=== PATIENT | female | born 1935 | race Caucasian/White ===

== ENCOUNTER 2021-06-20 16:03 | Outpatient (CLI) | payer MEDICARE, OTHER, SELFPAY ==
--- NOTE | 2021-06-20 16:20 | MRI_ITS ---
We are attempting to reach an attending provider to discuss findings. An addendum with communication details will be sent when the communication is complete. EXAM: MR HEAD WITHOUT INTRAVENOUS CONTRAST CLINICAL INDICATION: TIA,BILAT CAROTID ARTERY STENOSIS TECHNIQUE: Multiplanar and multisequence MR images of the brain were obtained without intravenous contrast. This report was created using Trist report generation technology. COMPARISON: None. FINDINGS: BRAIN AND EXTRA-AXIAL SPACES: There is abnormal diffusion weighted signal in the Right thalamus. There is a correlation abnormal area of low ADC signal. This is consistent for an ischemic infarction. Chronic involutional changes of the brain. No intra- or extra-axial hemorrhage. No intracranial mass or mass effect. Posterior fossa structures are unremarkable. Ventricles are appropriate for age. No hydrocephalus. Basal cisterns are patent. SELLA: Unremarkable. Normal sella turcica, pituitary gland, infundibular stalk, optic chiasm and hypothalamus. AUDITORY SYSTEM: Unremarkable. The internal auditory canals are patent. BONES/JOINTS: Unremarkable. No discrete lytic or blastic abnormalities. SINUSES: Unremarkable as visualized. Clear. MASTOID AIR CELLS: Unremarkable as visualized. Clear. ORBITS: Unremarkable as visualized. Both globes, extraocular muscles, optic nerves and retrobulbar fat appear unremarkable. VASCULATURE: Unremarkable as visualized. Normal flow voids in the major intracranial circulation. 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 Electronically Signed: Tomas Chi MD at 18:05 EST Reading Location ID and State: [facility] / [place] , Service support ,
--- NOTE | 2021-06-20 16:20 | MRI_ITS ---
EXAM: MR ANGIOGRAPHY NECK WITHOUT INTRAVENOUS CONTRAST CLINICAL INDICATION: CAROTID ARTERY STENOSIS, BILAT, TIA TECHNIQUE: Routine carotid MR angiogram protocol was performed without intravenous contrast. 3D reconstructions were reviewed. Nascet criteria using the distal ICAs for comparison were used for evaluation of stenoses. This report was created using Bleachers report Query Hunter technology. COMPARISON: None. FINDINGS: RIGHT COMMON CAROTID ARTERY: Unremarkable. No occlusion or significant stenosis. No dissection. RIGHT INTERNAL CAROTID ARTERY: Unremarkable. Extracranial segment is patent with no occlusion or significant stenosis. No dissection. RIGHT EXTERNAL CAROTID ARTERY: Unremarkable. No occlusion. RIGHT VERTEBRAL ARTERY: Unremarkable. No occlusion or significant stenosis. No dissection. LEFT COMMON CAROTID ARTERY: Unremarkable. No occlusion or significant stenosis. No dissection. LEFT INTERNAL CAROTID ARTERY: There is mild atherosclerotic plaque formation of the origin of the right and left internal carotid artery with less than 50% cross sectional diameter stenosis. ALL ABOVE CRITERIA BY NASCET. No dissection. LEFT EXTERNAL CAROTID ARTERY: Unremarkable. No occlusion. LEFT VERTEBRAL ARTERY: Unremarkable. No occlusion or significant stenosis. No dissection. GREAT VESSELS OF AORTIC ARCH: Unremarkable. No significant stenosis. CAROTID STENOSIS REFERENCE USING NASCET CRITERIA: % ICA stenosis = (1 - narrowest ICA diameter/diameter of distal cervical ICA) x 100. Mild - <50% stenosis. Moderate - 50-69% stenosis. Severe - 70-94% stenosis. Near occlusion - 95-99% stenosis. Occluded - 100% stenosis. MRI/MRA Neck without Contrast IMPRESSION: There is mild atherosclerotic plaque formation of the origin of the right and left internal carotid artery with less than 50% cross sectional diameter stenosis. ALL ABOVE CRITERIA BY NASCET. Electronically Signed: Tomas Chi MD at 18:05 EST ,
== END 2021-06-20 23:59 | disposition home or self-care (01) ==
LOC: MRI 16:06
PROVIDERS: PCP Student in an Organized Health Care Education/Training Program; Visit Provider Surgery Vascular Surgery
DX: G45.9 Transient cerebral ischemic attack, unspecified (principal); E10.9 Type 1 diabetes mellitus without complications; I10 Essential (primary) hypertension
CPT/HCPCS: 70547; 70551

== ENCOUNTER 2021-09-27 10:07 | Emergency (ER) | payer MEDICARE, OTHER, SELFPAY ==
[2021-09-27 10:08] VITALS: BP 179/73; PULSE 62; RESP 18; TEMP 36.6; O2SAT 99; BMI 25.7
--- NOTE | 2021-09-27 10:36 | CT_ITS ---
STUDY: CT BRAIN WITHOUT CONTRAST REASON FOR EXAM: Female, 85 years old. History of fall. RADIATION DOSAGE (If Supplied By Facility): CTDIvol = ( 44.99 ) mGy, DLP = ( 796.11 ) mGycm TECHNIQUE: Transaxial CT imaging of the brain was performed without administration of intravenous contrast material. Individualized dose optimization techniques were used for this CT. COMPARISON: No relevant priors. FINDINGS: 1.4 cm x 3 cm left preorbital hematoma. Normal calvarium. There is mild cerebral atrophy with widening of the extra-axial spaces and ventricular dilatation. Normal white matter tracts of the cerebral hemispheres. Normal basal ganglia and thalami. Normal brainstem. Normal cerebellum. There is no intracranial hemorrhage. There are no findings of an acute ischemic infarction. Mucosal thickening of the maxillary sinuses bilaterally. CT/Brain/Head without Contrast IMPRESSION: Chronic involutional changes of the brain. Left preorbital hematoma. Electronically Signed: Husam Lynn MD at 11:19 EDT ,
--- NOTE | 2021-09-27 10:36 | CT_ITS ---
STUDY: CT CERVICAL SPINE WITHOUT CONTRAST REASON FOR EXAM: Female, 85 years old. Trauma RADIATION DOSAGE (If Supplied By Facility): CTDIvol = ( 15.71 ) mGy, DLP = ( 297.10 ) mGycm TECHNIQUE: High resolution transaxial imaging was performed without contrast material. Sagittal and coronal images were reconstructed. Individualized dose optimization techniques were used for this CT. COMPARISON: None FINDINGS: Normal craniovertebral junction. Normal anterior atlantoaxial articulation. Normal odontoid process. Normal cervical lordosis. Normal vertebral bodies and posterior osseous elements. C2-3: Mild degree of this space narrowing at the C2-C3 level with a mild central posterior spondylosis causing minimal deformity of the central canal. C3-4: Normal endplates. Normal disc height and morphology. Normal central canal and intervertebral neuroforamina. C4-5: Normal endplates. Normal disc height and morphology. Normal central canal and intervertebral neuroforamina. C5-6: Moderate degree of disc space narrowing. Spondylosis. Uncovertebral arthrosis. Moderate degree of right neural foraminal stenosis. C6-7: Marked degree of disc space narrowing and spondylosis. Left facet joint osteoarthritis and hypertrophy. No significant stenosis is seen. C7-T1: Normal endplates. Normal disc height and morphology. Normal central canal and intervertebral neuroforamina. Atherosclerotic plaque formation of the carotid bifurcation. CT/Spine Cervical without Contras IMPRESSION: Multilevel degenerative changes, as described above. Electronically Signed: Husam Lynn MD at 11:21 EDT ,
--- NOTE | 2021-09-27 10:36 | CT_ITS ---
STUDY: CT MAXILLOFACIAL SINUSES REASON FOR EXAM: Female, 85 years old. History of fall. Headaches weakness and bilateral black eyes. RADIATION DOSAGE (If Supplied By Facility): CTDIvol = ( 29.38 ) mGy, DLP = ( 562.15 ) mGycm TECHNIQUE: The patient was scanned in a multi detector CT scanner. High resolution axial imaging was performed without the administration of intravenous contrast material. Sagittal and coronal images were reconstructed. Individualized dose optimization techniques were used for this CT. COMPARISON: None. FINDINGS: FRONTAL SINUSES: Normal aeration, without mucosal inflammatory disease. ETHMOIDAL SINUSES: Normal aeration, without mucosal inflammatory disease. MAXILLARY SINUSES: Partial opacification of the maxillary sinuses bilaterally. SPHENOIDAL SINUSES: Normal aeration, without mucosal inflammatory disease. There is patency of the bilateral maxillary infundibuli with normal uncinate processes, ethmoid bullae, and hiatus semilunaris. Normal bilateral middle turbinates. Normal bilateral inferior turbinates. Normal midline nasal septum. There is patency of the bilateral nasal airways. There is evidence of a 1.8 cm x 3 cm left preorbital hematoma. Soft tissue swelling overlying the left maxillary region. The visualized bilateral orbital contents are normal. CT/Sinus/Facial Bone IMPRESSION: 1.8 cm x 3 cm left preorbital hematoma with soft tissue swelling overlying the left axillary region. Partial opacification of the maxillary sinuses bilaterally. Electronically Signed: Husam Lynn MD at 11:18 EDT ,
--- NOTE | 2021-09-27 12:55 | ED.VIS.FALL ---
HPI HPI - Fall History of Present Illness Chief Complaint: Fall Informant: patient and family Occured/Mechanism Occurred: Days Narrative Narrative: Patient presents after a fall 2 days ago. She states she was walking in the kitchen and suddenly fell. She did not lose consciousness. She is not sure why she fell. She presents with periorbital ecchymosis. She has a mild headache. She has had no nausea or vomiting. She denies vision change. She is not on an anticoagulant. [facility] Medical History (Updated 09/27/21 @ 16:[address] Mala Orozco MD) Diabetes Hyperlipidemia Hypertension Home Medications Ca carb-Ca gluc-Mg ox-Mg gluco 1 ea PO DAILY 03/19/17 [History Last Taken Unknown] aspirin 81 mg PO DAILY 03/19/17 [History Last Taken 03/20/17] bisoprolol-hydrochlorothiazide 1 tab PO DAILY 03/19/17 [History Last Taken 03/20/17] diphenhydramine HCl 50 mg PO QHS 03/19/17 [History Last Taken Unknown] furosemide 20 mg PO DAILY PRN 03/19/17 [History Last Taken Unknown] insulin glargine [Lantus] 14 unit SQ BID 03/19/17 [History Last Taken Unknown] lisinopril 40 mg PO DAILY 03/19/17 [History Last Taken 03/20/17] methocarbamol 500 mg PO Q6H PRN PRN 03/19/17 [History Last Taken Unknown] vitamin E 400 unit PO BID 03/19/17 [History Last Taken Unknown] Allergy/AdvReac Type Severity Reaction Status Date / Time bupivacaine Allergy Unknown Verified 09/27/21 10:10 [From Sensorcaine/Epinephrine] epinephrine Allergy Unknown Verified 09/27/21 10:10 [From Sensorcaine/Epinephrine] iodine Allergy Unknown Verified 09/27/21 10:10 meperidine [From Demerol] Allergy Unknown Verified 09/27/21 10:10 Social History Smoking Status: Never smoker ROS ROS ED Constitutional Constitutional ED: Denies chills or fever(s) Eyes Eyes: Reports other Details: Left eyelid swelling. ; Denies change in vision ENT ENT ED: Denies sore throat Cardiovascular Cardiovascular: Denies chest pain Respiratory/Chest Respiratory/Chest: Denies cough or dyspnea Gastrointestinal Gastrointestinal: Denies abdominal pain, nausea or vomiting Musculoskeletal Musculoskeletal: Reports neck pain; Denies back pain Integumentary Denies rash Neurologic Neurologic: Denies headache(s) or weakness Allergic/Immunologic Allergic/Immunologic ED: Denies urticaria EXAM Physical Exam Const Vital Signs: 09/27/21 10:08 09/27/21 13:03 Temperature 97.8 F Temperature Source Temporal Pulse Rate 62 72 Respiratory Rate 18 15 Blood Pressure 179/73 H 124/69 H Blood Pressure Mean 108 Pulse Ox 99 95 Oxygen Delivery Method Room Air Positive well nourished and well developed General Appearance ED: well developed HEENT Reports normocephalic HEENT Narrative: Patient does have a right periorbital ecchymosis. She has a hematoma noted to the left eyebrow and upper lid. When her left eye is opened the globe appears unaffected. Extraocular movements are fully intact. Eyes PERRL and EOMs intact bilaterally Chest Wall inspection of chest normal and palpation of chest normal Resp normal respiratory effort and clear to auscultation bilaterally Cardio regular rate and regular rhythm GI non-tender Palpation: soft Back/Spine no CVA tenderness Extremity normal to inspection and full ROM Neuro oriented x3 Neuro Narrative: No focal neurologic deficits Sensorium / Orientation: alert Psych mental status grossly normal MDM MDM MDM Narrative Medical decision making narrative: Patient sent for CT scans of the head, C-spine, facial bones. Radiography Diagnostic Testing: Clinical Impression(s) from Imaging Studies Brain CT 09/27/21 10:36 IMPRESSION: Chronic involutional changes of the brain. Left preorbital hematoma. Electronically Signed: Husam Lynn MD at 11:19 EDT , Cervical Spine CT 09/27/21 10:36 IMPRESSION: Multilevel degenerative changes, as described above. Electronically Signed: Husam Lynn MD at 11:21 EDT , Facial/Sinus 09/27/21 10:36 IMPRESSION: 1.8 cm x 3 cm left preorbital hematoma with soft tissue swelling overlying the left axillary region. Partial opacification of the maxillary sinuses bilaterally. Electronically Signed: Husam Lynn MD at 11:18 EDT , Treatment and Re-Evaluation Narrative: CT scan significant only for a preorbital hematoma over the left eye. No bony injury noted. Test results discussed with patient and family at bedside. She will continue ice packs to the area. Discharge Plan Triage Chief Complaint: Fall ED Provider: Mala Orozco Dx/Rx/DC Orders Clinical Impression: Fall, Closed head injury, Hematoma Instructions: ED Head Injury (Adult), ED Hematoma Prescriptions: No Action methocarbamol 500 MG tablet 500 mg PO Q6H PRN PRN (Reason: Muscle Spasm) RF: 0 insulin glargine [Lantus U-100 Insulin] 100 UNIT/ML solution 14 unit SQ BID RF: 0 bisoprolol-hydrochlorothiazide 1 TAB tablet 1 tab PO DAILY RF: 0 diphenhydramine HCl 25 MG capsule 50 mg PO QHS RF: 0 aspirin 81 MG tablet,chewable 81 mg PO DAILY RF: 0 furosemide 20 MG tablet 20 mg PO DAILY PRN (Reason: swelling) RF: 0 lisinopril 40 MG tablet 40 mg PO DAILY RF: 0 vitamin E 400 UNIT capsule 400 unit PO BID RF: 0 Ca carb-Ca gluc-Mg ox-Mg gluco 1 EACH tablet 1 ea PO DAILY RF: 0 Primary Care Provider: Isacc Saravia Referrals: Isacc Saravia DO [Primary Care Provider] - 5-7 Days Disposition Disposition: Home, Self Care Discharge Date/Time: 09/27/21 13:03
[2021-09-27 13:03] VITALS: BP 124/69; PULSE 72; RESP 15; O2SAT 95
== END 2021-09-27 13:03 | disposition home or self-care (01) ==
PROVIDERS: Emergency Provider Emergency Medicine; PCP Student in an Organized Health Care Education/Training Program; Visit Provider Emergency Medicine
DX: S00.12XA Contusion of left eyelid and periocular area, initial encounter (principal); E11.9 Type 2 diabetes mellitus without complications; Z79.4 Long term (current) use of insulin; W18.30XA Fall on same level, unspecified, initial encounter; Y93.01 Activity, walking, marching and hiking; Y99.8 Other external cause status; Y92.000 Kitchen of unspecified non-institutional (private) residence as the place of occurrence of the external cause; I10 Essential (primary) hypertension; Z79.82 Long term (current) use of aspirin; Z79.899 Other long term (current) drug therapy
CPT/HCPCS: 70450; 70486; 72125; 99282

== ENCOUNTER → 2022-10-27 | Outpatient (CLI) | payer MEDICARE, OTHER, SELFPAY ==
--- NOTE | 2022-10-27 08:48 | EKG12_ITS ---
Test Reason : PREOP Blood Pressure : / mmHG Vent. Rate : 066 BPM Atrial Rate : 066 BPM P-R Int : 184 ms QRS Dur : 098 ms QT Int : 402 ms P-R-T Axes : 023 -44 058 degrees QTc Int : 421 ms Normal sinus rhythm Left axis deviation Abnormal ECG Confirmed by JIMMIE HYDE, FRANCINE ([id number]), editor news JUJU MOSLEY ([id number]) on 10/27/2022 12:54:36 PM Referred By: Edis Martinez Confirmed By:FRANCINE SAMUEL MD
[2022-10-27 10:15] LABS: Hematocrit 40.4 % (37-47); Hemoglobin 12.9 g/dL (12.0-15.0); Mean Corp Hgb Conc 31.9 g/dL (32-36); Mean Corpuscular Hgb 30.1 pg (27.0-32.0); Mean Corpuscular Volume 94.2 fL (81-99); Mean Platelet Vol. 10.6 fl (6.2-12.0); Platelet Count 288 K/mm3 (150-450); RBC Distribution Width CV 13.1 % (11.6-14.6); RBC Distribution Width SD 45.2 fl (35.1-43.9); Red Blood Count 4.29 M/mm3 (4.2-5.4); White Blood Count 7.5 K/mm3 (4.4-11.0)
[2022-10-27 10:42] LABS: Anion Gap 5 (5-15); BUN 21 mg/dL (7-18); BUN/Creat Ratio 25.5 RATIO (10-20); Calcium,Total 9.2 mg/dL (8.5-10.1); Chloride 106 mmol/L (98-107); Creatinine, Serum 0.82 mg/dL (0.55-1.02); EST Glomerular Filtration Rate 70 mL/min (>60); Est Glom Filt Rate - Afr Amer 84 mL/min (>60); Glucose 245 mg/dL (74-106); Sodium Level 138 mmol/L (136-145)
== END | disposition home or self-care (01) ==
PROVIDERS: PCP Student in an Organized Health Care Education/Training Program; Referring Provider Otolaryngology; Visit Provider Otolaryngology
DX: Z01.818 Encounter for other preprocedural examination (principal)
CPT/HCPCS: 36415; 80048; 85027; 93005

== ENCOUNTER → 2024-05-26 | Outpatient (CLI) | payer MEDICARE, OTHER, SELFPAY ==
--- NOTE | 2024-05-26 09:19 | CDU_ITS ---
Reason For Study Reason For Study: Retinal Ischemia Rt. Velocities/BP Lt. Velocities/BP Prox CCA 85/10 cm/sec. Prox CCA 68/11 cm/sec. Mid CCA 91/15 cm/sec. Mid CCA 73/12 cm/sec. Dist CCA 69/11 cm/sec. Dist CCA 73/14 cm/sec. Prox ICA 70/16 cm/sec. Prox ICA 150/32 cm/sec. Mid ICA 96/24 cm/sec. Mid ICA 100/25 cm/sec. Dist ICA 93/20 cm/sec. Dist ICA 108/26 cm/sec. Rt. ICA/CCA = 1.1. Lt. ICA/CCA = 2.1. Prox ECA 83/0 cm/sec. Prox ECA 118/0 cm/sec. Rt. Vert. 0 cm/sec. Lt. Vert. 68/13 cm/sec. Right Extracranial There is heterogeneous, irregular atherosclerotic plaque noted in the right common carotid artery. There is heterogeneous, irregular atherosclerotic plaque noted in the right internal carotid artery. The atherosclerotic plaque causes acoustic shadowing. There is heterogeneous, irregular atherosclerotic plaque noted in the right external carotid artery. Flow could not be demonstrated in the right vertebral artery. Left Extracranial There is heterogeneous, irregular atherosclerotic plaque noted in the left common carotid artery. There is heterogeneous, irregular atherosclerotic plaque noted in the left internal carotid artery. The atherosclerotic plaque causes acoustic shadowing. There is heterogeneous, irregular atherosclerotic plaque noted in the left external carotid artery. Antegrade flow is noted in the left vertebral artery. Procedure Carotid Duplex 18232. This is a Carotid Duplex examination using B-mode, color flow and specral Doppler. Exam performed in department. VL/Carotid Duplex Ultrasound Interpretation Summary Mild (<50%) stenosis right extracranial internal carotid. Moderate (50-69%) stenosis left extracranial internal carotid. The right vertebral artery has no flow visualized. The Left vertebral is patent and antegrade. Limited due to calcific shadowing, alternative imaging may be beneficial. Ordering Physician: Perico Bell Referring Physician: Isacc Saravia Performed By: Altagracia Lancaster RDCS, RVT
[2024-05-26 10:56] LABS: CRP < 2.90 mg/L (0.0-3.0)
[2024-05-26 10:59] LABS: Erythrocyte Sedimentation Rate 9 mm/hr (0-30)
[2024-05-26 11:01] LABS: Absolute Lymphocyte Count 1.37 X10^3/uL (0.83-4.51); Absolute Neutrophil Count 6.4 X10^3/uL (2.0-7.7); Basophil# 0.06 X10^3/uL; Basophil% 0.7 % (0-1); Eosinophil# 0.11 X10^3/uL; Eosinophils% 1.3 % (0-5); Hematocrit 40.5 % (37-47); Hemoglobin 13.5 g/dL (12.0-15.0); Lymphocyte # 1.37 X10^3/ul (0.83-4.51); Lymphocyte % 16.1 % (19-41); Mean Corp Hgb Conc 33.3 g/dL (32-36); Mean Corpuscular Hgb 30.5 pg (27.0-32.0); Mean Corpuscular Volume 91.4 fL (81-99); Mean Platelet Vol. 11.3 fl (6.2-12.0); Monocyte# 0.54 X10^3/uL; Monocyte% 6.3 % (0-10); NRBC Flagged by Analyzer 0 % (0-5); Neutrophil # 6.41 X10^3/uL (2.7-7.7); Neutrophil % 75.1 % (47-70); Platelet Count 266 K/mm3 (150-450); RBC Distribution Width CV 13.2 % (11.6-14.6); Red Blood Count 4.43 M/mm3 (4.2-5.4); White Blood Count 8.5 K/mm3 (4.4-11.0)
== END | disposition home or self-care (01) ==
LOC: CVS 09:13
PROVIDERS: PCP Student in an Organized Health Care Education/Training Program; Referring Provider Ophthalmology; Visit Provider Ophthalmology
DX: H35.82 Retinal ischemia (principal)
CPT/HCPCS: 36415; 85025; 85652; 86140; 93880

== ENCOUNTER 2025-03-20 19:59 | Observation (INO) | payer MEDICARE, OTHER, SELFPAY ==
--- OUTSIDE RECORDS SUMMARY | 2025-03-20 19:40 | XMS RPT_ITS | CCD ---
Author Organization [facility] Care Team Providers Care Establishment Guide Name Role Phone MEDARDO GARCIA DO Primary Care Physician [phone] Jose WELLS MD, Medardo Primary Care Provider [phone] VARSHA JOB SERVICE CONSULTANT-CALL OUT CLERK, MEY A Primary Care Physi grey Ben Rounding Nurse, Jermain Unavailable Radha King RN, Marilou Osuna Unavailable Unavailable DEDETTLE DOROEL Attending Unavailable VARSHA JOB SERVICE CONSULTANT-CALL OUT CLERK, MEY A Primary Care Un available VARSHA JOB SERVICE CONSULTANT-CALL OUT CLERK, MEY A Attending Un available VARSHA JOB SERVICE CONSULTANT-CALL OUT CLERK, MEY A Primary Care Un available VENKAT LASSITER MD Consulting Unavailable VARSHA JOB SERVICE CONSULTANT-CALL OUT CLERK, MEY A Primary Care Un available TAMIKA GRACE MD Admitting Unavailable KOMAL ESTRADA MD Attending Unavailable VARSHA JOB SERVICE CONSULTANT-CALL OUT CLERK, MEY A Consulting Un available COSME WATSON MD Consulting Unavaila ble VARSHA JOB SERVICE CONSULTANT-CALL OUT CLERK, MEY A Attending Un available VARSHA JOB SERVICE CONSULTANT-CALL OUT CLERK, MEY A Primary Care Un available VARSHA JOB SERVICE CONSULTANT-CALL OUT CLERK, MEY A Primary Care Un available VARSHA JOB SERVICE CONSULTANT-CALL OUT CLERK, MEY A Attending Un available VARSHA JOB SERVICE CONSULTANT-CALL OUT CLERK, MEY A Primary Care Un available VARSHA JOB SERVICE CONSULTANT-CALL OUT CLERK, MEY A Attending Un available JONO VALLES MD Consulting Unavailable VARSHA JOB SERVICE CONSULTANT-CALL OUT CLERK, MEY A Primary Care Un available SALLY MARQUEZ MD Attending Unavailable TERI HYDE FACP, DESMOND Chambers Admitting Unavail able VARSHA JOB SERVICE CONSULTANT-CALL OUT CLERK, MEY A Primary Care Un available FARHEEN JOB SERVICE CONSULTANT-CALL OUT CLERKRAQUEL Admitting Unavail able O'CLARKE MD, SALLY Attending Unavailable JIMMY HYDE, SALLY Referring Unavailable BRAULIO HYDE, ABHIJEET Bridges Attending Unavail able HALKO DO, MEDARDO Primary Care Unavailable COSME HAGEN DO Attending Unavailable VARSHA JOB SERVICE CONSULTANT-CALL OUT CLERK, MEY A Primary Care Un available VARSHA JOB SERVICE CONSULTANT-CALL OUT CLERK, MEY A Primary Care Un available BRAULIO HYDE, ABHIJEET Bridges Attending Unavail able VARSHA JOB SERVICE CONSULTANT-CALL OUT CLERK, MEY A Primary Care Un available STAN HYDE, NEHAL Cuello Attending Unavailable VARSHA JOB SERVICE CONSULTANT-CALL OUT CLERK, MEY A Primary Care Un available BRAULIO HYDE, ABHIJEET Bridges Attending Unavail able VARSHA JOB SERVICE CONSULTANT-CALL OUT CLERK, MEY A Primary Care Un available REGINALD MCCALLUM MD Attending Unavailable ROBERTO HYDE, TAMIKA Consulting Unavailable VARSHA JOB SERVICE CONSULTANT-CALL OUT CLERK, MEY A Attending Un available VARSHA JOB SERVICE CONSULTANT-CALL OUT CLERK, MEY A Primary Care Un available Perico Maddox Referring Unavailable Perico Maddox Attending Unavailable Halko, Medardo Primary Care Unavailable Venkat Montano Attending Unavailable Perico Maddox Referring Unavailable Halko, Medardo Primary Care Unavailable BALTES JOB SERVICE CONSULTANT-CALL OUT CLERK, MARCO Primary Care Physician [phone] BALTES JOB SERVICE CONSULTANT-CALL OUT CLERK, MARCO Primary Care Unavailsantiago VARGAS MD, DAVION Osuna Attending Unavailable BALTES JOB SERVICE CONSULTANT-CALL OUT CLERK, MARCO Attending Unavailsantiago e BALTES JOB SERVICE CONSULTANT-CALL OUT CLERK, MARCO Primary Care Unavailsantiago MADDOX MD, PERICO Will Attending Unavailable VARSHA JOB SERVICE CONSULTANT-CALL OUT CLERK, MEY A Primary Care Un available Allergies Allergy Classification Reported Allergen(s) Allergy Type Date of Onset Reaction(s) Facility (20 sources) EPINEPHrine; Translations: [Epinephrine preparation (product)] Drug Allergy 2 SEVERE SHAKING, Unknown [facility] (20 sources) Iodine; Translations: [Iodine (substance)] Drug Allergy 2 HIVES, [facility] (19 sources) Meperidine; Translations: [meperidine] Drug Allergy 2 SEVERE N/V, [facility] (17 sources) rosuvastatin; Translations: [rosuvastatin] Drug Allergy Muscle pain (finding) [facility] (2 sources) Bupivacaine Drug Allergy 2 Unknown [facility] (1 source) Bupivacaine Drug Allergy 2 [facility] (1 source) Meperidine Drug Allergy 2 [facility] Medications Current Medications Medication Drug Class(es) Dates Sig (Normalized) Sig (Original) acetaminophen 500 mg oral tablet (7 sources) Start: 11-15-2023 End: 01-12-2024 Tylenol Extra Strength 500 mg oral tablet Dose : 1,000 mg = 2 tab(s), Oral, BID, X 30 day(s), # 120 tab(s), 0 Refill(s), 01/12/24 11:41:00 AM EDT, Pharmacy: [place] [facility] [id number], Left shoulder pain, 162.6, cm, 12/12/23 23:59:00 EDT, Height, kg, 12/12/23 23:59:00 EDT, Dosing Weight Start Date: 12/13/23 Stop Date: 01/12/24 Status: Ordered Start: 03-13-2023 acetaminophen Dose : 650 mg = 2 tab(s), Oral, q6hr, PRN Pain, scale 1-10, 0 Refill(s) Start Date: 03/13/23 Status: Ordered Start: 03-13-2023 take 1 capsule by [facility] every four hours as needed Tylenol 325 mg oral capsule Dose : 650 mg =, Oral, q4h, PRN Temperature greater than 38.5 degrees C, 0 Refill(s) Start Date: 03/13/23 Status: Ordered Start: 03-13-2023 Tylenol Dose : 650 mg = 1 supp, Rectal, q4h, PRN Temperature greater than 38.5 degrees C, 0 Refill(s) Start Date: 03/13/23 Status: Ordered Alcohol Swabs (8 sources) Start: 07-29-2024 Alcohol Swabs See Instructions, dx E11.65, Z74.9 test blood sugars 4 times daily (before meals and bedtime) , 300 Each EtOH swabs, 90 day supply, 3 refills, # 300 EA, 3 Refill(s), Pharmacy: [facility], Diabetes mellitus with microalbuminuria Diabetic peripheral vascular disease, 157.8, cm, 07/29/24 8:38:00 EDT, Height, 66.2, kg, 07/29/24 8:38:00 EDT, Dosing Weight Start Date: 07/29/24 Status: Ordered Medication Dispense Status: Completed Quantity: 300.0 Unit: EA Total Allowed Fills: 4 Fills Dispensed: 0 Indications: Type 2 diabetes mellitus with diabetic peripheral angiopathy without gangrene; Type 2 diabetes mellitus with other diabetic kidney complication; Start: 06-08-2023 Alcohol Swabs See Instructions, Supply 1 box, 90 day supply, test blood sugars once daily, # 1 EA, 3 Refill(s), Pharmacy: [facility], Diabetes mellitus with microalbuminuria Diabetic peripheral vascular disease, 158.5, cm, 05/28/23 13:41:00 EST, Height, 64.5, kg, 05/28/23 13:41:00 EST, Dosing Weight Start Date: 06/08/23 Status: Ordered amoxicillin 500 mg oral capsule (1 source) Penicillin-class Antibacterial Start: 08-18-2022 End: 08-28-2022 amoxicillin 500 mg oral capsule Dose : 500 mg = 1 cap(s), Oral, BID, X 10 day(s), # 20 cap(s), 0 Refill(s), 08/28/22 13:27:00 EDT, Hyperglycemia Start Date: 08/18/22 Stop Date: 08/28/22 Status: Ordered atorvastatin 10 mg oral tablet (10 sources) HMG-CoA Reductase Inhibitor Start: 12-12-2024 End: 06-30-2025 atorvastatin 10 mg oral tablet Dose : 10 mg = 1 tab(s), Oral, Daily, # 100 tab(s), 1 Refill(s), Pharmacy: [facility], History of CVA (cerebrovascular accident) Type 2 diabetes mellitus, 159, cm, 12/12/24 11:05:00 EDT, Height, kg, 12/12/24 11:05:00 EDT, Dosing Weight Start Date: 12/12/24 Stop Date: 06/30/25 Status: Ordered Medication Dispense Status: Completed Quantity: 100.0 Unit: tab(s) Total Allowed Fills: 2 Fills Dispensed: 0 Indications: Type 2 diabetes mellitus without complications; Personal history of transient ischemic attack (TIA), and cerebral infarction without residual deficits; Start: 02-21-2023 End: 08-20-2023 atorvastatin 80 mg oral tabl et Dose : 80 mg = 1 tab(s), Oral, qDay, # 90 tab(s), 1 Refill(s), Pharmacy: [facility] #[id number], 160, cm, 02/21/23 13:38:00 EST, Height, kg, 02/21/23 13:38:00 EST, Dosing Weight Start Date: 02/21/23 Stop Date: 08/20/23 Status: Ordered Start: 04-04-2022 End: 10-01-2022 atorvastatin 80 mg oral tabl et Dose : 80 mg = 1 tab(s), Oral, qDay, # 90 tab(s), 1 Refill(s), Pharmacy: [facility] #[id number], 159, cm, 04/04/22 10:05:00 EST, Height, kg, 04/04/22 10:05:00 EST, Dosing Weight Start Date: 04/04/22 Stop Date: 10/01/22 Status: Ordered Start: 06-21-2021 End: 12-18-2021 atorvastatin 80 mg oral tabl et Dose : 80 mg = 1 tab(s), Oral, qDay, # 90 tab(s), 1 Refill(s), Pharmacy: [id number] 159, cm, 06/21/21 14:11:00 EST, Height, kg, 06/21/21 14:11:00 EST, Dosing Weight Start Date: 06/21/21 Stop Date: 12/18/21 Status: Ordered Start: 05-10-2021 End: 11-06-2021 atorvastatin 40 mg oral tabl et Dose : 40 mg = 1 tab(s), Oral, qDay, # 90 tab(s), 1 Refill(s), Pharmacy: [facility] 159, cm, 05/10/21 8:01:00 EST, Height, kg, 05/10/21 8:01:00 EST, Dosing Weight Start Date: 05/10/21 Stop Date: 11/06/21 Status: Ordered bisoprolol fumarate 5 mg oral tablet (16 sources) beta-Adrenergic Tabby Start: 07-29-2024 bisopr olol 5 mg oral tablet Dose : 5 mg = 1 tab(s), Oral, qDay, # 90 tab(s), 1 Refill(s), Pharmacy: [facility], 157.8, cm, 07/29/24 8:38:00 EDT, Height, kg, 07/29/24 8:38:00 EDT, Dosing Weight Start Date: 07/29/24 Status: Ordered Medication Dispense Status: Completed Quantity: 90.0 Unit: tab(s) Total Allowed Fills: 2 Fills Dispensed: 0 Start: 06-01-2023 bisoprolol 5 m g oral tablet Dose : 5 mg = 1 tab(s), Oral, qDay, # 90 tab(s), 1 Refill(s), Pharmacy: [place] [id number], 162.6, cm, 12/12/23 23:59:00 EDT, Height, kg, 12/12/23 23:59:00 EDT, Dosing Weight Start Date: 12/13/23 Status: Ordered Start: 03-12-2023 End: 03-12-2023 bisoprolol Start: 03/12/23 9 :00:00 AM EST, Dose = 5 mg, = 1 tab(s), Oral, 03/10/23 18:19:00 EST Start Date: 03/12/23 Stop Date: 03/12/23 Status: Completed Start: 02-21-2023 bisoprolol 5 m g oral tablet Dose : 5 mg = 1 tab(s), Oral, qDay, # 90 tab(s), 1 Refill(s), [id number], 160, cm, 02/21/23 13:38:00 EST, Height, kg, 02/21/23 13:38:00 EST, Dosing Weight Start Date: 02/21/23 Status: Ordered Start: 04-04-2022 bisoprolol 5 m g oral tablet Dose : 5 mg = 1 tab(s), Oral, qDay, # 90 tab(s), 1 Refill(s), Pharmacy: [facility] #[id number], 159, cm, 04/04/22 10:05:00 EST, Height, kg, 04/04/22 10:05:00 EST, Dosing Weight Start Date: 04/04/22 Status: Ordered Start: 06-09-2021 bisoprolol 5 m g oral tablet Dose : 5 mg = 1 tab(s), Oral, qDay, stop HCTZ, # 90 tab(s), 0 Refill(s), [facility], 159, cm, 05/10/21 8:01:00 EST, Height, kg, 05/10/21 8:01:00 EST, Dosing Weight Start Date: 06/09/21 Status: Ordered bisoprolol fumarate 5 mg / hydroCHLOROthiazide 6.25 mg oral tablet (2 sources) Thiazide Diuretic, beta-Adrenergic Tabby Start: 03-19-2017 take 1 tablet by mouth once daily Bisoprolol-Hydrochlorothiazide Active 1 TABLET PO DAILY March 19, 2017 3:21pm Blood Glucose Test Machine (8 sources) Start: 07-29-2024 Blood Glucose Test Machine S ee Instructions, Use as directed Brand type per insurance or patient preference dx E11.65, Z74.9 test blood sugars 4 times daily (before meals and bedtime); 1 glucometer, # 1 EA, 0 Refill(s), Pharmacy: [facility], Diabetes mellitus with microalbuminuria Diabetic peripheral vascular disease, 157.8, cm, 07/29/24 8:38:00 EDT, Height, 66.2, kg, 07/29/24 8:38:00 EDT, Dosing Weight Start Date: 07/29/24 Status: Ordered Medication Dispense Status: Completed Quantity: 1.0 Unit: EA Total Allowed Fills: 1 Fills Dispensed: 0 Indications: Type 2 diabetes mellitus with diabetic peripheral angiopathy without gangrene; Type 2 diabetes mellitus with other diabetic kidney complication; Start: 06-08-2023 Blood Glucose Test Machine See Instructions, Use as directed Brand type per insurance or patient preference, # 1 EA, 0 Refill(s), Pharmacy: [facility], Diabetes mellitus with microalbuminuria Diabetic peripheral vascular disease, 158.5, cm, 05/28/23 13:41:00 EST, Height, 64.5, kg, 05/28/23 13:41:00 EST, Dosing Weight Start Date: 06/08/23 Status: Ordered Blood Pressure Cuff (8 sources) Start: 04-02-2023 Blood Pressure Cuff See Instructions, Check and Log Blood Pressure Daily, # 1 EA, 0 Refill(s), Pharmacy: [id number], HTN (hypertension) Type II diabetes mellitus, 162.6, cm, 03/14/23 18:13:00 EST, Height, 65.8, kg, 04/02/23 12:36:00 EST, Dosing Weight Start Date: 04/02/23 Status: Ordered Medication Dispense Status: Completed Quantity: 1.0 Unit: EA Total Allowed Fills: 1 Fills Dispensed: 0 Indications: Type 2 diabetes mellitus without complications; Essential (primary) hypertension; Start: 04-02-2023 Blood Pressure Cuff See Instructions, Check and Log Blood Pressure Daily, # 1 EA, 0 Refill(s), Pharmacy: [id number], HTN (hypertension) Type II diabetes mellitus, 162.6, cm, 03/14/23 18:13:00 EST, Height, 65.8, kg, 04/02/23 12:36:00 EST, Dosing Weight Start Date: 04/02/23 Status: Ordered Ca Carb-Ca Gluc-Mg Ox-Mg Gluco (2 sources) Start: 03-19-2017 take 1 mg by mouth once daily Ca Carb-Ca Gluc-Mg Ox-Mg Gluco Active 1 EACH PO DAILY March 19, 2017 3:21pm Start: 03-19-2017 take 1 mg by mouth once daily Ca Carb-Ca Gluc-Mg Ox-Mg Gluco Active 1 EACH PO DAILY March 19, 2017 1:00am cefdinir 300 mg oral capsule (1 source) Cephalosporin Antibacterial Start: 03-14-2023 End: 03-15-2023 cefdinir 300 mg oral capsule Dose : 300 mg = 1 cap(s), Oral, q12h, X 1 day(s), # 2 cap(s), 0 Refill(s), 03/15/23 2:55:00 PM EST, Pharmacy: [facility] #[id number], 162.6, cm, 03/10/23 17:55:00 EST, Height, 66.8, kg, 03/10/23 17:55:00 EST, Dosing Weight Start Date: 03/14/23 Stop Date: 03/15/23 Status: Ordered cefuroxime 500 mg oral tablet (1 source) Cephalosporin Antibacterial Start: 12-13-2023 End: 12-16-2023 cefuroxime 500 mg oral tablet Dose : 500 mg = 1 tab(s), Oral, BID, X 3 day(s), # 6 tab(s), 0 Refill(s), 12/16/23 5:00:00 PM EDT, Pharmacy: [facility]/pharmacy #[id number], 162.6, cm, 12/12/23 23:59:00 EDT, Height, 66.7, kg, 12/12/23 23:59:00 EDT, Dosing Weight Start Date: 12/13/23 Stop Date: 12/16/23 Status: Ordered citalopram 20 mg oral tablet (3 sources) Serotonin Reuptake Inhibitor Start: 06-27-2021 citalopram 20 mg oral tablet Dose : 20 mg = 1 tab(s), Oral, qDay, # 90 tab(s), 0 Refill(s), [facility]: [facility] 159, cm, 06/21/21 14:11:00 EST, Height, kg, 06/21/21 14:11:00 EST, Dosing Weight Start Date: 06/27/21 Status: Ordered Start: 05-10-2021 citalopram 20 mg oral tablet Dose : 20 mg = 1 tab(s), Oral, qDay, # 90 tab(s), 0 Refill(s), Pharmacy: [facility] 159, cm, 05/10/21 8:01:00 EST, Height, kg, 05/10/21 8:01:00 EST, Dosing Weight Start Date: 05/10/21 Status: Ordered clopidogrel 75 mg oral tablet (2 sources) [id number] Platelet Inhibitor Start: 03-13-2023 End: 05-12-2023 Plavix 75 mg oral tablet Dose : 75 mg = 1 tab(s), Oral, qDay, # 30 tab(s), 1 Refill(s), Pharmacy: [facility] #[id number], 162.6, cm, 03/10/23 17:55:00 EST, Height, kg, 03/10/23 17:55:00 EST, Dosing Weight Start Date: 03/13/23 Stop Date: 05/12/23 Status: Ordered Continuous Glucose Monitoring System (2 sources) Start: 02-21-2023 Continuous Glu cose Monitoring System See Instructions, Dexcom G7 gas inspector, 1 EA, no refills., # 1 EA, 0 Refill(s), Pharmacy: [facility] #[id number], Type 2 diabetes mellitus, with long-term current use of insulin Uncontrolled diabetes mellitus with hyperglycemia, 160, cm, 02/21/23 13:38:00 EST, Height, 64.3, kg, 02/21/23 13:38:00 EST, Dosing Weight Start Date: 02/21/23 Status: Ordered Start: 02-21-2023 Continuous Glu cose Monitoring System See Instructions, Dexcom G7 sensors, quantity 9, 90 day supply, 3 refills use as directed apply 1 sensor every 10 days, # 9 EA, 3 Refill(s), Pharmacy: [facility] #[id number], Type 2 diabetes mellitus, with long-term current use of insulin Uncontrolled diabetes mellitus with hyperglycemia, 160, cm, 02/21/23 13:38:00 EST, Height, 64.3, kg, 02/21/23 13:38:00 EST, Dosing Weight Start Date: 02/21/23 Status: Ordered diclofenac sodium 0.01 mg/mg topical gel (1 source) Nonsteroidal Anti-inflammatory Drug Start: 11-15-2023 End: 12-15-2023 Voltaren 1% topical gel 2 = gram(s), Topical, QID, # 100 gram(s), 0 Refill(s), Pharmacy: [facility] #[id number], Gel, 155, cm, 11/15/23 11:07:00 EDT, Height, 66.1, kg, 11/15/23 11:02:00 EDT, Dosing Weight Start Date: 11/15/23 Stop Date: 12/15/23 Status: Ordered diphenhydrAMINE hydrochloride 25 mg oral capsule (2 sources) Histamine-1 Receptor Antagonist Start: 03-19-2017 take 50 mg by mouth at bedtime Diphenhydramine Hcl Active 50 MG PO AT BEDTIME March 19, 2017 3:21pm DME MISCellaneous (12 sources) Start: 03-14-2023 DME MISCellaneous See Instructions, Pen needles, enough for 4 injections daily x 30 days. Any 4/ 5 mm pen needle in stock and covered by insurance is appropriate, # 1 EA, 0 Refill(s), Pharmacy: [facility] #[id number], Diabetes, 162.6, cm, 03/10/23 17:55:00 EST, Height, 66.8, kg, 03/10/23 17:55:00 EST, Dosing Weight Start Date: 03/14/23 Status: Ordered Medication Dispense Status: Completed Quantity: 1.0 Unit: EA Total Allowed Fills: 1 Fills Dispensed: 0 Indications: Type 2 diabetes mellitus without complications; Start: 03-14-2023 DME MISCellane ous See Instructions, Pen needles, enough for 4 injections daily x 30 days. Any 4/ 5 mm pen needle in stock and covered by insurance is appropriate, # 1 EA, 0 Refill(s), Pharmacy: [facility] #[id number], Diabetes, 162.6, cm, 03/10/23 17:55:00 EST, Height, 66.8, kg, 03/10/23 17:55:00 EST, Dosing Weight Start Date: 03/14/23 Status: Ordered Start: 05-10-2021 DME MISCellane ous See Instructions, dx E11.65, Z79.4; check BGT 4 times per day, injects insulin 4x per day; dispense 150 test strips, 11 refills, # 150 EA, 11 Refill(s), Pharmacy: [facility] 159, cm, 05/10/21 8:01:00 EST, Height, 70.5, kg, 05/10/21 8:01:... Start Date: 05/10/21 Status: Ordered escitalopram 10 mg oral tablet (1 source) Serotonin Reuptake Inhibitor Start: 01-17-2023 End: 01-12-2024 Lexapro 10 mg oral tablet Dose : 10 mg = 1 tab(s), Oral, qDay, # 30 tab(s), 11 Refill(s), Pharmacy: [facility] #[id number], Major depression, recurrent, 158, cm, 01/17/23 13:24:00 EDT, Height, kg, 01/17/23 13:24:00 EDT, Dosing Weight Start Date: 01/17/23 Stop Date: 01/12/24 Status: Ordered ezetimibe 10 mg oral tablet (2 sources) Dietary Cholesterol Absorption Inhibitor Start: 03-14-2023 ezetimibe 10 mg oral tablet Dose : 10 mg = 1 tab(s), Oral, qDay, # 30 tab(s), 0 Refill(s), [facility]: [id number], 162.6, cm, 03/10/23 17:55:00 EST, Height, kg, 03/10/23 17:55:00 EST, Dosing Weight Start Date: 03/14/23 Status: Ordered FreeStyle Shoshana 3 [place] (1 source) Start: 09-12-2024 FreeStyle Shoshana 3 [place] See Instructions, Use reader to scan sensor once with every new sensor. Keep reader within 33 feet of the sensor and transmitter for daily blood sugar checks, # 1 EA, 0 Refill(s), Pharmacy: [facility], 157.8, cm, 07/29/24 8:38:00 EDT, Height, 64.8, kg, 08/29/24 15:07:00 EDT, Dosing Weight Start Date: 09/12/24 Status: Ordered Medication Dispense Status: Completed Quantity: 1.0 Unit: EA Total Allowed Fills: 1 Fills Dispensed: 0 FreeStyle Shoshana 3+ Sensors (1 source) Start: 09-02-2024 FreeStyle Shoshana 3+ Sensors See Instructions, Place once sensor to the back of the upper arm every 15 days. Use reader or phone ricco for daily blood sugar checks. 1 month supply, # 2 EA, 6 Refill(s), Pharmacy: [facility], 157.8, cm, 07/29/24 8:38:00 EDT, Height, 64.8, kg, 08/29/24 15:07:00 EDT, Dosing Weight Start Date: 09/02/24 Status: Ordered Medication Dispense Status: Completed Quantity: 2.0 Unit: EA Total Allowed Fills: 7 Fills Dispensed: 0 furosemide 20 mg oral tablet (2 sources) Loop Diuretic Start: 03-19-2017 take 20 mg by mouth once daily Furosemide Active 20 MG PO DAILY March 19, 2017 3:21pm gabapentin 100 mg oral capsule (1 source) Anti-epileptic Agent Start: 03-27-2023 End: 04-26-2023 gabapentin 100 mg oral capsule Dose : 100 mg = 1 cap(s), Oral, TID, # 90 cap(s), 0 Refill(s), [facility]: [id number], Brachial neuritis, 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, cm, 03/14/23 18:13:00 EST, Height, 63.1, kg, 03/14/23 18:13:00 EST, Dosing Weight Start Date: 03/27/23 Stop Date: 04/26/23 Status: Ordered glipiZIDE er 5 mg 24 hr extended release oral tablet (1 source) Sulfonylurea Start: 09-19-2024 glipiZIDE 5 mg oral tablet, extended release Dose : 5 mg = 1 tab(s), Oral, qDay, Take with food, # 90 tab(s), 1 Refill(s), Pharmacy: [facility], 157.8, cm, 07/29/24 8:38:00 EDT, Height, kg, 08/29/24 15:07:00 EDT, Dosing Weight Start Date: 09/19/24 Status: Ordered Medication Dispense Status: Completed Quantity: 90.0 Unit: tab(s) Total Allowed Fills: 2 Fills Dispensed: 0 Glucose (1 source) Start: 03-13-2023 glucose 50% intravenous solution Dose : 12.5 gram(s) = 25 mL, IV Push, AsDirected, PRN Hypoglycemia, 0 Refill(s) Start Date: 03/13/23 Status: Ordered ibuprofen 200 mg oral tablet (4 sources) Nonsteroidal Anti-inflammatory Drug Start: 11-15-2023 ibuprofen 200 mg oral tablet Dose : 400 mg = 2 tab(s), Oral, q6hr, PRN pain or fever, 0 Refill(s) Start Date: 11/15/23 Status: Ordered 3 ml insulin aspart protamine, human 70 unt/ml / insulin aspart, human 30 unt/ml pen injector (4 sources) Insulin Analog Start: 02-21-2023 inject 1 dose by subcutaneous injection twice daily NovoLOG Mix 70/30 FlexPen 3 mL Pen Dose : 14 unit(s) =, Subcutaneous, BID, sliding scale up to 14 units BID IF BGT Start Date: 02/21/23 Status: Ordered Start: 04-04-2022 inject 1 dose by sub cutaneous injection twice daily NovoLOG Mix 70/30 FlexPen 3 mL Pen Dose : 14 unit(s) =, Subcutaneous, BID, sliding scale up to 14 units BID IF BGT Start Date: 04/04/22 Status: Ordered 3 ml insulin aspart, human 100 unt/ml pen injector (1 source) Insulin Analog Start: 05-16-2021 End: 11-12-2021 NovoLOG FlexPen 100 units/mL injectable solution Dose : 13 unit(s) =, Subcutaneous, TIDAC, For blood sugar 150-200 take 4 units For blood sugar 201-250 take 6 units For blood sugar 251-300 take 7 units For blood sugar 301-350 take 9 units For blood sugar 351-400 take 11 units For blood sugars 4... Start Date: 05/16/21 Stop Date: 11/12/21 Status: Ordered 3 ml insulin detemir 100 unt/ml pen injector (3 sources) Insulin Analog Start: 05-18-2021 End: 11-14-2021 inject 1 dose by subcutaneous injection once daily at bedtime Levemir FlexTouch 100 units/mL 3 mL Pen Dose : 14 unit(s) =, Subcutaneous, qHS, # 10 mL, 1 Refill(s), Pharmacy: [id number] 159, cm, 05/10/21 8:01:00 EST, Height, kg, 05/10/21 8:01:00 EST, Dosing Weight Start Date: 05/18/21 Stop Date: 11/14/21 Status: Ordered Start: 11-02-2020 End: 05-01-2021 inject 1 dose by subcutaneous injection once daily at bedtime Levemir FlexTouch 100 units/mL 3 mL Pen Dose : 14 unit(s) =, Subcutaneous, qHS, # 10 mL, 1 Refill(s), Pharmacy: [facility] [address] 160, cm, 07/23/20 14:26:00 EDT, Height, kg, 07/23/20 14:26:00 EDT, Dosing Weight Start Date: 11/02/20 Stop Date: 05/01/21 Status: Ordered Insulin Glargine (Lantus) 100 UNIT/ML solution (2 sources) Start: 03-19-2017 inject 14 [IU] by subcutaneous injection twice daily Insulin Glargine (Lantus) 100 UNIT/ML solution Active 14 UNIT SQ TWICE A DAY March 19, 2017 3:21pm Start: 03-19-2017 inject 14 [IU] by jackson bcutaneous injection twice daily Insulin Glargine (Lantus) 100 UNIT/ML solution Active 14 UNIT SQ TWICE A DAY March 19, 2017 1:00am 3 ml insulin lispro 100 unt/ml pen injector (2 sources) Insulin Analog Start: 03-14-2023 End: 04-13-2023 inject 1 dose by subcutaneous injection at mealtime HumaLOG KwikPen 100 units/mL injectable PEN Dose : 5 unit(s) =, Subcutaneous, TIDM, Hold if you eat less than 50% of your meal, # 15 mL, 0 Refill(s), [facility]: [id number], Diabetes, 162.6, cm, 03/10/23 17:55:00 EST, Height, kg, 03/10/23 17:55:00 EST, Dosing Weight Start Date: 03/14/23 Stop Date: 04/13/23 Status: Ordered melatonin 3 mg oral tablet (1 source) Start: 03-13-2023 melatonin 3 mg oral tablet Dose : 3 mg = 1 tab(s), Oral, qHS, PRN Sleep, 0 Refill(s) Start Date: 03/13/23 Status: Ordered meloxicam 7.5 mg oral tablet (1 source) Nonsteroidal Anti-inflammatory Drug Start: 01-09-2024 End: 04-08-2024 meloxicam 7.5 mg oral tablet Dose : 7.5 mg = 1 tab(s), Oral, qDay, Take with food/milk, # 90 tab(s), 0 Refill(s), Pharmacy: [facility], 158.3, cm, 01/09/24 10:04:00 EDT, Height, kg, 01/09/24 10:04:00 EDT, Dosing Weight Start Date: 01/09/24 Stop Date: 04/08/24 Status: Ordered methocarbamol 500 mg oral tablet (2 sources) Muscle Relaxant Start: 03-19-2017 take 500 mg by mouth every six hours as needed Methocarbamol Active 500 MG PO EVERY 6 HOURS NEEDED March 19, 2017 3:21pm pantoprazole 40 mg delayed release oral tablet (2 sources) Proton Pump Inhibitor Start: 03-13-2023 End: 04-12-2023 Protonix 40 mg oral enteric coated tablet Dose : 40 mg = 1 tab(s), Oral, qDayAC, # 30 tab(s), 0 Refill(s), Pharmacy: [facility] #[id number], 162.6, cm, 03/10/23 17:55:00 EST, Height, kg, 03/10/23 17:55:00 EST, Dosing Weight Start Date: 03/13/23 Stop Date: 04/12/23 Status: Ordered Pen needles 4 mm (8 sources) Start: 07-29-2024 Pen needles 4 mm See Instructions, qs for 1 month supply, # 1 EA, 11 Refill(s), Pharmacy: [facility], 157.8, cm, 07/29/24 8:38:00 EDT, Height, 66.2, kg, 07/29/24 8:38:00 EDT, Dosing Weight Start Date: 07/29/24 Status: Ordered Medication Dispense Status: Completed Quantity: 1.0 Unit: EA Total Allowed Fills: 12 Fills Dispensed: 0 Start: 04-02-2023 Pen needles 4 mm See Instructions, qs for 1 month supply, # 1 EA, 11 Refill(s), [facility]: [facility][id number], 162.6, cm, 03/14/23 18:13:00 EST, Height, 65.8, kg, 04/02/23 12:36:00 EST, Dosing Weight Start Date: 04/02/23 Status: Ordered polyethylene glycol 3350 14078 mg powder for oral solution (2 sources) Osmotic Laxative Start: 12-26-2023 End: 02-24-2024 take 17 doses by mouth once daily MiraLax oral powder for reconstitution Dose : 17 gram(s) =, Oral, qDay, X 30 day(s), # 510 gram(s), 1 Refill(s), 02/24/24 6:00:00 PM EST, Pharmacy: [facility], Constipation, 162.6, cm, 12/19/23 13:51:00 EDT, Height, kg, 12/19/23 13:51:00 EDT, Dosing Weight Start Date: 12/26/23 Stop Date: 02/24/24 Status: Ordered Start: 04-04-2022 End: 10-01-2022 take 17 doses by mouth twice daily as needed for constipation MiraLax oral powder for reconstitution Dose : 17 gram(s) =, Oral, BID, PRN Constipation, X 30 day(s), # 1,000 gram(s), 5 Refill(s), 10/01/22 10:52:00 EDT, Pharmacy: [facility] #[id number], 159, cm, 04/04/22 10:05:00 EST, Height Start Date: 04/04/22 Stop Date: 10/01/22 Status: Ordered Splint, wrist (1 source) Start: 01-09-2024 Splint, wrist See Instructions, Right, size M, # 1 EA, 0 Refill(s), Right wrist pain, 64.8 Start Date: 01/09/24 Status: Ordered Vitamin C 500 mg oral tablet (1 source) Start: 02-21-2023 Vitamin C 500 mg oral tablet Dose : 500 mg = 1 tab(s), Oral, qDay, # 30 tab(s), 0 Refill(s) Start Date: 02/21/23 Status: Ordered Vitamin D3 125 mcg (5000 intl units) oral capsule (1 source) Start: 02-21-2023 Vitamin D3 125 mcg (5000 intl units) oral capsule Dose : 125 mcg = 1 cap(s), Oral, qDay, # 100 cap(s), 0 Refill(s) Start Date: 02/21/23 Status: Ordered vitamin e 180 mg oral capsule (2 sources) Start: 03-19-2017 take 400 [IU] by mouth twice daily Vitamin E Active 400 UNIT PO TWICE A DAY March 19, 2017 3:21pm vitamin E 400 intl units oral capsule (1 source) Start: 02-21-2023 vitamin E 400 intl units oral capsule Dose : 400 International_Unit = 1 cap(s), Oral, Daily, 0 Refill(s) Start Date: 02/21/23 Status: Ordered Wheel Chair (7 sources) Start: 08-20-2023 Wheel Chair Se e Instructions, Please provide 1 wheel chair, with foot rests and leg rests., # 1 EA, 0 Refill(s), DDD (degenerative disc disease), lumbar CVA (cerebrovascular accident), 64.5 Start Date: 08/20/23 Status: Ordered Medication Dispense Status: Completed Quantity: 1.0 Unit: EA Total Allowed Fills: 1 Fills Dispensed: 0 Indications: Cerebral infarction, unspecified; Other intervertebral disc degeneration, lumbar region; Start: 08-20-2023 Wheel Chair Se e Instructions, Please provide 1 wheel chair, with foot rests and leg rests., # 1 EA, 0 Refill(s), DDD (degenerative disc disease), lumbar CVA (cerebrovascular accident), 64.5 Start Date: 08/20/23 Status: Ordered zinc citrate 50 mg oral capsule (1 source) Start: 02-21-2023 zinc citrate 5 0 mg oral capsule 0 Refill(s) Start Date: 02/21/23 Status: Ordered {20 (nirmatrelvir 150 MG Ora l Tablet) / 10 (ritonavir 100 MG Oral Tablet) } Pack [Paxlovid 5-Day] (1 source) Start: 08-19-2022 End: 08-24-2022 Paxlovid 300 mg-100 mg Dose Pack oral tablet Dose = 1 packet(s), Oral, BID, DO NOT TAKE Atorvastatin while on this medication, restart it 48 hours after finishing this medication; Take 1 Packet = two 150mg nirmatrelvir tabs and one 100mg ritonavir tab. 3 tablets to be taken together by mouth twi... Start Date: 08/19/22 Stop Date: 08/24/22 Status: Ordered Completed/Discontinued Medications Medication Drug Class(es) Dates Sig (Normalized) Sig (Original) aspirin 81 mg chewable tablet (19 sources) Platelet Aggregation Inhibitor, Nonsteroidal Anti-inflammatory Drug Start: 07-29-2024 End: 01-25-2025 aspirin 81 mg oral tablet, chewable Dose : 81 mg = 1 tab(s), Oral, Daily, # 90 tab(s), 1 Refill(s), Pharmacy: [facility], 157.8, cm, 07/29/24 8:38:00 EDT, Height, kg, 07/29/24 8:38:00 EDT, Dosing Weight Start Date: 07/29/24 Stop Date: 01/25/25 Status: Ordered Medication Dispense Status: Completed Quantity: 90.0 Unit: tab(s) Total Allowed Fills: 2 Fills Dispensed: 0 Start: 12-13-2023 End: 06-10-2024 aspirin 81 mg oral tablet, c hewable Dose : 81 mg = 1 tab(s), Oral, Daily, # 90 tab(s), 1 Refill(s), Pharmacy: [facility] [id number], 162.6, cm, 12/12/23 23:59:00 EDT, Height, kg, 12/12/23 23:59:00 EDT, Dosing Weight Start Date: 12/13/23 Stop Date: 06/10/24 Status: Ordered Start: 02-21-2023 End: 11-28-2023 aspirin 81 mg oral tablet, c hewable Dose : 81 mg = 1 tab(s), Oral, Daily, # 90 tab(s), 1 Refill(s), Pharmacy: [facility], 158.5, cm, 05/28/23 13:41:00 EST, Height, kg, 05/28/23 13:41:00 EST, Dosing Weight Start Date: 06/01/23 Stop Date: 11/28/23 Status: Ordered Start: 04-04-2022 End: 10-01-2022 aspirin 81 mg oral tablet, c hewable Dose : 81 mg = 1 tab(s), Oral, Daily, # 90 tab(s), 1 Refill(s), [facility]: [facility] #[id number], 159, cm, 04/04/22 10:05:00 EST, Height, kg, 04/04/22 10:05:00 EST, Dosing Weight Start Date: 04/04/22 Stop Date: 10/01/22 Status: Ordered Start: 05-10-2021 End: 11-06-2021 aspirin 81 mg oral tablet, c hewable Dose : 81 mg = 1 tab(s), Oral, Daily, # 90 tab(s), 1 Refill(s), [facility]: [facility] 159, cm, 05/10/21 8:01:00 EST, Height, kg, 05/10/21 8:01:00 EST, Dosing Weight Start Date: 05/10/21 Stop Date: 11/06/21 Status: Ordered Start: 03-19-2017 End: 11-06-2021 aspirin 81 mg oral tablet, c hewable Dose : 81 mg = 1 tab(s), Oral, Daily, # 90 tab(s), 1 Refill(s), [facility]: [facility] 159, cm, 05/10/21 8:01:00 EST, Height, kg, 05/10/21 8:01:00 EST, Dosing Weight Start Date: 05/10/21 Stop Date: 11/06/21 Status: Ordered 0.1 ml glucagon 5 mg/ml auto-injector (4 sources) Antihypoglycemic Agent Start: 04-04-2022 Gvoke HypoPen One Pack 0.5 mg/0.1 mL subcutaneous solution Dose : 0.5 mg = 0.1 mL, Subcutaneous, AsDirected, PRN for low blood sugar, # 2 EA, 1 Refill(s), [facility]: [facility] #[id number], 159, cm, 04/04/22 10:05:00 EST, Height, kg, 04/04/22 10:05:00 EST, Dosing Weight Start Date: 04/04/22 Status: Ordered 1 ml hydrALAZINE hydrochloride 20 mg/ml injection (1 source) Arteriolar Vasodilator Start: 03-13-2023 inject 0.5 mL intravenously every four hours as needed hydrALAZINE 20 mg/mL injectable solution Dose : 10 mg = 0.5 mL, IV Push, q4h, PRN Blood pressure control, 0 Refill(s) Start Date: 03/13/23 Status: Ordered 3 ml insulin glargine 100 unt/ml pen injector (10 sources) Insulin Analog Start: 07-29-2024 End: 10-27-2024 inject 1 dose by subcutaneous injection twice daily Basaglar KwikPen 100 units/mL subcutaneous solution Dose : 14 unit(s) =, Subcutaneous, BID, morning and night, # 9 mL, 2 Refill(s), [facility], 157.8, cm, 07/29/24 8:38:00 EDT, Height, kg, 07/29/24 8:38:00 EDT, Dosing Weight Start Date: 07/29/24 Stop Date: 10/27/24 Status: Ordered Medication Dispense Status: Completed Quantity: 9.0 Unit: mL Total Allowed Fills: 3 Fills Dispensed: 0 Start: 12-13-2023 End: 01-12-2024 inject 1 dose by subcutaneous injection once daily Basaglar KwikPen 100 units/mL subcutaneous solution Dose : 24 unit(s) =, Subcutaneous, qDay, # 15 mL, 0 Refill(s), [id number], 162.6, cm, 12/12/23 23:59:00 EDT, Height, kg, 12/12/23 23:59:00 EDT, Dosing Weight Start Date: 12/13/23 Stop Date: 01/12/24 Status: Ordered Start: 11-15-2023 Basaglar KwikP en 100 units/mL subcutaneous solution Dose : 24 unit(s) =, 0 Refill(s) Start Date: 11/15/23 Status: Ordered Start: 09-05-2023 End: 03-03-2024 inject 1 dose by subcutaneous injection once daily Basaglar 100 unit(s)/mL 3 mL KwikPen Dose : 25 unit(s) =, Subcutaneous, qDay, discontinue lantus, Basaglar is insurance preferred., # 15 mL, 1 Refill(s), other reason (Rx), Diabetes mellitus with microalbuminuria Diabetic peripheral vascular disease Start Date: 09/05/23 Stop Date: 03/03/24 Status: Ordered Start: 06-01-2023 End: 11-28-2023 inject 1 dose by subcutaneous injection once daily Basaglar 100 unit(s)/mL 3 mL KwikPen Dose : 20 unit(s) =, Subcutaneous, qDay, discontinue lantus, Basaglar is insurance preferred., # 45 mL, 1 Refill(s), Pharmacy: [facility], Diabetes mellitus with microalbuminuria Diabetic peripheral vascular disease, 158.5, cm, 05/28/23 13:41:00 EST, Height, kg, 05/28/23 13:41:00 EST, Dosing Weight Start Date: 06/01/23 Stop Date: 11/28/23 Status: Ordered Start: 03-14-2023 inject 1 dose by sub cutaneous injection once daily at bedtime Lantus Solostar Pen 100 units/mL 3 mL Pen Dose : 15 unit(s) =, Subcutaneous, qHS, # 3 mL, 0 Refill(s), Pharmacy: [facility] #[id number], Diabetes, 162.6, cm, 03/10/23 17:55:00 EST, Height, kg, 03/10/23 17:55:00 EST, Dosing Weight Start Date: 03/14/23 Status: Ordered lisinopril 40 mg oral tablet (18 sources) Angiotensin Converting Enzyme Inhibitor Start: 07-29-2024 End: 01-25-2025 lisinopril 40 mg oral tablet Dose : 40 mg = 1 tab(s), Oral, qDay, take 1 tablet by mouth once daily, # 90 tab(s), 1 Refill(s), Pharmacy: [facility], 157.8, cm, 07/29/24 8:38:00 EDT, Height, kg, 07/29/24 8:38:00 EDT, Dosing Weight Start Date: 07/29/24 Stop Date: 01/25/25 Status: Ordered Medication Dispense Status: Completed Quantity: 90.0 Unit: tab(s) Total Allowed Fills: 2 Fills Dispensed: 0 Start: 12-13-2023 End: 06-10-2024 lisinopril 40 mg oral tablet Dose : 40 mg = 1 tab(s), Oral, qDay, take 1 tablet by mouth once daily, # 90 tab(s), 1 Refill(s), Pharmacy: [facility] [id number], 162.6, cm, 12/12/23 23:59:00 EDT, Height, kg, 12/12/23 23:59:00 EDT, Dosing Weight Start Date: 12/13/23 Stop Date: 06/10/24 Status: Ordered Start: 06-01-2023 End: 11-28-2023 lisinopril 40 mg oral tablet Dose : 40 mg = 1 tab(s), Oral, qDay, take 1 tablet by mouth once daily, # 90 tab(s), 1 Refill(s), Pharmacy: [facility], 158.5, cm, 05/28/23 13:41:00 EST, Height, kg, 05/28/23 13:41:00 EST, Dosing Weight Start Date: 06/01/23 Stop Date: 11/28/23 Status: Ordered Start: 03-14-2023 End: 04-13-2023 lisinopril 5 mg oral tablet Dose : 5 mg = 1 tab(s), Oral, qDay, # 30 tab(s), 0 Refill(s), [facility]: [facility] #[id number], 162.6, cm, 03/10/23 17:55:00 EST, Height, kg, 03/10/23 17:55:00 EST, Dosing Weight Start Date: 03/14/23 Stop Date: 04/13/23 Status: Ordered Start: 04-04-2022 End: 10-01-2022 lisinopril 40 mg oral tablet Dose : 40 mg = 1 tab(s), Oral, qDay, # 90 tab(s), 1 Refill(s), [facility]: [facility] #[id number], 159, cm, 04/04/22 10:05:00 EST, Height, kg, 04/04/22 10:05:00 EST, Dosing Weight Start Date: 04/04/22 Stop Date: 10/01/22 Status: Ordered Start: 03-19-2017 End: 11-06-2021 lisinopril 40 mg oral tablet Dose : 40 mg = 1 tab(s), Oral, qDay, # 90 tab(s), 1 Refill(s), [facility]: [facility] 159, cm, 05/10/21 8:01:00 EST, Height, kg, 05/10/21 8:01:00 EST, Dosing Weight Start Date: 05/10/21 Stop Date: 11/06/21 Status: Ordered NIFEdipine (4 sources) Dihydropyridine Calcium Channel Tbaby Start: 03-29-2023 End: 03-29-2023 NIFEdipine Start: 03/29/23 9:00:00 AM EST, Dose = 30 mg, = 1 tab(s), Oral, 0, 03/14/23 19:57:00 EST Start Date: 03/29/23 Stop Date: 03/29/23 Status: Completed Start: 03-14-2023 End: 04-13-2023 NIFEdipine 30 mg oral tablet , extended release Dose : 30 mg = 1 tab(s), Oral, qDay, please discontinue prescription for nifedipine 60. Decreased to 30 to allow for CANDI in addition given diabetes, # 30 tab(s), 0 Refill(s), [facility]: [facility] #[id number], 162.6, cm, 03/10/23 17:55:00 EST, Height, kg, 03/10/23 17:55:00 EST, Dosing Weight Start Date: 03/14/23 Stop Date: 04/13/23 Status: Ordered Start: 03-14-2023 End: 03-14-2023 NIFEdipine Start: 03/14/23 9 :00:00 AM EST, Dose = 60 mg, = 2 tab(s), Oral, 0, 03/12/23 7:16:00 EST Start Date: 03/14/23 Stop Date: 03/14/23 Status: Completed NovoLOG FlexPen 100 units/mL injectable solution (2 sources) Start: 10-05-2020 End: 04-03-2021 NovoLOG FlexPen 100 units/mL injectable solution Dose : 13 unit(s) =, Subcutaneous, TIDAC, For blood sugar 150-200 take 4 units For blood sugar 201-250 take 6 units For blood sugar 251-300 take 7 units For blood sugar 301-350 take 9 units For blood sugar 351-400 take 11 units For blood sugars 4... Start Date: 10/05/20 Stop Date: 04/03/21 Status: Ordered Problems Problem Classification Problem Date Documented Da te Episodic/Chronic Acquired foot deformities (17 sources) Foot-drop 05-13-2019 Episodic Acute cerebrovascular disease (15 sources) Cerebrovascular accident; Translations: [Ischemic stroke] Onset: 3 05-10-2021 Chronic Chronic kidney disease (20 sources) Chronic kidney disease stage 3; Translations: [Chronic kidney disease stage 3A ] 08-19-2022 Chronic Congestive heart failure; nonhypertensive (1 source) Chronic diastolic heart failure 07-29-2024 Chronic Coronary atherosclerosis and other heart disease (17 sources) Coronary atherosclerosis 12-10-2018 Chronic Diabetes mellitus with complications (20 sources) Neuropathy due to diabetes mellitus; Translations: [Type II diabetes mellitus uncontrolled] Onset: 3 12-10-2018 Chronic Diabetes mellitus without complication (20 sources) Diabetes mellitus; Translations: [Type 2 diabetes mellitus] 08-19-2022 Chronic Diabetes mellitus without complication (1 source) Hyperglycemia; Translations: [Hyperglycemia, unspecified] Onset: 3 Episodic Disorders of lipid metabolism (19 sources) Hypercholesterolemia; Translations: [Hyperlipidemia] 12-10-2018 Chronic Diverticulosis and diverticulitis (17 sources) Diverticula of intestine; Translations: [Diverticular disease] 12-10-2018 Chronic E Codes: Fall (3 sources) Fall; Translations: [Unspecified fall, initial encounter] 10-05-2021 Episodic E Codes: Fall (7 sources) Fall 09-05-2023 Esophageal disorders (17 sources) Gastroesophageal reflux disease 12-10-2018 Chronic Essential hypertension (20 sources) Benign essential hypertension; Translations: [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 disorder] Onset: 4 04-15-2019 Chronic Fluid and electrolyte disorders (1 source) Dehydration; Translations: [Dehydration] Onset: 3 Episodic Fracture of lower limb (5 sources) Fracture of foot ; Translations: [Closed fracture of lower leg] Onset: 4 12-31-2019 Episodic Genitourinary symptoms and ill-defined conditions (18 sources) Microalbuminuria; Translations: [Genitourinary tract problem] Onset: 4 12-31-2019 Episodic Headache; including migraine (3 sources) Headache; Translations: [Headache, unspecified] Onset: 4 Episodic Heart valve disorders (2 sources) Aortic valve stenosis; Translations: [Mitral valve regurgitation] 07-29-2024 Chronic Hypertension with complications and secondary hypertension (20 sources) 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 heart disease without congestive heart failure; Translations: [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 renal disease] 08-19-2022 Chronic Lymphadenitis (17 sources) Cervical lymphadenopathy 04-15-2019 Episodic Malaise and fatigue (20 sources) Asthenia; Translations: [Weakness] Onset: 3 03-15-2023 Episodic Mood disorders (15 sources) Depressive disorder; 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] 12-10-2018 Chronic Occlusion or stenosis of precerebral arteries (17 sources) Carotid artery stenosis 05-10-2021 Chronic Open wounds of head; neck; and trunk (1 source) Laceration of head; Translations: [Laceration without foreign body of unspecified part of head, initial encounter] Onset: 3 Episodic Osteoarthritis (17 sources) Osteoarthritis 07-01-2019 Chronic Other aftercare (3 sources) Post-discharge follow-up 05-10-2021 Episodic Other aftercare (12 sources) Surgical follow-up 01-01-2023 Episodic Other aftercare (1 source) Other care home (current) drug therapy; Translations: [Other care home (current) drug therapy] Onset: 5 Episodic Other aftercare (1 source) Encounter for therapeutic drug level monitoring; Translations: [Encounter for therapeutic drug level monitoring] Onset: 5 Episodic Other and ill-defined heart disease (14 sources) Left ventricular hypertrophy 08-19-2022 Chronic Other bone disease and musculoskeletal deformities (17 sources) Cervical somatic dysfunction 07-01-2019 Episodic Other bone disease and musculoskeletal deformities (17 sources) Somatic dysfunction of lumbar region 07-01-2019 Episodic Other bone disease and musculoskeletal deformities (17 sources) Somatic dysfunction of pelvic region 12-10-2018 Episodic Other bone disease and musculoskeletal deformities (17 sources) Somatic dysfunction of rib 07-01-2019 Episodic Other bone disease and musculoskeletal deformities (17 sources) Somatic dysfunction of sacral region 07-01-2019 Episodic Other bone disease and musculoskeletal deformities (17 sources) Somatic dysfunction of thoracic region 07-01-2019 Episodic Other circulatory disease (17 sources) Feeling of lump in throat 04-15-2019 Episodic Other circulatory disease (14 sources) History of cerebrovascular accident 04-04-2022 Episodic Other circulatory disease (1 source) History of cerebrovascular accident without residual deficits 07-29-2024 Episodic Other connective tissue disease (17 sources) Cramp in lower leg 12-10-2018 Episodic Other connective tissue disease (17 sources) Weakness of face muscles 05-10-2021 Episodic Other connective tissue disease (12 sources) Recurrent falls 01-17-2023 Episodic Other fractures (15 sources) Fracture of sacrum 06-21-2021 Episodic Other gastrointestinal disorders (3 sources) History of diverticulitis 12-10-2018 Episodic Other gastrointestinal disorders (14 sources) Constipation 04-04-2022 Episodic Other inflammatory condition of skin (17 sources) Rosacea 12-24-2018 Chronic Other injuries and conditions due to external causes (1 source) Concussion injury of body structure 06-21-2021 Episodic Other injuries and conditions due to external causes (2 sources) Hematoma; Translations: [Other injury of unspecified body region, initial encounter] 10-05-2021 Episodic Other injuries and conditions due to external causes (2 sources) Closed injury of head; Translations: [Unspecified injury of head, initial encounter] 10-05-2021 Episodic Other injuries and conditions due to external causes (1 source) Injury of head; Translations: [Unspecified injury of head, initial encounter] Episodic Other injuries and conditions due to external causes (14 sources) At risk for falls 07-19-2021 Episodic Other nervous system disorders (17 sources) Peripheral nerve disease 07-01-2019 Chronic Other nervous system disorders (17 sources) Dysarthria 05-10-2021 Episodic Other nervous system disorders (1 source) Ataxia; Translations: [Ataxia, unspecified] Episodic Other nervous system disorders (1 source) Incoordination; Translations: [Other lack of coordination] Episodic Other nervous system disorders (1 source) Impaired cognition; Translations: [Other symptoms and signs involving cognitive functions and awareness] Onset: Episodic Other non-traumatic joint disorders (12 sources) Knee pain 01-01-2023 Episodic Other non-traumatic joint disorders (1 source) Pain of left shoulder joint; Translations: [Pain in left shoulder] Onset: 4 Episodic Other nutritional; endocrine; and metabolic disorders (17 sources) Overweight 12-10-2018 Episodic Other nutritional; endocrine; and metabolic disorders (14 sources) Overweight in adulthood with body mass index of 25 or more but less than 30 08-19-2022 Episodic Other screening for suspected conditions (not mental disorders or infectious disease) (17 sources) Raised TSH level; Translations: [Viral screening status] 04-15-2019 Episodic Other skin disorders (17 sources) Vitiligo 12-10-2018 Episodic Other upper respiratory disease (17 sources) Change in voice 04-15-2019 Episodic Otitis media and related conditions (13 sources) Dysfunction of eustachian tube 09-01-2022 Episodic Paralysis (12 sources) 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 Peripheral and visceral atherosclerosis (20 sources) Atherosclerosis of aorta; Translations: [Peripheral vascular disease] 08-19-2022 Chronic Residual codes; unclassified (17 sources) Swelling - edema - symptom 12-10-2018 Episodic Retinal detachments; defects; vascular occlusion; and retinopathy (1 source) Retinal ischemia; 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] Onset: Chronic Screening and history of mental health and substance abuse codes (14 sources) Tobacco use and exposure - finding 08-19-2022 Chronic Spondylosis; intervertebral disc disorders; other back problems (14 sources) Degeneration of lumbar intervertebral disc 07-19-2021 Chronic Spondylosis; intervertebral disc disorders; other back problems (20 sources) Brachial neuritis; Translations: [Low back pain] Onset: 3 12-10-2018 Episodic Syncope (18 sources) Syncope; Translations: [Syncope and collapse] Onset: 4 05-10-2021 Episodic Thyroid disorders (17 sources) Thyroid nodule 04-25-2019 Chronic Unclassified (17 sources) Long-term current use of insulin 12-31-2019 Unclassified (20 sources) Patient encounter status 04-04-2022 Unclassified (13 sources) Otalgia of right ear 09-01-2022 Urinary tract infections (1 source) Urinary tract infectious disease; Translations: [Urinary tract infection, site not specified] Episodic Viral infection (14 sources) Disease caused by 2019-nCoV 08-19-2022 Results Test Name Value Interpretation Reference Range Facility MRI SPINE CERVICAL W/O CONTR [place] 02-12-2025 MRI SPINE CERVICAL W/O CONTRAST ORIGINAL EXAMINATION: MRI OF THE CERVICAL SPINE WITHOUT [id number]/29/2025 TECHNIQUE: Sagittal T1, T2, STIR, axial T2-weighted images of the cervical spine were obtained without contrast. COMPARISON: CT 12/27/2022 HISTORY: ORDERING SYSTEM PROVIDED HISTORY: Reason for Exam: Cervical radiculopathy, chronic FINDINGS: Vertebral body heights are maintained. Vertebral marrow signal is within normal limits there is grade 1 anterolisthesis of C7 on T1. The visualized portions of the spinal cord demonstrate normal signal intensity. Visualized inferior brain and paraspinal soft tissues are within normal limits for technique. C2-C3: Moderate spondylosis with mild ligamentum flavum and uncovertebral hypertrophy leading to mild canal stenosis. The neural foramina appear grossly patent C3-C4: Moderate spondylosis, with possible central and rightward disc herniation, with ligamentum flavum and uncovertebral hypertrophy leading to mild canal stenosis. The neural foramina are grossly patent. C4-C5: Mild intervertebral disc space height loss and mild facet hypertrophy. No significant canal or neural foraminal stenosis. C5-C6: Mild spondylosis with superimposed mild central extrusion and moderate right and mild left uncovertebral hypertrophy leading to mild canal stenosis and left neural foraminal narrowing. C6-C7: Mild spondylosis with mild uncovertebral hypertrophy. There is mild stenosis. C7-T1: There is a mild posterior disc bulge. IMPRESSION: Multilevel degenerative changes, with mild stenosis at multiple levels. There is various neural foraminal narrowing. I have personally reviewed the images of this examination and agree with the resident's findings and interpretation. Interpreted by: Adeline Arnold MD Preliminary Report By: Nikole Richardson Electronically signed By Adeline Arnold MD Dictated Date: 02/11/2025 3:24:22 PM Prelim Date: 02/12/2025 8:08:26 AM Sign Date: 02/12/2025 8:08:26 AM Ordering Provider: DAVION VARGAS RP Normal [facility] CBC W/Diff, Automatedon --2024 Absolute Lymph 1.37 X10 3/uL Normal 0.83-4.51 [facility] Comment on above: Performed By: #### L 100.0100, L101.9900, L501.6710 #### [facility] [address] [place], [address] Absolute Neut 6.4 X10 3/uL Normal 2.0-7.7 [facility] Comment on above: Performed By: #### L 100.0100, L101.9900, L501.6710 #### [facility] [address] [place], [address] Basophils/100 WBC (Bld) 0.7 % Normal 0-1 [facility] Comment on above: Performed By: #### L 100.0100, L101.9900, L501.6710 #### [facility] [address] [place], [address] Eosinophils/100 WBC (Bld) 1.3 % Normal 0-5 [facility] Comment on above: Performed By: #### L 100.0100, L101.9900, L501.6710 #### [facility] [address] [place], [address] Erythrocyte distribution width (RBC) [Ratio] 13.2 % Normal 11.6-14.6 [facility] Comment on above: Performed By: #### L 100.0100, L101.9900, L501.6710 #### [facility] [address] [place], [address] Hematocrit (Bld) [Volume fraction] 40.5 % Normal 37-47 [facility] Comment on above: Performed By: #### L 100.0100, L101.9900, L501.6710 #### [facility] [address] [place], [address] Hemoglobin (Bld) [Mass/Vol] 13.5 g/dL Normal 12.0-15.0 [facility] Comment on above: Performed By: #### L 100.0100, L101.9900, L501.6710 #### [facility] [address] [place] [place], [address] IG% 0.500 Normal 0.0-0.9 [facility] Comment on above: Result Comment: IG% - Immature Granulocytes (promyelocytes, myelocytes and metamyelocytes) > 1% indicates that a LEFT SHIFT is Present. Performed By: #### L 100.0100, L101.9900, L501.6710 #### [facility] [address] [place], [address] Lymphocytes/100 WBC (Bld) 16.1 % Low 19-41 [facility] Comment on above: Performed By: #### L 100.0100, L101.9900, L501.6710 #### [facility] [address] [place], [address] MCH (RBC) [Entitic mass] 30.5 pg Normal 27.0-32.0 [facility] Comment on above: Performed By: #### L 100.0100, L101.9900, L501.6710 #### [facility] [address] [place], [address] MCHC (RBC) [Mass/Vol] 33.3 g/dL Normal 32-36 [facility] Comment on above: Performed By: #### L 100.0100, L101.9900, L501.6710 #### [facility] [address] [place], [address] MCV (RBC) [Entitic vol] 91.4 fL Normal 81-99 [facility] Comment on above: Performed By: #### L 100.0100, L101.9900, L501.6710 #### [facility] [address] [place], [address] Monocytes/100 WBC (Bld) 6.3 % Normal 0-10 [facility] Comment on above: Performed By: #### L 100.0100, L101.9900, L501.6710 #### [facility] [address] [place], [address] Neutrophils/100 WBC (Bld) 75.1 % High 47-70 [facility] Comment on above: Performed By: #### L 100.0100, L101.9900, L501.6710 #### [facility] [address] [place], [address] Nucleated RBC (Bld) [#/Vol] 0 10*3/uL Normal 0-5 [facility] Comment on above: Performed By: #### L 100.0100, L101.9900, L501.6710 #### [facility] [address] [place], [address] Platelet mean volume (Bld) [Entitic vol] 11.3 fL Normal 6.2-12.0 [facility] Comment on above: Performed By: #### L 100.0100, L101.9900, L501.6710 #### [facility] [address] [place], [address] Platelets (Bld) [#/Vol] 266 10*3/uL Normal 150-450 [facility] Comment on above: Performed By: #### L 100.0100, L101.9900, L501.6710 #### [facility] [address] [place], [address] RBC (Bld) [#/Vol] 4.43 10*6/uL Normal 4.2-5.4 [facility] Comment on above: Performed By: #### L 100.0100, L101.9900, L501.6710 #### [facility] [address] [place], [address] RDW SD 44.0 fl High 35.1-43.9 [facility] Comment on above: Performed By: #### L 100.0100, L101.9900, L501.6710 #### [facility] [address] [place], [address] WBC (Bld) [#/Vol] 8.5 10*3/uL Normal 4.4-11.0 [facility] Comment on above: Performed By: #### L 100.0100, L101.9900, L501.6710 #### [facility] [address] [place], [address] CRPon 05-26-2024 C-REACTIVE PROT < 2.90 Normal 0.0-3.0 [facility] Comment on above: Result Comment: C-Re active Protein (CRP) provides useful information for the diagnosis, therapy and monitoring of inflammatory processes and associated diseases. For the evaluation of Relative Risk for Cardiovascular Disease, a High Sensitivity CRP (HSCRP) should be ordered. Performed By: #### L 100.0100, L101.9900, L501.6710 #### [facility] [address] [place], [address] Carotid Duplex Ultrasoundon 05-26-2024 Carotid Duplex Ultrasound [facility] [address] [place] [address] Carotid Duplex Ultrasound 05/26/24919 MR#: [id number] Acct: [id number] Name: ALEXUS MOYER Rep #: [id number] : 1935 88 From: Venkat Montano MD Attending Dr: Dr. Perico Maddox MD Status: REG CLI Ordering Dr: Perico Maddox MD Date: 05/26/24 Location: CVS Sex: F C Admitted: Reason For Study Reason For Study: Retinal Ischemia Rt. Velocities/BP Lt. Velocities/BP Prox CCA 85/10 cm/sec. Prox CCA 68/11 cm/sec. Mid CCA 91/15 cm/sec. Mid CCA 73/12 cm/sec. Dist CCA 69/11 cm/sec. Dist CCA 73/14 cm/sec. Prox ICA 70/16 cm/sec. Prox ICA 150/32 cm/sec. Mid ICA 96/24 cm/sec. Mid ICA 100/25 cm/sec. Dist ICA 93/20 cm/sec. Dist ICA 108/26 cm/sec. Rt. ICA/CCA = 1.1. Lt. ICA/CCA = 2.1. Prox ECA 83/0 cm/sec. Prox ECA 118/0 cm/sec. Rt. Vert. 0 cm/sec. Lt. Vert. 68/13 cm/sec. Right Extracranial There is heterogeneous, irregular atherosclerotic plaque noted in the right common carotid artery. There is heterogeneous, irregular atherosclerotic plaque noted in the right internal carotid artery. The atherosclerotic plaque causes acoustic shadowing. There is heterogeneous, irregular atherosclerotic plaque noted in the right external carotid artery. Flow could not be demonstrated in the right vertebral artery. Left Extracranial There is heterogeneous, irregular atherosclerotic plaque noted in the left common carotid artery. There is heterogeneous, irregular atherosclerotic plaque noted in the left internal carotid artery. The atherosclerotic plaque causes acoustic shadowing. There is heterogeneous, irregular atherosclerotic plaque noted in the left external carotid artery. Antegrade flow is noted in the left vertebral artery. Procedure Carotid Duplex 24710. This is a Carotid Duplex examination using B-mode, color flow and specral Doppler. Exam performed in department. VL/Carotid Duplex Ultrasound Interpretation Summary Mild (<50%) stenosis right extracranial internal carotid. Moderate (50-69%) stenosis left extracranial internal carotid. The right vertebral artery has no flow visualized. The Left vertebral is patent and antegrade. Limited due to calcific shadowing, alternative imaging may be beneficial. Ordering Physician: Perico Maddox Referring Physician: Medardo Garcia Performed By: Mohit Lancaster, KRISH, RVT 05/27/24 155 Date Venkat Montano MD CC: Dr. Medardo Garcia, DO; Dr. Perico Maddox MD Date Dictated: 05/26/24919 Date Transcribed: 05/27/241551 Manager Games: Signed Normal [facility] Erythrocyte Sed Rateon 05-26 SED RATE 9 mm/hr Normal 0-30 [facility] Comment on above: Performed By: #### L 100.0100, L101.9900, L501.6710 #### [facility] [address] [place], [place], [id number] .Auto Diffon 12-13-2023 Basophil, Absolute 0.0 10 3/mcL Normal 0.0-0.2 [facility] ([place]) Comment on above: Performed By: #### M DW, TROPHS, ANEU, GFR, CBC, ADIFF, BMP #### [address] [address] Basophils/100 WBC (Bld) 0.4 % Normal 0.0-2.5 [facility] ([place]) Comment on above: Performed By: #### M DW, TROPHS, ANEU, GFR, CBC, ADIFF, BMP #### [address] [address] Eosinophil, Absolute 0.0 10 3/mcL Normal 0.0-0.4 [facility] ([place]) Comment on above: Performed By: #### M DW, TROPHS, ANEU, GFR, CBC, ADIFF, BMP #### [address] [address] Eosinophils/100 WBC (Bld) 0.4 % Normal 0.0-7.0 [facility] ([place]) Comment on above: Performed By: #### M DW, TROPHS, ANEU, GFR, CBC, ADIFF, BMP #### [address] [address] Lymphocyte, Absolute 1.7 10 3/mcL Normal 0.8-3.9 [facility] ([place]) Comment on above: Performed By: #### M DW, TROPHS, ANEU, GFR, CBC, ADIFF, BMP #### [address] [address] Lymphocytes/100 WBC (Bld) 18.9 % Normal 10.0-50.0 [facility] ([place]) Comment on above: Performed By: #### M DW, TROPHS, ANEU, GFR, CBC, ADIFF, BMP #### [address] [address] Monocyte, Absolute 0.7 10 3/mcL Normal 0.2-1.0 [facility] ([place]) Comment on above: Performed By: #### M DW, TROPHS, ANEU, GFR, CBC, ADIFF, BMP #### [address] [address] Monocytes/100 WBC (Bld) 7.8 % Normal 1.7-13.0 [facility] ([place]) Comment on above: Performed By: #### M DW, TROPHS, ANEU, GFR, CBC, ADIFF, BMP #### [address] [address] Neutrophils/100 WBC (Bld) 72.5 % Normal 37.0-80.0 [facility] ([place]) Comment on above: Performed By: #### M DW, TROPHS, ANEU, GFR, CBC, ADIFF, BMP #### [address] [address] .GFRon 12-13-2023 GFR 87 ml/min/1.73sqm Normal [facility] ([place]) Comment on above: Result Comment: GFR Population mean for , Non- Americans Ages 20-29 = 116 mL/min/1.73 sq.m. Ages 30-39 = 107 mL/min/1.73 sq.m. Ages 40-49 = 99 mL/min/1.73 sq.m. Ages 50-59 = 93 mL/min/1.73 sq.m. Ages 60-69 = 85 mL/min/1.73 sq.m. Ages 70+ = 75 mL/min/1.73 sq.m. Chronic Kidney Disease: Less than 60 mL/min/1.73 square meters End Stage Renal Disease: Less than 15 mL/min/1.73 square meters Performed By: #### M DW, TROPHS, ANEU, GFR, CBC, ADIFF, BMP #### [address] [address] GFR Non- 72 ml/min/1.73sqm Normal [facility] ([place]) Comment on above: Result Comment: GFR Population mean for , Non- Americans Ages 20-29 = 116 mL/min/1.73 sq.m. Ages 30-39 = 107 mL/min/1.73 sq.m. Ages 40-49 = 99 mL/min/1.73 sq.m. Ages 50-59 = 93 mL/min/1.73 sq.m. Ages 60-69 = 85 mL/min/1.73 sq.m. Ages 70+ = 75 mL/min/1.73 sq.m. Chronic Kidney Disease: Less than 60 mL/min/1.73 square meters End Stage Renal Disease: Less than 15 mL/min/1.73 square meters Performed By: #### M DW, TROPHS, ANEU, GFR, CBC, ADIFF, BMP #### [address] [address] .NEUABSon 12-13-2023 Neutrophil, Absolute 6.6 10 3/mcL High 2.9-6.2 [facility] ([place]) Comment on above: Performed By: #### M DW, TROPHS, ANEU, GFR, CBC, ADIFF, BMP #### [address] [address] BMPon 12-13-2023 BUN/Creatinine Ratio 17 ratio Normal 7-27 [facility] ([place]) Comment on above: Performed By: #### M DW, TROPHS, ANEU, GFR, CBC, ADIFF, BMP #### [address] [address] Calcium [Mass/Vol] 8.4 mg/dL Normal 8.4-10.2 [facility] ([place]) Comment on above: Performed By: #### M DW, TROPHS, ANEU, GFR, CBC, ADIFF, BMP #### [address] [address] Chloride [Moles/Vol] 104 mmol/L Normal 98-107 [facility] ([place]) Comment on above: Performed By: #### M DW, TROPHS, ANEU, GFR, CBC, ADIFF, BMP #### [address] [address] CO2 [Moles/Vol] 26 mmol/L Normal 23-31 [facility] ([place]) Comment on above: Performed By: #### M DW, TROPHS, ANEU, GFR, CBC, ADIFF, BMP #### [address] [address] Creatinine [Mass/Vol] 0.76 mg/dL Normal 0.55-1.02 [facility] ([place]) Comment on above: Performed By: #### M DW, TROPHS, ANEU, GFR, CBC, ADIFF, BMP #### [address] [address] Electrolyte Balance 5.0 mEq/L Normal 4.0-15.0 [facility] ([place]) Comment on above: Performed By: #### M DW, TROPHS, ANEU, GFR, CBC, ADIFF, BMP #### [address] [address] Glucose [Mass/Vol] 142 mg/dL High 83-110 [facility] ([place]) Comment on above: Performed By: #### M DW, TROPHS, ANEU, GFR, CBC, ADIFF, BMP #### [address] [address] Potassium [Moles/Vol] 3.6 mmol/L Normal 3.5-5.1 [facility] ([place]) Comment on above: Performed By: #### M DW, TROPHS, ANEU, GFR, CBC, ADIFF, BMP #### [address] [address] Sodium [Moles/Vol] 135 mmol/L Low 136-145 [facility] ([place]) Comment on above: Performed By: #### M DW, TROPHS, ANEU, GFR, CBC, ADIFF, BMP #### [address] [address] Urea nitrogen [Mass/Vol] 13 mg/dL Normal 7-18 [facility] ([place]) Comment on above: Performed By: #### M DW, TROPHS, ANEU, GFR, CBC, ADIFF, BMP #### [address] [address] CBCon 12-13-2023 Erythrocyte distribution width (RBC) [Ratio] 14.1 % Normal 11.5-14.5 [facility] ([place]) Comment on above: Performed By: #### M DW, TROPHS, ANEU, GFR, CBC, ADIFF, BMP #### [address] [address] Hematocrit (Bld) [Volume fraction] 32.3 % Low 37.0-47.0 [facility] ([place]) Comment on above: Performed By: #### M DW, TROPHS, ANEU, GFR, CBC, ADIFF, BMP #### [address] [address] Hgb 11.0 G/dL Low 12.0-16.0 [facility] ([place]) Comment on above: Performed By: #### M DW, TROPHS, ANEU, GFR, CBC, ADIFF, BMP #### [address] [address] MCH (RBC) [Entitic mass] 31.3 pg High 27.0-31.2 [facility] ([place]) Comment on above: Performed By: #### M DW, TROPHS, ANEU, GFR, CBC, ADIFF, BMP #### [address] [address] MCHC 34.1 G/dL Normal 33.0-37.0 [facility] ([place]) Comment on above: Performed By: #### M DW, TROPHS, ANEU, GFR, CBC, ADIFF, BMP #### [address] [address] MCV (RBC) [Entitic vol] 91.6 fL Normal 80.0-94.0 [facility] ([place]) Comment on above: Performed By: #### M DW, TROPHS, ANEU, GFR, CBC, ADIFF, BMP #### [address] [address] Platelet 255 10 3/mcL Normal 130-400 [facility] ([place]) Comment on above: Performed By: #### M DW, TROPHS, ANEU, GFR, CBC, ADIFF, BMP #### [address] [address] Platelet mean volume (Bld) [Entitic vol] 8.9 fL Normal 7.4-10.4 [facility] ([place]) Comment on above: Performed By: #### M DW, TROPHS, ANEU, GFR, CBC, ADIFF, BMP #### [address] [address] RBC 3.53 10 6/mcL Low 4.20-5.40 [facility] ([place]) Comment on above: Performed By: #### M DW, TROPHS, ANEU, GFR, CBC, ADIFF, BMP #### [address] [address] WBC 9.1 10 3/mcL Normal 4.6-10.8 [facility] ([place]) Comment on above: Performed By: #### M DW, TROPHS, ANEU, GFR, CBC, ADIFF, BMP #### [facility] [address] [place], [place] [address] LABORATORYOrdered By: Gerardo Garcia on 12-13-2023 Blood Glucose Testing Reason Routine (12/13/23 11:48 AM) [facility] Glucose [Mass/Vol] 197 mg/dL High 82 - 115 mg/dL [facility] Blood Glucose Testing Reason Routine (12/13/23 7:55 AM) [facility] Glucose [Mass/Vol] 120 mg/dL High 82 - 115 mg/dL [facility] LABORATORYOrdered By: SYSTEM SYSTEM on 12-13-2023 Basophil, Absolute 0.0 103/mcL Normal 0.0 - 0.2 10^3/mcL AO Workflow SS Basophils/100 WBC (Bld) 0.4 % Normal 0.0 - 2.5 % AO Workflow SS Calcium [Mass/Vol] 8.4 mg/dL Normal 8.4 - 10. 2 mg/dL AO ADM SS Chloride [Moles/Vol] 104 mmol/L Normal 98 - 10 7 mmol/L AO ADM SS CO2 [Moles/Vol] 26 mmol/L Normal 23 - 31 mmol/L AO ADM SS Creatinine [Mass/Vol] 0.76 mg/dL Normal 0.55 - 1.02 mg/dL AO ADM SS Electrolyte Balance 5.0 mEq/L Normal 4.0 - 15 .0 mEq/L AO ADM SS Eosinophil, Absolute 0.0 103/mcL Normal 0.0 - 0 .4 10^3/mcL AO Workflow SS Eosinophils/100 WBC (Bld) 0.4 % Normal 0.0 - 7.0 % AO Workflow SS Erythrocyte distribution width (RBC) [Ratio] 14.1 % Normal 11.5 - 14.5 % AO Workflow SS GFR/1.73 sq M.predicted among blacks MDRD (S/P/Bld) [Vol rate/Area] 87 ml/min/1.73sqm Invalid Interpretation Code AO Chemistry S Comment on above: Interpretive Data: GFR Population mean for , Non- Americans Ages 20-29 = 116 mL/min/1.73 sq.m. Ages 30-39 = 107 mL/min/1.73 sq.m. Ages 40-49 = 99 mL/min/1.73 sq.m. Ages 50-59 = 93 mL/min/1.73 sq.m. Ages 60-69 = 85 mL/min/1.73 sq.m. Ages 70+ = 75 mL/min/1.73 sq.m. Chronic Kidney Disease: Less than 60 mL/min/1.73 square meters End Stage Renal Disease: Less than 15 mL/min/1.73 square meters GFR/1.73 sq M.predicted among non-blacks MDRD (S/P/Bld) [Vol rate/Area] 72 ml/min/1.73sqm Invalid Interpretation Code AO Chemistry S Comment on above: Interpretive Data: GFR Population mean for , Non- Americans Ages 20-29 = 116 mL/min/1.73 sq.m. Ages 30-39 = 107 mL/min/1.73 sq.m. Ages 40-49 = 99 mL/min/1.73 sq.m. Ages 50-59 = 93 mL/min/1.73 sq.m. Ages 60-69 = 85 mL/min/1.73 sq.m. Ages 70+ = 75 mL/min/1.73 sq.m. Chronic Kidney Disease: Less than 60 mL/min/1.73 square meters End Stage Renal Disease: Less than 15 mL/min/1.73 square meters Glucose [Mass/Vol] 142 mg/dL High 83 - 110 mg/dL AO ADM SS Hematocrit (Bld) [Volume fraction] 32.3 % Low 37.0 - 47.0 % AO Workflow SS Hemoglobin (Bld) [Mass/Vol] 11.0 G/dL Low 12.0 - 16.0 G/dL AO Workflow SS Lymphocyte, Absolute 1.7 103/mcL Normal 0.8 - 3 .9 10^3/mcL AO Workflow SS Lymphocytes/100 WBC (Bld) 18.9 % Normal 10.0 - 50.0 % AO Workflow SS Magnesium [Mass/Vol] 1.8 mg/dL Normal 1.8 - 2 .4 mg/dL AO ADM SS MCH (RBC) [Entitic mass] 31.3 pg High 27.0 - 31.2 pg AO Workflow SS MCHC 34.1 G/dL Normal 33.0 - 37.0 G/dL AO Workflow SS MCV (RBC) [Entitic vol] 91.6 fL Normal 80.0 - 94.0 fL AO Workflow SS Monocyte, Absolute 0.7 103/mcL Normal 0.2 - 1.0 10^3/mcL AO Workflow SS Monocytes/100 WBC (Bld) 7.8 % Normal 1.7 - 13.0 % AO Workflow SS Neutrophil, Absolute 6.6 103/mcL High 2.9 - 6 .2 10^3/mcL AO Workflow SS Neutrophils/100 WBC (Bld) 72.5 % Normal 37.0 - 80.0 % AO Workflow SS Platelet mean volume (Bld) [Entitic vol] 8.9 fL Normal 7.4 - 10.4 fL AO Workflow SS Platelets (Bld) [#/Vol] 255 103/mcL Normal 130 - 400 10^3/mcL AO Workflow SS Potassium [Moles/Vol] 3.6 mmol/L Normal 3.5 - 5.1 mmol/L AO ADM SS RBC (Bld) [#/Vol] 3.53 106/mcL Low 4.20 - 5.4 0 10^6/mcL AO Workflow SS Sodium [Moles/Vol] 135 mmol/L Low 136 - 145 mmol/L AO ADM SS Urea nitrogen [Mass/Vol] 13 mg/dL Normal 7 - 18 mg/dL AO ADM SS Urea nitrogen/Creatinine [Mass ratio] 17 ratio Normal 7 - 27 ratio AO ADM SS WBC (Bld) [#/Vol] 9.1 103/mcL Normal 4.6 - 10.8 10^3/mcL AO Workflow SS MGon 12-13-2023 Magnesium [Mass/Vol] 1.8 mg/dL Normal 1.8-2.4 [facility] ([place]) Comment on above: Performed By: #### M DW, TROPHS, ANEU, GFR, CBC, ADIFF, BMP #### Talisha [place] [id number] .Auto Diffon 12-12-2023 Basophil, Absolute 0.0 10 3/mcL Normal 0.0-0.2 [facility] ([place]) Comment on above: Performed By: #### M DW, TROPHS, ANEU, GFR, CBC, ADIFF, BMP #### [address] [address] Basophils/100 WBC (Bld) 0.2 % Normal 0.0-2.5 [facility] ([place]) Comment on above: Performed By: #### M DW, TROPHS, ANEU, GFR, CBC, ADIFF, BMP #### [address] [address] Eosinophil, Absolute 0.0 10 3/mcL Normal 0.0-0.4 [facility] ([place]) Comment on above: Performed By: #### M DW, TROPHS, ANEU, GFR, CBC, ADIFF, BMP #### [address] [address] Eosinophils/100 WBC (Bld) 0.1 % Normal 0.0-7.0 [facility] ([place]) Comment on above: Performed By: #### M DW, TROPHS, ANEU, GFR, CBC, ADIFF, BMP #### [address] [address] Lymphocyte, Absolute 1.0 10 3/mcL Normal 0.8-3.9 [facility] ([place]) Comment on above: Performed By: #### M DW, TROPHS, ANEU, GFR, CBC, ADIFF, BMP #### [address] [address] Lymphocytes/100 WBC (Bld) 6.2 % Low 10.0-50.0 [facility] ([place]) Comment on above: Performed By: #### M DW, TROPHS, ANEU, GFR, CBC, ADIFF, BMP #### [address] [address] Monocyte, Absolute 0.6 10 3/mcL Normal 0.2-1.0 [facility] ([place]) Comment on above: Performed By: #### M DW, TROPHS, ANEU, GFR, CBC, ADIFF, BMP #### [address] [address] Monocytes/100 WBC (Bld) 3.6 % Normal 1.7-13.0 [facility] ([place]) Comment on above: Performed By: #### M DW, TROPHS, ANEU, GFR, CBC, ADIFF, BMP #### [address] [address] Neutrophils/100 WBC (Bld) 89.9 % High 37.0-80.0 [facility] ([place]) Comment on above: Performed By: #### M DW, TROPHS, ANEU, GFR, CBC, ADIFF, BMP #### [address] [address] .GFRon 12-12-2023 GFR 86 ml/min/1.73sqm Normal [facility] ([place]) Comment on above: Result Comment: GFR Population mean for , Non- Americans Ages 20-29 = 116 mL/min/1.73 sq.m. Ages 30-39 = 107 mL/min/1.73 sq.m. Ages 40-49 = 99 mL/min/1.73 sq.m. Ages 50-59 = 93 mL/min/1.73 sq.m. Ages 60-69 = 85 mL/min/1.73 sq.m. Ages 70+ = 75 mL/min/1.73 sq.m. Chronic Kidney Disease: Less than 60 mL/min/1.73 square meters End Stage Renal Disease: Less than 15 mL/min/1.73 square meters Performed By: #### M DW, TROPHS, ANEU, GFR, CBC, ADIFF, BMP #### [address] [address] GFR Non- 71 ml/min/1.73sqm Normal [facility] ([place]) Comment on above: Result Comment: GFR Population mean for , Non- Americans Ages 20-29 = 116 mL/min/1.73 sq.m. Ages 30-39 = 107 mL/min/1.73 sq.m. Ages 40-49 = 99 mL/min/1.73 sq.m. Ages 50-59 = 93 mL/min/1.73 sq.m. Ages 60-69 = 85 mL/min/1.73 sq.m. Ages 70+ = 75 mL/min/1.73 sq.m. Chronic Kidney Disease: Less than 60 mL/min/1.73 square meters End Stage Renal Disease: Less than 15 mL/min/1.73 square meters Performed By: #### M DW, TROPHS, ANEU, GFR, CBC, ADIFF, BMP #### [place] [id number] .MDWon 12-12-2023 Monocyte Distribution Width 20.78 High 0.00-20.00 [facility] ([place]) Comment on above: Result Comment: For adults in ED, MDW>20.0 may be associated with a higher risk of sepsis during the first 12hrs of hospital admission Performed By: #### M DW, TROPHS, ANEU, GFR, CBC, ADIFF, BMP #### [place] [address] .NEUABSon 12-12-2023 Neutrophil, Absolute 13.8 10 3/mcL High 2.9-6.2 A [facility] ([place]) Comment on above: Performed By: #### M DW, TROPHS, ANEU, GFR, CBC, ADIFF, BMP #### [place] [address] .Urinalysis Microscopic (AO) on 12-12-2023 UA RBC None Seen Normal None Seen [facility] ([place]) Comment on above: Performed By: #### U A, UAMICAO #### [place] [address] UA Squam Epithelial 0-5 Abnormal None Seen [facility] ([place]) Comment on above: Performed By: #### U A, UAMICAO #### [place] [id number] UA WBC 0-5 Abnormal None Seen [facility] ([place]) Comment on above: Performed By: #### U A, UAMICAO #### [place] [address] CBCon 08-28-2024 Erythrocyte distribution width (RBC) [Ratio] 14.2 % Normal 11.5-14.5 [facility] ([place]) Comment on above: Performed By: #### M DW, TROPHS, ANEU, GFR, CBC, ADIFF, BMP #### [address] [address] Hematocrit (Bld) [Volume fraction] 36.9 % Low 37.0-47.0 [facility] ([place]) Comment on above: Performed By: #### M DW, TROPHS, ANEU, GFR, CBC, ADIFF, BMP #### [address] [address] Hgb 12.3 G/dL Normal 12.0-16.0 [facility] ([place]) Comment on above: Performed By: #### M DW, TROPHS, ANEU, GFR, CBC, ADIFF, BMP #### [address] [address] MCH (RBC) [Entitic mass] 30.6 pg Normal 27.0-31.2 [facility] ([place]) Comment on above: Performed By: #### M DW, TROPHS, ANEU, GFR, CBC, ADIFF, BMP #### [place] [address] MCHC 33.4 G/dL Normal 33.0-37.0 [facility] ([place]) Comment on above: Performed By: #### M DW, TROPHS, ANEU, GFR, CBC, ADIFF, BMP #### [place] [address] MCV (RBC) [Entitic vol] 91.7 fL Normal 80.0-94.0 [facility] ([place]) Comment on above: Performed By: #### M DW, TROPHS, ANEU, GFR, CBC, ADIFF, BMP #### [place] [id number] Platelet 260 10 3/mcL Normal 130-400 [facility] ([place]) Comment on above: Performed By: #### M DW, TROPHS, ANEU, GFR, CBC, ADIFF, BMP #### [address] [address] Platelet mean volume (Bld) [Entitic vol] 8.5 fL Normal 7.4-10.4 [facility] ([place]) Comment on above: Performed By: #### M DW, TROPHS, ANEU, GFR, CBC, ADIFF, BMP #### [address] [address] RBC 4.02 10 6/mcL Low 4.20-5.40 [facility] ([place]) Comment on above: Performed By: #### M DW, TROPHS, ANEU, GFR, CBC, ADIFF, BMP #### [address] [address] WBC 15.4 10 3/mcL High 4.6-10.8 [facility] ([place]) Comment on above: Performed By: #### M DW, TROPHS, ANEU, GFR, CBC, ADIFF, BMP #### [address] [address] CMPon 12-12-2023 Albumin Level 3.4 G/dL Normal 3.4-4.8 [facility] ([place]) Comment on above: Performed By: #### M DW, TROPHS, ANEU, GFR, CBC, ADIFF, BMP #### [address] [address] Albumin/Globulin [Mass ratio] 1.2 {ratio} Normal 1.1-2.5 [facility] ([place]) Comment on above: Performed By: #### M DW, TROPHS, ANEU, GFR, CBC, ADIFF, BMP #### [address] [address] ALP [Catalytic activity/Vol] 81 U/L Normal 40-135 [facility] ([place]) Comment on above: Performed By: #### M DW, TROPHS, ANEU, GFR, CBC, ADIFF, BMP #### [address] [address] ALT [Catalytic activity/Vol] 18 U/L Normal 14-59 [facility] ([place]) Comment on above: Performed By: #### M DW, TROPHS, ANEU, GFR, CBC, ADIFF, BMP #### [address] [address] AST [Catalytic activity/Vol] 18 U/L Normal 10-40 [facility] ([place]) Comment on above: Performed By: #### M DW, TROPHS, ANEU, GFR, CBC, ADIFF, BMP #### [address] [address] Bili Total 0.4 mg/dL Normal 0.2-1.0 [facility] ([place]) Comment on above: Result Comment: Use of this assay is not recommended for patients undergoing treatment with eltrombopag due to the potential for falsely elevated results. Performed By: #### M DW, TROPHS, ANEU, GFR, CBC, ADIFF, BMP #### [address] [address] BUN/Creatinine Ratio 18 ratio Normal 7-27 [facility] ([place]) Comment on above: Performed By: #### M DW, TROPHS, ANEU, GFR, CBC, ADIFF, BMP #### [address] [address] Calcium [Mass/Vol] 8.8 mg/dL Normal 8.4-10.2 [facility] ([place]) Comment on above: Performed By: #### M DW, TROPHS, ANEU, GFR, CBC, ADIFF, BMP #### [address] [address] Chloride [Moles/Vol] 102 mmol/L Normal 98-107 [facility] ([place]) Comment on above: Performed By: #### M DW, TROPHS, ANEU, GFR, CBC, ADIFF, BMP #### [address] [address] CO2 [Moles/Vol] 24 mmol/L Normal 23-31 [facility] ([place]) Comment on above: Performed By: #### M DW, TROPHS, ANEU, GFR, CBC, ADIFF, BMP #### [address] [address] Creatinine [Mass/Vol] 0.77 mg/dL Normal 0.55-1.02 [facility] ([place]) Comment on above: Performed By: #### M DW, TROPHS, ANEU, GFR, CBC, ADIFF, BMP #### [address] [address] Electrolyte Balance 9.0 mEq/L Normal 4.0-15.0 [facility] ([place]) Comment on above: Performed By: #### M DW, TROPHS, ANEU, GFR, CBC, ADIFF, BMP #### [address] [address] Globulin 2.8 G/dL Normal [facility] ([place]) Comment on above: Performed By: #### M DW, TROPHS, ANEU, GFR, CBC, ADIFF, BMP #### [address] [address] Glucose [Mass/Vol] 179 mg/dL High 83-110 [facility] ([place]) Comment on above: Performed By: #### M DW, TROPHS, ANEU, GFR, CBC, ADIFF, BMP #### [address] [address] Potassium [Moles/Vol] 3.9 mmol/L Normal 3.5-5.1 [facility] ([place]) Comment on above: Performed By: #### M DW, TROPHS, ANEU, GFR, CBC, ADIFF, BMP #### [address] [address] Sodium [Moles/Vol] 135 mmol/L Low 136-145 [facility] ([place]) Comment on above: Performed By: #### M DW, TROPHS, ANEU, GFR, CBC, ADIFF, BMP #### [address] [address] Total Protein 6.2 G/dL Low 6.4-8.2 [facility] ([place]) Comment on above: Performed By: #### M DW, TROPHS, ANEU, GFR, CBC, ADIFF, BMP #### [address] [address] Urea nitrogen [Mass/Vol] 14 mg/dL Normal 7-18 [facility] ([place]) Comment on above: Performed By: #### M DW, TROPHS, ANEU, GFR, CBC, ADIFF, BMP #### Talisha [place] [address] [place], [place] [address] CT HEAD OR BRAIN W/O CONTRAS Ton 12-12-2023 CT HEAD OR BRAIN W/O CONTRAST ORIGINAL EXAMINATION: CT OF THE HEAD WITHOUT CONTRAST 12/12/2023 9:06 pm TECHNIQUE: CT of the head was performed without the administration of intravenous contrast. Automated exposure control, iterative reconstruction, and/or weight based adjustment of the mA/kV was utilized to reduce the radiation dose to as low as reasonably achievable. COMPARISON: 12/03/2023 HISTORY: ORDERING SYSTEM PROVIDED HISTORY: Reason for Exam: syncopal episode FINDINGS: BRAIN/VENTRICLES: There is no acute intracranial hemorrhage, mass effect or midline shift. No abnormal extra-axial fluid collection. The dasilva-white differentiation is maintained without evidence of an acute infarct. There is no evidence of hydrocephalus. ORBITS: The visualized portion of the orbits demonstrate no acute abnormality. SINUSES: The visualized paranasal sinuses and mastoid air cells demonstrate no acute abnormality. SOFT TISSUES/SKULL: No acute abnormality of the visualized skull or soft tissues. IMPRESSION: No acute intracranial abnormality. Interpreted by: Joshua Concepcion Preliminary Report By: Joshua Concepcion Electronically signed By Joshua Concepcion Dictated Date: 12/12/2023 9:32:04 PM Prelim Date: 12/12/2023 9:32:34 PM Sign Date: 12/12/2023 9:32:34 PM Ordering Provider: ALVAREZ Duong [facility] ([place]) LABORATORYOrdered By: SYSTEM SYSTEM on 12-12-2023 Albumin BCP dye [Mass/Vol] 3.4 G/dL Normal 3.4 - 4.8 G/dL AO ADM SS Albumin/Globulin [Mass ratio] 1.2 {ratio} Normal 1.1 - 2.5 ratio AO ADM SS ALP [Catalytic activity/Vol] 81 U/L Normal 40 - 135 U/L AO ADM SS ALT With P-5'-P [Catalytic activity/Vol] 18 U/L Normal 14 - 59 U/L AO ADM SS AST With P-5'-P [Catalytic activity/Vol] 18 U/L Normal 10 - 40 U/L AO ADM SS Basophil, Absolute 0.0 103/mcL Normal 0.0 - 0.2 10^3/mcL AO Workflow SS Basophils/100 WBC (Bld) 0.2 % Normal 0.0 - 2.5 % AO Workflow SS Bilirubin [Mass/Vol] 0.4 mg/dL Normal 0.2 - 1 .0 mg/dL AO ADM SS Comment on above: Interpretive Data: U se of this assay is not recommended for patients undergoing treatment with eltrombopag due to the potential for falsely elevated results. Calcium [Mass/Vol] 8.8 mg/dL Normal 8.4 - 10. 2 mg/dL AO ADM SS Chloride [Moles/Vol] 102 mmol/L Normal 98 - 10 7 mmol/L AO ADM SS CO2 [Moles/Vol] 24 mmol/L Normal 23 - 31 mmol/L AO ADM SS Creatinine [Mass/Vol] 0.77 mg/dL Normal 0.55 - 1.02 mg/dL AO ADM SS Electrolyte Balance 9.0 mEq/L Normal 4.0 - 15 .0 mEq/L AO ADM SS Eosinophil, Absolute 0.0 103/mcL Normal 0.0 - 0 .4 10^3/mcL AO Workflow SS Eosinophils/100 WBC (Bld) 0.1 % Normal 0.0 - 7.0 % AO Workflow SS Erythrocyte distribution width (RBC) [Ratio] 14.2 % Normal 11.5 - 14.5 % AO Workflow SS GFR/1.73 sq M.predicted among blacks MDRD (S/P/Bld) [Vol rate/Area] 86 ml/min/1.73sqm Invalid Interpretation Code AO Chemistry S Comment on above: Interpretive Data: GFR Population mean for , Non- Americans Ages 20-29 = 116 mL/min/1.73 sq.m. Ages 30-39 = 107 mL/min/1.73 sq.m. Ages 40-49 = 99 mL/min/1.73 sq.m. Ages 50-59 = 93 mL/min/1.73 sq.m. Ages 60-69 = 85 mL/min/1.73 sq.m. Ages 70+ = 75 mL/min/1.73 sq.m. Chronic Kidney Disease: Less than 60 mL/min/1.73 square meters End Stage Renal Disease: Less than 15 mL/min/1.73 square meters GFR/1.73 sq M.predicted among non-blacks MDRD (S/P/Bld) [Vol rate/Area] 71 ml/min/1.73sqm Invalid Interpretation Code AO Chemistry S Comment on above: Interpretive Data: GFR Population mean for , Non- Americans Ages 20-29 = 116 mL/min/1.73 sq.m. Ages 30-39 = 107 mL/min/1.73 sq.m. Ages 40-49 = 99 mL/min/1.73 sq.m. Ages 50-59 = 93 mL/min/1.73 sq.m. Ages 60-69 = 85 mL/min/1.73 sq.m. Ages 70+ = 75 mL/min/1.73 sq.m. Chronic Kidney Disease: Less than 60 mL/min/1.73 square meters End Stage Renal Disease: Less than 15 mL/min/1.73 square meters Globulin 2.8 G/dL Invalid Interpretation Code AO ADM SS Glucose [Mass/Vol] 179 mg/dL High 83 - 110 mg/dL AO ADM SS Hematocrit (Bld) [Volume fraction] 36.9 % Low 37.0 - 47.0 % AO Workflow SS Hemoglobin (Bld) [Mass/Vol] 12.3 G/dL Normal 12.0 - 16.0 G/dL AO Workflow SS Lymphocyte, Absolute 1.0 103/mcL Normal 0.8 - 3 .9 10^3/mcL AO Workflow SS Lymphocytes/100 WBC (Bld) 6.2 % Low 10.0 - 50.0 % AO Workflow SS MCH (RBC) [Entitic mass] 30.6 pg Normal 27.0 - 31.2 pg AO Workflow SS MCHC 33.4 G/dL Normal 33.0 - 37.0 G/dL AO Workflow SS MCV (RBC) [Entitic vol] 91.7 fL Normal 80.0 - 94.0 fL AO Workflow SS Monocyte distribution width Auto (Bld) [Entitic vol] 20.78 1 High 0.00 - 20.00 AO Workflow SS Comment on above: Result Comment: For adults in ED, MDW>20.0 may be associated with a higher risk of sepsis during the first 12hrs of hospital admission Monocyte, Absolute 0.6 103/mcL Normal 0.2 - 1.0 10^3/mcL AO Workflow SS Monocytes/100 WBC (Bld) 3.6 % Normal 1.7 - 13.0 % AO Workflow SS Neutrophil, Absolute 13.8 103/mcL High 2.9 - 6 .2 10^3/mcL AO Workflow SS Neutrophils/100 WBC (Bld) 89.9 % High 37.0 - 80.0 % AO Workflow SS Platelet mean volume (Bld) [Entitic vol] 8.5 fL Normal 7.4 - 10.4 fL AO Workflow SS Platelets (Bld) [#/Vol] 260 103/mcL Normal 130 - 400 10^3/mcL AO Workflow SS Potassium [Moles/Vol] 3.9 mmol/L Normal 3.5 - 5.1 mmol/L AO ADM SS Protein [Mass/Vol] 6.2 G/dL Low 6.4 - 8.2 G/dL AO ADM SS RBC (Bld) [#/Vol] 4.02 106/mcL Low 4.20 - 5.4 0 10^6/mcL AO Workflow SS Sodium [Moles/Vol] 135 mmol/L Low 136 - 145 mmol/L AO ADM SS Troponin I.cardiac DL <= 0.01 ng/mL [Mass/Vol] 9 ng/L Normal 0 - 51 ng/L AO ADM SS Comment on above: Interpretive Data: H igh Sensitive Troponin I Reference Ranges: Female: 0-51 ng/L Male: 0-76 ng/L Testing performed on [employer] using a homogeneous sandwich chemiluminescent immunoassay based on [employer] technology. Urea nitrogen [Mass/Vol] 14 mg/dL Normal 7 - 18 mg/dL AO ADM SS Urea nitrogen/Creatinine [Mass ratio] 18 ratio Normal 7 - 27 ratio AO ADM SS WBC (Bld) [#/Vol] 15.4 103/mcL High 4.6 - 10.8 10^3/mcL AO Workflow SS LABORATORYOrdered By: Callie Kwon on 12-12-2023 Appearance (U) Clear (12/12/23 8:29 PM) Normal Clear AO Auto Urine SS Bilirubin Ql (U) Negative (12/12/23 8:29 PM) Normal Negative AO Auto Urine SS Color (U) Yellow (12/12/23 8:29 PM) Normal AO Auto Urine SS Glucose Test strip (U) [Mass/Vol] 100 mg/dL Invalid Interpretation Code Negative AO Auto Urine SS Hemoglobin Auto test strip (U) [Mass/Vol] Negative (12/12/23 8:29 PM) Normal Negative AO Auto Urine SS Ketones Ql (U) 40 mg/dL Invalid Interpretation Code Negative AO Auto Urine SS UA Leuk Est Small *ABN* (12/12/23 8:29 PM) Invalid Interpretation Code Negative AO Auto Urine SS UA Nitrite Negative (12/12/23 8:29 PM) Normal Negative AO Auto Urine SS UA pH 7.0 (12/12/23 8:29 PM) Normal 5.0 - 8.0 AO Auto Urine SS UA Protein Negative Normal Negative AO Auto Urine SS UA RBC None Seen /HPF Normal None Seen AO Auto Ur ine SS UA Spec Grav 1.025 (12/12/23 8:29 PM) Normal 1.015-1.025 AO Auto Urine SS UA Specimen Type Void (12/12/23 8:29 PM) Normal AO Auto Urine SS UA Squam Epithelial 0-5 /HPF Invalid Interpretation Code None Seen AO Auto Urine SS UA Urobilinogen 0.2 E.U./dL Normal 0.2-1.0 AO Auto Urine SS WBC LM.HPF (Urine sed) [#/Area] 0-5 /HPF Invalid Interpretation Code None Seen AO Auto Urine SS TROPHSon 12-12-2023 High Sensitivity Troponin I 9 ng/L Normal 0-51 [facility] ([place]) Comment on above: Result Comment: High Sensitive Troponin I Reference Ranges: Female: 0-51 ng/L Male: 0-76 ng/L Testing performed on [employer] using a homogeneous sandwich chemiluminescent immunoassay based on [employer] technology. Performed By: #### M DW, TROPHS, ANEU, GFR, CBC, ADIFF, BMP #### Talisha [address] [address] UAon 12-12-2023 Color (U) Yellow Normal [facility] ([place]) Comment on above: Performed By: #### U A UAMICAO #### [address] [address] Glucose (U) [Mass/Vol] 100 mg/dL Abnormal Negative [facility] ([place]) Comment on above: Performed By: #### U A UAMICAO #### Talisha [place] [address] Ketones Ql (U) 40 mg/dL Abnormal Negative [facility] ([place]) Comment on above: Performed By: #### U A, UAMICAO #### [place] [address] UA Appear Clear Normal Clear [facility] ([place]) Comment on above: Performed By: #### U A, UAMICAO #### [place] [address] UA Blood Negative Normal Negative [facility] ([place]) Comment on above: Performed By: #### U A, UAMICAO #### [place] [address] UA Leuk Est Small Abnormal Negative [facility] ([place]) Comment on above: Performed By: #### U A, UAMICAO #### [place] [address] UA Nitrite Negative Normal Negative [facility] ([place]) Comment on above: Performed By: #### U A, UAMICAO #### [place] [address] UA pH 7.0 Normal 5.0 - 8.0 [facility] ([place]) Comment on above: Performed By: #### U A, UAMICAO #### [place] [address] UA Protein Negative Normal Negative [facility] ([place]) Comment on above: Performed By: #### U A, UAMICAO #### [place] [address] UA Spec Grav 1.025 Normal 1.015-1.025 [facility] ([place]) Comment on above: Performed By: #### U A, UAMICAO #### [place] [address] UA Specimen Type Void Normal [facility] ([place]) Comment on above: Performed By: #### U A, UAMICAO #### [place] [address] UA Urobilinogen 0.2 E.U./dL Normal 0.2-1.0 [facility] ([place]) Comment on above: Performed By: #### U ROYAL Felix #### [address] [address] Urobilinogen (U) [Mass/Vol] Negative Normal Negative [facility] ([place]) Comment on above: Performed By: #### ROYAL Pozo #### [address] [address] XR CHEST 1 VIEWon 12-12-2023 XR CHEST 1 VIEW ORIGINAL EXAMINATION: ONE XRAY VIEW OF THE CHEST 12/12/2023 9:06 pm COMPARISON: 03/10/2023 HISTORY: ORDERING SYSTEM PROVIDED HISTORY: Reason for Exam: syncopal episode FINDINGS: The cardiomediastinal silhouette appears normal in size with aortic calcifications.. There is no focal consolidation. There is no pulmonary edema. There is no evidence of pleural effusion. There is no evidence of pneumothorax. No fracture is identified. IMPRESSION: No acute abnormality is identified. Interpreted by: Joshua Concepcion Preliminary Report By: Joshua Concepcion Electronically signed By Joshua Concepcion Dictated Date: 12/12/2023 9:31:40 PM Prelim Date: 12/12/2023 9:31:56 PM Sign Date: 12/12/2023 9:31:56 PM Ordering Provider: ALVAREZ Duong [facility] ([place]) .Auto Diffon 12-03-2023 Basophil, Absolute 0.1 10 3/mcL Normal 0.0-0.2 [facility] ([place]) Comment on above: Performed By: #### M DW, TROPHS, ANEU, GFR, CBC, ADIFF, BMP #### [place] [address] [place], [place] [address] Basophils/100 WBC (Bld) 0.8 % Normal 0.0-2.5 [facility] ([place]) Comment on above: Performed By: #### M DW, TROPHS, ANEU, GFR, CBC, ADIFF, BMP #### [place] [address] [place], [place] [address] Eosinophil, Absolute 0.1 10 3/mcL Normal 0.0-0.4 [facility] ([place]) Comment on above: Performed By: #### M DW, TROPHS, ANEU, GFR, CBC, ADIFF, BMP #### [address] [address] Eosinophils/100 WBC (Bld) 1.6 % Normal 0.0-7.0 [facility] ([place]) Comment on above: Performed By: #### M DW, TROPHS, ANEU, GFR, CBC, ADIFF, BMP #### [address] [address] Lymphocyte, Absolute 1.6 10 3/mcL Normal 0.8-3.9 [facility] ([place]) Comment on above: Performed By: #### M DW, TROPHS, ANEU, GFR, CBC, ADIFF, BMP #### [address] [address] Lymphocytes/100 WBC (Bld) 21.5 % Normal 10.0-50.0 [facility] ([place]) Comment on above: Performed By: #### M DW, TROPHS, ANEU, GFR, CBC, ADIFF, BMP #### [address] [address] Monocyte, Absolute 0.6 10 3/mcL Normal 0.2-1.0 [facility] ([place]) Comment on above: Performed By: #### M DW, TROPHS, ANEU, GFR, CBC, ADIFF, BMP #### [address] [address] Monocytes/100 WBC (Bld) 7.6 % Normal 1.7-13.0 [facility] ([place]) Comment on above: Performed By: #### M DW, TROPHS, ANEU, GFR, CBC, ADIFF, BMP #### [address] [address] Neutrophils/100 WBC (Bld) 68.5 % Normal 37.0-80.0 [facility] ([place]) Comment on above: Performed By: #### M DW, TROPHS, ANEU, GFR, CBC, ADIFF, BMP #### [address] [address] .GFRon 12-03-2023 GFR 60 ml/min/1.73sqm Normal [facility] ([place]) Comment on above: Result Comment: GFR Population mean for , Non- Americans Ages 20-29 = 116 mL/min/1.73 sq.m. Ages 30-39 = 107 mL/min/1.73 sq.m. Ages 40-49 = 99 mL/min/1.73 sq.m. Ages 50-59 = 93 mL/min/1.73 sq.m. Ages 60-69 = 85 mL/min/1.73 sq.m. Ages 70+ = 75 mL/min/1.73 sq.m. Chronic Kidney Disease: Less than 60 mL/min/1.73 square meters End Stage Renal Disease: Less than 15 mL/min/1.73 square meters Performed By: #### M DW, TROPHS, ANEU, GFR, CBC, ADIFF, BMP #### [address] [address] GFR Non- 49 ml/min/1.73sqm Normal [facility] ([place]) Comment on above: Result Comment: GFR Population mean for , Non- Americans Ages 20-29 = 116 mL/min/1.73 sq.m. Ages 30-39 = 107 mL/min/1.73 sq.m. Ages 40-49 = 99 mL/min/1.73 sq.m. Ages 50-59 = 93 mL/min/1.73 sq.m. Ages 60-69 = 85 mL/min/1.73 sq.m. Ages 70+ = 75 mL/min/1.73 sq.m. Chronic Kidney Disease: Less than 60 mL/min/1.73 square meters End Stage Renal Disease: Less than 15 mL/min/1.73 square meters Performed By: #### M DW, TROPHS, ANEU, GFR, CBC, ADIFF, BMP #### [address] [address] .MDWon 12-03-2023 Monocyte Distribution Width 22.00 High 0.00-20.00 [facility] ([place]) Comment on above: Result Comment: For adults in ED, MDW>20.0 may be associated with a higher risk of sepsis during the first 12hrs of hospital admission Performed By: #### M DW, TROPHS, ANEU, GFR, CBC, ADIFF, BMP #### [address] [address] .NEUABSon 12-03-2023 Neutrophil, Absolute 5.1 10 3/mcL Normal 2.9-6.2 [facility] ([place]) Comment on above: Performed By: #### M DW, TROPHS, ANEU, GFR, CBC, ADIFF, BMP #### [address] [address] BMPon 12-03-2023 BUN/Creatinine Ratio 14 ratio Normal 7-27 [facility]) Comment on above: Order Comment: 2023 21:34:54 EDT hemolyzed. EH Performed By: #### M DW, TROPHS, ANEU, GFR, CBC, ADIFF, BMP #### [address] [address] Calcium [Mass/Vol] 9.2 mg/dL Normal 8.4-10.2 [facility]) Comment on above: Order Comment: 2023 21:34:54 EDT hemolyzed. EH Performed By: #### M DW, TROPHS, ANEU, GFR, CBC, ADIFF, BMP #### [address] [address] Chloride [Moles/Vol] 103 mmol/L Normal 98-107 [facility]) Comment on above: Order Comment: 2023 21:34:54 EDT hemolyzed. EH Performed By: #### M DW, TROPHS, ANEU, GFR, CBC, ADIFF, BMP #### [address] [address] CO2 [Moles/Vol] 30 mmol/L Normal 23-31 [facility] ([place]) Comment on above: Order Comment: 2023 21:34:54 EDT hemolyzed. EH Performed By: #### M DW, TROPHS, ANEU, GFR, CBC, ADIFF, BMP #### [address] [address] Creatinine [Mass/Vol] 1.05 mg/dL High 0.55-1.02 [facility] ([place]) Comment on above: Order Comment: 2023 21:34:54 EDT hemolyzed. EH Performed By: #### M DW, TROPHS, ANEU, GFR, CBC, ADIFF, BMP #### [address] [address] Electrolyte Balance 5.0 mEq/L Normal 4.0-15.0 [facility] ([place]) Comment on above: Order Comment: 2023 21:34:54 EDT hemolyzed. EH Performed By: #### M DW, TROPHS, ANEU, GFR, CBC, ADIFF, BMP #### [place] [id number] Glucose [Mass/Vol] 290 mg/dL High 83-110 [facility] ([place]) Comment on above: Order Comment: 2023 21:34:54 EDT hemolyzed. EH Performed By: #### M DW, TROPHS, ANEU, GFR, CBC, ADIFF, BMP #### [address] [address] Potassium [Moles/Vol] 4.2 mmol/L Normal 3.5-5.1 [facility] ([place]) Comment on above: Order Comment: 2023 21:34:54 EDT hemolyzed. EH Performed By: #### M DW, TROPHS, ANEU, GFR, CBC, ADIFF, BMP #### [address] [address] Sodium [Moles/Vol] 138 mmol/L Normal 136-145 [facility] ([place]) Comment on above: Order Comment: 2023 21:34:54 EDT hemolyzed. EH Performed By: #### M DW, TROPHS, ANEU, GFR, CBC, ADIFF, BMP #### [address] [address] Urea nitrogen [Mass/Vol] 15 mg/dL Normal 7-18 [facility] ([place]) Comment on above: Order Comment: 2023 21:34:54 EDT hemolyzed. EH Performed By: #### M DW, TROPHS, ANEU, GFR, CBC, ADIFF, BMP #### [address] [address] CBCon 12-03-2023 Erythrocyte distribution width (RBC) [Ratio] 14.2 % Normal 11.5-14.5 [facility] ([place]) Comment on above: Performed By: #### M DW, TROPHS, ANEU, GFR, CBC, ADIFF, BMP #### [place] [address] Hematocrit (Bld) [Volume fraction] 38.2 % Normal 37.0-47.0 [facility] ([place]) Comment on above: Performed By: #### M DW, TROPHS, ANEU, GFR, CBC, ADIFF, BMP #### [place] [address] Hgb 13.0 G/dL Normal 12.0-16.0 [facility] ([place]) Comment on above: Performed By: #### M DW, TROPHS, ANEU, GFR, CBC, ADIFF, BMP #### [address] [address] MCH (RBC) [Entitic mass] 31.2 pg Normal 27.0-31.2 [facility] ([place]) Comment on above: Performed By: #### M DW, TROPHS, ANEU, GFR, CBC, ADIFF, BMP #### [address] [address] MCHC 34.1 G/dL Normal 33.0-37.0 [facility] ([place]) Comment on above: Performed By: #### M DW, TROPHS, ANEU, GFR, CBC, ADIFF, BMP #### [address] [address] MCV (RBC) [Entitic vol] 91.3 fL Normal 80.0-94.0 [facility] ([place]) Comment on above: Performed By: #### M DW, TROPHS, ANEU, GFR, CBC, ADIFF, BMP #### [address] [address] Platelet 277 10 3/mcL Normal 130-400 [facility] ([place]) Comment on above: Performed By: #### M DW, TROPHS, ANEU, GFR, CBC, ADIFF, BMP #### [address] [address] Platelet mean volume (Bld) [Entitic vol] 8.7 fL Normal 7.4-10.4 [facility] ([place]) Comment on above: Performed By: #### M DW, TROPHS, ANEU, GFR, CBC, ADIFF, BMP #### [address] [address] RBC 4.18 10 6/mcL Low 4.20-5.40 [facility] ([place]) Comment on above: Performed By: #### M DW, TROPHS, ANEU, GFR, CBC, ADIFF, BMP #### [address] [address] WBC 7.4 10 3/mcL Normal 4.6-10.8 [facility] ([place]) Comment on above: Performed By: #### M DW, TROPHS, ANEU, GFR, CBC, ADIFF, BMP #### [address] [address] [address] HEAD OR BRAIN W/O CONTRAS Ton 12-03-2023 CT HEAD OR BRAIN W/O CONTRAST ORIGINAL EXAMINATION: CT OF THE HEAD WITHOUT CONTRAST12/03/2023 10:[address] HEAD/BRAIN WITHOUT CONTRAST EXAM DESCRIPTION: TECHNIQUE: CT of the head was performed without the administration of intravenous contrast. Automated exposure control, iterative reconstruction, and/or weight based adjustment of the mA/kV was utilized to reduce the radiation dose to as low as reasonably achievable. COMPARISON: . MR brain, March 12, 2023 HISTORY: ORDERING SYSTEM PROVIDED HISTORY: Reason for Exam: baum FINDINGS: There is no evidence of mass, midline shift, hemorrhage, or infarct. Although the brain morphology appears normal, the ventricles, cortical sulci, and subarachnoid cisterns appear prominent. There are no extra-axial fluid collections. No regions of pathologic attenuation are evident. Decreased density periventricular white matter. Regions of the orbits and paranasal sinuses included within the field of view are unremarkable. There is no displaced fracture or osseous neoplasm. The extracalvarial soft tissues appear unremarkable. IMPRESSION: 1. No acute intracranial pathology. 2. Prominent CSF spaces usually indicate volume loss/atrophy as a manifestation of mild chronic white matter ischemia. COMMENT: Changes resultant from ischemia (even significant ischemia) may often be inapparent on CT exam, particularly if imaged early. Additionally, early changes due to neoplastic or inflammatory processes can be subtle to the extent that they are not prospectively noted. Therefore, if symptoms persist, or clinical suspicion for pathology remains, further evaluation may be obtained with MRI. Interpreted by: Blaze Whitaker MD Preliminary Report By: Blaze Whitaker MD Electronically signed By Blaze Whitaker MD Dictated Date: 12/03/2023 10:06:13 PM Prelim Date: 12/03/2023 10:07:19 PM Sign Date: 12/03/2023 10:07:19 PM Ordering Provider: NEHAL PIERCE [facility] ([place]) LABORATORYOrdered By: SYSTEM SYSTEM on 12-03-2023 Calcium [Mass/Vol] 9.2 mg/dL Normal 8.4 - 10. 2 mg/dL AO ADM SS Chloride [Moles/Vol] 103 mmol/L Normal 98 - 10 7 mmol/L AO ADM SS CO2 [Moles/Vol] 30 mmol/L Normal 23 - 31 mmol/L AO ADM SS Creatinine [Mass/Vol] 1.05 mg/dL High 0.55 - 1.02 mg/dL AO ADM SS Electrolyte Balance 5.0 mEq/L Normal 4.0 - 15 .0 mEq/L AO ADM SS GFR/1.73 sq M.predicted among blacks MDRD (S/P/Bld) [Vol rate/Area] 60 ml/min/1.73sqm Invalid Interpretation Code AO Chemistry S Comment on above: Interpretive Data: GFR Population mean for , Non- Americans Ages 20-29 = 116 mL/min/1.73 sq.m. Ages 30-39 = 107 mL/min/1.73 sq.m. Ages 40-49 = 99 mL/min/1.73 sq.m. Ages 50-59 = 93 mL/min/1.73 sq.m. Ages 60-69 = 85 mL/min/1.73 sq.m. Ages 70+ = 75 mL/min/1.73 sq.m. Chronic Kidney Disease: Less than 60 mL/min/1.73 square meters End Stage Renal Disease: Less than 15 mL/min/1.73 square meters GFR/1.73 sq M.predicted among non-blacks MDRD (S/P/Bld) [Vol rate/Area] 49 ml/min/1.73sqm Invalid Interpretation Code AO Chemistry S Comment on above: Interpretive Data: GFR Population mean for , Non- Americans Ages 20-29 = 116 mL/min/1.73 sq.m. Ages 30-39 = 107 mL/min/1.73 sq.m. Ages 40-49 = 99 mL/min/1.73 sq.m. Ages 50-59 = 93 mL/min/1.73 sq.m. Ages 60-69 = 85 mL/min/1.73 sq.m. Ages 70+ = 75 mL/min/1.73 sq.m. Chronic Kidney Disease: Less than 60 mL/min/1.73 square meters End Stage Renal Disease: Less than 15 mL/min/1.73 square meters Glucose [Mass/Vol] 290 mg/dL High 83 - 110 mg/dL AO ADM SS Potassium [Moles/Vol] 4.2 mmol/L Normal 3.5 - 5.1 mmol/L AO ADM SS Sodium [Moles/Vol] 138 mmol/L Normal 136 - 145 mmol/L AO ADM SS Urea nitrogen [Mass/Vol] 15 mg/dL Normal 7 - 18 mg/dL AO ADM SS Urea nitrogen/Creatinine [Mass ratio] 14 ratio Normal 7 - 27 ratio AO ADM SS Basophil, Absolute 0.1 103/mcL Normal 0.0 - 0.2 10^3/mcL AO Workflow SS Basophils/100 WBC (Bld) 0.8 % Normal 0.0 - 2.5 % AO Workflow SS Eosinophil, Absolute 0.1 103/mcL Normal 0.0 - 0 .4 10^3/mcL AO Workflow SS Eosinophils/100 WBC (Bld) 1.6 % Normal 0.0 - 7.0 % AO Workflow SS Erythrocyte distribution width (RBC) [Ratio] 14.2 % Normal 11.5 - 14.5 % AO Workflow SS Hematocrit (Bld) [Volume fraction] 38.2 % Normal 37.0 - 47.0 % AO Workflow SS Hemoglobin (Bld) [Mass/Vol] 13.0 G/dL Normal 12.0 - 16.0 G/dL AO Workflow SS Lymphocyte, Absolute 1.6 103/mcL Normal 0.8 - 3 .9 10^3/mcL AO Workflow SS Lymphocytes/100 WBC (Bld) 21.5 % Normal 10.0 - 50.0 % AO Workflow SS MCH (RBC) [Entitic mass] 31.2 pg Normal 27.0 - 31.2 pg AO Workflow SS MCHC 34.1 G/dL Normal 33.0 - 37.0 G/dL AO Workflow SS MCV (RBC) [Entitic vol] 91.3 fL Normal 80.0 - 94.0 fL AO Workflow SS Monocyte distribution width Auto (Bld) [Entitic vol] 22.00 1 High 0.00 - 20.00 AO Workflow SS Comment on above: Result Comment: For adults in ED, MDW>20.0 may be associated with a higher risk of sepsis during the first 12hrs of hospital admission Monocyte, Absolute 0.6 103/mcL Normal 0.2 - 1.0 10^3/mcL AO Workflow SS Monocytes/100 WBC (Bld) 7.6 % Normal 1.7 - 13.0 % AO Workflow SS Neutrophil, Absolute 5.1 103/mcL Normal 2.9 - 6 .2 10^3/mcL AO Workflow SS Neutrophils/100 WBC (Bld) 68.5 % Normal 37.0 - 80.0 % AO Workflow SS Platelet mean volume (Bld) [Entitic vol] 8.7 fL Normal 7.4 - 10.4 fL AO Workflow SS Platelets (Bld) [#/Vol] 277 103/mcL Normal 130 - 400 10^3/mcL AO Workflow SS RBC (Bld) [#/Vol] 4.18 106/mcL Low 4.20 - 5.4 0 10^6/mcL AO Workflow SS Troponin I.cardiac DL <= 0.01 ng/mL [Mass/Vol] 5 ng/L Normal 0 - 51 ng/L AO ADM SS Comment on above: Interpretive Data: H igh Sensitive Troponin I Reference Ranges: Female: 0-51 ng/L Male: 0-76 ng/L Testing performed on Dimension EXL using a homogeneous sandwich chemiluminescent immunoassay based on [employer] technology. WBC (Bld) [#/Vol] 7.4 103/mcL Normal 4.6 - 10.8 10^3/mcL AO Workflow SS [facility] 12-03-2023 High Sensitivity Troponin I 5 ng/L Normal 0-51 [facility] ([place]) Comment on above: Result Comment: High Sensitive Troponin I Reference Ranges: Female: 0-51 ng/L Male: 0-76 ng/L Testing performed on Dimension EXL using a homogeneous sandwich chemiluminescent immunoassay based on [employer] technology. Performed By: #### M DW, TROPHS, ANEU, GFR, CBC, ADIFF, BMP #### [facility] [address] [place], [place] [address] XR HIP 3-4 VIEWS BILATERALon 09-07-2023 XR HIP 3-4 VIEWS BILATERAL ORIGINAL EXAMINATION: 2 XRAY VIEWS OF THE BILATERAL HIPS 09/05/2023 12:56 pm COMPARISON: None. HISTORY: ORDERING SYSTEM PROVIDED HISTORY: Reason for Exam: bilateral hip pain, worse on the right side, s/p fall FINDINGS: Moderate joint space narrowing and osteophyte formation affect the right hip. Mild joint space narrowing affects the left hip. There is no acute fracture involving either hip or the bony pelvic ring. Sacroiliac joints are preserved. There is advanced peripheral arterial calcification in both lower extremities. IMPRESSION: 1. Moderate osteoarthritis right hip. 2. Mild osteoarthritis left hip. 3. No acute fracture. Interpreted by: Fan Keller DO Preliminary Report By: Fan Keller DO Electronically signed By Fan Keller DO Dictated Date: 09/07/2023 4:19:49 PM Prelim Date: 09/07/2023 4:20:49 PM Sign Date: 09/07/2023 4:20:49 PM Ordering Provider: MEY Duong [facility] ([place]) XR SPINE LUMBAR AP/LATon XR SPINE LUMBAR AP/LAT ORIGINAL EXAMINATION: 3 XRAY VIEWS OF THE LUMBAR SPINE 09/05/2023 12:56 pm COMPARISON: 02/21/2023 HISTORY: ORDERING SYSTEM PROVIDED HISTORY: Reason for Exam: lower back pain s/p fall FINDINGS: Intact site of prior posterior fusion involving L3 through L5 noted. 5 lumbar segments present in appropriate apposition and alignment. There is no acute bony abnormality, or subluxation. The sacroiliac joints are preserved. Serpiginous calcification of the splenic artery is noted, unchanged. IMPRESSION: 1. Prior posterior fusion of L3 through L5. 2. No acute bony abnormality. Interpreted by: aFn Keller DO Preliminary Report By: Fan Keller DO Electronically signed By Fan Keller DO Dictated Date: 09/07/2023 3:55:09 PM Prelim Date: 09/07/2023 3:56:25 PM Sign Date: 09/07/2023 3:56:25 PM Ordering Provider: MEY MADDOX [facility] ([place]) XR ANKLE MINIMUM 3 VIEWS RIG on 06-19-2023 XR ANKLE MINIMUM 3 VIEWS RIGHT ORIGINAL EXAMINATION: THREE XRAY VIEWS OF THE RIGHT ANKLE 06/19/2023 10:56 am COMPARISON: None. HISTORY: ORDERING SYSTEM PROVIDED HISTORY: Reason for Exam: fall FINDINGS: Comminuted minimally displaced fracture involves the distal right fibula with attendant soft tissue swelling. The medial and posterior malleoli remain intact. There is some posterior subluxation of the distal tibia on the talus. Subtalar joint is smoothly marginated. IMPRESSION: Comminuted minimally displaced fracture distal right fibula with posterior subluxation of the distal tibia on the talus. Interpreted by: Fan Keller DO Preliminary Report By: Fna Keller DO Electronically signed By Fan Keller DO Dictated Date: 06/19/2023 11:15:12 AM Prelim Date: 06/19/2023 11:16:31 AM Sign Date: 06/19/2023 11:16:31 AM Ordering Provider: ABHIJEET RAMSEY [facility]) LABORATORYOrdered By: Gerardo Garcia on 03-29-2023 Blood Glucose Testing Reason Routine (03/29/23 11:51 AM) [facility] Glucose [Mass/Vol] 151 mg/dL High 82 - 115 mg/dL [facility] Blood Glucose Testing Reason Routine (03/29/23 7:44 AM) [facility] Glucose [Mass/Vol] 127 mg/dL High 82 - 115 mg/dL [facility] LABORATORYOrdered By: Cristal Flanagan on 03-29-2023 Blood Glucose Testing Reason Routine (03/29/23 9:00 AM) [facility] Glucose [Mass/Vol] 136 mg/dL High 82 - 115 mg/dL [facility] LABORATORYOrdered By: Marialuisa Rainey on 03-25-2023 Blood Glucose Interventions Administered agent to decrease blood sugar (03/25/23 12:26 PM) [facility] LABORATORYOrdered By: Jackson Renee on 03-24-2023 Blood Glucose Interventions Administered agent to decrease blood sugar (03/24/23 4:18 PM) [facility] LABORATORYOrdered By: Marialuisa Rainey on 03-24-2023 Blood Glucose Interventions Administered agent to increase blood sugar (03/24/23 8:53 AM) [facility] LABORATORYOrdered By: Darnell Clarke on 03-18-2023 Blood Glucose, Capillary Out of Range Critical High (03/18/23 12:59 PM) [facility] LABORATORYOrdered By: Raquel Valentino on 03-14-2023 Blood Glucose Testing Reason Routine (03/14/23 4:08 PM) [facility] Glucose [Mass/Vol] 181 mg/dL High 82 - 115 mg/dL [facility] LABORATORYOrdered By: Rg Louise on 03-14-2023 Blood Glucose Testing Reason Routine (03/14/23 11:05 AM) [facility] Glucose [Mass/Vol] 228 mg/dL High 82 - 115 mg/dL [facility] Blood Glucose Testing Reason Routine (03/14/23 7:52 AM) [facility] Glucose [Mass/Vol] 130 mg/dL High 82 - 115 mg/dL [facility] .Auto Diffon 03-13-2023 Basophil, Absolute 0.0 10 3/mcL Normal 0.0-0.3 [facility] ([place]) Comment on above: Performed By: #### M DW, TROPHS, ANEU, GFR, CBC, ADIFF, BMP #### [address] [address] Basophils/100 WBC (Bld) 0.6 % Normal 0.0-2.5 [facility] ([place]) Comment on above: Performed By: #### M DW, TROPHS, ANEU, GFR, CBC, ADIFF, BMP #### [address] [address] Eosinophil, Absolute 0.2 10 3/mcL Normal 0.0-0.7 [facility] ([place]) Comment on above: Performed By: #### M DW, TROPHS, ANEU, GFR, CBC, ADIFF, BMP #### [address] [address] Eosinophils/100 WBC (Bld) 2.8 % Normal 0.0-6.0 [facility] ([place]) Comment on above: Performed By: #### M DW, TROPHS, ANEU, GFR, CBC, ADIFF, BMP #### [address] [address] Lymphocyte, Absolute 1.6 10 3/mcL Normal 0.9-4.3 [facility] ([place]) Comment on above: Performed By: #### M DW, TROPHS, ANEU, GFR, CBC, ADIFF, BMP #### [address] [address] Lymphocytes/100 WBC (Bld) 23.1 % Normal 20.0-40.0 [facility] ([place]) Comment on above: Performed By: #### M DW, TROPHS, ANEU, GFR, CBC, ADIFF, BMP #### [address] [address] Monocyte, Absolute 0.6 10 3/mcL Normal 0.1-1.4 [facility] ([place]) Comment on above: Performed By: #### M DW, TROPHS, ANEU, GFR, CBC, ADIFF, BMP #### [address] [address] Monocytes/100 WBC (Bld) 9.0 % Normal 2.0-13.0 [facility] ([place]) Comment on above: Performed By: #### M DW, TROPHS, ANEU, GFR, CBC, ADIFF, BMP #### [address] [address] Neutrophils/100 WBC (Bld) 64.5 % Normal 50.0-75.0 [facility] ([place]) Comment on above: Performed By: #### M DW, TROPHS, ANEU, GFR, CBC, ADIFF, BMP #### [address] [address] .GFRon 03-13-2023 GFR Non- >60 Normal [facility] ([place]) Comment on above: Result Comment: GFR Population mean for , Non- Americans Ages 20-29 = 116 mL/min/1.73 sq.m. Ages 30-39 = 107 mL/min/1.73 sq.m. Ages 40-49 = 99 mL/min/1.73 sq.m. Ages 50-59 = 93 mL/min/1.73 sq.m. Ages 60-69 = 85 mL/min/1.73 sq.m. Ages 70+ = 75 mL/min/1.73 sq.m. Chronic Kidney Disease: Less than 60 mL/min/1.73 square meters End Stage Renal Disease: Less than 15 mL/min/1.73 square meters Performed By: #### M DW, TROPHS, ANEU, GFR, CBC, ADIFF, BMP #### [address] [address] GFR >60 Normal [facility] ([place]) Comment on above: Result Comment: GFR Population mean for , Non- Americans Ages 20-29 = 116 mL/min/1.73 sq.m. Ages 30-39 = 107 mL/min/1.73 sq.m. Ages 40-49 = 99 mL/min/1.73 sq.m. Ages 50-59 = 93 mL/min/1.73 sq.m. Ages 60-69 = 85 mL/min/1.73 sq.m. Ages 70+ = 75 mL/min/1.73 sq.m. Chronic Kidney Disease: Less than 60 mL/min/1.73 square meters End Stage Renal Disease: Less than 15 mL/min/1.73 square meters Performed By: #### M DW, TROPHS, ANEU, GFR, CBC, ADIFF, BMP #### [address] [address] .NEUABSon 03-13-2023 Neutrophil, Absolute 4.6 10 3/mcL Normal 2.3-8.1 [facility] ([place]) Comment on above: Performed By: #### M DW, TROPHS, ANEU, GFR, CBC, ADIFF, BMP #### [address] [address] BMPon 03-13-2023 BUN/Creatinine Ratio 28.8 ratio High 10.0-22.0 [facility] ([place]) Comment on above: Performed By: #### M DW, TROPHS, ANEU, GFR, CBC, ADIFF, BMP #### [address] [address] Calcium [Mass/Vol] 9.2 mg/dL Normal 8.7-10.4 [facility] ([place]) Comment on above: Performed By: #### M DW, TROPHS, ANEU, GFR, CBC, ADIFF, BMP #### [address] [address] Chloride [Moles/Vol] 109 mmol/L Normal 98-110 [facility] ([place]) Comment on above: Performed By: #### M DW, TROPHS, ANEU, GFR, CBC, ADIFF, BMP #### [address] [address] CO2 [Moles/Vol] 27 mmol/L Normal 22-32 [facility] ([place]) Comment on above: Performed By: #### M DW, TROPHS, ANEU, GFR, CBC, ADIFF, BMP #### [address] [address] Creatinine [Mass/Vol] 0.66 mg/dL Normal 0.50-1.20 [facility] ([place]) Comment on above: Performed By: #### M DW, TROPHS, ANEU, GFR, CBC, ADIFF, BMP #### [address] [address] Electrolyte Balance 5.0 mEq/L Normal 4.0-15.0 [facility] ([place]) Comment on above: Performed By: #### M DW, TROPHS, ANEU, GFR, CBC, ADIFF, BMP #### [address] [address] Glucose [Mass/Vol] 136 mg/dL High 82-115 [facility] ([place]) Comment on above: Performed By: #### M DW, TROPHS, ANEU, GFR, CBC, ADIFF, BMP #### [address] [address] Potassium [Moles/Vol] 4.0 mmol/L Normal 3.5-5.0 [facility] ([place]) Comment on above: Performed By: #### M DW, TROPHS, ANEU, GFR, CBC, ADIFF, BMP #### [address] [address] Sodium [Moles/Vol] 141 mmol/L Normal 136-145 [facility] ([place]) Comment on above: Performed By: #### M DW, TROPHS, ANEU, GFR, CBC, ADIFF, BMP #### [address] [address] Urea nitrogen [Mass/Vol] 19.0 mg/dL Normal 8.0-22.0 [facility] ([place]) Comment on above: Performed By: #### M DW, TROPHS, ANEU, GFR, CBC, ADIFF, BMP #### [address] [address] CBCon 03-13-2023 Erythrocyte distribution width (RBC) [Ratio] 14.3 % Normal 11.5-15.5 [facility] ([place]) Comment on above: Performed By: #### M DW, TROPHS, ANEU, GFR, CBC, ADIFF, BMP #### [address] [address] Hematocrit (Bld) [Volume fraction] 38.2 % Normal 34.0-46.0 [facility] ([place]) Comment on above: Performed By: #### M DW, TROPHS, ANEU, GFR, CBC, ADIFF, BMP #### [address] [address] Hgb 12.6 G/dL Normal 12.0-16.0 [facility] ([place]) Comment on above: Performed By: #### M DW, TROPHS, ANEU, GFR, CBC, ADIFF, BMP #### [address] [address] MCH (RBC) [Entitic mass] 30.4 pg Normal 27.0-33.0 [facility] ([place]) Comment on above: Performed By: #### M DW, TROPHS, ANEU, GFR, CBC, ADIFF, BMP #### [address] [address] MCHC 33.0 G/dL Normal 32.0-36.0 [facility] ([place]) Comment on above: Performed By: #### M DW, TROPHS, ANEU, GFR, CBC, ADIFF, BMP #### [address] [address] MCV (RBC) [Entitic vol] 92.0 fL Normal 80.0-99.0 [facility] ([place]) Comment on above: Performed By: #### M DW, TROPHS, ANEU, GFR, CBC, ADIFF, BMP #### [address] [address] Platelet 264 10 3/mcL Normal 150-450 [facility] ([place]) Comment on above: Performed By: #### M DW, TROPHS, ANEU, GFR, CBC, ADIFF, BMP #### [address] [address] Platelet mean volume (Bld) [Entitic vol] 8.8 fL Normal 6.6-10.5 [facility] ([place]) Comment on above: Performed By: #### M DW, TROPHS, ANEU, GFR, CBC, ADIFF, BMP #### [id number] [place], [place] [address] RBC 4.15 10 6/mcL Normal 4.10-5.30 [facility] ([place]) Comment on above: Performed By: #### M DW, TROPHS, ANEU, GFR, CBC, ADIFF, BMP #### [id number] [place], [place] [address] WBC 7.1 10 3/mcL Normal 4.5-10.8 [facility] ([place]) Comment on above: Performed By: #### M DW, TROPHS, ANEU, GFR, CBC, ADIFF, BMP #### [address] [address] LABORATORYOrdered By: SYSTEM SYSTEM on 03-13-2023 Basophils (Bld) [#/Vol] 0.0 103/mcL Normal 0.0 - 0.3 10^3/mcL Workflow SS Basophils/100 WBC (Bld) 0.6 % Normal 0.0 - 2.5 % Workflow SS Calcium [Mass/Vol] 9.2 mg/dL Normal 8.7 - 10. 4 mg/dL ADM SS Chloride [Moles/Vol] 109 mmol/L Normal 98 - 11 0 mEq/L AH ADM SS CO2 [Moles/Vol] 27 mmol/L Normal 22 - 32 mEq/L ADM SS Creatinine [Mass/Vol] 0.66 mg/dL Normal 0.50 - 1.20 mg/dL ADM SS Electrolyte Balance 5.0 mEq/L Normal 4.0 - 15 .0 mEq/L ADM SS Eosinophils (Bld) [#/Vol] 0.2 103/mcL Normal 0.0 - 0.7 10^3/mcL AH Workflow SS Eosinophils/100 WBC (Bld) 2.8 % Normal 0.0 - 6.0 % Workflow SS Erythrocyte distribution width (RBC) [Ratio] 14.3 % Normal 11.5 - 15.5 % Workflow SS GFR/1.73 sq M.predicted among blacks MDRD (S/P/Bld) [Vol rate/Area] ml/min/1.73sqm Invalid Interpretation Code Chemistry S Comment on above: Interpretive Data: GFR Population mean for , Non- Americans Ages 20-29 = 116 mL/min/1.73 sq.m. Ages 30-39 = 107 mL/min/1.73 sq.m. Ages 40-49 = 99 mL/min/1.73 sq.m. Ages 50-59 = 93 mL/min/1.73 sq.m. Ages 60-69 = 85 mL/min/1.73 sq.m. Ages 70+ = 75 mL/min/1.73 sq.m. Chronic Kidney Disease: Less than 60 mL/min/1.73 square meters End Stage Renal Disease: Less than 15 mL/min/1.73 square meters GFR/1.73 sq M.predicted among non-blacks MDRD (S/P/Bld) [Vol rate/Area] ml/min/1.73sqm Invalid Interpretation Code [employer] Chemistry S Comment on above: Interpretive Data: GFR Population mean for , Non- Americans Ages 20-29 = 116 mL/min/1.73 sq.m. Ages 30-39 = 107 mL/min/1.73 sq.m. Ages 40-49 = 99 mL/min/1.73 sq.m. Ages 50-59 = 93 mL/min/1.73 sq.m. Ages 60-69 = 85 mL/min/1.73 sq.m. Ages 70+ = 75 mL/min/1.73 sq.m. Chronic Kidney Disease: Less than 60 mL/min/1.73 square meters End Stage Renal Disease: Less than 15 mL/min/1.73 square meters Glucose [Mass/Vol] 136 mg/dL High 82 - 115 mg/dL ADM SS Hematocrit (Bld) [Volume fraction] 38.2 % Normal 34.0 - 46.0 % Workflow SS Hemoglobin (Bld) [Mass/Vol] 12.6 G/dL Normal 12.0 - 16.0 G/dL AH Workflow SS Lymphocytes (Bld) [#/Vol] 1.6 103/mcL Normal 0.9 - 4.3 10^3/mcL AH Workflow SS Lymphocytes/100 WBC (Bld) 23.1 % Normal 20.0 - 40.0 % AH Workflow SS MCH (RBC) [Entitic mass] 30.4 pg Normal 27.0 - 33.0 pg AH Workflow SS MCHC 33.0 G/dL Normal 32.0 - 36.0 G/dL AH Workflow SS MCV (RBC) [Entitic vol] 92.0 fL Normal 80.0 - 99.0 fL Workflow SS Monocytes (Bld) [#/Vol] 0.6 103/mcL Normal 0.1 - 1.4 10^3/mcL AH Workflow SS Monocytes/100 WBC (Bld) 9.0 % Normal 2.0 - 13.0 % AH Workflow SS Neutrophils (Bld) [#/Vol] 4.6 103/mcL Normal 2.3 - 8.1 10^3/mcL AH Workflow SS Neutrophils/100 WBC (Bld) 64.5 % Normal 50.0 - 75.0 % AH Workflow SS Platelet mean volume (Bld) [Entitic vol] 8.8 fL Normal 6.6 - 10.5 fL AH Workflow SS Platelets (Bld) [#/Vol] 264 103/mcL Normal 150 - 450 10^3/mcL AH Workflow SS Potassium [Moles/Vol] 4.0 mmol/L Normal 3.5 - 5.0 mEq/L ADM SS RBC (Bld) [#/Vol] 4.15 106/mcL Normal 4.10 - 5.3 0 10^6/mcL AH Workflow SS Sodium [Moles/Vol] 141 mmol/L Normal 136 - 145 mEq/L ADM SS Urea nitrogen [Mass/Vol] 19.0 mg/dL Normal 8.0 - 22.0 mg/dL ADM SS Urea nitrogen/Creatinine [Mass ratio] 28.8 ratio High 10.0 - 22.0 ratio ADM SS WBC (Bld) [#/Vol] 7.1 103/mcL Normal 4.5 - 10.8 10^3/mcL AH Workflow SS MRA HEAD W/O CONTRASTon 11-2 MRA HEAD W/O CONTRAST ORIGINAL HISTORY: Stroke COMPARISON: No TECHNIQUE: 3D [id number] angiography of the head with 3D post acquisition processing and with results displayed in source and volume rendered images. FINDINGS: The study is degraded by motion. Within the limits of the examination no large vessel occlusion is identified. The right vertebral artery is small and incompletely visualized. IMPRESSION: Limited examination. No definite large vessel occlusion Interpreted by: Adeline Arnold MD Preliminary Report By: Adeline Arnold MD Electronically signed By Adeline Arnold MD Dictated Date: 03/12/2023 2:44:26 PM Prelim Date: 03/12/2023 2:49:02 PM Sign Date: 03/12/2023 2:49:02 PM Ordering Provider: [facility]) MRA NECK W/O CONTRASTon 02-15 MRA NECK W/O CONTRAST ORIGINAL HISTORY: Stroke COMPARISON: No TECHNIQUE: 2-D [id number] magnetic resonance angiography of the vessels of the neck, with 3-D post acquisition processing and with results displayed in source images and volume rendered images. Stenosis is calculated using NASCET criteria. FINDINGS: Study is limited by motion. There is questionable mild stenosis at the proximal left internal carotid artery, although this may be due in part to artifact. The left vertebral artery is dominant. Both vertebral artery are patent with antegrade flow. IMPRESSION: Limited examination. Questionable mild stenosis of the proximal left internal carotid artery. Interpreted by: Adeline Arnold MD Preliminary Report By: Adeline Arnold MD Electronically signed By Adeline Arnold MD Dictated Date: 03/12/2023 2:49:13 PM Prelim Date: 03/12/2023 2:50:48 PM Sign Date: 03/12/2023 2:50:48 PM Ordering Provider: [facility]) MRI BRAIN W/O CONTRASTon MRI BRAIN W/O CONTRAST ORIGINAL HISTORY: Stroke, left facial droop, aphasia COMPARISON: 03 May 2021 TECHNIQUE: 1. Sagittal T1-weighted images. 2. Axial T2-weighted and T2*-weighted images. 3. Axial FLAIR images. 4. Axial diffusion-weighted images with ADC map. FINDINGS: The study is limited by motion and positioning. There is a 1 cm focus of restricted diffusion in the lateral left thalamus. There is mild associated T2 hyperintensity. The ventricles and sulci are mildly enlarged. There are no abnormal intra or extra-axial fluid collections. There [id number] punctate and nodular T2 hyperintensities in the cerebral white matter. Dasilva IMPRESSION: Limited examination. 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 Interpreted by: Adeline Arnold MD Preliminary Report By: Adeline Arnold MD Electronically signed By Adeline Arnold MD Dictated Date: 03/12/2023 2:40:59 PM Prelim Date: 03/12/2023 2:42:45 PM Sign Date: 03/12/2023 2:42:45 PM Ordering Provider: TAMIKA Duong [facility] ([place]) .Auto Diffon 03-11-2023 Basophil, Absolute 0.0 10 3/mcL Normal 0.0-0.3 [facility] ([place]) Comment on above: Performed By: #### M DW, TROPHS, ANEU, GFR, CBC, ADIFF, BMP #### [address] [address] Basophils/100 WBC (Bld) 0.7 % Normal 0.0-2.5 [facility] ([place]) Comment on above: Performed By: #### M DW, TROPHS, ANEU, GFR, CBC, ADIFF, BMP #### [address] [address] Eosinophil, Absolute 0.2 10 3/mcL Normal 0.0-0.7 [facility] ([place]) Comment on above: Performed By: #### M DW, TROPHS, ANEU, GFR, CBC, ADIFF, BMP #### [address] [address] Eosinophils/100 WBC (Bld) 2.4 % Normal 0.0-6.0 [facility] ([place]) Comment on above: Performed By: #### M DW, TROPHS, ANEU, GFR, CBC, ADIFF, BMP #### [address] [address] Lymphocyte, Absolute 1.8 10 3/mcL Normal 0.9-4.3 [facility] ([place]) Comment on above: Performed By: #### M DW, TROPHS, ANEU, GFR, CBC, ADIFF, BMP #### [address] [address] Lymphocytes/100 WBC (Bld) 26.2 % Normal 20.0-40.0 [facility] ([place]) Comment on above: Performed By: #### M DW, TROPHS, ANEU, GFR, CBC, ADIFF, BMP #### [address] [address] Monocyte, Absolute 0.7 10 3/mcL Normal 0.1-1.4 [facility] ([place]) Comment on above: Performed By: #### M DW, TROPHS, ANEU, GFR, CBC, ADIFF, BMP #### [address] [address] Monocytes/100 WBC (Bld) 9.8 % Normal 2.0-13.0 [facility] ([place]) Comment on above: Performed By: #### M DW, TROPHS, ANEU, GFR, CBC, ADIFF, BMP #### [address] [address] Neutrophils/100 WBC (Bld) 60.9 % Normal 50.0-75.0 [facility] ([place]) Comment on above: Performed By: #### M DW, TROPHS, ANEU, GFR, CBC, ADIFF, BMP #### [address] [address] .GFRon 03-11-2023 GFR >60 Normal [facility] ([place]) Comment on above: Result Comment: GFR Population mean for , Non- Americans Ages 20-29 = 116 mL/min/1.73 sq.m. Ages 30-39 = 107 mL/min/1.73 sq.m. Ages 40-49 = 99 mL/min/1.73 sq.m. Ages 50-59 = 93 mL/min/1.73 sq.m. Ages 60-69 = 85 mL/min/1.73 sq.m. Ages 70+ = 75 mL/min/1.73 sq.m. Chronic Kidney Disease: Less than 60 mL/min/1.73 square meters End Stage Renal Disease: Less than 15 mL/min/1.73 square meters Performed By: #### M DW, TROPHS, ANEU, GFR, CBC, ADIFF, BMP #### [address] [address] GFR Non- >60 Normal [facility] ([place]) Comment on above: Result Comment: GFR Population mean for , Non- Americans Ages 20-29 = 116 mL/min/1.73 sq.m. Ages 30-39 = 107 mL/min/1.73 sq.m. Ages 40-49 = 99 mL/min/1.73 sq.m. Ages 50-59 = 93 mL/min/1.73 sq.m. Ages 60-69 = 85 mL/min/1.73 sq.m. Ages 70+ = 75 mL/min/1.73 sq.m. Chronic Kidney Disease: Less than 60 mL/min/1.73 square meters End Stage Renal Disease: Less than 15 mL/min/1.73 square meters Performed By: #### M DW, TROPHS, ANEU, GFR, CBC, ADIFF, BMP #### [address] [address] .NEUABSon 03-11-2023 Neutrophil, Absolute 4.2 10 3/mcL Normal 2.3-8.1 [facility] ([place]) Comment on above: Performed By: #### M DW, TROPHS, ANEU, GFR, CBC, ADIFF, BMP #### [address] [address] CBCon 03-11-2023 Erythrocyte distribution width (RBC) [Ratio] 13.9 % Normal 11.5-15.5 [facility] ([place]) Comment on above: Performed By: #### M DW, TROPHS, ANEU, GFR, CBC, ADIFF, BMP #### [address] [address] Hematocrit (Bld) [Volume fraction] 36.6 % Normal 34.0-46.0 [facility] ([place]) Comment on above: Performed By: #### M DW, TROPHS, ANEU, GFR, CBC, ADIFF, BMP #### [place] [id number] Hgb 12.5 G/dL Normal 12.0-16.0 [facility] ([place]) Comment on above: Performed By: #### M DW, TROPHS, ANEU, GFR, CBC, ADIFF, BMP #### [address] [address] MCH (RBC) [Entitic mass] 31.0 pg Normal 27.0-33.0 [facility] ([place]) Comment on above: Performed By: #### M DW, TROPHS, ANEU, GFR, CBC, ADIFF, BMP #### [address] [address] MCHC 34.0 G/dL Normal 32.0-36.0 [facility] ([place]) Comment on above: Performed By: #### M DW, TROPHS, ANEU, GFR, CBC, ADIFF, BMP #### [address] [address] MCV (RBC) [Entitic vol] 91.1 fL Normal 80.0-99.0 [facility] ([place]) Comment on above: Performed By: #### M DW, TROPHS, ANEU, GFR, CBC, ADIFF, BMP #### [address] [address] Platelet 261 10 3/mcL Normal 150-450 [facility] ([place]) Comment on above: Performed By: #### M DW, TROPHS, ANEU, GFR, CBC, ADIFF, BMP #### [address] [address] Platelet mean volume (Bld) [Entitic vol] 8.8 fL Normal 6.6-10.5 [facility] ([place]) Comment on above: Performed By: #### M DW, TROPHS, ANEU, GFR, CBC, ADIFF, BMP #### [address] [address] RBC 4.02 10 6/mcL Low 4.10-5.30 [facility] ([place]) Comment on above: Performed By: #### M DW, TROPHS, ANEU, GFR, CBC, ADIFF, BMP #### [address] [address] WBC 6.9 10 3/mcL Normal 4.5-10.8 [facility] ([place]) Comment on above: Performed By: #### M DW, TROPHS, ANEU, GFR, CBC, ADIFF, BMP #### [address] [address] CMPon 03-11-2023 Albumin Level 3.0 G/dL Low 3.2-4.8 [facility] ([place]) Comment on above: Performed By: #### M DW, TROPHS, ANEU, GFR, CBC, ADIFF, BMP #### [address] [address] Albumin/Globulin [Mass ratio] 1.1 {ratio} Normal 0.9-1.6 [facility] ([place]) Comment on above: Performed By: #### M DW, TROPHS, ANEU, GFR, CBC, ADIFF, BMP #### [address] [address] ALP [Catalytic activity/Vol] 73 U/L Normal 38-126 [facility] ([place]) Comment on above: Performed By: #### M DW, TROPHS, ANEU, GFR, CBC, ADIFF, BMP #### [address] [address] ALT [Catalytic activity/Vol] 12 U/L Normal 10-49 [facility] ([place]) Comment on above: Performed By: #### M DW, TROPHS, ANEU, GFR, CBC, ADIFF, BMP #### [address] [address] AST [Catalytic activity/Vol] 17 U/L Normal 8-34 [facility] ([place]) Comment on above: Performed By: #### M DW, TROPHS, ANEU, GFR, CBC, ADIFF, BMP #### [address] [address] Bili Total 0.40 mg/dL Normal 0.20-1.20 [facility] ([place]) Comment on above: Result Comment: Use of this assay is not recommended for patients undergoing treatment with eltrombopag due to the potential for falsely elevated results. Performed By: #### M DW, TROPHS, ANEU, GFR, CBC, ADIFF, BMP #### [address] [address] BUN/Creatinine Ratio 30.4 ratio High 10.0-22.0 [facility] ([place]) Comment on above: Performed By: #### M DW, TROPHS, ANEU, GFR, CBC, ADIFF, BMP #### [address] [address] Calcium [Mass/Vol] 9.1 mg/dL Normal 8.7-10.4 [facility] ([place]) Comment on above: Performed By: #### M DW, TROPHS, ANEU, GFR, CBC, ADIFF, BMP #### [address] [address] Chloride [Moles/Vol] 110 mmol/L Normal 98-110 [facility] ([place]) Comment on above: Performed By: #### M DW, TROPHS, ANEU, GFR, CBC, ADIFF, BMP #### [address] [address] CO2 [Moles/Vol] 26 mmol/L Normal 22-32 [facility] ([place]) Comment on above: Performed By: #### M DW, TROPHS, ANEU, GFR, CBC, ADIFF, BMP #### [address] [address] Creatinine [Mass/Vol] 0.69 mg/dL Normal 0.50-1.20 [facility] ([place]) Comment on above: Performed By: #### M DW, TROPHS, ANEU, GFR, CBC, ADIFF, BMP #### [address] [address] Electrolyte Balance 5.0 mEq/L Normal 4.0-15.0 [facility] ([place]) Comment on above: Performed By: #### M DW, TROPHS, ANEU, GFR, CBC, ADIFF, BMP #### [address] [address] Globulin 2.7 G/dL Normal 1.5-3.8 [facility] ([place]) Comment on above: Performed By: #### M DW, TROPHS, ANEU, GFR, CBC, ADIFF, BMP #### [address] [address] Glucose [Mass/Vol] 82 mg/dL Normal 82-115 [facility] ([place]) Comment on above: Performed By: #### M DW, TROPHS, ANEU, GFR, CBC, ADIFF, BMP #### [address] [address] Potassium [Moles/Vol] 4.0 mmol/L Normal 3.5-5.0 [facility] ([place]) Comment on above: Performed By: #### M DW, TROPHS, ANEU, GFR, CBC, ADIFF, BMP #### [address] [address] Sodium [Moles/Vol] 141 mmol/L Normal 136-145 [facility] ([place]) Comment on above: Performed By: #### M DW, TROPHS, ANEU, GFR, CBC, ADIFF, BMP #### [address] [address] Total Protein 5.7 G/dL Normal 5.7-8.2 [facility] ([place]) Comment on above: Result Comment: No te - New Reference Range in effect 19 Performed By: #### M DW, TROPHS, ANEU, GFR, CBC, ADIFF, BMP #### [address] [address] Urea nitrogen [Mass/Vol] 21.0 mg/dL Normal 8.0-22.0 [facility] ([place]) Comment on above: Performed By: #### M DW, TROPHS, ANEU, GFR, CBC, ADIFF, BMP #### [address] [address] LABORATORYOrdered By: SYSTEM SYSTEM on 03-11-2023 Albumin BCP dye [Mass/Vol] 3.0 G/dL Low 3.2 - 4.8 G/dL ADM SS Albumin/Globulin [Mass ratio] 1.1 {ratio} Normal 0.9 - 1.6 ratio ADM SS ALP [Catalytic activity/Vol] 73 U/L Normal 38 - 126 U/L ADM SS ALT No additional P-5'-P [Catalytic activity/Vol] 12 U/L Normal 10 - 49 U/L ADM SS AST [Catalytic activity/Vol] 17 U/L Normal 8 - 34 U/L ADM SS Basophils (Bld) [#/Vol] 0.0 103/mcL Normal 0.0 - 0.3 10^3/mcL Workflow SS Basophils/100 WBC (Bld) 0.7 % Normal 0.0 - 2.5 % Workflow SS Bilirubin [Mass/Vol] 0.40 mg/dL Normal 0.20 - 1.20 mg/dL ADM SS Comment on above: Interpretive Data: U se of this assay is not recommended for patients undergoing treatment with eltrombopag due to the potential for falsely elevated results. Calcium [Mass/Vol] 9.1 mg/dL Normal 8.7 - 10. 4 mg/dL ADM SS Chloride [Moles/Vol] 110 mmol/L Normal 98 - 11 0 mEq/L ADM SS CO2 [Moles/Vol] 26 mmol/L Normal 22 - 32 mEq/L ADM SS Creatinine [Mass/Vol] 0.69 mg/dL Normal 0.50 - 1.20 mg/dL ADM SS Electrolyte Balance 5.0 mEq/L Normal 4.0 - 15 .0 mEq/L ADM SS Eosinophils (Bld) [#/Vol] 0.2 103/mcL Normal 0.0 - 0.7 10^3/mcL Workflow SS Eosinophils/100 WBC (Bld) 2.4 % Normal 0.0 - 6.0 % Workflow SS Erythrocyte distribution width (RBC) [Ratio] 13.9 % Normal 11.5 - 15.5 % Workflow SS GFR/1.73 sq M.predicted among blacks MDRD (S/P/Bld) [Vol rate/Area] ml/min/1.73sqm Invalid Interpretation Code Chemistry S Comment on above: Interpretive Data: GFR Population mean for , Non- Americans Ages 20-29 = 116 mL/min/1.73 sq.m. Ages 30-39 = 107 mL/min/1.73 sq.m. Ages 40-49 = 99 mL/min/1.73 sq.m. Ages 50-59 = 93 mL/min/1.73 sq.m. Ages 60-69 = 85 mL/min/1.73 sq.m. Ages 70+ = 75 mL/min/1.73 sq.m. Chronic Kidney Disease: Less than 60 mL/min/1.73 square meters End Stage Renal Disease: Less than 15 mL/min/1.73 square meters GFR/1.73 sq M.predicted among non-blacks MDRD (S/P/Bld) [Vol rate/Area] ml/min/1.73sqm Invalid Interpretation Code Chemistry S Comment on above: Interpretive Data: GFR Population mean for , Non- Americans Ages 20-29 = 116 mL/min/1.73 sq.m. Ages 30-39 = 107 mL/min/1.73 sq.m. Ages 40-49 = 99 mL/min/1.73 sq.m. Ages 50-59 = 93 mL/min/1.73 sq.m. Ages 60-69 = 85 mL/min/1.73 sq.m. Ages 70+ = 75 mL/min/1.73 sq.m. Chronic Kidney Disease: Less than 60 mL/min/1.73 square meters End Stage Renal Disease: Less than 15 mL/min/1.73 square meters Globulin 2.7 G/dL Normal 1.5 - 3.8 G/dL ADM SS Glucose [Mass/Vol] 82 mg/dL Normal 82 - 115 mg/dL ADM SS Hematocrit (Bld) [Volume fraction] 36.6 % Normal 34.0 - 46.0 % AH Workflow SS Hemoglobin (Bld) [Mass/Vol] 12.5 G/dL Normal 12.0 - 16.0 G/dL AH Workflow SS Lymphocytes (Bld) [#/Vol] 1.8 103/mcL Normal 0.9 - 4.3 10^3/mcL AH Workflow SS Lymphocytes/100 WBC (Bld) 26.2 % Normal 20.0 - 40.0 % AH Workflow SS MCH (RBC) [Entitic mass] 31.0 pg Normal 27.0 - 33.0 pg AH Workflow SS MCHC 34.0 G/dL Normal 32.0 - 36.0 G/dL AH Workflow SS MCV (RBC) [Entitic vol] 91.1 fL Normal 80.0 - 99.0 fL AH Workflow SS Monocytes (Bld) [#/Vol] 0.7 103/mcL Normal 0.1 - 1.4 10^3/mcL AH Workflow SS Monocytes/100 WBC (Bld) 9.8 % Normal 2.0 - 13.0 % AH Workflow SS Neutrophils (Bld) [#/Vol] 4.2 103/mcL Normal 2.3 - 8.1 10^3/mcL AH Workflow SS Neutrophils/100 WBC (Bld) 60.9 % Normal 50.0 - 75.0 % AH Workflow SS Platelet mean volume (Bld) [Entitic vol] 8.8 fL Normal 6.6 - 10.5 fL AH Workflow SS Platelets (Bld) [#/Vol] 261 103/mcL Normal 150 - 450 10^3/mcL AH Workflow SS Potassium [Moles/Vol] 4.0 mmol/L Normal 3.5 - 5.0 mEq/L ADM SS Protein [Mass/Vol] 5.7 G/dL Normal 5.7 - 8.2 G/dL ADM SS Comment on above: Interpretive Data: * *Note - New Reference Range in effect 19 RBC (Bld) [#/Vol] 4.02 106/mcL Low 4.10 - 5.3 0 10^6/mcL AH Workflow SS Sodium [Moles/Vol] 141 mmol/L Normal 136 - 145 mEq/L ADM SS Urea nitrogen [Mass/Vol] 21.0 mg/dL Normal 8.0 - 22.0 mg/dL ADM SS Urea nitrogen/Creatinine [Mass ratio] 30.4 ratio High 10.0 - 22.0 ratio AH ADM SS WBC (Bld) [#/Vol] 6.9 103/mcL Normal 4.5 - 10.8 10^3/mcL AH Workflow SS Troponin I.cardiac DL <= 0.01 ng/mL [Mass/Vol] 3.09 ng/L Normal 0.00 - 34.00 ng/L ADM SS LABORATORYOrdered By: Jesusita Zambrano on 03-11-2023 Cholesterol [Mass/Vol] 208 mg/dL High 50 - 199 mg/dL ADM SS Comment on above: Interpretive Data: C holesterol Reference Interval: Less than 200 Desirable 200-239 Borderline high risk 240 and above High risk Cholesterol in HDL [Mass/Vol] 48 mg/dL Normal 40 - 59 mg/dL ADM SS Cholesterol in LDL [Mass/Vol] 146 mg/dL High 0 - 129 mg/dL ADM SS Triglyceride [Mass/Vol] 68 mg/dL Normal 3 - 149 mg/dL ADM SS LIPIDon 03-11-2023 Cholesterol [Mass/Vol] 208 mg/dL High 50-199 [facility] ([place]) Comment on above: Result Comment: Chol esterol Reference Interval: Less than 200 Desirable 200-239 Borderline high risk 240 and above High risk Performed By: #### M DW, TROPHS, ANEU, GFR, CBC, ADIFF, BMP #### [address] [address] Cholesterol in HDL [Mass/Vol] 48 mg/dL Normal 40-59 [facility] ([place]) Comment on above: Performed By: #### M DW, TROPHS, ANEU, GFR, CBC, ADIFF, BMP #### [address] [address] Cholesterol in LDL [Mass/Vol] 146 mg/dL High 0-129 [facility] ([place]) Comment on above: Performed By: #### M DW, TROPHS, ANEU, GFR, CBC, ADIFF, BMP #### [address] [address] Triglyceride [Mass/Vol] 68 mg/dL Normal 3-149 [facility] ([place]) Comment on above: Performed By: #### M DW, TROPHS, ANEU, GFR, CBC, ADIFF, BMP #### [address] [address] TROPHSon 03-11-2023 Troponin I High Sensitivity 3.09 ng/L Normal 0.00-34.00 [facility] ([place]) Comment on above: Performed By: #### M DW, TROPHS, ANEU, GFR, CBC, ADIFF, BMP #### [address] [address] .Auto Diffon 03-10-2023 Basophil, Absolute 0.0 10 3/mcL Normal 0.0-0.2 [facility] ([place]) Comment on above: Performed By: #### M DW, TROPHS, ANEU, GFR, CBC, ADIFF, BMP #### [address] [address] Basophils/100 WBC (Bld) 0.6 % Normal 0.0-2.5 [facility] ([place]) Comment on above: Performed By: #### M DW, TROPHS, ANEU, GFR, CBC, ADIFF, BMP #### [address] [address] Eosinophil, Absolute 0.1 10 3/mcL Normal 0.0-0.4 [facility] ([place]) Comment on above: Performed By: #### M DW, TROPHS, ANEU, GFR, CBC, ADIFF, BMP #### [address] [address] Eosinophils/100 WBC (Bld) 1.7 % Normal 0.0-7.0 [facility] ([place]) Comment on above: Performed By: #### M DW, TROPHS, ANEU, GFR, CBC, ADIFF, BMP #### [address] [address] Lymphocyte, Absolute 1.1 10 3/mcL Normal 0.8-3.9 [facility] ([place]) Comment on above: Performed By: #### M DW, TROPHS, ANEU, GFR, CBC, ADIFF, BMP #### [address] [address] Lymphocytes/100 WBC (Bld) 18.0 % Normal 10.0-50.0 [facility] ([place]) Comment on above: Performed By: #### M DW, TROPHS, ANEU, GFR, CBC, ADIFF, BMP #### [address] [address] Monocyte, Absolute 0.4 10 3/mcL Normal 0.2-1.0 [facility] ([place]) Comment on above: Performed By: #### M DW, TROPHS, ANEU, GFR, CBC, ADIFF, BMP #### [address] [address] Monocytes/100 WBC (Bld) 7.1 % Normal 1.7-13.0 [facility] ([place]) Comment on above: Performed By: #### M DW, TROPHS, ANEU, GFR, CBC, ADIFF, BMP #### [address] [address] Neutrophils/100 WBC (Bld) 72.6 % Normal 37.0-80.0 [facility] ([place]) Comment on above: Performed By: #### M DW, TROPHS, ANEU, GFR, CBC, ADIFF, BMP #### [address] [address] .GFRon 03-10-2023 GFR Non- 64 ml/min/1.73sqm Normal [facility] ([place]) Comment on above: Result Comment: GFR Population mean for , Non- Americans Ages 20-29 = 116 mL/min/1.73 sq.m. Ages 30-39 = 107 mL/min/1.73 sq.m. Ages 40-49 = 99 mL/min/1.73 sq.m. Ages 50-59 = 93 mL/min/1.73 sq.m. Ages 60-69 = 85 mL/min/1.73 sq.m. Ages 70+ = 75 mL/min/1.73 sq.m. Chronic Kidney Disease: Less than 60 mL/min/1.73 square meters End Stage Renal Disease: Less than 15 mL/min/1.73 square meters Performed By: #### M DW, TROPHS, ANEU, GFR, CBC, ADIFF, BMP #### [address] [address] GFR 78 ml/min/1.73sqm Normal [facility] ([place]) Comment on above: Result Comment: GFR Population mean for , Non- Americans Ages 20-29 = 116 mL/min/1.73 sq.m. Ages 30-39 = 107 mL/min/1.73 sq.m. Ages 40-49 = 99 mL/min/1.73 sq.m. Ages 50-59 = 93 mL/min/1.73 sq.m. Ages 60-69 = 85 mL/min/1.73 sq.m. Ages 70+ = 75 mL/min/1.73 sq.m. Chronic Kidney Disease: Less than 60 mL/min/1.73 square meters End Stage Renal Disease: Less than 15 mL/min/1.73 square meters Performed By: #### M DW, TROPHS, ANEU, GFR, CBC, ADIFF, BMP #### [place] [id number] .MDWon 03-10-2023 Monocyte Distribution Width 19.87 Normal 0.00-20.00 [facility] ([place]) Comment on above: Result Comment: For ED adult patients suspected of sepsis, MDW<=20.0 does not rule out sepsis or risk of sepsis Performed By: #### M DW, TROPHS, ANEU, GFR, CBC, ADIFF, BMP #### [place] [address] .NEUABSon 03-10-2023 Neutrophil, Absolute 4.4 10 3/mcL Normal 2.9-6.2 [facility] ([place]) Comment on above: Performed By: #### M DW, TROPHS, ANEU, GFR, CBC, ADIFF, BMP #### [place] [address] .Urinalysis Microscopic (AO) on 03-10-2023 UA Bacteria Trace Abnormal [facility] ([place]) Comment on above: Performed By: #### U A, UAMICAO #### [place] [address] UA RBC None Seen Normal None Seen [facility] ([place]) Comment on above: Performed By: #### U A, UAMICAO #### [place] [phone] UA Squam Epithelial 0-5 Abnormal None Seen [facility] ([place]) Comment on above: Performed By: #### U A, UAMICAO #### [place] [phone] UA WBC LOADED Abnormal None Seen [facility] ([place]) Comment on above: Performed By: #### U A, UAMICAO #### [place] [id number] A1Con 03-10-2023 HbA1c (Bld) [Mass fraction] 9.6 % High 4.0-6.0 [facility] ([place]) Comment on above: Performed By: #### M DW, TROPHS, ANEU, GFR, CBC, ADIFF, BMP #### [place] [address] CBCon 03-10-2023 Erythrocyte distribution width (RBC) [Ratio] 13.8 % Normal 11.5-14.5 [facility] ([place]) Comment on above: Performed By: #### M DW, TROPHS, ANEU, GFR, CBC, ADIFF, BMP #### [place] [address] Hematocrit (Bld) [Volume fraction] 40.8 % Normal 37.0-47.0 [facility] ([place]) Comment on above: Performed By: #### M DW, TROPHS, ANEU, GFR, CBC, ADIFF, BMP #### [place] [address] Hgb 13.6 G/dL Normal 12.0-16.0 [facility] ([place]) Comment on above: Performed By: #### M DW, TROPHS, ANEU, GFR, CBC, ADIFF, BMP #### [place] [address] MCH (RBC) [Entitic mass] 30.2 pg Normal 27.0-31.2 [facility] ([place]) Comment on above: Performed By: #### M DW, TROPHS, ANEU, GFR, CBC, ADIFF, BMP #### [place] [address] MCHC 33.3 G/dL Normal 33.0-37.0 [facility] ([place] Comment on above: Performed By: #### M DW, TROPHS, ANEU, GFR, CBC, ADIFF, BMP #### [address] [place] [address] MCV (RBC) [Entitic vol] 90.6 fL Normal 80.0-94.0 [facility] ([place]) Comment on above: Performed By: #### M DW, TROPHS, ANEU, GFR, CBC, ADIFF, BMP #### [address] [address] Platelet 267 10 3/mcL Normal 130-400 [facility] ([place] Comment on above: Performed By: #### M DW, TROPHS, ANEU, GFR, CBC, ADIFF, BMP #### [address] [address] Platelet mean volume (Bld) [Entitic vol] 8.5 fL Normal 7.4-10.4 [facility] ([place] Comment on above: Performed By: #### M DW, TROPHS, ANEU, GFR, CBC, ADIFF, BMP #### [place] [phone] RBC 4.51 10 6/mcL Normal 4.20-5.40 [facility] ([place] Comment on above: Performed By: #### M DW, TROPHS, ANEU, GFR, CBC, ADIFF, BMP #### [address] [address] WBC 6.0 10 3/mcL Normal 4.6-10.8 [facility] ([place] Comment on above: Performed By: #### M DW, TROPHS, ANEU, GFR, CBC, ADIFF, BMP #### [address] [address] CK-Jackie 03-10-2023 Relative Index Not Valid Normal 0.0-4.5 [facility] ([place]) Comment on above: Result Comment: CPK <185 invalidates relative index Performed By: #### ROYAL Pozo #### [address] [address] CK [Catalytic activity/Vol] 54 U/L Normal 7-185 [facility] ([place]) Comment on above: Performed By: #### ROYAL Pozo #### [address] [address] CKMBMon 03-10-2023 CK.MB [Mass/Vol] Not performed Normal 0.00-5.00 [facility] ([place]) Comment on above: Result Comment: CKMB result not performed when CPK < 75 Note - New Reference Range in effect 19 Performed By: #### U A UAMICAO #### [address] [address] CMPon 03-10-2023 Albumin Level 3.7 G/dL Normal 3.4-4.8 [facility] ([place]) Comment on above: Performed By: #### M DW, TROPHS, ANEU, GFR, CBC, ADIFF, BMP #### [address] [address] Albumin/Globulin [Mass ratio] 1.1 {ratio} Normal 1.1-2.5 [facility] ([place]) Comment on above: Performed By: #### M DW, TROPHS, ANEU, GFR, CBC, ADIFF, BMP #### [address] [address] ALP [Catalytic activity/Vol] 100 U/L Normal 40-135 [facility] ([place]) Comment on above: Performed By: #### M DW, TROPHS, ANEU, GFR, CBC, ADIFF, BMP #### [address] [address] ALT [Catalytic activity/Vol] 21 U/L Normal 14-59 [facility] ([place] Comment on above: Performed By: #### M DW, TROPHS, ANEU, GFR, CBC, ADIFF, BMP #### [address] [address] AST [Catalytic activity/Vol] 18 U/L Normal 10-40 [facility] ([place] Comment on above: Performed By: #### M DW, TROPHS, ANEU, GFR, CBC, ADIFF, BMP #### [address] [address] Bili Total 0.8 mg/dL Normal 0.2-1.0 [facility] ([place]) Comment on above: Result Comment: Use of this assay is not recommended for patients undergoing treatment with eltrombopag due to the potential for falsely elevated results. Performed By: #### M DW, TROPHS, ANEU, GFR, CBC, ADIFF, BMP #### [address] [address] BUN/Creatinine Ratio 20 ratio Normal 7-27 [facility] ([place] Comment on above: Performed By: #### M DW, TROPHS, ANEU, GFR, CBC, ADIFF, BMP #### [address] [address] Calcium [Mass/Vol] 9.1 mg/dL Normal 8.4-10.2 [facility] ([place]) Comment on above: Performed By: #### M DW, TROPHS, ANEU, GFR, CBC, ADIFF, BMP #### [place] [phone] Chloride [Moles/Vol] 102 mmol/L Normal 98-107 [facility] ([place] Comment on above: Performed By: #### M DW, TROPHS, ANEU, GFR, CBC, ADIFF, BMP #### [address] [address] CO2 [Moles/Vol] 26 mmol/L Normal 23-31 [facility] ([place] Comment on above: Performed By: #### M DW, TROPHS, ANEU, GFR, CBC, ADIFF, BMP #### [address] [address] Creatinine [Mass/Vol] 0.84 mg/dL Normal 0.55-1.02 [facility] ([place] Comment on above: Performed By: #### M DW, TROPHS, ANEU, GFR, CBC, ADIFF, BMP #### [address] [address] Electrolyte Balance 10.0 mEq/L Normal 4.0-15.0 [facility] ([place]) Comment on above: Performed By: #### M DW, TROPHS, ANEU, GFR, CBC, ADIFF, BMP #### [address] [address] Globulin 3.5 G/dL Normal [facility] ([place]) Comment on above: Performed By: #### M DW, TROPHS, ANEU, GFR, CBC, ADIFF, BMP #### [address] [address] Glucose [Mass/Vol] 238 mg/dL High 83-110 [facility] ([place] Comment on above: Performed By: #### M DW, TROPHS, ANEU, GFR, CBC, ADIFF, BMP #### [address] [address] Potassium [Moles/Vol] 4.1 mmol/L Normal 3.5-5.1 [facility] ([place] Comment on above: Performed By: #### M DW, TROPHS, ANEU, GFR, CBC, ADIFF, BMP #### [address] [address] Sodium [Moles/Vol] 138 mmol/L Normal 136-145 [facility] ([place] Comment on above: Performed By: #### M DW, TROPHS, ANEU, GFR, CBC, ADIFF, BMP #### [address] [address] Total Protein 7.2 G/dL Normal 6.4-8.2 [facility] ([place] Comment on above: Performed By: #### M DW, TROPHS, ANEU, GFR, CBC, ADIFF, BMP #### [address] [address] Urea nitrogen [Mass/Vol] 17 mg/dL Normal 7-18 [facility] ([place]) Comment on above: Performed By: #### M DW, TROPHS, ANEU, GFR, CBC, ADIFF, BMP #### [address] [id number] CRPon 03-10-2023 C-Reactive Protein 0.1 mg/dL Normal 0.0-0.3 [facility] ([place]) Comment on above: Performed By: #### M DW, TROPHS, ANEU, GFR, CBC, ADIFF, BMP #### [id number] [place], [place] [address] CT HEAD OR BRAIN W/O CONTRAS Ton 03-10-2023 CT HEAD OR BRAIN W/O CONTRAST ORIGINAL EXAMINATION: CT HEAD TECHNIQUE: Axial CT images from skull base to vertex without IV contrast. This exam was performed according to our departmental dose optimization program, and includes the following measures where applicable: automated exposure control, adjustment of the mAs and/or kVp according to patient size and/or exam, and an iterative reconstruction algorithm. COMPARISON: CT head 01/26/2023 HISTORY: ORDERING SYSTEM PROVIDED HISTORY: Reason for Exam: dizziness FINDINGS: Parenchyma: No acute intracranial hemorrhage, midline shift, mass effect or acute ischemic infarct is demonstrated. The dasilva-white matter junctions are preserved. No space occupying intra-axial masses or extra-axial fluid collections are seen. Mild parenchymal volume loss most pronounced in the bilateral parietal lobes is noted. Scattered areas of decreased attenuation are identified in the subcortical, periventricular, and deep white matter likely reflecting mild chronic microvascular white matter ischemic disease. 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 Ventricles: No evidence of hydrocephalus or ventricular effacement. The ventricles and sulci are proportionate. Vessels: Atherosclerotic calcifications of the distal left vertebral and bilateral internal carotid arteries. Orbits: Unremarkable. Post bilateral lens implant surgery Calvarium: Unremarkable. Paranasal sinuses: Mild mucosal thickening of the right maxillary sinus. Mastoid sinuses: Clear. IMPRESSION: No acute intracranial pathology. Interpreted by: Oskar Miguel MD Preliminary Report By: Oskar Miguel MD Electronically signed By Oskar Miguel MD Dictated Date: 03/10/2023 10:58:01 AM Prelim Date: 03/10/2023 11:00:16 AM Sign Date: 03/10/2023 11:00:16 AM Ordering Provider: REGINALD MCCALLUM [facility] ([place]) LABORATORYOrdered By: SYSTEM SYSTEM on 03-10-2023 CK [Catalytic activity/Vol] 54 U/L Normal 7 - 185 U/L AH ADM SS HbA1c (Bld) [Mass fraction] 9.6 % High 4.0 - 6.0 % AH Auto Chem SS Magnesium [Mass/Vol] 1.7 mg/dL Normal 1.6 - 2 .4 mg/dL AH ADM SS Phosphate [Mass/Vol] 3.5 mg/dL Normal 2.4 - 5 .1 mg/dL AH ADM SS Comment on above: Interpretive Data: * *Note - New Reference Range in effect 19 Troponin I.cardiac DL <= 0.01 ng/mL [Mass/Vol] 4.93 ng/L Normal 0.00 - 34.00 ng/L AH ADM SS Albumin BCP dye [Mass/Vol] 3.7 G/dL Normal 3.4 - 4.8 G/dL AO ADM SS Albumin/Globulin [Mass ratio] 1.1 {ratio} Normal 1.1 - 2.5 ratio AO ADM SS ALP [Catalytic activity/Vol] 100 U/L Normal 40 - 135 U/L AO ADM SS ALT With P-5'-P [Catalytic activity/Vol] 21 U/L Normal 14 - 59 U/L AO ADM SS AST With P-5'-P [Catalytic activity/Vol] 18 U/L Normal 10 - 40 U/L AO ADM SS Basophil, Absolute 0.0 103/mcL Normal 0.0 - 0.2 10^3/mcL AO Workflow SS Basophils/100 WBC (Bld) 0.6 % Normal 0.0 - 2.5 % AO Workflow SS Bilirubin [Mass/Vol] 0.8 mg/dL Normal 0.2 - 1 .0 mg/dL AO ADM SS Comment on above: Interpretive Data: U se of this assay is not recommended for patients undergoing treatment with eltrombopag due to the potential for falsely elevated results. Calcium [Mass/Vol] 9.1 mg/dL Normal 8.4 - 10. 2 mg/dL AO ADM SS Chloride [Moles/Vol] 102 mmol/L Normal 98 - 10 7 mmol/L AO ADM SS CO2 [Moles/Vol] 26 mmol/L Normal 23 - 31 mmol/L AO ADM SS Creatinine [Mass/Vol] 0.84 mg/dL Normal 0.55 - 1.02 mg/dL AO ADM SS CRP [Mass/Vol] 0.1 mg/dL Normal 0.0 - 0.3 mg/dL AO ADM SS Electrolyte Balance 10.0 mEq/L Normal 4.0 - 15 .0 mEq/L AO ADM SS Eosinophil, Absolute 0.1 103/mcL Normal 0.0 - 0 .4 10^3/mcL AO Workflow SS Eosinophils/100 WBC (Bld) 1.7 % Normal 0.0 - 7.0 % AO Workflow SS Erythrocyte distribution width (RBC) [Ratio] 13.8 % Normal 11.5 - 14.5 % AO Workflow SS GFR/1.73 sq M.predicted among blacks MDRD (S/P/Bld) [Vol rate/Area] 78 ml/min/1.73sqm Invalid Interpretation Code AO Chemistry S Comment on above: Interpretive Data: GFR Population mean for , Non- Americans Ages 20-29 = 116 mL/min/1.73 sq.m. Ages 30-39 = 107 mL/min/1.73 sq.m. Ages 40-49 = 99 mL/min/1.73 sq.m. Ages 50-59 = 93 mL/min/1.73 sq.m. Ages 60-69 = 85 mL/min/1.73 sq.m. Ages 70+ = 75 mL/min/1.73 sq.m. Chronic Kidney Disease: Less than 60 mL/min/1.73 square meters End Stage Renal Disease: Less than 15 mL/min/1.73 square meters GFR/1.73 sq M.predicted among non-blacks MDRD (S/P/Bld) [Vol rate/Area] 64 ml/min/1.73sqm Invalid Interpretation Code AO Chemistry S Comment on above: Interpretive Data: GFR Population mean for , Non- Americans Ages 20-29 = 116 mL/min/1.73 sq.m. Ages 30-39 = 107 mL/min/1.73 sq.m. Ages 40-49 = 99 mL/min/1.73 sq.m. Ages 50-59 = 93 mL/min/1.73 sq.m. Ages 60-69 = 85 mL/min/1.73 sq.m. Ages 70+ = 75 mL/min/1.73 sq.m. Chronic Kidney Disease: Less than 60 mL/min/1.73 square meters End Stage Renal Disease: Less than 15 mL/min/1.73 square meters Globulin 3.5 G/dL Invalid Interpretation Code AO ADM SS Glucose [Mass/Vol] 238 mg/dL High 83 - 110 mg/dL AO ADM SS Hematocrit (Bld) [Volume fraction] 40.8 % Normal 37.0 - 47.0 % AO Workflow SS Hemoglobin (Bld) [Mass/Vol] 13.6 G/dL Normal 12.0 - 16.0 G/dL AO Workflow SS Lymphocyte, Absolute 1.1 103/mcL Normal 0.8 - 3 .9 10^3/mcL AO Workflow SS Lymphocytes/100 WBC (Bld) 18.0 % Normal 10.0 - 50.0 % AO Workflow SS Magnesium [Mass/Vol] 1.8 mg/dL Normal 1.8 - 2 .4 mg/dL AO ADM SS MCH (RBC) [Entitic mass] 30.2 pg Normal 27.0 - 31.2 pg AO Workflow SS MCHC 33.3 G/dL Normal 33.0 - 37.0 G/dL AO Workflow SS MCV (RBC) [Entitic vol] 90.6 fL Normal 80.0 - 94.0 fL AO Workflow SS Monocyte distribution width Auto (Bld) [Entitic vol] 19.87 1 Normal 0.00 - 20.00 AO Workflow SS Comment on above: Result Comment: For ED adult patients suspected of sepsis, MDW<=20.0 does not rule out sepsis or risk of sepsis Monocyte, Absolute 0.4 103/mcL Normal 0.2 - 1.0 10^3/mcL AO Workflow SS Monocytes/100 WBC (Bld) 7.1 % Normal 1.7 - 13.0 % AO Workflow SS Neutrophil, Absolute 4.4 103/mcL Normal 2.9 - 6 .2 10^3/mcL AO Workflow SS Neutrophils/100 WBC (Bld) 72.6 % Normal 37.0 - 80.0 % AO Workflow SS Platelet mean volume (Bld) [Entitic vol] 8.5 fL Normal 7.4 - 10.4 fL AO Workflow SS Platelets (Bld) [#/Vol] 267 103/mcL Normal 130 - 400 10^3/mcL AO Workflow SS Potassium [Moles/Vol] 4.1 mmol/L Normal 3.5 - 5.1 mmol/L AO ADM SS Protein [Mass/Vol] 7.2 G/dL Normal 6.4 - 8.2 G/dL AO ADM SS RBC (Bld) [#/Vol] 4.51 106/mcL Normal 4.20 - 5.4 0 10^6/mcL AO Workflow SS Sodium [Moles/Vol] 138 mmol/L Normal 136 - 145 mmol/L AO ADM SS Troponin I.cardiac DL <= 0.01 ng/mL [Mass/Vol] 8.6 ng/L Normal 0.0 - 51.4 ng/L AO ADM SS Urea nitrogen [Mass/Vol] 17 mg/dL Normal 7 - 18 mg/dL AO ADM SS Urea nitrogen/Creatinine [Mass ratio] 20 ratio Normal 7 - 27 ratio AO ADM SS WBC (Bld) [#/Vol] 6.0 103/mcL Normal 4.6 - 10.8 10^3/mcL AO Workflow SS LABORATORYOrdered By: Skylar Sawant on 03-10-2023 CK.MB [Mass/Vol] Not performed Invalid Interpretation Code 0.00 - 5.00 Chemistry S Comment on above: Result Comment: CKMB result not performed when CPK < 75 Interpretive Data: * *Note - New Reference Range in effect 19 Free T4 index Calc [Mass/Vol] Not Valid Invalid Interpretation Code 0.0 - 4.5 Chemistry S Comment on above: Result Comment: CPK <185 invalidates relative index LABORATORYOrdered By: Carmencita Guerrero on 03-10-2023 Appearance (U) Slightly Cloudy *ABN* (03/10/23 11:39 AM) Invalid Interpretation Code Clear AO Auto Urine SS Bacteria LM.HPF (Urine sed) [#/Area] Trace /HPF Invalid Interpretation Code AO Auto Urine SS Bilirubin Ql (U) Negative (03/10/23 11:39 AM) Normal Negative AO Auto Urine SS Color (U) Yellow (03/10/23 11:39 AM) Normal AO Auto Urine SS Glucose Test strip (U) [Mass/Vol] 250 mg/dL Invalid Interpretation Code Negative AO Auto Urine SS Hemoglobin Auto test strip (U) [Mass/Vol] Negative (03/10/23 11:39 AM) Normal Negative AO Auto Urine SS Ketones Ql (U) 15 mg/dL Invalid Interpretation Code Negative AO Auto Urine SS UA Leuk Est Moderate *ABN* (03/10/23 11:39 AM) Invalid Interpretation Code Negative AO Auto Urine SS UA Nitrite Negative (03/10/23 11:39 AM) Normal Negative AO Auto Urine SS UA pH 5.5 (03/10/23 11:39 AM) Normal 5.0 - 8.0 AO Auto Urine SS UA Protein Negative Normal Negative AO Auto Urine SS UA RBC None Seen /HPF Normal None Seen AO Auto Ur ine SS UA Spec Grav 1.015 (03/10/23 11:39 AM) Normal 1.015-1.025 AO Auto Urine SS UA Specimen Type Clean Catch (03/10/23 11:39 AM) Normal AO Auto Urine SS UA Squam Epithelial 0-5 /HPF Invalid Interpretation Code None Seen AO Auto Urine SS UA Urobilinogen 0.2 E.U./dL Normal 0.2-1.0 AO Auto Urine SS WBC LM.HPF (Urine sed) [#/Area] LOADED /HPF Invalid Interpretation Code None Seen AO Auto Urine SS LABORATORYOrdered By: Ermelinda Chi on 03-10-2023 Blood Glucose Testing Reason Routine (03/10/23 9:49 AM) [facility] Glucose [Mass/Vol] 204 mg/dL High 82 - 115 mg/dL [facility] MGon 03-10-2023 Magnesium [Mass/Vol] 1.7 mg/dL Normal 1.6-2.4 [facility] ([place]) Comment on above: Performed By: #### U A UAMICAO #### [address] [address] Magnesium [Mass/Vol] 1.8 mg/dL Normal 1.8-2.4 [facility] ([place]) Comment on above: Performed By: #### M DW, TROPHS, ANEU, GFR, CBC, ADIFF, BMP #### [address] [address] No Panel Informationon 03-10 Microscopic examination of blood, culture Culture has been received in lab and is no growth to date. Routine cultures are held for 5 days. [facility] PHOSon 03-10-2023 Phosphate [Mass/Vol] 3.5 mg/dL Normal 2.4-5.1 [facility] ([place]) Comment on above: Result Comment: No te - New Reference Range in effect 19 Performed By: #### U A, UAMICAO #### [address] [address] [facility] Troponin I High Sensitivity 4.93 ng/L Normal 0.00-34.00 [facility] ([place]) Comment on above: Performed By: #### C KMBM, CKMB, TROPHS, PHOS, MG #### [address] [address] Troponin I High Sensitivity 8.6 ng/L Normal 0.0-51.4 [facility] ([place]) Comment on above: Performed By: #### M DW, TROPHS, ANEU, GFR, CBC, ADIFF, BMP #### [address] [address] UAon 03-10-2023 Color (U) Yellow Normal [facility] ([place]) Comment on above: Performed By: #### U A, UAMICAO #### [address] [address] Glucose (U) [Mass/Vol] 250 mg/dL Abnormal Negative [facility] ([place]) Comment on above: Performed By: #### U A, UAMICAO #### [address] [address] Ketones Ql (U) 15 mg/dL Abnormal Negative [facility] ([place]) Comment on above: Performed By: #### U A, UAMICAO #### [address] [address] UA Appear Slightly Cloudy Abnormal Clear [facility] ([place]) Comment on above: Performed By: #### U A, UAMICAO #### [address] [address] UA Blood Negative Normal Negative [facility] ([place]) Comment on above: Performed By: #### U A, UAMICAO #### [address] [address] UA Leuk Est Moderate Abnormal Negative [facility] ([place]) Comment on above: Performed By: #### U A, UAMICAO #### [address] [address] UA Nitrite Negative Normal Negative [facility] ([place]) Comment on above: Performed By: #### U A, UAMICAO #### [address] [address] UA pH 5.5 Normal 5.0 - 8.0 [facility] ([place]) Comment on above: Performed By: #### U A, UAMICAO #### [address] [address] UA Protein Negative Normal Negative [facility] ([place]) Comment on above: Performed By: #### U A, UAMICAO #### [place] [address] UA Spec Grav 1.015 Normal 1.015-1.025 [facility] ([place]) Comment on above: Performed By: #### U A, UAMICAO #### [place] [address] UA Specimen Type Clean Catch Normal [facility] ([place]) Comment on above: Performed By: #### U A, UAMICAO #### [place] [address] UA Urobilinogen 0.2 E.U./dL Normal 0.2-1.0 [facility] ([place]) Comment on above: Performed By: #### U A, UAMICAO #### [place] [address] Urobilinogen (U) [Mass/Vol] Negative Normal Negative [facility] ([place]) Comment on above: Performed By: #### U A, UAMICAO #### [place] [id number] XR CHEST 1 VIEWon 03-10-2023 XR CHEST 1 VIEW ORIGINAL EXAMINATION: ONE XRAY VIEW OF THE CHEST TECHNIQUE: AP upright COMPARISON: Chest 12/27/2022 HISTORY: ORDERING SYSTEM PROVIDED HISTORY: Reason for Exam: chest pain FINDINGS: Support devices: None Cardiomediastinal: The heart is stable in size. Lungs: Chronic reticular interstitial markings within the bilateral lower lobes. No consolidation, pulmonary edema or a large pleural effusion. Pneumothorax: None Osseous: No acute osseous pathology. Widespread demineralization. Bilateral shoulder arthrosis. Degenerative tearing of the distal right clavicle. IMPRESSION: Stable chest examination. Interpreted by: Oskar Miguel MD Preliminary Report By: Oskar Miguel MD Electronically signed By Oskar Miguel MD Dictated Date: 03/10/2023 10:56:46 AM Prelim Date: 03/10/2023 10:57:58 AM Sign Date: 03/10/2023 10:57:58 AM Ordering Provider: REGINALD MCCALLUM [facility] ([place]) XR SPINE LUMBAR AP/LATon XR SPINE LUMBAR AP/LAT ORIGINAL EXAMINATION: 3 XRAY VIEWS OF THE LUMBAR SPINE02/21/2023 3:18 pm LUMBAR SPINE 2 or 3 VIEWS COMPARISON: 06/10/2021 HISTORY: ORDERING SYSTEM PROVIDED HISTORY: Reason for Exam: lower back pain FINDINGS: Posterior fusion noted from L3 through L5 with associated laminectomy defects. Straightening of the lordotic curvature seen. Marginal disc osteophytes are most prevalent at L2-3. Multilevel facet arthropathy visualized. IMPRESSION: Surgical and degenerative changes are similar to the prior exam. No compression deformities Interpreted by: Fan Santana MD Preliminary Report By: Fan Santana MD Electronically signed By Fan Santana MD Dictated Date: 02/24/2023 10:36:18 AM Prelim Date: 02/24/2023 10:37:20 AM Sign Date: 02/24/2023 10:37:20 AM Ordering Provider: MEY MADDOX [facility] ([place]) XR KNEE THREE VIEWS LEFTon 1 04-25-2022 XR KNEE THREE VIEWS LEFT ORIGINAL EXAMINATION: THREE XRAY VIEWS OF THE LEFT KNEE; THREE XRAY VIEWS OF THE RIGHT KNEE02/21/2023 3:21 pm; 02/21/2023 3:19 pm KNEE 3 VIEWS LEFT; KNEE 3 VIEWS RIGHT XR COMPARISON: None HISTORY: ORDERING SYSTEM PROVIDED HISTORY: Reason for Exam: knee pain, frequent falls, previous injury; ORDERING SYSTEM PROVIDED HISTORY: Reason for Exam: knee pain, frequent falls., FINDINGS: No acute fracture, dislocation, lytic process or periosteal reaction is seen in the visualized bones and joints. No erosive type of arthritis. There are bilateral vascular calcifications around the knee. There may be attic was veins in the anterior suprapatellar soft tissues. No significant joint effusion on either side. Bilateral early osteoarthritis without joint space narrowing. IMPRESSION: No acute skeletal abnormality is seen. . Minimal bilateral osteoarthritis. Interpreted by: Kemar Lang MD Preliminary Report By: Kemar Lang MD Electronically signed By Kemar Lang MD Dictated Date: 02/23/2023 11:25:25 PM Prelim Date: 02/23/2023 11:26:45 PM Sign Date: 02/23/2023 11:26:45 PM Ordering Provider: MEY MADDOX [facility] ([place]) XR KNEE THREE VIEWS RIGHTon 02-23-2023 XR KNEE THREE VIEWS RIGHT ORIGINAL EXAMINATION: THREE XRAY VIEWS OF THE LEFT KNEE; THREE XRAY VIEWS OF THE RIGHT KNEE02/21/2023 3:21 pm; 02/21/2023 3:19 pm KNEE 3 VIEWS LEFT; KNEE 3 VIEWS RIGHT XR COMPARISON: None HISTORY: ORDERING SYSTEM PROVIDED HISTORY: Reason for Exam: knee pain, frequent falls, previous injury; ORDERING SYSTEM PROVIDED HISTORY: Reason for Exam: knee pain, frequent falls., FINDINGS: No acute fracture, dislocation, lytic process or periosteal reaction is seen in the visualized bones and joints. No erosive type of arthritis. There are bilateral vascular calcifications around the knee. There may be attic was veins in the anterior suprapatellar soft tissues. No significant joint effusion on either side. Bilateral early osteoarthritis without joint space narrowing. IMPRESSION: No acute skeletal abnormality is seen. . Minimal bilateral osteoarthritis. Interpreted by: Kemar Lang MD Preliminary Report By: Kemar Lang MD Electronically signed By Kemar Lang MD Dictated Date: 02/23/2023 11:25:25 PM Prelim Date: 02/23/2023 11:26:45 PM Sign Date: 02/23/2023 11:26:45 PM Ordering Provider: MEY MADDOX [facility] ([place]) .Auto Diffon 01-26-2023 Basophil, Absolute 0.1 10 3/mcL Normal 0.0-0.2 [facility]) Comment on above: Performed By: #### M DW, TROPHS, ANEU, GFR, CBC, ADIFF, BMP #### [place] [address] [place], [place] [address] Basophils/100 WBC (Bld) 1.0 % Normal 0.0-2.5 [facility] ([place]) Comment on above: Performed By: #### M DW, TROPHS, ANEU, GFR, CBC, ADIFF, BMP #### [address] [address] Eosinophil, Absolute 0.2 10 3/mcL Normal 0.0-0.4 [facility] ([place]) Comment on above: Performed By: #### M DW, TROPHS, ANEU, GFR, CBC, ADIFF, BMP #### [address] [address] Eosinophils/100 WBC (Bld) 2.3 % Normal 0.0-7.0 [facility] ([place]) Comment on above: Performed By: #### M DW, TROPHS, ANEU, GFR, CBC, ADIFF, BMP #### [address] [address] Lymphocyte, Absolute 1.8 10 3/mcL Normal 0.8-3.9 [facility] ([place]) Comment on above: Performed By: #### M DW, TROPHS, ANEU, GFR, CBC, ADIFF, BMP #### [address] [address] Lymphocytes/100 WBC (Bld) 19.2 % Normal 10.0-50.0 [facility] ([place]) Comment on above: Performed By: #### M DW, TROPHS, ANEU, GFR, CBC, ADIFF, BMP #### [address] [address] Monocyte, Absolute 0.7 10 3/mcL Normal 0.2-1.0 [facility] ([place]) Comment on above: Performed By: #### M DW, TROPHS, ANEU, GFR, CBC, ADIFF, BMP #### [address] [address] Monocytes/100 WBC (Bld) 7.2 % Normal 1.7-13.0 [facility] ([place]) Comment on above: Performed By: #### M DW, TROPHS, ANEU, GFR, CBC, ADIFF, BMP #### [address] [address] Neutrophils/100 WBC (Bld) 70.3 % Normal 37.0-80.0 [facility] ([place]) Comment on above: Performed By: #### M DW, TROPHS, ANEU, GFR, CBC, ADIFF, BMP #### [address] [address] .GFRon 01-26-2023 GFR 82 ml/min/1.73sqm Normal [facility] ([place]) Comment on above: Result Comment: GFR Population mean for , Non- Americans Ages 20-29 = 116 mL/min/1.73 sq.m. Ages 30-39 = 107 mL/min/1.73 sq.m. Ages 40-49 = 99 mL/min/1.73 sq.m. Ages 50-59 = 93 mL/min/1.73 sq.m. Ages 60-69 = 85 mL/min/1.73 sq.m. Ages 70+ = 75 mL/min/1.73 sq.m. Chronic Kidney Disease: Less than 60 mL/min/1.73 square meters End Stage Renal Disease: Less than 15 mL/min/1.73 square meters Performed By: #### M DW, TROPHS, ANEU, GFR, CBC, ADIFF, BMP #### [address] [address] GFR Non- 68 ml/min/1.73sqm Normal [facility] ([place]) Comment on above: Result Comment: GFR Population mean for , Non- Americans Ages 20-29 = 116 mL/min/1.73 sq.m. Ages 30-39 = 107 mL/min/1.73 sq.m. Ages 40-49 = 99 mL/min/1.73 sq.m. Ages 50-59 = 93 mL/min/1.73 sq.m. Ages 60-69 = 85 mL/min/1.73 sq.m. Ages 70+ = 75 mL/min/1.73 sq.m. Chronic Kidney Disease: Less than 60 mL/min/1.73 square meters End Stage Renal Disease: Less than 15 mL/min/1.73 square meters Performed By: #### M DW, TROPHS, ANEU, GFR, CBC, ADIFF, BMP #### [address] [address] .MDWon 01-26-2023 Monocyte Distribution Width 18.98 Normal 0.00-20.00 [facility] ([place]) Comment on above: Result Comment: For ED adult patients suspected of sepsis, MDW<=20.0 does not rule out sepsis or risk of sepsis Performed By: #### M DW, TROPHS, ANEU, GFR, CBC, ADIFF, BMP #### [address] [address] .NEUABSon 01-26-2023 Neutrophil, Absolute 6.8 10 3/mcL High 2.9-6.2 [facility] ([place]) Comment on above: Performed By: #### M DW, TROPHS, ANEU, GFR, CBC, ADIFF, BMP #### [address] [address] BMPon 01-26-2023 BUN/Creatinine Ratio 25 ratio Normal 7-27 [facility] ([place]) Comment on above: Performed By: #### M DW, TROPHS, ANEU, GFR, CBC, ADIFF, BMP #### [address] [address] Calcium [Mass/Vol] 9.1 mg/dL Normal 8.4-10.2 [facility] ([place]) Comment on above: Performed By: #### M DW, TROPHS, ANEU, GFR, CBC, ADIFF, BMP #### [address] [address] Chloride [Moles/Vol] 102 mmol/L Normal 98-107 [facility] ([place]) Comment on above: Performed By: #### M DW, TROPHS, ANEU, GFR, CBC, ADIFF, BMP #### [address] [address] CO2 [Moles/Vol] 27 mmol/L Normal 23-31 [facility] ([place]) Comment on above: Performed By: #### M DW, TROPHS, ANEU, GFR, CBC, ADIFF, BMP #### [address] [address] Creatinine [Mass/Vol] 0.80 mg/dL Normal 0.55-1.02 [facility] ([place]) Comment on above: Performed By: #### M DW, TROPHS, ANEU, GFR, CBC, ADIFF, BMP #### [address] [address] Electrolyte Balance 10.0 mEq/L Normal 4.0-15.0 [facility] ([place]) Comment on above: Performed By: #### M DW, TROPHS, ANEU, GFR, CBC, ADIFF, BMP #### [place] [id number] Glucose [Mass/Vol] 113 mg/dL High 83-110 [facility] ([place]) Comment on above: Performed By: #### M DW, TROPHS, ANEU, GFR, CBC, ADIFF, BMP #### [address] [address] Potassium [Moles/Vol] 3.6 mmol/L Normal 3.5-5.1 [facility] ([place]) Comment on above: Performed By: #### M DW, TROPHS, ANEU, GFR, CBC, ADIFF, BMP #### [address] [address] Sodium [Moles/Vol] 139 mmol/L Normal 136-145 [facility] ([place]) Comment on above: Performed By: #### M DW, TROPHS, ANEU, GFR, CBC, ADIFF, BMP #### [address] [address] Urea nitrogen [Mass/Vol] 20 mg/dL High 7-18 [facility] ([place]) Comment on above: Performed By: #### M DW, TROPHS, ANEU, GFR, CBC, ADIFF, BMP #### [address] [address] CBCon 01-26-2023 Erythrocyte distribution width (RBC) [Ratio] 14.0 % Normal 11.5-14.5 [facility] ([place]) Comment on above: Performed By: #### M DW, TROPHS, ANEU, GFR, CBC, ADIFF, BMP #### [place] [address] Hematocrit (Bld) [Volume fraction] 38.4 % Normal 37.0-47.0 [facility] ([place]) Comment on above: Performed By: #### M DW, TROPHS, ANEU, GFR, CBC, ADIFF, BMP #### [place] [address] Hgb 13.0 G/dL Normal 12.0-16.0 [facility] ([place]) Comment on above: Performed By: #### M DW, TROPHS, ANEU, GFR, CBC, ADIFF, BMP #### [place] [address] MCH (RBC) [Entitic mass] 30.2 pg Normal 27.0-31.2 [facility] ([place]) Comment on above: Performed By: #### M DW, TROPHS, ANEU, GFR, CBC, ADIFF, BMP #### [place] [address] MCHC 33.8 G/dL Normal 33.0-37.0 [facility] ([place]) Comment on above: Performed By: #### M DW, TROPHS, ANEU, GFR, CBC, ADIFF, BMP #### [place] [id number] MCV (RBC) [Entitic vol] 89.4 fL Normal 80.0-94.0 [facility] ([place]) Comment on above: Performed By: #### M DW, TROPHS, ANEU, GFR, CBC, ADIFF, BMP #### [place] [id number] Platelet 297 10 3/mcL Normal 130-400 [facility] ([place]) Comment on above: Performed By: #### M DW, TROPHS, ANEU, GFR, CBC, ADIFF, BMP #### [place] [address] [place], [place] [address] Platelet mean volume (Bld) [Entitic vol] 8.5 fL Normal 7.4-10.4 [facility] ([place]) Comment on above: Performed By: #### M DW, TROPHS, ANEU, GFR, CBC, ADIFF, BMP #### [place] [id number] [place], [place] [address] RBC 4.30 10 6/mcL Normal 4.20-5.40 [facility] ([place]) Comment on above: Performed By: #### M DW, TROPHS, ANEU, GFR, CBC, ADIFF, BMP #### [place] [address] [place], [place] [address] WBC 9.6 10 3/mcL Normal 4.6-10.8 [facility] ([place]) Comment on above: Performed By: #### M DW, TROPHS, ANEU, GFR, CBC, ADIFF, BMP #### [place] [address] [place], [place] [address] CT HEAD OR BRAIN W/O CONTRAS Ton 01-26-2023 CT HEAD OR BRAIN W/O CONTRAST ORIGINAL EXAMINATION: CT OF THE HEAD WITHOUT CONTRAST 01/26/2023 5:56 am TECHNIQUE: CT of the head was performed without the administration of intravenous contrast. Automated exposure control, iterative reconstruction, and/or weight based adjustment of the mA/kV was utilized to reduce the radiation dose to as low as reasonably achievable. COMPARISON: None. HISTORY: ORDERING SYSTEM PROVIDED HISTORY: Reason for Exam: C/o left sided BAUM for 2 days. Reports hx of migraines. Denies vision changes. Hx of stroke last year. Hx of breast CA. pain FINDINGS: BRAIN/VENTRICLES: There is no acute intracranial hemorrhage, mass effect or midline shift. No abnormal extra-axial fluid collection. The dasilva-white differentiation is maintained without evidence of an acute infarct. There is no evidence of hydrocephalus. ORBITS: The visualized portion of the orbits demonstrate no acute abnormality. SINUSES: The visualized paranasal sinuses and mastoid air cells demonstrate no acute abnormality. SOFT TISSUES/SKULL: No acute abnormality of the visualized skull or soft tissues. IMPRESSION: No acute intracranial abnormality. Interpreted by: Caleb Youngblood MD Preliminary Report By: Caleb Youngblood MD Electronically signed By Caleb Youngblood MD Dictated Date: 01/26/2023 5:59:54 AM Prelim Date: 01/26/2023 6:03:14 AM Sign Date: 01/26/2023 6:03:14 AM Ordering Provider: COSME HAGEN [facility] ([place]) LABORATORYOrdered By: SYSTEM SYSTEM on 01-26-2023 Basophil, Absolute 0.1 103/mcL Invalid Interpretation Code 0.0 - 0.2 10^3/mcL AO Workflow SS Basophils/100 WBC (Bld) 1.0 % Invalid Interpretation Code 0.0 - 2.5 % AO Workflow SS Calcium [Mass/Vol] 9.1 mg/dL Invalid Interpretation Code 8.4 - 10.2 mg/dL AO ADM SS Chloride [Moles/Vol] 102 mmol/L Invalid Interpretation Code 98 - 107 mmol/L AO ADM SS CO2 [Moles/Vol] 27 mmol/L Invalid Interpretation Code 23 - 31 mmol/L AO ADM SS Creatinine [Mass/Vol] 0.80 mg/dL Invalid Interpretation Code 0.55 - 1.02 mg/dL AO ADM SS Electrolyte Balance 10.0 mEq/L Invalid Interpretation Code 4.0 - 15.0 mEq/L AO ADM SS Eosinophil, Absolute 0.2 103/mcL Invalid Interpretation Code 0.0 - 0.4 10^3/mcL AO Workflow SS Eosinophils/100 WBC (Bld) 2.3 % Invalid Interpretation Code 0.0 - 7.0 % AO Workflow SS Erythrocyte distribution width (RBC) [Ratio] 14.0 % Invalid Interpretation Code 11.5 - 14.5 % AO Workflow SS GFR/1.73 sq M.predicted among blacks MDRD (S/P/Bld) [Vol rate/Area] 82 ml/min/1.73sqm Invalid Interpretation Code AO Chemistry S Comment on above: Interpretive Data: GFR Population mean for , Non- Americans Ages 20-29 = 116 mL/min/1.73 sq.m. Ages 30-39 = 107 mL/min/1.73 sq.m. Ages 40-49 = 99 mL/min/1.73 sq.m. Ages 50-59 = 93 mL/min/1.73 sq.m. Ages 60-69 = 85 mL/min/1.73 sq.m. Ages 70+ = 75 mL/min/1.73 sq.m. Chronic Kidney Disease: Less than 60 mL/min/1.73 square meters End Stage Renal Disease: Less than 15 mL/min/1.73 square meters GFR/1.73 sq M.predicted among non-blacks MDRD (S/P/Bld) [Vol rate/Area] 68 ml/min/1.73sqm Invalid Interpretation Code AO Chemistry S Comment on above: Interpretive Data: GFR Population mean for , Non- Americans Ages 20-29 = 116 mL/min/1.73 sq.m. Ages 30-39 = 107 mL/min/1.73 sq.m. Ages 40-49 = 99 mL/min/1.73 sq.m. Ages 50-59 = 93 mL/min/1.73 sq.m. Ages 60-69 = 85 mL/min/1.73 sq.m. Ages 70+ = 75 mL/min/1.73 sq.m. Chronic Kidney Disease: Less than 60 mL/min/1.73 square meters End Stage Renal Disease: Less than 15 mL/min/1.73 square meters Glucose [Mass/Vol] 113 mg/dL Invalid Interpretation Code 83 - 110 mg/dL AO ADM SS Hematocrit (Bld) [Volume fraction] 38.4 % Invalid Interpretation Code 37.0 - 47.0 % AO Workflow SS Hemoglobin (Bld) [Mass/Vol] 13.0 G/dL Invalid Interpretation Code 12.0 - 16.0 G/dL AO Workflow SS Lymphocyte, Absolute 1.8 103/mcL Invalid Interpretation Code 0.8 - 3.9 10^3/mcL AO Workflow SS Lymphocytes/100 WBC (Bld) 19.2 % Invalid Interpretation Code 10.0 - 50.0 % AO Workflow SS MCH (RBC) [Entitic mass] 30.2 pg Invalid Interpretation Code 27.0 - 31.2 pg AO Workflow SS MCHC 33.8 G/dL Invalid Interpretation Code 33.0 - 37.0 G/dL AO Workflow SS MCV (RBC) [Entitic vol] 89.4 fL Invalid Interpretation Code 80.0 - 94.0 fL AO Workflow SS Monocyte distribution width Auto (Bld) [Entitic vol] 18.98 1 Invalid Interpretation Code 0.00 - 20.00 AO Workflow SS Comment on above: Result Comment: For ED adult patients suspected of sepsis, MDW<=20.0 does not rule out sepsis or risk of sepsis Monocyte, Absolute 0.7 103/mcL Invalid Interpretation Code 0.2 - 1.0 10^3/mcL AO Workflow SS Monocytes/100 WBC (Bld) 7.2 % Invalid Interpretation Code 1.7 - 13.0 % AO Workflow SS Neutrophil, Absolute 6.8 103/mcL Invalid Interpretation Code 2.9 - 6.2 10^3/mcL AO Workflow SS Neutrophils/100 WBC (Bld) 70.3 % Invalid Interpretation Code 37.0 - 80.0 % AO Workflow SS Platelet mean volume (Bld) [Entitic vol] 8.5 fL Invalid Interpretation Code 7.4 - 10.4 fL AO Workflow SS Platelets (Bld) [#/Vol] 297 103/mcL Invalid Interpretation Code 130 - 400 10^3/mcL AO Workflow SS Potassium [Moles/Vol] 3.6 mmol/L Invalid Interpretation Code 3.5 - 5.1 mmol/L AO ADM SS RBC (Bld) [#/Vol] 4.30 106/mcL Invalid Interpretation Code 4.20 - 5.40 10^6/mcL AO Workflow SS Sodium [Moles/Vol] 139 mmol/L Invalid Interpretation Code 136 - 145 mmol/L AO ADM SS Urea nitrogen [Mass/Vol] 20 mg/dL Invalid Interpretation Code 7 - 18 mg/dL AO ADM SS Urea nitrogen/Creatinine [Mass ratio] 25 ratio Invalid Interpretation Code 7 - 27 ratio AO ADM SS WBC (Bld) [#/Vol] 9.6 103/mcL Invalid Interpretation Code 4.6 - 10.8 10^3/mcL AO Workflow SS LABORATORYOrdered By: Bhumika Winchester on 01-26-2023 Glucose [Mass/Vol] 99 mg/dL Invalid Interpretation Code 82 - 115 mg/dL [facility] 12-28-2022 B-Hydroxybutyrate 1.24 mg/dL Normal 0.20-2.81 [facility] ([place]) Comment on above: Performed By: #### M DW, TROPHS, ANEU, GFR, CBC, ADIFF, BMP #### [address] [place], [place] [address] .Auto Diffon 12-27-2022 Basophil, Absolute 0.1 10 3/mcL Normal 0.0-0.2 [facility] ([place]) Comment on above: Performed By: #### M DW, TROPHS, ANEU, GFR, CBC, ADIFF, BMP #### [address] [address] Basophils/100 WBC (Bld) 0.8 % Normal 0.0-2.5 [facility] ([place]) Comment on above: Performed By: #### M DW, TROPHS, ANEU, GFR, CBC, ADIFF, BMP #### [address] [address] Eosinophil, Absolute 0.2 10 3/mcL Normal 0.0-0.4 [facility] ([place]) Comment on above: Performed By: #### M DW, TROPHS, ANEU, GFR, CBC, ADIFF, BMP #### [address] [address] Eosinophils/100 WBC (Bld) 2.5 % Normal 0.0-7.0 [facility] ([place]) Comment on above: Performed By: #### M DW, TROPHS, ANEU, GFR, CBC, ADIFF, BMP #### [address] [address] Lymphocyte, Absolute 1.5 10 3/mcL Normal 0.8-3.9 [facility] ([place]) Comment on above: Performed By: #### M DW, TROPHS, ANEU, GFR, CBC, ADIFF, BMP #### [address] [address] Lymphocytes/100 WBC (Bld) 18.7 % Normal 10.0-50.0 [facility] ([place]) Comment on above: Performed By: #### M DW, TROPHS, ANEU, GFR, CBC, ADIFF, BMP #### [address] [address] Monocyte, Absolute 0.6 10 3/mcL Normal 0.2-1.0 [facility] ([place]) Comment on above: Performed By: #### M DW, TROPHS, ANEU, GFR, CBC, ADIFF, BMP #### [address] [address] Monocytes/100 WBC (Bld) 7.8 % Normal 1.7-13.0 [facility] ([place]) Comment on above: Performed By: #### M DW, TROPHS, ANEU, GFR, CBC, ADIFF, BMP #### [address] [address] Neutrophils/100 WBC (Bld) 70.2 % Normal 37.0-80.0 [facility] ([place]) Comment on above: Performed By: #### M DW, TROPHS, ANEU, GFR, CBC, ADIFF, BMP #### [address] [address] .GFRon 12-27-2022 GFR 64 ml/min/1.73sqm Normal [facility] ([place]) Comment on above: Result Comment: GFR Population mean for , Non- Americans Ages 20-29 = 116 mL/min/1.73 sq.m. Ages 30-39 = 107 mL/min/1.73 sq.m. Ages 40-49 = 99 mL/min/1.73 sq.m. Ages 50-59 = 93 mL/min/1.73 sq.m. Ages 60-69 = 85 mL/min/1.73 sq.m. Ages 70+ = 75 mL/min/1.73 sq.m. Chronic Kidney Disease: Less than 60 mL/min/1.73 square meters End Stage Renal Disease: Less than 15 mL/min/1.73 square meters Performed By: #### M DW, TROPHS, ANEU, GFR, CBC, ADIFF, BMP #### [address] [address] GFR Non- 52 ml/min/1.73sqm Normal [facility] ([place]) Comment on above: Result Comment: GFR Population mean for , Non- Americans Ages 20-29 = 116 mL/min/1.73 sq.m. Ages 30-39 = 107 mL/min/1.73 sq.m. Ages 40-49 = 99 mL/min/1.73 sq.m. Ages 50-59 = 93 mL/min/1.73 sq.m. Ages 60-69 = 85 mL/min/1.73 sq.m. Ages 70+ = 75 mL/min/1.73 sq.m. Chronic Kidney Disease: Less than 60 mL/min/1.73 square meters End Stage Renal Disease: Less than 15 mL/min/1.73 square meters Performed By: #### M DW, TROPHS, ANEU, GFR, CBC, ADIFF, BMP #### [address] [address] .MDWon 12-27-2022 Monocyte Distribution Width 20.29 High 0.00-20.00 [facility] ([place]) Comment on above: Result Comment: For adults in ED, MDW>20.0 may be associated with a higher risk of sepsis during the first 12hrs of hospital admission Performed By: #### M DW, TROPHS, ANEU, GFR, CBC, ADIFF, BMP #### [place] [address] .NEUABSon 12-27-2022 Neutrophil, Absolute 5.5 10 3/mcL Normal 2.9-6.2 [facility] ([place]) Comment on above: Performed By: #### M DW, TROPHS, ANEU, GFR, CBC, ADIFF, BMP #### [address] [address] CBCon 12-27-2022 Erythrocyte distribution width (RBC) [Ratio] 13.8 % Normal 11.5-14.5 [facility] ([place]) Comment on above: Performed By: #### M DW, TROPHS, ANEU, GFR, CBC, ADIFF, BMP #### [address] [address] Hematocrit (Bld) [Volume fraction] 39.4 % Normal 37.0-47.0 [facility] ([place]) Comment on above: Performed By: #### M DW, TROPHS, ANEU, GFR, CBC, ADIFF, BMP #### [address] [place] [address] Hgb 13.2 G/dL Normal 12.0-16.0 [facility] ([place]) Comment on above: Performed By: #### M DW, TROPHS, ANEU, GFR, CBC, ADIFF, BMP #### [address] [address] MCH (RBC) [Entitic mass] 30.2 pg Normal 27.0-31.2 [facility] ([place]) Comment on above: Performed By: #### M DW, TROPHS, ANEU, GFR, CBC, ADIFF, BMP #### [address] [address] MCHC 33.6 G/dL Normal 33.0-37.0 [facility] ([place]) Comment on above: Performed By: #### M DW, TROPHS, ANEU, GFR, CBC, ADIFF, BMP #### [address] [address] MCV (RBC) [Entitic vol] 89.9 fL Normal 80.0-94.0 [facility] ([place]) Comment on above: Performed By: #### M DW, TROPHS, ANEU, GFR, CBC, ADIFF, BMP #### [address] [address] Platelet 271 10 3/mcL Normal 130-400 [facility] ([place]) Comment on above: Performed By: #### M DW, TROPHS, ANEU, GFR, CBC, ADIFF, BMP #### [address] [address] Platelet mean volume (Bld) [Entitic vol] 9.1 fL Normal 7.4-10.4 [facility] ([place]) Comment on above: Performed By: #### M DW, TROPHS, ANEU, GFR, CBC, ADIFF, BMP #### [address] [address] RBC 4.38 10 6/mcL Normal 4.20-5.40 [facility] ([place]) Comment on above: Performed By: #### M DW, TROPHS, ANEU, GFR, CBC, ADIFF, BMP #### [address] [address] WBC 7.8 10 3/mcL Normal 4.6-10.8 [facility] ([place]) Comment on above: Performed By: #### M DW, TROPHS, ANEU, GFR, CBC, ADIFF, BMP #### [address] [address] CMPon 12-27-2022 Albumin Level 3.7 G/dL Normal 3.4-4.8 [facility] ([place]) Comment on above: Performed By: #### M DW, TROPHS, ANEU, GFR, CBC, ADIFF, BMP #### [address] [address] Albumin/Globulin [Mass ratio] 1.1 {ratio} Normal 1.1-2.5 [facility] ([place]) Comment on above: Performed By: #### M DW, TROPHS, ANEU, GFR, CBC, ADIFF, BMP #### [address] [address] ALP [Catalytic activity/Vol] 103 U/L Normal 40-135 [facility] ([place]) Comment on above: Performed By: #### M DW, TROPHS, ANEU, GFR, CBC, ADIFF, BMP #### [address] [address] ALT [Catalytic activity/Vol] 20 U/L Normal 14-59 [facility] ([place]) Comment on above: Performed By: #### M DW, TROPHS, ANEU, GFR, CBC, ADIFF, BMP #### [address] [address] AST [Catalytic activity/Vol] 13 U/L Normal 10-40 [facility] ([place]) Comment on above: Performed By: #### M DW, TROPHS, ANEU, GFR, CBC, ADIFF, BMP #### [address] [address] Bili Total 0.4 mg/dL Normal 0.2-1.0 [facility] ([place]) Comment on above: Result Comment: Use of this assay is not recommended for patients undergoing treatment with eltrombopag due to the potential for falsely elevated results. Performed By: #### M DW, TROPHS, ANEU, GFR, CBC, ADIFF, BMP #### [address] [address] BUN/Creatinine Ratio 20 ratio Normal 7-27 [facility] ([place]) Comment on above: Performed By: #### M DW, TROPHS, ANEU, GFR, CBC, ADIFF, BMP #### [address] [address] Calcium [Mass/Vol] 9.1 mg/dL Normal 8.4-10.2 [facility] ([place]) Comment on above: Performed By: #### M DW, TROPHS, ANEU, GFR, CBC, ADIFF, BMP #### [address] [address] Chloride [Moles/Vol] 99 mmol/L Normal 98-107 [facility] ([place]) Comment on above: Performed By: #### M DW, TROPHS, ANEU, GFR, CBC, ADIFF, BMP #### [address] [address] CO2 [Moles/Vol] 24 mmol/L Normal 23-31 [facility] ([place]) Comment on above: Performed By: #### M DW, TROPHS, ANEU, GFR, CBC, ADIFF, BMP #### [address] [address] Creatinine [Mass/Vol] 1.00 mg/dL Normal 0.55-1.02 [facility] ([place]) Comment on above: Performed By: #### M DW, TROPHS, ANEU, GFR, CBC, ADIFF, BMP #### [address] [address] Electrolyte Balance 11.0 mEq/L Normal 4.0-15.0 [facility] ([place]) Comment on above: Performed By: #### M DW, TROPHS, ANEU, GFR, CBC, ADIFF, BMP #### [address] [address] Globulin 3.4 G/dL Normal [facility] ([place]) Comment on above: Performed By: #### M DW, TROPHS, ANEU, GFR, CBC, ADIFF, BMP #### [address] [address] Glucose [Mass/Vol] 425 mg/dL Critically abnormal 83-110 [facility] ([place]) Comment on above: Performed By: #### M DW, TROPHS, ANEU, GFR, CBC, ADIFF, BMP #### [address] [address] Potassium [Moles/Vol] 4.5 mmol/L Normal 3.5-5.1 [facility] ([place]) Comment on above: Performed By: #### M DW, TROPHS, ANEU, GFR, CBC, ADIFF, BMP #### [address] [address] Sodium [Moles/Vol] 134 mmol/L Low 136-145 [facility] ([place]) Comment on above: Performed By: #### M DW, TROPHS, ANEU, GFR, CBC, ADIFF, BMP #### [address] [address] Total Protein 7.1 G/dL Normal 6.4-8.2 [facility] ([place]) Comment on above: Performed By: #### M DW, TROPHS, ANEU, GFR, CBC, ADIFF, BMP #### [address] [address] Urea nitrogen [Mass/Vol] 20 mg/dL High 7-18 [facility] ([place]) Comment on above: Performed By: #### M DW, TROPHS, ANEU, GFR, CBC, ADIFF, BMP #### [address] [address] [address] HEAD OR BRAIN W/O CONTRAS Ton 12-27-2022 CT HEAD OR BRAIN W/O CONTRAST ORIGINAL EXAMINATION: CT OF THE HEAD WITHOUT CONTRAST 12/27/2022 6:13 pm TECHNIQUE: CT of the head was performed without the administration of intravenous contrast. Automated exposure control, iterative reconstruction, and/or weight based adjustment of the mA/kV was utilized to reduce the radiation dose to as low as reasonably achievable. COMPARISON: 05/02/2021 HISTORY: ORDERING SYSTEM PROVIDED HISTORY: Reason for Exam: Pt got dizzy falling out of her car and fell and hit the back of her head on the cement. On thinners. No LOC. Current HTN Altered mental status FINDINGS: BRAIN/VENTRICLES: There is no acute intracranial hemorrhage, mass effect or midline shift. No abnormal extra-axial fluid collection. The dasilva-white differentiation is maintained without evidence of a large vessel territorial acute infarct. There is no evidence of hydrocephalus. 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 The ventricles are mildly enlarged with commensurate enlargement of the sulci most consistent with global parenchymal volume loss. Carotid siphon and left vertebral artery calcifications are present. Scattered small old bilateral basal ganglia hypodensities. ORBITS: The visualized portion of the orbits demonstrate no acute abnormality. Bilateral orbital lens implants. SINUSES: The visualized paranasal sinuses and mastoid air cells demonstrate no acute abnormality. SOFT TISSUES/SKULL: Left parietal scalp soft tissue contusion/laceration. No underlying calvarial fracture. IMPRESSION: No acute intracranial hemorrhage. I have personally reviewed the images of this examination and agree with the resident's findings and interpretation. Interpreted by: Burt Phan Preliminary Report By: Gael Moreno Electronically signed By Burt Phan Dictated Date: 12/27/2022 6:15:45 PM Prelim Date: 12/27/2022 6:22:31 PM Sign Date: 12/27/2022 6:25:47 PM Ordering Provider: RO MILES [facility] ([place]) CT SPINE CERVICAL W/O CASEY Mike 12-27-2022 CT SPINE CERVICAL W/O CONTRAST ORIGINAL EXAMINATION: CT OF THE CERVICAL SPINE WITHOUT CONTRAST 12/27/2022 6:18 pm TECHNIQUE: CT of the cervical spine was performed without the administration of intravenous contrast. Multiplanar reformatted images are provided for review. Automated exposure control, iterative reconstruction, and/or weight based adjustment of the mA/kV was utilized to reduce the radiation dose to as low as reasonably achievable. COMPARISON: None. HISTORY: ORDERING SYSTEM PROVIDED HISTORY: Reason for Exam: Pt got dizzy falling out of her car and fell and hit the back of her head on the cement. On thinners. No LOC. Current HTN Altered mental status FINDINGS: BONES/ALIGNMENT: There is no acute fracture or traumatic malalignment. DEGENERATIVE CHANGES: Multilevel degenerative changes of the spine. No high-grade spinal canal stenosis. SOFT TISSUES: There is no prevertebral soft tissue swelling. IMPRESSION: No acute fracture of the cervical spine. Interpreted by: Burt Phan Preliminary Report By: Burt Phan Electronically signed By Burt Phan Dictated Date: 12/27/2022 6:19:41 PM Prelim Date: 12/27/2022 6:23:50 PM Sign Date: 12/27/2022 6:23:50 PM Ordering Provider: RO MILES [facility] ([place]) LABORATORYOrdered By: Gris Flanagan on 12-27-2022 Glucose [Mass/Vol] 200 mg/dL Invalid Interpretation Code 82 - 115 mg/dL [facility] LABORATORYOrdered By: Rommel Lao on 12-27-2022 Blood Glucose Interventions Notify physician (12/27/22 7:02 PM) [facility] Glucose [Mass/Vol] 303 mg/dL Invalid Interpretation Code 82 - 115 mg/dL [facility] LABORATORYOrdered By: SYSTEM SYSTEM on 12-27-2022 Albumin BCP dye [Mass/Vol] 3.7 G/dL Invalid Interpretation Code 3.4 - 4.8 G/dL AO ADM SS Albumin/Globulin [Mass ratio] 1.1 {ratio} Invalid Interpretation Code 1.1 - 2.5 ratio AO ADM SS ALP [Catalytic activity/Vol] 103 U/L Invalid Interpretation Code 40 - 135 U/L AO ADM SS ALT With P-5'-P [Catalytic activity/Vol] 20 U/L Invalid Interpretation Code 14 - 59 U/L AO ADM SS AST With P-5'-P [Catalytic activity/Vol] 13 U/L Invalid Interpretation Code 10 - 40 U/L AO ADM SS Basophil, Absolute 0.1 103/mcL Invalid Interpretation Code 0.0 - 0.2 10^3/mcL AO Workflow SS Basophils/100 WBC (Bld) 0.8 % Invalid Interpretation Code 0.0 - 2.5 % AO Workflow SS Bilirubin [Mass/Vol] 0.4 mg/dL Invalid Interpretation Code 0.2 - 1.0 mg/dL AO ADM SS Comment on above: Interpretive Data: U se of this assay is not recommended for patients undergoing treatment with eltrombopag due to the potential for falsely elevated results. Calcium [Mass/Vol] 9.1 mg/dL Invalid Interpretation Code 8.4 - 10.2 mg/dL AO ADM SS Chloride [Moles/Vol] 99 mmol/L Invalid Interpretation Code 98 - 107 mmol/L AO ADM SS CO2 [Moles/Vol] 24 mmol/L Invalid Interpretation Code 23 - 31 mmol/L AO ADM SS Creatinine [Mass/Vol] 1.00 mg/dL Invalid Interpretation Code 0.55 - 1.02 mg/dL AO ADM SS Electrolyte Balance 11.0 mEq/L Invalid Interpretation Code 4.0 - 15.0 mEq/L AO ADM SS Eosinophil, Absolute 0.2 103/mcL Invalid Interpretation Code 0.0 - 0.4 10^3/mcL AO Workflow SS Eosinophils/100 WBC (Bld) 2.5 % Invalid Interpretation Code 0.0 - 7.0 % AO Workflow SS Erythrocyte distribution width (RBC) [Ratio] 13.8 % Invalid Interpretation Code 11.5 - 14.5 % AO Workflow SS GFR/1.73 sq M.predicted among blacks MDRD (S/P/Bld) [Vol rate/Area] 64 ml/min/1.73sqm Invalid Interpretation Code AO Chemistry S Comment on above: Interpretive Data: GFR Population mean for , Non- Americans Ages 20-29 = 116 mL/min/1.73 sq.m. Ages 30-39 = 107 mL/min/1.73 sq.m. Ages 40-49 = 99 mL/min/1.73 sq.m. Ages 50-59 = 93 mL/min/1.73 sq.m. Ages 60-69 = 85 mL/min/1.73 sq.m. Ages 70+ = 75 mL/min/1.73 sq.m. Chronic Kidney Disease: Less than 60 mL/min/1.73 square meters End Stage Renal Disease: Less than 15 mL/min/1.73 square meters GFR/1.73 sq M.predicted among non-blacks MDRD (S/P/Bld) [Vol rate/Area] 52 ml/min/1.73sqm Invalid Interpretation Code AO Chemistry S Comment on above: Interpretive Data: GFR Population mean for , Non- Americans Ages 20-29 = 116 mL/min/1.73 sq.m. Ages 30-39 = 107 mL/min/1.73 sq.m. Ages 40-49 = 99 mL/min/1.73 sq.m. Ages 50-59 = 93 mL/min/1.73 sq.m. Ages 60-69 = 85 mL/min/1.73 sq.m. Ages 70+ = 75 mL/min/1.73 sq.m. Chronic Kidney Disease: Less than 60 mL/min/1.73 square meters End Stage Renal Disease: Less than 15 mL/min/1.73 square meters Globulin 3.4 G/dL Invalid Interpretation Code AO ADM SS Glucose [Mass/Vol] 425 mg/dL Invalid Interpretation Code 83 - 110 mg/dL AO ADM SS Hematocrit (Bld) [Volume fraction] 39.4 % Invalid Interpretation Code 37.0 - 47.0 % AO Workflow SS Hemoglobin (Bld) [Mass/Vol] 13.2 G/dL Invalid Interpretation Code 12.0 - 16.0 G/dL AO Workflow SS Lymphocyte, Absolute 1.5 103/mcL Invalid Interpretation Code 0.8 - 3.9 10^3/mcL AO Workflow SS Lymphocytes/100 WBC (Bld) 18.7 % Invalid Interpretation Code 10.0 - 50.0 % AO Workflow SS MCH (RBC) [Entitic mass] 30.2 pg Invalid Interpretation Code 27.0 - 31.2 pg AO Workflow SS MCHC 33.6 G/dL Invalid Interpretation Code 33.0 - 37.0 G/dL AO Workflow SS MCV (RBC) [Entitic vol] 89.9 fL Invalid Interpretation Code 80.0 - 94.0 fL AO Workflow SS Monocyte distribution width Auto (Bld) [Entitic vol] 20.29 1 Invalid Interpretation Code 0.00 - 20.00 AO Workflow SS Comment on above: Result Comment: For adults in ED, MDW>20.0 may be associated with a higher risk of sepsis during the first 12hrs of hospital admission Monocyte, Absolute 0.6 103/mcL Invalid Interpretation Code 0.2 - 1.0 10^3/mcL AO Workflow SS Monocytes/100 WBC (Bld) 7.8 % Invalid Interpretation Code 1.7 - 13.0 % AO Workflow SS Neutrophil, Absolute 5.5 103/mcL Invalid Interpretation Code 2.9 - 6.2 10^3/mcL AO Workflow SS Neutrophils/100 WBC (Bld) 70.2 % Invalid Interpretation Code 37.0 - 80.0 % AO Workflow SS Platelet mean volume (Bld) [Entitic vol] 9.1 fL Invalid Interpretation Code 7.4 - 10.4 fL AO Workflow SS Platelets (Bld) [#/Vol] 271 103/mcL Invalid Interpretation Code 130 - 400 10^3/mcL AO Workflow SS Potassium [Moles/Vol] 4.5 mmol/L Invalid Interpretation Code 3.5 - 5.1 mmol/L AO ADM SS Protein [Mass/Vol] 7.1 G/dL Invalid Interpretation Code 6.4 - 8.2 G/dL AO ADM SS RBC (Bld) [#/Vol] 4.38 106/mcL Invalid Interpretation Code 4.20 - 5.40 10^6/mcL AO Workflow SS Sodium [Moles/Vol] 134 mmol/L Invalid Interpretation Code 136 - 145 mmol/L AO ADM SS Troponin I.cardiac DL <= 0.01 ng/mL [Mass/Vol] 5.1 ng/L Invalid Interpretation Code 0.0 - 51.4 ng/L AO ADM SS Urea nitrogen [Mass/Vol] 20 mg/dL Invalid Interpretation Code 7 - 18 mg/dL AO ADM SS Urea nitrogen/Creatinine [Mass ratio] 20 ratio Invalid Interpretation Code 7 - 27 ratio AO ADM SS WBC (Bld) [#/Vol] 7.8 103/mcL Invalid Interpretation Code 4.6 - 10.8 10^3/mcL AO Workflow SS LABORATORYOrdered By: Callie Kwon on 12-27-2022 pH (BldV) 7.38 [pH] Invalid Interpretation Code 7.31 - 7.41 AO Blood Gas SS PHVon 12-27-2022 pH Venous 7.38 Normal 7.31-7.41 [facility] ([place]) Comment on above: Performed By: #### M CHIRAG, SAMIRS, ANEU, GFR, CBC, ADIFF, BMP #### Talisha [address] [address] TROPHSon 12-27-2022 Troponin I High Sensitivity 5.1 ng/L Normal 0.0-51.4 [facility] ([place]) Comment on above: Performed By: #### M CHIRAG, TROPHS, ANEU, GFR, CBC, ADIFF, BMP #### [address] [place], [place] [address] XR CHEST 1 VIEWon 12-27-2022 XR CHEST 1 VIEW ORIGINAL EXAMINATION: ONE XRAY VIEW OF THE CHEST 12/27/2022 6:13 pm COMPARISON: Radiograph of the chest August 18, 2022 HISTORY: ORDERING SYSTEM PROVIDED HISTORY: Reason for Exam: Pt got dizzy falling out of her car and fell and hit the back of her head on the cement. On thinners. No LOC. Current HTN Altered mental status FINDINGS: Cardiomediastinal silhouette is unchanged in size. Costophrenic angles are sharp. No radiographic pneumothorax. No focal consolidation. Similar appearing reticular interstitial markings. Osseous structures are grossly unchanged. IMPRESSION: No focal consolidation. Interpreted by: Burt Phan Preliminary Report By: Burt Phan Electronically signed By Burt Phan Dictated Date: 12/27/2022 6:15:15 PM Prelim Date: 12/27/2022 6:17:13 PM Sign Date: 12/27/2022 6:17:13 PM Ordering Provider: RO MILES [facility] ([place]) Basophil percentageOrdered B y: Edis Martinez on 10-27-2022 Chloride [Moles/Vol] 106 mmol/L 98-107 [facility] Glucose [Mass/Vol] 245 mg/dL 74-106 [facility] Comment on above: Glucose result great er than or equal to 200 mg/dLsuggests DIABETES MELLITUS per A.D.A. criteria. Potassium [Moles/Vol] 4.0 mmol/L 3.5-5.1 [facility] Sodium [Moles/Vol] 138 mmol/L 136-145 [facility] WBC (Bld) [#/Vol] 7.5 10*3/uL 4.4-11.0 [facility] Blood erythrocytes count (nu mber/volume)Ordered By: Edis Martinez on 10-27-2022 RBC (Bld) [#/Vol] 4.29 10*6/uL 4.2-5.4 [facility] Blood hemoglobin measurement (mass/volume)Ordered By: Edis Martinez on 10-27-2022 Hemoglobin (Bld) [Mass/Vol] 12.9 g/dL 12.0-15.0 [facility] Blood platelet mean volumeOr dered By: Edis Martinez on 10-27-2022 Platelet mean volume (Bld) [Entitic vol] 10.6 fL 6.2-12.0 [facility] Determination of erythrocyte mean corpuscular volume (MCV)Ordered By: Edis Martinez on 10-27-2022 MCV (RBC) [Entitic vol] 94.2 fL 81-99 [facility] Hematocrit Auto (Bld) [Volum e fraction]Ordered By: Edis Martinez on 10-27-2022 Hematocrit (Bld) [Volume fraction] 40.4 % 37-47 [facility] Laboratory - Chemistry and C hemistry - challengeOrdered By: Edis Martinez on 10-27-2022 CO2 [Moles/Vol] 27.0 mmol/L 21.0-32.0 [facility] Urea nitrogen/Creatinine [Mass ratio] 25.5 mg/mg 10-20 [facility] Laboratory - Hematology and Cell countsOrdered By: Edis Martinez on 10-27-2022 Erythrocyte distribution width (RBC) [Entitic vol] 45.2 fL 35.1-43.9 [facility] Erythrocyte distribution width (RBC) [Ratio] 13.1 % 11.6-14.6 [facility] MCH (RBC) [Entitic mass] 30.1 pg 27.0-32.0 [facility] MCHC Auto (RBC) [Mass/Vol]Or dered By: Edis Martinez on 10-27-2022 MCHC (RBC) [Mass/Vol] 31.9 g/dL 32-36 [facility] No Panel InformationOrdered By: Edis Martinez on 10-27-2022 Estimated GFR (MDRD) Amer 84 mL/min >60 [facility] Comment on above: GFR Calc Estimated GFR (MDRD) Non-Af Amer 70 mL/min >60 [facility] Comment on above: Non- GFR Calc Platelets bldOrdered By: Gurinder Martinez on 10-27-2022 Platelets (Bld) [#/Vol] 288 10*3/uL 150-450 [facility] Serum or plasma calcium roger urement (mass/volume)Ordered By: Edis Martinez on 10-27-2022 Calcium [Mass/Vol] 9.2 mg/dL 8.5-10.1 [facility] Serum or plasma creatinine m easurement (mass/volume)Ordered By: Edis Martinez on 10-27-2022 Creatinine [Mass/Vol] 0.82 mg/dL 0.55-1.02 [facility] Comment on above: The validity of the calculated GFR & GFRAA in patients over 70 years has not been determined. Clinical correlation is essential. Serum or plasma urea nitroge n measurement (mass/volume)Ordered By: Edis Martinez on 10-27-2022 Urea nitrogen [Mass/Vol] 21 mg/dL 7-18 [facility] Thin prep Papanicolaou smear with manual screeningOrdered By: Edis Martinez on 10-27-2022 Thin prep Papanicolaou smear with manual screening 5 5-15 [facility] LABORATORYOrdered By: Deandra Wood on 08-18-2022 SARS-CoV-2 (COVID-19) RNA ANTHONY+probe Ql (Resp) Negative results do not preclude SARS-CoV-2 infection and should not be used as the sole basis for patient management decisions. Negative results must be combined with clinical observations, patient history, and epidemiological information.There is a risk of false negative values resulting from improperly collected, transported, or handled specimens.There is a risk of false negative values due to the presence of sequence variants in the pathogen targets of the assay, procedural errors, amplification inhibitors in specimens, or inadequate numbers of organisms for amplification.TOMAS SARS-CoV-2 Assay is a Real-Time reverse-transcriptase polymerase chain reaction (RT-PCR) based qualitative in vitro diagnostic test intended for the qualitative detection of nucleic acid from the SARS-CoV-2 in nasopharyngeal swab specimens collected from individuals suspected of COVID-19 by their healthcare provider. Testing is limited to laboratories certified under the Clinical Laboratory Improvement Amendments of 1988 (CLIA), 42 U.S.C. 263a, to perform moderate and high complexity tests. Invalid Interpretation Code AO Auto Urine SS CNOVon 09-27-2021 CNOV Office Visit ([facility] ) PATRICK MOYER ([id number]) 1935 F Date Time Provider Department 09/27/21 10:00 AM ANNETTE LR [facility] During your visit today, we recorded the following information about you: Annette Lr APRN.[facility] 09/27/2021 10:02 AM Signed Patient came in with caregiver. Fell and hit her head. Is on a blood thinner and has severe bruising and swelling around eye accompanied by a severe headache. Patient caregiver is going to take her to the ER. Referring Provider: SELF [[id number]] Allergies As of Date: 09/27/2021 (Not on File) Date Reviewed: Never Reviewed Primary Visit Diagnosis:Injury of head, initial encounter [S09.90XA] Problem List As Of Date: 09/27/2021 (None) Encounter Status:Closed by ANNETTE LR on 09/27/21 Normal [facility] LABORATORYOrdered By: Lupillo Curtis on 07-15-2021 Albumin BCP dye [Mass/Vol] 3.4 G/dL Invalid Interpretation Code 3.4 - 4.8 G/dL AO ADM SS Albumin/Globulin [Mass ratio] 1.1 {ratio} Invalid Interpretation Code 1.1 - 2.5 ratio AO ADM SS ALP [Catalytic activity/Vol] 102 U/L Invalid Interpretation Code 40 - 135 U/L AO ADM SS ALT With P-5'-P [Catalytic activity/Vol] 25 U/L Invalid Interpretation Code 14 - 59 U/L AO ADM SS AST With P-5'-P [Catalytic activity/Vol] 15 U/L Invalid Interpretation Code 10 - 40 U/L AO ADM SS Bilirubin [Mass/Vol] 0.6 mg/dL Invalid Interpretation Code 0.2 - 1.0 mg/dL AO ADM SS Calcium [Mass/Vol] 9.1 mg/dL Invalid Interpretation Code 8.4 - 10.2 mg/dL AO ADM SS Chloride [Moles/Vol] 105 mmol/L Invalid Interpretation Code 98 - 107 mmol/L AO ADM SS Cholesterol [Mass/Vol] 156 mg/dL Invalid Interpretation Code 0 - 200 mg/dL AO ADM SS Cholesterol in HDL [Mass/Vol] 51 mg/dL Invalid Interpretation Code 40 - 60 mg/dL AO ADM SS Cholesterol in LDL [Mass/Vol] 92 mg/dL Invalid Interpretation Code 0 - 130 mg/dL AO ADM SS CO2 [Moles/Vol] 28 mmol/L Invalid Interpretation Code 23 - 31 mmol/L AO ADM SS Creatinine [Mass/Vol] 0.82 mg/dL Invalid Interpretation Code 0.55 - 1.02 mg/dL AO ADM SS Electrolyte Balance 9.0 mEq/L Invalid Interpretation Code 4.0 - 15.0 mEq/L AO ADM SS Globulin 3.2 G/dL Invalid Interpretation Code AO ADM SS Glucose [Mass/Vol] 98 mg/dL Invalid Interpretation Code 83 - 110 mg/dL AO ADM SS Potassium [Moles/Vol] 3.7 mmol/L Invalid Interpretation Code 3.5 - 5.1 mmol/L AO ADM SS Protein [Mass/Vol] 6.6 G/dL Invalid Interpretation Code 6.4 - 8.2 G/dL AO ADM SS Sodium [Moles/Vol] 142 mmol/L Invalid Interpretation Code 136 - 145 mmol/L AO ADM SS Triglyceride [Mass/Vol] 64 mg/dL Invalid Interpretation Code 0 - 150 mg/dL AO ADM SS TSH Qn 2.26 m[IU]/L Invalid Interpretation Code 0.36 - 3.74 mcIU/mL AO ADM SS Urea nitrogen [Mass/Vol] 16 mg/dL Invalid Interpretation Code 7 - 18 mg/dL AO ADM SS Urea nitrogen/Creatinine [Mass ratio] 20 ratio Invalid Interpretation Code 7 - 27 ratio AO ADM SS Vit. D 25-Hydroxy 30.3 ng/mL Invalid Interpretation Code AO ADM SS LABORATORYOrdered By: SYSTEM SYSTEM on 07-15-2021 C peptide [Mass/Vol] 0.42 ng/mL Invalid Interpretation Code 0.81 - 3.85 ng/mL AH ADM SS GFR 80 ml/min/1.73sqm Invalid Interpretation Code AO Chemistry S GFR Non- 66 ml/min/1.73sqm Invalid Interpretation Code AO Chemistry S Vital Signs Date Time Vital Sign Value Performing Clinician Facility 12-13-2023 14:38-0400 Body temperature 97.88 [degF] RAQUEL ZHONG JOB SERVICE CONSULTANT-CALL OUT CLERK [facility] 12-13-2023 14:38-0400 Diastolic Blood Pressure Non-Invasive 59 mm[Hg] RAQUEL ZHONG JOB SERVICE CONSULTANT-CALL OUT CLERK [facility] 12-13-2023 14:38-0400 Heart rate 53 /min RAQUEL ZHONG JOB SERVICE CONSULTANT-CALL OUT CLERK [facility] 12-13-2023 14:38-0400 Reason For Taking VItal Signs RAQUEL ZHONG JOB SERVICE CONSULTANT-CALL OUT CLERK [facility] 12-13-2023 14:38-0400 Respiratory rate 16 /min RAQUEL ZHONG JOB SERVICE CONSULTANT-CALL OUT CLERK [facility] 12-13-2023 14:38-0400 Systolic Blood Pressure Non-Invasive 152 mm[Hg] RAQUEL ZHONG JOB SERVICE CONSULTANT-CALL OUT CLERK [facility] 12-13-2023 11:00-0400 Body temperature 98.06 [degF] RAQUEL ZHONG JOB SERVICE CONSULTANT-CALL OUT CLERK [facility] 12-13-2023 11:00-0400 Diastolic Blood Pressure Non-Invasive 56 mm[Hg] RAQUEL ZHONG JOB SERVICE CONSULTANT-CALL OUT CLERK [facility] 12-13-2023 11:00-0400 Heart rate 59 /min RAQUEL ZHONG JOB SERVICE CONSULTANT-CALL OUT CLERK [facility] 12-13-2023 11:00-0400 Systolic Blood Pressure Non-Invasive 145 mm[Hg] RAQUEL ZHONG JOB SERVICE CONSULTANT-CALL OUT CLERK [facility] 12-13-2023 07:22-0400 Body temperature 98.24 [degF] RAQUEL ZHONG JOB SERVICE CONSULTANT-CALL OUT CLERK [facility] 12-13-2023 07:22-0400 Diastolic Blood Pressure Non-Invasive 53 mm[Hg] RAQUEL ZHONG JOB SERVICE CONSULTANT-CALL OUT CLERK [facility] 12-13-2023 07:22-0400 Heart rate 63 /min RAQUEL ZHONG JOB SERVICE CONSULTANT-CALL OUT CLERK [facility] 12-13-2023 07:22-0400 Reason For Taking VItal Signs RAQUEL ZHONG JOB SERVICE CONSULTANT-CALL OUT CLERK [facility] 12-13-2023 07:22-0400 Respiratory rate 16 /min RAQUEL ZHONG JOB SERVICE CONSULTANT-CALL OUT CLERK [facility] 12-13-2023 07:22-0400 Systolic Blood Pressure Non-Invasive 131 mm[Hg] RAQUEL ZHONG JOB SERVICE CONSULTANT-CALL OUT CLERK [facility] 12-12-2023 23:59-0400 Body height 162.6 cm RAQUEL ZHONG JOB SERVICE CONSULTANT-CALL OUT CLERK [facility] 12-12-2023 23:59-0400 Body weight 66.7 kg RAQUEL ZHONG JOB SERVICE CONSULTANT-CALL OUT CLERK [facility] 12-12-2023 23:59-0400 Body weight 25.23 kg/m2 RAQUEL ZHONG JOB SERVICE CONSULTANT-CALL OUT CLERK [facility] 12-12-2023 23:58-0400 Body weight 66.7 kg RAQUEL ZHONG JOB SERVICE CONSULTANT-CALL OUT CLERK [facility] 12-12-2023 20:20-0400 Blood Pressure Cuff Size RAQUEL ZHONG JOB SERVICE CONSULTANT-CALL OUT CLERK [facility] 12-12-2023 20:20-0400 Blood Pressure Location RAQUEL ZHONG JOB SERVICE CONSULTANT-CALL OUT CLERK [facility] 12-12-2023 20:20-0400 Blood Pressure Method RAQUEL ZHONG JOB SERVICE CONSULTANT-CALL OUT CLERK [facility] 12-12-2023 20:20-0400 Body height 162.6 cm RAQUEL ZHONG JOB SERVICE CONSULTANT-CALL OUT CLERK [facility] 12-12-2023 20:20-0400 Body weight 63.6 kg RAQUEL ZHONG JOB SERVICE CONSULTANT-CALL OUT CLERK [facility] 12-12-2023 20:20-0400 Heart rate 70 /min RAQUEL FARHEEN JOB SERVICE CONSULTANT-CALL OUT CLERK [facility] 12-12-2023 19:14-0400 Diastolic Blood Pressure Non-Invasive 55 mm[Hg] ABHIJEET RAMSEY MD [facility] 12-12-2023 19:14-0400 Heart rate 74 /min ABHIJEET RAMSEY MD [facility] 12-12-2023 19:14-0400 Respiratory rate 18 /min ABHIJEET RAMSEY MD [facility] 12-12-2023 19:14-0400 Systolic Blood Pressure Non-Invasive 155 mm[Hg] ABHIJEET RAMSEY MD [facility] 12-12-2023 18:45-0400 Body temperature 100.4 [degF] ABHIJEET RAMSEY MD [facility] 12-12-2023 18:44-0400 Body temperature 99.68 [degF] ABHIJEET RAMSEY MD [facility] 12-12-2023 18:44-0400 Diastolic Blood Pressure Non-Invasive 70 mm[Hg] ABHIJEET RAMSEY MD [facility] 12-12-2023 18:44-0400 Heart rate 119 /min ABHIJEET RAMSEY MD [facility] 12-12-2023 18:44-0400 Respiratory rate 18 /min ABHIJEET RAMSEY MD [facility] 12-12-2023 18:44-0400 Systolic Blood Pressure Non-Invasive 127 mm[Hg] ABHIJEET RAMSEY MD [facility] 12-12-2023 18:40-0400 Diastolic Blood Pressure Non-Invasive 76 mm[Hg] ABHIJEET RAMSEY MD [facility] 12-12-2023 18:40-0400 Heart rate 80 /min ABHIJEET RAMSEY MD [facility] 12-12-2023 18:40-0400 Respiratory rate 16 /min ABHIJEET RAMSEY MD [facility] 12-12-2023 18:40-0400 Systolic Blood Pressure Non-Invasive 130 mm[Hg] ABHIJEET RAMSEY MD [facility] 12-12-2023 16:29-0400 Body height 162.6 cm ABHIJEET RAMSEY MD [facility] 12-12-2023 16:29-0400 Body temperature 97.88 [degF] ABHIJEET RAMSEY MD [facility] 12-12-2023 16:29-0400 Body weight 66.4 kg ABHIJEET RAMSEY MD [facility] 12-03-2023 23:34-0400 Diastolic Blood Pressure Non-Invasive 51 mm[Hg] NEHAL PIERCE MD [facility] 12-03-2023 23:34-0400 Heart rate 66 /min NEHAL PIERCE MD [facility] 12-03-2023 23:34-0400 Respiratory rate 16 /min NEHAL PIERCE MD [facility] 12-03-2023 23:34-0400 Systolic Blood Pressure Non-Invasive 134 mm[Hg] NEHAL PIERCE MD [facility] 12-03-2023 22:52-0400 Diastolic Blood Pressure Non-Invasive 89 mm[Hg] NEHAL PIERCE MD [facility] 12-03-2023 22:52-0400 Systolic Blood Pressure Non-Invasive 136 mm[Hg] NEHAL PIERCE MD [facility] 12-03-2023 22:46-0400 Diastolic Blood Pressure Non-Invasive 68 mm[Hg] NEHAL PIERCE MD [facility] 12-03-2023 22:46-0400 Heart rate 68 /min NEHAL PIERCE MD [facility] 12-03-2023 22:46-0400 Systolic Blood Pressure Non-Invasive 163 mm[Hg] NEHAL PIERCE MD [facility] 12-03-2023 22:04-0400 Heart rate 75 /min NEHAL PIERCE MD [facility] 12-03-2023 22:04-0400 Respiratory rate 18 /min NEHAL PIERCE MD [facility] 12-03-2023 21:06-0400 Body temperature 98.42 [degF] NEHAL PIERCE MD [facility] 12-03-2023 21:06-0400 Respiratory rate 18 /min NEHAL PIERCE MD [facility] 06-19-2023 10:49-0500 Body temperature 98.42 [degF] ABHIJEET RAMSEY MD [facility] 06-19-2023 10:49-0500 Diastolic Blood Pressure Non-Invasive 70 mm[Hg] ABHIJEET RAMSEY MD [facility] 06-19-2023 10:49-0500 Heart rate 84 /min ABHIJEET RAMSEY MD [facility] 06-19-2023 10:49-0500 Respiratory rate 18 /min ABHIJEET RAMSEY MD [facility] 06-19-2023 10:49-0500 Systolic Blood Pressure Non-Invasive 176 mm[Hg] ABHIJEET RAMSEY MD [facility] 03-29-2023 10:05-0500 Diastolic Blood Pressure Non-Invasive 70 mm[Hg] DESMOND WILLIAMSON MD FACP [facility] 03-29-2023 10:05-0500 Systolic Blood Pressure Non-Invasive 149 mm[Hg] DESMOND WILLIAMSON MD FACP [facility] 03-29-2023 06:43-0500 Body temperature 97.7 [degF] DESMOND WILLIAMSON MD FACP [facility] 03-29-2023 06:43-0500 Diastolic Blood Pressure Non-Invasive 50 mm[Hg] DESMOND WILLIAMSON MD FACP [facility] 03-29-2023 06:43-0500 Heart rate 48 /min DESMOND WILLIAMSON MD FACP [facility] 03-29-2023 06:43-0500 Reason For Taking VItal Signs DESMOND WILLIAMSON MD FACP [facility] 03-29-2023 06:43-0500 Respiratory rate 18 /min DESMOND WILLIAMSON MD FACP [facility] 03-29-2023 06:43-0500 Systolic Blood Pressure Non-Invasive 144 mm[Hg] DESMOND WILLIAMSON MD FACP [facility] 03-28-2023 20:05-0500 Body temperature 97.7 [degF] DESMOND WILLIAMSON MD FACP [facility] 03-28-2023 20:05-0500 Diastolic Blood Pressure Non-Invasive 48 mm[Hg] DESMOND WILLIAMSON MD FACP [facility] 03-28-2023 20:05-0500 Heart rate 52 /min DESMOND WILLIAMSON MD FACP [facility] 03-28-2023 20:05-0500 Reason For Taking VItal Signs DESMOND WILLIAMSON MD FACP [facility] 03-28-2023 20:05-0500 Respiratory rate 18 /min DESMOND WILLIAMSON MD FACP [facility] 03-28-2023 20:05-0500 Systolic Blood Pressure Non-Invasive 138 mm[Hg] DESMOND WILLIAMSON MD FACP [facility] 03-28-2023 09:39-0500 Body temperature 98.06 [degF] DESMOND WILLIAMSON MD FACP [facility] 03-28-2023 09:39-0500 Heart rate 72 /min DESMOND WILLIAMSON MD FACP [facility] 03-28-2023 09:39-0500 Reason For Taking VItal Signs DESMNOD WILLIAMSON MD FACP [facility] 03-28-2023 09:39-0500 Respiratory rate 18 /min DESMOND WILLIAMSON MD FACP [facility] 03-27-2023 20:11-0500 Heart rate 63 /min DESMOND WILLIAMSON MD FACP [facility] 03-27-2023 07:19-0500 Heart rate 52 /min DESMOND WILLIAMSON MD FACP [facility] 03-26-2023 06:45-0500 Heart rate 52 /min DESMOND WILLIAMSON MD FACP [facility] 03-25-2023 20:47-0500 Heart rate 55 /min DESMOND WILLIAMSON MD FACP [facility] 03-25-2023 09:40-0500 Heart rate 60 /min DESMOND WILLIAMSON MD FACP [facility] 03-24-2023 08:36-0500 Heart rate 58 /min DESMOND WILLIAMSON MD FACP [facility] 03-14-2023 19:57-0500 Mean blood pressure 87 mm[Hg] DESMOND WILLIAMSON MD FACP [facility] 03-14-2023 18:13-0500 Body height 162.6 cm DESMOND WILLIAMSON MD FACP [facility] 03-14-2023 18:13-0500 Body weight 63.1 kg DESMOND WILLIAMSON MD FACP [facility] 03-14-2023 18:13-0500 Body weight 23.87 kg/m2 DESMOND WILLIAMSON MD FACP [facility] 03-14-2023 14:34-0500 Blood Pressure Cuff Size TAMIKA GRACE MD [address] [place] [address] 03-14-2023 14:34-0500 Blood Pressure Location TAMIKA GRACE MD [address] [place] [address] 03-14-2023 14:34-0500 Blood Pressure Method TAMIKA GRACE MD [address] [place] [address] 03-14-2023 14:34-0500 Body temperature 97.34 [degF] TAMIKA GRACE MD [address] [place] [address] 03-14-2023 14:34-0500 Diastolic Blood Pressure Non-Invasive 51 mm[Hg] TAMIKA GRACE MD [address] [place] [address] 03-14-2023 14:34-0500 Heart rate 68 /min TAMIKA GRACE MD [address] [place] [address] 03-14-2023 14:34-0500 Reason For Taking VItal Signs TAMIKA GRACE MD [address] [place] [address] 03-14-2023 14:34-0500 Respiratory rate 18 /min TAMIKA GRACE MD [facility] 03-14-2023 14:34-0500 Systolic Blood Pressure Non-Invasive 116 mm[Hg] TAMIKA GRACE MD [address] [place] [address] 03-14-2023 13:21-0500 Heart rate 60 /min TAMIKA GRACE MD [address] [place] [address] 03-14-2023 10:05-0500 Blood Pressure Cuff Size TAMIKA GRACE MD [address] [place] [address]-29-2023 10:05-0500 Blood Pressure Location TAMIKA GRACE MD [facility] 03-14-2023 10:05-0500 Blood Pressure Method TAMIKA GRACE MD [address] [place] [address] 03-14-2023 10:05-0500 Body temperature 97.7 [degF] TAMIKA GRACE MD [address] [place] [address] 03-14-2023 10:05-0500 Diastolic Blood Pressure Non-Invasive 78 mm[Hg] TAMIKA GRACE MD [address] [place] [address] 03-14-2023 10:05-0500 Heart rate 69 /min TAMIKA GRACE MD [address] [place] [address] 03-14-2023 10:05-0500 Reason For Taking VItal Signs TAMIKA GRACE MD [address] [place] [address] 03-14-2023 10:05-0500 Respiratory rate 18 /min TAMIKA GRACE MD [address] [place] [address] 03-14-2023 10:05-0500 Systolic Blood Pressure Non-Invasive 125 mm[Hg] TAMIKA GRACE MD [address] [place] [address] 03-14-2023 09:23-0500 Diastolic Blood Pressure Non-Invasive 62 mm[Hg] TAMIKA GRACE MD [address] [place] [address] 03-14-2023 09:23-0500 Systolic Blood Pressure Non-Invasive 135 mm[Hg] TAMIKA GRACE MD [address] [place] [address] 03-14-2023 08:00-0500 Heart rate 64 /min TAMIKA GRACE MD [facility] 03-12-2023 23:05-0500 Heart rate 71 /min TAMIKA GRACE MD [facility] 03-12-2023 19:57-0500 Heart rate 64 /min TAMIKA GRACE MD [facility] 03-12-2023 10:06-0500 Heart rate 67 /min TAMIKA GRACE MD [facility] 03-10-2023 17:55-0500 Body height 162.6 cm TAMIKA GRACE MD [facility] 03-10-2023 17:55-0500 Body weight 66.8 kg TAMIKA GRACE MD [facility] 03-10-2023 17:55-0500 Body weight 25.27 kg/m2 TAMIKA GRACE MD [facility] 03-10-2023 16:27-0500 Diastolic Blood Pressure Non-Invasive 77 mm[Hg] REGINALD MCCALLUM MD [facility] 03-10-2023 16:27-0500 Respiratory rate 16 /min REGINALD MCCALLUM MD [facility] 03-10-2023 16:27-0500 Systolic Blood Pressure Non-Invasive 174 mm[Hg] REGINALD MCCALLUM MD [facility] 03-10-2023 14:37-0500 Diastolic Blood Pressure Non-Invasive 70 mm[Hg] REGINALD MCCALLUM MD [facility] 03-10-2023 14:37-0500 Heart rate 90 /min REGINALD MCCALLUM MD [facility] 03-10-2023 14:37-0500 Mean blood pressure 88 mm[Hg] REGINALD MCCALLUM MD [facility] 03-10-2023 14:37-0500 Reason For Taking VItal Signs REGINALD MCCALLUM MD [facility] 03-10-2023 14:37-0500 Respiratory rate 16 /min REGINALD MCCALLUM MD [facility] 03-10-2023 14:37-0500 Systolic Blood Pressure Non-Invasive 142 mm[Hg] REGINALD MCCALLUM MD [facility] 03-10-2023 13:47-0500 Diastolic Blood Pressure Non-Invasive 76 mm[Hg] REGINALD MCCALLUM MD [facility] 03-10-2023 13:47-0500 Heart rate 71 /min REGINALD MCCALLUM MD [facility] 03-10-2023 13:47-0500 Systolic Blood Pressure Non-Invasive 167 mm[Hg] REGINALD MCCALLUM MD [facility] 03-10-2023 12:34-0500 Mean blood pressure 76 mm[Hg] REGINALD MCCALLUM MD [facility] 03-10-2023 12:34-0500 Reason For Taking VItal Signs REGINALD MCCALLUM MD [facility] 03-10-2023 12:02-0500 Mean blood pressure 94 mm[Hg] REGINALD MCCALLUM MD [facility] 03-10-2023 10:58-0500 Heart rate 75 /min REGINALD MCCALLUM MD [facility] 03-10-2023 10:58-0500 Reason For Taking VItal Signs REGINALD MCCALLUM MD [facility] 03-10-2023 10:58-0500 Respiratory rate 16 /min REGINALD MCCALLUM MD [facility] 03-10-2023 09:49-0500 Blood Pressure Location REGINALD MCCALLUM MD [facility] 03-10-2023 09:49-0500 Body temperature 97.52 [degF] REGINALD MCCALLUM MD [facility] 01-26-2023 06:30-0400 Blood Pressure Cuff Size COSME FROMMELT DO [facility] 01-26-2023 06:30-0400 Blood Pressure Location COSME FROMMELT DO [facility] 01-26-2023 06:30-0400 Blood Pressure Method COSME FROMMELT D O [facility] 01-26-2023 06:30-0400 Diastolic Blood Pressure Non-Invasive 73 1 COSME FROMMELT DO [facility] 01-26-2023 06:30-0400 Heart rate 80 /min COSME FROMMELT DO [facility] 01-26-2023 06:30-0400 Respiratory rate 18 /min COSME FROMMELT DO [facility] 01-26-2023 06:30-0400 Systolic Blood Pressure Non-Invasive 170 1 COSME FROMMELT DO [facility] 01-26-2023 05:04-0400 Blood Pressure Cuff Size COSME FROMMELT DO [facility] 01-26-2023 05:04-0400 Blood Pressure Location COSME FROMMELT DO [facility] 01-26-2023 05:04-0400 Blood Pressure Method COSME FROMMELT D O [facility] 01-26-2023 05:04-0400 Body height 160 cm COSME FROMMELT DO [facility] 01-26-2023 05:04-0400 Body temperature 96.98 [degF] [employer] [facility] 01-26-2023 05:04-0400 Body weight 61.4 kg [employer] [facility] 01-26-2023 05:04-0400 Diastolic Blood Pressure Non-Invasive 80 1 [employer] [facility] 01-26-2023 05:04-0400 Heart rate 81 /min [employer] [facility] 01-26-2023 05:04-0400 Reason For Taking VItal Signs [employer] [facility] 01-26-2023 05:04-0400 Respiratory rate 18 /min [employer] [facility] 01-26-2023 05:04-0400 Systolic Blood Pressure Non-Invasive 163 1 [employer] [facility] 12-27-2022 20:06-0400 Diastolic Blood Pressure Non-Invasive 57 1 RO MILES DO [facility] 12-27-2022 20:06-0400 Heart rate 62 /min RO MILES DO [facility] 12-27-2022 20:06-0400 Respiratory rate 15 /min RO MILES DO [facility] 12-27-2022 20:06-0400 Systolic Blood Pressure Non-Invasive 143 1 RO MILES DO [facility] 12-27-2022 19:24-0400 Diastolic Blood Pressure Non-Invasive 61 1 RO MILES DO [facility] 12-27-2022 19:24-0400 Heart rate 67 /min RO MILES DO [facility] 12-27-2022 19:24-0400 Respiratory rate 16 /min RO MILES DO [facility] 12-27-2022 19:24-0400 Systolic Blood Pressure Non-Invasive 133 1 RO MILES DO [facility] 12-27-2022 18:49-0400 Diastolic Blood Pressure Non-Invasive 54 1 RO MILES DO [facility] 12-27-2022 18:49-0400 Heart rate 78 /min RO MILES DO [facility] 12-27-2022 18:49-0400 Respiratory rate 14 /min RO MILES DO [facility] 12-27-2022 18:49-0400 Systolic Blood Pressure Non-Invasive 141 1 RO MILES DO [facility] 12-27-2022 18:21-0400 Reason For Taking VItal Signs RO MILES DO [facility] 12-27-2022 17:32-0400 Body temperature 97.16 [degF] RO MILES DO [facility] 12-27-2022 17:32-0400 Heart rate 72 /min RO MILES DO [facility] 09-27-2021 13:03-0400 Diastolic blood pressure 69 mm[Hg] [facility] Work Phone: 09-27-2021 13:03-0400 Heart rate 72 /min [facility] Work Phone: 09-27-2021 13:03-0400 Respiratory rate 15 /min [facility] Work Phone: 09-27-2021 13:03-0400 SaO2% (BldA) [Mass fraction] 95 % [facility] Work Phone: 09-27-2021 13:03-0400 Systolic blood pressure 124 mm[Hg] [facility] Work Phone: 09-27-2021 10:08-0400 Body height 162.56 cm [facility] Work Phone: 09-27-2021 10:08-0400 Body mass index (BMI) [Ratio] 25.7 kg/m2 [facility] Work Phone: 09-27-2021 10:08-0400 Body temperature 97.8 [degF] [facility] Work Phone: 09-27-2021 10:08-0400 Body weight 68.03 kg [facility] Work Phone: Encounters Encounter Date Encounter Type Care Provider Facility Start: 02-12-2025 ambulatory MARCO PENNY JOB SERVICE CONSULTANT-CALL OUT CLERK Fa cility:[facility] Start: 02-11-2025 End: 02-11-2025 ambulatory MARCO PENNY JOB SERVICE CONSULTANT-CALL OUT CLERK Facility:[facility] Start: 02-11-2025 End: 02-11-2025 Patient encounter procedure DAVION VARGAS MD [facility] Start: 05-26-2024 ambulatory Venkat Montano Facility:[facility] Start: 05-26-2024 End: 05-26-2024 ambulatory Perico Maddox Facility:[facility] Start: 05-22-2024 ambulatory PERICO MADDOX MD Faci lity:[facility] Start: 01-09-2024 End: 01-09-2024 Patient encounter procedure JOLANTA DCBLAISE JOB SERVICE CONSULTANT-CALL OUT CLERK [facility] Start: 12-12-2023 End: 12-13-2023 Emergency department patient visit MEY Isidro VARSHA JOB SERVICE CONSULTANT-CALL OUT CLERK Facility:[facility] Start: 12-12-2023 End: 12-13-2023 Observation RAQUEL RIVERARUFF JOB SERVICE CONSULTANT-CALL OUT CLERK [facility] Start: 12-12-2023 End: 12-12-2023 Emergency department patient visit ABHIJEET RAMSEY MD [facility] Start: 12-03-2023 End: 12-03-2023 Emergency department patient visit NEHAL PIERCE MD [facility] Start: 09-05-2023 End: 09-05-2023 ambulatory MEY MADDOX JOB SERVICE CONSULTANT-CALL OUT CLERK Facility:[facility] Start: 09-05-2023 End: 09-05-2023 Patient encounter procedure MEY MADDOX JOB SERVICE CONSULTANT-CALL OUT CLERK [facility] Start: 08-07-2023 End: 10-19-2023 ambulatory ROEL VASQUEZ DO Facility:[facility] Start: 08-07-2023 End: 10-19-2023 Coordination of care plan ROEL VASQUEZ DO [facility] Start: 06-22-2023 End: 08-06-2023 ambulatory MEY MADDOX JOB SERVICE CONSULTANT-CALL OUT CLERK Facility:[facility] Start: 06-19-2023 End: 06-19-2023 Emergency department patient visit ABHIJEET RAMSEY MD [facility] Start: 06-08-2023 End: 06-08-2023 ambulatory MEY MADDOX JOB SERVICE CONSULTANT-CALL OUT CLERK Facility:[facility] Start: 03-14-2023 End: 03-29-2023 Evaluation and management of inpatient JONO VALLES MD Facility:[facility] Start: 03-10-2023 End: 03-14-2023 Evaluation and management of inpatient TAMIKA GRACE MD [facility] Start: 03-10-2023 End: 03-10-2023 Emergency department patient visit REGINALD MCCALLUM MD [facility] Start: 02-27-2023 End: 02-27-2023 ambulatory MEY MADDOX JOB SERVICE CONSULTANT-CALL OUT CLERK Facility:[facility] Start: 02-21-2023 End: 02-21-2023 ambulatory MEY MADDOX JOB SERVICE CONSULTANT-CALL OUT CLERK Facility:[facility] Start: 01-26-2023 End: 01-26-2023 Emergency department patient visit COSME MDADOXBelinda DO [facility] Start: 12-27-2022 End: 12-27-2022 Emergency department patient visit RO MILES DO [facility] Start: 10-27-2022 End: 10-27-2022 ambulatory [facility] Work Phone: Start: 10-27-2022 End: 10-27-2022 Patient encounter procedure [facility]-Pulmonary Services/Neurology Work Phone: Start: 08-18-2022 End: 08-22-2022 Outreach Lab MEDARDO GARCIA DO [facility] Start: 09-27-2021 End: 09-27-2021 Emergency department patient visit [facility]-Emergency Department Start: 09-27-2021 End: 09-27-2021 Patient encounter procedure Annette Lr APRN.CALL OUT CLERK Work Phone: [facility] Care Comment on above: Injury of head, init ial encounter (Primary Dx) Start: 07-15-2021 End: 07-15-2021 Patient encounter procedure JENI HARRINGTON MD [facility] Start: 06-20-2021 End: 06-20-2021 Patient encounter procedure [facility] Start: 05-13-2021 End: 05-13-2021 Patient encounter procedure MEDARDO GARCIA DO [facility] Procedures Date Procedure Procedure Detail Performing Clinician Start: 09-27-2021 CT cervical spine wi thout contrast Start: 09-27-2021 CT of face Start: 09-27-2021 CT of head without contrast Start: 06-20-2021 Magnetic resonance angiography of neck without contrast Start: 06-20-2021 MRI of brain without contrast Start: 11-22-2012 Laminectomy and discectomy MEDARDO GARCIA DO Start: 11-23-2003 Cholecystectomy MEDARDO GARCIA DO Start: 07-21-1973 Appendectomy MEDARDO MALDONADO DO Start: 07-21-1973 Laparotomy MEDARDO MALDONADO DO Hysterectomy MEDARDO GARCIA D O Mastectomy of left breast IA CLYDE JOSE DO Plan of Treatment Date Care Activity Detail Author Start: 12-15-2021 Influenza vaccination INFLUENZ A (Season Ended) [facility] Start: 08-04-2021 COVID-19 VACCINE (3 - Booster for Joanne series) COVID-19 VACCINE (3 - Booster for Joanne series) [facility] Start: 04-16-2021 ADVANCE DIRECTIVE DISCUSSION ADVANCE DIRECTIVE DISCUSSION [facility] Start: 11-28-2000 BONE DENSITY BONE DENSITY [facility] Start: 11-28-2000 PNEUMOCOCCAL: 65+ (1 - PCV) PNEUMOCOCCAL: 65+ (1 - PCV) [facility] Start: 11-28-1985 SHINGRIX VACCINE (1 of 2) DAI GRIX VACCINE (1 of 2) [facility] Start: 11-28-1980 DIABETES SCREEN DIABETES SCREEN [facility] Start: 11-28-1954 Urine microalbumin profile DTAP,TDAP,TD (1 - Tdap) [facility] Patient Education ED Head Injury (Adult) ED Hematoma [facility] Work Phone: Patient referral [facility] Work Phone: Immunizations Immunization Date Immunization Notes Care Provider Aretha pawannitesh 12-27-2022 tetanus toxoid, redu stephanie diphtheria toxoid, and acellular pertussis vaccine, adsorbed RO MILES DO [facility] 04-05-2021 SARS-CoV-2 (COVID-19 ) Ad26 vaccine, recombinant MEDARDO GARCIA DO [facility] 10-07-2020 SARS-CoV-2 (COVID-19 ) Ad26 vaccine, recombinant MEDARDO GARCIA DO [facility] Comment on above: Result Comment: 2021: [id number] Payers Date Payer Category Payer Private Health Insurance 278 [id number] 2024 Self-pay [id number] 2023 Unknown [id number] 2023 Medicare [id number] 2000 Medicare [id number] 2000 Medicare MEDICARE MEDICAR E B [id number] 2000-[place] [address] Medicare [id number] 2000 Unknown [id number] 1935 Unknown [id number] [id number] .627 1935 Unknown [id number] 2.16.840.1.562392.3.579.2 .1935 Unknown [id number] 2.16.840.1.329050.3.579.2 .1935 Unknown [id number] 2.16.840.1.740264.3.579.2 .1935 Unknown [id number] 2.16.840.1.806046.3.579.2 .1935 Unknown [id number] 2..840.1.210443.3.579.2 1935 Unknown [id number] 2..840.1.634176.3.579.2 1935 Unknown [id number] 2.840.1.167444.3.579.2 .1935 Unknown [id number] 2.840.1.206316.3.579.2 .1935 Unknown [id number] 2.840.1.769267.3.579.2 1935 Unknown [id number] 2.16.840.1.427774.3.579.2 .1935 Unknown [id number] 2.840.1.252665.3.579.2 .1935 Unknown [id number] 2.16.840.1.585529.3.579.2 .1935 Unknown [id number] 2.16.840.1.073054.3.579.2 .1935 Unknown [id number] 2.16.840.1.660978.3.579.2 .1935 Unknown [id number] 2.16840.1.281129.3.579.2 .627 1935 Unknown [id number] 2.16.840.1.832198.3.579.2 .627 Unknown [id number] 2.16.840.1.469584.3.579.2 .462 Unknown [id number] 2.16.840.1.493895.3.579.2 .462 Social History Date Type Detail Facility Start: 12-10-2018 End: 12-12-2024 Never smoked tobacco (finding) [facility] Start: 1935 Sex Assigned At Female A [facility] Start: 09-27-2021 Tobacco smoking stat [facility] Unknown if ever smoked [facility] Start: 1935 Sex Assigned At Not on file [facility] Start: 09-17-2021 End: 09-27-2021 Exposure to SARS-CoV-2 (event) Not sure [facility] Work Phone: Sexual Orientation [facility] Start: 10-09-2018 Sex Female (finding) [facility] Medical Equipment Procedure Code Equipment Code Equipment Original Text Equipment Identifier Dates See Instructions , dx E11.65, Z79.4; check BGT 4 times per day, injects insulin 4x per day; dispense 150 test strips, 11 refills, # 150 EA, 11 Refill(s), Pharmacy: [address], 159, cm, 05/10/21 8:01:00 EST, Height, 70.5, kg, 05/10/21 8:01:... Start: 05-18-2021 See Instructions , dx E11.65; doses inslulin 4x/day, dispense 150 pen needles (5mm 31 G) with 11 refills., # 150 EA, 11 Refill(s), Pharmacy: [address], Diabetes mellitus out of control, 159, cm, 05/10/21 8:01:00 EST, Height, 70.5, kg, ... Start: 05-18-2021 See Instructions , dx E11.65; doses inslulin 4x/day, dispense 150 pen needles (5mm 31 G) with 11 refills., # 150 EA, 11 Refill(s), Pharmacy: [address], Diabetes mellitus out of control, 159, cm, 05/10/21 8:01:00 EST, Height, 70.5, kg, ... Start: 05-18-2021 See Instructions , dx E11.65, Z79.4; check BGT 4 times per day, injects insulin 4x per day; dispense 150 test strips, 11 refills, # 150 EA, 11 Refill(s), Pharmacy: [facility] #[id number], 159, cm, 04/04/22 10:05:00 EST, Height, 66.8, kg, 04/04/22 10:05:00 EST... Start: 08-02-2022 See Instructions , dx E11.65; doses inslulin 4x/day, dispense 150 pen needles (5mm 31 G) with 11 refills., # 150 EA, 11 Refill(s), Pharmacy: [address], Diabetes mellitus out of control, 159, cm, 05/10/21 8:01:00 EST, Height, 70.5, kg, 05/10/21 8:01:00 EST, Dosing Weight Start: 05-18-2021 See Instructions , dx E11.65, Z79.4; check BGT 4 times per day, injects insulin 4x per day; dispense 150 test strips, 11 refills, # 150 EA, 11 Refill(s), Pharmacy: [facility] #[id number], 159, cm, 04/04/22 10:05:00 EST, Height, 66.8, kg, 04/04/22 10:05:00 EST, Dosing Weight Start: 08-02-2022 See Instructions , dx E11.65; doses inslulin 4x/day, dispense 150 pen needles (5mm 31 G) with 11 refills., # 150 EA, 11 Refill(s), Pharmacy: [address], Diabetes mellitus out of control, 159, cm, 05/10/21 8:01:00 EST, Height, 70.5, kg, 05/10/21 8:01:00 EST, Dosing Weight Start: 05-18-2021 See Instructions , dx E11.65, Z79.4; check BGT 4 times per day, injects insulin 4x per day; dispense 150 test strips, 11 refills, # 150 EA, 11 Refill(s), Pharmacy: [facility] #[id number], 159, cm, 04/04/22 10:05:00 EST, Height, 66.8, kg, 04/04/22 10:05:00 EST, Dosing Weight Start: 08-02-2022 See Instructions , dx E11.65, Z79.4; check BGT 4 times per day, injects insulin 4x per day; dispense 150 test strips, 11 refills, # 150 EA, 11 Refill(s), Pharmacy: [facility] #[id number], 160, cm, 02/21/23 13:38:00 EST, Height, 64.3, kg, 02/21/23 13:38:00 EST, Dosing Weight Start: 02-21-2023 See Instructions , dx E11.65; doses inslulin 4x/day, dispense 150 pen needles (5mm 31 G) with 11 refills., # 150 EA, 11 Refill(s), Pharmacy: [facility] #[id number], Diabetes mellitus out of control, 160, cm, 02/21/23 13:38:00 EST, Height, 64.3, kg, 02/21/23 13:38:00 EST, Dosing Weight Start: 02-21-2023 See Instructions , 1 bottle of 100, 90 day supply to test blood sugars once daily. Inulix Freestyle test strips., # 100 EA, 3 Refill(s), Pharmacy: [facility]/pharmacy #[id number], Type II diabetes mellitus, 162.6, cm, 03/14/23 18:13:00 EST, Height, 65.8, kg, 04/02/23 12:36:00 EST, Dosing Weight Start: 05-07-2023 See Instructions , Please provide insurance preferred test strips to match glucose monitor. Test blood sugars once daily., # 100 EA, 3 Refill(s), Pharmacy: [facility], Diabetes mellitus with microalbuminuria Diabetic peripheral vascular disease, 158.5, cm, 05/28/23 13:41:00 EST, Height, 64.5, kg, 05/28/23 13:41:00 EST, Dosing Weight Start: 06-08-2023 DROPLET NDL 31GX 5MM PEN, 0 Refill(s), 63.1 Start: 04-02-2023 See Instructions , test blood sugars once daily, 100 Each, 90 day supply, # 100 EA, 3 Refill(s), Pharmacy: [facility], Diabetes mellitus with microalbuminuria Diabetic peripheral vascular disease, 158.5, cm, 05/28/23 13:41:00 EST, Height, 64.5, kg, 05/28/23 13:41:00 EST, Dosing Weight Start: 06-08-2023 See Instructions , 1 bottle of 100, 90 day supply to test blood sugars once daily. Inulix Freestyle test strips., # 100 EA, 3 Refill(s), Pharmacy: [facility]/pharmacy #[id number], Type II diabetes mellitus, 162.6, cm, 03/14/23 18:13:00 EST, Height, 65.8, kg, 04/02/23 12:36:00 EST, Dosing Weight Start: 05-07-2023 See Instructions , Please provide insurance preferred test strips to match glucose monitor. Test blood sugars once daily., # 100 EA, 3 Refill(s), Pharmacy: [facility], Diabetes mellitus with microalbuminuria Diabetic peripheral vascular disease, 158.5, cm, 05/28/23 13:41:00 EST, Height, 64.5, kg, 05/28/23 13:41:00 EST, Dosing Weight Start: 06-08-2023 DROPLET NDL 31GX 5MM PEN, 0 Refill(s), 63.1 Start: 04-02-2023 See Instructions , test blood sugars once daily, 100 Each, 90 day supply, # 100 EA, 3 Refill(s), Pharmacy: [facility], Diabetes mellitus with microalbuminuria Diabetic peripheral vascular disease, 158.5, cm, 05/28/23 13:41:00 EST, Height, 64.5, kg, 05/28/23 13:41:00 EST, Dosing Weight Start: 06-08-2023 See Instructions , 1 bottle of 100, 90 day supply to test blood sugars once daily. Inulix Freestyle test strips., # 100 EA, 3 Refill(s), Pharmacy: [facility]/pharmacy #[id number], Type II diabetes mellitus, 162.6, cm, 03/14/23 18:13:00 EST, Height, 65.8, kg, 04/02/23 12:36:00 EST, Dosing Weight Start: 05-07-2023 See Instructions , Please provide insurance preferred test strips to match glucose monitor. Test blood sugars once daily., # 100 EA, 3 Refill(s), Pharmacy: [facility], Diabetes mellitus with microalbuminuria Diabetic peripheral vascular disease, 158.5, cm, 05/28/23 13:41:00 EST, Height, 64.5, kg, 05/28/23 13:41:00 EST, Dosing Weight Start: 06-08-2023 DROPLET NDL 31GX 5MM PEN, 0 Refill(s), 63.1 Start: 04-02-2023 See Instructions , test blood sugars once daily, 100 Each, 90 day supply, # 100 EA, 3 Refill(s), Pharmacy: [facility], Diabetes mellitus with microalbuminuria Diabetic peripheral vascular disease, 158.5, cm, 05/28/23 13:41:00 EST, Height, 64.5, kg, 05/28/23 13:41:00 EST, Dosing Weight Start: 06-08-2023 See Instructions , 1 bottle of 100, 90 day supply to test blood sugars once daily. Inulix Freestyle test strips., # 100 EA, 3 Refill(s), Pharmacy: [facility]/pharmacy #[id number], Type II diabetes mellitus, 162.6, cm, 03/14/23 18:13:00 EST, Height, 65.8, kg, 04/02/23 12:36:00 EST, Dosing Weight Start: 05-07-2023 See Instructions , Please provide insurance preferred test strips to match glucose monitor. Test blood sugars once daily., # 100 EA, 3 Refill(s), Pharmacy: [facility], Diabetes mellitus with microalbuminuria Diabetic peripheral vascular disease, 158.5, cm, 05/28/23 13:41:00 EST, Height, 64.5, kg, 05/28/23 13:41:00 EST, Dosing Weight Start: 06-08-2023 DROPLET NDL 31GX 5MM PEN, 0 Refill(s), 63.1 Start: 04-02-2023 See Instructions , test blood sugars once daily, 100 Each, 90 day supply, # 100 EA, 3 Refill(s), Pharmacy: [facility], Diabetes mellitus with microalbuminuria Diabetic peripheral vascular disease, 158.5, cm, 05/28/23 13:41:00 EST, Height, 64.5, kg, 05/28/23 13:41:00 EST, Dosing Weight Start: 06-08-2023 See Instructions , 1 bottle of 100, 90 day supply to test blood sugars once daily. Inulix Freestyle test strips., # 100 EA, 3 Refill(s), Pharmacy: [facility]/pharmacy #[id number], Type II diabetes mellitus, 162.6, cm, 03/14/23 18:13:00 EST, Height, 65.8, kg, 04/02/23 12:36:00 EST, Dosing Weight Start: 05-07-2023 See Instructions , Please provide insurance preferred test strips to match glucose monitor. Test blood sugars once daily., # 100 EA, 3 Refill(s), Pharmacy: [facility], Diabetes mellitus with microalbuminuria Diabetic peripheral vascular disease, 158.5, cm, 05/28/23 13:41:00 EST, Height, 64.5, kg, 05/28/23 13:41:00 EST, Dosing Weight Start: 06-08-2023 DROPLET NDL 31GX 5MM PEN, 0 Refill(s), 63.1 Start: 04-02-2023 See Instructions , test blood sugars once daily, 100 Each, 90 day supply, # 100 EA, 3 Refill(s), Pharmacy: [facility], Diabetes mellitus with microalbuminuria Diabetic peripheral vascular disease, 158.5, cm, 05/28/23 13:41:00 EST, Height, 64.5, kg, 05/28/23 13:41:00 EST, Dosing Weight Start: 06-08-2023 See Instructions , 1 bottle of 100, 90 day supply to test blood sugars once daily. Inulix Freestyle test strips., # 100 EA, 3 Refill(s), Pharmacy: [facility]/pharmacy #[id number], Type II diabetes mellitus, 162.6, cm, 03/14/23 18:13:00 EST, Height, 65.8, kg, 04/02/23 12:36:00 EST, Dosing Weight Start: 05-07-2023 See Instructions , Please provide insurance preferred test strips to match glucose monitor. Test blood sugars once daily., # 100 EA, 3 Refill(s), Pharmacy: [facility], Diabetes mellitus with microalbuminuria Diabetic peripheral vascular disease, 158.5, cm, 05/28/23 13:41:00 EST, Height, 64.5, kg, 05/28/23 13:41:00 EST, Dosing Weight Start: 06-08-2023 DROPLET NDL 31GX 5MM PEN, 0 Refill(s), 63.1 Start: 04-02-2023 See Instructions , test blood sugars once daily, 100 Each, 90 day supply, # 100 EA, 3 Refill(s), Pharmacy: [facility], Diabetes mellitus with microalbuminuria Diabetic peripheral vascular disease, 158.5, cm, 05/28/23 13:41:00 EST, Height, 64.5, kg, 05/28/23 13:41:00 EST, Dosing Weight Start: 06-08-2023 See Instructions , 1 bottle of 100, 90 day supply to test blood sugars once daily. Inulix Freestyle test strips., # 100 EA, 3 Refill(s), Pharmacy: [facility]/pharmacy #[id number], Type II diabetes mellitus, 162.6, cm, 03/14/23 18:13:00 EST, Height, 65.8, kg, 04/02/23 12:36:00 EST, Dosing Weight Start: 05-07-2023 See Instructions , Please provide insurance preferred test strips to match glucose monitor. Test blood sugars once daily., # 100 EA, 3 Refill(s), Pharmacy: [facility], Diabetes mellitus with microalbuminuria Diabetic peripheral vascular disease, 158.5, cm, 05/28/23 13:41:00 EST, Height, 64.5, kg, 05/28/23 13:41:00 EST, Dosing Weight Start: 06-08-2023 DROPLET NDL 31GX 5MM PEN, 0 Refill(s), 63.1 Start: 04-02-2023 See Instructions , test blood sugars once daily, 100 Each, 90 day supply, # 100 EA, 3 Refill(s), Pharmacy: [facility], Diabetes mellitus with microalbuminuria Diabetic peripheral vascular disease, 158.5, cm, 05/28/23 13:41:00 EST, Height, 64.5, kg, 05/28/23 13:41:00 EST, Dosing Weight Start: 06-08-2023 See Instructions , Freestyle Optium Shoshana test strips. Use to check blood sugar once daily. 1 bottle of 100. Dx E11.51, # 1 EA, 11 Refill(s), Pharmacy: [facility], 157.8, cm, 07/29/24 8:38:00 EDT, Height, 64.8, kg, 08/29/24 15:07:00 EDT, Dosing Weight Start: 09-19-2024 See Instructions , dx E11.65, Z74.9 test blood sugars 4 times daily (before meals and bedtime) , 300 Each blood glucose test strips, 90 day supply, 3 refills match to glucometer, # 300 EA, 3 Refill(s), Pharmacy: [facility], Type II diabetes mellitus, 157.8, cm, 07/29/24 8:38:00 EDT, Height, 66.2, kg, 07/29/24 8:38:00 EDT, Dosing Weight Start: 07-29-2024 DROPLET NDL 31GX 5MM PEN, 0 Refill(s), 63.1 Start: 04-02-2023 See Instructions , dx E11.65, Z74.9 test blood sugars 4 times daily (before meals and bedtime) , 300 Each lancets, 90 day supply, 3 refills match to glucometer, # 300 EA, 3 Refill(s), Pharmacy: [facility], Diabetes mellitus with microalbuminuria Diabetic peripheral vascular disease, 157.8, cm, 07/29/24 8:38:00 EDT, Height, 66.2, kg, 07/29/24 8:38:00 EDT, Dosing Weight Start: 07-29-2024 Functional Status Date Assessment Result Facility 12-13-2023 Functional Status 1st floor bedr oom, 1st floor bathroom, 1st floor [facility]3] 12-13-2023 Functional Status Identified as high risk, Fall ID band on, Bed alert on, Door open, Room check performed [facility] 12-12-2023 Functional Status Sensory Deficits None A [facility] 12-12-2023 Functional Status Up ad maria guadalupe Talisha Camacho [facility] 12-12-2023 Functional Status Identified as high risk, Fall ID band on [facility] 12-03-2023 Functional Status Assistive Device None A [facility] 12-03-2023 Functional Status ID band on, Call device within reach, Bed in low position [facility] 06-19-2023 Functional Status Standard Safet y ID band on, Allergy Band on, Call device within reach, Bed in low position, Wheels locked, Upper/Half-Length side-rails up, Bedside Cart Locked, Safety level maintained [facility] 03-29-2023 Functional Status Other: 7AM-1PM [facility] 03-29-2023 Functional Status Sequential Com pression Device bilateral knee high applied/on [facility] 03-29-2023 Functional Status Identified as high risk, Fall ID band on, Door open, Non-Slip footwear, supervised while toileting, Room check performed [facility] 03-29-2023 Functional Status Talisha Camacho [facility] 03-29-2023 Functional Status Talisha [facility] 03-28-2023 Functional Status Talisha [facility] 03-28-2023 Functional Status Dinner Percent 100 [facility] 03-28-2023 Functional Status Mod I Talisha [facility] 03-28-2023 Functional Status Talisha [facility] 03-28-2023 Functional Status Talisha Camacho [facility] 03-28-2023 Functional Status Talisha [facility] 03-27-2023 Functional Status Positioning Repositions self [facility] 03-27-2023 Functional Status Remains up in [facility] 03-27-2023 Functional Status [facility] 03-27-2023 Functional Status [facility]o [facility] 03-27-2023 Functional Status 10 Talisha [facility] 03-27-2023 Functional Status Talisha [facility] 03-27-2023 Functional Status [facility]isha[facility]usto [facility] 03-26-2023 Functional Status [facility]isha[facility]usto [facility] 03-26-2023 Functional Status Talishaaugusto [facility] 03-26-2023 Functional Status [facility]ishaaugusto [facility] 03-26-2023 Functional Status [facility]ishaaugusto [facility] 03-26-2023 Functional Status Talisha [facility] 03-26-2023 [facility] Status Supervision [facility] Status Done [facility] Functional Status Evening Snack Percent 9 5 [facility] 03-24-2023 Functional Status Talisha [facility] Functional Status [facility] 03-24-2023 Functional Status Ambulation Patient Effo rt [facility] 03-24-2023 Functional Status [facility]ishaaugusto [facility] 03-23-2023 Functional Status [facility] Functional Status [facility]augusto [facility] 03-23-2023 Functional Status Mod I [facility] Functional Status Mod I [facility]-22-[facility] Status [facility] 03-21-2023 Functional Status Talisha traore [facility] 03-20-2023 Functional Status Talisha traore [facility] 03-20-2023 Functional Status Talisha traore [facility] 03-20-2023 Functional Status Talisha traore [facility] 03-17-2023 Functional Status [facility] 03-17-2023 Functional Status Talisha [facility] 03-16-2023 Functional Status Talisha [facility] 03-15-2023 Functional Status [facility] 03-15-2023 Functional Status Talisha Camacho [facility] 03-15-2023 Functional Status Multilevel ivone e, 1st floor bedroom, 2nd floor bedroom, 1st floor bathroom, 2nd floor bathroom, 1st floor laundry [facility] 03-14-2023 Functional Status Sensory Deficits None A [facility] 03-14-2023 Functional Status Room check performed [facility] 03-14-2023 Functional Status Talisha [facility] 03-14-2023 Functional Status Done [facility] 03-14-2023 Functional Status Breakfast Percent 85 [facility] 03-14-2023 Functional Status Supervised 1 Talisha [facility] 03-14-2023 Functional Status Talisha [facility] 03-14-2023 Functional Status Talisha Cam[facility] 03-13-2023 Functional Status Min A Talisha Ho [facility] 03-13-2023 Functional Status Talisha Cam[facility] 03-13-2023 Functional Status Talisha Camacho [facility] 03-13-2023 Functional Status Talisha Camacho [facility] 03-12-2023 Functional Status Assistive Device Walker [facility] 03-12-2023 Functional Status 100 Talisha Camacho [facility] 03-12-2023 Functional Status Talisha Camacho [facility] 03-12-2023 Functional Status Talisha Camacho [facility] 03-12-2023 Functional Status Talisha Camacho [facility] 03-12-2023 Functional Status Multilevel home [facility] 03-12-2023 [facility] Functional Status Ambulation Up with assi stance [facility] 03-11-2023 Functional Status [facility] 03-11-2023 Functional Status [facility] 03-10-2023 Functional Status Sensory Deficits None A [facility] 03-10-2023 Functional Status Assistive Device None A [facility] 03-10-2023 Functional Status Two assist [facility] 03-10-2023 Functional Status Standard Safety ID band on [facility] 01-26-2023 Functional Status Minimum assistance [facility] 01-26-2023 Functional Status Minimum assistance [facility] 12-27-2022 Functional Status Activity Sparkle tance Independent [facility] 12-27-2022 Functional Status Standard Safet y ID band on, Allergy Band on, Call device within reach, Bed in low position, Wheels locked, Upper/Half-Length side-rails up, Phone within reach, personal items within reach, Bedside Cart Locked [facility] Mental Status Date Assessment Result Facility 12-13-2023 Mental Status Oriented x 4 [facility] 12-12-2023 Mental Status [facility] 12-12-2023 Mental Status [facility] 12-12-2023 Mental Status Orientation Oriented x 4 [facility] 12-03-2023 Mental Status Orientation Oriented x 4 [facility] 12-03-2023 Mental Status [facility] 06-19-2023 Mental Status Orientation Oriented x 4 [facility] 03-29-2023 Mental Status Oriented x 4 [facility] 03-28-2023 Mental Status [facility] 03-28-2023 Mental Status [facility] 03-28-2023 Mental Status [facility] 03-14-2023 Mental Status Oriented x 4 [facility] 03-14-2023 Mental Status [facility] 03-10-2023 Mental Status Orientation Oriented x 4 [facility] 03-10-2023 Mental Status [facility] 01-26-2023 Mental Status Orientation Oriented x 4 [facility] 01-26-2023 Mental Status [facility] 12-27-2022 Mental Status Orientation Oriented x 4 [facility] 12-27-2022 Mental Status [facility] Clinical Notes 09-27-2021 to 12-13-2023 Note Date & Type Note Facility 12-13-2023 Hospital Discharg e instructions Patient Education 12/13/2023 14:08:37 Near-Syncope, [id number] Near-Syncope Near-syncope is when you suddenly get weak or dizzy, or you feel like you might pass out (faint). This may also be called presyncope. This is due to a lack of blood flow to the brain. During an episode of near-syncope, you may: Feel dizzy, weak, or light-headed. Feel sick to your stomach (nauseous). See all white or all black. See spots. Have cold, clammy skin. This condition is caused by a sudden decrease in blood flow to the brain. This decrease can result from various causes, but most of those causes are not dangerous. However, near-syncope may be a sign of a serious medical problem, so it is important to seek medical care. Follow these instructions at home: Medicines Take byvs-agj-ghdzvmn and prescription medicines only as told by your doctor. If you are taking blood pressure or heart medicine, get up slowly and spend many minutes getting ready to sit and then stand. This can help with dizziness. General instructions Be aware of any changes in your symptoms. Talk with your doctor about your symptoms. You may need to have testing to find the cause of your near-syncope. If you start to feel like you might pass out, lie down right away. Raise (elevate) your feet above the level of your heart. Breathe deeply and steadily. Wait until all of the symptoms are gone. Have someone stay with you until you feel stable. Do not drive, use machinery, or play sports until your doctor says it is okay. Drink enough fluid to keep your pee (urine) pale yellow. Keep all follow-up visits as told by your doctor. This is important. Get help right away if you: Have a seizure. Have pain in your: ?Chest. ?Belly (abdomen). ?Back. Faint once or more than once. Have a very bad headache. Are bleeding from your mouth or butt. Have black or tarry poop (stool). Have a very fast or uneven heartbeat (palpitations). Are mixed up (confused). Have trouble walking. Are very weak. Have trouble seeing. These symptoms may be an emergency. Do not wait to see if the symptoms will go away. Get medical help right away. Call your local emergency services (911 in the [place] Do not drive yourself to the hospital. Summary Near-syncope is when you suddenly get weak or dizzy, or you feel like you might pass out (faint). This condition is caused by a lack of blood flow to the brain. Near-syncope may be a sign of a serious medical problem, so it is important to seek medical care. This information is not intended to replace advice given to you by your health care provider. Make sure you discuss any questions you have with your health care provider. Document Released: 09/18/2008 Document Revised: 07/25/2019 Document Reviewed: 02/19/2019 [email or web address] Patient Education 2020 [employer]. Follow Up Care 12/12/2023 20:12:24 With:MEY MADDOX APRN-CALL OUT CLERK Address: [address] [place] [address] [place] [address] [phone] When:3-5 days Comments:Please call to schedule your post-hospital follow-up appointment. [facility] 12-13-2023 Note Discharge Instructions Thank you for allowing [facility] to assist you with your healthcare needs. The following is important discharge information regarding your hospital visit. Your Care Team [facility] Your Diagnosis Cognitive impairment Headache Left shoulder pain Near syncope Symptoms of urinary tract infection What to do next Instructions From Your Doctor All of your regular medications were sent to [facility] pharmacy in [place]. An antibiotic was sent to [facility] for treatment of possible UTI. It is important that you take your medications as prescribed. Not controlling your blood pressure does put you at risk for stroke. Follow Up Appointments Follow Up with MEY MADDOX When:Within 3-5 days Where:[address] [place] [address] [phone] Additional Information: Please call to schedule your post-hospital follow-up appointment. The Following Activity and Diet Have Been Ordered for You Discharge Activity - Ordered -- Resume your pre-hospitalization activity, 12/13/23 13:33:00 EDT Discharge Diet - Ordered -- No changes were made to your diet during your hospital stay. Please resume your pre hospitalization diet on discharge., 12/13/23 13:33:00 EDT Allergies Crestor (Moderate) Myalgia Demerol HCl SEVERE N/V Epinephrine SEVERE SHAKING Iodine HIVES Medications Please ask your primary doctor or pharmacist before taking any other medication not listed, including over the counter drugs, herbal medications, vitamins and or supplements as they may interact with your home medications. What How Much When Why Instructions Last Dose New cefuroxime (cefuroxime 500 mg oral tablet) 1 tab(s) by mouth Two (2) times a day Duration: 3 Days Pickup at [facility]/pharmacy #[id number] Changed insulin glargine (Basaglar KwikPen 100 units/ mL subcutaneous solution) 24 unit(s) Subcutaneous Once a day Duration: 30 Days Pickup at [place] [address] Unchanged acetaminophen (Tylenol Extra Strength 500 mg oral tablet) 2 tab(s) by mouth Two (2) times a day Left shoulder pain Duration: 30 Days Pickup at [place] [address] Unchanged aspirin (aspirin 81 mg oral tablet, chewable) 1 tab(s) by mouth Every day Duration: 90 Days Pickup at [place] [address] Unchanged bisoprolol (bisoprolol 5 mg oral tablet) 1 tab(s) by mouth Once a day Pickup at [place] [address] Unchanged DME (Alcohol Swabs) See instructions Diabetes mellitus with microalbuminuria Diabetic peripheral vascular disease Supply 1 box, 90 day supply, test blood sugars once daily Unchanged DME (Blood Glucose Test Machine) See instructions Diabetes mellitus with microalbuminuria Diabetic peripheral vascular disease Use as directed Brand type per insurance or patient preference Unchanged DME (Blood Glucose Test Strips) See instructions Type II diabetes mellitus 1 bottle of 100, 90 day supply to test blood sugars once daily. Inulix Freestyle test strips. Unchanged DME (Blood Glucose Test Strips) See instructions Diabetes mellitus with microalbuminuria Diabetic peripheral vascular disease Please provide insurance preferred test strips to match glucose monitor. Test blood sugars once daily. Unchanged DME (Blood Pressure Cuff) See instructions HTN (hypertension) Type II diabetes mellitus Check and Log Blood Pressure Daily Unchanged DME (DME MISCellaneous) See instructions Diabetes Pen needles, enough for 4 injections daily x 30 days. Any 4/ 5 mm pen needle in stock and covered by insurance is appropriate Unchanged DME (Lancets) See instructions Diabetes mellitus with microalbuminuria Diabetic peripheral vascular disease test blood sugars once daily, 100 Each, 90 day supply Unchanged DME (Pen needles 4 mm) See instructions qs for 1 month supply Unchanged DME (Wheel Chair) See instructions DDD (degenerative disc disease), lumbar CVA (cerebrovascular accident) Please provide 1 wheel chair, with foot rests and leg rests. Unchanged ibuprofen (ibuprofen 200 mg oral tablet) 2 tab(s) by mouth Every 6 hours as needed for pain or fever Unchanged lisinopril (lisinopril 40 mg oral tablet) 1 tab(s) by mouth Once a day Duration: 90 Days take 1 tablet by mouth once daily Pickup at [facility] [address] Unchanged [facility] Medication (DROPLET NDL [id number] PEN) Pharmacy Information [facility] [address]: [address] [place], [place] [id number] [phone] [facility]/pharmacy #[id number]: [address], [place] [phone] Please take this list to your next doctor s visit. Bring all medications you take, including over the counter medications, herbals and other supplements with you to your doctor s visit. Patients and families are reminded to discard old lists and to update any records with all medication providers or retail pharmacies. Education Materials Near-Syncope Near-syncope is when you suddenly get weak or dizzy, or you feel like you might pass out (faint). This may also be called presyncope. This is due to a lack of blood flow to the brain. During an episode of near-syncope, you may: Feel dizzy, weak, or light-headed. Feel sick to your stomach (nauseous). See all white or all black. See spots. Have cold, clammy skin. This condition is caused by a sudden decrease in blood flow to the brain. This decrease can result from various causes, but most of those causes are not dangerous. However, near-syncope may be a sign of a serious medical problem, so it is important to seek medical care. Follow these instructions at home: Medicines Take cicd-hph-ropdkil and prescription medicines only as told by your doctor. If you are taking blood pressure or heart medicine, get up slowly and spend many minutes getting ready to sit and then stand. This can help with dizziness. General instructions Be aware of any changes in your symptoms. Talk with your doctor about your symptoms. You may need to have testing to find the cause of your near-syncope. If you start to feel like you might pass out, lie down right away. Raise (elevate) your feet above the level of your heart. Breathe deeply and steadily. Wait until all of the symptoms are gone. Have someone stay with you until you feel stable. Do not drive, use machinery, or play sports until your doctor says it is okay. Drink enough fluid to keep your pee (urine) pale yellow. Keep all follow-up visits as told by your doctor. This is important. Get help right away if you: Have a seizure. Have pain in your: ? Chest. ? Belly (abdomen). ? Back. Faint once or more than once. Have a very bad headache. Are bleeding from your mouth or butt. Have black or tarry poop (stool). Have a very fast or uneven heartbeat (palpitations). Are mixed up (confused). Have trouble walking. Are very weak. Have trouble seeing. These symptoms may be an emergency. Do not wait to see if the symptoms will go away. Get medical help right away. Call your local emergency services (911 in the [place] Do not drive yourself to the hospital. Summary Near-syncope is when you suddenly get weak or dizzy, or you feel like you might pass out (faint). This condition is caused by a lack of blood flow to the brain. Near-syncope may be a sign of a serious medical problem, so it is important to seek medical care. This information is not intended to replace advice given to you by your health care provider. Make sure you discuss any questions you have with your health care provider. Document Released: 09/18/2008 Document Revised: 07/25/2019 Document Reviewed: 02/19/2019 Elsevier Patient Education 2020 [employer]. Additional Information VACCINATE! IT SAVES LIVES! Members of the community who have not yet received the COVID-19 vaccine and would like to receive it can visit one of [facility] vaccine clinics. There are many vaccine clinic locations within the [facility]. For locations and available times, please visit https://gettheshot.coronavirus.o hio.gov/. It is important to note that some COVID mobile vaccine clinics are held outdoors and may be canceled in rainy or stormy conditions. To learn more about pediatric vaccinations (ages 5-11), we invite you to visit the [employer] webpage. https://www.[employer].org/p ages/9185-Bpnab-Bjudcbgozgb-Freq aoqfmn-Lvtsh-Khphyintb.html To learn more about the COVID-19 vaccine, we invite you to visit the CDC website for a list of frequently asked questions.https://www.cdc.gov/co ronavirus/2019-ncov/vaccines/faq .html [employer] Patient Portal Access Instructions: Stay connected with your healthcare team and access your personal medical information anytime with the [employer] Patient Portal. Please follow the directions below to create your [employer] account: 1.Access the email account you provided upon registration to the hospital/physician office.2.Look for an invitation email from [facility].3.Open the email and access the invitation link: Accept Invitation to [facility].4.Fill in the required christian to create your account. To access your account, visit [employer]. Click the blue button labeled Access Patient Portal and then log in with the username and password that you created in the steps above. You will be able to view your test results, lab results, a summary of your visits, upcoming appointments and more. There is also a convenient messaging option where you can send secure messages to your provider. In addition, you will have the ability to download any documents or summaries to your computer and/or send the information securely to a physician. Remember that your healthcare information is confidential, so carefully consider who you will allow to register on the [facility] for access to your information. You can also access the [facility] on the [facility] ricco. Simply click on Patient Portal and then log into your account. If you would like to receive a full copy of your medical records, please contact the [facility] Medical Records Department by calling [phone], Sunday through Sunday between 8 a.m. and 4:30 p.m. HOW TO SAFELY DISPOSE OF PRESCRIPTION MEDICATIONS Please use one of the following methods to safely dispose of your unused medications. 1.Use a drug disposal kit: the drug disposal pouch allows you to safely discard your old and unused drugs. Ask your nurse to give you one when you are discharged.2.Visit a local take-back location: Many local pharmacies and police departments have programs that collect old and unwanted prescription drugs. Call your local pharmacy or go to http://[employer] [place]/9I9Yq5e to find one close to you.3.Make use of household items: Use cat litter or old coffee grounds to dispose medications if other options are not available. Mix your drugs with these household products, seal them in an airtight container and throw it into the garbage. Call [facility]: [phone] to be sure your drugs can be disposed of in this way. Some medicines may require a different approach.4.Never flush your medications down the toilet. IF YOU HAVE BEEN PRESCRIBED AN OPIOID FOR PAIN If you have been prescribed an opioid (such as hydrocodone, oxycodone or morphine), it is critical to understand the possible side effects and risks of opioid pain medications. Even when taken as directed, opioids can have several side effects including: Tolerance, meaning you might need to take more of a medication for the same pain relief. Nausea, vomiting and/or constipation. Sleepiness, dizziness, dry mouth, confusion, depression or itching. Physical dependence, meaning you have withdrawal symptoms when a medication is stopped, can develop within a few days. KNOW YOUR RESPONSIBILITIES It is important to know exactly how much and how often to take the opioid pain medications you are prescribed. Never take opioids in higher amounts or more often than prescribed. Do not combine opioids with alcohol or other drugs that cause drowsiness, such as benzodiazepines, also known as benzos, including diazepam and alprazolam, muscle relaxants or sleep aids. Never sell or share prescription opioids. This is illegal. Store opioids in a secure place and out of reach of others (including children, family, friends and visitors). The last page of this document has been signed and retained as a CHART COPY. Signatures Patient Education Materials Near-Syncope, Ulzq-ef-Mdbb Medication Leaflets My discharge plan and instructions have been reviewed and explained to me and I,ALEXUS MOYER understand my current condition and have read and understand these discharge instructions. I have received a written copy of the plan/instructions. If I have questions, I am aware that I should contact my doctor. 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 Headache 2. Cognitive impairment 3. Near syncope 4. Symptoms of urinary tract infection Headache patient's has not been taking her antihypertensives appropriately. Her medications are delivered to her however they are not packaged individually per day. She recognizes that she does often forget her medications. She is agreeable to using a pharmacy delivery service. Cognitive impairment Patient's last MoCA score was 21 out of 30. This was discussed with she and her daughter in law to be mindful that she may need more assistance at home. Patient admits that she is very stubborn and set in her ways. Near syncope this happened after getting out of the car after discharge from her initial emergency department visit. Potentially related to Ativan. EKG showed normal sinus rhythm. CT head was negative. No further episodes since being readmitted. Urinary symptoms patient reports dysuria. She had leukocytosis upon arrival. This has resolved this morning. She received a dose of ceftriaxone. Will continue this. DVT prophylaxis: Heparin Code Status: DNR CCA/DNI Plan of care discussed with patient. All questions answered. Patient verbalizes understanding is agreeable to plan of care. This dictation was performed using voice recognition software and may include grammatical and/or spelling errors. Future Appointments Appointment Date:12/14/2023 04:30:00 PM Scheduled Provider:EDDIE ESCOBEDO PA-C Location:[facility] Appointment Type:PC OV ED Follow Up [facility] 08-29-2024 Note Date of Service 12/12/2023 Chief Complaint syncope History of Present Illness 88-year-old female with past medical history significant for type 2 diabetes mellitus on insulin athome, peripheral vascular disease, CKD stage 3B, brachial neuritis hypertension, CVA. Patient presented to [facility] emergency department on 12/11 reports of headache. There is concern that this is related to her not taking her antihypertensives. She has had 3 significant familydeaths with her passing a little over 1 year ago, her sister and her son just this month. She was treated for hypertension and subsequently discharged home. She returned to the emergency department with syncopal episode. She had a low- grade temperature and mild leukocytosis. Urinalysis positive for nitrates. CT of the head was unremarkable. She was given a On exam today, pt denies any fever or chills. No dizziness. Occasional headache/neck ache. Denies chest pain, palpitations. No cough, dyspnea, sputum production. Denies N/V/D/C. No melena/hematochezia. Admits dysuria. No new paresthesias. Review of Systems See HPI for specific ROS. All other systems reviewed and negative. Physical Exam Vitals and Measurements T: 36.7 C (Oral) TMIN: 36.7 C (Oral) TMAX: 36.8 C (Oral) HR: 59 (Monitored) RR: 16 BP: 145/56 SpO2:97% HT: 162.6 cm WT: 66.7 kg BMI: 25.23 Weight Dosing Weight: 66.7 kg (12/12/23) Dosing Weight: 66.7 kg (12/12/23) GEN: Appears chronically ill EYES: No conjunctival erythema, drainage. EOMI EARS: Hearing grossly intact. NOSE: No nasal discharge. THROAT: Oral cavity and pharynx pink and moist. CHEST: Normal S1 and S2. Rhythm is regular. Clear to auscultation, without rales, rhonchi, wheezing. ABD: Positive bowel sounds x 4 quads. Soft, nondistended, nontender. EXT: No significant deformity or joint abnormality. No edema. Peripheral pulses intact. NEURO: Sensation grossly intact SKIN: Skin color normal PSYCH: The mental examination revealed the patient was alert and oriented x 4, forgetful Lab Results 12/12 05:43 WBC: 9.1 Hgb: 11.0 L Hct: 32.3 L Platelet: 255 Neutrophil %: 72.5 Glucose Level: 142 H Sodium Level: 135 L Potassium Level: 3.6 BUN: 13 Creatinine Lvl (s): 0.76 12/11 20:29 WBC: 15.4 H Hgb: 12.3 Hct: 36.9 L Platelet: 260 Neutrophil %: 89.9 H Glucose Level: 179 H Sodium Level: 135 L Potassium Level: 3.9 BUN: 14 Creatinine Lvl (s): 0.77 Imaging Results and Diagnostics CT Head or Brain w/o Contrast Result Date: December 12, 2023 Verified By: JOSHUA CONCEPCION MD CLINICAL STATEMENT: IMPRESSION: No acute intracranial abnormality. XR Chest 1 View Result Date: December 12, 2023 Verified By: JOSHUA CONCEPCION MD CLINICAL STATEMENT: IMPRESSION: No acute abnormality is identified. Assessment/Plan 1. Headache 2. Cognitive impairment 3. Near syncope 4. Symptoms of urinary tract infection Headache patient's has not been taking her antihypertensives appropriately. Her medications are delivered to her however they are not packaged individually per day. She recognizes that she does oftenforget her medications. She is agreeable to using a pharmacy delivery service. Cognitive impairment Patient's last MoCA score was 21 out of 30. This was discussed with she and her daughter in law to be mindful that she may need more assistance at home. Patient admits that she is very stubborn and set in her ways. Near syncope this happened after getting out of the car after discharge from her initial emergency department visit. Potentially related to Ativan. EKG showed normal sinus rhythm. CT head was negative. No further episodes since being readmitted. Urinary symptoms patient reports dysuria. She had leukocytosis upon arrival. This has resolved thismorning. She received a dose of ceftriaxone. Will continue this. DVT prophylaxis: Heparin Code Status: DNR CCA/DNI Plan of care discussed with patient. All questions answered. Patient verbalizes understanding is agreeable to plan of care. This dictation was performed using voice recognition software and may include grammatical and/or spelling errors. Problem List/Past Medical History Ongoing Aortic atherosclerosis Asthenia Atherosclerosis of coronary artery without angina pectoris BMI 26.0-26.9,adult Brachial neuritis Carotid stenosis Cervical lymphadenopathy Change in voice CKD stage 3 secondary to diabetes Constipation COVID-19 CVA (cerebrovascular accident) DDD (degenerative disc disease), lumbar Depression, major, in remission Diabetes mellitus with microalbuminuria Diabetic nephropathy Diabetic peripheral vascular disease Diverticulosis Dysarthria Edema Encounter for examination following treatment at hospital Encounter for removal of sutures Eustachian tube dysfunction Facial droop Fall Foot drop, right Frequent falls GERD (gastroesophageal reflux disease) Globus sensation Hx of completed stroke Hypercholesterolemia Hypertension associated with type 2 diabetes mellitus 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 heart disease without CHF 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 nephropathy Left knee pain FCI current use of insulin Low back pain Lumbar spinal stenosis LVH (left ventricular hypertrophy) Microalbuminuria Need for hepatitis C screening test Neuropathy, diabetic Nocturnal leg cramps Non-tobacco user Osteoarthritis Overweight Peripheral neuropathy Peripheral vascular disease Right ear pain Right leg weakness Risk for falls Rosacea Sacral fracture Screening for osteoporosis Somatic dysfunction of cervical region Somatic dysfunction of lumbar region Somatic dysfunction of pelvic region Somatic dysfunction of rib region Somatic dysfunction of sacral region Somatic dysfunction of thoracic region Stage 3a chronic kidney disease (CKD) Syncope Thyroid nodule Type 2 diabetes mellitus with hyperlipidemia Uncontrolled type 2 diabetes mellitus with hyperglycemia, with long-term current use of insulin Vitiligo Weakness Procedure/Surgical History Laminectomy and discectomy: 11/22/12 Cholecystectomy: 11/23/03 Appendectomy: 07/21/73 Laparotomy: 07/21/73 Hysterectomy Mastectomy of left breast Medications Home Medications (17) Active Alcohol Swabs See Instructions aspirin 81 mg oral tablet, chewable 81 mg = 1 tab(s), Oral, Daily Basaglar KwikPen 100 units/mL subcutaneous solution 24 unit(s), Subcutaneous, qDay bisoprolol 5 mg oral tablet 5 mg = 1 tab(s), Oral, qDay Blood Glucose Test Machine See Instructions Blood Glucose Test Strips See Instructions Blood Glucose Test Strips See Instructions Blood Pressure Cuff See Instructions cefuroxime 500 mg oral tablet 500 mg = 1 tab(s), Oral, BID DME MISCellaneous See Instructions DROPLET NDL [id number] PEN ibuprofen 200 mg oral tablet 400 mg = 2 tab(s), PRN, Oral, q6hr Lancets See Instructions lisinopril 40 mg oral tablet 40 mg = 1 tab(s), Oral, qDay Pen needles 4 mm See Instructions Tylenol Extra Strength 500 mg oral tablet 1,000 mg = 2 tab(s), Oral, BID Wheel Chair See Instructions Allergies Crestor (Moderate) Myalgia Demerol HCl SEVERE N/V Epinephrine SEVERE SHAKING Iodine HIVES Social History Smoking Status - 03/20/2017 Never smoker Alcohol - Denies Alcohol Use, 03/20/2017 Use: Never., 12/10/2018 Home/Environment Living situation: Home/Independent. Primary [employer] Feeder: self, 2 sons are in the area and check on them. 2 daughters are out of state. Lives In: Multilevel home, 1st floor bedroom, 2nd floor bedroom. Current Home Treatments Blood Glucose monitoring. Spouse Name: 2022., 12/12/2023 OTher risks in environment: no current smoke exposure., 12/10/2018 Nutrition/Health Type of diet: Regular. Caffeine intake amount: 3 coffee daily. Appetite Fair. Eating Difficulties None., 11/15/2023 Substance Abuse - Denies Substance Abuse, 03/20/2017 Use: Never., 12/10/2018 Tobacco Tobacco Use: Never (less than 100 in lifetime)., 12/10/2018 Family History Cancer: Mother and Father. Diabetes mellitus: Mother and Sister. Heart disease: Mother and Father. Health Status Family Member(s) Immunizations SARS-CoV-2 (COVID-19) Ad26 vaccine: 0.5 unknown unit (04/05/21) SARS-CoV-2 (COVID-19) Ad26 vaccine: 0.5 unknown unit (10/07/20) tetanus/diphth/pertuss (Tdap) adult/adol: 0.5 mL (12/27/22) Code Status Code Status - Ordered -- 12/13/23 10:10:00 EDT, DNRCC-Arrest Do Not Intubate, Constant Order Digitally Signed by MOHIT JOHNS on 12/13/2023 11:57 AM [facility]08-29-2024 Pastoral care Progress note Pastoral Care Note Entered On: 12/13/2023 9:32 EDT Performed On: 12/13/2023 9:27 EDT by Doc Ash Pastoral Care Type of Pastoral Visit : Initial visit Spiritual Care Visit Initiated by : Syruper Spiritual Care Reason for Visit : General Spiritual Assessment : Positive Image of God Spiritual Care Emotional Assessment : Sad, Pessimistic, Apathetic, Tearful Spiritual Care Intervention : Active listening, Compassion/Empathy, Supportive presence, Explore Emotional Needs, Prayer with Patient/Family, Grief Work Spiritual Outcomes : Expresses Gratitude, Embraces Present Moment Spiritual Plan of Care : Visit as Requested Pastoral Care Comments : patient gives update since her last admission; pt reveals that her son this month after illness and a MVA; pt refers to being very old now; pt states that she doesn't really want to be in the hospital but admits ongoing headaches; pt does have a grandmas group thatgives her social outlet but has limited activities; pt does have a few family members in the area but they work and I don't want to bother them with me; pt is encouraged to get the help that she needs and to allow herself grief processing and family assistance; pt does welcome a prayer; otherwisedenies further needs Pastoral Care Visit Length : 20 minute(s) Doc Ash - 12/13/2023 9:27 EDT Digitally Signed by Doc Ash on 12/13/2023 09:27 AM [facility]08-28-2024 Note ORIGINAL EXAMINATION: ONE XRAY VIEW OF THE CHEST 12/12/2023 9:06 pm COMPARISON: 03/10/2023 HISTORY: ORDERING SYSTEM PROVIDED HISTORY: Reason for Exam: syncopal episode FINDINGS: The cardiomediastinal silhouette appears normal in size with aortic calcifications.. There is no focal consolidation. There is no pulmonary edema. There is no evidence of pleural effusion. There is no evidence of pneumothorax. No fracture is identified. IMPRESSION: No acute abnormality is identified. Interpreted by: Joshua Concepcion Preliminary Report By: Joshua Concepcion Electronically signed By Joshua Concepcion Dictated Date: 12/12/2023 9:31:40 PM Prelim Date: 12/12/2023 9:31:56 PM Sign Date: 12/12/2023 9:31:56 PM Ordering Provider: ALVAREZ [facility]08-28-2024 Note ORIGINAL EXAMINATION: CT OF THE HEAD WITHOUT CONTRAST 12/12/2023 9:06 pm TECHNIQUE: CT of the head was performed without the administration of intravenous contrast. Automated exposure control, iterative reconstruction, and/or weight based adjustment of the mA/kV was utilized to reduce the radiation dose to as low as reasonably achievable. COMPARISON: 12/03/2023 HISTORY: ORDERING SYSTEM PROVIDED HISTORY: Reason for Exam: syncopal episode FINDINGS: BRAIN/VENTRICLES: There is no acute intracranial hemorrhage, mass effect or midline shift. No abnormal extra-axial fluid collection. The dasilva-white differentiation is maintained without evidence of an acute infarct. There is no evidence of hydrocephalus. ORBITS: The visualized portion of the orbits demonstrate no acute abnormality. SINUSES: The visualized paranasal sinuses and mastoid air cells demonstrate no acute abnormality. SOFT TISSUES/SKULL: No acute abnormality of the visualized skull or soft tissues. IMPRESSION: No acute intracranial abnormality. Interpreted by: Joshua Concepcion Preliminary Report By: Joshua Concepcion Electronically signed By Joshua Concepcion Dictated Date: 12/12/2023 9:32:04 PM Prelim Date: 12/12/2023 9:32:34 PM Sign Date: 12/12/2023 9:32:34 PM Ordering Provider: ALVAREZ [facility]08-28-2024 Note Sinus rhythm Left axis deviation Electronic Signature: ALVAREZ WONG MD 12/12/2023 20:52:[address] [place] [address] 08-28-2024 Hospital Discharge instructions Patient Education 12/12/2023 18:17:59 Controlling High Blood Pressure Controlling High Blood Pressure High blood pressure (hypertension) is often called the silent killer. This is because many people who have it, don t know it. High blood pressure can raise your risk of heart attack, stroke, heart disease, and heart failure. Controlling your blood pressure can decrease your risk of these problems. Know your blood pressure and remember to check it regularly. Doing so can save your life. Blood pressure measurements are given as 2 numbers. Systolic blood pressure is the upper number. This is the pressure when the heart contracts. Diastolic blood pressure is the lower number. This is the pressure when the heart relaxes between beats. Blood pressure is categorized as normal, elevated, or stage 1 or stage 2 high blood pressure: Normal blood pressure is systolic of less than 120 and diastolic of less than 80 (120/80) Elevated blood pressure is systolic of 120 to 129 and diastolic less than 80 Stage 1 high blood pressure is systolic is 130 to 139 or diastolic between 80 to 89 Stage 2 high blood pressure is when systolic is 140 or higher or the diastolic is 90 or higher Here are some things you can do to help control your blood pressure. Choose heart-healthy foods Select low-salt, low-fat foods. Limit sodium intake to 2,400 mg per day or the amount suggested by your healthcare provider. Limit canned, dried, cured, packaged, and fast foods. These can contain a lot of salt. Eat 8 to 10 servings of fruits and vegetables every day. Choose lean meats, fish, or chicken. Eat whole-grain pasta, brown rice, and beans. Eat 2 to 3 servings of low-fat or fat-free dairy products. Ask your doctor about the DASH eating plan. This plan helps reduce blood pressure. When you go to a restaurant, ask that your meal be prepared with no added salt. Maintain a healthy weight Ask your healthcare provider how many calories to eat a day. Then stick to that number. Ask your healthcare provider what weight range is healthiest for you. If you are overweight, a weight loss of only 3% to 5% of your body weight can help lower blood pressure. Generally, a good weightloss goal is to lose 10% of your body weight in a year. Limit snacks and sweets. Get regular exercise. Get up and get active Choose activities you enjoy. Find ones you can do with friends or family. This includes bicycling, dancing, walking, and jogging. Park farther away from building entrances. Use stairs instead of the elevator. When you can, walk or bike instead of driving. [place]rich leaves, garden, or do household repairs. Be active at a moderate to vigorous level of physical activity for at least 40 minutes for a minimum of 3 to 4 days a week. Manage stress Make time to relax and enjoy life. Find time to laugh. Communicate your concerns with your loved ones and your healthcare provider. Visit with family and friends, and keep up with hobbies. Limit alcohol and quit smoking Men should have no more than 2 drinks per day. Women should have no more than 1 drink per day. Talk with your healthcare provider about quitting smoking. Smoking significantly increases your risk for heart disease and stroke. Ask your healthcare provider about community smoking cessation programs and other options. Medicines If lifestyle changes aren t enough, your healthcare provider may prescribe high blood pressure medicine. Take all medicines as prescribed. If you have any questions about your medicines, ask your healthcare provider before stopping or changing them. [id number] [employer]. [address] [place] [address]. All rights reserved. This information is not intended as a substitute for professional medical care. Always follow yourhealthcare professional's instructions. Follow Up Care 12/12/2023 16:17:34 With:MEY MADDOX Address: [address] [place] [phone] When:2-4 days [facility] 08-28-2024 Note Discharge Instructions Thank you for allowing [facility] to assist you with your healthcare needs. The following is importantdischarge information regarding your hospital visit. Diagnosis from Today's Visit Headache Hypertension What to Do Next Instructions from Your Care Team Please follow-up with your PCP regarding your visit today. No qualifying data available. Post Acute Orders No qualifying data available. You Need to Schedule the Following Appointments Follow Up with MEY MADDOX When:Within 2-4 days Where:[address] [place] [phone] Allergies Crestor (Moderate) Myalgia Demerol HCl SEVERE N/V Epinephrine SEVERE SHAKING Iodine HIVES Medications Please ask your primary doctor or pharmacist before taking any other medication not listed, including over the counter drugs, herbal medications, vitamins and or supplements as they may interact withyour home medications. What How Much When Why Instructions Last Dose Unchanged acetaminophen (Tylenol Extra Strength 500 mg oral tablet) 2 tab(s) by mouth Two (2) times a day Left shoulder pain Duration: 30 Days Unchanged aspirin (aspirin 81 mg oral tablet, chewable) 1 tab(s) by mouth Every day Duration: 90 Days Unchanged bisoprolol (bisoprolol 5 mg oral tablet) 1 tab(s) by mouth Once a day Unchanged DME (Alcohol Swabs) See instructions Diabetes mellitus with microalbuminuria Diabetic peripheral vascular disease Supply 1 box, 90 day supply, test blood sugars once daily Unchanged DME (Blood Glucose Test Machine) See instructions Diabetes mellitus with microalbuminuria Diabetic peripheral vascular disease Use as directed Brand type per insurance or patient preference Unchanged DME (Blood Glucose Test Strips) See instructions Type II diabetes mellitus 1 bottle of 100, 90 day supply to test blood sugars once daily. [employer] Fre[employer] test strips. Unchanged DME (Blood Glucose Test Strips) See instructions Diabetes mellitus with microalbuminuria Diabetic peripheral vascular disease Please provide insurance preferred test strips to match glucose monitor. Test blood sugars once daily. Unchanged DME (Blood Pressure Cuff) See instructions HTN (hypertension) Type II diabetes mellitus Check and Log Blood Pressure Daily Unchanged DME (DME MISCellaneous) See instructions Diabetes Pen needles, enough for 4 injections daily x 30 days. Any 4/ 5 mm pen needle in stock and covered by insurance is appropriate Unchanged DME (Lancets) See instructions Diabetes mellitus with microalbuminuria Diabetic peripheral vascular disease test blood sugars once daily, 100 Each, 90 day supply Unchanged DME (Pen needles 4 mm) See instructions qs for 1 month supply Unchanged DME (Wheel Chair) See instructions DDD (degenerative disc disease), lumbar CVA (cerebrovascular accident) Please provide 1 wheel chair, with foot rests and leg rests. Unchanged ibuprofen (ibuprofen 200 mg oral tablet) 2 tab(s) by mouth Every 6 hours as needed for pain or fever Unchanged insulin glargine (Basaglar KwikPen 100 units/ mL subcutaneous solution) 24 unit(s) Unchanged lisinopril (lisinopril 40 mg oral tablet) 1 tab(s) by mouth Once a day Duration: 90 Days take 1 tablet by mouth once daily Unchanged Misc Medication (DROPLET NDL [id number] PEN) Please take this list to your next doctor s visit. Bring all medications you take, including over the counter medications, herbals and other supplements with you to your doctor s visit. Patients and families are reminded to discard old lists and to update any records with all medication providers or retail pharmacies. Education Materials Controlling High Blood Pressure High blood pressure (hypertension) is often called the silent killer. This is because many people who have it, don t know it. High blood pressure can raise your risk of heart attack, stroke, heart disease, and heart failure. Controlling your blood pressure can decrease your risk of these problems. Know your blood pressure and remember to check it regularly. Doing so can save your life. Blood pressure measurements are given as 2 numbers. Systolic blood pressure is the upper number. This is the pressure when the heart contracts. Diastolic blood pressure is the lower number. This is the pressure when the heart relaxes between beats. Blood pressure is categorized as normal, elevated, or stage 1 or stage 2 high blood pressure: Normal blood pressure is systolic of less than 120 and diastolic of less than 80 (120/80) Elevated blood pressure is systolic of 120 to 129 and diastolic less than 80 Stage 1 high blood pressure is systolic is 130 to 139 or diastolic between 80 to 89 Stage 2 high blood pressure is when systolic is 140 or higher or the diastolic is 90 or higher Here are some things you can do to help control your blood pressure. Choose heart-healthy foods Select low-salt, low-fat foods. Limit sodium intake to 2,400 mg per day or the amount suggested by your healthcare provider. Limit canned, dried, cured, packaged, and fast foods. These can contain a lot of salt. Eat 8 to 10 servings of fruits and vegetables every day. Choose lean meats, fish, or chicken. Eat whole-grain pasta, brown rice, and beans. Eat 2 to 3 servings of low-fat or fat-free dairy products. Ask your doctor about the DASH eating plan. This plan helps reduce blood pressure. When you go to a restaurant, ask that your meal be prepared with no added salt. Maintain a healthy weight Ask your healthcare provider how many calories to eat a day. Then stick to that number. Ask your healthcare provider what weight range is healthiest for you. If you are overweight, a weight loss of only 3% to 5% of your body weight can help lower blood pressure. Generally, a good weightloss goal is to lose 10% of your body weight in a year. Limit snacks and sweets. Get regular exercise. Get up and get active Choose activities you enjoy. Find ones you can do with friends or family. This includes bicycling, dancing, walking, and jogging. Park farther away from building entrances. Use stairs instead of the elevator. When you can, walk or bike instead of driving. [employer] leaves, garden, or do household repairs. Be active at a moderate to vigorous level of physical activity for at least 40 minutes for a minimum of 3 to 4 days a week. Manage stress Make time to relax and enjoy life. Find time to laugh. Communicate your concerns with your loved ones and your healthcare provider. Visit with family and friends, and keep up with hobbies. Limit alcohol and quit smoking Men should have no more than 2 drinks per day. Women should have no more than 1 drink per day. Talk with your healthcare provider about quitting smoking. Smoking significantly increases your risk for heart disease and stroke. Ask your healthcare provider about community smoking cessation programs and other options. Medicines If lifestyle changes aren t enough, your healthcare provider may prescribe high blood pressure medicine. Take all medicines as prescribed. If you have any questions about your medicines, ask your healthcare provider before stopping or changing them. [id number] [employer]. [address] [place] [address]. All rights reserved. This information is not intended as a substitute for professional medical care. Always follow yourhealthcare professional's instructions. Additional Information VACCINATE! IT SAVES LIVES! Members of the community who have not yet received the COVID-19 vaccine and would like to receive it can visit one of [facility] vaccine clinics. There are many vaccine clinic locations within the [facility] System. For locations and available times, please visit www.[email or web address].[place].gov/. It is important to note that some COVID mobile vaccine clinics are held outdoors and may be canceled in rainy or stormy conditions. To learn more about pediatric vaccinations (ages 5-11), we invite you to visit the [facility] webpage. [email or web address] learn more about the COVID-19 vaccine, we invite you to visit the CDC website for a list of frequently asked questions. https://www.cdc.gov/coronavirus/2019-ncov/vaccines/faq.html [facility] Patient Portal Access Instructions: Stay connected with your healthcare team and access your personal medical information anytime with the [facility] Patient Portal. If you would like a full copy of your medical records please contact the [facility] Medical Records Department Sunday through Sunday between 8a.m. and 4:30p.m. Please follow the directions below to access the portal: 1.Access the email account you provided upon registration to the [facility].2.Look for an invitation email from [facility].3.Open the email and access the invitation link: Accept Invitation to [facility]4.Fill in the required christian to create your account. Sign into [email or web address] with your username and password that you created in the above steps to stay up to date. You can then view a summary of results, a summary of your visits, and the ability to download your summaries to your computer or send the information securely to a physician. Remember that your healthcare information is confidential, so carefully consider who you will allow to register on the [facility] Patient Portal for access to your information. You can also access the [facility] Patient Portal on the [employer] ricco. Simply click on Health Records under [employer] and then click on the [employer]isha logo. HOW TO SAFELY DISPOSE OF PRESCRIPTION MEDICATIONS Please use one of the following methods to safely dispose of your unused medications. 1.Use a drug disposal kit: the drug disposal pouch allows you to safely discard your old and unuseddrugs. Ask your nurse to give you one when you are discharged.2.Visit a local take-back location: Many local pharmacies and police departments have programs that collect old and unwanted prescriptiondrugs. Call your local pharmacy or go to http://Crocs.[employer]-Pharma/8F4Pv9d to find one close to you.3.Make use of household items: Use cat litter or old coffee grounds to dispose medications if other options arenot available. Mix your drugs with these household products, seal them in an airtight container andthrow it into the garbage. Call [facility]: [phone] to be sure your drugs can be disposed of in this way. Some medicines may require a different approach.4.Never flush your medications down the toilet. IF YOU HAVE BEEN PRESCRIBED AN OPIOIDS FOR PAIN If you have been prescribed an opioid (such as hydrocodone, oxycodone or morphine), it is critical to understand the possible side effects and risks of opioid pain medications. Even when taken as directed, opioids can have several side effects including: Tolerance, meaning you might need to take more of a medication for the same pain relief. Nausea, vomiting and/or constipation. Sleepiness, dizziness, dry mouth, confusion, depression or itching. Physical dependence, meaning you have withdrawal symptoms when a medication is stopped ? this can develop within a few days. KNOW YOUR RESPONSIBILITIES It is important to know exactly how much and how often to take the opioid pain medications you are prescribed. Never take opioids in higher amounts or more often than prescribed. Do not combine opioids with alcohol or other drugs that cause drowsiness, such as benzodiazepines, also known as benzos,including diazepam and alprazolam, muscle relaxants or sleep aids. Never sell or share prescriptionopioids. This is illegal. Store opioids in a secure place and out of reach of others (including children, family, friends and visitors). The last page(s) of this document has been signed and retained as a CHART COPY Signatures Patient Education Materials Controlling High Blood Pressure Medication Leaflets My discharge plan and instructions have been reviewed and explained to me and IJOÃO BRIGITTE D understand my current condition and have read and understand these discharge instructions. I have received a written copy of the plan/instructions. If I have questions, I am aware that I should contact my doctor. 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 The cause of your headache isn t clear. But it doesn t seemto be a sign of any serious illness. Headache affects almost everyone at some time. It is the most common reason people miss days from work or school. You could have a tension headache or a migraine headache. Stress can cause a tension headache. This can happen if you tense the muscles of your shoulders, neck, and scalp without knowing it. If this stress lasts long enough, you may develop a tension headache. It is not clear why migraines occur, but certain things called triggers can raise the risk of having a migraine attack. Migraine triggers may include emotional stress or depression, or by hormone changes during the menstrual cycle. Other triggers include control pills and other medicines, alcohol or caffeine, foods with tyramine (such as aged cheese, wine), eyestrain, weather changes, missed meals, and lack of sleep or oversleeping. Other causes of headache include: Viral illness with high fever Head injury with concussion Sinus, ear, or throat infection Dental pain and jaw joint (TMJ) pain More serious but less common causes of headache include stroke, brain hemorrhage, brain tumor, meningitis, and encephalitis. Home care Follow these tips when taking care of yourself at home: Don t drive yourself home if you were given pain medicine for your headache. Instead, have someone else drive you home. Try to sleep when you get home. You should feel much better when you wake up. Apply heat to the back of your neck to ease a neck muscle spasm. Take care of a migraine headache by putting an ice pack on your forehead or at the base of your skull. If you have nausea or vomiting, eat a light diet until your headache eases. If you have a migraine headache, use sunglasses when in the daylight or around bright indoor lighting until your symptoms get better. Bright glaring light can make this type of headache worse. Follow-up care Follow up with your healthcare provider, or as advised. Talk with your provider if you have frequent headaches. He or she can help figure out a treatment plan. By knowing the earliest signs of headache, and starting treatment right away, you may be able to stop the pain yourself. When to seek medical advice Call your healthcare provider right away if any of these occur: Your head pain suddenly gets worse after sexual intercourse or strenuous activity Your head pain doesn t get better within 24 hours You aren t able to keep liquids down (repeated vomiting) Fever of 100.4 F (38 C) or higher, or as directed by your healthcare provider Stiff neck Extreme drowsiness, confusion, or fainting Dizziness or dizziness with spinning sensation (vertigo) Weakness in an arm or leg or one side of your face You have trouble talking or seeing [id number] [employer]. [address] [place] [address], [place] [address]. All rights reserved. This information is not intended as a substitute for professional medical care. Always follow yourhealthcare professional's instructions. 12/03/2023 23:16:55 High Blood Pressure, Established, Out of Control Uncontrolled High Blood Pressure (Established) Your blood pressure was unusually high today. This can occur if you ve missed doses of your blood pressure medicine. Or it can happen if you are taking other medicines. These include some asthma inhalers, decongestants, diet pills, and street drugs like cocaine and amphetamine. Other causes include: Weight gain More salt in your diet Smoking Caffeine Your blood pressure can also rise if you are emotionally upset or in intense pain. It may go back to normal after a period of rest. Blood pressure measurements are given as 2 numbers. Systolic blood pressure is the upper number. This is the pressure when the heart contracts. Diastolic blood pressure is the lower number. This is the pressure when the heart relaxes between beats. You will see your blood pressure readings written together. For example, a person with a systolic pressure of 118 and a diastolic pressure of 78 will have 118/78 written in the medical record. To be high blood pressure, the numbers must be higher when tested over a period of time. Blood pressure is categorized as normal, elevated, or stage 1 or stage 2 high blood pressure: Normal blood pressure is systolic of less than 120 and diastolic of less than 80 (120/80) Elevated blood pressure is systolic of 120 to 129 and diastolic less than 80 Stage 1 high blood pressure is systolic is 130 to 139 or diastolic between 80 to 89 Stage 2 high blood pressure is when systolic is 140 or higher or the diastolic is 90 or higher Uncontrolled high blood pressure can cause serious health problems. It raises your risk for heart attack, stroke, and heart failure. In general, if you have high blood pressure, keeping your blood pressure below 130/80 mmHg may help prevent these problems. Your healthcare provider may prescribe medicine to help control blood pressure if lifestyle changes are not enough. Home care It s important to take steps to lower your blood pressure. If you are taking blood pressure medicine, the guidelines below may help you need less or no medicines in the future. Start a weight-loss program if you are overweight. Cut back on the amount of salt in your diet: oAvoid high-salt foods like olives, pickles, smoked meats, and salted potato chips. oDon t add salt to your food at the table. oUse only small amounts of salt when cooking. Start an exercise program. Talk with your healthcare provider about what exercise program is best for you. It doesn t have to be difficult. Even brisk walking for 20 minutes 3 times a week is a good form of exercise. Avoid medicines that stimulates the heart. This includes many hdxl-rph-cpgdfvx cold and sinus decongestant pills and sprays, as well as diet pills. Check the warnings about high blood pressure on thelabel. Before purchasing any qkzg-odt-vngkptv medicines or supplements, always ask the pharmacist about the product's potential interaction with your high blood pressure and your medicines. Stimulants such as amphetamine or cocaine could be lethal for someone with high blood pressure. Never take these. Limit how much caffeine you drink. Or switch to noncaffeinated beverages. Stop smoking. If you are a long-time smoker, this can be hard. Enroll in a stop- smoking program to make it more likely that you will succeed. Talk with your provider about ways to quit. Learn how to handle stress better. This is an important part of any program to lower blood pressure. Learn ways to relax. These include meditation, yoga, and biofeedback. If medicines were prescribed, take them exactly as directed. Missing doses may cause your blood pressure to get out of control. If you miss a dose or doses of your medicines, check with your healthcare provider or pharmacist about what to do. Consider buying an automatic blood pressure machine. Your provider may recommend a certain type. You can get one of these at most pharmacies. Measure your blood pressure twice a day, in the morning, and in the late afternoon. Keep a written record of your home blood pressure readings and take the record to your medical appointments. Here are some additional guidelines on home blood pressure monitoring from the [place] [employer]. Don't smoke or drink coffee for 30 minutes Go to the bathroom before the test. Relax for 5 minutes before taking the measurement. Sit correctly. Be sure your back is supported. Don't sit on a couch or soft chair. Uncross your feet and place them flat on the floor. Place your arm on a solid, flat surface like a table with the upper arm at heart level. Make certain the middle of the cuff is directly above the bend of the elbow.Check the monitor's instruction manual for an illustration. Take multiple readings. When you measure, take 2 or 3 readings one minute apart and record all of the results. Take your blood pressure at the same time every day, or as your healthcare provider recommends. Record the date, time, and blood pressure reading. Take the record with you to your next appointment. If your blood pressure monitor has a built-in memory, simply take the monitor with you to your next appointment. Call your provider if you have several high readings. Don't be frightened by a single high reading,but if you get several high readings, check in with your healthcare provider. Note: When blood pressure reaches a systolic (top number) of 180 or higher or a diastolic (bottom number) of 110 or higher, emergency medical treatment is required. Call your healthcare provider immediately. Follow-up care Regular visits to your own healthcare provider for blood pressure and medicine checks are an important part of your care. Make a follow-up appointment as directed. Bring the record of your home bloodpressure readings to the appointment. When to seek medical advice Call your healthcare provider right away if any of these occur: Blood pressure reaches a systolic (top number) of 180 or higher or diastolic (bottom number) of 110or higher, emergency medical treatment is required. Chest, arm, shoulder, neck, or upper back pain Shortness of breath Severe headache Throbbing or rushing sound in the ears Nosebleed Extreme drowsiness, confusion, or fainting Dizziness or dizziness with spinning sensation (vertigo) Weakness in an arm or leg or on one side of the face Trouble speaking or seeing [id number] [employer]. [address] [place] [address]. All rights reserved. This information is not intended as a substitute for professional medical care. Always follow yourhealthcare professional's instructions. Follow Up Care 12/03/2023 21:03:02 With:MEY MADDOX Address: [address] [place] [address] [phone] When:2-4 days [facility] 08-19-2024 Note Discharge Instructions Thank you for allowing [facility] to assist you with your healthcare needs. The following is importantdischarge information regarding your hospital visit. Diagnosis from Today's Visit Headache Hypertension What to Do Next Instructions from Your Care Team No qualifying data available. Post Acute Orders No qualifying data available. You Need to Schedule the Following Appointments Follow Up with MEY MADDOX When:Within 2-4 days Where:[address] [place] [phone] Allergies Crestor (Moderate) Myalgia Demerol HCl SEVERE N/V Epinephrine SEVERE SHAKING Iodine HIVES Medications Please ask your primary doctor or pharmacist before taking any other medication not listed, including over the counter drugs, herbal medications, vitamins and or supplements as they may interact withur home medications. What How Much When Why Instructions Last Dose Unchanged acetaminophen (Tylenol Extra Strength 500 mg oral tablet) 2 tab(s) by mouth Two (2) times a day Left shoulder pain Duration: 30 Days Unchanged aspirin (aspirin 81 mg oral tablet, chewable) 1 tab(s) by mouth Every day Duration: 90 Days Unchanged bisoprolol (bisoprolol 5 mg oral tablet) 1 tab(s) by mouth Once a day Unchanged diclofenac topical (Voltaren 1% topical gel) 2 gram(s) Topical Four (4) times a day Left shoulder pain Duration: 30 Days Unchanged DME (Alcohol Swabs) See instructions Diabetes mellitus with microalbuminuria Diabetic peripheral vascular disease Supply 1 box, 90 day supply, test blood sugars once daily Unchanged DME (Blood Glucose Test Machine) See instructions Diabetes mellitus with microalbuminuria Diabetic peripheral vascular disease Use as directed Brand type per insurance or patient preference Unchanged DME (Blood Glucose Test Strips) See instructions Type II diabetes mellitus 1 bottle of 100, 90 day supply to test blood sugars once daily. Inulix Freestyle test strips. Unchanged DME (Blood Glucose Test Strips) See instructions Diabetes mellitus with microalbuminuria Diabetic peripheral vascular disease Please provide insurance preferred test strips to match glucose monitor. Test blood sugars once daily. Unchanged DME (Blood Pressure Cuff) See instructions HTN (hypertension) Type II diabetes mellitus Check and Log Blood Pressure Daily Unchanged DME (DME MISCellaneous) See instructions Diabetes Pen needles, enough for 4 injections daily x 30 days. Any 4/ 5 mm pen needle in stock and covered by insurance is appropriate Unchanged DME (Lancets) See instructions Diabetes mellitus with microalbuminuria Diabetic peripheral vascular disease test blood sugars once daily, 100 Each, 90 day supply Unchanged DME (Pen needles 4 mm) See instructions qs for 1 month supply Unchanged DME (Wheel Chair) See instructions DDD (degenerative disc disease), lumbar CVA (cerebrovascular accident) Please provide 1 wheel chair, with foot rests and leg rests. Unchanged ibuprofen (ibuprofen 200 mg oral tablet) 2 tab(s) by mouth Every 6 hours as needed for pain or fever Unchanged insulin glargine (Basaglar KwikPen 100 units/ mL subcutaneous solution) 24 unit(s) Unchanged lisinopril (lisinopril 40 mg oral tablet) 1 tab(s) by mouth Once a day Duration: 90 Days take 1 tablet by mouth once daily Unchanged Misc Medication (DROPLET NDL [id number] PEN) Please take this list to your next doctor s visit. Bring all medications you take, including over the counter medications, herbals and other supplements with you to your doctor s visit. Patients and families are reminded to discard old lists and to update any records with all medication providers or retail pharmacies. Education Materials Headache, Unspecified A number of things can cause headaches. The cause of your headache isn t clear. But it doesn t seemto be a sign of any serious illness. Headache affects almost everyone at some time. It is the most common reason people miss days from work or school. You could have a tension headache or a migraine headache. Stress can cause a tension headache. This can happen if you tense the muscles of your shoulders, neck, and scalp without knowing it. If this stress lasts long enough, you may develop a tension headache. It is not clear why migraines occur, but certain things called triggers can raise the risk of having a migraine attack. Migraine triggers may include emotional stress or depression, or by hormone changes during the menstrual cycle. Other triggers include control pills and other medicines, alcohol or caffeine, foods with tyramine (such as aged cheese, wine), eyestrain, weather changes, missed meals, and lack of sleep or oversleeping. Other causes of headache include: Viral illness with high fever Head injury with concussion Sinus, ear, or throat infection Dental pain and jaw joint (TMJ) pain More serious but less common causes of headache include stroke, brain hemorrhage, brain tumor, meningitis, and encephalitis. Home care Follow these tips when taking care of yourself at home: Don t drive yourself home if you were given pain medicine for your headache. Instead, have someone else drive you home. Try to sleep when you get home. You should feel much better when you wake up. Apply heat to the back of your neck to ease a neck muscle spasm. Take care of a migraine headache by putting an ice pack on your forehead or at the base of your skull. If you have nausea or vomiting, eat a light diet until your headache eases. If you have a migraine headache, use sunglasses when in the daylight or around bright indoor lighting until your symptoms get better. Bright glaring light can make this type of headache worse. Follow-up care Follow up with your healthcare provider, or as advised. Talk with your provider if you have frequent headaches. He or she can help figure out a treatment plan. By knowing the earliest signs of headache, and starting treatment right away, you may be able to stop the pain yourself. When to seek medical advice Call your healthcare provider right away if any of these occur: Your head pain suddenly gets worse after sexual intercourse or strenuous activity Your head pain doesn t get better within 24 hours You aren t able to keep liquids down (repeated vomiting) Fever of 100.4 F (38 C) or higher, or as directed by your healthcare provider Stiff neck Extreme drowsiness, confusion, or fainting Dizziness or dizziness with spinning sensation (vertigo) Weakness in an arm or leg or one side of your face You have trouble talking or seeing [id number] [employer]. [address] [facility], [place] [address]. All rights reserved. This information is not intended as a substitute for professional medical care. Always follow yourhealthcare professional's instructions. Uncontrolled High Blood Pressure (Established) Your blood pressure was unusually high today. This can occur if you ve missed doses of your blood pressure medicine. Or it can happen if you are taking other medicines. These include some asthma inhalers, decongestants, diet pills, and street drugs like cocaine and amphetamine. Other causes include: Weight gain More salt in your diet Smoking Caffeine Your blood pressure can also rise if you are emotionally upset or in intense pain. It may go back to normal after a period of rest. Blood pressure measurements are given as 2 numbers. Systolic blood pressure is the upper number. This is the pressure when the heart contracts. Diastolic blood pressure is the lower number. This is the pressure when the heart relaxes between beats. You will see your blood pressure readings written together. For example, a person with a systolic pressure of 118 and a diastolic pressure of 78 will have 118/78 written in the medical record. To be high blood pressure, the numbers must be higher when tested over a period of time. Blood pressure is categorized as normal, elevated, or stage 1 or stage 2 high blood pressure: Normal blood pressure is systolic of less than 120 and diastolic of less than 80 (120/80) Elevated blood pressure is systolic of 120 to 129 and diastolic less than 80 Stage 1 high blood pressure is systolic is 130 to 139 or diastolic between 80 to 89 Stage 2 high blood pressure is when systolic is 140 or higher or the diastolic is 90 or higher Uncontrolled high blood pressure can cause serious health problems. It raises your risk for heart attack, stroke, and heart failure. In general, if you have high blood pressure, keeping your blood pressure below 130/80 mmHg may help prevent these problems. Your healthcare provider may prescribe medicine to help control blood pressure if lifestyle changes are not enough. Home care It s important to take steps to lower your blood pressure. If you are taking blood pressure medicine, the guidelines below may help you need less or no medicines in the future. Start a weight-loss program if you are overweight. Cut back on the amount of salt in your diet: oAvoid high-salt foods like olives, pickles, smoked meats, and salted potato chips. oDon t add salt to your food at the table. oUse only small amounts of salt when cooking. Start an exercise program. Talk with your healthcare provider about what exercise program is best for you. It doesn t have to be difficult. Even brisk walking for 20 minutes 3 times a week is a good form of exercise. Avoid medicines that stimulates the heart. This includes many mxpq-alb-ulfdzyc cold and sinus decongestant pills and sprays, as well as diet pills. Check the warnings about high blood pressure on thelabel. Before purchasing any fxev-fxk-gzhjxgy medicines or supplements, always ask the pharmacist about the product's potential interaction with your high blood pressure and your medicines. Stimulants such as amphetamine or cocaine could be lethal for someone with high blood pressure. Never take these. Limit how much caffeine you drink. Or switch to noncaffeinated beverages. Stop smoking. If you are a long-time smoker, this can be hard. Enroll in a stop- smoking program to make it more likely that you will succeed. Talk with your provider about ways to quit. Learn how to handle stress better. This is an important part of any program to lower blood pressure. Learn ways to relax. These include meditation, yoga, and biofeedback. If medicines were prescribed, take them exactly as directed. Missing doses may cause your blood pressure to get out of control. If you miss a dose or doses of your medicines, check with your healthcare provider or pharmacist about what to do. Consider buying an automatic blood pressure machine. Your provider may recommend a certain type. You can get one of these at most pharmacies. Measure your blood pressure twice a day, in the morning, and in the late afternoon. Keep a written record of your home blood pressure readings and take the record to your medical appointments. Here are some additional guidelines on home blood pressure monitoring from the [place] [employer]. Don't smoke or drink coffee for 30 minutes Go to the bathroom before the test. Relax for 5 minutes before taking the measurement. Sit correctly. Be sure your back is supported. Don't sit on a couch or soft chair. Uncross your feet and place them flat on the floor. Place your arm on a solid, flat surface like a table with the upper arm at heart level. Make certain the middle of the cuff is directly above the bend of the elbow.Check the monitor's instruction manual for an illustration. Take multiple readings. When you measure, take 2 or 3 readings one minute apart and record all of the results. Take your blood pressure at the same time every day, or as your healthcare provider recommends. Record the date, time, and blood pressure reading. Take the record with you to your next appointment. If your blood pressure monitor has a built-in memory, simply take the monitor with you to your next appointment. Call your provider if you have several high readings. Don't be frightened by a single high reading,but if you get several high readings, check in with your healthcare provider. Note: When blood pressure reaches a systolic (top number) of 180 or higher or a diastolic (bottom number) of 110 or higher, emergency medical treatment is required. Call your healthcare provider immediately. Follow-up care Regular visits to your own healthcare provider for blood pressure and medicine checks are an important part of your care. Make a follow-up appointment as directed. Bring the record of your home bloodpressure readings to the appointment. When to seek medical advice Call your healthcare provider right away if any of these occur: Blood pressure reaches a systolic (top number) of 180 or higher or diastolic (bottom number) of 110or higher, emergency medical treatment is required. Chest, arm, shoulder, neck, or upper back pain Shortness of breath Severe headache Throbbing or rushing sound in the ears Nosebleed Extreme drowsiness, confusion, or fainting Dizziness or dizziness with spinning sensation (vertigo) Weakness in an arm or leg or on one side of the face Trouble speaking or seeing 2632-1543 [employer]. [address] [place] [address]. All rights reserved. This information is not intended as a substitute for professional medical care. Always follow yourhealthcare professional's instructions. Additional Information VACCINATE! IT SAVES LIVES! Members of the community who have not yet received the COVID-19 vaccine and would like to receive it can visit one of [facility] vaccine clinics. There are many vaccine clinic locations within the [facility]. For locations and available times, please visit www.[email or web address]/. It is important to note that some COVID mobile vaccine clinics are held outdoors and may be canceled in rainy or stormy conditions. To learn more about pediatric vaccinations (ages 5-11), we invite you to visit the [facility] webpage. https://www.[email or web address].org/pages/[email or web address]-Ajjxu-Dkpusrngigk-Zgwxeunhyi-Radko-Nqb stions.htmlTo learn more about the COVID-19 vaccine, we invite you to visit the CDC website for a list of frequently asked questions. https://www.cdc.gov/coronavirus/2019-ncov/vaccines/faq.html [facility] Patient Portal Access Instructions: Stay connected with your healthcare team and access your personal medical information anytime with the [facility] Patient Portal. If you would like a full copy of your medical records please contact the [facility] Medical Records Department Sunday through Sunday between 8a.m. and 4:30p.m. Please follow the directions below to access the portal: 1.Access the email account you provided upon registration to the [facility].2.Look for an invitation email from [facility].3.Open the email and access the invitation link: Accept Invitation to [facility]4.Fill in the required christian to create your account. Sign into [email or web address] with your username and password that you created in the above steps to stay up to date. You can then view a summary of results, a summary of your visits, and the ability to download your summaries to your computer or send the information securely to a physician. Remember that your healthcare information is confidential, so carefully consider who you will allow to register on the [facility] Patient Portal for access to your information. You can also access the [facility] Patient Portal on the [employer]. Simply click on Health Records under [employer] and then click on the [employer] logo. HOW TO SAFELY DISPOSE OF PRESCRIPTION MEDICATIONS Please use one of the following methods to safely dispose of your unused medications. 1.Use a drug disposal kit: the drug disposal pouch allows you to safely discard your old and unuseddrugs. Ask your nurse to give you one when you are discharged.2.Visit a local take-back location: Many local pharmacies and police departments have programs that collect old and unwanted prescriptiondrugs. Call your local pharmacy or go to http://Crocs[employer]/[email or web address] to find one close to you.3.Make use of household items: Use cat litter or old coffee grounds to dispose medications if other options arenot available. Mix your drugs with these household products, seal them in an airtight container andthrow it into the garbage. Call [facility]: [phone] to be sure your drugs can be disposed of in this way. Some medicines may require a different approach.4.Never flush your medications down the toilet. IF YOU HAVE BEEN PRESCRIBED AN OPIOIDS FOR PAIN If you have been prescribed an opioid (such as hydrocodone, oxycodone or morphine), it is critical to understand the possible side effects and risks of opioid pain medications. Even when taken as directed, opioids can have several side effects including: Tolerance, meaning you might need to take more of a medication for the same pain relief. Nausea, vomiting and/or constipation. Sleepiness, dizziness, dry mouth, confusion, depression or itching. Physical dependence, meaning you have withdrawal symptoms when a medication is stopped ? this can develop within a few days. KNOW YOUR RESPONSIBILITIES It is important to know exactly how much and how often to take the opioid pain medications you are prescribed. Never take opioids in higher amounts or more often than prescribed. Do not combine opioids with alcohol or other drugs that cause drowsiness, such as benzodiazepines, also known as benzos,including diazepam and alprazolam, muscle relaxants or sleep aids. Never sell or share prescriptionopioids. This is illegal. Store opioids in a secure place and out of reach of others (including children, family, friends and visitors). The last page(s) of this document has been signed and retained as a CHART COPY Signatures Patient Education Materials Headache, Unspecified High Blood Pressure, Established, Out of Control Medication Leaflets My discharge plan and instructions have been reviewed and explained to me and IJOÃO BRIGITTE D understand my current condition and have read and understand these discharge instructions. I have received a written copy of the plan/instructions. If I have questions, I am aware that I should contact my doctor. 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 Automated exposure control, iterative reconstruction, and/or weight based adjustment of the mA/kV was utilized to reduce the radiation dose to as low as reasonably achievable. COMPARISON: . MR brain, March 12, 2023 HISTORY: ORDERING SYSTEM PROVIDED HISTORY: Reason for Exam: baum FINDINGS: There is no evidence of mass, midline shift, hemorrhage, or infarct. Although the brain morphology appears normal, the ventricles, cortical sulci, and subarachnoid cisterns appear prominent. There are no extra-axial fluid collections. No regions of pathologic attenuation are evident. Decreased density periventricular white matter. Regions of the orbits and paranasal sinuses included within the field of view are unremarkable. There is no displaced fracture or osseous neoplasm. The extracalvarial soft tissues appear unremarkable. IMPRESSION: 1. No acute intracranial pathology. 2. Prominent CSF spaces usually indicate volume loss/atrophy as a manifestation of mild chronic white matter ischemia. COMMENT: Changes resultant from ischemia (even significant ischemia) may often be inapparent on CT exam, particularly if imaged early. Additionally, early changes due to neoplastic or inflammatory processes can be subtle to the extent that they are not prospectively noted. Therefore, if symptoms persist, or clinical suspicion for pathology remains, further evaluation may be obtained with MRI. Interpreted by: Blaze Whitaker MD Preliminary Report By: Blaze Whitaker MD Electronically signed By Blaze Whitaker MD Dictated Date: 12/03/2023 10:06:13 PM Prelim Date: 12/03/2023 10:07:19 PM Sign Date: 12/03/2023 10:07:19 PM [facility]ing [facility] Note Sinus rhythm Left anterior fascicular block Abnormal R-wave progression, late transition Left ventricular hypertrophy Electronic Signature: NEHAL PIERCE MD 12/03/2023 21:34:31[facility] 03-05-2024 Hospital Discharge instructions Patient Education 06/19/2023 11:30:50 Ankle Fracture Ankle Fracture You have an ankle fracture. This means that one or more of the bones that make up the ankle joint are broken. This often causes pain, swelling, and bruising. A fracture is treated with a splint, cast, or special boot. It will take about 4 to 6 weeks for thefracture to heal. Surgery may be needed to fix severe injuries. Home care You will be given a splint, cast, or boot to prevent movement at the ankle joint. Unless you were told otherwise, use crutches or a walker. Don t put weight on the injured leg until cleared by your healthcare provider to do so. Crutches and walkers can be rented at many pharmacies and surgical or orthopedic supply stores. Don t put weight on a splint. It will break. Keep your leg raised to reduce pain and swelling. When sleeping, place a pillow under the injured leg. When sitting, support the injured leg so it is often. This is very important during the first 48hours. Apply an ice pack over the injured area for no more than 15 to 20 minutes. Do this every 3 to 6 hours for the first 24 to 48 hours. Keep using ice packs 3 to 4 times a day for the next 2 to 3 days, then as needed to ease pain and swelling. To make an ice pack, put ice cubes in a plastic bag that seals at the top. Wrap the bag in a clean, thin towel or cloth. Never put ice or an ice pack directly on the skin. You can place the ice pack directly over the cast or splint. As the ice melts, be careful that the cast or splint doesn t get wet. Keep the cast, splint, or boot completely dry at all times. Bathe with your cast, splint, or boot out of the water, protected with [address] 1 bag outside of the other. Tape each bag with duct tape at the top end or use rubber bands. Water can still leak in. So it's best to keep the cast, splint, or boot away from water. If a boot or fiberglass cast or splint gets wet, dry it with a co founder and chairman on a cool setting. You may use rltj-fnj-lcsrzkv pain medicine to control pain, unless another pain medicine was prescribed. Talk with your provider before using these medicines if you have chronic liver or kidney disease or ever had a stomach ulcer or GI (gastrointestinal) bleeding. Follow-up care Follow up with your healthcare provider in 1 week, or as advised. This is to be sure the bone is healing correctly. If you were given a splint, it may be changed to a cast or boot at your follow-up visit. If X-rays were taken, you will be told of any new findings that may affect your care. When to seek medical advice Call your healthcare provider right away if any of these occur: The plaster cast or splint becomes wet or soft The fiberglass cast or splint stays wet for more than 24 hours There is increased tightness, sore areas, or pain under the cast or splint Your toes become swollen, cold, blue, numb, or tingly The cast or splint becomes loose The cast or splint has a bad smell The cast or splint develops cracks or breaks [id number] [employer]. [address] [place] [address]. All rights reserved. This information is not intended as a substitute for professional medical care. Always follow yourhealthcare professional's instructions. Follow Up Care 06/19/2023 10:41:55 With:ROEL VASQUEZ DO, Orthopedic Address: [address] [place] [phone] When:2-4 days Comments:call today to arrange an appointment [facility] 03-05-2024 Emergency department Discharge summary Discharge Instructions Thank you for allowing [facility] to assist you with your healthcare needs. The following is importantdischarge information regarding your hospital visit. Diagnosis from Today's Visit Ankle fracture Ankle pain-swelling What to Do Next Instructions from Your Care Team Call the orthopedist today to arrange a followup appointment No qualifying data available. Post Acute Orders No qualifying data available. You Need to Schedule the Following Appointments Follow Up with ROEL VASQUEZ DO Orthopedic When Within 2-4 days Why: call today to arrange an appointment Where: [address] [place] [phone] Allergies Crestor (Myalgia) Demerol HCl (SEVERE N/V) Epinephrine (SEVERE SHAKING) Iodine (HIVES) Medications Please ask your primary doctor or pharmacist before taking any other medication not listed, including over the counter drugs, herbal medications, vitamins and or supplements as they may interact withyour home medications. What How Much When Why Instructions Last Dose Unchanged aspirin (aspirin 81 mg oral tablet, chewable) 1 tab(s) by mouth Every day Duration: 90 Days Unchanged bisoprolol (bisoprolol 5 mg oral tablet) 1 tab(s) by mouth Once a day Unchanged DME (Alcohol Swabs) See instructions Diabetes mellitus with microalbuminuria Diabetic peripheral vascular disease Supply 1 box, 90 day supply, test blood sugars once daily Unchanged DME (Blood Glucose Test Machine) See instructions Diabetes mellitus with microalbuminuria Diabetic peripheral vascular disease Use as directed Brand type per insurance or patient preference Unchanged DME (Blood Glucose Test Strips) See instructions Type II diabetes mellitus 1 bottle of 100, 90 day supply to test blood sugars once daily. Inulix Freestyle test strips. Unchanged DME (Blood Glucose Test Strips) See instructions Diabetes mellitus with microalbuminuria Diabetic peripheral vascular disease Please provide insurance preferred test strips to match glucose monitor. Test blood sugars once daily. Unchanged DME (Blood Pressure Cuff) See instructions HTN (hypertension) Type II diabetes mellitus Check and Log Blood Pressure Daily Unchanged DME (DME MISCellaneous) See instructions Diabetes Pen needles, enough for 4 injections daily x 30 days. Any 4/ 5 mm pen needle in stock and covered by insurance is appropriate Unchanged DME (Lancets) See instructions Diabetes mellitus with microalbuminuria Diabetic peripheral vascular disease test blood sugars once daily, 100 Each, 90 day supply Unchanged DME (Pen needles 4 mm) See instructions qs for 1 month supply Unchanged insulin glargine (Basaglar 100 unit(s)/ mL 3 mL KwikPen) 20 unit(s) Subcutaneous Once a day Diabetes mellitus with microalbuminuria Diabetic peripheral vascular disease Duration: 90 Days discontinue lantus, Basaglar is insurance preferred. Unchanged lisinopril (lisinopril 40 mg oral tablet) 1 tab(s) by mouth Once a day Duration: 90 Days take 1 tablet by mouth once daily Unchanged Misc Medication (DROPLET NDL [id number] PEN) Please take this list to your next doctor s visit. Bring all medications you take, including over the counter medications, herbals and other supplements with you to your doctor s visit. Patients and families are reminded to discard old lists and to update any records with all medication providers or retail pharmacies. Education Materials Ankle Fracture You have an ankle fracture. This means that one or more of the bones that make up the ankle joint are broken. This often causes pain, swelling, and bruising. A fracture is treated with a splint, cast, or special boot. It will take about 4 to 6 weeks for thefracture to heal. Surgery may be needed to fix severe injuries. Home care You will be given a splint, cast, or boot to prevent movement at the ankle joint. Unless you were told otherwise, use crutches or a walker. Don t put weight on the injured leg until cleared by your healthcare provider to do so. Crutches and walkers can be rented at many pharmacies and surgical or orthopedic supply stores. Don t put weight on a splint. It will break. Keep your leg raised to reduce pain and swelling. When sleeping, place a pillow under the injured leg. When sitting, support the injured leg so it is often. This is very important during the first 48hours. Apply an ice pack over the injured area for no more than 15 to 20 minutes. Do this every 3 to 6 hours for the first 24 to 48 hours. Keep using ice packs 3 to 4 times a day for the next 2 to 3 days, then as needed to ease pain and swelling. To make an ice pack, put ice cubes in a plastic bag that seals at the top. Wrap the bag in a clean, thin towel or cloth. Never put ice or an ice pack directly on the skin. You can place the ice pack directly over the cast or splint. As the ice melts, be careful that the cast or splint doesn t get wet. Keep the cast, splint, or boot completely dry at all times. Bathe with your cast, splint, or boot out of the water, protected with [address] 1 bag outside of the other. Tape each bag with duct tape at the top end or use rubber bands. Water can still leak in. So it's best to keep the cast, splint, or boot away from water. If a boot or fiberglass cast or splint gets wet, dry it with a co founder and chairman on a cool setting. You may use updj-pzd-ilazlog pain medicine to control pain, unless another pain medicine was prescribed. Talk with your provider before using these medicines if you have chronic liver or kidney disease or ever had a stomach ulcer or GI (gastrointestinal) bleeding. Follow-up care Follow up with your healthcare provider in 1 week, or as advised. This is to be sure the bone is healing correctly. If you were given a splint, it may be changed to a cast or boot at your follow-up visit. If X-rays were taken, you will be told of any new findings that may affect your care. When to seek medical advice Call your healthcare provider right away if any of these occur: The plaster cast or splint becomes wet or soft The fiberglass cast or splint stays wet for more than 24 hours There is increased tightness, sore areas, or pain under the cast or splint Your toes become swollen, cold, blue, numb, or tingly The cast or splint becomes loose The cast or splint has a bad smell The cast or splint develops cracks or breaks 6283-6334 [employer]. [address] [place] [address]. All rights reserved. This information is not intended as a substitute for professional medical care. Always follow yourhealthcare professional's instructions. Additional Information VACCINATE! IT SAVES LIVES! Members of the community who have not yet received the COVID-19 vaccine and would like to receive it can visit one of [facility] vaccine clinics. There are many vaccine clinic locations within the [facility]. For locations and available times, please visit www.[email or web address].[email or web address]/. It is important to note that some COVID mobile vaccine clinics are held outdoors and may be canceled in rainy or stormy conditions. To learn more about pediatric vaccinations (ages 5-11), we invite you to visit the [facility] webpage. https://www.[email or web address].org/pages/[email or web address]-Twxus-Bjczbzwukaf-Wohpilxirl-[email or web address] stions.htmlTo learn more about the COVID-19 vaccine, we invite you to visit the CDC website for a list of frequently asked questions. https://www.cdc.gov/coronavirus/2019-ncov/vaccines/faq.html [facility] Patient Portal Access Instructions: Stay connected with your healthcare team and access your personal medical information anytime with the [facility] Patient Portal. If you would like a full copy of your medical records please contact the [facility] Medical Records Department Sunday through Sunday between 8a.m. and 4:30p.m. Please follow the directions below to access the portal: 1.Access the email account you provided upon registration to the hospital.2.Look for an invitation email from [facility].3.Open the email and access the invitation link: Accept Invitation to [facility].Fill in the required christian to create your account. Sign into [email or web address] with your username and password that you created in the above steps to stay up to date. You can then view a summary of results, a summary of your visits, and the ability to download your summaries to your computer or send the information securely to a physician. Remember that your healthcare information is confidential, so carefully consider who you will allow to register on the [facility] Patient Portal for access to your information. You can also access the [facility] Patient Portal on the [employer]. Simply click on Health Records under [employer] and then click on the [facility] logo. HOW TO SAFELY DISPOSE OF PRESCRIPTION MEDICATIONS Please use one of the following methods to safely dispose of your unused medications. 1.Use a drug disposal kit: the drug disposal pouch allows you to safely discard your old and unuseddrugs. Ask your nurse to give you one when you are discharged.2.Visit a local take-back location: Many local pharmacies and police departments have programs that collect old and unwanted prescriptiondrugs. Call your local pharmacy or go to http://[employer]/[email or web address] to find one close to you.3.Make use of household items: Use cat litter or old coffee grounds to dispose medications if other options arenot available. Mix your drugs with these household products, seal them in an airtight container andthrow it into the garbage. Call [facility]: [phone] to be sure your drugs can be disposed of in this way. Some medicines may require a different approach.4.Never flush your medications down the toilet. IF YOU HAVE BEEN PRESCRIBED AN OPIOIDS FOR PAIN If you have been prescribed an opioid (such as hydrocodone, oxycodone or morphine), it is critical to understand the possible side effects and risks of opioid pain medications. Even when taken as directed, opioids can have several side effects including: Tolerance, meaning you might need to take more of a medication for the same pain relief. Nausea, vomiting and/or constipation. Sleepiness, dizziness, dry mouth, confusion, depression or itching. Physical dependence, meaning you have withdrawal symptoms when a medication is stopped ? this can develop within a few days. KNOW YOUR RESPONSIBILITIES It is important to know exactly how much and how often to take the opioid pain medications you are prescribed. Never take opioids in higher amounts or more often than prescribed. Do not combine opioids with alcohol or other drugs that cause drowsiness, such as benzodiazepines, also known as benzos,including diazepam and alprazolam, muscle relaxants or sleep aids. Never sell or share prescriptionopioids. This is illegal. Store opioids in a secure place and out of reach of others (including children, family, friends and visitors). The last page(s) of this document has been signed and retained as a CHART COPY Signatures Patient Education Materials Ankle Fracture Medication Leaflets My discharge plan and instructions have been reviewed and explained to me and I,ALEXUS MOYER understand my current condition and have read and understand these discharge instructions. I have received a written copy of the plan/instructions. If I have questions, I am aware that I should contact my doctor. 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 HISTORY: ORDERING SYSTEM PROVIDED HISTORY: Reason for Exam: fall FINDINGS: Comminuted minimally displaced fracture involves the distal right fibula with attendant soft tissue swelling. The medial and posterior malleoli remain intact. There is some posterior subluxation of the distal tibia on the talus. Subtalar joint is smoothly marginated. IMPRESSION: Comminuted minimally displaced fracture distal right fibula with posterior subluxation of the distal tibia on the talus. Interpreted by: Fan Keller DO Preliminary Report By: Fan Keller DO Electronically signed By Fan Keller DO Dictated Date: 06/19/2023 11:15:12 AM Prelim Date: 06/19/2023 11:16:31 AM Sign Date: 06/19/2023 11:16:31 AM Ordering Provider: [facility]12-14-2023 Hospital Discharge instructions Patient Education 03/29/2023 12:49:01 Weakness, Ywoq-nw-Nqgt Weakness Weakness is a lack of strength. You may feel weak all over your body (generalized), or you may feelweak in one part of your body (focal). There are many potential causes of weakness. Sometimes, the cause of your weakness may not be known. Some causes of weakness can be serious, so it is important to see your doctor. Follow these instructions at home: Activity Rest as needed. Try to get enough sleep. Most adults need 7 8 hours of sleep each night. Talk to your doctor about how much sleep you need each night. Do exercises, such as arm curls and leg raises, for 30 minutes at least 2 days a week or as told byyour doctor. Think about working with a physical therapist or security trainer to help you get stronger. General instructions Take tkdu-xly-ogslvxf and prescription medicines only as told by your doctor. Eat a healthy, well-balanced diet. This includes: ?Proteins to build muscles, such as lean meats and fish. ?Fresh fruits and vegetables. ?Carbohydrates to boost energy, such as whole grains. Drink enough fluid to keep your pee (urine) pale yellow. Keep all follow-up visits as told by your doctor. This is important. Contact a doctor if: Your weakness does not get better or it gets worse. Your weakness affects your ability to: ?Think clearly. ?Do your normal daily activities. Get help right away if you: Have sudden weakness on one side of your face or body. Have chest pain. Have trouble breathing or shortness of breath. Have problems with your vision. Have trouble talking or swallowing. Have trouble standing or walking. Are light-headed. Pass out (lose consciousness). Summary Weakness is a lack of strength. You may feel weak all over your body or just in one part of your body. There are many potential causes of weakness. Sometimes, the cause of your weakness may not be known. Rest as needed, and try to get enough sleep. Most adults need 7 8 hours of sleep each night. Eat a healthy, well-balanced diet. This information is not intended to replace advice given to you by your health care provider. Make sure you discuss any questions you have with your health care provider. Document Released: 03/15/2009 Document Revised: 11/06/2018 Document Reviewed: 11/06/2018 [email or web address] Patient Education 2020 [employer]. Follow Up Care 03/14/2023 15:44:42 With:MEY MADDOX Address: [address] [place] [address] [phone] When:04/02/2023 12:30:00 Comments:This is your post-hospital follow-up appointment. [facility] 12-14-2023 Note Discharge Instructions Thank you for allowing [facility] to assist you with your healthcare needs. The following is importantdischarge information regarding your hospital visit. Your Care Team MEY MADDOX LISA APRN Your Diagnosis Asthenia, Weakness Brachial neuritis CVA (cerebrovascular accident) Type 2 diabetes mellitus with hyperlipidemia What to do next Instructions From Your Doctor NO DRIVING UNTIL A DRIVING EVAL HAS BEEN DONE. Schedule this appointment with your PCP. Scheduled Follow-Up Appointments Appointment Type When With Where [facility] 04/02/2023 12:30 PM EST MEY MADDOX [address] [phone] Follow Up Appointments Follow Up with MEY MADDOX When 04/02/2023 12:30 PM EST Why: This is your post-hospital follow-up appointment. Where: [address] [place] [phone] The Following Activity and Diet Have Been Ordered for You Discharge Activity - Ordered -- Resume your pre-hospitalization activity, 03/28/23 10:28:00 EST Discharge Driving Restrictions - Ordered -- * Other, specify in special instructions, NO DRIVING UNTIL A DRIVING EVAL HAS BEEN DONE, 03/28/23 11:04:00 EST Discharge Diet - Ordered -- No changes were made to your diet during your hospital stay. Please resume your pre hospitalization diet on discharge., 03/28/23 10:28:00 EST Allergies Crestor (Myalgia) Demerol HCl (SEVERE N/V) Epinephrine (SEVERE SHAKING) Iodine (HIVES) Immunizations This Visit Not Given Vaccine Commentsinfluenza virus vaccine, inactivated Patient Refuses Medications Please ask your primary doctor or pharmacist before taking any other medication not listed, including over the counter drugs, herbal medications, vitamins and or supplements as they may interact withyour home medications. What How Much When Why Instructions Last Dose New gabapentin (gabapentin 100 mg oral capsule) 1 cap by mouth Three (3) times a day Brachial neuritis Duration: 30 Days Pickup at [facility][id number] Changed acetaminophen 650 Milligram by mouth Every 6 hours as needed for Pain, scale 1-10 Unchanged aspirin (aspirin 81 mg oral tablet, chewable) 1 tab(s) by mouth Every day Duration: 90 Days Unchanged atorvastatin (atorvastatin 80 mg oral tablet) 1 tab(s) by mouth Once a day Duration: 90 Days Unchanged bisoprolol (bisoprolol 5 mg oral tablet) 1 tab(s) by mouth Once a day Unchanged clopidogrel (Plavix 75 mg oral tablet) 1 tab(s) by mouth Once a day Duration: 30 Days Unchanged DME (DME MISCellaneous) See instructions Diabetes Pen needles, enough for 4 injections daily x 30 days. Any 4/ 5 mm pen needle in stock and covered by insurance is appropriate Unchanged ezetimibe (ezetimibe 10 mg oral tablet) 1 tab(s) by mouth Once a day Unchanged insulin glargine (Lantus Solostar Pen 100 units/ mL 3 mL Pen) 15 unit(s) Subcutaneous Daily at bedtime Diabetes Unchanged insulin lispro (HumaLOG) (HumaLOG KwikPen 100 units/ mL injectable PEN) 5 unit(s) Subcutaneous Three (3) times a day with meals Diabetes Duration: 30 Days Hold if you eat less than 50% of your meal Unchanged NIFEdipine (NIFEdipine 30 mg oral tablet, extended release) 1 tab(s) by mouth Once a day Duration: 30 Days please discontinue prescription for nifedipine 60. Decreased to 30 to allow for CANDI in addition given diabetes Unchanged pantoprazole (Protonix 40 mg oral enteric coated tablet) 1 tab(s) by mouth Once a day before a meal Duration: 30 Days Pharmacy Information [facility] #[id number]: [address], [place] [phone] What How Much When Comments Stop Taking glucose (glucose 50% intravenous solution) 25 Milliliter IV Push As Directed as needed for Hypoglycemia Stop Taking hydrALAZINE (hydrALAZINE 20 mg/ mL injectable solution) 0.5 Milliliter IV Push Every 4 hours as needed for Blood pressure control Stop Taking lisinopril (lisinopril 5 mg oral tablet) 1 tab(s) by mouth Once a day Duration: 30 Days Stop Taking melatonin (melatonin 3 mg oral tablet) 1 tab(s) by mouth Daily at bedtime as needed for Sleep Please take this list to your next doctor s visit. Bring all medications you take, including over the counter medications, herbals and other supplements with you to your doctor s visit. Patients and families are reminded to discard old lists and to update any records with all medication providers or retail pharmacies. Medication Leaflets insulin glargine (IN jackson carmine GLASuman hunt) Basaglar KwikPen, Basaglar Tempo Pen, Insulin Glargine Prefilled Pen, Insulin Glargine Solostar Pen, Lantus, Lantus Solostar Pen, Semglee (Prefilled Pen), Semglee (Vial), Toujeo Max SoloStraymundo, Toujeo SoloStraymundo What is the most important information I should know about insulin glargine? Never share an injection pen, even if you changed the needle. What is insulin glargine? Insulin glargine is a long-acting insulin that starts to work several hours after injection and keeps working evenly for 24 hours. Insulin glargine is used to improve blood sugar control in people with diabetes mellitus. Toujeo is for use in adults with type 1 or type 2 diabetes. Basaglar, Lantus, and Semglee are for use in adults with type 1 or 2 diabetes and in children at least 6 years old with type 1 diabetes (not type 2). For type 1 diabetes, insulin glargine is used together with a short-acting insulin given before meals. Insulin glargine may also be used for purposes not listed in this medication guide. What should I discuss with my healthcare provider before using insulin glargine? You should not use this medicine if you are allergic to insulin, or if you are having an episode ofhypoglycemia (low blood sugar) or diabetic ketoacidosis (call your doctor for treatment). Insulin glargine is not approved for use by anyone younger than 6 years old, and some brands are for use only in adults. Do not use this medicine to treat type 2 diabetes in a child of any age. Tell your doctor if you have ever had: liver or kidney disease; or heart failure or other heart problems. Tell your doctor if you also take pioglitazone or rosiglitazone (sometimes contained in combinations with glimepiride or metformin). Taking certain oral diabetes medicines while you are using insulinmay increase your risk of serious heart problems. Tell your doctor if you are or . Follow your doctor's instructions about using this medicine if you are or you become . Controlling diabetes is very important during . How should I use insulin glargine? Follow all directions on your prescription label and read all medication guides or instruction sheets. Use the medicine exactly as directed. Insulin glargine is injected under the skin, usually once per day at the same time of day. When treating type 1 diabetes, use your short-acting insulin before meals as directed by your doctor. Insulin glargine must not be given with an insulin pump, or mixed with other insulins. Do not inject insulin glargine into a vein or a muscle. Ask your doctor or pharmacist if you don't understand how to use an injection. Prepare an injection only when you are ready to give it. Call your pharmacist if the medicine lookscloudy, has changed colors, or has particles in it. Your healthcare provider will show you where to inject insulin glargine. Do not inject into the same place two times in a row. Avoid injecting into skin that is damaged, tender, bruised, pitted, thickened, scaly, or has a scaror hard lump. Toujeo contains 300 units of insulin glargine per milliliter (mL), which is 3 times stronger than brands that contain 100 units per mL. Your dose needs may change if you switch to a different brand, strength, or form of this medicine. Avoid medication errors by using only the medicine your doctor prescribes. If you use an injection pen, use only the injection pen that comes with insulin glargine. Attach a new needle before each use. Do not transfer the insulin from the pen into a syringe. Never share an injection pen, even if you changed the needle. Sharing these devices can pass infections from person to person. Blood sugar can be affected by stress, illness, surgery, exercise, alcohol use, or skipping meals. Low blood sugar (hypoglycemia) can make you feel very hungry, dizzy, irritable, or shaky. To quickly treat hypoglycemia, eat or drink hard candy, crackers, raisins, fruit juice, or non-diet soda. Your doctor may prescribe glucagon injection in case of severe hypoglycemia. Tell your doctor if you have frequent symptoms of high blood sugar (hyperglycemia) such as increased thirst or urination. Ask your doctor before changing your medication dosage. Keep this medicine in its original container protected from heat and light. Do not freeze insulin or store it near the cooling element in a refrigerator. Throw away any insulin that has been frozen. Storing unopened (not in use) insulin glargine: Refrigerate and use until expiration date; or (Basaglar, Lantus, or Semglee) Store at room temperature (below 86 degrees Fahrenheit) and use within 28 days. Storing opened (in use) insulin glargine: Store the vial in a refrigerator or at room temperature and use within 28 days. Store the injection pen at room temperature (do not refrigerate) and use within 28 days. Store Toujeo at room temperature below 86 F (do not refrigerate) and use within 56 days. Do not store an injection pen with the needle attached. Do not reuse a needle or syringe. Place them in a puncture-proof 'sharps' container and dispose of it following state or local laws. Keep out of the reach of children and pets. Wear a medical alert tag or carry an ID card to let others know you have diabetes. What happens if I miss a dose? Call your doctor for instructions if you miss a dose. Do not use more than one dose in a 24-hour period unless your doctor tells you to. Get your prescription refilled before you run out of medicine completely. What happens if I overdose? Seek emergency medical attention or call the Poison Help line at . Insulin overdose can cause severe hypoglycemia. Symptoms include drowsiness, confusion, blurred vision, numbness or tingling in your mouth, trouble speaking, muscle weakness, clumsy or jerky movements, seizure (convulsions), or loss of consciousness. What should I avoid while using insulin glargine? Avoid driving or hazardous activity until you know how this medicine will affect you. Your reactions could be impaired. Avoid medication errors by always checking the medicine label before injecting your insulin. Avoid drinking alcohol or using medicines that contain alcohol. It may interfere with your diabetestreatment. What are the possible side effects of insulin glargine? Get emergency medical help if you have signs of insulin allergy: redness or swelling where an injection was given, itchy skin rash over the entire body, trouble breathing, fast heartbeats, feeling like you might pass out, or swelling in your tongue or throat. Call your doctor at once if you have: rapid weight gain, swelling in your feet or ankles; shortness of breath; or low blood potassium--leg cramps, constipation, irregular heartbeats, fluttering in your chest, increased thirst or urination, numbness or tingling, muscle weakness or limp feeling. Common side effects may include: low blood sugar; swelling, weight gain; allergic reaction, itching, rash; or thickening or hollowing of the skin where you injected the medicine. This is not a complete list of side effects and others may occur. Call your doctor for medical advice about side effects. You may report side effects to FDA at 6-272-EPK-7266. What other drugs will affect insulin glargine? Many drugs can affect your blood sugar and may also affect insulin glargine. This includes prescription and amni-wqy-lkaqwjg medicines, vitamins, and herbal products. Tell your doctor about all othermedicines you use. Not all possible interactions are listed here. Where can I get more information? Your pharmacist can provide more information about insulin glargine. Remember, keep this and all other medicines out of the reach of children, never share your medicines with others, and use this medication only for the indication prescribed. Every effort has been made to ensure that the information provided by [employer]. ('[employer]') is accurate, up-to-date, and complete, but no guarantee is made to that effect. Drug information contained herein may be time sensitive. [employer] information has been compiled for use by healthcare practitioners and consumers in the [place] and therefore [employer] does not warrant that uses outside of the [place] are appropriate, unless specifically indicated otherwise. [employer] drug information does not endorse drugs, diagnose patients or recommend therapy. Intern drug information isan informational resource designed to assist licensed healthcare practitioners in caring for their p atients and/or to serve consumers viewing this service as a supplement to, and not a substitute for, the expertise, skill, knowledge and judgment of healthcare practitioners. The absence of a warningfor a given drug or drug combination in no way should be construed to indicate that the drug or drug combination is safe, effective or appropriate for any given patient. [employer] does not assume any responsibility for any aspect of healthcare administered with the aid of information [employer] provides. The information contained herein is not intended to cover all possible uses, directions, precautions, warnings, drug interactions, allergic reactions, or adverse effects. If you have questions about the drugs you are taking, check with your doctor, nurse or pharmacist. Copyright 8854-3903 [employer]. Version: 17.. Revision Date: 11/24/2022. nifedipine (rodger FED i peen) NIFEdipine (Eqv-Adalat CC), NIFEdipine (Eqv-Procardia XL), Procardia XL What is the most important information I should know about nifedipine? You may not be able to use this medicine if your heart cannot pump blood properly, or if you also take rifampin. Tell your doctor about all your current medicines and any you start or stop using. Many drugs can interact, and some drugs should not be used together. What is nifedipine? Nifedipine is a calcium channel tabby that is used to treat hypertension (high blood pressure) orangina (chest pain). Nifedipine may also be used for purposes not listed in this medication guide. What should I discuss with my healthcare provider before taking nifedipine? You should not use nifedipine if you are allergic to it. You may not be able to use nifedipine if your heart cannot pump blood properly. Some medicines can cause unwanted or dangerous effects when used with nifedipine. Your doctor may change your treatment plan if you also use: Mary's wort; an antibiotic--rifabutin, rifampin; or seizure medicine--carbamazepine, oxcarbazepine, phenobarbital, phenytoin. Tell your doctor if you have ever had: a heart attack; very low blood pressure; severe narrowing of the aortic valve in your heart (aortic stenosis); congestive heart failure; cirrhosis or other liver disease; kidney disease; or diabetes. Older adults may be more sensitive to the effects of this medicine. It is not known whether this medicine will harm an unborn baby. Tell your doctor if you are or plan to become . You should not breastfeed while using nifedipine. Nifedipine capsules or tablets may contain lactose. Tell your doctor if you have galactose intolerance, or severe problems with lactose (milk sugar). Nifedipine is not approved for use by anyone younger than 18 years old. How should I take nifedipine? Follow all directions on your prescription label and read all medication guides or instruction sheets. Your doctor may occasionally change your dose. Use the medicine exactly as directed. Swallow the tablet or capsule whole and do not crush, chew, or break it. Take the extended-release tablet on an empty stomach. Your dose needs may change if you switch to a different brand, strength, or form of this medicine. Avoid medication errors by using only the form and strength your doctor prescribes. Your blood pressure will need to be checked often and you may need other medical tests. Keep using this medicine even if you feel well. Use all your heart or blood pressure medications asdirected and read all medication guides you receive. Do not change your dose or stop taking your medicine without your doctor's advice. You may have very low blood pressure while taking this medication. Call your doctor if you are sickwith vomiting or diarrhea, or if you are sweating more than usual. If you need surgery, tell the surgeon ahead of time that you are using nifedipine. You may need to stop using the medicine at least 36 hours before surgery. Some tablets are made with a shell that is not absorbed or melted in the body. Part of this shell may appear in your stool. This is normal and will not make the medicine less effective. Store in the original container at room temperature, away from moisture, heat, and light. What happens if I miss a dose? Take the medicine as soon as you can, but skip the missed dose if it is almost time for your next dose. Do not take two doses at one time. Take the extended-release tablet without food. What happens if I overdose? Seek emergency medical attention or call the Poison Help line at . Overdose symptoms may include irregular heartbeats, severe dizziness, or fainting. What should I avoid while taking nifedipine? Grapefruit may interact with nifedipine and lead to unwanted side effects. Avoid the use of grapefruit products. Avoid taking an herbal supplement containing [place]'s wort. Avoid getting up too fast from a sitting or lying position, or you may feel dizzy. Get up slowly and steady yourself to prevent a fall. What are the possible side effects of nifedipine? Get emergency medical help if you have signs of an allergic reaction (hives, difficult breathing, swelling in your face or throat) or a severe skin reaction (fever, sore throat, burning eyes, skin pain, red or purple skin rash with blistering and peeling). Call your doctor at once if you have: worsening chest pain; pounding heartbeats or fluttering in your chest; a light-headed feeling, like you might pass out; swelling in your hands or lower legs; or upper stomach pain, jaundice (yellowing of the skin or eyes). You may have more severe or more frequent episodes of angina when you first start taking nifedipineor whenever your dose is changed. Common side effects may include: swelling; flushing (warmth, redness, or tingly feeling); headache, dizziness; nausea, heartburn; or feeling weak or tired. This is not a complete list of side effects and others may occur. Call your doctor for medical advice about side effects. You may report side effects to FDA at 2-876-MFG-7955. What other drugs will affect nifedipine? If you have been using a beta-tabby medication (such as atenolol, carvedilol, metoprolol, propranolol, sotalol, and others), you should not stop using it suddenly. Follow your doctor's instructionsabout tapering your dose. Stopping a beta-tabby too quickly can cause serious heart problems thatwill not be prevented by nifedipine. Tell your doctor about all your other medicines, especially other heart or blood pressure medications. When you start or stop taking other medications, your doctor may need to adjust your nifedipine dose. Some drugs can affect your blood levels of other drugs you take, which may increase side effects or make the medications less effective. Many drugs can affect nifedipine, and some drugs should not be used at the same time. Tell your doctor about all your current medicines and any medicine you start or stop using. This includes prescription and emnl-vqm-rujwdka medicines, vitamins, and herbal products. Not all possible interactions are listed here. Where can I get more information? Your pharmacist can provide more information about nifedipine. Remember, keep this and all other medicines out of the reach of children, never share your medicines with others, and use this medication only for the indication prescribed. Every effort has been made to ensure that the information provided by [employer] is accurate, up-to-date, and complete, but no guarantee is made to that effect. Drug information contained herein may be time sensitive. [employer] information has been compiled for use by healthcare practitioners and consumers in the [place] and therefore [employer] does not warrant that uses outside of the [place] are appropriate, unless specifically indicated otherwise. [facility] [employer] drug information does not endorse drugs, diagnose patients or recommend therapy. [facility] [employer] drug information isan informational resource designed to assist licensed healthcare practitioners in caring for their p atients and/or to serve consumers viewing this service as a supplement to, and not a substitute for, the expertise, skill, knowledge and judgment of healthcare practitioners. The absence of a warningfor a given drug or drug combination in no way should be construed to indicate that the drug or drug combination is safe, effective or appropriate for any given patient. [employer] does not assume any responsibility for any aspect of healthcare administered with the aid of information [employer] provides. The information contained herein is not intended to cover all possible uses, directions, precautions, warnings, drug interactions, allergic reactions, or adverse effects. If you have questions about the drugs you are taking, check with your doctor, nurse or pharmacist. Copyright 6665-5986 [employer]. Version: 15.. Revision Date: 11/17/2022. aspirin (oral) ( pir in) Aspi-Cor, Jamey Plus, Durlaza, Ecotrin, Miniprin, Vazalore What is the most important information I should know about aspirin? Aspirin can cause Wiley's syndrome, a serious and sometimes fatal condition in children. What is aspirin? Aspirin is a salicylate (tr-RQW-ab-ate) that is used to treat pain, and reduce fever or inflammation. Aspirin is sometimes used to treat or prevent heart attacks, strokes, and chest pain (angina). Aspirin should be used for these conditions only under the supervision of a doctor. Aspirin may also be used for purposes not listed in this medication guide. What should I discuss with my healthcare provider before taking aspirin? Using aspirin in a child or teenager with flu symptoms or chickenpox can cause a serious or fatal condition called Wiley's syndrome. You should not use aspirin if you are allergic to it, or if you have: a recent history of stomach or intestinal bleeding; a bleeding disorder such as hemophilia; or if you have ever had an asthma attack or severe allergic reaction after taking aspirin or an NSAID (non-steroidal anti-inflammatory drug). Tell your doctor if you have ever had: asthma or seasonal allergies; stomach ulcers; liver disease; kidney disease; a bleeding or blood clotting disorder; gout; or heart disease, high blood pressure, or congestive heart failure. Taking aspirin during late may cause bleeding in the mother or the baby during delivery. Tell your doctor if you are or plan to become . You should not breastfeed while using this medicine. How should I take aspirin? Use exactly as directed on the label, or as prescribed by your doctor. Always follow directions on the medicine label about giving aspirin to a child. Take with food if aspirin upsets your stomach. You must chew the chewable tablet before you swallow it. Do not crush, chew, break, or open an enteric-coated or delayed/extended-release pill. Swallow it whole. Tell your doctor if you have a planned surgery. Store at room temperature away from moisture and heat. Do not use aspirin if you smell a strong vinegar odor in the aspirin bottle. The medicine may no longer be effective. What happens if I miss a dose? Aspirin is used when needed. If you are on a dosing schedule, skip any missed dose. Do not use two doses at one time. What happens if I overdose? Seek emergency medical attention or call the Poison Help line at . Overdose may cause stomach pain, vomiting, diarrhea, vision or hearing problems, fast or slow breathing, or confusion. What should I avoid while taking aspirin? Avoid alcohol. Heavy drinking can increase your risk of stomach bleeding. Avoid taking ibuprofen if you take aspirin to prevent stroke or heart attack. Ibuprofen can make aspirin less effective in protecting your heart and blood vessels. Ask your doctor how far apart your doses should be. Ask a doctor or pharmacist before using other medicines for pain, fever, swelling, or cold/flu symptoms. They may contain ingredients similar to aspirin (such as magnesium salicylate, ibuprofen, ketoprofen, or naproxen). What are the possible side effects of aspirin? Get emergency medical help if you have signs of an allergic reaction: hives; difficult breathing; swelling of your face, lips, tongue, or throat. Stop using aspirin and call your doctor at once if you have: ringing in your ears, confusion, hallucinations, rapid breathing, seizure (convulsions); severe nausea, vomiting, or stomach pain; bloody or tarry stools, coughing up blood or vomit that looks like coffee grounds; fever lasting longer than 3 days; or swelling, or pain lasting longer than 10 days. Common side effects may include: upset stomach, heartburn; drowsiness; or mild headache. This is not a complete list of side effects and others may occur. Call your doctor for medical advice about side effects. You may report side effects to FDA at 1-892-KSZ-9478. What other drugs will affect aspirin? Ask your doctor before using aspirin if you take an antidepressant. Taking certain antidepressants with aspirin may cause you to bruise or bleed easily. Ask a doctor or pharmacist before using aspirin with any other medications, especially: a blood thinner (warfarin, Coumadin, Jantoven), or other medication used to prevent blood clots; or other salicylates such as Nuprin Backache Caplet, Kaopectate, KneeRelief, Pamprin Cramp Formula, Pepto-Bismol, Tricosal, Trilisate, and others. This list is not complete. Other drugs may affect aspirin, including prescription and fhsz-yxu-scwejhx medicines, vitamins, and herbal products. Not all possible drug interactions are listed here. Where can I get more information? Your pharmacist can provide more information about aspirin. Remember, keep this and all other medicines out of the reach of children, never share your medicines with others, and use this medication only for the indication prescribed. Every effort has been made to ensure that the information provided by [employer] is accurate, up-to-date, and complete, but no guarantee is made to that effect. Drug information contained herein may be time sensitive. [employer] information has been compiled for use by healthcare practitioners and consumers in the [place] and therefore [employer] does not warrant that uses outside of the [place] are appropriate, unless specifically indicated otherwise. [facility] drug information does not endorse drugs, diagnose patients or recommend therapy. [facility] drug information isan informational resource designed to assist licensed healthcare practitioners in caring for their p atients and/or to serve consumers viewing this service as a supplement to, and not a substitute for, the expertise, skill, knowledge and judgment of healthcare practitioners. The absence of a warningfor a given drug or drug combination in no way should be construed to indicate that the drug or drug combination is safe, effective or appropriate for any given patient. [employer] does not assume any responsibility for any aspect of healthcare administered with the aid of information [employer] provides. The information contained herein is not intended to cover all possible uses, directions, precautions, warnings, drug interactions, allergic reactions, or adverse effects. If you have questions about the drugs you are taking, check with your doctor, nurse or pharmacist. Copyright 5009-9412 [employer]. Version: 18.01. Revision Date: 11/06/2022. pantoprazole (oral/injection) (serrano TOE pra zole) First-Pantoprazole, Protonix, Protonix IV What is the most important information I should know about pantoprazole? Pantoprazole can cause kidney problems or new or worsening symptoms of lupus. Tell your doctor if you have: pain in your side or lower back, painful urination, blood or pus in your urine, joint pain or a skin rash on your cheeks or arms that worsens in sunlight. This medicines can cause diarrhea. Tell your doctor if you have diarrhea that is watery or bloody. You may be more likely to have a broken bone while using pantoprazole. Talk with your doctor about ways to keep your bones healthy. What is pantoprazole? Pantoprazole is used to promote healing of erosive esophagitis (damage to your esophagus caused by stomach acid) in adults and children who are at least 5 years old. Pantoprazole is also used in adults to treat the symptoms of gastroesophageal reflux disease (GERD)and other conditions involving excessive stomach acid such as Stiven-Morris syndrome. Pantoprazole may also be used for purposes not listed in this medication guide. What should I discuss with my healthcare provider before using pantoprazole? You should not use pantoprazole if you are allergic to it, or if you have: breathing problems; or you are allergic to any other stomach acid medicine such as lansoprazole, rabeprazole, esomeprazole, omeprazole, and others. Some drugs should not be used with pantoprazole. Your treatment plan may change if you also use anymedication that contains rilpivirine. Tell your doctor if you have or have ever had: a zinc deficiency; an electrolyte imbalance (such as low blood levels of potassium, calcium or magnesium); lupus; or liver or kidney disease. You may be more likely to have a broken bone while using pantoprazole. Talk with your doctor about ways to keep your bones healthy. Pantoprazole may harm an unborn baby. Tell your doctor if you are or plan to become . Ask a doctor if it is safe to breastfeed while using this medicine. How should I use pantoprazole? Follow all directions on your prescription label and read all medication guides or instruction sheets. Never use pantoprazole in larger amounts, or for longer than prescribed. Do not change your dose or stop using this medication without your doctor's advice. Avoid medication errors by using exactly as directed on the label, or as prescribed by your doctor. Pantoprazole is taken by mouth or given as an infusion into a vein. Pantoprazole tablets are taken by mouth, with or without food. Pantoprazole oral granules should betaken 30 minutes before a meal. Swallow the tablet whole and do not crush, chew, or break it. Read and carefully follow instructions for mixing and taking the oral granules. The oral granules can also be given through a nasogastric tube. Ask your doctor or pharmacist if you do not understand these instructions. Shake the oral suspension (liquid). Measure a dose with the supplied measuring device (not a kitchen spoon). Use this medicine for the full prescribed length of time, even if your symptoms quickly improve. You may use antacids if needed while you are taking pantoprazole tablets. Call your doctor if your symptoms do not improve, or if they get worse after using the medicine forthe number of days prescribed. You may need medical tests. This medicine can affect the results of certain medical tests. Tell any doctor or laboratory staff that you are using pantoprazole. This medicine can cause diarrhea. Tell your doctor if you have diarrhea that is watery or bloody. Store pantoprazole tablet and oral granules at room temperature away from moisture and heat. Store the oral suspension tightly closed in a refrigerator. Do not freeze and protect from light. Throw the medicine away after 30 days, even if there is still medicine left inside. What happens if I miss a dose? Use the medicine as soon as you can, but skip the missed dose if it is almost time for your next dose. Do not use two doses at one time. What happens if I overdose? Seek emergency medical attention or call the Poison Help line at . What should I avoid while using pantoprazole? Follow your doctor's instructions about any restrictions on food, beverages, or activity. Avoid getting pantoprazole oral suspension in your eyes. If contact does occur, rinse with water. What are the possible side effects of pantoprazole? Get emergency medical help if you have signs of an allergic reaction (hives, difficult breathing, swelling in your face or throat) or a severe skin reaction (fever, sore throat, burning eyes, skin pain, red or purple skin rash with blistering and peeling). Seek medical treatment if you have a serious drug reaction that can affect many parts of your body.Symptoms may include skin rash, fever, swollen glands, muscle aches, severe weakness, unusual bruising, or yellowing of your skin or eyes. Call your doctor at once if you have: severe stomach pain, diarrhea that is watery or bloody; nausea, vomiting, weight loss; sudden pain or trouble moving your hip, wrist, or back; pain, swelling, burning, or irritation around the IV needle; pain in your side or lower back, painful urination, blood or pus in your urine; signs of an electrolyte imbalance--increased thirst or urination, constipation, muscle weakness, leg cramps, numbness or tingling, feeling jittery, fluttering in your chest; new or worsening symptoms of lupus--joint pain, and a skin rash on your cheeks or arms that worsensin sunlight; or vitamin B12 deficiency--shortness of breath, feeling lightheaded, irregular heartbeats, muscle weakness, pale skin, tiredness, mood changes, numbness or tingling in your legs or arms. Long-term use of pantoprazole may increase your risk of serious side effects including stomach polyps. Talk with your doctor about these risks. Common side effects may include: headache, dizziness; stomach pain, gas, nausea, vomiting, diarrhea; joint pain; or fever, rash, or cold symptoms such as stuffy nose, sneezing, sore throat. This is not a complete list of side effects and others may occur. Call your doctor for medical advice about side effects. You may report side effects to FDA at 8-725-OWO-2379. What other drugs will affect pantoprazole? Tell your doctor about all your other medicines, especially: digoxin; methotrexate; or a diuretic or 'water pill'. This list is not complete. Other drugs may affect pantoprazole, including prescription and czpj-swp-whidwoi medicines, vitamins, and herbal products. Not all possible drug interactions are listed here. Where can I get more information? Your doctor or pharmacist can provide more information about pantoprazole. Remember, keep this and all other medicines out of the reach of children, never share your medicines with others, and use this medication only for the indication prescribed. Every effort has been made to ensure that the information provided by [employer] is accurate, up-to-date, and complete, but no guarantee is made to that effect. Drug information contained herein may be time sensitive. [employer] information has been compiled for use by healthcare practitioners and consumers in the [place] and therefore [employer] does not warrant that uses outside of the [place] are appropriate, unless specifically indicated otherwise. [facility] [employer] drug information does not endorse drugs, diagnose patients or recommend therapy. [facility] [employer] drug information isan informational resource designed to assist licensed healthcare practitioners in caring for their p atients and/or to serve consumers viewing this service as a supplement to, and not a substitute for, the expertise, skill, knowledge and judgment of healthcare practitioners. The absence of a warningfor a given drug or drug combination in no way should be construed to indicate that the drug or drug combination is safe, effective or appropriate for any given patient. [employer] does not assume any responsibility for any aspect of healthcare administered with the aid of information [facility] provides. The information contained herein is not intended to cover all possible uses, directions, precautions, warnings, drug interactions, allergic reactions, or adverse effects. If you have questions about the drugs you are taking, check with your doctor, nurse or pharmacist. Copyright 3410-5346 [employer]. Version: 22.01. Revision Date: 03/28/2023. clopidogrel (kloe PID oh grel) Plavix What is the most important information I should know about clopidogrel? You should not use this medicine if you have any active bleeding such as a stomach ulcer or bleeding in the brain. Clopidogrel increases your risk of bleeding, which can be severe or life- threatening. Call your doctor or seek emergency medical attention if you have bleeding that will not stop, if you have blood in your urine, black or bloody stools, or if you cough up blood or vomit that looks like coffee grounds. Do not stop taking clopidogrel without first talking to your doctor, even if you have signs of bleeding. Stopping clopidogrel may increase your risk of a heart attack or stroke. What is clopidogrel? Clopidogrel is used to lower your risk of having a stroke, blood clot, or serious heart problem after you've had a heart attack, severe chest pain (angina), or circulation problems. Clopidogrel may also be used for purposes not listed in this medication guide. What should I discuss with my healthcare provider before taking clopidogrel? You should not use clopidogrel if you are allergic to it, or if you have: any active bleeding; or a stomach ulcer or bleeding in the brain (such as from a head injury). Tell your doctor if you have ever had: an ulcer in your stomach or intestines; or a bleeding disorder or blood clotting disorder. Clopidogrel may not work as well if you have certain genetic factors that affect the breakdown of this medicine in your body. Your doctor may perform a blood test to make sure clopidogrel is right for you. This medicine is not expected to harm an unborn baby. However, taking clopidogrel within 1 week before childbirth can cause bleeding in the mother. Tell your doctor if you are or plan to become . You should not breastfeed while using this medicine. How should I take clopidogrel? Follow all directions on your prescription label and read all medication guides or instruction sheets. Use these medicines exactly as directed. Clopidogrel can be taken with or without food. Clopidogrel is sometimes taken together with aspirin. Take aspirin only if your doctor tells you to. Clopidogrel keeps your blood from coagulating (clotting) and can make it easier for you to bleed, even from a minor injury. Contact your doctor or seek emergency medical attention if you have any bleeding that will not stop. (more content not included)... [facility] Talisha [id number] Note Date of Service 03/25/23 Subjective Pt has had some improvement in pain to lower extremities. Pt has no complaints today. Objective Vitals and Measurements T: 36.7 C (Oral) HR: 52 RR: 18 BP: 151/56 SpO2: 98% Intake and Output 7AM Yesterday to 7AM Today Intake and Output (Last 24 hours) Intake Oral Intake 220.00 Output Urine Count 3.00 Total Summary Total Intake 220.00 Total Output 0.00 Fluid Balance 220.00 Physical Exam GEN: Appears chronically ill CHEST: Normal S1 and S2. Rhythm is regular. Clear to auscultation, without rales, rhonchi, wheezing. ABD: Positive bowel sounds x 4 quads. Soft, nondistended, nontender. EXT: No significant deformity or joint abnormality. No edema. Peripheral pulses intact. NEURO: Sensation grossly intact SKIN: Skin color normal PSYCH: The mental examination revealed the patient was alert and oriented x 4 Weight Current Weight Dosing Weight: 63.1 kg (03/14/23) Current Weight: 65.1 kg (03/23/23) Current Weight: 63.7 kg (03/16/23) Medications Medications (21) Active Scheduled: (13) acetaminophen 500 mg Tablet 1,000 mg 2 tab(s), Oral, TID aspirin 81 mg Chewable 81 mg 1 tab(s), Oral, Daily atorvastatin 40 mg tablet 80 mg 2 tab(s), Oral, qDay bisoprolol 5 mg tablet 5 mg 1 tab(s), Oral, qDay clopidogrel 75 mg Tablet 75 mg 1 tab(s), Oral, qDay ezetimibe 10 mg tablet 10 mg 1 tab(s), Oral, qDay gabapentin 100 mg Capsule 100 mg 1 cap(s), Oral, TID insulin glargine 100 units/ml solution 15 unit(s) 0.15 mL, Subcutaneous, qHS insulin lispro 100 units/mL Soln (3 mL) 5 unit(s) 0.05 mL, Subcutaneous, TIDM insulin lispro 100 units/mL Soln (3 mL) Give 0-5 units/dose, Subcutaneous, achs lisinopril 5 mg tablet 5 mg 1 tab(s), Oral, qDay nifedipine 30 mg ER (Adalat) tablet 30 mg 1 tab(s), Oral, qDay pantoprazole 20 mg EC tablet 40 mg 2 tab(s), Oral, qDayAC Continuous: (0) PRN: (8) acetaminophen 325 mg Tablet 650 mg 2 tab(s), Oral, q4h acetaminophen 325 mg Tablet 650 mg 2 tab(s), Oral, q4h Al hydrox/Mg hydrox/simethicone 200-200-20 mg/5 mL Susp UD 15 mL, Oral, q4h docusate sodium 100 mg Capsule 100 mg 1 cap(s), Oral, BID guaifenesin 100 mg/5 mL Liquid SUGAR-FREE 120 mL 200 mg 10 mL, Oral, q4h melatonin 3 mg tablet 6 mg 2 tab(s), Oral, qHS menthol (Biofreeze) gel packet 1 ricco, Topical, TID polyethylene glycol 3350 - UD packet 17 gram(s) 15 mL, Oral, BID Assessment/Plan 1. Asthenia 2. CVA (cerebrovascular accident) 3. Type 2 diabetes mellitus with hyperlipidemia Asthenia continue PT and OT. Patient is progressing. Some improvement in pain with tylenol. CVA Continue DAPT for 21 days and then stop aspirin after 12/16 dose. Continue high intensity statin daily. Patient to follow[facility]up with [facility] 4[facility]6 weeks. Cardionet monitor ordered for 30 days. 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 Continue gabapentin 100 mg PO TID. Continue OT. Type 2 diabetes mellitus- Glucose goal 180 or less and avoid hypoglycemia. corrective sliding scaleinsulin. ADA diet. Code Status: DNR CCA/DNI Plan of care discussed with patient. All questions answered. Patient verbalizes understanding is agreeable to plan of care. This dictation was performed using voice recognition software and may include grammatical and/or spelling errors. CPT: 95383 Time Spent 20 minutes Digitally Signed by MOHIT JOHNS on 03/25/2023 01:54 PM [facility]12-10-2023 Note Date of Service 03/15/2023 Chief Complaint weakness History of Present Illness Patient is an 87-year-old female, who follows with Mey Maddox CNP with a past medical history significant for type 2 diabetes, hypertension, stage 3a chronic kidney disease, CVA, and brachial neuritis, presented initially to [facility] emergency department on 03/10/2023 with complaint of worsening right upper extremity numbness and tingling, ataxia and dizziness. Because patient presented on the weekend and MRI was not available, patient was transferred to [facility] for neurology consultation and MRI of the brain. She reportedly had a stroke in April of 2021 (punctate left basal ganglia stroke) and had some residual left-sided facial droop and expressive aphasia. She was last known well on 03/09 at around 9 pm. When she woke the morning of 03/10, she immediately fell to the floor and was brought to the ED via EMS. A CT of the head without contrast was done in the [facility] ED and showed no acute pathology. Patient has a severe allergy to IV contrast and was, therefore, no sent for CTA of the head and neck. She was transferred that [facility] to [facility] and seen by neurology. MRA of the brain showed no large vessel occlusion. MRI of the neck demonstrated left vertebral artery dominance but both vertebral arteries patent. Questionable mild stenosis ofthe proximal left ICA (already known). MRI of the brain demonstrated an acute left thalamic lacunarinfarct. Echo demonstrates EF 60-65% with normal wall motion, mild AV stenosis. HgbA1c 9.6. Patientfollowed by neurology who recommended DAPT for 21 days and then continue Plavix 75 mg PO daily. Continue atorvastatin 80 mg PO daily. Order also placed for Cardionet monitor for 30 days after discharge. Patient also diagnosed and treated for a UTI with Ceftriaxone IV as an inpatient. Patient was also seen by PT and OT who recommended skilled stay. Patient was transferred to [facility]. Introduced self and role of hospitalist NETWORK ADMIN in her swing program stay. Patient denies any fever, chills, cough, shortness of breath, chest pain, abdominal pain, nausea or dysuria. All questions answered. Review of Systems Review of Systems: Reviewed in detail, including general health, HEENT, cardiovascular, respiratory, gastrointestinal, genitourinary, endocrine, musculoskeletal, neurologic, vascular, skin, and psychiatric. All are negative except for those listed in the History of Present Illness. Physical Exam Vitals and Measurements T: 36.7 C (Oral) TMIN: 36.5 C (Oral) TMAX: 36.7 C (Oral) HR: 74(Apical) RR: 18 BP: 118/48 SpO2: 99%HT: 162.6 cm WT: 63.1 kg BMI: 23.87 Weight Dosing Weight: 63.1 kg (03/14/23) General: No acute distress. Patient is alert and appropriate. Skin: No rash. Skin is warm, dry and intact. HEENT: Head is normocephalic, atraumatic. Pupils are equal, round and reactive. Neck: Supple. No lymphadenopathy, thyromegaly. Lungs: Bilaterally clear but diminished without crepitation or wheeze. Unlabored. Heart: Heart is regular rhythm, S1, S2. No murmurs, gallops or rubs. Abdomen: Abdomen is soft, nontender. Bowels sounds present in all quadrants. Extremities: No clubbing, cyanosis, or edema. Peripheral pulses palpable. No calf tenderness. Neurological: Patient is awake and alert to person, place and time. Aphasia noted. Following simplecommands, moving all extremities. Lab Results No 36 Hour Lab Data Assessment/Plan 1. Weakness Acute, secondary to recent left lacunar infarct. Consult placed to PT and OT to evaluate and treat.rehab services aide following for discharge planning. 2. Type 2 diabetes mellitus with hyperlipidemia Chronic, uncontrolled. HgbA1c 9.6% on 03/10. Continue blood sugar checks before meals and at bedtime. Continue Novolog 5 units sc with meals. Continue Lantus 15 units sc qhs. Blood sugar goal of 180 or less and avoid hypoglycemia. Continue atorvastatin 80 mg PO qhs. 3. CVA (cerebrovascular accident) Acute, new onset. Continue DAPT for 21 days and then stop aspirin after 03/31 dose. Continue high intensity statin daily. [facility]. Cardionet monitor ordered for 30 days. 4. 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 Patient not currently on medication for this. Continue OT for strengthening of right arm. DVT prophylaxis with SCDs. Code status: Full Code. Labs, diagnostic test and progress notes reviewed as noted in HPI. Plan of care discussed with patient. All questions answered. Patient verbalizes understanding and is agreeable with plan of care. This case was discussed with collaborating physician, Dr. Jono Valles. 45 minutes spent reviewing past diagnostic tests, reviewing lab results, vital sign trends, medicalhistory, reviewing medications and ordering home medications, examining patient, collaborating withphysician, discussed plan of care with nursing, sr. social media & mobile manager and therapy, care conference with pa mendez/family, and documenting in chart. CPT#13544 Problem List/Past Medical History Ongoing Aortic atherosclerosis Atherosclerosis of coronary artery without angina pectoris BMI 26.0-26.9,adult Brachial neuritis Carotid stenosis Cervical lymphadenopathy Change in voice CKD stage 3 secondary to diabetes Constipation COVID-19 DDD (degenerative disc disease), lumbar Depression, major, in remission Diabetes mellitus with microalbuminuria Diabetic nephropathy Diabetic peripheral vascular disease Diverticulosis Dysarthria Edema Encounter for examination following treatment at hospital Encounter for removal of sutures Eustachian tube dysfunction Facial droop Foot drop, right Frequent falls GERD (gastroesophageal reflux disease) Globus sensation Hx of completed stroke Hypercholesterolemia Hypertension associated with type 2 diabetes mellitus 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 heart disease without CHF 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 nephropathy 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 Low back pain Lumbar spinal stenosis LVH (left ventricular hypertrophy) Microalbuminuria Need for hepatitis C screening test Neuropathy, diabetic Nocturnal leg cramps Non-tobacco user Osteoarthritis Overweight Peripheral neuropathy Peripheral vascular disease Right ear pain Right leg weakness Risk for falls Rosacea Sacral fracture Screening for osteoporosis Somatic dysfunction of cervical region Somatic dysfunction of lumbar region Somatic dysfunction of pelvic region Somatic dysfunction of rib region Somatic dysfunction of sacral region Somatic dysfunction of thoracic region Stage 3a chronic kidney disease (CKD) Syncope Thyroid nodule Type 2 diabetes mellitus with hyperlipidemia Uncontrolled type 2 diabetes mellitus with hyperglycemia, with long-term current use of insulin Vitiligo Historical No qualifying data Procedure/Surgical History Laminectomy and discectomy: 11/22/12 Cholecystectomy: 11/23/03 Appendectomy: 07/21/73 Laparotomy: 07/21/73 Hysterectomy Mastectomy of left breast Medications Home Medications (18) Active acetaminophen 650 mg = 2 tab(s), PRN, Oral, q6hr aspirin 81 mg oral tablet, chewable 81 mg = 1 tab(s), Oral, Daily atorvastatin 80 mg oral tablet 80 mg = 1 tab(s), Oral, qDay bisoprolol 5 mg oral tablet 5 mg = 1 tab(s), Oral, qDay cefdinir 300 mg oral capsule 300 mg = 1 cap(s), Oral, q12h DME MISCellaneous See Instructions ezetimibe 10 mg oral tablet 10 mg = 1 tab(s), Oral, qDay glucose 50% intravenous solution 12.5 gram(s) = 25 mL, PRN, IV Push, AsDirected HumaLOG KwikPen 100 units/mL injectable PEN 5 unit(s), Subcutaneous, TIDM hydrALAZINE 20 mg/mL injectable solution 10 mg = 0.5 mL, PRN, IV Push, q4h Lantus Solostar Pen 100 units/mL 3 mL Pen 15 unit(s), Subcutaneous, qHS lisinopril 5 mg oral tablet 5 mg = 1 tab(s), Oral, qDay melatonin 3 mg oral tablet 3 mg = 1 tab(s), PRN, Oral, qHS NIFEdipine 30 mg oral tablet, extended release 30 mg = 1 tab(s), Oral, qDay Plavix 75 mg oral tablet 75 mg = 1 tab(s), Oral, qDay Protonix 40 mg oral enteric coated tablet 40 mg = 1 tab(s), Oral, qDayAC Tylenol 650 mg = 1 supp, PRN, Rectal, q4h Tylenol 325 mg oral capsule 650 mg, PRN, Oral, q4h Allergies Crestor (Myalgia) Demerol HCl (SEVERE N/V) Epinephrine (SEVERE SHAKING) Iodine (HIVES) Social History Smoking Status - 03/20/2017 Never smoker Alcohol - Denies Alcohol Use, 03/20/2017 Use: Never., 12/10/2018 Home/Environment Living situation: Home/Independent. Primary Web Offset Press Feeder: self, 2 sons are in the area and check on them. 2 daughters are out of state. Lives In: Multilevel home, 1st floor bedroom, 2nd floor bedroom. Current Home Treatments Blood Glucose monitoring. Spouse Name: Rush., 03/14/2023 OTher risks in environment: no current smoke exposure., 12/10/2018 Nutrition/Health Caffeine intake amount: 3 servings daily., 06/21/2021 Substance Abuse - Denies Substance Abuse, 03/20/2017 Use: Never., 12/10/2018 Tobacco Tobacco Use: Never (less than 100 in lifetime)., 12/10/2018 Family History Cancer: Mother and Father. Diabetes mellitus: Mother and Sister. Heart disease: Mother and Father. Immunizations SARS-CoV-2 (COVID-19) Ad26 vaccine: 0.5 unknown unit (04/05/21) SARS-CoV-2 (COVID-19) Ad26 vaccine: 0.5 unknown unit (10/07/20) tetanus/diphth/pertuss (Tdap) adult/adol: 0.5 mL (12/27/22) Code Status Code Status - Ordered -- 03/14/23 18:21:00 EST, Full Code, Constant Order Digitally Signed by ARYA FERNANDEZ on 03/15/2023 02:12 PM [facility]12-07-2023 Note Date of Service 03/22/2023 Subjective Has been complaining of bilateral lower extremity pain. She has been refusing any interventions. Therapy reports that this is limiting her progress and did encourage her to take Tylenol today prior to therapy. Otherwise she has no complaints. Objective Vitals and Measurements T: 36.8 C (Oral) TMIN: 36.5 C (Oral) TMAX: 36.8 C (Oral) HR: 50(Apical) RR: 16 BP: 140/66 SpO2: 99% Intake and Output 7AM Yesterday to 7AM Today Intake and Output (Last 24 hours) Intake Oral Intake 400.00 Output Stool Count 1.00 Urine Count 1.00 Total Summary Total Intake 400.00 Total Output 0.00 Fluid Balance 400.00 Physical Exam GEN: Appears chronically ill CHEST: Normal S1 and S2. Rhythm is regular. Clear to auscultation, without rales, rhonchi, wheezing. ABD: Positive bowel sounds x 4 quads. Soft, nondistended, nontender. EXT: No significant deformity or joint abnormality. No edema. Peripheral pulses intact. NEURO: Sensation grossly intact SKIN: Skin color normal PSYCH: The mental examination revealed the patient was alert and oriented x 4 Weight Current Weight Dosing Weight: 63.1 kg (03/14/23) Current Weight: 63.7 kg (03/16/23) Medications Medications (21) Active Scheduled: (13) acetaminophen 500 mg Tablet 1,000 mg 2 tab(s), Oral, TID aspirin 81 mg Chewable 81 mg 1 tab(s), Oral, Daily atorvastatin 40 mg tablet 80 mg 2 tab(s), Oral, qDay bisoprolol 5 mg tablet 5 mg 1 tab(s), Oral, qDay clopidogrel 75 mg Tablet 75 mg 1 tab(s), Oral, qDay ezetimibe 10 mg tablet 10 mg 1 tab(s), Oral, qDay gabapentin 100 mg Capsule 100 mg 1 cap(s), Oral, TID insulin glargine 100 units/ml solution 15 unit(s) 0.15 mL, Subcutaneous, qHS insulin lispro 100 units/mL Soln (3 mL) 5 unit(s) 0.05 mL, Subcutaneous, TIDM insulin lispro 100 units/mL Soln (3 mL) Give 0-5 units/dose, Subcutaneous, achs lisinopril 5 mg tablet 5 mg 1 tab(s), Oral, qDay nifedipine 30 mg ER (Adalat) tablet 30 mg 1 tab(s), Oral, qDay pantoprazole 20 mg EC tablet 40 mg 2 tab(s), Oral, qDayAC Continuous: (0) PRN: (8) acetaminophen 325 mg Tablet 650 mg 2 tab(s), Oral, q4h acetaminophen 325 mg Tablet 650 mg 2 tab(s), Oral, q4h Al hydrox/Mg hydrox/simethicone 200-200-20 mg/5 mL Susp UD 15 mL, Oral, q4h docusate sodium 100 mg Capsule 100 mg 1 cap(s), Oral, BID guaifenesin 100 mg/5 mL Liquid SUGAR-FREE 120 mL 200 mg 10 mL, Oral, q4h melatonin 3 mg tablet 6 mg 2 tab(s), Oral, qHS menthol (Biofreeze) gel packet 1 ricco, Topical, TID polyethylene glycol 3350 - UD packet 17 gram(s) 15 mL, Oral, BID Assessment/Plan 1. Asthenia 2. CVA (cerebrovascular accident) 3. Type 2 diabetes mellitus with hyperlipidemia Asthenia continue PT and OT. Patient is progressing. She does have bilateral lower extremity pain and does not like to take medications. During care conference we discussed how this is potentially limiting her progress in therapy. Patient was then agreeable to take scheduled Tylenol short-term. Start Tylenol 1000 mg 3 times daily. CVA Continue DAPT for 21 days and then stop aspirin after 12/16 dose. Continue high intensity statin daily. [facility]. Cardionet monitor ordered for 30 days. 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 Continue gabapentin 100 mg PO TID. Will follow-up to see if improvement with this. Continue OT for strengthening of right arm Type 2 diabetes mellitus- Glucose goal 180 or less and avoid hypoglycemia. corrective sliding scaleinsulin. ADA diet. Code Status: DNR CCA/DNI Plan of care discussed with patient. All questions answered. Patient verbalizes understanding is agreeable to plan of care. This dictation was performed using voice recognition software and may include grammatical and/or spelling errors. CPT: 10965 Digitally Signed by MOHIT JOHNS on 03/22/2023 05:06 PM [facility]12-04-2023 Note Date of Service 03/19/2023 Chief Complaint right arm numbness Subjective Patient seen and evaluated this morning while resting in bed. She states that she has no pain currently in her right arm but it does continue to be numb. She tried holding a dish with it over the weekend and ended up dropping the dish on the floor. Patient advised that that is exactly why she is here - for us to strengthen her. Nursing concerned over the weekend that patient is depressed and wondered if patient should be started on medication for this. Discussed this with the patient. She states she started crying for no reason yesterday but she does not feel that she is depressed. She was advised that it does take 3-4 weeks to feel any effect from an antidepressant so there would be no immediate change if we started something. She also most likely has situational depression because she is here and trying to get back home to her previous level of function. Patient states she does not want to start medication right now for depression. Reassurance given that patient is making progress. She denies any fever, chills, cough, shortness of breath, chest pain, abdominal pain, nausea, constipation or dysuria. All questions. Objective Vitals and Measurements T: 36.7 C (Oral) TMIN: 36.7 C (Oral) TMAX: 36.9 C (Oral) HR: 62(Apical) RR: 16 BP: 159/61 SpO2: 98% Intake and Output 7AM Yesterday to 7AM Today Intake and Output (Last 24 hours) Intake Oral Intake 620.00 Output Urine Count 9.00 Total Summary Total Intake 620.00 Total Output 0.00 Fluid Balance 620.00 Physical Exam General: No acute distress. Patient is alert, chronically ill-appearing. Skin: No rash. Skin is warm, dry and intact. HEENT: Head is normocephalic, atraumatic. Pupils are equal, round and reactive. Neck: Supple. No lymphadenopathy, thyromegaly. Lungs: Bilaterally clear but diminished without crepitation or wheeze. Unlabored. Heart: Heart is regular rhythm, S1, S2. No murmurs, gallops or rubs. Abdomen: Abdomen is soft, nontender. Bowels sounds present in all quadrants. Extremities: No clubbing, cyanosis, or edema. Peripheral pulses palpable. No calf tenderness. Neurological: Patient is awake and alert to person, place and time. Following simple commands, moving all extremities. Weight Current Weight Dosing Weight: 63.1 kg (03/14/23) Current Weight: 63.7 kg (03/16/23) Medications Medications (20) Active Scheduled: (12) aspirin 81 mg Chewable 81 mg 1 tab(s), Oral, Daily atorvastatin 40 mg tablet 80 mg 2 tab(s), Oral, qDay bisoprolol 5 mg tablet 5 mg 1 tab(s), Oral, qDay clopidogrel 75 mg Tablet 75 mg 1 tab(s), Oral, qDay ezetimibe 10 mg tablet 10 mg 1 tab(s), Oral, qDay gabapentin 100 mg Capsule 100 mg 1 cap(s), Oral, TID insulin glargine 100 units/ml solution 15 unit(s) 0.15 mL, Subcutaneous, qHS insulin lispro 100 units/mL Soln (3 mL) 5 unit(s) 0.05 mL, Subcutaneous, TIDM insulin lispro 100 units/mL Soln (3 mL) Give 0-5 units/dose, Subcutaneous, achs lisinopril 5 mg tablet 5 mg 1 tab(s), Oral, qDay nifedipine 30 mg ER (Adalat) tablet 30 mg 1 tab(s), Oral, qDay pantoprazole 20 mg EC tablet 40 mg 2 tab(s), Oral, qDayAC Continuous: (0) PRN: (8) acetaminophen 325 mg Tablet 650 mg 2 tab(s), Oral, q4h acetaminophen 325 mg Tablet 650 mg 2 tab(s), Oral, q4h Al hydrox/Mg hydrox/simethicone 200-200-20 mg/5 mL Susp UD 15 mL, Oral, q4h docusate sodium 100 mg Capsule 100 mg 1 cap(s), Oral, BID guaifenesin 100 mg/5 mL Liquid SUGAR-FREE 120 mL 200 mg 10 mL, Oral, q4h melatonin 3 mg tablet 6 mg 2 tab(s), Oral, qHS menthol (Biofreeze) gel packet 1 ricco, Topical, TID polyethylene glycol 3350 - UD packet 17 gram(s) 15 mL, Oral, BID Lab Results No 36 Hour Lab Data Assessment/Plan 1. Weakness Acute, secondary to recent left lacunar infarct. Consult placed to PT and OT to evaluate and treat.rehab services aide following for discharge planning. 2. Type 2 diabetes mellitus with hyperlipidemia Chronic, uncontrolled. HgbA1c 9.6% on 03/10. Continue blood sugar checks before meals and at bedtime. Continue Novolog 5 units sc with meals. Continue corrective sliding scale insulin. Continue Lantus 15 units sc qhs. Blood sugar goal of 180 or less and avoid hypoglycemia. Continue atorvastatin 80 mg PO qhs. 3. CVA (cerebrovascular accident) Continue DAPT for 21 days and then stop aspirin after 12 dose. Continue high intensity statin daily. [facility]. Cardionet monitor ordered for 30 days. 4. 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 Continue gabapentin 100 mg PO TID. Will follow-up to see if improvement with this. Continue OT for strengthening of right arm. Patient states that she has no pain in her right arm but continues to complain of numbness and being unable to grasp objects for long. Continue OT. depression - likely situational and/or seasonal. Patient does not want to start an antidepressant at this time. Patient advised to let this provider know if she changes her mind. DVT prophylaxis with SCDs, ambulation. Code status: DNRCCA - do not intubate. Labs, diagnostic test and progress notes reviewed as noted in HPI. Plan of care discussed with patient. All questions answered. Patient verbalizes understanding and is agreeable with plan of care. This case was discussed with collaborating physician, Dr. Jono Valles. Time Spent 35 minutes spent reviewing past diagnostic tests, reviewing lab results, vital sign trends, medicalhistory, reviewing medications and ordering home medications, examining patient, collaborating withphysician, and documenting in chart. CPT#12696 Digitally Signed by ARYA FERNANDEZ on 03/19/2023 11:55 AM [facility]11-30-2023 Note. MICRO - Microbiology PROCEDURE: Blood Culture (bacterial) [*1] SOURCE: Blood BODY SITE: COLLECTED DATE/TIME: 03/10/2023 20:10 EST RECEIVED DATE/TIME: 03/10/2023 20:38 EST START DATE/TIME: 03/10/2023 20:38 EST FREE TEXT SOURCE: FINAL REPORTS Final Report [] Verified Date/Time/Personnel: 03/15/2023 20:59 EST Blood Culture: No Growth at 5 days. PRELIMINARY REPORTS Preliminary Report [] Verified Date/Time/Personnel: 03/10/2023 21:59 EST Culture has been received in lab and is no growth to date. Routine cultures are held for 5 days. Performing Locations *1: This test was performed at: [address]03-15-2023 Note. MICRO - Microbiology PROCEDURE: Blood Culture (bacterial) [*1] SOURCE: Blood BODY SITE: COLLECTED DATE/TIME: 03/10/2023 20:10 EST RECEIVED DATE/TIME: 03/10/2023 20:38 EST START DATE/TIME: 03/10/2023 20:38 EST FREE TEXT SOURCE: FINAL REPORTS Final Report [] Verified Date/Time/Personnel: 03/15/2023 20:59 EST Blood Culture: No Growth at 5 days. PRELIMINARY REPORTS Preliminary Report [] Verified Date/Time/Personnel: 03/10/2023 21:59 EST Culture has been received in lab and is no growth to date. Routine cultures are held for 5 days. Performing Locations *1: This test was performed at: [address], [address] [place], [place] [address]-15-2023 Evaluation + Plan noteExtracted from: Title:History and Physical Author:REBECCA ARYAIsidro Osuna APRN-CALL OUT CLERK Date:03/15/23 1. Weakness Acute, secondary to recent left lacunar infarct. Consult placed to PT and OT to evaluate and treat. rehab services aide following for discharge planning. 2. Type 2 diabetes mellitus with hyperlipidemia Chronic, uncontrolled. HgbA1c 9.6% on 03/10. Continue blood sugar checks before meals and at bedtime. Continue Novolog 5 units sc with meals. Continue Lantus 15 units sc qhs. Blood sugar goal of 180 or less and avoid hypoglycemia. Continue atorvastatin 80 mg PO qhs. 3. CVA (cerebrovascular accident) Acute, new onset. Continue DAPT for 21 days and then stop aspirin after 12 dose. Continue high intensity statin daily. [facility]. Cardionet monitor ordered for 30 days. 4. 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 Patient not currently on medication for this. Continue OT for strengthening of right arm. DVT prophylaxis with SCDs. Code status: Full Code. Labs, diagnostic test and progress notes reviewed as noted in HPI. Plan of care discussed with patient. All questions answered. Patient verbalizes understanding and is agreeable with plan of care. This case was discussed with collaborating physician, Dr. Jono Valles. 45 minutes spent reviewing past diagnostic tests, reviewing lab results, vital sign trends, medical history, reviewing medications and ordering home medications, examining patient, collaborating with physician, discussed plan of care with nursing, sr. social media & mobile manager and therapy, care conference with patient/family, and documenting in chart. CPT#76043 Addendum by JONO VALLES MD on March 25, 2023 09:12:23 EST Encounter was completed as a tele-consult over the phone. Care was discussed with collaborating JOB SERVICE CONSULTANT Future Appointments Appointment Date:04/02/2023 12:30:00 PM Scheduled Provider:MEY MADDOX APRN-CALL OUT CLERK Location:[facility] Appointment Type:[facility] Hospital Follow-Up Future Scheduled Tests Laboratory* Thyroid Stimulating Hormone 04/04/22 * A1C Hemoglobin 04/04/22 * Complete Blood Count 04/04/22 * Lipid Profile 04/04/22 * Hepatitis C Antibody IgG 04/04/22 * Microalbumin Level Urine 04/04/22 * Complete Metabolic Panel 04/04/22 Radiology* BD Bone Density DEXA Axial Skeleton 04/04/22 [facility] 11-30-2023 Note Date of Service 03/15/2023 Chief Complaint weakness History of Present Illness Patient is an 87-year-old female, who follows with Mey Maddox CNP with a past medical history significant for type 2 diabetes, hypertension, stage 3a chronic kidney disease, CVA, and brachial neuritis, presented initially to [facility] emergency department on 03/10/2023 with complaint of worsening right upper extremity numbness and tingling, ataxia and dizziness. Because patient presented on the weekend and MRI was not available, patient was transferred to [facility] for neurology consultation and MRI of the brain. She reportedly had a stroke in April of 2021 (punctate left basal ganglia stroke) and had some residual left-sided facial droop and expressive aphasia. She was last known well on 03/09 at around 9 pm. When she woke the morning of 03/10, she immediately fell to the floor and was brought to the ED via EMS. A CT of the head without contrast was done in the [facility] ED and showed no acute pathology. Patient has a severe allergy to IV contrast and was, therefore, no sent for CTA of the head and neck. She was transferred that [facility] and seen by neurology. MRA of the brain showed no large vessel occlusion. MRI of the neck demonstrated left vertebral artery dominance but both vertebral arteries patent. Questionable mild stenosis ofthe proximal left ICA (already known). MRI of the brain demonstrated an acute left thalamic lacunarinfarct. Echo demonstrates EF 60-65% with normal wall motion, mild AV stenosis. HgbA1c 9.6. Patientfollowed by neurology who recommended DAPT for 21 days and then continue Plavix 75 mg PO daily. Continue atorvastatin 80 mg PO daily. Order also placed for Cardionet monitor for 30 days after discharge. Patient also diagnosed and treated for a UTI with Ceftriaxone IV as an inpatient. Patient was also seen by PT and OT who recommended skilled stay. Patient was transferred to [facility]. Introduced self and role of hospitalist NETWORK ADMIN in her swing program stay. Patient denies any fever, chills, cough, shortness of breath, chest pain, abdominal pain, nausea or dysuria. All questions answered. Review of Systems Review of Systems: Reviewed in detail, including general health, HEENT, cardiovascular, respiratory, gastrointestinal, genitourinary, endocrine, musculoskeletal, neurologic, vascular, skin, and psychiatric. All are negative except for those listed in the History of Present Illness. Physical Exam Vitals and Measurements T: 36.7 C (Oral) TMIN: 36.5 C (Oral) TMAX: 36.7 C (Oral) HR: 74(Apical) RR: 18 BP: 118/48 SpO2: 99%HT: 162.6 cm WT: 63.1 kg BMI: 23.87 Weight Dosing Weight: 63.1 kg (03/14/23) General: No acute distress. Patient is alert and appropriate. Skin: No rash. Skin is warm, dry and intact. HEENT: Head is normocephalic, atraumatic. Pupils are equal, round and reactive. Neck: Supple. No lymphadenopathy, thyromegaly. Lungs: Bilaterally clear but diminished without crepitation or wheeze. Unlabored. Heart: Heart is regular rhythm, S1, S2. No murmurs, gallops or rubs. Abdomen: Abdomen is soft, nontender. Bowels sounds present in all quadrants. Extremities: No clubbing, cyanosis, or edema. Peripheral pulses palpable. No calf tenderness. Neurological: Patient is awake and alert to person, place and time. Aphasia noted. Following simple commands, moving all extremities. Lab Results No 36 Hour Lab Data Assessment/Plan 1. Weakness Acute, secondary to recent left lacunar infarct. Consult placed to PT and OT to evaluate and treat.rehab services aide following for discharge planning. 2. Type 2 diabetes mellitus with hyperlipidemia Chronic, uncontrolled. HgbA1c 9.6% on 03/10. Continue blood sugar checks before meals and at bedtime. Continue Novolog 5 units sc with meals. Continue Lantus 15 units sc qhs. Blood sugar goal of 180 or less and avoid hypoglycemia. Continue atorvastatin 80 mg PO qhs. 3. CVA (cerebrovascular accident) Acute, new onset. Continue DAPT for 21 days and then stop aspirin after 12/16 dose. Continue high intensity statin daily. [facility]. Cardionet monitor ordered for 30 days. 4. 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 Patient not currently on medication for this. Continue OT for strengthening of right arm. DVT prophylaxis with SCDs. Code status: Full Code. Labs, diagnostic test and progress notes reviewed as noted in HPI. Plan of care discussed with patient. All questions answered. Patient verbalizes understanding and is agreeable with plan of care. This case was discussed with collaborating physician, Dr. Jono Valles. 45 minutes spent reviewing past diagnostic tests, reviewing lab results, vital sign trends, medicalhistory, reviewing medications and ordering home medications, examining patient, collaborating withphysician, discussed plan of care with nursing, sr. social media & mobile manager and therapy, care conference with pa mendez/family, and documenting in chart. CPT#86461 Problem List/Past Medical History Ongoing Aortic atherosclerosis Atherosclerosis of coronary artery without angina pectoris BMI 26.0-26.9,adult Brachial neuritis Carotid stenosis Cervical lymphadenopathy Change in voice CKD stage 3 secondary to diabetes Constipation COVID-19 DDD (degenerative disc disease), lumbar Depression, major, in remission Diabetes mellitus with microalbuminuria Diabetic nephropathy Diabetic peripheral vascular disease Diverticulosis Dysarthria Edema Encounter for examination following treatment at hospital Encounter for removal of sutures Eustachian tube dysfunction Facial droop Foot drop, right Frequent falls GERD (gastroesophageal reflux disease) Globus sensation Hx of completed stroke Hypercholesterolemia Hypertension associated with type 2 diabetes mellitus 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 heart disease without CHF 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 nephropathy 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 Low back pain Lumbar spinal stenosis LVH (left ventricular hypertrophy) Microalbuminuria Need for hepatitis C screening test Neuropathy, diabetic Nocturnal leg cramps Non-tobacco user Osteoarthritis Overweight Peripheral neuropathy Peripheral vascular disease Right ear pain Right leg weakness Risk for falls Rosacea Sacral fracture Screening for osteoporosis Somatic dysfunction of cervical region Somatic dysfunction of lumbar region Somatic dysfunction of pelvic region Somatic dysfunction of rib region Somatic dysfunction of sacral region Somatic dysfunction of thoracic region Stage 3a chronic kidney disease (CKD) Syncope Thyroid nodule Type 2 diabetes mellitus with hyperlipidemia Uncontrolled type 2 diabetes mellitus with hyperglycemia, with long-term current use of insulin Vitiligo Historical No qualifying data Procedure/Surgical History Laminectomy and discectomy: 11/22/12 Cholecystectomy: 11/23/03 Appendectomy: 07/21/73 Laparotomy: 07/21/73 Hysterectomy Mastectomy of left breast Medications Home Medications (18) Active acetaminophen 650 mg = 2 tab(s), PRN, Oral, q6hr aspirin 81 mg oral tablet, chewable 81 mg = 1 tab(s), Oral, Daily atorvastatin 80 mg oral tablet 80 mg = 1 tab(s), Oral, qDay bisoprolol 5 mg oral tablet 5 mg = 1 tab(s), Oral, qDay cefdinir 300 mg oral capsule 300 mg = 1 cap(s), Oral, q12h DME MISCellaneous See Instructions ezetimibe 10 mg oral tablet 10 mg = 1 tab(s), Oral, qDay glucose 50% intravenous solution 12.5 gram(s) = 25 mL, PRN, IV Push, AsDirected HumaLOG KwikPen 100 units/mL injectable PEN 5 unit(s), Subcutaneous, TIDM hydrALAZINE 20 mg/mL injectable solution 10 mg = 0.5 mL, PRN, IV Push, q4h Lantus Solostar Pen 100 units/mL 3 mL Pen 15 unit(s), Subcutaneous, qHS lisinopril 5 mg oral tablet 5 mg = 1 tab(s), Oral, qDay melatonin 3 mg oral tablet 3 mg = 1 tab(s), PRN, Oral, qHS NIFEdipine 30 mg oral tablet, extended release 30 mg = 1 tab(s), Oral, qDay Plavix 75 mg oral tablet 75 mg = 1 tab(s), Oral, qDay Protonix 40 mg oral enteric coated tablet 40 mg = 1 tab(s), Oral, qDayAC Tylenol 650 mg = 1 supp, PRN, Rectal, q4h Tylenol 325 mg oral capsule 650 mg, PRN, Oral, q4h Allergies Crestor (Myalgia) Demerol HCl (SEVERE N/V) Epinephrine (SEVERE SHAKING) Iodine (HIVES) Social History Smoking Status - 03/20/2017 Never smoker Alcohol - Denies Alcohol Use, 03/20/2017 Use: Never., 12/10/2018 Home/Environment Living situation: Home/Independent. Primary Web Offset Press Feeder: self, 2 sons are in the area and check on them. 2 daughters are out of state. Lives In: Multilevel home, 1st floor bedroom, 2nd floor bedroom. Current Home Treatments Blood Glucose monitoring. Spouse Name: Rush., 03/14/2023 OTher risks in environment: no current smoke exposure., 12/10/2018 Nutrition/Health Caffeine intake amount: 3 servings daily., 06/21/2021 Substance Abuse - Denies Substance Abuse, 03/20/2017 Use: Never., 12/10/2018 Tobacco Tobacco Use: Never (less than 100 in lifetime)., 12/10/2018 Family History Cancer: Mother and Father. Diabetes mellitus: Mother and Sister. Heart disease: Mother and Father. Immunizations SARS-CoV-2 (COVID-19) Ad26 vaccine: 0.5 unknown unit (04/05/21) SARS-CoV-2 (COVID-19) Ad26 vaccine: 0.5 unknown unit (10/07/20) tetanus/diphth/pertuss (Tdap) adult/adol: 0.5 mL (12/27/22) Code Status Code Status - Ordered -- 03/14/23 18:21:00 EST, Full Code, Constant Order Digitally Signed by ARYA FERNANDEZ on 03/15/2023 02:12 PM [facility]2023 Hospital Discharge instructions Patient Education 03/14/2023 15:43:37 Diabetes Basics Diabetes Basics Diabetes (diabetes mellitus) is a long-term (chronic) disease. It occurs when the body does not properly use sugar (glucose) that is released from food after you eat. Diabetes may be caused by one or both of these problems: Your pancreas does not make enough of a hormone called insulin. Your body does not react in a normal way to insulin that it makes. Insulin lets sugars (glucose) go into cells in your body. This gives you energy. If you have diabetes, sugars cannot get into cells. This causes high blood sugar (hyperglycemia). Follow these instructions at home: How is diabetes treated? You may need to take insulin or other diabetes medicines daily to keep your blood sugar in balance.Take your diabetes medicines every day as told by your doctor. List your diabetes medicines here: Diabetes medicines Name of medicine: ?Amount (dose): Time (a.m./p.m.): Notes: Name of medicine: ?Amount (dose): Time (a.m./p.m.): Notes: Name of medicine: ?Amount (dose): Time (a.m./p.m.): Notes: If you use insulin, you will learn how to give yourself insulin by injection. You may need to adjust the amount based on the food that you eat. List the types of insulin you use here: Insulin Insulin type: ?Amount (dose): Time (a.m./p.m.): Notes: Insulin type: ?Amount (dose): Time (a.m./p.m.): Notes: Insulin type: ?Amount (dose): Time (a.m./p.m.): Notes: Insulin type: ?Amount (dose): Time (a.m./p.m.): Notes: Insulin type: ?Amount (dose): Time (a.m./p.m.): Notes: How do I manage my blood sugar? Check your blood sugar levels using a blood glucose monitor as directed by your doctor. Your doctor will set treatment goals for you. Generally, you should have these blood sugar levels: Before meals (preprandial): 80 130 mg/dL (4.4 7.2 mmol/L). After meals (postprandial): below 180 mg/dL (10 mmol/L). A1c level: less than 7%. Write down the times that you will check your blood sugar levels: Blood sugar checks Time: Notes: Time: Notes: Time: Notes: Time: Notes: Time: Notes: Time: Notes: What do I need to know about low blood sugar? Low blood sugar is called hypoglycemia. This is when blood sugar is at or below 70 mg/dL (3.9 mmol/L). Symptoms may include: Feeling: ?Hungry. ?Worried or nervous (anxious). ?Sweaty and clammy. ?Confused. ?Dizzy. ?Sleepy. ?Sick to your stomach (nauseous). Having: ?A fast heartbeat. ?A headache. ?A change in your vision. ?Tingling or no feeling (numbness) around the mouth, lips, or tongue. ?Jerky movements that you cannot control (seizure). Having trouble with: ?Moving (coordination). ?Sleeping. ?Passing out (fainting). ?Getting upset easily (irritability). Treating low blood sugar To treat low blood sugar, eat or drink something sugary right away. If you can think clearly and swallow safely, follow the 15:15 rule: Take 15 grams of a fast-acting carb (carbohydrate). Talk with your doctor about how much you shouldtake. Some fast-acting carbs are: ?Sugar tablets (glucose pills). Take 3 4 glucose pills. ?6 8 pieces of hard candy. ?4 6 oz (120 150 mL) of fruit juice. ?4 6 oz (120 150 mL) of regular (not diet) soda. ?1 Tbsp (15 mL) honey or sugar. Check your blood sugar 15 minutes after you take the carb. If your blood sugar is still at or below 70 mg/dL (3.9 mmol/L), take 15 grams of a carb again. If your blood sugar does not go above 70 mg/dL (3.9 mmol/L) after 3 tries, get help right away. After your blood sugar goes back to normal, eat a meal or a snack within 1 hour. Treating very low blood sugar If your blood sugar is at or below 54 mg/dL (3 mmol/L), you have very low blood sugar (severe hypoglycemia). This is an emergency. Do not wait to see if the symptoms will go away. Get medical help right away. Call your local emergency services (911 in the [place] Do not drive yourself to the hospital. Questions to ask your health care provider Do I need to meet with a wellness educator? What equipment will I need to care for myself at home? What diabetes medicines do I need? When should I take them? How often do I need to check my blood sugar? What number can I call if I have questions? When is my next doctor's visit? Where can I find a support group for people with diabetes? Where to find more information [place] [employer]: www.diabetes.org [place] [employer] Educators: www.diabeteseducator.org/patient-resources Contact a doctor if: Your blood sugar is at or above 240 mg/dL (13.3 mmol/L) for 2 days in a row. You have been sick or have had a fever for 2 days or more, and you are not getting better. You have any of these problems for more than 6 hours: ?You cannot eat or drink. ?You feel sick to your stomach (nauseous). ?You throw up (vomit). ?You have watery poop (diarrhea). Get help right away if: Your blood sugar is lower than 54 mg/dL (3 mmol/L). You get confused. You have trouble: ?Thinking clearly. ?Breathing. Summary Diabetes (diabetes mellitus) is a long-term (chronic) disease. It occurs when the body does not properly use sugar (glucose) that is released from food after digestion. Take insulin and diabetes medicines as told. Check your blood sugar every day, as often as told. Keep all follow-up visits as told by your doctor. This is important. This information is not intended to replace advice given to you by your health care provider. Make sure you discuss any questions you have with your health care provider. Document Released: 07/05/2018 Document Revised: 05/23/2019 Document Reviewed: 07/05/2018 [email or web address] Patient Education 2020 [employer]. Follow Up Care 03/10/2023 14:02:02 With:[facility], Address:Unknown When:1-2 days Comments:Room 239 [facility] Address: When:Within 3 Week(s) Comments:[facility] [address] [place] [address] or main With:MEY MADDOX Address: [address] [place] [address] [place] [address]- When:3-7 days Comments:Please call the office within 2 days to schedule a follow-up appointment. [facility] 2023 Note Discharge Instructions Thank you for allowing [facility] to assist you with your healthcare needs. The following is importantdischarge information regarding your hospital visit. Your Care Team MEY MADDOX Your Diagnosis Diabetes Stroke What to do next Instructions From Your Doctor You had a stroke. Start taking plavix 75 daily and aspirin 81 daily. After 21 days take only plavix. We have given you a heart monitor to wear for 30 days. Please follow[facility] with [facility] I was unable to find records of your insulin. Therefore I prescribed insulin for you. If you have insulin at home, feel free to resume your original regimen. We have added ezetimibe for your cholesterol. Continue to follow with your primary care provider. Follow Up Appointments Follow Up with [facility] Bed, When Within 1-2 days Why: Room 239 [facility] When In 3 weeks Why: [facility] [address] [place] [address] or Main Where: Follow Up with MEY MADDOX When Within 3-7 days Why: Please call the office within 2 days to schedule a follow-up appointment. [facility] [place] [address]- The Following Activity and Diet Have Been Ordered for You Transfer of Care Activity - Ordered -- Activity As Tolerated, 03/14/23 15:10:00 EST Transfer of Care Diet - Ordered -- Type of Diet: Regular Diet, 03/14/23 15:10:00 EST The Following Equipment Has Been Ordered for You No qualifying data available. The Following Treatments Have Been Ordered for You Discharge Labs Transfer of Care Labwork - Ordered -- BMP, monitor on lisinopril, follow-up within: 1 week, Results Notify to: MEY MADDOX, 03/14/23 15:10:00 EST Discharge Radiology No qualifying data available. Other Therapies Discharge Event Monitor Instructions - Ordered -- 03/14/23 15:10:50 EST, You have been ordered mobile outpatient telemetry. You should receive a device in the mail with further instructions. If you have not received a device within 7 days after discharge, please call [facility] at [phone]. Transfer of Care OT - Ordered -- Reason for therapy: Stroke, 03/14/23 15:10:00 EST Transfer of Care PT - Ordered -- Reason for therapy: Stroke, 03/14/23 15:10:00 EST Post Acute Orders Transfer of Care Code Status - Ordered -- DNRCC-Arrest Do Not Intubate, Constant Order Transfer of Care Labwork - Ordered -- BMP, monitor on lisinopril, follow-up within: 1 week, Results Notify to: MEY MADDOX APRN-CALL OUT CLERK, 03/14/23 15:10:00 EST Transfer of Care Orders Electronically Signed By - Ordered -- 03/14/23 15:10:00 EST, DANIEL MONTIEL DO Transfer of Care Prognosis - Ordered -- Angel, Patient Aware: Yes Transfer of Care Rehab Potential - Ordered -- Rehab potential angel, 03/14/23 15:10:22 EST Someone Will Contact You Regarding These Home Health Referrals No home referrals have been ordered for you. No one will call you. Allergies Crestor (Myalgia) Demerol HCl (SEVERE N/V) Epinephrine (SEVERE SHAKING) Iodine (HIVES) Medications Please ask your primary doctor or pharmacist before taking any other medication not listed, including over the counter drugs, herbal medications, vitamins and or supplements as they may interact withyour home medications. What How Much When Why Instructions Last Dose New acetaminophen 650 Milligram by mouth Every 6 hours as needed for Pain, scale 1-10 New acetaminophen (Tylenol 325 mg oral capsule) 650 Milligram by mouth Every 4 hours as needed for Temperature greater than 38.5 degrees C New acetaminophen (Tylenol) 650 Milligram in the rectum Every 4 hours as needed for Temperature greater than 38.5 degrees C New cefdinir (cefdinir 300 mg oral capsule) 1 cap by mouth Every 12 hours Duration: 1 Days Pickup at [facility] #[id number] New clopidogrel (Plavix 75 mg oral tablet) 1 tab(s) by mouth Once a day Duration: 30 Days Refills: 1 Pickup at [id number] New ezetimibe (ezetimibe 10 mg oral tablet) 1 tab(s) by mouth Once a day Pickup at [facility] #[id number] New glucose (glucose 50% intravenous solution) 25 Milliliter IV Push As Directed as needed for Hypoglycemia New hydrALAZINE (hydrALAZINE 20 mg/ mL injectable solution) 0.5 Milliliter IV Push Every 4 hours as needed for Blood pressure control New insulin glargine (Lantus Solostar Pen 100 units/ mL 3 mL Pen) 15 unit(s) Subcutaneous Daily at bedtime Diabetes Pickup at [facility] #[id number] New insulin lispro (HumaLOG) (HumaLOG KwikPen 100 units/ mL injectable PEN) 5 unit(s) Subcutaneous Three (3) times a day with meals Diabetes Duration: 30 Days Hold if you eat less than 50% of your meal Pickup at [facility] #[id number] New melatonin (melatonin 3 mg oral tablet) 1 tab(s) by mouth Daily at bedtime as needed for Sleep New NIFEdipine (NIFEdipine 30 mg oral tablet, extended release) 1 tab(s) by mouth Once a day Duration: 30 Days please discontinue prescription for nifedipine 60. Decreased to 30 to allow for CANDI in addition given diabetes Pickup at [facility] #[id number] New pantoprazole (Protonix 40 mg oral enteric coated tablet) 1 tab(s) by mouth Once a day before a meal Duration: 30 Days Pickup at [facility] #[id number] Changed DME (DME MISCellaneous) See instructions Diabetes Pen needles, enough for 4 injections daily x 30 days. Any 4/ 5 mm pen needle in stock and covered by insurance is appropriate Pickup at [facility] #[id number] Changed lisinopril (lisinopril 5 mg oral tablet) 1 tab(s) by mouth Once a day Duration: 30 Days Pickup at [facility] #[id number] Unchanged aspirin (aspirin 81 mg oral tablet, chewable) 1 tab(s) by mouth Every day Duration: 90 Days Unchanged atorvastatin (atorvastatin 80 mg oral tablet) 1 tab(s) by mouth Once a day Duration: 90 Days Unchanged bisoprolol (bisoprolol 5 mg oral tablet) 1 tab(s) by mouth Once a day Pharmacy Information [facility] #[id number]: [address], [place] [id number] [phone] What How Much When Comments Stop Taking ascorbic acid (Vitamin C 500 mg oral tablet) 1 tab(s) by mouth Once a day Stop Taking cholecalciferol (Vitamin D3 125 mcg (5000 intl units) oral capsule) 1 cap by mouth Once a day Stop Taking glucagon (Gvoke HypoPen One Pack 0.5 mg/ 0.1 mL subcutaneous solution) 0.1 Milliliter Subcutaneous As Directed as needed for for low blood sugar Stop Taking insulin aspart-insulin aspart protamine (Novolog Mix 70/ 30) (NovoLOG Mix 70/ 30 FlexPen 3 mL Pen) 14 unit(s) Subcutaneous Two (2) times a day sliding scale up to 14 units BID IF BGT <150 no insulin BGT 150-200 take 4 units BGT 201-250 take 6 units BGT 251-300 take 8 units BGT 301-350 take 10 units BGT 351-400 take 12 units BGT 401 or higher take 14 units Stop Taking vitamin E (vitamin E 400 intl units oral capsule) 1 cap by mouth Every day Stop Taking zinc citrate (zinc citrate 50 mg oral capsule) Please take this list to your next doctor s visit. Bring all medications you take, including over the counter medications, herbals and other supplements with you to your doctor s visit. Patients and families are reminded to discard old lists and to update any records with all medication providers or retail pharmacies. Medication Leaflets cefdinir ([facility] daniel larkin) What is the most important information I should know about cefdinir? Do not take this medicine if you are allergic to cefdinir, or to similar antibiotics, such as Ceftin, Cefzil, Keflex, and others. What is cefdinir? Cefdinir is a cephalosporin (SEF a low spor in) antibiotic that is used to treat many different types of infections caused by bacteria. Cefdinir may also be used for purposes not listed in this medication guide. What should I discuss with my healthcare provider before taking cefdinir? You should not take this medicine if you are allergic to cefdinir or any other cephalosporin antibiotic (cefadroxil, cefprozil, cefazolin, cefalexin, Keflex, and others). Tell your doctor if you have ever had: kidney disease (or if you are on dialysis); intestinal problems, such as colitis; or an allergy to any drugs (especially penicillins). Cefdinir liquid contains sucrose. Talk to your doctor before using this form of cefdinir if you have diabetes. Tell your doctor if you are or . How should I take cefdinir? Follow all directions on your prescription label and read all medicine guides or instruction sheets. Use the medicine exactly as directed. Shake the oral suspension (liquid) before you measure a dose. Use the dosing syringe provided, or use a medicine dose-measuring device (not a kitchen spoon). You may take cefdinir with or without food. Use this medicine for the full prescribed length of time, even if your symptoms quickly improve. Skipping doses can increase your risk of infection that is resistant to medication. Cefdinir will not treat a viral infection such as the flu or a common cold. Cefdinir can affect the results of certain medical tests. Tell any doctor who treats you that you are using cefdinir. Store at room temperature away from moisture and heat. Throw away any unused cefdinir liquid that is older than 10 days. What happens if I miss a dose? Take the medicine as soon as you can, but skip the missed dose if it is almost time for your next dose. Do not take two doses at one time. What happens if I overdose? Seek emergency medical attention or call the Poison Help line at . Overdose symptoms may include nausea, vomiting, stomach pain, diarrhea, or a seizure. What should I avoid while taking cefdinir? Avoid using antacids or mineral supplements that contain aluminum, magnesium, or iron within 2 hours before or after taking cefdinir. Antacids or iron can make it harder for your body to absorb cefdinir. This does not include baby formula fortified with iron. Antibiotic medicines can cause diarrhea, which may be a sign of a new infection. If you have diarrhea that is watery or bloody, call your doctor before using anti-diarrhea medicine. What are the possible side effects of cefdinir? Get emergency medical help if you have signs of an allergic reaction (hives, difficult breathing, swelling in your face or throat) or a severe skin reaction (fever, sore throat, burning eyes, skin pain, red or purple skin rash with blistering and peeling). Call your doctor at once if you have: severe stomach pain, diarrhea that is watery or bloody (even if it occurs months after your last dose); fever, chills, body aches, flu symptoms; pale skin, easy bruising, unusual bleeding; seizure (convulsions); fever, weakness, confusion; dark colored urine, jaundice (yellowing of the skin or eyes); or kidney problems--little or no urination, swelling in your feet or ankles, feeling tired or short ofbreath. Common side effects may include: nausea, vomiting, stomach pain, diarrhea; vaginal itching or discharge; headache; or rash (including diaper rash in an taking liquid cefdinir. This is not a complete list of side effects and others may occur. Call your doctor for medical advice about side effects. You may report side effects to FDA at 1-903-XFQ-9750. What other drugs will affect cefdinir? Tell your doctor about all your other medicines, especially: probenecid; or vitamin or mineral supplements that contain iron. This list is not complete. Other drugs may affect cefdinir, including prescription and hzci-leu-odpaimx medicines, vitamins, and herbal products. Not all possible drug interactions are listed here. Where can I get more information? Your pharmacist can provide more information about cefdinir. Remember, keep this and all other medicines out of the reach of children, never share your medicines with others, and use this medication only for the indication prescribed. Every effort has been made to ensure that the information provided by [employer]. ('[employer]') is accurate, up-to-date, and complete, but no guarantee is made to that effect. Drug information contained herein may be time sensitive. [employer] information has been compiled for use by healthcare practitioners and consumers in the [place] and therefore [employer] does not warrant that uses outside of the [place] are appropriate, unless specifically indicated otherwise. [facility] drug information does not endorse drugs, diagnose patients or recommend therapy. [facility] drug information isan informational resource designed to assist licensed healthcare practitioners in caring for their p atients and/or to serve consumers viewing this service as a supplement to, and not a substitute for, the expertise, skill, knowledge and judgment of healthcare practitioners. The absence of a warningfor a given drug or drug combination in no way should be construed to indicate that the drug or drug combination is safe, effective or appropriate for any given patient. [employer] does not assume any responsibility for any aspect of healthcare administered with the aid of information [employer] provides. The information contained herein is not intended to cover all possible uses, directions, precautions, warnings, drug interactions, allergic reactions, or adverse effects. If you have questions about the drugs you are taking, check with your doctor, nurse or pharmacist. Copyright 8749-7989 [employer]. Version: 9.01. Revision Date: 11/17/2022. clopidogrel (kloe PID oh grel) Plavix What is the most important information I should know about clopidogrel? You should not use this medicine if you have any active bleeding such as a stomach ulcer or bleeding in the brain. Clopidogrel increases your risk of bleeding, which can be severe or life- threatening. Call your doctor or seek emergency medical attention if you have bleeding that will not stop, if you have blood in your urine, black or bloody stools, or if you cough up blood or vomit that looks like coffee grounds. Do not stop taking clopidogrel without first talking to your doctor, even if you have signs of bleeding. Stopping clopidogrel may increase your risk of a heart attack or stroke. What is clopidogrel? Clopidogrel is used to lower your risk of having a stroke, blood clot, or serious heart problem after you've had a heart attack, severe chest pain (angina), or circulation problems. Clopidogrel may also be used for purposes not listed in this medication guide. What should I discuss with my healthcare provider before taking clopidogrel? You should not use clopidogrel if you are allergic to it, or if you have: any active bleeding; or a stomach ulcer or bleeding in the brain (such as from a head injury). Tell your doctor if you have ever had: an ulcer in your stomach or intestines; or a bleeding disorder or blood clotting disorder. Clopidogrel may not work as well if you have certain genetic factors that affect the breakdown of this medicine in your body. Your doctor may perform a blood test to make sure clopidogrel is right for you. This medicine is not expected to harm an unborn baby. However, taking clopidogrel within 1 week before childbirth can cause bleeding in the mother. Tell your doctor if you are or plan to become . You should not breastfeed while using this medicine. How should I take clopidogrel? Follow all directions on your prescription label and read all medication guides or instruction sheets. Use these medicines exactly as directed. Clopidogrel can be taken with or without food. Clopidogrel is sometimes taken together with aspirin. Take aspirin only if your doctor tells you to. Clopidogrel keeps your blood from coagulating (clotting) and can make it easier for you to bleed, even from a minor injury. Contact your doctor or seek emergency medical attention if you have any bleeding that will not stop. You may need to stop using clopidogrel for a short time before a surgery, medical procedure, or dental work. Any healthcare provider who treats you should know that you are taking clopidogrel. Do not stop taking clopidogrel without first talking to your doctor, even if you have signs of bleeding. Stopping the medicine could increase your risk of a heart attack or stroke. Store at room temperature away from moisture and heat. What happens if I miss a dose? Take the medicine as soon as you can, but skip the missed dose if it is almost time for your next dose. Do not take two doses at one time. What happens if I overdose? Seek emergency medical attention or call the Poison Help line at . Overdose can causeexcessive bleeding. What should I avoid while taking clopidogrel? Avoid alcohol. It can increase your risk of stomach bleeding. Avoid activities that may increase your risk of bleeding or injury. Use extra care to prevent bleeding while shaving or brushing your teeth. If you also take aspirin: Ask a doctor or pharmacist before using medicines for pain, fever, swelling, or cold/flu symptoms. They may contain ingredients similar to aspirin (such as salicylates, ibuprofen, ketoprofen, or naproxen). Taking these products together can increase your risk of bleeding. What are the possible side effects of clopidogrel? Get emergency medical help if you have signs of an allergic reaction: hives; difficult breathing; swelling of your face, lips, tongue, or throat. Clopidogrel increases your risk of bleeding, which can be severe or life- threatening. Call your doctor or seek emergency medical attention if you have bleeding that will not stop, if you have blood in your urine, black or bloody stools, or if you cough up blood or vomit that looks like coffee grounds. Also call your doctor at once if you have: nosebleeds, pale skin, easy bruising, purple spots under your skin or in your mouth; jaundice (yellowing of your skin or eyes); fast heartbeats, shortness of breath; headache, fever, weakness, feeling tired; little or no urination; a seizure; low blood sugar--headache, hunger, sweating, irritability, dizziness, fast heart rate, and feeling anxious or shaky; or signs of a blood clot--sudden numbness or weakness, confusion, problems with vision or speech. Common side effects may include: bleeding. This is not a complete list of side effects and others may occur. Call your doctor for medical advice about side effects. You may report side effects to FDA at 1-582-DQD-2436. What other drugs will affect clopidogrel? Sometimes it is not safe to use certain medications at the same time. Some drugs can affect your blood levels of other drugs you take, which may increase side effects or make the medications less effective. Tell your doctor about all your other medicines, especially: a stomach acid tinsel machine operator such as omeprazole, Nexium, or Prilosec; an antidepressant such as citalopram, fluoxetine, sertraline, Cymbalta, Effexor, Lexapro, Pristiq, or Prozac; rifampin; a blood thinner--warfarin, Coumadin, Jantoven; or NSAIDs (nonsteroidal anti-inflammatory drugs)--aspirin, ibuprofen (Advil, Motrin), naproxen (Aleve), celecoxib, diclofenac, indomethacin, meloxicam, and others. This list is not complete. Other drugs may affect clopidogrel, including prescription and dnvq-cxo-pdjapte medicines, vitamins, and herbal products. Not all possible drug interactions are listed here. Where can I get more information? Your pharmacist can provide more information about clopidogrel. Remember, keep this and all other medicines out of the reach of children, never share your medicines with others, and use this medication only for the indication prescribed. Every effort has been made to ensure that the information provided by [employer]') is accurate, up-to-date, and complete, but no guarantee is made to that effect. Drug information contained herein may be time sensitive. [employer] information has been compiled for use by healthcare practitioners and consumers in the [place] and therefore [employer] does not warrant that uses outside of the [place] are appropriate, unless specifically indicated otherwise. [facility] drug information does not endorse drugs, diagnose patients or recommend therapy. [facility] drug information isan informational resource designed to assist licensed healthcare practitioners in caring for their p atients and/or to serve consumers viewing this service as a supplement to, and not a substitute for, the expertise, skill, knowledge and judgment of healthcare practitioners. The absence of a warningfor a given drug or drug combination in no way should be construed to indicate that the drug or drug combination is safe, effective or appropriate for any given patient. [employer] does not assume any responsibility for any aspect of healthcare administered with the aid of information [employer] provides. The information contained herein is not intended to cover all possible uses, directions, precautions, warnings, drug interactions, allergic reactions, or adverse effects. If you have questions about the drugs you are taking, check with your doctor, nurse or pharmacist. Copyright Carlos Buck. Version: 18.. Revision Date: 07/14/2020. Education Materials Diabetes Basics Diabetes (diabetes mellitus) is a long-term (chronic) disease. It occurs when the body does not properly use sugar (glucose) that is released from food after you eat. Diabetes may be caused by one or both of these problems: Your pancreas does not make enough of a hormone called insulin. Your body does not react in a normal way to insulin that it makes. Insulin lets sugars (glucose) go into cells in your body. This gives you energy. If you have diabetes, sugars cannot get into cells. This causes high blood sugar (hyperglycemia). Follow these instructions at home: How is diabetes treated? You may need to take insulin or other diabetes medicines daily to keep your blood sugar in balance.Take your diabetes medicines every day as told by your doctor. List your diabetes medicines here: Diabetes medicines Name of medicine: ? Amount (dose): Time (a.m./p.m.): Notes: Name of medicine: ? Amount (dose): Time (a.m./p.m.): Notes: Name of medicine: ? Amount (dose): Time (a.m./p.m.): Notes: If you use insulin, you will learn how to give yourself insulin by injection. You may need to adjust the amount based on the food that you eat. List the types of insulin you use here: Insulin Insulin type: ? Amount (dose): Time (a.m./p.m.): Notes: Insulin type: ? Amount (dose): Time (a.m./p.m.): Notes: Insulin type: ? Amount (dose): Time (a.m./p.m.): Notes: Insulin type: ? Amount (dose): Time (a.m./p.m.): Notes: Insulin type: ? Amount (dose): Time (a.m./p.m.): Notes: How do I manage my blood sugar? Check your blood sugar levels using a blood glucose monitor as directed by your doctor. Your doctor will set treatment goals for you. Generally, you should have these blood sugar levels: Before meals (preprandial): 80 130 mg/dL (4.4 7.2 mmol/L). After meals (postprandial): below 180 mg/dL (10 mmol/L). A1c level: less than 7%. Write down the times that you will check your blood sugar levels: Blood sugar checks Time: Notes: Time: Notes: Time: Notes: Time: Notes: Time: Notes: Time: Notes: What do I need to know about low blood sugar? Low blood sugar is called hypoglycemia. This is when blood sugar is at or below 70 mg/dL (3.9 mmol/L). Symptoms may include: Feeling: ? Hungry. ? Worried or nervous (anxious). ? Sweaty and clammy. ? Confused. ? Dizzy. ? Sleepy. ? Sick to your stomach (nauseous). Having: ? A fast heartbeat. ? A headache. ? A change in your vision. ? Tingling or no feeling (numbness) around the mouth, lips, or tongue. ? Jerky movements that you cannot control (seizure). Having trouble with: ? Moving (coordination). ? Sleeping. ? Passing out (fainting). ? Getting upset easily (irritability). Treating low blood sugar To treat low blood sugar, eat or drink something sugary right away. If you can think clearly and swallow safely, follow the 15:15 rule: Take 15 grams of a fast-acting carb (carbohydrate). Talk with your doctor about how much you shouldtake. Some fast-acting carbs are: ? Sugar tablets (glucose pills). Take 3 4 glucose pills. ? 6 8 pieces of hard candy. ? 4 6 oz (120 150 mL) of fruit juice. ? 4 6 oz (120 150 mL) of regular (not diet) soda. ? 1 Tbsp (15 mL) honey or sugar. Check your blood sugar 15 minutes after you take the carb. If your blood sugar is still at or below 70 mg/dL (3.9 mmol/L), take 15 grams of a carb again. If your blood sugar does not go above 70 mg/dL (3.9 mmol/L) after 3 tries, get help right away. After your blood sugar goes back to normal, eat a meal or a snack within 1 hour. Treating very low blood sugar If your blood sugar is at or below 54 mg/dL (3 mmol/L), you have very low blood sugar (severe hypoglycemia). This is an emergency. Do not wait to see if the symptoms will go away. Get medical help right away. Call your local emergency services (911 in the [place] Do not drive yourself to the hospital. Questions to ask your health care provider Do I need to meet with a wellness educator? What equipment will I need to care for myself at home? What diabetes medicines do I need? When should I take them? How often do I need to check my blood sugar? What number can I call if I have questions? When is my next doctor's visit? Where can I find a support group for people with diabetes? Where to find more information [place] [employer]: www.diabetes.org [place] [employer]: www.diabeteseducator.org/patient-resources Contact a doctor if: Your blood sugar is at or above 240 mg/dL (13.3 mmol/L) for 2 days in a row. You have been sick or have had a fever for 2 days or more, and you are not getting better. You have any of these problems for more than 6 hours: ? You cannot eat or drink. ? You feel sick to your stomach (nauseous). ? You throw up (vomit). ? You have watery poop (diarrhea). Get help right away if: Your blood sugar is lower than 54 mg/dL (3 mmol/L). You get confused. You have trouble: ? Thinking clearly. ? Breathing. Summary Diabetes (diabetes mellitus) is a long-term (chronic) disease. It occurs when the body does not properly use sugar (glucose) that is released from food after digestion. Take insulin and diabetes medicines as told. Check your blood sugar every day, as often as told. Keep all follow-up visits as told by your doctor. This is important. This information is not intended to replace advice given to you by your health care provider. Make sure you discuss any questions you have with your health care provider. Document Released: 07/05/2018 Document Revised: 05/23/2019 Document Reviewed: 07/05/2018 Elsevier Patient Education 2020 [employer] Additional Information VACCINATE! IT SAVES LIVES! Members of the community who have not yet received the COVID-19 vaccine and would like to receive it can visit one of [facility] vaccine clinics. There are many vaccine clinic locations within the [facility]. For locations and available times, please visit [email or web address].[email or web address]/. It is important to note that some COVID mobile vaccine clinics are held outdoors and may be canceled in rainy or stormy conditions. To learn more about pediatric vaccinations (ages 5-11), we invite you to visit the [facility] webpage. [email or web address]/[email or web address]-[email or web address] [email or web address] learn more about the COVID-19 vaccine, we invite you to visit the CDC website for a list of frequently asked questions.https://www.cdc.gov/coronavirus/2019-ncov/vaccines/faq.html [facility] Patient Portal Access Instructions: Stay connected with your healthcare team and access your personal medical information anytime with the [facility] Patient Portal. Please follow the directions below to create your [facility] account: 1.Access the email account you provided upon registration to the hospital/physician office.2.Look for an invitation email from [facility].3.Open the email and access the invitation link: AcceptInvitation to [facility].4.Fill in the required christian to create your account. To access your account, visit [facility]. Click the blue button labeled Access Patient Portal and then log in with the username and password that you created in the steps above. You will be able to view your test results, lab results, a summary of your visits, upcoming appointments and more. There is also a convenient messaging option where you can send secure messages to your p rovider. In addition, you will have the ability to download any documents or summaries to your computer and/or send the information securely to a physician. Remember that your healthcare information is confidential, so carefully consider who you will allowto register on the [facility] Patient Portal for access to your information. You can also access the [facility] on the [facility]. Simply click on Patient Portal and then log into your account. If you would like to receive a full copy of your medical records, please contact the [facility] Medical Records Department by calling [phone], Sunday through Sunday between 8 a.m. and 4:30 p.m. HOW TO SAFELY DISPOSE OF PRESCRIPTION MEDICATIONS Please use one of the following methods to safely dispose of your unused medications. 1.Use a drug disposal kit: the drug disposal pouch allows you to safely discard your old and unuseddrugs. Ask your nurse to give you one when you are discharged.2.Visit a local take-back location: Many local pharmacies and police departments have programs that collect old and unwanted prescriptiondrugs. Call your local pharmacy or go to http://[employer] [place]/1Y2Uu4i to find one close to you.3.Make use of household items: Use cat litter or old coffee grounds to dispose medications if other options arenot available. Mix your drugs with these household products, seal them in an airtight container andthrow it into the garbage. Call [facility]: [phone] to be sure your drugs can be disposed of in this way. Some medicines may require a different approach.4.Never flush your medications down the toilet. IF YOU HAVE BEEN PRESCRIBED AN OPIOID FOR PAIN If you have been prescribed an opioid (such as hydrocodone, oxycodone or morphine), it is critical to understand the possible side effects and risks of opioid pain medications. Even when taken as directed, opioids can have several side effects including: Tolerance, meaning you might need to take more of a medication for the same pain relief. Nausea, vomiting and/or constipation. Sleepiness, dizziness, dry mouth, confusion, depression or itching. Physical dependence, meaning you have withdrawal symptoms when a medication is stopped, can develop within a few days. KNOW YOUR RESPONSIBILITIES It is important to know exactly how much and how often to take the opioid pain medications you are prescribed. Never take opioids in higher amounts or more often than prescribed. Do not combine opioids with alcohol or other drugs that cause drowsiness, such as benzodiazepines, also known as benzos, including diazepam and alprazolam, muscle relaxants or sleep aids. Never sell or share prescription opioids. This is illegal. Store opioids in a secure place and out of reach of others (including children, family, friends and visitors). The last page of this document has been signed and retained as a CHART COPY. Signatures Patient Education Materials Diabetes Basics Medication Leaflets cefdinir, clopidogrel My discharge plan and instructions have been reviewed and explained to me and I,ALEXUS MOYER understand my current condition and have read and understand these discharge instructions. I have received a written copy of the plan/instructions. If I have questions, I am aware that I should contact my doctor. 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 The following is importantdischarge information regarding your hospital visit. Your Care Team MEY MADDOX APRN-CALL OUT CLERK Your Diagnosis Diabetes Stroke What to do next Instructions From Your Doctor You had a stroke. Start taking plavix 75 daily and aspirin 81 daily. After 21 days take only plavix. We have given you a heart monitor to wear for 30 days. [facility] I was unable to find records of your insulin. Therefore I prescribed insulin for you. If you have insulin at home, feel free to resume your original regimen. We have added ezetimibe for your cholesterol. Continue to follow with your primary care provider. Follow Up Appointments Follow Up with [facility] Bed, When Within 1-2 days Why: Room 239 Follow Up with [facility] When In 3 weeks Why: [facility] [address] [place] [address] or [address] Where: Follow Up with MEY MADDOX When Within 3-7 days Why: Please call the office within 2 days to schedule a follow-up appointment. Where: [address] [place] [address]- The Following Activity and Diet Have Been Ordered for You Transfer of Care Activity - Ordered -- Activity As Tolerated, 03/14/23 15:10:00 EST Transfer of Care Diet - Ordered -- Type of Diet: Regular Diet, 03/14/23 15:10:00 EST The Following Equipment Has Been Ordered for You No qualifying data available. The Following Treatments Have Been Ordered for You Discharge Labs Transfer of Care Labwork - Ordered -- BMP, monitor on lisinopril, follow-up within: 1 week, Results Notify to: MEY MADDOX, 03/14/23 15:10:00 EST Discharge Radiology No qualifying data available. Other Therapies Discharge Event Monitor Instructions - Ordered -- 03/14/23 15:10:50 EST, You have been ordered mobile outpatient telemetry. You should receive a device in the mail with further instructions. If you have not received a device within 7 days after discharge, please call [facility] at [phone]. Transfer of Care OT - Ordered -- Reason for therapy: Stroke, 03/14/23 15:10:00 EST Transfer of Care PT - Ordered -- Reason for therapy: Stroke, 03/14/23 15:10:00 EST Post Acute Orders Transfer of Care Code Status - Ordered -- DNRCC-Arrest Do Not Intubate, Constant Order Transfer of Care Labwork - Ordered -- BMP, monitor on lisinopril, follow-up within: 1 week, Results Notify to: MEY AMDDOX, 03/14/23 15:10:00 EST Transfer of Care Orders Electronically Signed By - Ordered -- 03/14/23 15:10:00 ESTTIANA KYLE DO Transfer of Care Prognosis - Ordered -- Fair, Patient Aware: Yes Transfer of Care Rehab Potential - Ordered -- Rehab potential angel, 03/14/23 15:10:22 EST Someone Will Contact You Regarding These Home Health Referrals No home referrals have been ordered for you. No one will call you. Allergies Crestor (Myalgia) Demerol HCl (SEVERE N/V) Epinephrine (SEVERE SHAKING) Iodine (HIVES) Medications Please ask your primary doctor or pharmacist before taking any other medication not listed, including over the counter drugs, herbal medications, vitamins and or supplements as they may interact withyour home medications. What How Much When Why Instructions Last Dose New acetaminophen 650 Milligram by mouth Every 6 hours as needed for Pain, scale 1-10 New acetaminophen (Tylenol 325 mg oral capsule) 650 Milligram by mouth Every 4 hours as needed for Temperature greater than 38.5 degrees C New acetaminophen (Tylenol) 650 Milligram in the rectum Every 4 hours as needed for Temperature greater than 38.5 degrees C New cefdinir (cefdinir 300 mg oral capsule) 1 cap by mouth Every 12 hours Duration: 1 Days Pickup at [facility] #[id number] New clopidogrel (Plavix 75 mg oral tablet) 1 tab(s) by mouth Once a day Duration: 30 Days Refills: 1 Pickup at [facility] #[id number] New ezetimibe (ezetimibe 10 mg oral tablet) 1 tab(s) by mouth Once a day Pickup at [facility] #[id number] New glucose (glucose 50% intravenous solution) 25 Milliliter IV Push As Directed as needed for Hypoglycemia New hydrALAZINE (hydrALAZINE 20 mg/ mL injectable solution) 0.5 Milliliter IV Push Every 4 hours as needed for Blood pressure control New insulin glargine (Lantus Solostar Pen 100 units/ mL 3 mL Pen) 15 unit(s) Subcutaneous Daily at bedtime Diabetes Pickup at [facility] #[id number] New insulin lispro (HumaLOG) (HumaLOG KwikPen 100 units/ mL injectable PEN) 5 unit(s) Subcutaneous Three (3) times a day with meals Diabetes Duration: 30 Days Hold if you eat less than 50% of your meal Pickup at [facility] #[id number] New melatonin (melatonin 3 mg oral tablet) 1 tab(s) by mouth Daily at bedtime as needed for Sleep New NIFEdipine (NIFEdipine 30 mg oral tablet, extended release) 1 tab(s) by mouth Once a day Duration: 30 Days please discontinue prescription for nifedipine 60. Decreased to 30 to allow for CANDI in addition given diabetes Pickup at [facility] #[id number] New pantoprazole (Protonix 40 mg oral enteric coated tablet) 1 tab(s) by mouth Once a day before a meal Duration: 30 Days Pickup at [facility] #[id number] Changed DME (DME MISCellaneous) See instructions Diabetes Pen needles, enough for 4 injections daily x 30 days. Any 4/ 5 mm pen needle in stock and covered by insurance is appropriate Pickup at [facility] #[id number] Changed lisinopril (lisinopril 5 mg oral tablet) 1 tab(s) by mouth Once a day Duration: 30 Days Pickup at [facility] #[id number] Unchanged aspirin (aspirin 81 mg oral tablet, chewable) 1 tab(s) by mouth Every day Duration: 90 Days Unchanged atorvastatin (atorvastatin 80 mg oral tablet) 1 tab(s) by mouth Once a day Duration: 90 Days Unchanged bisoprolol (bisoprolol 5 mg oral tablet) 1 tab(s) by mouth Once a day Pharmacy Information [facility] #[id number]: [address], [place] [id number] [phone] What How Much When Comments Stop Taking ascorbic acid (Vitamin C 500 mg oral tablet) 1 tab(s) by mouth Once a day Stop Taking cholecalciferol (Vitamin D3 125 mcg (5000 intl units) oral capsule) 1 cap by mouth Once a day Stop Taking glucagon (Gvoke HypoPen One Pack 0.5 mg/ 0.1 mL subcutaneous solution) 0.1 Milliliter Subcutaneous As Directed as needed for for low blood sugar Stop Taking insulin aspart-insulin aspart protamine (Novolog Mix 70/ 30) (NovoLOG Mix 70/ 30 FlexPen 3 mL Pen) 14 unit(s) Subcutaneous Two (2) times a day sliding scale up to 14 units BID IF BGT <150 no insulin BGT 150-200 take 4 units BGT 201-250 take 6 units BGT 251-300 take 8 units BGT 301-350 take 10 units BGT 351-400 take 12 units BGT 401 or higher take 14 units Stop Taking vitamin E (vitamin E 400 intl units oral capsule) 1 cap by mouth Every day Stop Taking zinc citrate (zinc citrate 50 mg oral capsule) Please take this list to your next doctor s visit. Bring all medications you take, including over the counter medications, herbals and other supplements with you to your doctor s visit. Patients and families are reminded to discard old lists and to update any records with all medication providers or retail pharmacies. Medication Leaflets cefdinir (BRITTNI daniel larkin) What is the most important information I should know about cefdinir? Do not take this medicine if you are allergic to cefdinir, or to similar antibiotics, such as Ceftin, Cefzil, Keflex, and others. What is cefdinir? Cefdinir is a cephalosporin (SEF a low spor in) antibiotic that is used to treat many different types of infections caused by bacteria. Cefdinir may also be used for purposes not listed in this medication guide. What should I discuss with my healthcare provider before taking cefdinir? You should not take this medicine if you are allergic to cefdinir or any other cephalosporin antibiotic (cefadroxil, cefprozil, cefazolin, cefalexin, Keflex, and others). Tell your doctor if you have ever had: kidney disease (or if you are on dialysis); intestinal problems, such as colitis; or an allergy to any drugs (especially penicillins). Cefdinir liquid contains sucrose. Talk to your doctor before using this form of cefdinir if you have diabetes. Tell your doctor if you are or . How should I take cefdinir? Follow all directions on your prescription label and read all medicine guides or instruction sheets. Use the medicine exactly as directed. Shake the oral suspension (liquid) before you measure a dose. Use the dosing syringe provided, or use a medicine dose-measuring device (not a kitchen spoon). You may take cefdinir with or without food. Use this medicine for the full prescribed length of time, even if your symptoms quickly improve. Skipping doses can increase your risk of infection that is resistant to medication. Cefdinir will not treat a viral infection such as the flu or a common cold. Cefdinir can affect the results of certain medical tests. Tell any doctor who treats you that you are using cefdinir. Store at room temperature away from moisture and heat. Throw away any unused cefdinir liquid that is older than 10 days. What happens if I miss a dose? Take the medicine as soon as you can, but skip the missed dose if it is almost time for your next dose. Do not take two doses at one time. What happens if I overdose? Seek emergency medical attention or call the Poison Help line at . Overdose symptoms may include nausea, vomiting, stomach pain, diarrhea, or a seizure. What should I avoid while taking cefdinir? Avoid using antacids or mineral supplements that contain aluminum, magnesium, or iron within 2 hours before or after taking cefdinir. Antacids or iron can make it harder for your body to absorb cefdinir. This does not include baby formula fortified with iron. Antibiotic medicines can cause diarrhea, which may be a sign of a new infection. If you have diarrhea that is watery or bloody, call your doctor before using anti-diarrhea medicine. What are the possible side effects of cefdinir? Get emergency medical help if you have signs of an allergic reaction (hives, difficult breathing, swelling in your face or throat) or a severe skin reaction (fever, sore throat, burning eyes, skin pain, red or purple skin rash with blistering and peeling). Call your doctor at once if you have: severe stomach pain, diarrhea that is watery or bloody (even if it occurs months after your last dose); fever, chills, body aches, flu symptoms; pale skin, easy bruising, unusual bleeding; seizure (convulsions); fever, weakness, confusion; dark colored urine, jaundice (yellowing of the skin or eyes); or kidney problems--little or no urination, swelling in your feet or ankles, feeling tired or short ofbreath. Common side effects may include: nausea, vomiting, stomach pain, diarrhea; vaginal itching or discharge; headache; or rash (including diaper rash in an taking liquid cefdinir. This is not a complete list of side effects and others may occur. Call your doctor for medical advice about side effects. You may report side effects to FDA at 0-144-RKR-4563. What other drugs will affect cefdinir? Tell your doctor about all your other medicines, especially: probenecid; or vitamin or mineral supplements that contain iron. This list is not complete. Other drugs may affect cefdinir, including prescription and lvos-pth-huxqxwb medicines, vitamins, and herbal products. Not all possible drug interactions are listed here. Where can I get more information? Your pharmacist can provide more information about cefdinir. Remember, keep this and all other medicines out of the reach of children, never share your medicines with others, and use this medication only for the indication prescribed. Every effort has been made to ensure that the information provided by [employer] is accurate, up-to-date, and complete, but no guarantee is made to that effect. Drug information contained herein may be time sensitive. [employer] information has been compiled for use by healthcare practitioners and consumers in the [place] and therefore [employer] does not warrant that uses outside of the [place] are appropriate, unless specifically indicated otherwise. [facility] [employer] drug information does not endorse drugs, diagnose patients or recommend therapy. [facility] drug information isan informational resource designed to assist licensed healthcare practitioners in caring for their p atients and/or to serve consumers viewing this service as a supplement to, and not a substitute for, the expertise, skill, knowledge and judgment of healthcare practitioners. The absence of a warningfor a given drug or drug combination in no way should be construed to indicate that the drug or drug combination is safe, effective or appropriate for any given patient. [employer] does not assume any responsibility for any aspect of healthcare administered with the aid of information [employer] provides. The information contained herein is not intended to cover all possible uses, directions, precautions, warnings, drug interactions, allergic reactions, or adverse effects. If you have questions about the drugs you are taking, check with your doctor, nurse or pharmacist. Copyright 8164-3767 [employer]. Version: 9.01. Revision Date: 11/17/2022. clopidogrel (kloe PID oh grel) Plavix What is the most important information I should know about clopidogrel? You should not use this medicine if you have any active bleeding such as a stomach ulcer or bleeding in the brain. Clopidogrel increases your risk of bleeding, which can be severe or life- threatening. Call your doctor or seek emergency medical attention if you have bleeding that will not stop, if you have blood in your urine, black or bloody stools, or if you cough up blood or vomit that looks like coffee grounds. Do not stop taking clopidogrel without first talking to your doctor, even if you have signs of bleeding. Stopping clopidogrel may increase your risk of a heart attack or stroke. What is clopidogrel? Clopidogrel is used to lower your risk of having a stroke, blood clot, or serious heart problem after you've had a heart attack, severe chest pain (angina), or circulation problems. Clopidogrel may also be used for purposes not listed in this medication guide. What should I discuss with my healthcare provider before taking clopidogrel? You should not use clopidogrel if you are allergic to it, or if you have: any active bleeding; or a stomach ulcer or bleeding in the brain (such as from a head injury). Tell your doctor if you have ever had: an ulcer in your stomach or intestines; or a bleeding disorder or blood clotting disorder. Clopidogrel may not work as well if you have certain genetic factors that affect the breakdown of this medicine in your body. Your doctor may perform a blood test to make sure clopidogrel is right for you. This medicine is not expected to harm an unborn baby. However, taking clopidogrel within 1 week before childbirth can cause bleeding in the mother. Tell your doctor if you are or plan to become . You should not breastfeed while using this medicine. How should I take clopidogrel? Follow all directions on your prescription label and read all medication guides or instruction sheets. Use these medicines exactly as directed. Clopidogrel can be taken with or without food. Clopidogrel is sometimes taken together with aspirin. Take aspirin only if your doctor tells you to. Clopidogrel keeps your blood from coagulating (clotting) and can make it easier for you to bleed, even from a minor injury. Contact your doctor or seek emergency medical attention if you have any bleeding that will not stop. You may need to stop using clopidogrel for a short time before a surgery, medical procedure, or dental work. Any healthcare provider who treats you should know that you are taking clopidogrel. Do not stop taking clopidogrel without first talking to your doctor, even if you have signs of bleeding. Stopping the medicine could increase your risk of a heart attack or stroke. Store at room temperature away from moisture and heat. What happens if I miss a dose? Take the medicine as soon as you can, but skip the missed dose if it is almost time for your next dose. Do not take two doses at one time. What happens if I overdose? Seek emergency medical attention or call the Poison Help line at . Overdose can causeexcessive bleeding. What should I avoid while taking clopidogrel? Avoid alcohol. It can increase your risk of stomach bleeding. Avoid activities that may increase your risk of bleeding or injury. Use extra care to prevent bleeding while shaving or brushing your teeth. If you also take aspirin: Ask a doctor or pharmacist before using medicines for pain, fever, swelling, or cold/flu symptoms. They may contain ingredients similar to aspirin (such as salicylates, ibuprofen, ketoprofen, or naproxen). Taking these products together can increase your risk of bleeding. What are the possible side effects of clopidogrel? Get emergency medical help if you have signs of an allergic reaction: hives; difficult breathing; swelling of your face, lips, tongue, or throat. Clopidogrel increases your risk of bleeding, which can be severe or life- threatening. Call your doctor or seek emergency medical attention if you have bleeding that will not stop, if you have blood in your urine, black or bloody stools, or if you cough up blood or vomit that looks like coffee grounds. Also call your doctor at once if you have: nosebleeds, pale skin, easy bruising, purple spots under your skin or in your mouth; jaundice (yellowing of your skin or eyes); fast heartbeats, shortness of breath; headache, fever, weakness, feeling tired; little or no urination; a seizure; low blood sugar--headache, hunger, sweating, irritability, dizziness, fast heart rate, and feeling anxious or shaky; or signs of a blood clot--sudden numbness or weakness, confusion, problems with vision or speech. Common side effects may include: bleeding. This is not a complete list of side effects and others may occur. Call your doctor for medical advice about side effects. You may report side effects to FDA at 1-875-QIG-5606. What other drugs will affect clopidogrel? Sometimes it is not safe to use certain medications at the same time. Some drugs can affect your blood levels of other drugs you take, which may increase side effects or make the medications less effective. Tell your doctor about all your other medicines, especially: a stomach acid tinsel machine operator such as omeprazole, Nexium, or Prilosec; an antidepressant such as citalopram, fluoxetine, sertraline, Cymbalta, Effexor, Lexapro, Pristiq, or Prozac; rifampin; a blood thinner--warfarin, Coumadin, Jantoven; or NSAIDs (nonsteroidal anti-inflammatory drugs)--aspirin, ibuprofen (Advil, Motrin), naproxen (Aleve), celecoxib, diclofenac, indomethacin, meloxicam, and others. This list is not complete. Other drugs may affect clopidogrel, including prescription and vrep-wet-uzwmwrf medicines, vitamins, and herbal products. Not all possible drug interactions are listed here. Where can I get more information? Your pharmacist can provide more information about clopidogrel. Remember, keep this and all other medicines out of the reach of children, never share your medicines with others, and use this medication only for the indication prescribed. Every effort has been made to ensure that the information provided by [employer] is accurate, up-to-date, and complete, but no guarantee is made to that effect. Drug information contained herein may be time sensitive. [employer] information has been compiled for use by healthcare practitioners and consumers in the [place] and therefore [employer] does not warrant that uses outside of the [place] are appropriate, unless specifically indicated otherwise. [facility] drug information does not endorse drugs, diagnose patients or recommend therapy. [facility] drug information isan informational resource designed to assist licensed healthcare practitioners in caring for their p atients and/or to serve consumers viewing this service as a supplement to, and not a substitute for, the expertise, skill, knowledge and judgment of healthcare practitioners. The absence of a warningfor a given drug or drug combination in no way should be construed to indicate that the drug or drug combination is safe, effective or appropriate for any given patient. [employer] does not assume any responsibility for any aspect of healthcare administered with the aid of information [employer] provides. The information contained herein is not intended to cover all possible uses, directions, precautions, warnings, drug interactions, allergic reactions, or adverse effects. If you have questions about the drugs you are taking, check with your doctor, nurse or pharmacist. Copyright 3737-2601 [employer]. Version: 18.. Revision Date: 07/14/2020. Education Materials Diabetes Basics Diabetes (diabetes mellitus) is a long-term (chronic) disease. It occurs when the body does not properly use sugar (glucose) that is released from food after you eat. Diabetes may be caused by one or both of these problems: Your pancreas does not make enough of a hormone called insulin. Your body does not react in a normal way to insulin that it makes. Insulin lets sugars (glucose) go into cells in your body. This gives you energy. If you have diabetes, sugars cannot get into cells. This causes high blood sugar (hyperglycemia). Follow these instructions at home: How is diabetes treated? You may need to take insulin or other diabetes medicines daily to keep your blood sugar in balance.Take your diabetes medicines every day as told by your doctor. List your diabetes medicines here: Diabetes medicines Name of medicine: ? Amount (dose): Time (a.m./p.m.): Notes: Name of medicine: ? Amount (dose): Time (a.m./p.m.): Notes: Name of medicine: ? Amount (dose): Time (a.m./p.m.): Notes: If you use insulin, you will learn how to give yourself insulin by injection. You may need to adjust the amount based on the food that you eat. List the types of insulin you use here: Insulin Insulin type: ? Amount (dose): Time (a.m./p.m.): Notes: Insulin type: ? Amount (dose): Time (a.m./p.m.): Notes: Insulin type: ? Amount (dose): Time (a.m./p.m.): Notes: Insulin type: ? Amount (dose): Time (a.m./p.m.): Notes: Insulin type: ? Amount (dose): Time (a.m./p.m.): Notes: How do I manage my blood sugar? Check your blood sugar levels using a blood glucose monitor as directed by your doctor. Your doctor will set treatment goals for you. Generally, you should have these blood sugar levels: Before meals (preprandial): 80 130 mg/dL (4.4 7.2 mmol/L). After meals (postprandial): below 180 mg/dL (10 mmol/L). A1c level: less than 7%. Write down the times that you will check your blood sugar levels: Blood sugar checks Time: Notes: Time: Notes: Time: Notes: Time: Notes: Time: Notes: Time: Notes: What do I need to know about low blood sugar? Low blood sugar is called hypoglycemia. This is when blood sugar is at or below 70 mg/dL (3.9 mmol/L). Symptoms may include: Feeling: ? Hungry. ? Worried or nervous (anxious). ? Sweaty and clammy. ? Confused. ? Dizzy. ? Sleepy. ? Sick to your stomach (nauseous). Having: ? A fast heartbeat. ? A headache. ? A change in your vision. ? Tingling or no feeling (numbness) around the mouth, lips, or tongue. ? Jerky movements that you cannot control (seizure). Having trouble with: ? Moving (coordination). ? Sleeping. ? Passing out (fainting). ? Getting upset easily (irritability). Treating low blood sugar To treat low blood sugar, eat or drink something sugary right away. If you can think clearly and swallow safely, follow the 15:15 rule: Take 15 grams of a fast-acting carb (carbohydrate). Talk with your doctor about how much you shouldtake. Some fast-acting carbs are: ? Sugar tablets (glucose pills). Take 3 4 glucose pills. ? 6 8 pieces of hard candy. ? 4 6 oz (120 150 mL) of fruit juice. ? 4 6 oz (120 150 mL) of regular (not diet) soda. ? 1 Tbsp (15 mL) honey or sugar. Check your blood sugar 15 minutes after you take the carb. If your blood sugar is still at or below 70 mg/dL (3.9 mmol/L), take 15 grams of a carb again. If your blood sugar does not go above 70 mg/dL (3.9 mmol/L) after 3 tries, get help right away. After your blood sugar goes back to normal, eat a meal or a snack within 1 hour. Treating very low blood sugar If your blood sugar is at or below 54 mg/dL (3 mmol/L), you have very low blood sugar (severe hypoglycemia). This is an emergency. Do not wait to see if the symptoms will go away. Get medical help right away. Call your local emergency services (911 in the [place] Do not drive yourself to the hospital. Questions to ask your health care provider Do I need to meet with a wellness educator? What equipment will I need to care for myself at home? What diabetes medicines do I need? When should I take them? How often do I need to check my blood sugar? What number can I call if I have questions? When is my next doctor's visit? Where can I find a support group for people with diabetes? Where to find more information [place] [employer]: www.diabetes.org [employer]: [email or web address].[email or web address]/patient-resources Contact a doctor if: Your blood sugar is at or above 240 mg/dL (13.3 mmol/L) for 2 days in a row. You have been sick or have had a fever for 2 days or more, and you are not getting better. You have any of these problems for more than 6 hours: ? You cannot eat or drink. ? You feel sick to your stomach (nauseous). ? You throw up (vomit). ? You have watery poop (diarrhea). Get help right away if: Your blood sugar is lower than 54 mg/dL (3 mmol/L). You get confused. You have trouble: ? Thinking clearly. ? Breathing. Summary Diabetes (diabetes mellitus) is a long-term (chronic) disease. It occurs when the body does not properly use sugar (glucose) that is released from food after digestion. Take insulin and diabetes medicines as told. Check your blood sugar every day, as often as told. Keep all follow-up visits as told by your doctor. This is important. This information is not intended to replace advice given to you by your health care provider. Make sure you discuss any questions you have with your health care provider. Document Released: 07/05/2018 Document Revised: 05/23/2019 Document Reviewed: 07/05/2018 [employer] Patient Education 2020 [email or web address] Additional Information VACCINATE! IT SAVES LIVES! Members of the community who have not yet received the COVID-19 vaccine and would like to receive it can visit one of [facility] vaccine clinics. There are many vaccine clinic locations within the [facility]. For locations and available times, please visit [email or web address] It is important to note that some COVID mobile vaccine clinics are held outdoors and may be canceled in rainy or stormy conditions. To learn more about pediatric vaccinations (ages 5-11), we invite you to visit the [facility] webpage. [email or web address]/[email or web address] [email or web address] learn more about the COVID-19 vaccine, we invite you to visit the CDC website for a list of frequently asked questions.https://www.cdc.gov/coronavirus/2019-ncov/vaccines/faq.html [facility] Patient Portal Access Instructions: Stay connected with your healthcare team and access your personal medical information anytime with the [facility] Patient Portal. Please follow the directions below to create your [facility] account: 1.Access the email account you provided upon registration to the hospital/physician office.2.Look for an invitation email from [facility].3.Open the email and access the invitation link: AcceptInvitation to [facility].4.Fill in the required christian to create your account. To access your account, visit [facility]. Click the blue button labeled Access Patient Portal and then log in with the username and password that you created in the steps above. You will be able to view your test results, lab results, a summary of your visits, upcoming appointments and more. There is also a convenient messaging option where you can send secure messages to your p rovider. In addition, you will have the ability to download any documents or summaries to your computer and/or send the information securely to a physician. Remember that your healthcare information is confidential, so carefully consider who you will allowto register on the [facility] Patient Portal for access to your information. You can also access the [facility] Patient Portal on the [employer] ricco. Simply click on Patient Portal and then log into your account. If you would like to receive a full copy of your medical records, please contact the [facility] Medical Records Department by calling [phone], Sunday through Sunday between 8 a.m. and 4:30 p.m. HOW TO SAFELY DISPOSE OF PRESCRIPTION MEDICATIONS Please use one of the following methods to safely dispose of your unused medications. 1.Use a drug disposal kit: the drug disposal pouch allows you to safely discard your old and unuseddrugs. Ask your nurse to give you one when you are discharged.2.Visit a local take-back location: Many local pharmacies and police departments have programs that collect old and unwanted prescriptiondrugs. Call your local pharmacy or go to http://Crocs.[employer]/8C2An4m to find one close to you.3.Make use of household items: Use cat litter or old coffee grounds to dispose medications if other options arenot available. Mix your drugs with these household products, seal them in an airtight container andthrow it into the garbage. Call [facility]: [phone] to be sure your drugs can be disposed of in this way. Some medicines may require a different approach.4.Never flush your medications down the toilet. IF YOU HAVE BEEN PRESCRIBED AN OPIOID FOR PAIN If you have been prescribed an opioid (such as hydrocodone, oxycodone or morphine), it is critical to understand the possible side effects and risks of opioid pain medications. Even when taken as directed, opioids can have several side effects including: Tolerance, meaning you might need to take more of a medication for the same pain relief. Nausea, vomiting and/or constipation. Sleepiness, dizziness, dry mouth, confusion, depression or itching. Physical dependence, meaning you have withdrawal symptoms when a medication is stopped, can develop within a few days. KNOW YOUR RESPONSIBILITIES It is important to know exactly how much and how often to take the opioid pain medications you are prescribed. Never take opioids in higher amounts or more often than prescribed. Do not combine opioids with alcohol or other drugs that cause drowsiness, such as benzodiazepines, also known as benzos, including diazepam and alprazolam, muscle relaxants or sleep aids. Never sell or share prescription opioids. This is illegal. Store opioids in a secure place and out of reach of others (including children, family, friends and visitors). The last page of this document has been signed and retained as a CHART COPY. Signatures Patient Education Materials Diabetes Basics Medication Leaflets cefdinir, clopidogrel My discharge plan and instructions have been reviewed and explained to me and JOÃO Ch BRIGITTE D understand my current condition and have read and understand these discharge instructions. I have received a written copy of the plan/instructions. If I have questions, I am aware that I should contact my doctor. Patient/Chief Business Officer Signature: Date/Time: Relationship to Patient: Witness Name/Signature: Date[facility]Time[id number] Note Discharge Instructions Thank you for allowing [facility] to assist you with your healthcare needs. The following is importantdischarge information regarding your hospital visit. Your Care Team MEY MADDOX Your Diagnosis Diabetes Stroke What to do next Instructions From Your Doctor You had a stroke. Start taking plavix 75 daily and aspirin 81 daily. After 21 days take only plavix. We have given you a heart monitor to wear for 30 days. Please follow-up with [facility]. I was unable to find records of your insulin. Therefore I prescribed insulin for you. If you have insulin at home, feel free to resume your original regimen. We have added ezetimibe for your cholesterol. Continue to follow with your primary care provider. Follow Up Appointments Follow Up with [facility] Bed, [phone] When Within 1-2 days Why: Room 239 Follow Up with [facility] When In 3 weeks Why: [facility] [address] [place] [address] or [address] Where: Follow Up with MEY MADDOX When Within 3-7 days Why: Please call the office within 2 days to schedule a follow-up appointment. Where: [address] [facility] [place] [address]- The Following Activity and Diet Have Been Ordered for You Transfer of Care Activity - Ordered -- Activity As Tolerated, 03/14/23 15:10:00 EST Transfer of Care Diet - Ordered -- Type of Diet: Regular Diet, 03/14/23 15:10:00 EST The Following Equipment Has Been Ordered for You No qualifying data available. The Following Treatments Have Been Ordered for You Discharge Labs Transfer of Care Labwork - Ordered -- BMP, monitor on lisinopril, follow-up within: 1 week, Results Notify to: MEY MADDOX, 03/14/23 15:10:00 EST Discharge Radiology No qualifying data available. Other Therapies Discharge Event Monitor Instructions - Ordered -- 03/14/23 15:10:50 EST, You have been ordered mobile outpatient telemetry. You should receive a device in the mail with further instructions. If you have not received a device within 7 days after discharge, please call [facility] at [phone]. Transfer of Care OT - Ordered -- Reason for therapy: Stroke, 03/14/23 15:10:00 EST Transfer of Care PT - Ordered -- Reason for therapy: Stroke, 03/14/23 15:10:00 EST Post Acute Orders Transfer of Care Code Status - Ordered -- DNRCC-Arrest Do Not Intubate, Constant Order Transfer of Care Labwork - Ordered -- BMP, monitor on lisinopril, follow-up within: 1 week, Results Notify to: MEY MADDOX, 03/14/23 15:10:00 EST Transfer of Care Orders Electronically Signed By - Ordered -- 03/14/23 15:10:00 ESTTIANA KYLE DO Transfer of Care Prognosis - Ordered -- Fair, Patient Aware: Yes Transfer of Care Rehab Potential - Ordered -- Rehab potential fair, 03/14/23 15:10:22 EST Someone Will Contact You Regarding These Home Health Referrals No home referrals have been ordered for you. No one will call you. Allergies Crestor (Myalgia) Demerol HCl (SEVERE N/V) Epinephrine (SEVERE SHAKING) Iodine (HIVES) Medications Please ask your primary doctor or pharmacist before taking any other medication not listed, including over the counter drugs, herbal medications, vitamins and or supplements as they may interact withyour home medications. What How Much When Why Instructions Last Dose New acetaminophen 650 Milligram by mouth Every 6 hours as needed for Pain, scale 1-10 New acetaminophen (Tylenol 325 mg oral capsule) 650 Milligram by mouth Every 4 hours as needed for Temperature greater than 38.5 degrees C New acetaminophen (Tylenol) 650 Milligram in the rectum Every 4 hours as needed for Temperature greater than 38.5 degrees C New cefdinir (cefdinir 300 mg oral capsule) 1 cap by mouth Every 12 hours Duration: 1 Days Pickup at [facility] #[id number] New clopidogrel (Plavix 75 mg oral tablet) 1 tab(s) by mouth Once a day Duration: 30 Days Refills: 1 Pickup at [facility] #[id number] New ezetimibe (ezetimibe 10 mg oral tablet) 1 tab(s) by mouth Once a day Pickup at [facility] #[id number] New glucose (glucose 50% intravenous solution) 25 Milliliter IV Push As Directed as needed for Hypoglycemia New hydrALAZINE (hydrALAZINE 20 mg/ mL injectable solution) 0.5 Milliliter IV Push Every 4 hours as needed for Blood pressure control New insulin glargine (Lantus Solostar Pen 100 units/ mL 3 mL Pen) 15 unit(s) Subcutaneous Daily at bedtime Diabetes Pickup at [facility] #[id number] New insulin lispro (HumaLOG) (HumaLOG KwikPen 100 units/ mL injectable PEN) 5 unit(s) Subcutaneous Three (3) times a day with meals Diabetes Duration: 30 Days Hold if you eat less than 50% of your meal Pickup at [facility] #[id number] New melatonin (melatonin 3 mg oral tablet) 1 tab(s) by mouth Daily at bedtime as needed for Sleep New NIFEdipine (NIFEdipine 30 mg oral tablet, extended release) 1 tab(s) by mouth Once a day Duration: 30 Days please discontinue prescription for nifedipine 60. Decreased to 30 to allow for CANDI in addition given diabetes Pickup at [facility] #[id number] New pantoprazole (Protonix 40 mg oral enteric coated tablet) 1 tab(s) by mouth Once a day before a meal Duration: 30 Days Pickup at [facility] #[id number] Changed DME (DME MISCellaneous) See instructions Diabetes Pen needles, enough for 4 injections daily x 30 days. Any 4/ 5 mm pen needle in stock and covered by insurance is appropriate Pickup at [facility] #[id number] Changed lisinopril (lisinopril 5 mg oral tablet) 1 tab(s) by mouth Once a day Duration: 30 Days Pickup at [facility] #[id number] Unchanged aspirin (aspirin 81 mg oral tablet, chewable) 1 tab(s) by mouth Every day Duration: 90 Days Unchanged atorvastatin (atorvastatin 80 mg oral tablet) 1 tab(s) by mouth Once a day Duration: 90 Days Unchanged bisoprolol (bisoprolol 5 mg oral tablet) 1 tab(s) by mouth Once a day Pharmacy Information [facility] #[id number]: [address] [place], [place] [id number] [phone] What How Much When Comments Stop Taking ascorbic acid (Vitamin C 500 mg oral tablet) 1 tab(s) by mouth Once a day Stop Taking cholecalciferol (Vitamin D3 125 mcg (5000 intl units) oral capsule) 1 cap by mouth Once a day Stop Taking glucagon (Gvoke HypoPen One Pack 0.5 mg/ 0.1 mL subcutaneous solution) 0.1 Milliliter Subcutaneous As Directed as needed for for low blood sugar Stop Taking insulin aspart-insulin aspart protamine (Novolog Mix 70/ 30) (NovoLOG Mix 70/ 30 FlexPen 3 mL Pen) 14 unit(s) Subcutaneous Two (2) times a day sliding scale up to 14 units BID IF BGT <150 no insulin BGT 150-200 take 4 units BGT 201-250 take 6 units BGT 251-300 take 8 units BGT 301-350 take 10 units BGT 351-400 take 12 units BGT 401 or higher take 14 units Stop Taking vitamin E (vitamin E 400 intl units oral capsule) 1 cap by mouth Every day Stop Taking zinc citrate (zinc citrate 50 mg oral capsule) Please take this list to your next doctor s visit. Bring all medications you take, including over the counter medications, herbals and other supplements with you to your doctor s visit. Patients and families are reminded to discard old lists and to update any records with all medication providers or retail pharmacies. Additional Information VACCINATE! IT SAVES LIVES! Members of the community who have not yet received the COVID-19 vaccine and would like to receive it can visit one of [facility] vaccine clinics. There are many vaccine clinic locations within the [facility]. For locations and available times, please visit [email or web address] It is important to note that some COVID mobile vaccine clinics are held outdoors and may be canceled in rainy or stormy conditions. To learn more about pediatric vaccinations (ages 5-11), we invite you to visit the [facility] webpage. [email or web address]/[email or web address] [email or web address] learn more about the COVID-19 vaccine, we invite you to visit the CDC website for a list of frequently asked questions.https://www.cdc.gov/coronavirus/2019-ncov/vaccines/faq.html [facility] Patient Portal Access Instructions: Stay connected with your healthcare team and access your personal medical information anytime with the [facility] Patient Portal. Please follow the directions below to create your [facility] account: 1.Access the email account you provided upon registration to the hospital/physician office.2.Look for an invitation email from [facility].3.Open the email and access the invitation link: AcceptInvitation to [facility].4.Fill in the required christian to create your account. To access your account, visit [facility]. Click the blue button labeled Access Patient Portal and then log in with the username and password that you created in the steps above. You will be able to view your test results, lab results, a summary of your visits, upcoming appointments and more. There is also a convenient messaging option where you can send secure messages to your p rovider. In addition, you will have the ability to download any documents or summaries to your computer and/or send the information securely to a physician. Remember that your healthcare information is confidential, so carefully consider who you will allowto register on the [facility] Patient Portal for access to your information. You can also access the [facility] Patient Portal on the [employer] ricco. Simply click on Patient Portal and then log into your account. If you would like to receive a full copy of your medical records, please contact the [facility] Medical Records Department by calling [phone], Sunday through Sunday between 8 a.m. and 4:30 p.m. HOW TO SAFELY DISPOSE OF PRESCRIPTION MEDICATIONS Please use one of the following methods to safely dispose of your unused medications. 1.Use a drug disposal kit: the drug disposal pouch allows you to safely discard your old and unuseddrugs. Ask your nurse to give you one when you are discharged.2.Visit a local take-back location: Many local pharmacies and police departments have programs that collect old and unwanted prescriptiondrugs. Call your local pharmacy or go to http://Crocs.[employer]Pharma/7M8Dq2v to find one close to you.3.Make use of household items: Use cat litter or old coffee grounds to dispose medications if other options arenot available. Mix your drugs with these household products, seal them in an airtight container andthrow it into the garbage. Call [facility]: [phone] to be sure your drugs can be disposed of in this way. Some medicines may require a different approach.4.Never flush your medications down the toilet. IF YOU HAVE BEEN PRESCRIBED AN OPIOID FOR PAIN If you have been prescribed an opioid (such as hydrocodone, oxycodone or morphine), it is critical to understand the possible side effects and risks of opioid pain medications. Even when taken as directed, opioids can have several side effects including: Tolerance, meaning you might need to take more of a medication for the same pain relief. Nausea, vomiting and/or constipation. Sleepiness, dizziness, dry mouth, confusion, depression or itching. Physical dependence, meaning you have withdrawal symptoms when a medication is stopped, can develop within a few days. KNOW YOUR RESPONSIBILITIES It is important to know exactly how much and how often to take the opioid pain medications you are prescribed. Never take opioids in higher amounts or more often than prescribed. Do not combine opioids with alcohol or other drugs that cause drowsiness, such as benzodiazepines, also known as benzos, including diazepam and alprazolam, muscle relaxants or sleep aids. Never sell or share prescription opioids. This is illegal. Store opioids in a secure place and out of reach of others (including children, family, friends and visitors). The last page of this document has been signed and retained as a CHART COPY. Signatures Patient Education Materials Medication Leaflets My discharge plan and instructions have been reviewed and explained to me and I,ALEXUS MOYER understand my current condition and have read and understand these discharge instructions. I have received a written copy of the plan/instructions. If I have questions, I am aware that I should contact my doctor. 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 Unrevealing echocardiogram, unrevealing 48-hour Holter monitor. Patient wasstable on aspirin and statin until her presentation this hospitalization. On arrival to [facility] patient was hypertensive in the 180s. Laboratory data revealed hyperglycemia with blood sugar of 238. Urinalysis showed evidence of UTI with moderate leukocyte Estrace, loaded WBCs and trace bacteria. Chest x-ray on admission without acute findings. Patient was transferred to [place] for neurology consultation. She was determined not to be a tPA candidate due to unknown last known well time at 9 PM the night before. On arrival to [facility], neurology was consulted. CT head completed in [facility] shows no acute pathology. MRA head limited however no definite large vessel occlusion. MRI neck shows left vertebral artery dominance, both vertebral arteries are patent. Questionable mild stenosis of the proximal left ICA (already known) MRI brain shows an acute left thalamic lacunar infarct A1c 9.6 Cholesterol 208, triglycerides 68, HDL 48, LDL 146 Echocardiogram completed shows an EF of 60 to 65% with normal wall motion. Mild AV stenosis. Troponins negative x 3 Liver enzymes with hypoalbuminemia otherwise unremarkable, electrolytes unremarkable. CBC unremarkable Given findings showing a new left thalamic lacunar infarct, neurology is recommending a 30-day monitoring coordinator on discharge, DAPT x 21 days then monotherapy with Plavix. Follow-up with neurology. Aggressive lipid management which can be continued as outpatient. Continue to titrate CANDI inhibitor as o utpatient. With regards to urinary tract infection, Patient was treated with ceftriaxone. Currently patient is planning on rehab at [facility] Allergies Crestor (Myalgia) Demerol HCl (SEVERE N/V) Epinephrine (SEVERE SHAKING) Iodine (HIVES) Procedures Echo Summary: 1. Left ventricle: The cavity size is normal. Wall thickness is mildly increased. Cannot exclude atypical strain pattern due to amyloidosis Strain Value is Reduced Systolic function is normal. The estimated ejection fractionis 60-65%. Wall motion is normal; there are no regional wall motion abnormalities. Unable to assess diastolic function. 2. Aortic valve: Transvalvular velocity is minimally increased. There is mild stenosis. The mean systolic gradient is 11 mm Hg. The peak systolic gradient is 20 mm Hg. The LVOT to aortic valve VTI ratio is 0.36. 3. Mitral valve: The annulus is moderately calcified. The leaflets are mildly thickened. There is mild, 1+ regurgitation. 4. Right ventricle: The RV systolic pressure by Doppler is 24 mm Hg. 5. Right atrium: The estimated right atrial pressure is 3 mm Hg. Consults Consult to Physician - Ordered -- 03/10/23 18:21:00 STIVEN CORRALES CHARLES A MD, Routine, Concern for CVA Imaging Results and Diagnostics MRI Brain w/o Contrast Result Date: March 12, 2023 Verified By: ADELINE ARNOLD MD CLINICAL STATEMENT: IMPRESSION: Limited examination. Acute left thalamic lacunar infarct. Volume loss andsmall vessel ischemic disease. MRA Neck w/o Contrast Result Date: March 12, 2023 Verified By: ADELINE ARNOLD MD CLINICAL STATEMENT: IMPRESSION: Limited examination. Questionable mild stenosis of the proximal leftinternal carotid artery. MRA Head w/o Contrast Result Date: March 12, 2023 Verified By: ADELINE ARNOLD MD CLINICAL STATEMENT: IMPRESSION: Limited examination. No definite large vessel occlusion Objective Vitals and Measurements T: 36.3 C (Oral) TMIN: 36.3 C (Oral) TMAX: 36.9 C (Oral) HR: 68(Monitored) RR: 18 BP: 116/51 SpO2: 98% Weight Dosing Weight: 66.8 kg (03/10/23) Please see today's progress note Code Status Code Status - Ordered -- 03/10/23 18:17:00 EST, DNRCC-Arrest Do Not Intubate, Constant Order Admission Date 03/10/23 Discharge Date 03/14/23 Patient Instructions You had a stroke. Start taking plavix 75 daily and aspirin 81 daily. After 21 days take only plavix. We have given you a heart monitor to wear for 30 days. Please follow[facility]up with [facility]. I was unable to find records of your insulin. Therefore I prescribed insulin for you. If you have insulin at home, feel free to resume your original regimen. We have added ezetimibe for your cholesterol. Continue to follow with your primary care provider. Medications New Prescription [id number] Milligram by mouth every 6 hours as needed Pain, scale 1-10. acetaminophen (Tylenol 325 mg oral capsule)650 Milligram by mouth every 4 hours as needed Temperature greater than 38.5 degrees C. acetaminophen (Tylenol)650 Milligram in the rectum every 4 hours as needed Temperature greater than38.5 degrees C. cefdinir (cefdinir 300 mg oral capsule)1 cap by mouth every 12 hours for 1 Days. Refills: 0. clopidogrel (Plavix 75 mg oral tablet)1 tab(s) by mouth once a day for 30 Days. Refills: 1. ezetimibe (ezetimibe 10 mg oral tablet)1 tab(s) by mouth once a day. Refills: 0. glucose (glucose 50% intravenous solution)25 Milliliter IV Push As Directed as needed Hypoglycemia. hydrALAZINE (hydrALAZINE 20 mg/mL injectable solution)0.5 Milliliter IV Push every 4 hours as needed Blood pressure control. insulin glargine (Lantus Solostar Pen 100 units/mL 3 mL Pen)15 unit(s) Subcutaneous daily at bedtime. Refills: 0. insulin lispro (HumaLOG) (HumaLOG KwikPen 100 units/mL injectable PEN)5 unit(s) Subcutaneous three (3) times a day with meals for 30 Days. Hold if you eat less than 50% of your meal. Refills: 0. melatonin (melatonin 3 mg oral tablet)1 tab(s) by mouth daily at bedtime as needed Sleep. NIFEdipine (NIFEdipine 30 mg oral tablet, extended release)1 tab(s) by mouth once a day for 30 Days. please discontinue prescription for nifedipine 60. Decreased to 30 to allow for CANDI in addition given diabetes. Refills: 0. pantoprazole (Protonix 40 mg oral enteric coated tablet)1 tab(s) by mouth once a day before a meal for 30 Days. Refills: 0. Changed DME (DME MISCellaneous)Pen needles, enough for 4 injections daily x 30 days. Any 4/ 5 mm pen needlein stock and covered by insurance is appropriate. Refills: 0. lisinopril (lisinopril 5 mg oral tablet)1 tab(s) by mouth once a day for 30 Days. Refills: 0. Unchanged aspirin (aspirin 81 mg oral tablet, chewable)1 tab(s) by mouth every day for 90 Days. Refills: 1. atorvastatin (atorvastatin 80 mg oral tablet)1 tab(s) by mouth once a day for 90 Days. Refills: 1. bisoprolol (bisoprolol 5 mg oral tablet)1 tab(s) by mouth once a day. Refills: 1. Discontinued ascorbic acid (Vitamin C 500 mg oral tablet)1 tab(s) by mouth once a day. cholecalciferol (Vitamin D3 125 mcg (5000 intl units) oral capsule)1 cap by mouth once a day. glucagon (Gvoke HypoPen One Pack 0.5 mg/0.1 mL subcutaneous solution)0.1 Milliliter Subcutaneous AsDirected as needed for low blood sugar. Refills: 1. insulin aspart-insulin aspart protamine (Novolog Mix 70/30) (NovoLOG Mix 70/30 FlexPen 3 mL Pen)14 unit(s) Subcutaneous two (2) times a day. sliding scale up to 14 units BID IF BGT <150 no insulinBGT 150-200 take 4 units BGT 201-250 take 6 units BGT 251-300 take 8 units BGT 301-350 take 10 units BGT 351-400 take 12 units BGT 401 or higher take 14 units. Refills: 3. vitamin E (vitamin E 400 intl units oral capsule)1 cap by mouth every day. zinc citrate (zinc citrate 50 mg oral capsule) Follow Up Follow Up with [facility] Swing Bed, [phone] When Within 1-2 days Why: Room 239 Follow Up with [facility] When In 3 weeks Why: [facility] [address], [place] [address] or Main Where: Follow Up with [facility] When Within 3-7 days Why: Please call the office within 2 days to schedule a follow-up appointment. Where: [address] [place] [id number]- Follow Up Appointments Transfer of Care OT - Ordered -- Reason for therapy: Stroke, 03/14/23 15:10:00 EST Transfer of Care PT - Ordered -- Reason for therapy: Stroke, 03/14/23 15:10:00 EST Follow Up Labs/Studies Discharge Labs Transfer of Care Labwork - Ordered -- BMP, monitor on lisinopril, follow-up within: 1 week, Results Notify to: [facility], 03/14/23 15:10:00 EST Discharge Studies No Follow-up Studies Discharge Diet Transfer of Care Diet - Ordered -- Type of Diet: Regular Diet, 03/14/23 15:10:00 EST Discharge Activity Transfer of Care Activity - Ordered -- Activity As Tolerated, 03/14/23 15:10:00 EST Condition on Discharge Stable Readmission Risk/Palliative Score LACE Score: 16 (03/12/23 08:13:00) Palliative Total Score: 1 (03/12/23 08:13:00) Discharge Disposition Rehab Information Provided To Patient Time Spent >35 minutes with >50% of the time spent counseling patient and/or coordinating care Digitally Signed by DANIEL MONTIEL DO on 03/14/2023 03:13 PM [id number] Note Date of Service 03/14/23 Chief Complaint Patient is an 87-year-old female with past medical history of type 2 diabetes on insulin at home, peripheral vascular disease, CKD stage II, HTN, 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 Unrevealing echocardiogram, unrevealing 48-hour Holter monitor. Patient wasstable on aspirin and statin until her presentation this hospitalization. On arrival to [facility] patient was hypertensive in the 180s. Laboratory data revealed hyperglycemia with blood sugar of 238. Urinalysis showed evidence of UTI with moderate leukocyte Estrace, loaded WBCs and trace bacteria. Chest x-ray on admission without acute findings. Patient was transferred to [place] for neurology consultation. She was determined not to be a tPA candidate due to unknown last known well time at 9 PM the night before. On arrival to [facility], neurology was consulted. CT head completed in [facility] shows no acute pathology. MRA head limited however no definite large vessel occlusion. MRI neck shows left vertebral artery dominance, both vertebral arteries are patent. Questionable mild stenosis of the proximal left ICA (already known) MRI brain shows an acute left thalamic lacunar infarct A1c 9.6 Cholesterol 208, triglycerides 68, HDL 48, LDL 146 Echocardiogram completed shows an EF of 60 to 65% with normal wall motion. Mild AV stenosis. Troponins negative x 3 Liver enzymes with hypoalbuminemia otherwise unremarkable, electrolytes unremarkable. CBC unremarkable Given findings showing a new left thalamic lacunar infarct, neurology is recommending a 30-day monitoring coordinator on discharge, DAPT x 21 days then monotherapy with Plavix. Follow-up with neurology. Aggressive lipid management which can be continued as outpatient. With regards to urinary tract infection, Patient was treated with ceftriaxone. Currently patient is planning on rehab at [facility] Subjective Patient seen and examined. Complaining of some left leg sciatica which has been present for many weeks. Otherwise no new acute events overnight. No fevers, chills, shortness of breath. Very talkative. Objective Vitals and Measurements T: 36.3 C (Oral) TMIN: 36.3 C (Oral) TMAX: 36.9 C (Oral) HR: 68(Monitored) RR: 18 BP: 116/51 SpO2: 98% Intake and Output 7AM Yesterday to 7AM Today Intake and Output (Last 24 hours) Intake Oral Intake 680.00 Output Stool Count 0.00 Urine Count 3.00 Total Summary Total Intake 680.00 Total Output 0.00 Fluid Balance 680.00 Physical Exam Constitutional - well nourished, alert, no gross deformities Head - atraumatic, normocephalic Eyes - Pupils equal, round, reactive to light, no conjunctival injection, extra ocular movements grossly intact, no scleral icterus Ears, Nose, and Throat - trachea midline no lesions, masses Respiratory - Clear to auscultation without rales, rhonchi, wheezing or diminished breath sounds Cardiovascular - regular rate and rhythm without murmurs. Normal S1 and S2. No cyanosis or edema Gastrointestinal (Abdomen) - Bowel sounds present. Soft, nontender without ascites, distention Musculoskeletal -able to move all extremities, did have some pain in left leg with motion. Left andright legs both appear slightly weak. Skin: Skin normal color, texture and turgor with no lesions or eruptions Weight Dosing Weight: 66.8 kg (03/10/23) Medications Medications (16) Active Scheduled: (10) aspirin 81 mg Chewable 81 mg 1 tab(s), Oral, Daily atorvastatin 80 mg tablet 80 mg 1 tab(s), Oral, qDay bisoprolol 5 mg tablet 5 mg 1 tab(s), Oral, qDay cefTRIAXone IVP syringe 1 gram(s) 10 mL, IV Push (INT), qDay clopidogrel 75 mg Tablet 75 mg 1 tab(s), Oral, qDay heparin 5,000 units/mL (1 mL) vial 5,000 unit(s) 1 mL, Subcutaneous, q8h insulin glargine 15 unit(s) 0.15 mL, Subcutaneous (INT), qHS insulin lispro 100 units/mL Soln (3 mL) Give 0-10 units/dose, Subcutaneous, TIDAC nifedipine 30 mg ER tablet (Procardia) 60 mg 2 tab(s), Oral, qDay pantoprazole 40 mg EC tablet 40 mg 1 tab(s), Oral, qDayAC Continuous: (0) PRN: (6) acetaminophen 325 mg Tablet 650 mg 2 tab(s), Oral, q6hr acetaminophen 325 mg Tablet 650 mg 2 tab(s), Oral, q4h acetaminophen 650 mg Suppository 650 mg 1 supp, Rectal, q4h dextrose 50% Solution Disp syringe 50 mL 12.5 gram(s) 25 mL, IV Push, AsDirected hydralazine 20 mg/mL (1mL) vial 10 mg 0.5 mL, IV Push, q4h melatonin 3 mg tablet 3 mg 1 tab(s), Oral, qHS Lab Results 03/13 05:57 WBC: 7.1 Hgb: 12.6 Hct: 38.2 Platelet: 264 Neutrophil %: 64.5 Glucose Level: 136 H Sodium Level: 141 Potassium Level: 4.0 BUN: 19.0 Creatinine Lvl (s): 0.66 Imaging Results and Diagnostics MRI Brain w/o Contrast Result Date: March 12, 2023 Verified By: ADELINE ARNOLD MD CLINICAL STATEMENT: IMPRESSION: Limited examination. Acute left thalamic lacunar infarct. Volume loss andsmall vessel ischemic disease. MRA Neck w/o Contrast Result Date: March 12, 2023 Verified By: ADELINE ARNOLD MD CLINICAL STATEMENT: IMPRESSION: Limited examination. Questionable mild stenosis of the proximal leftinternal carotid artery. MRA Head w/o Contrast Result Date: March 12, 2023 Verified By: ADELINE ARNOLD MD CLINICAL STATEMENT: IMPRESSION: Limited examination. No definite large vessel occlusion EKG No qualifying data available. Assessment/Plan Acute left thalamic lacunar infarct Proximal left ICA stenosis Chronic punctate left basal ganglia stroke Acute complicated urinary tract infection Type 2 diabetes, insulin-dependent Hypertension -> Patient day 4 of 5 of ceftriaxone. Can use cefdinir tomorrow if patient is ready for discharge today. Urine culture shows no significant growth. CBC shows no leukocytosis. No significant fevers. -> On discharge, DAPT +30-day heart monitor plus follow-up with neurology plus follow-up with PCP for lipid management. Continue atorvastatin 80, add ezetimibe -> Continue nifedipine for blood pressure control. -> With regards to diabetes, patient has been slightly hyperglycemic. Continue Lantus 15 nightly. Will add Humalog 4 3 times daily. Continue sliding scale. Recommend blood sugar log to PCP. DVT heparin Patient is DNR/DNI Okay to discharge when patient obtains bed. Digitally Signed by DANIEL MONTIEL DO on 03/14/2023 02:54 PM [id number] Note Date of Service 03/13/2023 Chief Complaint stroke Subjective Pt admitted for stroke. Today no new complaints. She is adamant about wanting to go to [facility] rehab. Objective Vitals and Measurements T: 36.5 C (Oral) TMIN: 36.4 C (Oral) TMAX: 36.8 C (Oral) HR: 61(Monitored) RR: 18 BP: 126/54 SpO2: 96% Intake and Output 7AM Yesterday to 7AM Today Intake and Output (Last 24 hours) Intake Oral Intake 480.00 Output Stool Count 0.00 Urine Count 4.00 Total Summary Total Intake 480.00 Total Output 0.00 Fluid Balance 480.00 Physical Exam general: well appearing,sitting up in bed appears comfortable neuro: alert, oriented, answering questions appropriately. cardiac: rrr lungs: ctabl abdomen: non tender, normal bowel sounds. Weight Dosing Weight: 66.8 kg (03/10/23) Medications Medications (16) Active Scheduled: (10) aspirin 81 mg Chewable 81 mg 1 tab(s), Oral, Daily atorvastatin 80 mg tablet 80 mg 1 tab(s), Oral, qDay bisoprolol 5 mg tablet 5 mg 1 tab(s), Oral, qDay cefTRIAXone IVP syringe 1 gram(s) 10 mL, IV Push (INT), qDay clopidogrel 75 mg Tablet 75 mg 1 tab(s), Oral, qDay heparin 5,000 units/mL (1 mL) vial 5,000 unit(s) 1 mL, Subcutaneous, q8h insulin glargine 15 unit(s) 0.15 mL, Subcutaneous (INT), qHS insulin lispro 100 units/mL Soln (3 mL) Give 0-10 units/dose, Subcutaneous, TIDAC nifedipine 30 mg ER tablet (Procardia) 60 mg 2 tab(s), Oral, qDay pantoprazole 40 mg EC tablet 40 mg 1 tab(s), Oral, qDayAC Continuous: (0) PRN: (6) acetaminophen 325 mg Tablet 650 mg 2 tab(s), Oral, q6hr acetaminophen 325 mg Tablet 650 mg 2 tab(s), Oral, q4h acetaminophen 650 mg Suppository 650 mg 1 supp, Rectal, q4h dextrose 50% Solution Disp syringe 50 mL 12.5 gram(s) 25 mL, IV Push, AsDirected hydralazine 20 mg/mL (1mL) vial 10 mg 0.5 mL, IV Push, q4h melatonin 3 mg tablet 3 mg 1 tab(s), Oral, qHS Lab Results 03/13 05:57 WBC: 7.1 Hgb: 12.6 Hct: 38.2 Platelet: 264 Neutrophil %: 64.5 Glucose Level: 136 H Sodium Level: 141 Potassium Level: 4.0 BUN: 19.0 Creatinine Lvl (s): 0.66 EKG No qualifying data available. Assessment/Plan Acute Stroke MRI MRA reviewed and verified stroke. DAPT statin on d/c Patient is medically clear for discharge to SNF. Right lower extremity numbness Pt early 03/12 am noted new RLE numbness tingling. I was trying to identify whether it was dermatomal related and she had trouble explaining symptoms. Shes had similar RLE symptoms and has history ofarthritis lumbar spine. Suspect this is related to current stroke shes already admitted for eval. Will refrain from any additional imaging lumbar spine at this time and continue current w/u for stroke. Suspect this could improve with PT/OT. Pt can follow up outpt for potential radicular symptoms. Acute complicated urinary tract infection due to unknown organism Cultures negative. They were collected after starting antibiotics. I think still worth while treating patient for an infection given initial urine with limited squam cells. Complete ceftriaxone 5d course. Transition to oral on discharge. Insulin dependent type 2 diabetes with hyperglycemia Glycemic control improving. Continue current regimen. Peripheral vascular disease statin, asa, plavix Essential Hypertension Controlled. Continue current regimen. CKD stage II GERD continue ppi dnr dni code status Pt is medically clear for discharge to SNF Digitally Signed by KOMAL ESTRADA MD on 03/13/2023 05:47 PM Digitally Signed by KOMAL ESTRADA MD on 03/13/2023 05:48 PM [id number] Neurology Progress note Date of Service 03/13/23 Chief Complaint Stroke Subjective Patient seen and examined without family present. Nursing reports no acute events overnight or any concerns at the present. Patient states that the weakness in her RUE is improved, that her right lower leg is chronically weak at her baseline. She reports she continues to have numbness and tingling in her right upper extremity. States that she had a headache earlier however that it is subsided. She denies any nausea or vomiting. No further dizziness. She denies any new complaints today. States that overall she feels better compared to when she came in. Hx stroke Apr 2021, reported no deficits from. Objective Vitals and Measurements T: 36.5 C (Oral) TMIN: 36.4 C (Oral) TMAX: 36.8 C (Oral) HR: 65(Monitored) RR: 18 BP: 147/59 SpO2: 97% Intake and Output 7AM Yesterday to 7AM Today Intake and Output (Last 24 hours) Intake Oral Intake 480.00 Output Stool Count 0.00 Urine Count 4.00 Total Summary Total Intake 480.00 Total Output 0.00 Fluid Balance 480.00 Physical Exam Mental Status: Orientation: oriented to person, [facility], and [facility] Language: normal fluency, normal simple comprehension Speech: mildly dysarthric Cranial Nerves: Pupils: 4mm -> 2mm bilaterally Visual Christian: full to confrontation bilaterally CN III, IV, : EOMI. No nystagmus CN V: normal light touch and temp sensation in V1, V2, V3, bilaterally. CN VII: face symmetric at rest. Facial muscle strength intact CN VIII: auditory acuity intact to bedside testing Sensation: Light touch: reduced in RUE distally Motor: Involuntary movements: none Strength: LUE: 5/5 proximally, 5/5 distally RUE: 5/5 proximally, 5/5 distally LLE: 4+/5 proximally, 5/5 distally RLE: -4/5 proximally, 5/5 distally Reflexes: R L B 2 2 BR 2 2 P 2 2 Toes eq Coordination: [id number]-ottscn movements intact bilaterally Weight Dosing Weight: 66.8 kg (03/10/23) Medications Medications (16) Active Scheduled: (10) aspirin 81 mg Chewable 81 mg 1 tab(s), Oral, Daily atorvastatin 80 mg tablet 80 mg 1 tab(s), Oral, qDay bisoprolol 5 mg tablet 5 mg 1 tab(s), Oral, qDay cefTRIAXone IVP syringe 1 gram(s) 10 mL, IV Push (INT), qDay clopidogrel 75 mg Tablet 75 mg 1 tab(s), Oral, qDay heparin 5,000 units/mL (1 mL) vial 5,000 unit(s) 1 mL, Subcutaneous, q8h insulin glargine 15 unit(s) 0.15 mL, Subcutaneous (INT), qHS insulin lispro 100 units/mL Soln (3 mL) Give 0-10 units/dose, Subcutaneous, TIDAC nifedipine 30 mg ER tablet (Procardia) 60 mg 2 tab(s), Oral, qDay pantoprazole 40 mg EC tablet 40 mg 1 tab(s), Oral, qDayAC Continuous: (0) PRN: (6) acetaminophen 325 mg Tablet 650 mg 2 tab(s), Oral, q6hr acetaminophen 325 mg Tablet 650 mg 2 tab(s), Oral, q4h acetaminophen 650 mg Suppository 650 mg 1 supp, Rectal, q4h dextrose 50% Solution Disp syringe 50 mL 12.5 gram(s) 25 mL, IV Push, AsDirected hydralazine 20 mg/mL (1mL) vial 10 mg 0.5 mL, IV Push, q4h melatonin 3 mg tablet 3 mg 1 tab(s), Oral, qHS Lab Results 03/13 05:57 WBC: 7.1 Hgb: 12.6 Hct: 38.2 Platelet: 264 Neutrophil %: 64.5 Glucose Level: 136 H Sodium Level: 141 Potassium Level: 4.0 BUN: 19.0 Creatinine Lvl (s): 0.66 Imaging Results and Diagnostics MRI Brain w/o Contrast Result Date: March 12, 2023 Verified By: ADELINE ARNOLD MD CLINICAL STATEMENT: IMPRESSION: Limited examination. Acute left thalamic lacunar infarct. Volume loss andsmall vessel ischemic disease. MRA Neck w/o Contrast Result Date: March 12, 2023 Verified By: ADELINE ARNOLD MD CLINICAL STATEMENT: IMPRESSION: Limited examination. Questionable mild stenosis of the proximal leftinternal carotid artery. MRA Head w/o Contrast Result Date: March 12, 2023 Verified By: ADELINE ARNOLD MD CLINICAL STATEMENT: IMPRESSION: Limited examination. No definite large vessel occlusion Assessment/Plan IMPRESSION Acute left thalamic lacunar infarct UTI Hx stroke PLAN: -MRI brain showed acute Left thalamic lacunar infarct -30-day CardioNet on discharge -Agree with DAPT dual therapy, Plavix for 21days then monotherapy, if medically safe to do so. -MRA H/N reviewed. -TTE EF 60 to 65%,bubble study not evaluated. -Lab's reviewed, hemoglobin A1c 9.6. Cholesterol 206, LDL 146, urinalysis moderate leuk est wbc loaded. General guidelines for long-term vascular risk factor modification in the setting of a stroke: SBP goal: < 130 as tolerated Goal Total cholesterol: < LDL: 70 HbA1c: < 7 -Would suggest a PPI also be given due to her advanced age. -Recommend statin, lipitor 80mg QHS. Tolerating w/o SE. Discussed SE. -Attempted to call son Bryant (POA), asked to call back later. -GI/DVT prophylaxis per primary team -PT/OT/ST per recommendations -Fall precautions -Further medical management per medical team -Case discussed with hospitalist medical team -Discussed plan with patient, understood. -Provided stroke education -Follow up with Neurology in 4-6 weeks as outpatient Discussed plan with collaborating physician Dr. Ayon, who agrees with plan Independently spent 50 minutes with patient Probable stroke etiology/risk factors and long-term prevention were discussed. Common and serious side effects of preventative medications were discussed, including risks of bleeding with antiplatelet agents, and risks of myalgias with statins. High risk acute neurologic condition due to high chance of recurrent stroke/TIA without intervention. Multiple other comorbidities present as well, including prior stroke, numerous vascular risks. Will sign off. Please reach out if you have any questions or concerns. Digitally Signed by MONO POON on 03/13/2023 05:35 PM Digitally Signed by MONO POON on 03/13/2023 05:36 PM [id number] Note Chief Complaint: Transition plan Transitional Action Points I did speak with patient regards to transitioning to facility for further rehab on discharge related to CVA and weakness she was in agreements to [facility] We will update community mental health social worker to send referral I did answer questions in regards to PT/OT regimen, length of stay approximately 2 weeks Assessment/Plan CVA Ataxia Vertigo Needing assistance with ADLs Physical deconditioning Readmission Risk Points Age greater than 65 Aortic atherosclerosis Brachial neuritis CKD stage III secondary to diabetes Cervical lymphadenopathy DDD (degenerative disc disease), lumbar Diabetic nephropathy Diabetic peripheral vascular disease Dysarthria Hypertension associated with type 2 diabetes mellitus History of Present Illness 87-year-old female here for acute CVA, ataxia, vertigo. MRI did show left thalamic lacunar infarct.Patient with no hospitalizations in the past year. Patient is from home and independent at baseline. PT OT recommending inpatient therapy at discharge. Review of Symptoms General: Denies fever or chills Musculoskeletal: Denies injury Neuro: Denies dizziness Physical Exam General: No acute distress, laying in bed Musculoskeletal: Weakness present Neurological: No tremors or focal deficit Psych: mood cooperative, calm Vitals Signs(Last 24 hrs)__Last Charted Minimum Maximum Temp36.4(MAR 13 04:15)36.4(MAR 13:15)36.7(MAR 12 11:00) Heart Rate66(MAR 13:15)66(MAR 13 04:15)80(MAR 12 11:00) Resp Rate18(MAR 13 04:15)18(MAR 12 11:00)20(MAR 12 19:57) MHE762(MAR 13:15)115(MAR 12 23:05)128(MAR 12 15:44) DBP68(MAR 13 04:15)L 53(MAR 12 23:05)H 93(MAR 12 11:00) Problem List/ Past Medical History Aortic atherosclerosis Atherosclerosis of coronary artery without angina pectoris BMI 26.0-26.9,adult Brachial neuritis CKD stage 3 secondary to diabetes COVID-19 Carotid stenosis Cervical lymphadenopathy Change in voice Constipation DDD (degenerative disc disease), lumbar Depression, major, in remission Diabetes mellitus with microalbuminuria Diabetic nephropathy Diabetic peripheral vascular disease Diverticulosis Dysarthria Edema Encounter for examination following treatment at hospital Encounter for removal of sutures Eustachian tube dysfunction Facial droop Foot drop, right Frequent falls GERD (gastroesophageal reflux disease) Globus sensation Hx of completed stroke Hypercholesterolemia Hypertension associated with type 2 diabetes mellitus 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 heart disease without CHF 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 nephropathy LVH (left ventricular hypertrophy) Left knee pain FCI current use of insulin Low back pain Lumbar spinal stenosis Microalbuminuria Need for hepatitis C screening test Neuropathy, diabetic Nocturnal leg cramps Non-tobacco user Osteoarthritis Overweight Peripheral neuropathy Peripheral vascular disease Right ear pain Right leg weakness Risk for falls Rosacea Sacral fracture Screening for osteoporosis Somatic dysfunction of cervical region Somatic dysfunction of lumbar region Somatic dysfunction of pelvic region Somatic dysfunction of rib region Somatic dysfunction of sacral region Somatic dysfunction of thoracic region Stage 3a chronic kidney disease (CKD) Syncope Thyroid nodule Type 2 diabetes mellitus with hyperlipidemia Uncontrolled type 2 diabetes mellitus with hyperglycemia, with long-term current use of insulin Vitiligo No qualifying data available. Procedure/ Surgical History Laminectomy and discectomy: 11/22/12 Cholecystectomy: 11/23/03 Appendectomy: 07/21/73 Laparotomy: 07/21/73 Hysterectomy Mastectomy of left breast Medication List Active Medications Ordered acetaminophen: 650 mg, 2 tab(s), Oral, q6hr, PRN: Pain, scale 1-10. acetaminophen: 650 mg, 2 tab(s), Oral, q4h, PRN: Temperature greater than 38.5 degrees C. acetaminophen: 650 mg, 1 supp, Rectal, q4h, PRN: Temperature greater than 38.5 degrees C. aspirin: 81 mg, 1 tab(s), Oral, Daily. atorvastatin: 80 mg, 1 tab(s), Oral, qDay. bisoprolol: 5 mg, 1 tab(s), Oral, qDay. cefTRIAXone: 1 gram(s), 10 mL, 120 mL/hr, IV Push (INT), qDay. clopidogrel: 75 mg, 1 tab(s), Oral, qDay. glucose: 12.5 gram(s), 25 mL, IV Push, AsDirected, PRN: Hypoglycemia. heparin: 5,000 unit(s), 1 mL, Subcutaneous, q8h. hydrALAZINE: 10 mg, 0.5 mL, IV Push, q4h, PRN: Blood pressure control. insulin glargine: 15 unit(s), 0.15 mL, 0 mL/hr, Subcutaneous (INT), qHS. insulin lispro (HumaLOG): Give 0-10 units/dose, Subcutaneous, TIDAC. melatonin: 3 mg, 1 tab(s), Oral, qHS, PRN: Sleep. NIFEdipine: 60 mg, 2 tab(s), Oral, qDay. pantoprazole: 40 mg, 1 tab(s), Oral, qDayAC. Prescribed aspirin: 81 mg, 1 tab(s), Oral, Daily, for 90 day(s), 90 tab(s), 1 Refill(s). atorvastatin: 80 mg, 1 tab(s), Oral, qDay, for 90 day(s), 90 tab(s), 1 Refill(s). bisoprolol: 5 mg, 1 tab(s), Oral, qDay, 90 tab(s), 1 Refill(s). DME: See Instructions, dx E11.65, Z79.4; check BGT 4 times per day, injects insulin 4x per day; dispense 150 test strips, 11 refills, 150 EA, 11 Refill(s). DME: See Instructions, dx E11.65; doses inslulin 4x/day, dispense 150 pen needles (5mm 31 G) with 11 refills., 150 EA, 11 Refill(s). DME: See Instructions, Dexcom G7 gas inspector, 1 EA, no refills., 1 EA, 0 Refill(s). DME: See Instructions, Dexcom G7 sensors, quantity 9, 90 day supply, 3 refills use as directed apply 1 sensor every 10 days, 9 EA, 3 Refill(s). glucagon: 0.5 mg, 0.1 mL, Subcutaneous, AsDirected, PRN: for low blood sugar, 2 EA, 1 Refill(s). insulin aspart-insulin aspart protamine (Novolog Mix 70/30): 14 unit(s), Subcutaneous, BID, sliding scale up to 14 units BID IF BGT <150 no insulin BGT 150-200 take 4 units BGT 201-250 take 6 units BGT 251-300 take 8 units BGT 301-350 take 10 units BGT 351-400 take 12 units BGT 401 or higher take 14 units, 15 mL, 3 Refill(s). lisinopril: 40 mg, 1 tab(s), Oral, qDay, for 90 day(s), 90 tab(s), 1 Refill(s). Documented ascorbic acid: 500 mg, 1 tab(s), Oral, qDay, 30 tab(s), 0 Refill(s). cholecalciferol: 125 mcg, 1 cap(s), Oral, qDay, 100 cap(s), 0 Refill(s). vitamin E: 400 International_Unit, 1 cap(s), Oral, Daily, 0 Refill(s). zinc citrate: 0 Refill(s). Medications Inactivated in the Last 72 Hours aspirin: 324 mg, 4 tab(s), Oral, Once. aspirin: Miscellaneous, Once. atorvastatin: 40 mg, 1 tab(s), Oral, qDay. cefTRIAXone: 2 gram(s), 200 mL/hr, IV Piggyback, Once. enalapril: 0.625 mg, 0.5 mL, IV Push, Once. enalapril: Miscellaneous, Once. insulin lispro (HumaLOG): 8 unit(s), 0.08 mL, Subcutaneous, now. lisinopril: 40 mg, 2 tab(s), Oral, qDay. LORazepam: 0.5 mg, 0.25 mL, IV Push, Once. LORazepam: 1 mg, 0.5 mL, IV Push, Once. NIFEdipine: 30 mg, 1 tab(s), Oral, qDay. Sodium Chloride 0.9% intravenous solution: 1,000 mL, IV Bolus, Once. Allergies Crestor (Myalgia) Demerol HCl (SEVERE N/V) Epinephrine (SEVERE SHAKING) Iodine (HIVES) Social Hx Alcohol Risk Assessment: Denies Alcohol Use; Details: Use: Never. 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 2 daughters are out of state. Spouse Name: Rush. Details: OTher risks in environment: no current smoke exposure. Nutrition/Health Details: Caffeine intake amount: 3 servings daily. Substance Abuse Risk Assessment: Denies Substance Abuse; Details: Use: Never. Tobacco Details: Tobacco Use: Never (less than 100 in lifetime). Family Medical Hx Mother: Cancer; Diabetes mellitus; Heart disease Father: Cancer; Heart disease Sister (Kamini): Diabetes mellitus Code Status Code Status - Ordered -- 03/10/23 18:17:00 EST, DNRCC-Arrest Do Not Intubate, Constant Order Medications reviewed and up to date I Viviana Mcghee RN am scribing for Michaelle Cui NP, in the presence of Michaelle Cui. I Michaelle Cui NP personally preformed the services described in this documentation as described by Viviana Mcghee RN in my presence and it is both accurate and complete. This document is transcribed using voice recognition software that may contain typographical errors. Digitally Signed by MICHAELLE CUI on 03/13/2023 10:30 AM [id number] Note ORIGINAL HISTORY: Stroke, left facial droop, aphasia COMPARISON: 03 May 2021 TECHNIQUE: 1. Sagittal T1-weighted images. 2. Axial T2-weighted and T2*-weighted images. 3. Axial FLAIR images. 4. Axial diffusion-weighted images with ADC map. FINDINGS: The study is limited by motion and positioning. There is a 1 cm focus of restricted diffusion in the lateral left thalamus. There is mild associated T2 hyperintensity. The ventricles and sulci are mildly enlarged. There are no abnormal intra or extra-axial fluid collections. There [id number] punctate and nodular T2 hyperintensities in the cerebral white matter. Dasilva IMPRESSION: Limited examination. 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 Interpreted by: Adeline Arnold MD Preliminary Report By: Adeline Arnold MD Electronically signed By Adeline Arnold MD Dictated Date: 03/12/2023 2:40:59 PM Prelim Date: 03/12/2023 2:42:45 PM Sign Date: 03/12/2023 2:42:45 PM Ordering Provider: [facility]11-27-2023 Note ORIGINAL HISTORY: Stroke COMPARISON: No TECHNIQUE: 2-D pzbz-is-nomcgr magnetic resonance angiography of the vessels of the neck, with 3-D post acquisition processing and with results displayed in source images and volume rendered images. Stenosis is calculated using NASCET criteria. FINDINGS: Study is limited by motion. There is questionable mild stenosis at the proximal left internal carotid artery, although this may be due in part to artifact. The left vertebral artery is dominant. Both vertebral artery are patent with antegrade flow. IMPRESSION: Limited examination. Questionable mild stenosis of the proximal left internal carotid artery. Interpreted by: Adeline Arnold MD Preliminary Report By: Adeline Arnold MD Electronically signed By Adeline Arnold MD Dictated Date: 03/12/2023 2:49:13 PM Prelim Date: 03/12/2023 2:50:48 PM Sign Date: 03/12/2023 2:50:48 PM Ordering Provider: [facility]11-27-2023 Note ORIGINAL HISTORY: Stroke COMPARISON: No TECHNIQUE: 3D bdsy-eu-kuvnqn angiography of the head with 3D post acquisition processing and with results displayed in source and volume rendered images. FINDINGS: The study is degraded by motion. Within the limits of the examination no large vessel occlusion is identified. The right vertebral artery is small and incompletely visualized. IMPRESSION: Limited examination. No definite large vessel occlusion Interpreted by: Adeline Arnold MD Preliminary Report By: Adeline Arnold MD Electronically signed By Adeline Arnold MD Dictated Date: 03/12/2023 2:44:26 PM Prelim Date: 03/12/2023 2:49:02 PM Sign Date: 03/12/2023 2:49:02 PM Ordering Provider: [facility]11-27-2023 Note* Exam Date Time Procedure Performing Provider Status 03/12/23 10:18 AM Echocardiogram, Adul t with Bubble Study- Auth (Verified) [facility] 11-27-2023 Note Date of Service 03/12/2023 Chief Complaint rue tingling/numbness Subjective Doing well today though noted some right lower extremity numbness that occurred ambulating from therestroom to her bed. No nausea, vomiting, diarrhea. Urinating without issue. Objective Vitals and Measurements T: 36.4 C (Oral) TMIN: 36.4 C (Oral) TMAX: 36.9 C (Oral) HR: 67(Monitored) RR: 18 BP: 158/64 SpO2: 94% Intake and Output 7AM Yesterday to 7AM Today Intake and Output (Last 24 hours) Intake Oral Intake 150.00 Output Total Summary Total Intake 150.00 Total Output 0.00 Fluid Balance 150.00 Physical Exam general: well appearing, resting in bed comfortably cardiac: rrr lungs: ctabl abdomen: non tender, normal bowel sounds. Weight Dosing Weight: 66.8 kg (03/10/23) Medications Medications (16) Active Scheduled: (10) aspirin 81 mg Chewable 81 mg 1 tab(s), Oral, Daily atorvastatin 80 mg tablet 80 mg 1 tab(s), Oral, qDay bisoprolol 5 mg tablet 5 mg 1 tab(s), Oral, qDay cefTRIAXone IVP syringe 1 gram(s) 10 mL, IV Push (INT), qDay clopidogrel 75 mg Tablet 75 mg 1 tab(s), Oral, qDay heparin 5,000 units/mL (1 mL) vial 5,000 unit(s) 1 mL, Subcutaneous, q8h insulin glargine 15 unit(s) 0.15 mL, Subcutaneous (INT), qHS insulin lispro 100 units/mL Soln (3 mL) Give 0-10 units/dose, Subcutaneous, TIDAC nifedipine 30 mg ER tablet (Procardia) 60 mg 2 tab(s), Oral, qDay pantoprazole 40 mg EC tablet 40 mg 1 tab(s), Oral, qDayAC Continuous: (0) PRN: (6) acetaminophen 325 mg Tablet 650 mg 2 tab(s), Oral, q6hr acetaminophen 325 mg Tablet 650 mg 2 tab(s), Oral, q4h acetaminophen 650 mg Suppository 650 mg 1 supp, Rectal, q4h dextrose 50% Solution Disp syringe 50 mL 12.5 gram(s) 25 mL, IV Push, AsDirected hydralazine 20 mg/mL (1mL) vial 10 mg 0.5 mL, IV Push, q4h melatonin 3 mg tablet 3 mg 1 tab(s), Oral, qHS Lab Results 03/11 03:47 WBC: 6.9 Hgb: 12.5 Hct: 36.6 Platelet: 261 Neutrophil %: 60.9 Glucose Level: 82 Sodium Level: 141 Potassium Level: 4.0 BUN: 21.0 Creatinine Lvl (s): 0.69 EKG No qualifying data available. Assessment/Plan Acute Stroke RUE numbness and paresthesia from admit still persistent. Allergy to CT contrast dye. MRI MRA echo w/ bubble ordered. Neurology following. DAPT, statin dose increased to 80 per neuro recs. She has listed allergy to crestor but shes tolerating current statin dose w/o issue suspect crestor allergy listed is not true allergy. PT/OT assessment pending. Suspect d/c to SNF. Right lower extremity numbness Pt early 03/12 am noted new RLE numbness tingling. I was trying to identify whether it was dermatomal related and she had trouble explaining symptoms. Shes had similar RLE symptoms and has history ofarthritis lumbar spine. Suspect this is related to current stroke shes already admitted for eval. Will refrain from any additional imaging lumbar spine at this time and continue current w/u for stroke. Suspect this could improve with PT/OT. Pt can follow up outpt for potential radicular symptoms. Acute complicated urinary tract infection due to unknown organism Cultures negative. They were collected after starting antibiotics. I think still worth while treating patient for an infection given initial urine with limited squam cells. Complete ceftriaxone 5d course. Transition to oral on discharge. Insulin dependent type 2 diabetes with hyperglycemia Glycemic control improving. Continue current regimen. Glucose reviewed 166,168,165,140 Peripheral vascular disease statin, asa, plavix Essential Hypertension Uncontrolled. Increased nifedepine today. CKD stage II GERD continue ppi dnr dni code status discharge likely 03/13 or 03/14 Digitally Signed by KOMAL ESTRADA MD on 03/12/2023 07:28 AM [id number] Note Chief Complaint Transition plan Transitional Action Points I did review physical therapy documentation, moderate assist recommending inpatient therapy at thistime Patient hospitalized with acute CVA No hospitalizations in the past 12 months Is from home independently at baseline She did states she is going to speak with her family, facility list was provided Assessment/Plan CVA Ataxia Vertigo Age-related debility Physical deconditioning Readmission Risk Points Age greater than 65 Aortic atherosclerosis Brachial neuritis CKD stage III secondary to diabetes Cervical lymphadenopathy DDD (degenerative disc disease), lumbar Diabetic nephropathy Diabetic peripheral vascular disease Dysarthria Hypertension associated with type 2 diabetes mellitus History of Present Illness Patient is an 87-year-old admitted for acute CVA, ataxia and vertigo. Has a pending MRI, TTE, MRA head neck. She was evaluated by physical and Occupational Therapy and they are recommending inpatientstay as she is a moderate assist. She is from home alone, is independent at baseline. She does utilize a front wheel walker and cane. Reports 2 falls the past year. Review of Symptoms General: Denies fever or chills Musculoskeletal: Denies injury Neuro: Denies dizziness Physical Exam General: No acute distress, resting comfortably Musculoskeletal: Weakness present Neurological: No tremors or focal deficit Psych: mood cooperative Vitals Signs(Last 24 hrs)__Last Charted Minimum Maximum Temp36.5(MAR 11 22:47)36.5(MAR 11 22:47)36.5(MAR 11 06:15) Resp Rate18(MAR 11 22:47)16(MAR 11 18:51)18(MAR 11 06:15) SBPH 170(MAR 11 22:47)118(MAR 11 06:15)H 179(MAR 11 10:21) DBPL 58(MAR 11 22:47)L 58(MAR 11 22:47)77(MAR 11 14:45) Problem List/ Past Medical History Aortic atherosclerosis Atherosclerosis of coronary artery without angina pectoris BMI 26.0-26.9,adult Brachial neuritis CKD stage 3 secondary to diabetes COVID-19 Carotid stenosis Cervical lymphadenopathy Change in voice Constipation DDD (degenerative disc disease), lumbar Depression, major, in remission Diabetes mellitus with microalbuminuria Diabetic nephropathy Diabetic peripheral vascular disease Diverticulosis Dysarthria Edema Encounter for examination following treatment at hospital Encounter for removal of sutures Eustachian tube dysfunction Facial droop Foot drop, right Frequent falls GERD (gastroesophageal reflux disease) Globus sensation Hx of completed stroke Hypercholesterolemia Hypertension associated with type 2 diabetes mellitus 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 heart disease without CHF 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 nephropathy LVH (left ventricular hypertrophy) Left knee pain FCI current use of insulin Low back pain Lumbar spinal stenosis Microalbuminuria Need for hepatitis C screening test Neuropathy, diabetic Nocturnal leg cramps Non-tobacco user Osteoarthritis Overweight Peripheral neuropathy Peripheral vascular disease Right ear pain Right leg weakness Risk for falls Rosacea Sacral fracture Screening for osteoporosis Somatic dysfunction of cervical region Somatic dysfunction of lumbar region Somatic dysfunction of pelvic region Somatic dysfunction of rib region Somatic dysfunction of sacral region Somatic dysfunction of thoracic region Stage 3a chronic kidney disease (CKD) Syncope Thyroid nodule Type 2 diabetes mellitus with hyperlipidemia Uncontrolled type 2 diabetes mellitus with hyperglycemia, with long-term current use of insulin Vitiligo No qualifying data available. Procedure/ Surgical History Laminectomy and discectomy: 11/22/12 Cholecystectomy: 11/23/03 Appendectomy: 07/21/73 Laparotomy: 07/21/73 Hysterectomy Mastectomy of left breast Medication List Active Medications Ordered acetaminophen: 650 mg, 2 tab(s), Oral, q6hr, PRN: Pain, scale 1-10. acetaminophen: 650 mg, 2 tab(s), Oral, q4h, PRN: Temperature greater than 38.5 degrees C. acetaminophen: 650 mg, 1 supp, Rectal, q4h, PRN: Temperature greater than 38.5 degrees C. aspirin: 81 mg, 1 tab(s), Oral, Daily. atorvastatin: 80 mg, 1 tab(s), Oral, qDay. bisoprolol: 5 mg, 1 tab(s), Oral, qDay. cefTRIAXone: 1 gram(s), 10 mL, 120 mL/hr, IV Push (INT), qDay. clopidogrel: 75 mg, 1 tab(s), Oral, qDay. glucose: 12.5 gram(s), 25 mL, IV Push, AsDirected, PRN: Hypoglycemia. heparin: 5,000 unit(s), 1 mL, Subcutaneous, q8h. hydrALAZINE: 10 mg, 0.5 mL, IV Push, q4h, PRN: Blood pressure control. insulin glargine: 15 unit(s), 0.15 mL, 0 mL/hr, Subcutaneous (INT), qHS. insulin lispro (HumaLOG): Give 0-10 units/dose, Subcutaneous, TIDAC. melatonin: 3 mg, 1 tab(s), Oral, qHS, PRN: Sleep. NIFEdipine: 30 mg, 1 tab(s), Oral, qDay. pantoprazole: 40 mg, 1 tab(s), Oral, qDayAC. Prescribed aspirin: 81 mg, 1 tab(s), Oral, Daily, for 90 day(s), 90 tab(s), 1 Refill(s). atorvastatin: 80 mg, 1 tab(s), Oral, qDay, for 90 day(s), 90 tab(s), 1 Refill(s). bisoprolol: 5 mg, 1 tab(s), Oral, qDay, 90 tab(s), 1 Refill(s). DME: See Instructions, dx E11.65, Z79.4; check BGT 4 times per day, injects insulin 4x per day; dispense 150 test strips, 11 refills, 150 EA, 11 Refill(s). DME: See Instructions, dx E11.65; doses inslulin 4x/day, dispense 150 pen needles (5mm 31 G) with 11 refills., 150 EA, 11 Refill(s). DME: See Instructions, Dexcom G7 gas inspector, 1 EA, no refills., 1 EA, 0 Refill(s). DME: See Instructions, Dexcom G7 sensors, quantity 9, 90 day supply, 3 refills use as directed apply 1 sensor every 10 days, 9 EA, 3 Refill(s). glucagon: 0.5 mg, 0.1 mL, Subcutaneous, AsDirected, PRN: for low blood sugar, 2 EA, 1 Refill(s). insulin aspart-insulin aspart protamine (Novolog Mix 70/30): 14 unit(s), Subcutaneous, BID, sliding scale up to 14 units BID IF BGT <150 no insulin BGT 150-200 take 4 units BGT 201-250 take 6 units BGT 251-300 take 8 units BGT 301-350 take 10 units BGT 351-400 take 12 units BGT 401 or higher take 14 units, 15 mL, 3 Refill(s). lisinopril: 40 mg, 1 tab(s), Oral, qDay, for 90 day(s), 90 tab(s), 1 Refill(s). Documented ascorbic acid: 500 mg, 1 tab(s), Oral, qDay, 30 tab(s), 0 Refill(s). cholecalciferol: 125 mcg, 1 cap(s), Oral, qDay, 100 cap(s), 0 Refill(s). vitamin E: 400 International_Unit, 1 cap(s), Oral, Daily, 0 Refill(s). zinc citrate: 0 Refill(s). Medications Inactivated in the Last 72 Hours aspirin: 324 mg, 4 tab(s), Oral, Once. aspirin: Miscellaneous, Once. atorvastatin: 40 mg, 1 tab(s), Oral, qDay. cefTRIAXone: 2 gram(s), 200 mL/hr, IV Piggyback, Once. enalapril: 0.625 mg, 0.5 mL, IV Push, Once. enalapril: Miscellaneous, Once. insulin lispro (HumaLOG): 8 unit(s), 0.08 mL, Subcutaneous, now. lisinopril: 40 mg, 2 tab(s), Oral, qDay. LORazepam: 0.5 mg, 0.25 mL, IV Push, Once. Sodium Chloride 0.9% intravenous solution: 1,000 mL, IV Bolus, Once. Allergies Crestor (Myalgia) Demerol HCl (SEVERE N/V) Epinephrine (SEVERE SHAKING) Iodine (HIVES) Social Hx Alcohol Risk Assessment: Denies Alcohol Use; Details: Use: Never. 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 2 daughters are out of state. Spouse Name: Rush. Details: OTher risks in environment: no current smoke exposure. Nutrition/Health Details: Caffeine intake amount: 3 servings daily. Substance Abuse Risk Assessment: Denies Substance Abuse; Details: Use: Never. Tobacco Details: Tobacco Use: Never (less than 100 in lifetime). Family Medical Hx Mother: Cancer; Diabetes mellitus; Heart disease Father: Cancer; Heart disease Sister (Kamini): Diabetes mellitus Code Status Code Status - Ordered -- 03/10/23 18:17:00 EST, DNRCC-Arrest Do Not Intubate, Constant Order Medications reviewed and up to date. I Nestor Jaramillo LPN, am scribing for Michaelle Cui NP, in the presence of Michaelle Cui. I Michaelle Cui NP, personally performed the services described in this documentation, as described by Nestor Jaramillo LPN in my presence and it is both accurate and complete. This document is transcribed using voice recognition software may contain typographical errors. Digitally Signed by MICHAELLE CUI on 03/13/2023 10:30 AM [id number] Note. MICRO - Microbiology PROCEDURE: Urine Culture [*1] SOURCE: Urine, Clean Catch BODY SITE: COLLECTED DATE/TIME: 03/10/2023 13:25 EST RECEIVED DATE/TIME: 03/10/2023 17:47 EST START DATE/TIME: 03/10/2023 17:47 EST FREE TEXT SOURCE: FINAL REPORTS Final Report [] Verified Date/Time/Personnel: 03/11/2023 14:20 EST <10,000 cfu/ml. No Significant growth. Sensitivity not indicated. Performing Locations *1: This test was performed at: [facility], [address] [place] [address], [facility] , [facility] ([place])03-11-2023 Neurology Consult note Date of Service March 11, 2023 Reason for Consultation Right upper extremity numbness and paresthesias Referring Physician Dr. Grace History of Present Illness 87-year-old female. Past records were reviewed. She was seen in April 2021 for a punctate stroke in the left basal ganglia and was found to have a moderate left ICA stenosis. Her echo was unrevealing and a subsequent 48-hour Holter monitor was unrevealing. She followed up with [facility] in May and was relatively stable on aspirin and a statin. She now returns to [place] with acute onset ofright upper extremity weakness numbness and paresthesias associated with dizziness. She reports compliance with her medications. Symptoms are slightly improved compared to yesterday but she is still having difficulty using her right hand. She does not endorse any other new neurologic symptoms aside from a mild diffuse headache. Review of Systems Aside from what is mentioned in the HPI, there were no other pertinent positives in the patient's neurologic review of systems. Physical Exam Vitals and Measurements T: 36.8 C (Oral) TMIN: 36.5 C (Oral) TMAX: 36.9 C (Oral) HR: 65 RR: 18 BP: 179/71 SpO2: 96% HT: 162.6 cm WT: 66.8 kg BMI: 25.27 Weight Dosing Weight: 66.8 kg (03/10/23) Neurologic Exam Mental Status: Orientation: oriented to person, [facility], and [facility] Language: normal fluency, normal simple comprehension Speech: non-dysarthric Cranial Nerves: Pupils: 4mm -> 2mm bilaterally Visual Christian: full to confrontation bilaterally Fundus: not well visualized as the patient wasn't tolerating the light and having trouble fixating CN III, IV, : EOMI. No nystagmus CN V: normal light touch and temp sensation in V1, V2, V3, bilaterally. CN VII: face symmetric at rest. Facial muscle strength intact CN VIII: auditory acuity intact to bedside testing Sensation: Light touch: reduced in RUE distally Motor: Involuntary movements: none Strength: LUE: 4+/5 proximally, 4+/5 distally RUE: 4+/5 proximally, 4+/5 distally LLE: 4+/5 proximally, 5/5 distally RLE: 4+/5 proximally, 5/5 distally Reflexes: R L B 2 2 BR 2 2 P 2 2 Toes eq Coordination: Sephtn-gzcg-nhymob movements intact bilaterally Lab Results The following labs were reviewed: 03/11 03:47 WBC: 6.9 Hgb: 12.5 Hct: 36.6 Platelet: 261 Neutrophil %: 60.9 Glucose Level: 82 Sodium Level: 141 Potassium Level: 4.0 BUN: 21.0 Creatinine Lvl (s): 0.69 Diabetes Labs Creatinine Lvl (s): 0.69 mg/dL (03/11/23) Glucose Level: 82 mg/dL (03/11/23) Blood Glucose, Capillary: 140 mg/dL High (03/11/23) Hgb A1c: 9.6 % High (03/10/23) Cholesterol: 208 mg/dL High (03/11/23) Triglycerides: 68 mg/dL (03/11/23) HDL Cholesterol: 48 mg/dL (03/11/23) LDL Cholesterol: 146 mg/dL High (03/11/23) Imaging Results and Diagnostics The following imaging reports were reviewed: (03/10/2023 10:[address] Head or Brain w/o Contrast) IMPRESSION: No acute intracranial pathology. Images of the CT head were personally reviewed - no definite acute process was appreciated, only chronic changes were apparent. EKG Sinus Assessment/Plan Stroke Likely due to long-term vascular risk factors. A brain MRI, TTE, and MRA H/N are ordered. Agree with DAPT, if medically safe to do so. Would suggest a PPI also be given due to her advanced age. A/w a high dose statin. 80mg can be considered in her case if tolerated given her high LDL. She'll need much better control of her A1c as well. Will need a CardioNet monitor at discharge if no indication for anti-coagulation is found during admission. Will follow peripherally and add further recommendations or formally follow-up as needed. Please call with any concerns or questions. She should follow-up with [facility] in 4 6 weeks. General guidelines for long-term vascular risk factor modification in the setting of a stroke: SBP goal: < 140 as tolerated, goal LDL < 70, HbA1c: < 7 Probable stroke etiology/risk factors and long-term prevention were discussed. Common and serious side effects of preventative medications were discussed, including risks of bleeding with antiplatelet agents, and risks of myalgias with statins. High risk acute neurologic condition due to high chance of recurrent stroke/TIA without intervention. Multiple other comorbidities present as well, including prior stroke, numerous vascular risks. Problem List/Past Medical History Ongoing Aortic atherosclerosis Atherosclerosis of coronary artery without angina pectoris BMI 26.0-26.9,adult Brachial neuritis Carotid stenosis Cervical lymphadenopathy Change in voice CKD stage 3 secondary to diabetes Constipation COVID-19 DDD (degenerative disc disease), lumbar Depression, major, in remission Diabetes mellitus with microalbuminuria Diabetic nephropathy Diabetic peripheral vascular disease Diverticulosis Dysarthria Edema Encounter for examination following treatment at hospital Encounter for removal of sutures Eustachian tube dysfunction Facial droop Foot drop, right Frequent falls GERD (gastroesophageal reflux disease) Globus sensation Hx of completed stroke Hypercholesterolemia Hypertension associated with type 2 diabetes mellitus 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 heart disease without CHF 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 nephropathy 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 Low back pain Lumbar spinal stenosis LVH (left ventricular hypertrophy) Microalbuminuria Need for hepatitis C screening test Neuropathy, diabetic Nocturnal leg cramps Non-tobacco user Osteoarthritis Overweight Peripheral neuropathy Peripheral vascular disease Right ear pain Right leg weakness Risk for falls Rosacea Sacral fracture Screening for osteoporosis Somatic dysfunction of cervical region Somatic dysfunction of lumbar region Somatic dysfunction of pelvic region Somatic dysfunction of rib region Somatic dysfunction of sacral region Somatic dysfunction of thoracic region Stage 3a chronic kidney disease (CKD) Syncope Thyroid nodule Type 2 diabetes mellitus with hyperlipidemia Uncontrolled type 2 diabetes mellitus with hyperglycemia, with long-term current use of insulin Vitiligo Historical No qualifying data Procedure/Surgical History Laminectomy and discectomy: 11/22/12 Cholecystectomy: 11/23/03 Appendectomy: 07/21/73 Laparotomy: 07/21/73 Hysterectomy Mastectomy of left breast Medications Inpatient acetaminophen, 650 mg= 2 tab(s), Oral, q6hr, PRN aspirin, 81 mg= 1 tab(s), Oral, Daily atorvastatin, 40 mg= 1 tab(s), Oral, qDay bisoprolol, 5 mg= 1 tab(s), Oral, qDay cefTRIAXone, 1 gram(s)= 10 mL, IV Push (INT), qDay Dextrose 50% IV Push, 12.5 gram(s)= 25 mL, IV Push, AsDirected, PRN heparin 5000 units/mL injection, 5000 unit(s)= 1 mL, Subcutaneous, q8h HumaLOG 100 units/mL subcutaneous solution, Give 0-10 units/dose, Subcutaneous, TIDAC hydrALAZINE, 10 mg= 0.5 mL, IV Push, q4h, PRN Lantus, 15 unit(s)= 0.15 mL, Subcutaneous (INT), qHS melatonin, 3 mg= 1 tab(s), Oral, qHS, PRN Plavix, 75 mg= 1 tab(s), Oral, qDay Protonix, 40 mg= 1 tab(s), Oral, qDayAC Tylenol, 650 mg= 2 tab(s), Oral, q4h, PRN Tylenol, 650 mg= 1 supp, Rectal, q4h, PRN Home aspirin 81 mg oral tablet, chewable, 81 mg= 1 tab(s), Oral, Daily, 1 refills atorvastatin 80 mg oral tablet, 80 mg= 1 tab(s), Oral, qDay, 1 refills, Not taking bisoprolol 5 mg oral tablet, 5 mg= 1 tab(s), Oral, qDay, 1 refills Continuous Glucose Monitoring System, See Instructions Continuous Glucose Monitoring System, See Instructions, 3 refills DME MISCellaneous, See Instructions, 11 refills DME MISCellaneous, See Instructions, 11 refills Gvoke HypoPen One Pack 0.5 mg/0.1 mL subcutaneous solution, 0.5 mg= 0.1 mL, Subcutaneous, AsDirected, PRN, 1 refills lisinopril 40 mg oral tablet, 40 mg= 1 tab(s), Oral, qDay, 1 refills NovoLOG Mix 70/30 FlexPen 3 mL Pen, 14 unit(s), Subcutaneous, BID, 3 refills, Still taking, not as prescribed: Patient states that she only takes insulin in the morning, depending on blood sugar, andthen doesn't take any the rest of the day. 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 2 daughters are out of state. Spouse Name: Rush., 09/01/2022 OTher risks in environment: no current smoke exposure., 12/10/2018 Nutrition/Health Caffeine intake amount: 3 servings daily., 06/21/2021 Substance Abuse - Denies Substance Abuse, 03/20/2017 Use: Never., 12/10/2018 Tobacco Tobacco Use: Never (less than 100 in lifetime)., 12/10/2018 Family History Cancer: Mother and Father. Diabetes mellitus: Mother and Sister. Heart disease: Mother and Father. [1] CT Head or Brain w/o Contrast; OSKAR MIGUEL MD 03/10/2023 10:51 EST Digitally Signed by VENKAT LASSITER MD on 03/11/2023 03:42 PM [id number] Note Chief Complaint Transition plan Transitional Action Points 87-year-old female, new consult, CCA/DNI. Presents with acute CVA, ataxia, vertigo. At baseline from home, uses a cane/FWW when out in the community, history of falls x2, last fall resulted in a laceration over the scalp. PT/OT was ordered by the hospital on 03/10. Medical recommendations and plan of care are pending. Assessment/Plan CVA Ataxia Vertigo Readmission Risk Points Age greater than 65 Aortic atherosclerosis Brachial neuritis CKD stage III secondary to diabetes Cervical lymphadenopathy DDD (degenerative disc disease), lumbar Diabetic nephropathy Diabetic peripheral vascular disease Dysarthria Hypertension associated with type 2 diabetes mellitus History of Present illness Patient is an 87-year-old female admitted to [facility] with an acute CVA. Prior to admission, patient resides at home and is independent at baseline with ADLs. She states typically while she is in her home she does not use any assistive devices and utilizes a cane or walker when out in the community. She does have previous history of falls. No previous hospitalizations documented. PT/OT services have been ordered with evaluation and recommendations pending. Review of Symptoms General: Denies fever or chills Musculoskeletal: Generalized weakness Neuro: Denies dizziness Physical Exam General: No acute distress Musculoskeletal: Weakness Neurological: No tremors or focal deficit Psych: mood cooperative Vitals Signs(Last 24 hrs)__Last Charted Minimum Maximum Temp36.5(MAR 11 06:15)36.5(MAR 11 06:15)36.5(MAR 10 18:12) Resp Rate18(MAR 11 06:15)18(MAR 10 18:12)18(MAR 10 18:12) HYO462(MAR 11 06:15)118(MAR 11 06:15)H 189(MAR 10 18:12) DBP62(MAR 11 06:15)62(MAR 11 06:15)77(MAR 10 18:49) Problem List/Past Medical History Aortic atherosclerosis Atherosclerosis of coronary artery without angina pectoris BMI 26.0-26.9,adult Brachial neuritis CKD stage 3 secondary to diabetes COVID-19 Carotid stenosis Cervical lymphadenopathy Change in voice Constipation DDD (degenerative disc disease), lumbar Depression, major, in remission Diabetes mellitus with microalbuminuria Diabetic nephropathy Diabetic peripheral vascular disease Diverticulosis Dysarthria Edema Encounter for examination following treatment at hospital Encounter for removal of sutures Eustachian tube dysfunction Facial droop Foot drop, right Frequent falls GERD (gastroesophageal reflux disease) Globus sensation Hx of completed stroke Hypercholesterolemia Hypertension associated with type 2 diabetes mellitus 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 heart disease without CHF 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 nephropathy LVH (left ventricular hypertrophy) 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 Low back pain Lumbar spinal stenosis Microalbuminuria Need for hepatitis C screening test Neuropathy, diabetic Nocturnal leg cramps Non-tobacco user Osteoarthritis Overweight Peripheral neuropathy Peripheral vascular disease Right ear pain Right leg weakness Risk for falls Rosacea Sacral fracture Screening for osteoporosis Somatic dysfunction of cervical region Somatic dysfunction of lumbar region Somatic dysfunction of pelvic region Somatic dysfunction of rib region Somatic dysfunction of sacral region Somatic dysfunction of thoracic region Stage 3a chronic kidney disease (CKD) Syncope Thyroid nodule Type 2 diabetes mellitus with hyperlipidemia Uncontrolled type 2 diabetes mellitus with hyperglycemia, with long-term current use of insulin Vitiligo Procedure/ Surgical History Laminectomy and discectomy: 11/22/12 Cholecystectomy: 11/23/03 Appendectomy: 07/21/73 Laparotomy: 07/21/73 Hysterectomy Mastectomy of left breast Medication List Active Medications Ordered acetaminophen: 650 mg, 2 tab(s), Oral, q6hr, PRN: Pain, scale 1-10. acetaminophen: 650 mg, 2 tab(s), Oral, q4h, PRN: Temperature greater than 38.5 degrees C. acetaminophen: 650 mg, 1 supp, Rectal, q4h, PRN: Temperature greater than 38.5 degrees C. atorvastatin: 40 mg, 1 tab(s), Oral, qDay. bisoprolol: 5 mg, 1 tab(s), Oral, qDay. cefTRIAXone: 1 gram(s), 10 mL, 120 mL/hr, IV Push (INT), qDay. clopidogrel: 75 mg, 1 tab(s), Oral, qDay. glucose: 12.5 gram(s), 25 mL, IV Push, AsDirected, PRN: Hypoglycemia. heparin: 5,000 unit(s), 1 mL, Subcutaneous, q8h. hydrALAZINE: 10 mg, 0.5 mL, IV Push, q4h, PRN: Blood pressure control. insulin glargine: 15 unit(s), 0.15 mL, 0 mL/hr, Subcutaneous (INT), qHS. insulin lispro (HumaLOG): Give 0-10 units/dose, Subcutaneous, TIDAC. melatonin: 3 mg, 1 tab(s), Oral, qHS, PRN: Sleep. Prescribed aspirin: 81 mg, 1 tab(s), Oral, Daily, for 90 day(s), 90 tab(s), 1 Refill(s). atorvastatin: 80 mg, 1 tab(s), Oral, qDay, for 90 day(s), 90 tab(s), 1 Refill(s). bisoprolol: 5 mg, 1 tab(s), Oral, qDay, 90 tab(s), 1 Refill(s). DME: See Instructions, dx E11.65, Z79.4; check BGT 4 times per day, injects insulin 4x per day; dispense 150 test strips, 11 refills, 150 EA, 11 Refill(s). DME: See Instructions, dx E11.65; doses inslulin 4x/day, dispense 150 pen needles (5mm 31 G) with 11 refills., 150 EA, 11 Refill(s). DME: See Instructions, Dexcom G7 gas inspector, 1 EA, no refills., 1 EA, 0 Refill(s). DME: See Instructions, Dexcom G7 sensors, quantity 9, 90 day supply, 3 refills use as directed apply 1 sensor every 10 days, 9 EA, 3 Refill(s). glucagon: 0.5 mg, 0.1 mL, Subcutaneous, AsDirected, PRN: for low blood sugar, 2 EA, 1 Refill(s). insulin aspart-insulin aspart protamine (Novolog Mix 70/30): 14 unit(s), Subcutaneous, BID, sliding scale up to 14 units BID IF BGT <150 no insulin BGT 150-200 take 4 units BGT 201-250 take 6 units BGT 251-300 take 8 units BGT 301-350 take 10 units BGT 351-400 take 12 units BGT 401 or higher take 14 units, 15 mL, 3 Refill(s). lisinopril: 40 mg, 1 tab(s), Oral, qDay, for 90 day(s), 90 tab(s), 1 Refill(s). Documented ascorbic acid: 500 mg, 1 tab(s), Oral, qDay, 30 tab(s), 0 Refill(s). cholecalciferol: 125 mcg, 1 cap(s), Oral, qDay, 100 cap(s), 0 Refill(s). vitamin E: 400 International_Unit, 1 cap(s), Oral, Daily, 0 Refill(s). zinc citrate: 0 Refill(s). Medications Inactivated in the Last 72 Hours aspirin: 324 mg, 4 tab(s), Oral, Once. aspirin: Miscellaneous, Once. cefTRIAXone: 2 gram(s), 200 mL/hr, IV Piggyback, Once. enalapril: 0.625 mg, 0.5 mL, IV Push, Once. enalapril: Miscellaneous, Once. insulin lispro (HumaLOG): 8 unit(s), 0.08 mL, Subcutaneous, now. lisinopril: 40 mg, 2 tab(s), Oral, qDay. LORazepam: 0.5 mg, 0.25 mL, IV Push, Once. Sodium Chloride 0.9% intravenous solution: 1,000 mL, IV Bolus, Once. Allergies Crestor (Myalgia) Demerol HCl (SEVERE N/V) Epinephrine (SEVERE SHAKING) Iodine (HIVES) Social Hx Alcohol Risk Assessment: Denies Alcohol Use; Details: Use: Never. 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 2 daughters are out of state. Spouse Name: Rush. Details: OTher risks in environment: no current smoke exposure. Nutrition/Health Details: Caffeine intake amount: 3 servings daily. Substance Abuse Risk Assessment: Denies Substance Abuse; Details: Use: Never. Tobacco Details: Tobacco Use: Never (less than 100 in lifetime). Family Medical Hx Mother: Cancer; Diabetes mellitus; Heart disease Father: Cancer; Heart disease Sister (Kamini): Diabetes mellitus Code Status Code Status - Ordered -- 03/10/23 18:17:00 EST, DNRCC-Arrest Do Not Intubate, Constant Order Medications reviewed and up to date This document was transcribed using dictation software and may contain typographical errors. IHans LPN, am scribing for , and in the presence of Mercedes Gomez CNP. I, Mercedes Gomez CNP, personally performed the services described in this documentation, as scribed by, Hans Carpenter LPN in my presence and it is both accurate and complete. 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 Patient's last known well time was around 9 PM when she went to bed, when she woke up this morning she fell down. Patient has had some degree of ataxia at baseline but it was worse this morning, alsocomplained of dizziness/fuzziness on my evaluation. Patient has limited Italian proficiency so history is limited. Patient is on oral aspirin at home, vital signs on admission were significant for hypertension withsystolic in 180s on my evaluation, labs on admission were significant for hyperglycemia with blood sugar of 238, UA showing evidence of UTI with moderate leukocyte esterase, loaded WBC and trace bacteriuria. Chest x- ray on admission showed stable examination, CT head without contrast on admission did not show any acute intracranial pathology. Not a candidate for tPA on arrival due to last known well time of 9 PM when she went to bed, patient has had anaphylaxis to IV contrast so LVO workup was not done by ER physician also symptoms appears to be more posterior circulation stroke related and with low NIH, I do not think that she needs acute LVO workup at the time of my evaluation. EKG on admission demonstrated sinus rhythm with left anterior fascicular block with QTc of 427 ms. Review of Systems Review of systems are negative except as mentioned in HPI Physical Exam Vitals and Measurements T: 36.5 C (Oral) HR: 68 RR: 18 BP: 189/65 SpO2: 98% HT: 162.6 cm WT: 66.8 kg BMI: 25.27 Weight Dosing Weight: 66.8 kg (03/10/23) General Appearance: Appears to be stable and in no acute distress Head: Atraumatic and normocephalic EENT: EOMI, PERRLA, no oropharyngeal erythema, no tonsillar exudates, no conjunctival injection. sclera anicteric. Neck: No thyromegaly, no cervical lymphadenopathy, trachea midline Cardiac: S1 and S2 normal. RRR. No murmurs, rubs, or gallops. No JVD. No hepatojugular reflex. Lungs: Good air entry bilaterally. No increased work for breathing. No wheezes, rhonchi, or rales. Abdomen: Soft, nontender, nondistended. Normoactive bowel sounds. No rebound or guarding. Negative Cortes's sign. No hepatosplenomegaly. Musculoskeletal: Full range of motion upper and lower extremities. No CVA tenderness. Extremities: No lower extremity pitting edema. 2+ radial and pedal pulses bilaterally. Neurological: Left-sided facial droop present, power 5 out of 5 in all 4 extremities, decreased sensation of right lower extremity as compared to left lower extremity. Did have some expressive aphasia. Skin: No abrasions, scars, or hematomas on visible skin. No cyanosis. No purulent discharge. Psychiatric: Alert and oriented, well groomed, euthymic. cooperative Lab Results WBC: 6 10^3/mcL (03/10/23 10:08:00) RBC: 4.51 10^6/mcL (03/10/23 10:08:00) Hgb: 13.6 G/dL (03/10/23 10:08:00) Hct: 40.8 % (03/10/23 10:08:00) MCV: 90.6 fL (03/10/23 10:08:00) MCH: 30.2 pg (03/10/23 10:08:00) MCHC: 33.3 G/dL (03/10/23 10:08:00) RDW: 13.8 % (03/10/23 10:08:00) Platelet: 267 10^3/mcL (03/10/23 10:08:00) MPV: 8.5 fL (03/10/23 10:08:00) Monocyte Distribution Width: 19.87 (03/10/23 10:08:00) Neutrophil %: 72.6 % (03/10/23 10:08:00) Lymphocyte %: 18 % (03/10/23 10:08:00) Monocyte %: 7.1 % (03/10/23 10:08:00) Eosinophil %: 1.7 % (03/10/23 10:08:00) Basophil %: 0.6 % (03/10/23 10:08:00) Neutrophil, Absolute: 4.4 10^3/mcL (03/10/23 10:08:00) Lymphocyte, Absolute: 1.1 10^3/mcL (03/10/23 10:08:00) Monocyte, Absolute: 0.4 10^3/mcL (03/10/23 10:08:00) Eosinophil, Absolute: 0.1 10^3/mcL (03/10/23 10:08:00) Basophil, Absolute: 0 10^3/mcL (03/10/23 10:08:00) UA Specimen Type: Clean Catch (03/10/23 11:39:00) UA Color: Yellow (03/10/23 11:39:00) UA Appear: Slightly Cloudy Abnormal (03/10/23 11:39:00) UA Spec Grav: 1.015 (03/10/23 11:39:00) UA Glucose: 250 Abnormal (03/10/23 11:39:00) UA Bili: Negative. (03/10/23 11:39:00) UA Ketones: 15 Abnormal (03/10/23 11:39:00) UA Blood: Negative. (03/10/23 11:39:00) UA pH: 5.5 (03/10/23 11:39:00) UA Protein: Negative.1 (03/10/23 11:39:00) UA Urobilinogen: 0.2 (03/10/23 11:39:00) UA Nitrite: Negative. (03/10/23 11:39:00) UA Leuk Est: Moderate Abnormal (03/10/23 11:39:00) UA RBC: None Seen (03/10/23 11:39:00) UA WBC: LOADED Abnormal (03/10/23 11:39:00) UA Squam Epithelial: 0-5 Abnormal (03/10/23 11:39:00) UA Bacteria: Trace Abnormal (03/10/23 11:39:00) Glucose Level: 238 mg/dL High (03/10/23 10:08:00) Sodium Level: 138 mmol/L (03/10/23 10:08:00) Potassium Level: 4.1 mmol/L (03/10/23 10:08:00) Chloride: 102 mmol/L (03/10/23 10:08:00) CO2: 26 mmol/L (03/10/23 10:08:00) Electrolyte Balance: 10 mEq/L (03/10/23 10:08:00) BUN: 17 mg/dL (03/10/23 10:08:00) Creatinine Lvl (s): 0.84 mg/dL (03/10/23 10:08:00) BUN/Creatinine Ratio: 20 ratio (03/10/23 10:08:00) Calcium Lvl: 9.1 mg/dL (03/10/23 10:08:00) Magnesium Lvl: 1.8 mg/dL (03/10/23 10:08:00) Total Protein: 7.2 G/dL (03/10/23 10:08:00) Albumin Level: 3.7 G/dL (03/10/23 10:08:00) Globulin: 3.5 G/dL (03/10/23 10:08:00) A/G Ratio: 1.1 ratio (03/10/23 10:08:00) Bili Total: 0.8 mg/dL (03/10/23 10:08:00) Alk Phos: 100 U/L (03/10/23 10:08:00) AST/SGOT: 18 U/L (03/10/23 10:08:00) ALT/SGPT: 21 U/L (03/10/23 10:08:00) GFR Non-: 64 ml/min/1.73sqm (03/10/23 10:08:00) GFR : 78 ml/min/1.73sqm (03/10/23 10:08:00) C-Reactive Protein: 0.1 mg/dL (03/10/23 10:08:00) Troponin I High Sensitivity: 8.6 ng/L (03/10/23 10:08:00) Blood Glucose, Capillary: 280 mg/dL High (03/10/23 18:12:00) Blood Glucose Testing Reason: Routine (03/10/23 09:49:00) Imaging Results and Diagnostics CT head as above EKG EKG as above Assessment/Plan Assessment: Acute CVA UTI Type 2 diabetes mellitus Peripheral vascular disease CKD stage II Hypertension Plan: -Presented with right upper extremity numbness and tingling and worsening ataxia along with dizziness/fuzziness. 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 CT head without contrast did not show any acute abnormalities, LVO workup was not done as patient has had anaphylaxis to IV contrast/iodine, also a physician felt that patient had low NIH, candidate for tPA as last known well time was more than 4 and half hours prior to patient arrival. Patient is on oral aspirin at home, switch to Plavix. Continue statin. MRI brain, MRA head and neck, echocardiogram with bubble study ordered. Neurology consulted, will appreciate neurology help in deciding whether patient need dual antiplatelets. Patient did pass swallow evaluation at [facility] so put on diabetic diet -UA on admission she did show evidence of UTI, blood and urine cultures ordered. IV Rocephin 1 g daily. -Diabetic diet, insulin lispro sliding scale insulin glargine scheduled for type 2 diabetes mellitus -Per medical records, she has diagnosis of peripheral vascular disease. Continue Plavix and statin -Serum creatinine of 0.84 with GFR 64 on admission, correspond with CKD stage II. Renally dose all medications and avoid nephrotoxic medications, -Systolic in 180s on my evaluation, per records she is on bisoprolol and lisinopril at home. Permissive hypertension for now, resume bisoprolol to avoid beta-tabby withdrawal, IV hydralazine as needed for systolic more than 185 DVT prophylaxis: SCDs Heparin subcu Note was written using [employer] way inspector software. Some of the meaning of the words and sentences might have changed during way inspector, if there was ever some confusion about the meaning of some sentences, please do not hesitate to contact me. Problem List/Past Medical History Ongoing Aortic atherosclerosis Atherosclerosis of coronary artery without angina pectoris BMI 26.0-26.9,adult Brachial neuritis Carotid stenosis Cervical lymphadenopathy Change in voice CKD stage 3 secondary to diabetes Constipation COVID-19 DDD (degenerative disc disease), lumbar Depression, major, in remission Diabetes mellitus with microalbuminuria Diabetic nephropathy Diabetic peripheral vascular disease Diverticulosis Dysarthria Edema Encounter for examination following treatment at hospital Encounter for removal of sutures Eustachian tube dysfunction Facial droop Foot drop, right Frequent falls GERD (gastroesophageal reflux disease) Globus sensation Hx of completed stroke Hypercholesterolemia Hypertension associated with type 2 diabetes mellitus 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 heart disease without CHF 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 nephropathy Left knee pain [facility] current use of insulin Low back pain Lumbar spinal stenosis LVH (left ventricular hypertrophy) Microalbuminuria Need for hepatitis C screening test Neuropathy, diabetic Nocturnal leg cramps Non-tobacco user Osteoarthritis Overweight Peripheral neuropathy Peripheral vascular disease Right ear pain Right leg weakness Risk for falls Rosacea Sacral fracture Screening for osteoporosis Somatic dysfunction of cervical region Somatic dysfunction of lumbar region Somatic dysfunction of pelvic region Somatic dysfunction of rib region Somatic dysfunction of sacral region Somatic dysfunction of thoracic region Stage 3a chronic kidney disease (CKD) Syncope Thyroid nodule Type 2 diabetes mellitus with hyperlipidemia Uncontrolled type 2 diabetes mellitus with hyperglycemia, with long-term current use of insulin Vitiligo Historical No qualifying data Procedure/Surgical History Laminectomy and discectomy: 11/22/12 Cholecystectomy: 11/23/03 Appendectomy: 07/21/73 Laparotomy: 07/21/73 Hysterectomy Mastectomy of left breast Medications Home Medications (14) Active aspirin 81 mg oral tablet, chewable 81 mg = 1 tab(s), Oral, Daily atorvastatin 80 mg oral tablet 80 mg = 1 tab(s), Oral, qDay bisoprolol 5 mg oral tablet 5 mg = 1 tab(s), Oral, qDay Continuous Glucose Monitoring System See Instructions Continuous Glucose Monitoring System See Instructions DME MISCellaneous See Instructions DME MISCellaneous See Instructions Gvoke HypoPen One Pack 0.5 mg/0.1 mL subcutaneous solution 0.5 mg = 0.1 mL, PRN, Subcutaneous, AsDirected lisinopril 40 mg oral tablet 40 mg = 1 tab(s), Oral, qDay NovoLOG Mix 70/30 FlexPen 3 mL Pen 14 unit(s), Subcutaneous, BID Vitamin C 500 mg oral tablet 500 mg = 1 tab(s), Oral, qDay Vitamin D3 125 mcg (5000 intl units) oral capsule 125 mcg = 1 cap(s), Oral, qDay vitamin E 400 intl units oral capsule 400 International_Unit = 1 cap(s), Oral, Daily zinc citrate 50 mg oral capsule Allergies Crestor (Myalgia) Demerol HCl (SEVERE N/V) Epinephrine (SEVERE SHAKING) Iodine (HIVES) Social History Smoking Status - 03/20/2017 Never smoker Alcohol - Denies Alcohol Use, 03/20/2017 Use: Never., 12/10/2018 Home/Environment 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 2 daughters are out of state. Spouse Name: Rush., 09/01/2022 OTher risks in environment: no current smoke exposure., 12/10/2018 Nutrition/Health Caffeine intake amount: 3 servings daily., 06/21/2021 Substance Abuse - Denies Substance Abuse, 03/20/2017 Use: Never., 12/10/2018 Tobacco Tobacco Use: Never (less than 100 in lifetime)., 12/10/2018 Family History Cancer: Mother and Father. Diabetes mellitus: Mother and Sister. Heart disease: Mother and Father. Immunizations SARS-CoV-2 (COVID-19) Ad26 vaccine: 0.5 unknown unit (04/05/21) SARS-CoV-2 (COVID-19) Ad26 vaccine: 0.5 unknown unit (10/07/20) tetanus/diphth/pertuss (Tdap) adult/adol: 0.5 mL (12/27/22) Code Status Code Status - Ordered -- 03/10/23 18:17:00 EST, DNRCC-Arrest Do Not Intubate, Constant Order Digitally Signed by TAMIKA GRACE MD on 03/10/2023 06:48 PM [id number] Evaluation + Plan note Diagnostic Tests Pending * Urine Culture 03/10/23 Future Scheduled Tests Laboratory* Thyroid Stimulating Hormone 04/04/22 * A1C Hemoglobin 04/04/22 * Complete Blood Count 04/04/22 * Lipid Profile 04/04/22 * Hepatitis C Antibody IgG 04/04/22 * Microalbumin Level Urine 04/04/22 * Complete Metabolic Panel 04/04/22 Radiology* BD Bone Density DEXA Axial Skeleton 04/04/22 [facility] 11-25-2023 Evaluation + Plan noteExtracted from: Title:History and Physical Author:TAMIKA GRACE MD Date:03/10/23 Assessment: Acute CVA UTI Type 2 diabetes mellitus Peripheral vascular disease CKD stage II Hypertension Plan: -Presented with right upper extremity numbness and tingling and worsening ataxia along with dizziness/fuzziness. 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 CT head without contrast did not show any acute abnormalities, LVO workup was not done as patient has had anaphylaxis to IV contrast/iodine, also a physician felt that patient had low NIH, candidate for tPA as last known well time was more than 4 and half hours prior to patient arrival. Patient is on oral aspirin at home, switch to Plavix. Continue statin. MRI brain, MRA head and neck, echocardiogram with bubble study ordered. Neurology consulted, will appreciate neurology help in deciding whether patient need dual antiplatelets. Patient did pass swallow evaluation at [facility] so put on diabetic diet -UA on admission she did show evidence of UTI, blood and urine cultures ordered. IV Rocephin 1 g daily. -Diabetic diet, insulin lispro sliding scale insulin glargine scheduled for type 2 diabetes mellitus -Per medical records, she has diagnosis of peripheral vascular disease. Continue Plavix and statin -Serum creatinine of 0.84 with GFR 64 on admission, correspond with CKD stage II. Renally dose all medications and avoid nephrotoxic medications, -Systolic in 180s on my evaluation, per records she is on bisoprolol and lisinopril at home. Permissive hypertension for now, resume bisoprolol to avoid beta- tabby withdrawal, IV hydralazine as needed for systolic more than 185 DVT prophylaxis: SCDs Heparin subcu Note was written using [employer] way inspector software. Some of the meaning of the words and sentences might have changed during way inspector, if there was ever some confusion about the meaning of some sentences, please do not hesitate to contact me. Future Scheduled Tests Laboratory* Thyroid Stimulating Hormone 04/04/22 * A1C Hemoglobin 04/04/22 * Complete Blood Count 04/04/22 * Lipid Profile 04/04/22 * Hepatitis C Antibody IgG 04/04/22 * Microalbumin Level Urine 04/04/22 * Complete Metabolic Panel 04/04/22 Radiology* BD Bone Density DEXA Axial Skeleton 04/04/22 [facility] 11-25-[address] Mccallum requested that the patient be ambulated. Patient ambulated to bathroom with 2 assist andthen required a wheelchair to return from bathroom. Patient states she still feels drunk. Dr. Mccallum made aware. Digitally Signed by Ermelinda Chi RN on 03/10/2023 11:55 AM [facility]11-25-2023 Note ORIGINAL EXAMINATION: CT HEAD TECHNIQUE: Axial CT images from skull base to vertex without IV contrast. This exam was performed according to our departmental dose optimization program, and includes the following measures where applicable: automated exposure control, adjustment of the mAs and/or kVp according to patient size and/or exam, and an iterative reconstruction algorithm. COMPARISON: CT head 01/26/2023 HISTORY: ORDERING SYSTEM PROVIDED HISTORY: Reason for Exam: dizziness FINDINGS: Parenchyma: No acute intracranial hemorrhage, midline shift, mass effect or acute ischemic infarct is demonstrated. The dasilva-white matter junctions are preserved. No space occupying intra-axial masses or extra-axial fluid collections are seen. Mild parenchymal volume loss most pronounced in the bilateral parietal lobes is noted. Scattered areas of decreased attenuation are identified in the subcortical, periventricular, and deep white matter likely reflecting mild chronic microvascular white matter ischemic disease. 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 Ventricles: No evidence of hydrocephalus or ventricular effacement. The ventricles and sulci are proportionate. Vessels: Atherosclerotic calcifications of the distal left vertebral and bilateral internal carotid arteries. Orbits: Unremarkable. Post bilateral lens implant surgery Calvarium: Unremarkable. Paranasal sinuses: Mild mucosal thickening of the right maxillary sinus. Mastoid sinuses: Clear. IMPRESSION: No acute intracranial pathology. Interpreted by: Oskar Miguel MD Preliminary Report By: Oskar Miguel MD Electronically signed By Oskar Miguel MD Dictated Date: 03/10/2023 10:58:01 AM Prelim Date: 03/10/2023 11:00:16 AM Sign Date: 03/10/2023 11:00:16 AM Ordering Provider: [facility]11-25-2023 Note ORIGINAL EXAMINATION: ONE XRAY VIEW OF THE CHEST TECHNIQUE: AP upright COMPARISON: Chest 12/27/2022 HISTORY: ORDERING SYSTEM PROVIDED HISTORY: Reason for Exam: chest pain FINDINGS: Support devices: None Cardiomediastinal: The heart is stable in size. Lungs: Chronic reticular interstitial markings within the bilateral lower lobes. No consolidation, pulmonary edema or a large pleural effusion. Pneumothorax: None Osseous: No acute osseous pathology. Widespread demineralization. Bilateral shoulder arthrosis. Degenerative tearing of the distal right clavicle. IMPRESSION: Stable chest examination. Interpreted by: Oskar Miguel MD Preliminary Report By: Oskra Miguel MD Electronically signed By Oskar Miguel MD Dictated Date: 03/10/2023 10:56:46 AM Prelim Date: 03/10/2023 10:57:58 AM Sign Date: 03/10/2023 10:57:58 AM Ordering Provider: [facility]11-25-2023 NoteSinus rhythm Left anterior fascicular block Abnormal R-wave progression, late transition Probable left ventricular hypertrophy SEE DICTATION Electronic Signature: REGINALD MCCALLUM MD 03/10/2023 10:03:46[facility] 10-13-2023 Hospital Discharge instructions Patient Education 01/26/2023 06:40:35 Headache, Unspecified Headache, Unspecified A number of things can cause headaches. The cause of your headache isn t clear. But it doesn t seemto be a sign of any serious illness. Headache affects almost everyone at some time. It is the most common reason people miss days from work or school. You could have a tension headache or a migraine headache. Stress can cause a tension headache. This can happen if you tense the muscles of your shoulders, neck, and scalp without knowing it. If this stress lasts long enough, you may develop a tension headache. It is not clear why migraines occur, but certain things called triggers can raise the risk of having a migraine attack. Migraine triggers may include emotional stress or depression, or by hormone changes during the menstrual cycle. Other triggers include control pills and other medicines, alcohol or caffeine, foods with tyramine (such as aged cheese, wine), eyestrain, weather changes, missed meals, and lack of sleep or oversleeping. Other causes of headache include: Viral illness with high fever Head injury with concussion Sinus, ear, or throat infection Dental pain and jaw joint (TMJ) pain More serious but less common causes of headache include stroke, brain hemorrhage, brain tumor, meningitis, and encephalitis. Home care Follow these tips when taking care of yourself at home: Don t drive yourself home if you were given pain medicine for your headache. Instead, have someone else drive you home. Try to sleep when you get home. You should feel much better when you wake up. Apply heat to the back of your neck to ease a neck muscle spasm. Take care of a migraine headache by putting an ice pack on your forehead or at the base of your skull. If you have nausea or vomiting, eat a light diet until your headache eases. If you have a migraine headache, use sunglasses when in the daylight or around bright indoor lighting until your symptoms get better. Bright glaring light can make this type of headache worse. Follow-up care Follow up with your healthcare provider, or as advised. Talk with your provider if you have frequent headaches. He or she can help figure out a treatment plan. By knowing the earliest signs of headache, and starting treatment right away, you may be able to stop the pain yourself. When to seek medical advice Call your healthcare provider right away if any of these occur: Your head pain suddenly gets worse after sexual intercourse or strenuous activity Your head pain doesn t get better within 24 hours You aren t able to keep liquids down (repeated vomiting) Fever of 100.4 F (38 C) or higher, or as directed by your healthcare provider Stiff neck Extreme drowsiness, confusion, or fainting Dizziness or dizziness with spinning sensation (vertigo) Weakness in an arm or leg or one side of your face You have trouble talking or seeing [id number] [employer]. [address] [place] [address], [place] [address]. All rights reserved. This information is not intended as a substitute for professional medical care. Always follow yourhealthcare professional's instructions. Follow Up Care 01/26/2023 04:58:43 With:MEY MADDOX APRN-[facility] Address: [address] [place] [address] [phone] When:2-4 days [facility] 10-13-2023 Note Discharge Instructions Thank you for allowing [facility] to assist you with your healthcare needs. The following is importantdischarge information regarding your hospital visit. Diagnosis from Today's Visit Headache What to Do Next Instructions from Your Care Team No qualifying data available. Post Acute Orders No qualifying data available. You Need to Schedule the Following Appointments Follow Up with MEY MADDOX When Within 2-4 days Where: [address] [place] [phone] Allergies Crestor (Myalgia) Demerol HCl (SEVERE N/V) Epinephrine (SEVERE SHAKING) Iodine (HIVES) Medications Please ask your primary doctor or pharmacist before taking any other medication not listed, including over the counter drugs, herbal medications, vitamins and or supplements as they may interact withyour home medications. What How Much When Why Instructions Last Dose Unchanged aspirin (aspirin 81 mg oral tablet, chewable) 1 tab(s) by mouth Every day Duration: 90 Days Unchanged atorvastatin (atorvastatin 80 mg oral tablet) 1 tab(s) by mouth Once a day Duration: 90 Days Unchanged bisoprolol (bisoprolol 5 mg oral tablet) 1 tab(s) by mouth Once a day Unchanged DME (DME MISCellaneous) See instructions dx E11.65, Z79.4; check BGT 4 times per day, injects insulin 4x per day; dispense 150 test strips, 11 refills Unchanged DME (DME MISCellaneous) See instructions Diabetes mellitus out of control dx E11.65; doses inslulin 4x/ day, dispense 150 pen needles (5mm 31 G) with 11 refills. Unchanged escitalopram (Lexapro 10 mg oral tablet) 1 tab(s) by mouth Once a day Major depression, recurrent Duration: 30 Days Unchanged glucagon (Gvoke HypoPen One Pack 0.5 mg/ 0.1 mL subcutaneous solution) 0.1 Milliliter Subcutaneous As Directed as needed for for low blood sugar Unchanged insulin aspart-insulin aspart protamine (Novolog Mix 70/ 30) (NovoLOG Mix 70/ 30 FlexPen 3 mL Pen) 14 unit(s) Subcutaneous Two (2) times a day sliding scale up to 14 units BID IF BGT <150 no insulin BGT 150-200 take 4 units BGT 201-250 take 6 units BGT 251-300 take 8 units BGT 301-350 take 10 units BGT 351-400 take 12 units BGT 401 or higher take 14 units Unchanged lisinopril (lisinopril 40 mg oral tablet) 1 tab(s) by mouth Once a day Duration: 90 Days Please take this list to your next doctor s visit. Bring all medications you take, including over the counter medications, herbals and other supplements with you to your doctor s visit. Patients and families are reminded to discard old lists and to update any records with all medication providers or retail pharmacies. Education Materials Headache, Unspecified A number of things can cause headaches. The cause of your headache isn t clear. But it doesn t seemto be a sign of any serious illness. Headache affects almost everyone at some time. It is the most common reason people miss days from work or school. You could have a tension headache or a migraine headache. Stress can cause a tension headache. This can happen if you tense the muscles of your shoulders, neck, and scalp without knowing it. If this stress lasts long enough, you may develop a tension headache. It is not clear why migraines occur, but certain things called triggers can raise the risk of having a migraine attack. Migraine triggers may include emotional stress or depression, or by hormone changes during the menstrual cycle. Other triggers include control pills and other medicines, alcohol or caffeine, foods with tyramine (such as aged cheese, wine), eyestrain, weather changes, missed meals, and lack of sleep or oversleeping. Other causes of headache include: Viral illness with high fever Head injury with concussion Sinus, ear, or throat infection Dental pain and jaw joint (TMJ) pain More serious but less common causes of headache include stroke, brain hemorrhage, brain tumor, meningitis, and encephalitis. Home care Follow these tips when taking care of yourself at home: Don t drive yourself home if you were given pain medicine for your headache. Instead, have someone else drive you home. Try to sleep when you get home. You should feel much better when you wake up. Apply heat to the back of your neck to ease a neck muscle spasm. Take care of a migraine headache by putting an ice pack on your forehead or at the base of your skull. If you have nausea or vomiting, eat a light diet until your headache eases. If you have a migraine headache, use sunglasses when in the daylight or around bright indoor lighting until your symptoms get better. Bright glaring light can make this type of headache worse. Follow-up care Follow up with your healthcare provider, or as advised. Talk with your provider if you have frequent headaches. He or she can help figure out a treatment plan. By knowing the earliest signs of headache, and starting treatment right away, you may be able to stop the pain yourself. When to seek medical advice Call your healthcare provider right away if any of these occur: Your head pain suddenly gets worse after sexual intercourse or strenuous activity Your head pain doesn t get better within 24 hours You aren t able to keep liquids down (repeated vomiting) Fever of 100.4 F (38 C) or higher, or as directed by your healthcare provider Stiff neck Extreme drowsiness, confusion, or fainting Dizziness or dizziness with spinning sensation (vertigo) Weakness in an arm or leg or one side of your face You have trouble talking or seeing [id number] [employer]. [address] [place] [address], [place] [address]. All rights reserved. This information is not intended as a substitute for professional medical care. Always follow yourhealthcare professional's instructions. Additional Information VACCINATE! IT SAVES LIVES! Members of the community who have not yet received the COVID-19 vaccine and would like to receive it can visit one of [facility] vaccine clinics. There are many vaccine clinic locations within the [facility]. For locations and available times, please visit www.gettheshot.coronavirus.[place].gov/. It is important to note that some COVID mobile vaccine clinics are held outdoors and may be canceled in rainy or stormy conditions. To learn more about pediatric vaccinations (ages 5-11), we invite you to visit the [facility] webpage. https://www.[email or web address]/pages/[email or web address]-Ydohd-Nifgtxspdyb-Zzqegsghni-Twjsz-[email or web address] stions.htmlTo learn more about the COVID-19 vaccine, we invite you to visit the CDC website for a list of frequently asked questions. https://www.cdc.gov/coronavirus/2019-ncov/vaccines/faq.html [facility] Patient Portal Access Instructions: Stay connected with your healthcare team and access your personal medical information anytime with the [facility] Patient Portal. If you would like a full copy of your medical records please contact the [facility] Medical Records Department Sunday through Sunday between 8a.m. and 4:30p.m. Please follow the directions below to access the portal: 1.Access the email account you provided upon registration to the [facility].2.Look for an invitation email from [facility].3.Open the email and access the invitation link: [facility].Fill in the required christian to create your account. Sign into [email or web address] with your username and password that you created in the above steps to stay up to date. You can then view a summary of results, a summary of your visits, and the ability to download your summaries to your computer or send the information securely to a physician. Remember that your healthcare information is confidential, so carefully consider who you will allow to register on the [facility] Patient Portal for access to your information. You can also access the [facility] Patient Portal on the [employer]. Simply click on Health Records under [employer] and then click on the [employer] logo. HOW TO SAFELY DISPOSE OF PRESCRIPTION MEDICATIONS Please use one of the following methods to safely dispose of your unused medications. 1.Use a drug disposal kit: the drug disposal pouch allows you to safely discard your old and unuseddrugs. Ask your nurse to give you one when you are discharged.2.Visit a local take-back location: Many local pharmacies and police departments have programs that collect old and unwanted prescriptiondrugs. Call your local pharmacy or go to http://bit.ly/7R3Ls7l to find one close to you.3.Make use of household items: Use cat litter or old coffee grounds to dispose medications if other options arenot available. Mix your drugs with these household products, seal them in an airtight container andthrow it into the garbage. Call [facility]: [phone] to be sure your drugs can be disposed of in this way. Some medicines may require a different approach.4.Never flush your medications down the toilet. IF YOU HAVE BEEN PRESCRIBED AN OPIOIDS FOR PAIN If you have been prescribed an opioid (such as hydrocodone, oxycodone or morphine), it is critical to understand the possible side effects and risks of opioid pain medications. Even when taken as directed, opioids can have several side effects including: Tolerance, meaning you might need to take more of a medication for the same pain relief. Nausea, vomiting and/or constipation. Sleepiness, dizziness, dry mouth, confusion, depression or itching. Physical dependence, meaning you have withdrawal symptoms when a medication is stopped ? this can develop within a few days. KNOW YOUR RESPONSIBILITIES It is important to know exactly how much and how often to take the opioid pain medications you are prescribed. Never take opioids in higher amounts or more often than prescribed. Do not combine opioids with alcohol or other drugs that cause drowsiness, such as benzodiazepines, also known as benzos,including diazepam and alprazolam, muscle relaxants or sleep aids. Never sell or share prescriptionopioids. This is illegal. Store opioids in a secure place and out of reach of others (including children, family, friends and visitors). The last page(s) of this document has been signed and retained as a CHART COPY Signatures Patient Education Materials Headache, Unspecified Medication Leaflets My discharge plan and instructions have been reviewed and explained to me and IJOÃO BRIGITTE D understand my current condition and have read and understand these discharge instructions. I have received a written copy of the plan/instructions. If I have questions, I am aware that I should contact my doctor. 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 Automated exposure control, iterative reconstruction, and/or weight based adjustment of the mA/kV was utilized to reduce the radiation dose to as low as reasonably achievable. COMPARISON: None. HISTORY: ORDERING SYSTEM PROVIDED HISTORY: Reason for Exam: C/o left sided BAUM for 2 days. Reports hx of migraines. Denies vision changes. Hx of stroke last year. Hx of breast CA. pain FINDINGS: BRAIN/VENTRICLES: There is no acute intracranial hemorrhage, mass effect or midline shift. No abnormal extra-axial fluid collection. The dasilva-white differentiation is maintained without evidence of an acute infarct. There is no evidence of hydrocephalus. ORBITS: The visualized portion of the orbits demonstrate no acute abnormality. SINUSES: The visualized paranasal sinuses and mastoid air cells demonstrate no acute abnormality. SOFT TISSUES/SKULL: No acute abnormality of the visualized skull or soft tissues. IMPRESSION: No acute intracranial abnormality. Interpreted by: Caleb Youngblood MD Preliminary Report By: Caleb Youngblood MD Electronically signed By Caleb Youngblood MD Dictated Date: 01/26/2023 5:59:54 AM Prelim Date: 01/26/2023 6:03:14 AM Sign Date: 01/26/2023 6:03:14 AM [facility] Hospital Discharge instructions Patient Education 12/27/2022 19:54:32 Laceration: All Closures Laceration: All Closures A laceration is a cut through the skin. This will usually require stitches (sutures) or megan if it is deep. Minor cuts may be treated with a surgical tape closure or skin glue. Home care Your healthcare provider may prescribe an antibiotic. This is to help prevent infection. Follow allinstructions for taking this medicine. Take the medicine every day until it is gone or you are toldto stop. You should not have any left over. The healthcare provider may prescribe medicines for pain. If no pain medicines were prescribed, youcan use iakg-uue-frhpssi pain medicines. Follow instructions for taking any pain medicines. (Note: If you have chronic liver or kidney disease, or ever had a stomach ulcer or gastrointestinal bleeding, talk with your doctor before using these medicines.) Follow the healthcare provider s instructions on how to care for the cut. Keep the wound clean and dry. Do not get the wound wet until you are told it is OK to do so. If thearea gets wet, gently pat it dry with a clean cloth. Replace the wet bandage with a dry one. If a bandage was applied and it becomes wet or dirty, replace it. Otherwise, leave it in place for the first 24 hours. Caring for sutures or megan: Once you no longer need to keep them dry, clean the wound daily. First, remove the bandage. Then wash the area gently with soap and warm water, or as directed by the healthcare provider. Use a wet cotton swab to loosen and remove any blood or crust that forms. After cleaning, apply a thin layer of antibiotic ointment if advised. Then put on a new bandage unless you are told not to. Caring for skin glue: Don t put apply liquid, ointment, or cream on the wound while the glue is in place. Avoid activities that cause heavy sweating. Protect the wound from sunlight. Do not scratch, rub, or pick at the adhesive film. Do not place tape directly over the film. The glue should peel off within 5 to 10 days. Caring for surgical tape: Keep the area dry. If it gets wet, blot it dry with a clean towel. Surgical tape usually falls off within 7 to 10 days. If it has not fallen off after 10 days, you can take it off yourself. Put mineral oil or petroleum jelly on a cotton ball and gently rub the tape until it is removed. Once you can get the wound wet, you may shower as usual but do not soak the wound in water (no tub baths or swimming) Even with proper treatment, a wound infection may sometimes occur. Check the wound daily for signs of infection listed below. Scalp wounds During the first 2 days, you may carefully rinse your hair in the shower to remove blood, glass or dirt particles. After two days, you may shower and shampoo your hair normally. Do not soak your scalp in the tub or go swimming until the stitches or megan have been removed. Talk with your healthcare provider before applying any antibiotic ointment to the wound. Mouth wounds Eat soft foods to reduce pain. If the cut is inside of your mouth, clean by rinsing after each mealand at bedtime with a mixture of equal parts water and hydrogen peroxide (do not swallow!). Or, youcan use a cotton swab to directly apply hydrogen peroxide onto the cut. You may also be prescribed a chlorhexidine solution to rise with. Mouth wounds can be painful when eating. You may use an [id number]-yrgdjsp local numbing solution for pain relief. If this is not available, you may use any numbing solution intended for teething babies. You may apply this directly to the sores with a cotton-tip swab or with your finger. Follow-up care Follow up with your healthcare provider as advised. Ask your healthcare provider how long sutures should be left in place. Be sure to return for suture removal as directed. If dissolving stitches were used in the mouth, these should fall out or dissolve without the need for removal. If tape closures were used, remove them yourself when your provider recommends if they have not fallen off on theirown. If skin glue was used, the film will wear off by itself. Generally, you should keep healing wounds out of direct sunlight for the first couple of months to try to lessen scarring. When to seek medical advice Call your healthcare provider right away if any of these occur: Signs of infection, including increasing pain in the wound, increasing wound redness or swelling, or pus or bad odor coming from the wound Fever of 100.4 F (38. C) or higher, or as directed by your healthcare provider Stitches or megan come apart or fall out or surgical tape falls off before 7 days Wound edges reopen Wound changes colors Numbness around the wound after any numbing medicine should have worn off Decreased movement around the injured area Call 911 Call 911 if you can't control the wound bleeding with direct pressure. [id number] [employer]. [address] [place] [address], [place] [address]. All rights reserved. This information is not intended as a substitute for professional medical care. Always follow yourhealthcare professional's instructions. Follow Up Care 12/27/2022 17:33:24 With:MEDARDO GARCIA Address: [address] [place] [address] [place] [address] [phone] Business (1) When:2-4 days [facility] 09-13-2023 Note Discharge Instructions Thank you for allowing [facility] to assist you with your healthcare needs. The following is importantdischarge information regarding your hospital visit. Diagnosis from Today's Visit Dehydration Hyperglycemia Laceration of head What to Do Next Instructions from Your Care Team Your sutures will need removed in 5 to 7 days. Return to the emergency department with any worsening symptoms or any other concerns. Follow-up with your physician in 2 to 3 days. No qualifying data available. Post Acute Orders No qualifying data available. You Need to Schedule the Following Appointments Follow Up with MEDARDO GARCIA When Within 2-4 days Where: [address] [facility] [place] [address]- [phone] Business (1) Allergies Crestor (Myalgia) Demerol HCl (SEVERE N/V) Epinephrine (SEVERE SHAKING) Iodine (HIVES) Immunizations This Visit Given Vaccine Datetetanus/diphth/pertuss (Tdap) adult/adol 12/27/2022 Medications Please ask your primary doctor or pharmacist before taking any other medication not listed, including over the counter drugs, herbal medications, vitamins and or supplements as they may interact withyour home medications. Please take this list to your next doctor s visit. Bring all medications you take, including over the counter medications, herbals and other supplements with you to your doctor s visit. Patients and families are reminded to discard old lists and to update any records with all medication providers or retail pharmacies. Education Materials Laceration: All Closures A laceration is a cut through the skin. This will usually require stitches (sutures) or megan if it is deep. Minor cuts may be treated with a surgical tape closure or skin glue. Home care Your healthcare provider may prescribe an antibiotic. This is to help prevent infection. Follow allinstructions for taking this medicine. Take the medicine every day until it is gone or you are toldto stop. You should not have any left over. The healthcare provider may prescribe medicines for pain. If no pain medicines were prescribed, youcan use nrso-tts-esdfgja pain medicines. Follow instructions for taking any pain medicines. (Note: If you have chronic liver or kidney disease, or ever had a stomach ulcer or gastrointestinal bleeding, talk with your doctor before using these medicines.) Follow the healthcare provider s instructions on how to care for the cut. Keep the wound clean and dry. Do not get the wound wet until you are told it is OK to do so. If thearea gets wet, gently pat it dry with a clean cloth. Replace the wet bandage with a dry one. If a bandage was applied and it becomes wet or dirty, replace it. Otherwise, leave it in place for the first 24 hours. Caring for sutures or megan: Once you no longer need to keep them dry, clean the wound daily. First, remove the bandage. Then wash the area gently with soap and warm water, or as directed by the healthcare provider. Use a wet cotton swab to loosen and remove any blood or crust that forms. After cleaning, apply a thin layer of antibiotic ointment if advised. Then put on a new bandage unless you are told not to. Caring for skin glue: Don t put apply liquid, ointment, or cream on the wound while the glue is in place. Avoid activities that cause heavy sweating. Protect the wound from sunlight. Do not scratch, rub, or pick at the adhesive film. Do not place tape directly over the film. The glue should peel off within 5 to 10 days. Caring for surgical tape: Keep the area dry. If it gets wet, blot it dry with a clean towel. Surgical tape usually falls off within 7 to 10 days. If it has not fallen off after 10 days, you can take it off yourself. Put mineral oil or petroleum jelly on a cotton ball and gently rub the tape until it is removed. Once you can get the wound wet, you may shower as usual but do not soak the wound in water (no tub baths or swimming) Even with proper treatment, a wound infection may sometimes occur. Check the wound daily for signs of infection listed below. Scalp wounds During the first 2 days, you may carefully rinse your hair in the shower to remove blood, glass or dirt particles. After two days, you may shower and shampoo your hair normally. Do not soak your scalp in the tub or go swimming until the stitches or megan have been removed. Talk with your healthcare provider before applying any antibiotic ointment to the wound. Mouth wounds Eat soft foods to reduce pain. If the cut is inside of your mouth, clean by rinsing after each mealand at bedtime with a mixture of equal parts water and hydrogen peroxide (do not swallow!). Or, youcan use a cotton swab to directly apply hydrogen peroxide onto the cut. You may also be prescribed a chlorhexidine solution to rise with. Mouth wounds can be painful when eating. You may use an epxs-fen-jdnrryi local numbing solution for pain relief. If this is not available, you may use any numbing solution intended for teething babies. You may apply this directly to the sores with a cotton-tip swab or with your finger. Follow-up care Follow up with your healthcare provider as advised. Ask your healthcare provider how long sutures should be left in place. Be sure to return for suture removal as directed. If dissolving stitches were used in the mouth, these should fall out or dissolve without the need for removal. If tape closures were used, remove them yourself when your provider recommends if they have not fallen off on theirown. If skin glue was used, the film will wear off by itself. Generally, you should keep healing wounds out of direct sunlight for the first couple of months to try to lessen scarring. When to seek medical advice Call your healthcare provider right away if any of these occur: Signs of infection, including increasing pain in the wound, increasing wound redness or swelling, or pus or bad odor coming from the wound Fever of 100.4 F (38. C) or higher, or as directed by your healthcare provider Stitches or megan come apart or fall out or surgical tape falls off before 7 days Wound edges reopen Wound changes colors Numbness around the wound after any numbing medicine should have worn off Decreased movement around the injured area Call 911 Call 911 if you can't control the wound bleeding with direct pressure. [phone] [employer]. [address] [place] [address], [place] [address]. All rights reserved. This information is not intended as a substitute for professional medical care. Always follow yourhealthcare professional's instructions. Additional Information VACCINATE! IT SAVES LIVES! Members of the community who have not yet received the COVID-19 vaccine and would like to receive it can visit one of [facility] vaccine clinics. There are many vaccine clinic locations within the [facility]. For locations and available times, please visit www.gettheshot.coronavirus.[place].gov/. It is important to note that some COVID mobile vaccine clinics are held outdoors and may be canceled in rainy or stormy conditions. To learn more about pediatric vaccinations (ages 5-11), we invite you to visit the [facility] webpage. https://www.[facility].org/pages/9431-Ibcjl-Lltgncrbumu-Ovsmujfchq-Aiizm-Lft stions.htmlTo learn more about the COVID-19 vaccine, we invite you to visit the CDC website for a list of frequently asked questions. https://www.cdc.gov/coronavirus/2019-ncov/vaccines/faq.html [facility] Patient Portal Access Instructions: Stay connected with your healthcare team and access your personal medical information anytime with the [facility] Patient Portal. If you would like a full copy of your medical records please contact the [facility] Medical Records Department Sunday through Sunday between 8a.m. and 4:30p.m. Please follow the directions below to access the portal: 1.Access the email account you provided upon registration to the [facility].2.Look for an invitation email from [facility].3.Open the email and access the invitation link: Accept Invitation to [facility].Fill in the required christian to create your account. Sign into [email or web address] with your username and password that you created in the above steps to stay up to date. You can then view a summary of results, a summary of your visits, and the ability to download your summaries to your computer or send the information securely to a physician. Remember that your healthcare information is confidential, so carefully consider who you will allow to register on the [facility] Patient Portal for access to your information. You can also access the [facility] Patient Portal on the [employer]. Simply click on Health Records under [employer] and then click on the [employer] logo. HOW TO SAFELY DISPOSE OF PRESCRIPTION MEDICATIONS Please use one of the following methods to safely dispose of your unused medications. 1.Use a drug disposal kit: the drug disposal pouch allows you to safely discard your old and unuseddrugs. Ask your nurse to give you one when you are discharged.2.Visit a local take-back location: Many local pharmacies and police departments have programs that collect old and unwanted prescriptiondrugs. Call your local pharmacy or go to http://Crocs.[employer]Pharma/0S1Rf6n to find one close to you.3.Make use of household items: Use cat litter or old coffee grounds to dispose medications if other options arenot available. Mix your drugs with these household products, seal them in an airtight container andthrow it into the garbage. Call [facility]: [phone] to be sure your drugs can be disposed of in this way. Some medicines may require a different approach.4.Never flush your medications down the toilet. IF YOU HAVE BEEN PRESCRIBED AN OPIOIDS FOR PAIN If you have been prescribed an opioid (such as hydrocodone, oxycodone or morphine), it is critical to understand the possible side effects and risks of opioid pain medications. Even when taken as directed, opioids can have several side effects including: Tolerance, meaning you might need to take more of a medication for the same pain relief. Nausea, vomiting and/or constipation. Sleepiness, dizziness, dry mouth, confusion, depression or itching. Physical dependence, meaning you have withdrawal symptoms when a medication is stopped ? this can develop within a few days. KNOW YOUR RESPONSIBILITIES It is important to know exactly how much and how often to take the opioid pain medications you are prescribed. Never take opioids in higher amounts or more often than prescribed. Do not combine opioids with alcohol or other drugs that cause drowsiness, such as benzodiazepines, also known as benzos,including diazepam and alprazolam, muscle relaxants or sleep aids. Never sell or share prescriptionopioids. This is illegal. Store opioids in a secure place and out of reach of others (including children, family, friends and visitors). The last page(s) of this document has been signed and retained as a CHART COPY Signatures Patient Education Materials Laceration: All Closures Medication Leaflets My discharge plan and instructions have been reviewed and explained to me and IJOÃO BRIGITTE D understand my current condition and have read and understand these discharge instructions. I have received a written copy of the plan/instructions. If I have questions, I am aware that I should contact my doctor. 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 On thinners. No LOC. Current HTN Altered mental status FINDINGS: Cardiomediastinal silhouette is unchanged in size. Costophrenic angles are sharp. No radiographic pneumothorax. No focal consolidation. Similar appearing reticular interstitial markings. Osseous structures are grossly unchanged. IMPRESSION: No focal consolidation. Interpreted by: Burt Phan Preliminary Report By: Burt Phan Electronically signed By Burt Phan Dictated Date: 12/27/2022 6:15:15 PM Prelim Date: 12/27/2022 6:17:13 PM Sign Date: 12/27/2022 6:17:13 PM Ordering Provider: RO [facility]09-13-2023 Note ORIGINAL EXAMINATION: CT OF THE CERVICAL SPINE WITHOUT CONTRAST 12/27/2022 6:18 pm TECHNIQUE: CT of the cervical spine was performed without the administration of intravenous contrast. Multiplanar reformatted images are provided for review. Automated exposure control, iterative reconstruction, and/or weight based adjustment of the mA/kV was utilized to reduce the radiation dose to as low as reasonably achievable. COMPARISON: None. HISTORY: ORDERING SYSTEM PROVIDED HISTORY: Reason for Exam: Pt got dizzy falling out of her car and fell and hit the back of her head on the cement. On thinners. No LOC. Current HTN Altered mental status FINDINGS: BONES/ALIGNMENT: There is no acute fracture or traumatic malalignment. DEGENERATIVE CHANGES: Multilevel degenerative changes of the spine. No high-grade spinal canal stenosis. SOFT TISSUES: There is no prevertebral soft tissue swelling. IMPRESSION: No acute fracture of the cervical spine. Interpreted by: Burt Phan Preliminary Report By: Burt Phan Electronically signed By Burt Phan Dictated Date: 12/27/2022 6:19:41 PM Prelim Date: 12/27/2022 6:23:50 PM Sign Date: 12/27/2022 6:23:50 PM Ordering Provider: [facility]09-13-2023 Note ORIGINAL EXAMINATION: CT OF THE HEAD WITHOUT CONTRAST 12/27/2022 6:13 pm TECHNIQUE: CT of the head was performed without the administration of intravenous contrast. Automated exposure control, iterative reconstruction, and/or weight based adjustment of the mA/kV was utilized to reduce the radiation dose to as low as reasonably achievable. COMPARISON: 05/02/2021 HISTORY: ORDERING SYSTEM PROVIDED HISTORY: Reason for Exam: Pt got dizzy falling out of her car and fell and hit the back of her head on the cement. On thinners. No LOC. Current HTN Altered mental status FINDINGS: BRAIN/VENTRICLES: There is no acute intracranial hemorrhage, mass effect or midline shift. No abnormal extra-axial fluid collection. The dasilva-white differentiation is maintained without evidence of a large vessel territorial acute infarct. There is no evidence of hydrocephalus. 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 The ventricles are mildly enlarged with commensurate enlargement of the sulci most consistent with global parenchymal volume loss. Carotid siphon and left vertebral artery calcifications are present. Scattered small old bilateral basal ganglia hypodensities. ORBITS: The visualized portion of the orbits demonstrate no acute abnormality. Bilateral orbital lens implants. SINUSES: The visualized paranasal sinuses and mastoid air cells demonstrate no acute abnormality. SOFT TISSUES/SKULL: Left parietal scalp soft tissue contusion/laceration. No underlying calvarial fracture. IMPRESSION: No acute intracranial hemorrhage. I have personally reviewed the images of this examination and agree with the resident's findings and interpretation. Interpreted by: Burt Phan Preliminary Report By: Gael Moreno Electronically signed By Burt Phan Dictated Date: 12/27/2022 6:15:45 PM Prelim Date: 12/27/2022 6:22:31 PM Sign Date: 12/27/2022 6:25:47 PM Ordering Provider: RO [facility]09-13-2023 Evaluation + Plan note Diagnostic Tests Pending * B-Hydroxybutyrate 12/27/22 Future Scheduled Tests Laboratory* Thyroid Stimulating Hormone 04/04/22 * A1C Hemoglobin 04/04/22 * Complete Blood Count 04/04/22 * Lipid Profile 04/04/22 * Hepatitis C Antibody IgG 04/04/22 * Microalbumin Level Urine 04/04/22 * Complete Metabolic Panel 04/04/22 Radiology* BD Bone Density DEXA Axial Skeleton 04/04/22 [facility] 05-05-2023 SARS-CoV-2 (COVID-19) RNA ANTHONY+probe Ql (Nph) Negative *NA* (08/18/22 11:19 AM)AO Auto Urine [id number] Evaluation + Plan note Future Scheduled Tests Laboratory* Thyroid Stimulating Hormone 04/04/22 * A1C Hemoglobin 04/04/22 * Complete Blood Count 04/04/22 * Lipid Profile 04/04/22 * Hepatitis C Antibody IgG 04/04/22 * Microalbumin Level Urine 04/04/22 * Complete Metabolic Panel 04/04/22 Radiology* BD Bone Density DEXA Axial Skeleton 04/04/22 [facility] 06-14-2022 NoteHNO ID: [id number] Author: Annette Lr APRN.CALL OUT CLERK Service: ? Author Type: Nurse Practitioner Type: Progress Notes Filed: 09/27/2021 10:02 AM Note Text: Patient came in with caregiver. Fell and hit her head. Is on a blood thinner and has severe bruising and swelling around eye accompanied by a severe headache. Patient caregiver is going to take her to the ER.[facility]06-14-2022 History of Present illness Narrative* Annette Lr APRN.CALL OUT CLERK - 09/27/2021 10:00 AM EDT Patient came in with caregiver. Fell and hit her head. Is on a blood thinner and has severe bruising and swelling around eye accompanied by a severe headache. Patient caregiver is going to take her to the ER. [facility] note Future Appointments Appointment Date:05/31/2021 10:30:00 AM Scheduled Provider:MEDARDO GARCIA DO Location:[facility] Appointment Type:PC OV Follow Up Future Scheduled Tests Radiology* US Thyroid 05/13/20 * US Thyroid 05/12/20 [facility] Evaluation + Plan note Future Appointments Appointment Date:07/19/2021 10:45:00 AM Scheduled Provider:MEDARDO GARCIA DO Location:[facility] Appointment Type:PC OV Follow Up Appointment Date:07/28/2021 01:00:00 PM Scheduled Provider:JENI HARRINGTON MD Location:[facility] Appointment Type:ENDO OV Future Scheduled Tests Radiology* XR Sacrum/Coccyx Minimum 2 Views 06/10/21 * XR Spine Lumbar AP/LAT 06/10/21 [facility] Evaluation + Plan note Future Appointments Appointment Date:09/26/2022 11:00:00 AM Scheduled Provider:MEDARDO GARCIA DO Location:[facility] Appointment Type:PC OV Future Scheduled Tests Laboratory* Thyroid Stimulating Hormone 04/04/22 * A1C Hemoglobin 04/04/22 * Complete Blood Count 04/04/22 * Lipid Profile 04/04/22 * Hepatitis C Antibody IgG 04/04/22 * Microalbumin Level Urine 04/04/22 * Complete Metabolic Panel 04/04/22 Radiology* BD Bone Density DEXA Axial Skeleton 04/04/22 * XR Spine Lumbar W/Obliques 4 Views 10/05/21 [facility] Evaluation + Plan note Future Appointments Appointment Date:09/07/2023 02:30:00 PM Scheduled Provider: Location:[facility] Appointment Type:PT Treatment - [facility] Evaluation + Plan note Future Appointments Appointment Date:02/12/2025 01:00:00 PM Scheduled Provider: Location:[facility] Appointment Type:MEDS - Diabetic Individual Visit Appointment Date:02/20/2025 11:00:00 AM Scheduled Provider:DAVION VARGAS MD Location:[facility] Appointment Type:PM OV Appointment Date:06/12/2025 01:00:00 PM Scheduled Provider:MARCO PENNY Location:[facility] Appointment Type:PC OV Future Scheduled Tests Laboratory* Vitamin B1 (Thiamine), Blood 07/29/24 * Folate Level 07/29/24 * Thyroid Stimulating Hormone 07/29/24 * Vitamin B12 Level 07/29/24 * A1C Hemoglobin 07/29/24 * Complete Blood Count 07/29/24 * Lipid Profile 07/29/24 * Albumin/Creatinine Ratio, Random Urine 07/29/24 * PTH, Intact 07/29/24 * Vitamin D Level 07/29/24 * Complete Metabolic Panel 07/29/24 [facility] Evaluation noteNo assessment information available [facility] Work Phone: Evaluation note* Diagnosis Injury of head, initial encounter- Primary [facility] N[facility]ative No data available for this section [facility] Hospital Discharge instructions No data available for this section [facility] Progress note No data available for this section [facility] Chief Complaint and Reason for Visit Chief Complaint CAROTID STENOSIS, TI A FALL Chief Complaint PRE OP Advance Directives No Advanced Directives Records Found Advance Directive Response Recorded Date/ Time Advance Directives No March 20, 2017 8:00am Living Will No September 27, 2021 10:23am Power of Clay Shop Supervisor No September 27 10:23am Summary Purpose Family History No Family History Records Found No data available for this section No data available for this section No data available for this section No data available for this section No data available for this section No data available for this section No data available for this section No data available for this section No data available for this section No data available for this section No Family History Records Found No data available for this section No data available for this section No Family History Records Found No data available for this section No Family History Records Found Additional Source Comments Care Team (unrecognized sect ion and content) Establishment Guide Relationship Specialty Start Date End Date Medardo Garcia IV, MD [address] [place] [address] PCP - General Family Practice 09/27/21 Team Status: Active Member Role Status Dates Dr. Cosme High , DO Family Provider Active Dr. Medardo Garcia , DO Primary Care Provider Active Team Status: Inactive Member Role Status Dates Dr. Medardo Garcia , DO Primary Care Provider Active Dr. Edis Martinez MD Attending Provider, Referring Pr ovider Active Goals (unrecognized section and content) Goals may be documented in a n alternate section Source Comments (unrecognize d section and content) In the event this informatio n is protected by the Federal Confidentiality of Alcohol and Drug Abuse Patient Records regulations: The Federal rules restrict any use of the information to criminally investigate or prosecute any alcohol or drug abuse patient.[facility] INFORMATION SOURCE (unrecogn ized section and content) DATE CREATED AUTHOR 09/28/2021 [facility] DATE CREATED AUTHOR AUTHOR'S ORGANIZ ATION 12/18/2023 [facility] ([place]) DATE CREATED AUTHOR AUTHOR'S ORGANIZ ATION 06/12/2024 [facility] DATE CREATED AUTHOR AUTHOR'S ORGANIZ ATION 02/13/2025 [facility] FOR RECORDS PERTAINING TO PATIENTS WHO ARE OR HAVE BEEN ENROLLED IN A CHEMICAL DEPENDENCY/SUBSTANCEABUSE PROGRAM, SOME INFORMATION MAY BE OMITTED. This clinical summary was aggregated from multiple sources. Caution should be exercised in using it in the provision of clinical care. This summary normalizes information from multiple sources, and as a consequence, information in this document may materially change the coding, format and clinical context of patient data. In addition, data may be omitted in some cases. CLINICAL DECISIONS SHOULD BE BASED ON THE PRIMARY CLINICAL RECORDS. [employer] [facility]. provides no warranty or guarantee of the accuracy or completeness of information in this document.
[2025-03-20 19:43] VITALS: BMI 24.7
[2025-03-20 20:00] VITALS: BP 199/68; PULSE 71; RESP 18; TEMP 36.8; O2SAT 95
--- NOTE | 2025-03-20 20:05 | PCM.HP.STD ---
HPI - General General Date of Admission: 03/20/25 Date of Service: 03/20/25 Chief Complaint: Slurred speech for few days. HPI Narrative ALEXUS MOYER, is a 89 F is directly admitted from [facility] ER after she was found to have slurred speech for 2 to 3 days ago and BP 250/90. She was given 1 dose of IV hydralazine and blood pressure dropped to 150s/80. She also has chronic right arm numbness and tingling with history of chronic cervical neuropathy. Actually she went to outside office for pain injection in the neck but it was canceled due to high blood pressure And was sent to ED. NIH was found 0. She states he had a TIA about 2 to 4 years ago with incomprehensible speech that resolved on its own. This time she states she does not have a problem understanding the speech or forming sentence or word vocabulary but verbal output speech quality is not comprehensible. Denies dysarthria or dysphagia. On the floor BP was 199/68. CT head does not show acute intracranial change and chest x-ray did not show any acute cardiopulmonary change. [facility] Medical History Diabetes Hypertension Hyperlipidemia Home Medications ?Medication ?Instructions ?Recorded ?Last Taken ?Type aspirin 81 mg chewable tablet 81 mg PO DAILY 03/19/17 03/20/17 History bisoprolol 5 1 tab PO DAILY 03/19/17 03/20/17 History mg-hydrochlorothiazide 6.25 mg tablet calcium 500 mg 1 ea PO DAILY 03/19/17 Unknown History (carb,gluconate)-magnesium 250 mg (gluc,oxide) tablet diphenhydramine HCl 25 mg capsule 50 mg PO QHS 03/19/17 Unknown History furosemide 20 mg tablet 20 mg PO DAILY PRN swelling 03/19/17 Unknown History insulin glargine 100 unit/mL 14 unit SQ BID 03/19/17 Unknown History subcutaneous solution (Lantus U-100 Insulin) lisinopril 40 mg tablet 40 mg PO DAILY 03/19/17 03/20/17 History methocarbamol 500 mg tablet 500 mg PO Q6H PRN PRN Muscle Spasm 03/19/17 Unknown History vitamin E 268 mg (400 unit) capsule 400 unit PO BID 03/19/17 Unknown History Allergy/AdvReac Type Severity Reaction Status Date / Time rosuvastatin (From Crestor) Allergy Intermediate myalgia Verified 03/20/25 20:56 bupivacaine (From Allergy Unknown Verified 09/27/21 10:10 Sensorcaine/Epinephrine) epinephrine (From Allergy Unknown Verified 09/27/21 10:10 Sensorcaine/Epinephrine) iodine Allergy Unknown Verified 09/27/21 10:10 meperidine (From Demerol) Allergy Unknown Verified 09/27/21 10:10 Social History Smoking Status: Never smoker ROS ROS Narrative Constitutional: Reports fatigue and weakness. No fever. HEENT: Reports systems reviewed and no addt'l complaints, except as documented Respiratory/Chest: No acute shortness of breath or respiratory distress or wheezing. Denies chronic lung disease CVS: No chest pain. Denies chronic cardiac disease. Gastrointestinal: Denies coffee ground emesis, hematemesis or vomiting Genitourinary: Denies burning urination or new urinary tract symptoms Musculoskeletal: Mild bilateral chronic weakness of lower extremity left more than right and knee arthritis. Denies acute joint pain or limited range of motion. No acute injury Neurologic: Denies seizure-like symptoms. Rest as described in HPI skin: No ulcer. No rash Endocrinology: Reports systems reviewed and no addt'l complaints, except as documented Hematologic/Lymphatic: Reports systems reviewed and no addt'l complaints, except as documented Rest 14 ROS are negative except as mentioned in HPI Physical Exam Narrative General: Alert, Oriented x3, Cooperative HEENT: Atraumatic, PERRLA, EOMI, Normocephalic. Oral: No Gingival or Mucosal Lesions/ Ulcerations Neck: Supple, No JVD, Negative Carotid Bruits Chest wall/Lungs: Air entry equal in bilateral lung bases. No crepitation/rhonchi Cardiovascular: Regular rate and rhythm, Ejection systolic murmur over right second grade 4/6 with radiation to carotid Abdomen: Bowel Sounds Present, Soft, Non Tender, Non-Distended : No dysuria. No renal angle tenderness. No suprapubic tenderness. Extremities: No edema, Capillary Refill Less than 3 Seconds Skin: No rashes, No breakdown Musculoskeletal: No Tenderness to Palpation of Joints or Extremities. Chronic decreased strength in lower extremity left more than right. Neurological: Cranial nerves II-XII grossly intact, DTR 2+/4. Decreased sensation on the right leg, NIH stroke scale 1 Psych/Mental Status: Flat affect Results Lab / Micro Data 03/20/25 20:35 03/20/25 20:35 Assessment & Plan Assessment/Plan (1) Type 2 diabetes mellitus with nephropathy: (2) Slurred speech: PLAN: Plan This 89-year-old female is being admitted for high blood pressure and slurred speech for 2 days 1. Slurred speech, chronic right arm numbness/tingling and bilateral lower extremity weakness, rule out stroke: Patient is being admitted in PCU. CT head did not show acute intracranial abnormality. PT, OT, speech therapy/swallow evaluation and management, nursing NIH stroke scale, BP and glucose monitoring and control as per stroke protocol. Neuro consult after that. TSH, A1c fasting lipid profile tomorrow AM. MRI brain, MRA head and neck and 2D echo with bubble contrast study ordered. 2. 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 urgency: Twelve-lead EKG shows NSR, LVH with repolarization abnormality, LAFB. BP 250/90 decreased to 150/80 after 1 dose of IV enterology. Most recent 199/68, within Istre guideline for patient not receiving thrombolysis. 3. IV contrast iodine allergy: Patient is stated that she had hives and got fainted after IV iodine contrast in the past many years ago. Since then she had never tried IV, contrast therefore MRA head and neck ordered. 4. DM type II: Glucose 201. A1c ordered for tomorrow AM. Accu-Chek before meals and at bedtime with Humalog sliding scale coverage and hypoglycemia protocol. 5. Chronic cervical neuropathy: Supposed to have neck steroid injection today but was canceled because of high blood pressure. She follows outside pain management. 6. DVT prophylaxis: Lovenox 40 mg subcu daily. Living will/advanced directive/end of life care: Patient does have living will or advanced directive. Patient's daughter is power of trademark attorney for health. After discussion of benefits/risks procedures involved with full code, DNR CC arrest and DNR CC, the patient opted for DNR CC arrest with no intubation Patient doesn't want artificial life support including intubation, tube feed, ventilator and/chest compression, central venous catheter, vasopressor and DC shock if needed Total time spent in [id number] encounter in discussion of advanced directive 17 minutes. Charges/Coding Visit Charges Inpatient E&M: 31903 Init Hosp L3 Procedures Hospitalists Procedures: 36031 Advncd Care Plan 30 Min
[2025-03-20 20:53] LABS: Hematocrit 37.9 % (37-47); Hemoglobin 12.8 g/dL (12.0-15.0); Immature Granulocytes Count 0.030 X10^3/uL (0.0-0.0); Mean Corp Hgb Conc 33.8 g/dL (32-36); Mean Corpuscular Volume 89.2 fL (81-99); Mean Platelet Vol. 10.3 fl (6.2-12.0); NRBC Flagged by Analyzer 0 % (0-5); Platelet Count 330 K/mm3 (150-450); RBC Distribution Width CV 13.1 % (11.6-14.6); RBC Distribution Width SD 42.6 fl (35.1-43.9); Red Blood Count 4.25 M/mm3 (4.2-5.4); White Blood Count 10.4 K/mm3 (4.4-11.0)
[2025-03-20 21:13] LABS: Magnesium 2.3 mg/dL (1.5-2.2)
[2025-03-20 21:19] LABS: Anion Gap 14 (5-15); BUN 15 mg/dL (4-19); BUN/Creat Ratio 23.8 RATIO (10-20); Calcium,Total 9.0 mg/dL (7.6-11.0); Carbon Dioxide 19.7 mmol/L (21.0-32.0); Chloride 106 mmol/L (98-108); Cholesterol 275 mg/dL (<=200); Estimated Creatinine Clearance 41.17 ml/min (50-250); Glucose 192 mg/dL (70-99); Low Density Lipoprotein Calc. 199 mg/dL; Potassium 3.5 mmol/L (3.3-5.1); Triglycerides 108 mg/dL; Very Low Density Lipoprotein 22 mg/dL (5-40); cholesterol:hdl ratio screen 4.82
--- OUTSIDE RECORDS SUMMARY | 2025-03-20 21:19 | XMS RPT_ITS | CCD ---
Author Organization [facility] Care Team Providers Care Elevator Pilot Name Role Phone MEDARDO GARCIA DO Primary Care Physician [phone] Jose WELLS MD, Medardo Primary Care Provider [phone] VARSHA SEQUINS SLINGER-MACHINE PULLER OVER, MEY A Primary Care Physi grey Ben Rounding Nurse, Jermain Unavailable Radha King RN, Marilou Osuna Unavailable Unavailable DEDETTLE DOROEL Attending Unavailable VARSHA SEQUINS SLINGER-MACHINE PULLER OVER, MEY A Primary Care Un available VARSHA SEQUINS SLINGER-MACHINE PULLER OVER, MEY A Attending Un available VARSHA SEQUINS SLINGER-MACHINE PULLER OVER, MEY A Primary Care Un available VENKAT LASSITER MD Consulting Unavailable VARSHA SEQUINS SLINGER-MACHINE PULLER OVER, MEY A Primary Care Un available TAMIKA GRACE MD Admitting Unavailable KOMAL ESTRADA MD Attending Unavailable VARSHA SEQUINS SLINGER-MACHINE PULLER OVER, MEY A Consulting Un available COSME WATSON MD Consulting Unavaila ble VARSHA SEQUINS SLINGER-MACHINE PULLER OVER, MEY A Attending Un available VARSHA SEQUINS SLINGER-MACHINE PULLER OVER, MEY A Primary Care Un available VARSHA SEQUINS SLINGER-MACHINE PULLER OVER, MEY A Primary Care Un available VARSHA SEQUINS SLINGER-MACHINE PULLER OVER, MEY A Attending Un available VARSHA SEQUINS SLINGER-MACHINE PULLER OVER, MEY A Primary Care Un available VARSHA SEQUINS SLINGER-MACHINE PULLER OVER, MEY A Attending Un available JONO VALLES MD Consulting Unavailable VARSHA SEQUINS SLINGER-MACHINE PULLER OVER, MEY A Primary Care Un available SALLY MARQUEZ MD Attending Unavailable TERI HYDE FACP, DESMOND Chambers Admitting Unavail able VARSHA SEQUINS SLINGER-MACHINE PULLER OVER, MEY A Primary Care Un available FARHEEN SEQUINS SLINGER-MACHINE PULLER OVERPANDA Admitting Unavail able O'CLARKE MD, SALLY Attending Unavailable JIMMY HYDE, SALLY Referring Unavailable BRAULIO HYDE, ABHIJEET Bridges Attending Unavail able HALKO DO, MEDARDO Primary Care Unavailable COSME HAGEN DO Attending Unavailable VARSHA SEQUINS SLINGER-MACHINE PULLER OVER, MEY A Primary Care Un available VARSHA SEQUINS SLINGER-MACHINE PULLER OVER, MEY A Primary Care Un available BRAULIO HYDE, ABHIJEET Bridges Attending Unavail able VARSHA SEQUINS SLINGER-MACHINE PULLER OVER, MEY A Primary Care Un available STAN HYDE, NEHAL Cuello Attending Unavailable VARSHA SEQUINS SLINGER-MACHINE PULLER OVER, MEY A Primary Care Un available BRAULIO HYDE, ABHIJEET Bridges Attending Unavail able VARSHA SEQUINS SLINGER-MACHINE PULLER OVER, MEY A Primary Care Un available REGINALD MCCALLUM MD Attending Unavailable ROBERTO HYDE, TAMIKA Consulting Unavailable VARSHA SEQUINS SLINGER-MACHINE PULLER OVER, MEY A Attending Un available VARSHA SEQUINS SLINGER-MACHINE PULLER OVER, MEY A Primary Care Un available Perico Maddox Referring Unavailable Perico Maddox Attending Unavailable Halko, Medardo Primary Care Unavailable Venkat Montano Attending Unavailable Perico Maddox Referring Unavailable Halko, Medardo Primary Care Unavailable BALTES SEQUINS SLINGER-MACHINE PULLER OVER, MARCO Primary Care Physician [phone] BALTES SEQUINS SLINGER-MACHINE PULLER OVER, MARCO Primary Care Unavailsantiago VARGAS MD, DAVION Osuna Attending Unavailable BALTES SEQUINS SLINGER-MACHINE PULLER OVER, MARCO Attending Unavailsantiago e BALTES SEQUINS SLINGER-MACHINE PULLER OVER, MARCO Primary Care Unavailsantiago MADDOX MD, PERICO Will Attending Unavailable VARSHA SEQUINS SLINGER-MACHINE PULLER OVER, MEY A Primary Care Un available Allergies Allergy Classification Reported Allergen(s) Allergy Type Date of Onset Reaction(s) Facility (20 sources) EPINEPHrine; Translations: [Epinephrine preparation (product)] Drug Allergy 2 SEVERE SHAKING, Unknown [facility] (20 sources) Iodine; Translations: [Iodine (substance)] Drug Allergy 2 HIVES, [facility] (19 sources) Meperidine; Translations: [meperidine] Drug Allergy 2 SEVERE N/V, [facility] (17 sources) rosuvastatin; Translations: [rosuvastatin] Drug Allergy Muscle pain (finding) [facility] (2 sources) Bupivacaine Drug Allergy 2 Unknown [facility] (1 source) Bupivacaine Drug Allergy 2 [facility] (1 source) Meperidine Drug Allergy 2 [facility] Medications Current Medications Medication Drug Class(es) Dates Sig (Normalized) Sig (Original) acetaminophen 500 mg oral tablet (7 sources) Start: 11-15-2023 End: 01-12-2024 Tylenol Extra Strength 500 mg oral tablet Dose : 1,000 mg = 2 tab(s), Oral, BID, #### [id number] [place], [place] [address] No Panel Informationon 03-10 Microscopic examination of blood, culture Culture has been received in lab and is no growth to date. Routine cultures are held for [address] [facility] 03-10-2023 Phosphate [Mass/Vol] 3.5 mg/dL Normal 2.4-5.1 [facility] ([place]) Comment on above: Result Comment: No te - New Reference Range in effect 19 Performed By: #### U A, UAMICAO #### [address] [address] [facility]ly [facility] 03-10-2023 Troponin I High Sensitivity 4.93 ng/L Normal 0.00-34.00 [facility] ([place]) Comment on above: Performed By: #### C KMBM, CKMB, TROPHS, PHOS, MG #### [facility] [address] [place] [address] Troponin I High Sensitivity 8.6 ng/L Normal 0.0-51.4 [facility] ([place]) Comment on above: Performed By: #### M DW, TROPHS, ANEU, GFR, CBC, ADIFF, BMP #### [address] [place], [place] [address] UAon 03-10-2023 Color (U) Yellow Normal [facility] ([place]) Comment on above: Performed By: #### U A, UAMICAO #### [place] [address] Glucose (U) [Mass/Vol] 250 mg/dL Abnormal Negative [facility] ([place]) Comment on above: Performed By: #### U A, UAMICAO #### [place] [address] Ketones Ql (U) 15 mg/dL Abnormal Negative [facility] ([place]) Comment on above: Performed By: #### U A, UAMICAO #### [place] [address] UA Appear Slightly Cloudy Abnormal Clear [facility] ([place] Comment on above: Performed By: #### U A, UAMICAO #### [place] [address] UA Blood Negative Normal Negative [facility] ([place]) Comment on above: Performed By: #### U A, UAMICAO #### [place] [address] UA Leuk Est Moderate Abnormal Negative [facility] ([place] Comment on above: Performed By: #### U A, UAMICAO #### [address] [address] UA Nitrite Negative Normal Negative [facility] ([place]) Comment on above: Performed By: #### U A, UAMICAO #### [place] [address] UA pH 5.5 Normal 5.0 - 8.0 [facility] ([place]) Comment on above: Performed By: #### U A, UAMICAO #### [place] [address] UA Protein Negative Normal Negative [facility] ([place] Comment on above: Performed By: #### U A, UAMICAO #### [place] [address] UA Spec Grav 1.015 Normal 1.015-1.025 [facility] ([place]) Comment on above: Performed By: #### U A, UAMICAO #### [address] [place], [place] [address] UA Specimen Type Clean Catch Normal [facility] ([place]) Comment on above: Performed By: #### U A, UAMICAO #### [address] [place], [place] [address] UA Urobilinogen 0.2 E.U./dL Normal 0.2-1.0 [facility] ([place]) Comment on above: Performed By: #### U A, UAMICAO #### [address] [address] Urobilinogen (U) [Mass/Vol] Negative Normal Negative [facility] ([place] Comment on above: Performed By: #### U A, UAMICAO #### [address] [address] XR CHEST 1 VIEWon 03-10-2023 XR CHEST [...] Date: 03/10/2023 10:57:58 AM Ordering Provider: REGINALD Duong [facility] ([place]) XR SPINE LUMBAR AP/LATon XR SPINE LUMBAR [...] 10:37:20 AM Ordering Provider: MEY MADDOX [facility] ([place]) XR KNEE THREE VIEWS LEFTon 1 04-25-2022 [...] 11:26:45 PM Ordering Provider: MEY MADDOX [facility] ([place] XR KNEE THREE VIEWS RIGHTon 02-23-2023 XR [...] 02/23/2023 11:26:45 PM Ordering Provider: MEY MADDOX Normal [facility] ([place]) .Auto Diffon 01-26-2023 Basophil, Absolute 0.1 10 3/mcL Normal 0.0-0.2 [facility] ([place]) Comment on above: Performed By: #### M DW, TROPHS, ANEU, GFR, CBC, ADIFF, BMP #### [address] [address] Basophils/100 WBC (Bld) 1.0 % Normal 0.0-2.5 [facility] ([place]) Comment on above: Performed By: #### M DW, TROPHS, ANEU, GFR, CBC, ADIFF, BMP #### [address] [address] Eosinophil, Absolute 0.2 10 3/mcL Normal 0.0-0.4 [facility] ([place]) Comment on above: Performed By: #### M DW, TROPHS, ANEU, GFR, CBC, ADIFF, BMP #### [address] [address] Eosinophils/100 WBC (Bld) 2.3 % Normal 0.0-7.0 [facility] ([place]) Comment on above: Performed By: #### M DW, TROPHS, ANEU, GFR, CBC, ADIFF, BMP #### [address] [address] Lymphocyte, Absolute 1.8 10 3/mcL Normal 0.8-3.9 [facility] ([place]) Comment on above: Performed By: #### M DW, TROPHS, ANEU, GFR, CBC, ADIFF, BMP #### [address] [address] Lymphocytes/100 WBC (Bld) 19.2 % Normal 10.0-50.0 [facility] ([place]) Comment on above: Performed By: #### M DW, TROPHS, ANEU, GFR, CBC, ADIFF, BMP #### [address] [address] Monocyte, Absolute 0.7 10 3/mcL Normal 0.2-1.0 [facility] ([place]) Comment on above: Performed By: #### M DW, TROPHS, ANEU, GFR, CBC, ADIFF, BMP #### [address] [address] Monocytes/100 WBC (Bld) 7.2 % Normal 1.7-13.0 [facility] ([place] Comment on above: Performed By: #### M DW, TROPHS, ANEU, GFR, CBC, ADIFF, BMP #### [address] [address] Neutrophils/100 WBC (Bld) 70.3 % Normal 37.0-80.0 [facility] ([place]) Comment on above: Performed By: #### M DW, TROPHS, ANEU, GFR, CBC, ADIFF, BMP #### [address] [address] .GFRon 01-26-2023 GFR 82 ml/min/1.73sqm Normal [facility] ([place]) Comment on above: Result Comment: GFR Population [...] TROPHS, ANEU, GFR, CBC, ADIFF, BMP #### [address] [address] GFR Non- 68 ml/min/1.73sqm Normal [facility] ([place] Comment on above: Result Comment: GFR Population [...] TROPHS, ANEU, GFR, CBC, ADIFF, BMP #### [address] [address] .MDWon 01-26-2023 Monocyte Distribution Width 18.98 Normal 0.00-20.00 [facility] ([place]) Comment on above: Result Comment: For ED adult patients suspected of sepsis, MDW<=20.0 does not rule out sepsis or risk of sepsis Performed By: #### M DW, TROPHS, ANEU, GFR, CBC, ADIFF, BMP #### [address] [address] .NEUABSon 01-26-2023 Neutrophil, Absolute 6.8 10 3/mcL High 2.9-6.2 [facility] ([place]) Comment on above: Performed By: #### M DW, TROPHS, ANEU, GFR, CBC, ADIFF, BMP #### [address] [address] BMPon 01-26-2023 BUN/Creatinine Ratio 25 ratio Normal 7-27 [facility] ([place]) Comment on above: Performed By: #### M DW, TROPHS, ANEU, GFR, CBC, ADIFF, BMP #### [address] [address] Calcium [Mass/Vol] 9.1 mg/dL Normal 8.4-10.2 [facility] ([place]) Comment on above: Performed By: #### M DW, TROPHS, ANEU, GFR, CBC, ADIFF, BMP #### [address] [address] Chloride [Moles/Vol] 102 mmol/L Normal 98-107 [facility] ([place]) Comment on above: Performed By: #### M DW, TROPHS, ANEU, GFR, CBC, ADIFF, BMP #### [address] [address] CO2 [Moles/Vol] 27 mmol/L Normal 23-31 [facility] ([place]) Comment on above: Performed By: #### M DW, TROPHS, ANEU, GFR, CBC, ADIFF, BMP #### [address] [address] Creatinine [Mass/Vol] 0.80 mg/dL Normal 0.55-1.02 [facility] ([place]) Comment on above: Performed By: #### M DW, TROPHS, ANEU, GFR, CBC, ADIFF, BMP #### [address] [address] Electrolyte Balance 10.0 mEq/L Normal 4.0-15.0 [facility] ([place]) Comment on above: Performed By: #### M DW, TROPHS, ANEU, GFR, CBC, ADIFF, BMP #### [place] [id number] Glucose [Mass/Vol] 113 mg/dL High 83-110 [facility] ([place]) Comment on above: Performed By: #### M DW, TROPHS, ANEU, GFR, CBC, ADIFF, BMP #### [address] [address] Potassium [Moles/Vol] 3.6 mmol/L Normal 3.5-5.1 [facility] ([place] Comment on above: Performed By: #### M DW, TROPHS, ANEU, GFR, CBC, ADIFF, BMP #### [address] [address] Sodium [Moles/Vol] 139 mmol/L Normal 136-145 [facility] ([place] Comment on above: Performed By: #### M DW, TROPHS, ANEU, GFR, CBC, ADIFF, BMP #### [address] [address] Urea nitrogen [Mass/Vol] 20 mg/dL High 7-18 [facility] ([place] Comment on above: Performed By: #### M DW, TROPHS, ANEU, GFR, CBC, ADIFF, BMP #### [address] [address] CBCon 01-26-2023 Erythrocyte distribution width (RBC) [Ratio] 14.0 % Normal 11.5-14.5 [facility] ([place] Comment on above: Performed By: #### M DW, TROPHS, ANEU, GFR, CBC, ADIFF, BMP #### [address] [address] Hematocrit (Bld) [Volume fraction] 38.4 % Normal 37.0-47.0 [facility] ([place] Comment on above: Performed By: #### M DW, TROPHS, ANEU, GFR, CBC, ADIFF, BMP #### [address] [address] Hgb 13.0 G/dL Normal 12.0-16.0 [facility] ([place] Comment on above: Performed By: #### M DW, TROPHS, ANEU, GFR, CBC, ADIFF, BMP #### [address] [address] MCH (RBC) [Entitic mass] 30.2 pg Normal 27.0-31.2 [facility] ([place]) Comment on above: Performed By: #### M DW, TROPHS, ANEU, GFR, CBC, ADIFF, BMP #### [address] [address] MCHC 33.8 G/dL Normal 33.0-37.0 [facility] ([place] Comment on above: Performed By: #### M DW, TROPHS, ANEU, GFR, CBC, ADIFF, BMP #### [address] [address] MCV (RBC) [Entitic vol] 89.4 fL Normal 80.0-94.0 [facility] ([place] Comment on above: Performed By: #### M DW, TROPHS, ANEU, GFR, CBC, ADIFF, BMP #### [address] [address] Platelet 297 10 3/mcL Normal 130-400 [facility] ([place]) Comment on above: Performed By: #### M DW, TROPHS, ANEU, GFR, CBC, ADIFF, BMP #### [address] [address] Platelet mean volume (Bld) [Entitic vol] 8.5 fL Normal 7.4-10.4 [facility] ([place] Comment on above: Performed By: #### M DW, TROPHS, ANEU, GFR, CBC, ADIFF, BMP #### [address] [address] RBC 4.30 10 6/mcL Normal 4.20-5.40 [facility] ([place] Comment on above: Performed By: #### M DW, TROPHS, ANEU, GFR, CBC, ADIFF, BMP #### [address] [address] WBC 9.6 10 3/mcL Normal 4.6-10.8 [facility] ([place] Comment on above: Performed By: #### M DW, TROPHS, ANEU, GFR, CBC, ADIFF, BMP #### [address] [place], [place] [address] CT HEAD OR BRAIN W/O CONTRAS Ton [...] Date: 01/26/2023 6:03:14 AM Ordering Provider: COSME Duong [facility] ([place]) LABORATORYOrdered By: SYSTEM SYSTEM on 01-26-2023 Basophil, [...] Invalid Interpretation Code 82 - 115 mg/dL [facility] 12-28-2022 B-Hydroxybutyrate 1.24 mg/dL Normal 0.20-2.81 [facility] ([place]) Comment on above: Performed By: #### M DW, TROPHS, ANEU, GFR, CBC, ADIFF, BMP #### [address] [address] .Auto Diffon 12-27-2022 Basophil, Absolute 0.1 10 3/mcL Normal 0.0-0.2 [facility] ([place]) Comment on above: Performed By: #### M DW, TROPHS, ANEU, GFR, CBC, ADIFF, BMP #### [address] [address] Basophils/100 WBC (Bld) 0.8 % Normal 0.0-2.5 [facility] ([place]) Comment on above: Performed By: #### M DW, TROPHS, ANEU, GFR, CBC, ADIFF, BMP #### [address] [address] Eosinophil, Absolute 0.2 10 3/mcL Normal 0.0-0.4 [facility] ([place]) Comment on above: Performed By: #### M DW, TROPHS, ANEU, GFR, CBC, ADIFF, BMP #### [address] [address] Eosinophils/100 WBC (Bld) 2.5 % Normal 0.0-7.0 [facility] ([place] Comment on above: Performed By: #### M DW, TROPHS, ANEU, GFR, CBC, ADIFF, BMP #### [address] [address] Lymphocyte, Absolute 1.5 10 3/mcL Normal 0.8-3.9 [facility] ([place]) Comment on above: Performed By: #### M DW, TROPHS, ANEU, GFR, CBC, ADIFF, BMP #### [address] [address] Lymphocytes/100 WBC (Bld) 18.7 % Normal 10.0-50.0 [facility] ([place] Comment on above: Performed By: #### M DW, TROPHS, ANEU, GFR, CBC, ADIFF, BMP #### [address] [address] Monocyte, Absolute 0.6 10 3/mcL Normal 0.2-1.0 [facility] ([place]) Comment on above: Performed By: #### M DW, TROPHS, ANEU, GFR, CBC, ADIFF, BMP #### [address] [address] Monocytes/100 WBC (Bld) 7.8 % Normal 1.7-13.0 [facility] ([place]) Comment on above: Performed By: #### M DW, TROPHS, ANEU, GFR, CBC, ADIFF, BMP #### [address] [address] Neutrophils/100 WBC (Bld) 70.2 % Normal 37.0-80.0 [facility] ([place]) Comment on above: Performed By: #### M DW, TROPHS, ANEU, GFR, CBC, ADIFF, BMP #### [address] [address] .GFRon 12-27-2022 GFR 64 ml/min/1.73sqm Normal [facility] ([place]) Comment on above: Result Comment: GFR Population [...] TROPHS, ANEU, GFR, CBC, ADIFF, BMP #### [address] [address] GFR Non- 52 ml/min/1.73sqm Normal [facility] ([place]) Comment on above: Result Comment: GFR Population [...] mL/min/1.73 square meters Performed By: #### M CHIRAG, TROPHS, ANEU, GFR, CBC, ADIFF, BMP #### [address] [address] .MDWon 12-27-2022 Monocyte Distribution Width 20.29 High 0.00-20.00 [facility] ([place]) Comment on above: Result Comment: For adults in ED, MDW>20.0 may be associated with a higher risk of sepsis during the first 12hrs of hospital admission Performed By: #### M CHIRAG, TROPHS, ANEU, GFR, CBC, ADIFF, BMP #### [place] [address] .NEUABSon 12-27-2022 Neutrophil, Absolute 5.5 10 3/mcL Normal 2.9-6.2 [facility] ([place]) Comment on above: Performed By: #### M DW, TROPHS, ANEU, GFR, CBC, ADIFF, BMP #### [place] [address] CBCon 12-27-2022 Erythrocyte distribution width (RBC) [Ratio] 13.8 % Normal 11.5-14.5 [facility] ([place]) Comment on above: Performed By: #### M DW, TROPHS, ANEU, GFR, CBC, ADIFF, BMP #### [place] [address] Hematocrit (Bld) [Volume fraction] 39.4 % Normal 37.0-47.0 [facility] ([place]) Comment on above: Performed By: #### M DW, TROPHS, ANEU, GFR, CBC, ADIFF, BMP #### [place] [address] Hgb 13.2 G/dL Normal 12.0-16.0 [facility] ([place]) Comment on above: Performed By: #### M DW, TROPHS, ANEU, GFR, CBC, ADIFF, BMP #### [place] [address] MCH (RBC) [Entitic mass] 30.2 pg Normal 27.0-31.2 [facility] ([place]) Comment on above: Performed By: #### M DW, TROPHS, ANEU, GFR, CBC, ADIFF, BMP #### [place] [address] MCHC 33.6 G/dL Normal 33.0-37.0 [facility] ([place]) Comment on above: Performed By: #### M DW, TROPHS, ANEU, GFR, CBC, ADIFF, BMP #### [place] [address] MCV (RBC) [Entitic vol] 89.9 fL Normal 80.0-94.0 [facility] ([place]) Comment on above: Performed By: #### M DW, TROPHS, ANEU, GFR, CBC, ADIFF, BMP #### [address] [address] Platelet 271 10 3/mcL Normal 130-400 [facility] ([place]) Comment on above: Performed By: #### M DW, TROPHS, ANEU, GFR, CBC, ADIFF, BMP #### [address] [address] Platelet mean volume (Bld) [Entitic vol] 9.1 fL Normal 7.4-10.4 [facility] ([place]) Comment on above: Performed By: #### M DW, TROPHS, ANEU, GFR, CBC, ADIFF, BMP #### [address] [address] RBC 4.38 10 6/mcL Normal 4.20-5.40 [facility] ([place]) Comment on above: Performed By: #### M DW, TROPHS, ANEU, GFR, CBC, ADIFF, BMP #### [address] [address] WBC 7.8 10 3/mcL Normal 4.6-10.8 [facility] ([place]) Comment on above: Performed By: #### M DW, TROPHS, ANEU, GFR, CBC, ADIFF, BMP #### [address] [address] CMPon 12-27-2022 Albumin Level 3.7 G/dL Normal 3.4-4.8 [facility] ([place]) Comment on above: Performed By: #### M DW, TROPHS, ANEU, GFR, CBC, ADIFF, BMP #### [address] [address] Albumin/Globulin [Mass ratio] 1.1 {ratio} Normal 1.1-2.5 [facility] ([place]) Comment on above: Performed By: #### M DW, TROPHS, ANEU, GFR, CBC, ADIFF, BMP #### [address] [address] ALP [Catalytic activity/Vol] 103 U/L Normal 40-135 [facility] ([place]) Comment on above: Performed By: #### M DW, TROPHS, ANEU, GFR, CBC, ADIFF, BMP #### [address] [address] ALT [Catalytic activity/Vol] 20 U/L Normal 14-59 [facility] ([place]) Comment on above: Performed By: #### M DW, TROPHS, ANEU, GFR, CBC, ADIFF, BMP #### [address] [address] AST [Catalytic activity/Vol] 13 U/L Normal 10-40 [facility] ([place]) Comment on above: Performed By: #### M DW, TROPHS, ANEU, GFR, CBC, ADIFF, BMP #### [address] [address] Bili Total 0.4 mg/dL Normal 0.2-1.0 [facility] ([place]) Comment on above: Result Comment: Use of this assay is not recommended for patients undergoing treatment with eltrombopag due to the potential for falsely elevated results. Performed By: #### M DW, TROPHS, ANEU, GFR, CBC, ADIFF, BMP #### [address] [address] BUN/Creatinine Ratio 20 ratio Normal 7-27 [facility] ([place]) Comment on above: Performed By: #### M DW, TROPHS, ANEU, GFR, CBC, ADIFF, BMP #### [address] [address] Calcium [Mass/Vol] 9.1 mg/dL Normal 8.4-10.2 [facility] ([place]) Comment on above: Performed By: #### M DW, TROPHS, ANEU, GFR, CBC, ADIFF, BMP #### [address] [address] Chloride [Moles/Vol] 99 mmol/L Normal 98-107 [facility] ([place]) Comment on above: Performed By: #### M DW, TROPHS, ANEU, GFR, CBC, ADIFF, BMP #### [address] [address] CO2 [Moles/Vol] 24 mmol/L Normal 23-31 [facility] ([place]) Comment on above: Performed By: #### M DW, TROPHS, ANEU, GFR, CBC, ADIFF, BMP #### [address] [address] Creatinine [Mass/Vol] 1.00 mg/dL Normal 0.55-1.02 [facility] ([place]) Comment on above: Performed By: #### M DW, TROPHS, ANEU, GFR, CBC, ADIFF, BMP #### [address] [address] Electrolyte Balance 11.0 mEq/L Normal 4.0-15.0 [facility] ([place]) Comment on above: Performed By: #### M DW, TROPHS, ANEU, GFR, CBC, ADIFF, BMP #### [address] [address] Globulin 3.4 G/dL Normal [facility] ([place]) Comment on above: Performed By: #### M DW, TROPHS, ANEU, GFR, CBC, ADIFF, BMP #### [address] [address] Glucose [Mass/Vol] 425 mg/dL Critically abnormal 83-110 [facility] ([place]) Comment on above: Performed By: #### M DW, TROPHS, ANEU, GFR, CBC, ADIFF, BMP #### [address] [address] Potassium [Moles/Vol] 4.5 mmol/L Normal 3.5-5.1 [facility] ([place]) Comment on above: Performed By: #### M DW, TROPHS, ANEU, GFR, CBC, ADIFF, BMP #### [address] [address] Sodium [Moles/Vol] 134 mmol/L Low 136-145 [facility] ([place] Comment on above: Performed By: #### M DW, TROPHS, ANEU, GFR, CBC, ADIFF, BMP #### [address] [address] Total Protein 7.1 G/dL Normal 6.4-8.2 [facility] ([place]) Comment on above: Performed By: #### M DW, TROPHS, ANEU, GFR, CBC, ADIFF, BMP #### [address] [address] Urea nitrogen [Mass/Vol] 20 mg/dL High 7-18 [facility] ([place]) Comment on above: Performed By: #### M DW, TROPHS, ANEU, GFR, CBC, ADIFF, BMP #### [id number] [place], [place] [address] CT HEAD OR BRAIN W/O CONTRAS Ton [...] 6:25:47 PM Ordering Provider: RO MILES [facility] ([place]) CT SPINE CERVICAL W/O CONTRA Rashid 12-27-2022 CT SPINE CERVICAL W/O CONTRAST ORIGINAL [...] 6:23:50 PM Ordering Provider: RO MILES [facility] ([place] LABORATORYOrdered By: Gris Flanagan on 12-27-2022 Glucose [Mass/Vol] 200 mg/dL Invalid Interpretation Code 82 - 115 mg/dL [facility] LABORATORYOrdered By: Rommel Lao on 12-27-2022 Blood Glucose Interventions Notify physician (12/27/22 7:02 PM) [facility] Glucose [Mass/Vol] 303 mg/dL Invalid Interpretation Code 82 - 115 mg/dL [facility] LABORATORYOrdered By: SYSTEM SYSTEM on 12-27-2022 Albumin [...] PHVon 12-27-2022 pH Venous 7.38 Normal 7.31-7.41 [facility] ([place]) Comment on above: Performed By: #### M DW, TROPHS, ANEU, GFR, CBC, ADIFF, BMP #### [address] [address] TROPHSon 12-27-2022 Troponin I High Sensitivity 5.1 ng/L Normal 0.0-51.4 [facility] ([place] Comment on above: Performed By: #### M DW, TROPHS, ANEU, GFR, CBC, ADIFF, BMP #### [address] [address] XR CHEST 1 VIEWon 12-27-2022 XR CHEST [...] 6:17:13 PM Ordering Provider: RO MILES [facility] ([place]) Basophil percentageOrdered B y: Edis Martinez on 10-27-2022 Chloride [Moles/Vol] 106 mmol/L 98-107 [facility] [place] Glucose [Mass/Vol] 245 mg/dL 74-106 [facility] Comment on above: Glucose result great er than or equal to 200 mg/dLsuggests DIABETES MELLITUS per A.D.A. criteria. Potassium [Moles/Vol] 4.0 mmol/L 3.5-5.[address] [facility] Sodium [Moles/Vol] 138 mmol/L 136-145 [facility] WBC (Bld) [#/Vol] 7.5 10*3/uL 4.4-11.0 [facility] Blood erythrocytes count (nu mber/volume)Ordered By: Edis Martinez on 10-27-2022 RBC (Bld) [#/Vol] 4.29 10*6/uL 4.2-5.4 [facility] Blood hemoglobin measurement (mass/volume)Ordered By: Edis Martinez on 10-27-2022 Hemoglobin (Bld) [Mass/Vol] 12.9 g/dL 12.0-15.0 [facility] Blood platelet mean volumeOr dered By: Edis Martinez on 10-27-2022 Platelet mean volume (Bld) [Entitic vol] 10.6 fL 6.2-12.0 [facility] Determination of erythrocyte mean corpuscular volume (MCV)Ordered By: Edis Martinez on 10-27-2022 MCV (RBC) [Entitic vol] 94.2 fL 81-99 [facility] Hematocrit Auto (Bld) [Volum e fraction]Ordered By: Edis Martinez on 10-27-2022 Hematocrit (Bld) [Volume fraction] 40.4 % 37-47 [facility] Laboratory - Chemistry and C hemistry - challengeOrdered By: Edis Martinez on 10-27-2022 CO2 [Moles/Vol] 27.0 mmol/L 21.0-32.0 [facility] Urea nitrogen/Creatinine [Mass ratio] 25.5 mg/mg 10-20 [facility] - Hematology and Cell countsOrdered By: Edis Martinez on 10-27-2022 Erythrocyte distribution width (RBC) [Entitic vol] 45.2 fL 35.1-43.9 [facility] Erythrocyte distribution width (RBC) [Ratio] 13.1 % 11.6-14.6 [facility] MCH (RBC) [Entitic mass] 30.1 pg 27.0-32.0 [facility] MCHC Auto (RBC) [Mass/Vol]Or dered By: Edis Martinez on 10-27-2022 MCHC (RBC) [Mass/Vol] 31.9 g/dL 32-[address] [facility] No Panel InformationOrdered By: Edis Martinez on 10-27-2022 Estimated GFR (MDRD) Amer 84 mL/min >60 [facility] Comment on above: GFR Calc Estimated GFR (MDRD) Non-Af Amer 70 mL/min >60 [facility] Comment on above: Non- GFR Calc Platelets bldOrdered By: Gurinder Martinez on 10-27-2022 Platelets (Bld) [#/Vol] 288 10*3/uL 150-450 [facility] Serum or plasma calcium roger urement (mass/volume)Ordered By: Edis Martinez on 10-27-2022 Calcium [Mass/Vol] 9.2 mg/dL 8.5-10.1 [facility] Serum or plasma creatinine m easurement (mass/volume)Ordered By: Edis Martinez on 10-27-2022 Creatinine [Mass/Vol] 0.82 mg/dL 0.55-1.[address] [facility] Comment on above: The validity of the calculated GFR & GFRAA in patients over 70 years has not been determined. Clinical correlation is essential. Serum or plasma urea nitroge n measurement (mass/volume)Ordered By: Edis Martinez on 10-27-2022 Urea nitrogen [Mass/Vol] 21 mg/dL 7-18 [facility] Thin prep Papanicolaou smear with manual screeningOrdered By: Edis Martinez on 10-27-2022 Thin prep Papanicolaou smear with manual screening 5 5-15 [facility] LABORATORYOrdered By: Deandra Wood on 08-18-2022 [...] Urine SS CNOVon 09-27-2021 CNOV Office Visit (UCTR ) PATRICK MOYER ([id number]) 1935 F Date Time Provider Department 09/27/21 10:00 AM ANNETTE LR [facility] During your visit today, we recorded the following information about you: Annette Lr APRN.CNP 09/27/2021 10:02 AM Signed Patient came in [...] Status:Closed by ANNETTE LR on 09/27/[address] [facility] LABORATORYOrdered By: Lupillo Curtis on 07-15-2021 [...] Facility 12-13-2023 14:38-0400 Body temperature 97.88 [degF] PANDASEAN RIVERAFARHEEN SEQUINS [employer] [facility] 12-13-2023 14:38-0400 Diastolic Blood Pressure Non-Invasive 59 mm[Hg] PANDA ZHONG SEQUINS [employer] [facility] 12-13-2023 14:38-0400 Heart rate 53 /min PANDA FAREHEN SEQUINS [employer] [facility] 12-13-2023 14:38-0400 Reason For Taking VItal Signs PANDA ZHONG SEQUINS [employer] [facility] 12-13-2023 14:38-0400 Respiratory rate 16 /min PANDA ZHONG SEQUINS [employer] [facility] 12-13-2023 14:38-0400 Systolic Blood Pressure Non-Invasive 152 mm[Hg] PANDA ZHONG SEQUINS [employer] [facility] 12-13-2023 11:00-0400 Body temperature 98.06 [degF] PANDA ZHONG SEQUINS [employer] [facility] 12-13-2023 11:00-0400 Diastolic Blood Pressure Non-Invasive 56 mm[Hg] PANDA ZHONG SEQUINS [employer] [facility] 12-13-2023 11:00-0400 Heart rate 59 /min PANDA ZHONG SEQUINS [employer] [facility] 12-13-2023 11:00-0400 Systolic Blood Pressure Non-Invasive 145 mm[Hg] PANDA ZHONG SEQUINS [employer] [facility] 12-13-2023 07:22-0400 Body temperature 98.24 [degF] PANDA ZHONG SEQUINS [employer] [facility] 12-13-2023 07:22-0400 Diastolic Blood Pressure Non-Invasive 53 mm[Hg] PANDA ZHONG SEQUINS [employer] [facility] 12-13-2023 07:22-0400 Heart rate 63 /min PANDA ZHONG SEQUINS [employer] [facility] 12-13-2023 07:22-0400 Reason For Taking VItal Signs PANDA ZHONG SEQUINS [employer] [facility] 12-13-2023 07:22-0400 Respiratory rate 16 /min PADNA ZHONG SEQUINS [employer] [facility] 12-13-2023 07:22-0400 Systolic Blood Pressure Non-Invasive 131 mm[Hg] PANDA ZOHNG SEQUINS [employer] [facility] 12-12-2023 23:59-0400 Body height 162.6 cm PANDA ZHONG SEQUINS [employer] [facility] 12-12-2023 23:59-0400 Body weight 66.7 kg PANDA ZHONG SEQUINS [employer] [facility] 12-12-2023 23:59-0400 Body weight 25.23 kg/m2 PANDA ZHONG SEQUINS [employer] [facility] 12-12-2023 23:58-0400 Body weight 66.7 kg PANDA ZHONG SEQUINS [employer] [facility] 12-12-2023 20:20-0400 Blood Pressure Cuff Size PANDA ZHONG SEQUINS [employer] [facility] 12-12-2023 20:20-0400 Blood Pressure Location PANDA ZHONG SEQUINS [employer] [facility] 12-12-2023 20:20-0400 Blood Pressure Method PANDA ZHONG SEQUINS [employer] [facility] 12-12-2023 20:20-0400 Body height 162.6 cm PANDA ZHONG SEQUINS [employer] [facility] 12-12-2023 20:20-0400 Body weight 63.6 kg PANDA ZHONG SEQUINS [employer] [facility] 12-12-2023 20:20-0400 Heart rate 70 /min PANDA ZHONG SEQUINS [employer] [facility] 12-12-2023 19:14-0400 Diastolic Blood Pressure Non-Invasive 55 mm[Hg] ABHIJEET RAMSEY MD [facility] 12-12-2023 19:14-0400 Heart rate 74 /min ABHIJEET RAMSEY MD [facility] 12-12-2023 19:14-0400 Respiratory rate 18 /min ABHIJEET RAMSEY MD [facility] 12-12-2023 19:14-0400 Systolic Blood Pressure Non-Invasive 155 mm[Hg] ABHIJEET RAMSEY MD [facility] 12-12-2023 18:45-0400 Body temperature 100.4 [degF] ABHIJEET RAMSEY MD [facility] 12-12-2023 18:44-0400 Body temperature 99.68 [degF] ABHIJEET RAMSEY MD [facility] 12-12-2023 18:44-0400 Diastolic Blood Pressure Non-Invasive 70 mm[Hg] ABHIJEET RAMSEY MD [facility] 12-12-2023 18:44-0400 Heart rate 119 /min ABHIJEET RAMSEY MD [facility] 12-12-2023 18:44-0400 Respiratory rate 18 /min ABHIJEET RAMSEY MD [facility] 12-12-2023 18:44-0400 Systolic Blood Pressure Non-Invasive 127 mm[Hg] ABHIJEET RAMSEY MD [facility] 12-12-2023 18:40-0400 Diastolic Blood Pressure Non-Invasive 76 mm[Hg] ABHIJEET RAMSEY MD [facility] 12-12-2023 18:40-0400 Heart rate 80 /min ABHIJEET RAMSEY MD [facility] 12-12-2023 18:40-0400 Respiratory rate 16 /min ABHIJEET RAMSEY MD [facility] 12-12-2023 18:40-0400 Systolic Blood Pressure Non-Invasive 130 mm[Hg] ABHIJEET RAMSEY MD [facility] 12-12-2023 16:29-0400 Body height 162.6 cm ABHIJEET RAMSEY MD [facility] 12-12-2023 16:29-0400 Body temperature 97.88 [degF] ABHIJETE RAMSEY MD [facility] 12-12-2023 16:29-0400 Body weight 66.4 kg ABHIJEET RAMSEY MD [facility] 12-03-2023 23:34-0400 Diastolic Blood Pressure Non-Invasive 51 mm[Hg] NEHAL PIERCE MD [facility] 12-03-2023 23:34-0400 Heart rate 66 /min NEHAL PIERCE MD [facility] 12-03-2023 23:34-0400 Respiratory rate 16 /min NEHAL PIERCE MD [facility] 12-03-2023 23:34-0400 Systolic Blood Pressure Non-Invasive 134 mm[Hg] NEHAL PIERCE MD [facility] 12-03-2023 22:52-0400 Diastolic Blood Pressure Non-Invasive 89 mm[Hg] NEHAL PIERCE MD [facility] 12-03-2023 22:52-0400 Systolic Blood Pressure Non-Invasive 136 mm[Hg] NEHAL PIERCE MD [facility] 12-03-2023 22:46-0400 Diastolic Blood Pressure Non-Invasive 68 mm[Hg] NEHAL PIERCE MD [facility] 12-03-2023 22:46-0400 Heart rate 68 /min NEHAL PIERCE MD [facility] 12-03-2023 22:46-0400 Systolic Blood Pressure Non-Invasive 163 mm[Hg] NEHAL PIERCE MD [facility] 12-03-2023 22:04-0400 Heart rate 75 /min NEHAL PIERCE MD [facility] 12-03-2023 22:04-0400 Respiratory rate 18 /min NEHAL PIERCE MD [facility] 12-03-2023 21:06-0400 Body temperature 98.42 [degF] NEHAL PIERCE MD [facility] 12-03-2023 21:06-0400 Respiratory rate 18 /min NEHAL PIERCE MD [facility] 06-19-2023 10:49-0500 Body temperature 98.42 [degF] ABHIJEET RAMSEY MD [facility] 06-19-2023 10:49-0500 Diastolic Blood Pressure Non-Invasive 70 mm[Hg] ABHIJEET RAMSEY MD [facility] 06-19-2023 10:49-0500 Heart rate 84 /min ABHIJEET RAMSEY MD [facility] 06-19-2023 10:49-0500 Respiratory rate 18 /min ABHIJEET RAMSEY MD [facility] 06-19-2023 10:49-0500 Systolic Blood Pressure Non-Invasive 176 mm[Hg] ABHIJEET RAMSEY MD [facility] 03-29-2023 10:05-0500 Diastolic Blood Pressure Non-Invasive 70 mm[Hg] DESMOND WILLIAMSON MD FACP [facility] 03-29-2023 10:05-0500 Systolic Blood Pressure Non-Invasive 149 mm[Hg] DESMOND WILLIAMSON MD FACP [facility] 03-29-2023 06:43-0500 Body temperature 97.7 [degF] DESMOND WILLIAMSON MD FACP [facility] 03-29-2023 06:43-0500 Diastolic Blood Pressure Non-Invasive 50 mm[Hg] DESMOND WILLIAMSON MD FACP [facility] 03-29-2023 06:43-0500 Heart rate 48 /min DESMOND WILLIAMSON MD FACP [facility] 03-29-2023 06:43-0500 Reason For Taking VItal Signs DESMOND WILLIAMSON MD FACP [facility] 03-29-2023 06:43-0500 Respiratory rate 18 /min DESMOND WILLIAMSON MD FACP [facility] 03-29-2023 06:43-0500 Systolic Blood Pressure Non-Invasive 144 mm[Hg] DESMOND WILLIAMSON MD FACP [facility] 03-28-2023 20:05-0500 Body temperature 97.7 [degF] DESMOND WILLIAMSON MD FACP [facility] 03-28-2023 20:05-0500 Diastolic Blood Pressure Non-Invasive 48 mm[Hg] DESMOND WILLIAMSON MD FACP [facility] 03-28-2023 20:05-0500 Heart rate 52 /min DESMOND WILLIAMSON MD FACP [facility] 03-28-2023 20:05-0500 Reason For Taking VItal Signs DESMOND WILLIAMSON MD FACP [facility] 03-28-2023 20:05-0500 Respiratory rate 18 /min DESMOND WILLIAMSON MD FACP [facility] 03-28-2023 20:05-0500 Systolic Blood Pressure Non-Invasive 138 mm[Hg] DESMOND WILLIAMSON MD FACP [facility] 03-28-2023 09:39-0500 Body temperature 98.06 [degF] DESMOND WILLIAMSON MD FACP [facility] 03-28-2023 09:39-0500 Heart rate 72 /min DESMOND WILLIAMSON MD FACP [facility] 03-28-2023 09:39-0500 Reason For Taking VItal Signs DESMOND WILLIAMSON MD FACP [facility] 03-28-2023 09:39-0500 Respiratory rate 18 /min DESMOND WILLIAMSON MD FACP [facility] 03-27-2023 20:11-0500 Heart rate 63 /min DESMOND WILLIAMSON MD FACP [facility] 03-27-2023 07:19-0500 Heart rate 52 /min DESMOND WILLIAMSON MD FACP [facility] 03-26-2023 06:45-0500 Heart rate 52 /min DESMOND WILLIAMSON MD FACP [facility] 03-25-2023 20:47-0500 Heart rate 55 /min DESMOND WILLIAMSON MD FACP [facility] 03-25-2023 09:40-0500 Heart rate 60 /min DESMOND WILLIAMSON MD FACP [facility] 03-24-2023 08:36-0500 Heart rate 58 /min DESMOND WILLIAMSON MD FACP [facility] 03-14-2023 19:57-0500 Mean blood pressure 87 mm[Hg] DESMOND WILLIAMSON MD FACP [facility] 03-14-2023 18:13-0500 Body height 162.6 cm DESMOND WILLIAMSON MD FACP [facility] 03-14-2023 18:13-0500 Body weight 63.1 kg DESMOND WILLIAMSON MD FACP [facility] 03-14-2023 18:13-0500 Body weight 23.87 kg/m2 DESMOND WILLIAMSON MD FACP [facility] 03-14-2023 14:34-0500 Blood Pressure Cuff Size TAMIKA GRACE MD [facility] 03-14-2023 14:34-0500 Blood Pressure Location TAMIKA GRACE MD [facility] 03-14-2023 14:34-0500 Blood Pressure Method TAMIKA GRACE MD [facility] 03-14-2023 14:34-0500 Body temperature 97.34 [degF] TAMIKA GRACE MD [address] [place] [address] 03-14-2023 14:34-0500 Diastolic Blood Pressure Non-Invasive 51 mm[Hg] TAMIKA GRACE MD [address] [place] [address] 03-14-2023 14:34-0500 Heart rate 68 /min TAMIKA GRACE MD [address] [place] [address] 03-14-2023 14:34-0500 Reason For Taking VItal Signs TAMIKA GRACE MD [address] [place] [address] 03-14-2023 14:34-0500 Respiratory rate 18 /min TAMIKA GRACE MD [address] [place] [address] 03-14-2023 14:34-0500 Systolic Blood Pressure Non-Invasive 116 mm[Hg] TAMIKA GRACE MD [address] [place] [address] 03-14-2023 13:21-0500 Heart rate 60 /min TAMIKA GRACE MD [address] [place] [address] 03-14-2023 10:05-0500 Blood Pressure Cuff Size TAMIKA GRACE MD [address] [place] [address] 03-14-2023 10:05-0500 Blood Pressure Location TAMIKA GRACE MD [address] [place] [address] 03-14-2023 10:05-0500 Blood Pressure Method TAMIKA GRACE MD [address] [place] [address] 03-14-2023 10:05-0500 Body temperature 97.7 [degF] TAMIKA GRACE MD [address] [place] [address] 03-14-2023 10:05-0500 Diastolic Blood Pressure Non-Invasive 78 mm[Hg] TAMIKA GRACE MD [address] [place] [address] 03-14-2023 10:05-0500 Heart rate 69 /min TAMIKA GRACE MD [address] [place] [address] 03-14-2023 10:05-0500 Reason For Taking VItal Signs TAMIKA GRACE MD [address] [place] [address] 03-14-2023 10:05-0500 Respiratory rate 18 /min TAMIKA GRACE MD [address] [place] [address] 03-14-2023 10:05-0500 Systolic Blood Pressure Non-Invasive 125 mm[Hg] TAMIKA GRACE MD [address] [place] [address] 03-14-2023 09:23-0500 Diastolic Blood Pressure Non-Invasive 62 mm[Hg] TAMIKA GRACE MD [address] [place] [address] 03-14-2023 09:23-0500 Systolic Blood Pressure Non-Invasive 135 mm[Hg] TAMIKA GRACE MD [address] [place] [address] 03-14-2023 08:00-0500 Heart rate 64 /min TAMIKA GRACE MD [address] [place] [address] 03-12-2023 23:05-0500 Heart rate 71 /min TAMIKA GRACE MD [address] [place] [address] 03-12-2023 19:57-0500 Heart rate 64 /min TAMIKA GRACE MD [address] [place] [address] 03-12-2023 10:06-0500 Heart rate 67 /min TAMIKA GRACE MD [address] [place] [address] 03-10-2023 17:55-0500 Body height 162.6 cm TAMIKA GRACE MD [address] [place] [address] 03-10-2023 17:55-0500 Body weight 66.8 kg TAMIKA GRACE MD [address] [place] [address] 03-10-2023 17:55-0500 Body weight 25.27 kg/m2 TAMIKA GRACE MD [address] [place] [address]-25-2023 16:27-0500 Diastolic Blood Pressure Non-Invasive 77 mm[Hg] REGINALD MCCALLUM MD [facility] 03-10-2023 16:27-0500 Respiratory rate 16 /min REGINALD MCCALLUM MD [facility] 03-10-2023 16:27-0500 Systolic Blood Pressure Non-Invasive 174 mm[Hg] REGINALD MCCALLUM MD [facility] 03-10-2023 14:37-0500 Diastolic Blood Pressure Non-Invasive 70 mm[Hg] REGINALD MCCALLUM MD [facility] 03-10-2023 14:37-0500 Heart rate 90 /min REGINALD MCCALLUM MD [facility] 03-10-2023 14:37-0500 Mean blood pressure 88 mm[Hg] REGINALD MCCALLUM MD [facility] 03-10-2023 14:37-0500 Reason For Taking VItal Signs REGINALD MCCALLUM MD [facility] 03-10-2023 14:37-0500 Respiratory rate 16 /min REGINALD MCCALLUM MD [facility] 03-10-2023 14:37-0500 Systolic Blood Pressure Non-Invasive 142 mm[Hg] REGINALD MCCALLUM MD [facility] 03-10-2023 13:47-0500 Diastolic Blood Pressure Non-Invasive 76 mm[Hg] REGINALD MCCALLUM MD [facility] 03-10-2023 13:47-0500 Heart rate 71 /min REGINALD MCCALLUM MD [facility] 03-10-2023 13:47-0500 Systolic Blood Pressure Non-Invasive 167 mm[Hg] REGINALD MCCALLUM MD [facility] 03-10-2023 12:34-0500 Mean blood pressure 76 mm[Hg] REGINALD MCCALLUM MD [facility] 03-10-2023 12:34-0500 Reason For Taking VItal Signs REGINALD MCCALLUM MD [facility] 03-10-2023 12:02-0500 Mean blood pressure 94 mm[Hg] REGINALD MCCALLUM MD [facility] 03-10-2023 10:58-0500 Heart rate 75 /min REGINALD MCCALLUM MD [facility] 03-10-2023 10:58-0500 Reason For Taking VItal Signs REGINALD MCCALLUM MD [facility] 03-10-2023 10:58-0500 Respiratory rate 16 /min REGINALD MCCALLUM MD [facility] 03-10-2023 09:49-0500 Blood Pressure Location REGINALD MCCALLUM MD [facility] 03-10-2023 09:49-0500 Body temperature 97.52 [degF] REGINALD MCCALLUM MD [facility] 01-26-2023 06:30-0400 Blood Pressure Cuff Size COSME HAGEN DO [facility] 01-26-2023 06:30-0400 Blood Pressure Location COSME MADDOXT [facility] 01-26-2023 06:30-0400 Blood Pressure Method COSME Ferreira [facility] 10-13-2023 06:30-0400 Diastolic Blood Pressure Non-Invasive 73 1 COSME FROMMELT DO [facility] 01-26-2023 06:30-0400 Heart rate 80 /min COSME FROMMELT DO [facility] 01-26-2023 06:30-0400 Respiratory rate 18 /min COSME FROMMELT DO [facility] 01-26-2023 06:30-0400 Systolic Blood Pressure Non-Invasive 170 1 COSME ZIEGLERMELT DO [facility] 01-26-2023 05:04-0400 Blood Pressure Cuff Size COSME FROMMELT DO [facility] 01-26-2023 05:04-0400 Blood Pressure Location COSME FROMMELT DO [facility] 01-26-2023 05:04-0400 Blood Pressure Method COSME MADDOXT D O [facility] 01-26-2023 05:04-0400 Body height 160 cm COSME FROMMELT DO [facility] 01-26-2023 05:04-0400 Body temperature 96.98 [degF] COSME FROMMELT DO [facility] 01-26-2023 05:04-0400 Body weight 61.4 kg COSME ZIEGLERMELT DO [facility] 01-26-2023 05:04-0400 Diastolic Blood Pressure Non-Invasive 80 1 COSME FROMMELT DO [facility] 01-26-2023 05:04-0400 Heart rate 81 /min COSME FROMMELT DO [facility] 01-26-2023 05:04-0400 Reason For Taking VItal Signs COSME MADDOXT DO [facility] 01-26-2023 05:04-0400 Respiratory rate 18 /min COSME MADDOXT DO [facility] 01-26-2023 05:04-0400 Systolic Blood Pressure Non-Invasive 163 1 COSME MADDOXT DO [facility] 12-27-2022 20:06-0400 Diastolic Blood Pressure Non-Invasive 57 1 RO MILES DO [facility] 12-27-2022 20:06-0400 Heart rate 62 /min RO MILES DO [facility] 12-27-2022 20:06-0400 Respiratory rate 15 /min RO MILES DO [facility] 12-27-2022 20:06-0400 Systolic Blood Pressure Non-Invasive 143 1 RO MILES DO [facility] 12-27-2022 19:24-0400 Diastolic Blood Pressure Non-Invasive 61 1 RO MILES DO [facility] 12-27-2022 19:24-0400 Heart rate 67 /min RO MILES DO [facility] 12-27-2022 19:24-0400 Respiratory rate 16 /min RO MILES DO [facility] 12-27-2022 19:24-0400 Systolic Blood Pressure Non-Invasive 133 1 RO MILES DO [facility] 12-27-2022 18:49-0400 Diastolic Blood Pressure Non-Invasive 54 1 RO MILES DO [facility] 12-27-2022 18:49-0400 Heart rate 78 /min RO MILES DO [facility] 12-27-2022 18:49-0400 Respiratory rate 14 /min RO MILES DO [facility] 12-27-2022 18:49-0400 Systolic Blood Pressure Non-Invasive 141 1 RO MILES DO [facility] 12-27-2022 18:21-0400 Reason For Taking VItal Signs RO MILES DO [facility] 12-27-2022 17:32-0400 Body temperature 97.16 [degF] RO VAUGHANER DO [facility] 12-27-2022 17:32-0400 Heart rate 72 /min RO MILES DO [facility] 09-27-2021 13:03-0400 Diastolic blood pressure 69 mm[Hg] [facility] Work Phone: 09-27-2021 13:03-0400 Heart rate 72 /min [facility] Work Phone: 09-27-2021 13:03-0400 Respiratory rate 15 /min [facility] Work Phone: 09-27-2021 13:03-0400 SaO2% (BldA) [Mass fraction] 95 % [facility] Work Phone: 09-27-2021 13:03-0400 Systolic blood pressure 124 mm[Hg] [facility] Work Phone: 09-27-2021 10:08-0400 Body height 162.56 cm [facility] Work Phone: 09-27-2021 10:08-0400 Body mass index (BMI) [Ratio] 25.7 kg/m2 [facility] Work Phone: 09-27-2021 10:08-0400 Body temperature 97.8 [degF] [facility] Work Phone: 09-27-2021 10:08-0400 Body weight 68.03 kg [facility] Work Phone: Encounters Encounter Date Encounter Type Care Provider Facility Start: 02-12-2025 ambulatory MARCO PENNY SE[employer]INS [employer] Fa cility:[facility] Start: 02-11-2025 End: 02-11-2025 ambulatory MARCO PENNY SEQUINS [employer] Facility:[facility] Start: 02-11-2025 End: 02-11-2025 Patient encounter procedure DAVION VARGAS MD [facility] Start: 05-26-2024 ambulatory Venkat Montano Facility:[facility] Start: 05-26-2024 End: 05-26-2024 ambulatory Perico Maddox Facility:[facility] Start: 05-22-2024 ambulatory PERICO MADDOX MD Faci lity:[facility] Start: 01-09-2024 End: 01-09-2024 Patient encounter procedure JOLANTA GORDO SEQUINS [employer] [facility] Start: 12-12-2023 End: 12-13-2023 Emergency department patient visit MEY MADDOX SE[employer]INS [employer] Facility:[facility] Start: 12-12-2023 End: 12-13-2023 Observation PANDA FARHEEN SEQUINS [employer] [facility] Start: 12-12-2023 End: 12-12-2023 Emergency department patient visit ABHIJEET RAMSEY MD [facility] Start: 12-03-2023 End: 12-03-2023 Emergency department patient visit NEHAL PIERCE MD [facility] Start: 09-05-2023 End: 09-05-2023 ambulatory MEY MADDOX [employer] Facility:[facility] Start: 09-05-2023 End: 09-05-2023 Patient encounter procedure MEY MADDOX SEQUINS [employer] [facility] Start: 08-07-2023 End: 10-19-2023 ambulatory ROEL DEDETTLE DO Facility:[facility] Start: 08-07-2023 End: 10-19-2023 Coordination of care plan ROEL DEDETTLE DO [facility] Start: 06-22-2023 End: 08-06-2023 ambulatory MEY MADDOX SE[employer] Facility:[facility] Start: 06-19-2023 End: 06-19-2023 Emergency department patient visit ABHIJEET RAMSEY MD [facility] Start: 06-08-2023 End: 06-08-2023 ambulatory MEY MADDOX SE[employer]INS [employer] Facility:[facility] Start: 03-14-2023 End: 03-29-2023 Evaluation and management of inpatient JONO VALLES MD Facility:[facility] Start: 03-10-2023 End: 03-14-2023 Evaluation and management of inpatient TAMIKA GRACE MD [facility] Start: 03-10-2023 End: 03-10-2023 Emergency department patient visit REGINALD MCCALLUM MD [facility] Start: 02-27-2023 End: 02-27-2023 ambulatory MEY MADDOX SE[employer] Facility:[facility] Start: 02-21-2023 End: 02-21-2023 ambulatory MEY MADDOX SE[employer]INS [employer] Facility:[facility] Start: 01-26-2023 End: 01-26-2023 Emergency department patient visit COSME HAGEN DO [facility] Start: 12-27-2022 End: 12-27-2022 Emergency department patient visit RO MILES DO [facility] Start: 10-27-2022 End: 10-27-2022 ambulatory [facility] Work Phone: Start: 10-27-2022 End: 10-27-2022 Patient encounter procedure [facility] Services/Neurology Work Phone: Start: 08-18-2022 End: 08-22-2022 Outreach Lab MEDARDO GARCIA DO [facility] Start: 09-27-2021 End: 09-27-2021 Emergency department patient visit [facility]Emergency Department Start: 09-27-2021 End: 09-27-2021 Patient encounter procedure Annette Lr APRN.MACHINE PULLER OVER Work Phone: [facility] Comment on above: Injury of head, init ial encounter (Primary Dx) Start: 07-15-2021 End: 07-15-2021 Patient encounter procedure JENI HARRINGTON MD [facility] Start: 06-20-2021 End: 06-20-2021 Patient encounter procedure [facility]MRI - [facility] Start: 05-13-2021 End: 05-13-2021 Patient encounter procedure MEDARDO MIRELAJONO DO [facility] Procedures Date Procedure Procedure Detail Performing Clinician [...] 07-21-1973 Laparotomy MEDARDO MALDONADO DO Hysterectomy MEDARDO JOSE D O Mastectomy of left breast LA CLYDE GARCIA DO Plan of Treatment Date Care Activity Detail Author Start: 12-15-2021 Influenza vaccination INFLUENZ A (Season Ended) [facility] Start: 08-04-2021 COVID-19 VACCINE (3 - Booster for Joanne series) COVID-19 VACCINE (3 - Booster for Joanne series) [facility] Start: 04-16-2021 ADVANCE DIRECTIVE DISCUSSION ADVANCE DIRECTIVE DISCUSSION [facility] Start: 11-28-2000 BONE DENSITY BONE DENSITY [facility] Start: 11-28-2000 PNEUMOCOCCAL: 65+ (1 - PCV) PNEUMOCOCCAL: 65+ (1 - PCV) [facility] Start: 11-28-1985 SHINGRIX VACCINE (1 of 2) DAI GRIX VACCINE (1 of 2) [facility] Start: 11-28-1980 DIABETES SCREEN DIABETES SCREEN [facility] Start: 11-28-1954 Urine microalbumin profile DTAP,TDAP,TD (1 - Tdap) [facility] Patient Education ED Head Injury (Adult) ED Hematoma [facility] Work Phone: Patient referral [facility] Work Phone: Immunizations Immunization Date Immunization Notes Care Provider Aretha pizano 12-27-2022 tetanus toxoid, redu stephanie diphtheria toxoid, and acellular pertussis vaccine, adsorbed RO MILES DO [facility] 04-05-2021 SARS-CoV-2 (COVID-19 ) Ad26 vaccine, recombinant MEDARDO GARCIA DO [facility] 10-07-2020 SARS-CoV-2 (COVID-19 ) Ad26 vaccine, recombinant MEDARDO GARCIA DO [facility] Comment on above: Result Comment: 2021: [id number] Payers Date Payer Category Payer Private Health Insurance [id number] 2024 Self-pay [id number] 2023 Unknown [id number] 2023 Medicare [id number] 2000 Medicare [id number] 2000 Medicare MEDICARE MEDICAR E B [id number] 2000-[place] [address] Medicare [id number] 2000 Unknown [id number] 1935 Unknown [id number] 2.840.1.075131.3.579.2 .1935 Unknown [id number] 2.840.1.639389.3.579.2 .1935 Unknown [id number] 2.840.1.189331.3.579.2 .62 1935 Unknown [id number] 2.16840.1.467142.3.579.2 .62 1935 Unknown [id number] 2.16840.1.005384.3.579.2 .62 1935 Unknown [id number] 2.16840.1.031307.3.579.2 .626 Unknown [id number] 2.16.840.1.464920.3.579.2 .62 1935 Unknown [id number] 2.16.840.1.890940.3.579.2 .62 1935 Unknown [id number] 2.16.840.1.456101.3.579.2 .62 1935 Unknown [id number] 2.16.840.1.853474.3.579.2 .62 1935 Unknown [id number] 2.16.840.1.439156.3.579.2 .1935 Unknown [id number] 2.16.840.1.659910.3.579.2 .627 1935 Unknown [id number] 2.16.840.1.687181.3.579.2 .62 1935 Unknown [id number] 2.16.840.1.369970.3.579.2 .627 1935 Unknown [id number] 2.16.840.1.342843.3.579.2 .62 1935 Unknown [id number] 2.16.840.1.805824.3.579.2 .627 1935 Unknown [id number] 2.16.840.1.431186.3.579.2 .627 Unknown [id number] 2.16.840.1.246627.3.579.2 .462 Unknown [id number] 2.16.840.1.519979.3.579.2 .462 Social History Date Type Detail Facility Start: 12-10-2018 End: 12-12-2024 Never smoked tobacco (finding) [facility] Start: 1935 Sex Assigned At Female A [facility] Start: 09-27-2021 [facility] Start: 1935 Sex Assigned At Not on file [facility] Start: 09-17-2021 End: 09-27-2021 Exposure to SARS-CoV-2 (event) Not sure [facility] Work Phone: Sexual Orientation [facility] Start: 10-09-2018 Sex Female (finding) [facility] Medical Equipment Procedure Code Equipment Code Equipment Original Text Equipment Identifier Dates See Instructions , dx E11.65, Z79.4; check BGT 4 times per day, injects insulin 4x per day; dispense 150 test strips, 11 refills, # 150 EA, 11 Refill(s), Pharmacy: [address], 159, cm, 05/10/21 8:01:00 EST, Height, 70.5, kg, 05/10/21 8:01:... Start: 05-18-2021 See Instructions , dx E11.65; doses inslulin 4x/day, dispense 150 pen needles (5mm 31 G) with 11 refills., # 150 EA, 11 Refill(s), [facility], Diabetes mellitus out of control, 159, cm, 05/10/21 8:01:00 EST, Height, 70.5, kg, /... Start: 05-18-2021 See Instructions , dx E11.65; doses inslulin 4x/day, dispense 150 pen needles (5mm 31 G) with 11 refills., # 150 EA, 11 Refill(s), [facility], Diabetes mellitus out of control, 159, cm, 05/10/21 8:01:00 EST, Height, 70.5, kg, /... Start: 05-18-2021 See Instructions , dx E11.65, Z79.4; check BGT 4 times per day, injects insulin 4x per day; dispense 150 test strips, 11 refills, # 150 EA, 11 Refill(s), Pharmacy: [facility] #[id number], 159, cm, 04/04/22 10:05:00 EST, Height, 66.8, kg, 04/04/22 10:05:00 EST... Start: 08-02-2022 See Instructions , dx E11.65; doses inslulin 4x/day, dispense 150 pen needles (5mm 31 G) with 11 refills., # 150 EA, 11 Refill(s), Pharmacy: [address], Diabetes mellitus out of control, 159, cm, 05/10/21 8:01:00 EST, Height, 70.5, kg, 05/10/21 8:01:00 EST, Dosing Weight Start: 05-18-2021 See Instructions , dx E11.65, Z79.4; check BGT 4 times per day, injects insulin 4x per day; dispense 150 test strips, 11 refills, # 150 EA, 11 Refill(s), Pharmacy: [facility] #[id number], 159, cm, 04/04/22 10:05:00 EST, Height, 66.8, kg, 04/04/22 10:05:00 EST, Dosing Weight Start: 08-02-2022 See Instructions , dx E11.65; doses inslulin 4x/day, dispense 150 pen needles (5mm 31 G) with 11 refills., # 150 EA, 11 Refill(s), Pharmacy: [address], Diabetes mellitus out of control, 159, cm, 05/10/21 8:01:00 EST, Height, 70.5, kg, 05/10/21 8:01:00 EST, Dosing Weight Start: 05-18-2021 See Instructions , dx E11.65, Z79.4; check BGT 4 times per day, injects insulin 4x per day; dispense 150 test strips, 11 refills, # 150 EA, 11 Refill(s), Pharmacy: [facility] #[id number], 159, cm, 04/04/22 10:05:00 EST, Height, 66.8, kg, 04/04/22 10:05:00 EST, Dosing Weight Start: 08-02-2022 See Instructions , dx E11.65, Z79.4; check BGT 4 times per day, injects insulin 4x per day; dispense 150 test strips, 11 refills, # 150 EA, 11 Refill(s), Pharmacy: [facility] #[id number], 160, cm, 02/21/23 13:38:00 EST, Height, 64.3, kg, 02/21/23 13:38:00 EST, Dosing Weight Start: 02-21-2023 See Instructions , dx E11.65; doses inslulin 4x/day, dispense 150 pen needles (5mm 31 G) with 11 refills., # 150 EA, 11 Refill(s), Pharmacy: [facility] #[id number], Diabetes mellitus out of control, 160, cm, 02/21/23 13:38:00 EST, Height, 64.3, kg, 02/21/23 13:38:00 EST, Dosing Weight Start: 02-21-2023 See Instructions , 1 bottle of 100, 90 day supply to test blood sugars once daily. Inulix Freestyle test strips., # 100 EA, 3 Refill(s), Pharmacy: [facility]/pharmacy #[id number], Type II diabetes mellitus, 162.6, cm, 03/14/23 18:13:00 EST, Height, 65.8, kg, 04/02/23 12:36:00 EST, Dosing Weight Start: 05-07-2023 See Instructions , Please provide insurance preferred test strips to match glucose monitor. Test blood sugars once daily., # 100 EA, 3 Refill(s), Pharmacy: [facility], Diabetes mellitus with microalbuminuria Diabetic peripheral vascular disease, 158.5, cm, 05/28/23 13:41:00 EST, Height, 64.5, kg, 05/28/23 13:41:00 EST, Dosing Weight Start: 06-08-2023 DROPLET NDL 31GX 5MM PEN, 0 Refill(s), 63.1 Start: 04-02-2023 See Instructions , test blood sugars once daily, 100 Each, 90 day supply, # 100 EA, 3 Refill(s), Pharmacy: [facility], Diabetes mellitus with microalbuminuria Diabetic peripheral vascular disease, 158.5, cm, 05/28/23 13:41:00 EST, Height, 64.5, kg, 05/28/23 13:41:00 EST, Dosing Weight Start: 06-08-2023 See Instructions , 1 bottle of 100, 90 day supply to test blood sugars once daily. Inulix Freestyle test strips., # 100 EA, 3 Refill(s), [id number], Type II diabetes mellitus, 162.6, cm, 03/14/23 18:13:00 EST, Height, 65.8, kg, 04/02/23 12:36:00 EST, Dosing Weight Start: 05-07-2023 See Instructions , Please provide insurance preferred test strips to match glucose monitor. Test blood sugars once daily., # 100 EA, 3 Refill(s), Pharmacy: [facility], Diabetes mellitus with microalbuminuria Diabetic peripheral vascular disease, 158.5, cm, 05/28/23 13:41:00 EST, Height, 64.5, kg, 05/28/23 13:41:00 EST, Dosing Weight Start: 06-08-2023 DROPLET NDL 31GX 5MM PEN, 0 Refill(s), 63.1 Start: 04-02-2023 See Instructions , test blood sugars once daily, 100 Each, 90 day supply, # 100 EA, 3 Refill(s), Pharmacy: [facility], Diabetes mellitus with microalbuminuria Diabetic peripheral vascular disease, 158.5, cm, 05/28/23 13:41:00 EST, Height, 64.5, kg, 05/28/23 13:41:00 EST, Dosing Weight Start: 06-08-2023 See Instructions , 1 bottle of 100, 90 day supply to test blood sugars once daily. Inulix Freestyle test strips., # 100 EA, 3 Refill(s), Pharmacy: [facility]/pharmacy #[id number], Type II diabetes mellitus, 162.6, cm, 03/14/23 18:13:00 EST, Height, 65.8, kg, 04/02/23 12:36:00 EST, Dosing Weight Start: 05-07-2023 See Instructions , Please provide insurance preferred test strips to match glucose monitor. Test blood sugars once daily., # 100 EA, 3 Refill(s), Pharmacy: [facility], Diabetes mellitus with microalbuminuria Diabetic peripheral vascular disease, 158.5, cm, 05/28/23 13:41:00 EST, Height, 64.5, kg, 05/28/23 13:41:00 EST, Dosing Weight Start: 06-08-2023 DROPLET NDL 31GX 5MM PEN, 0 Refill(s), 63.1 Start: 04-02-2023 See Instructions , test blood sugars once daily, 100 Each, 90 day supply, # 100 EA, 3 Refill(s), Pharmacy: [facility], Diabetes mellitus with microalbuminuria Diabetic peripheral vascular disease, 158.5, cm, 05/28/23 13:41:00 EST, Height, 64.5, kg, 05/28/23 13:41:00 EST, Dosing Weight Start: 06-08-2023 See Instructions , 1 bottle of 100, 90 day supply to test blood sugars once daily. Inulix Freestyle test strips., # 100 EA, 3 Refill(s), Pharmacy: [facility]/pharmacy #[id number], Type II diabetes mellitus, 162.6, cm, 03/14/23 18:13:00 EST, Height, 65.8, kg, 04/02/23 12:36:00 EST, Dosing Weight Start: 05-07-2023 See Instructions , Please provide insurance preferred test strips to match glucose monitor. Test blood sugars once daily., # 100 EA, 3 Refill(s), Pharmacy: [facility], Diabetes mellitus with microalbuminuria Diabetic peripheral vascular disease, 158.5, cm, 05/28/23 13:41:00 EST, Height, 64.5, kg, 05/28/23 13:41:00 EST, Dosing Weight Start: 06-08-2023 DROPLET NDL 31GX 5MM PEN, 0 Refill(s), 63.1 Start: 04-02-2023 See Instructions , test blood sugars once daily, 100 Each, 90 day supply, # 100 EA, 3 Refill(s), Pharmacy: [facility], Diabetes mellitus with microalbuminuria Diabetic peripheral vascular disease, 158.5, cm, 05/28/23 13:41:00 EST, Height, 64.5, kg, 05/28/23 13:41:00 EST, Dosing Weight Start: 06-08-2023 See Instructions , 1 bottle of 100, 90 day supply to test blood sugars once daily. Inulix Freestyle test strips., # 100 EA, 3 Refill(s), Pharmacy: [facility]/pharmacy #[id number], Type II diabetes mellitus, 162.6, cm, 03/14/23 18:13:00 EST, Height, 65.8, kg, 04/02/23 12:36:00 EST, Dosing Weight Start: 05-07-2023 See Instructions , Please provide insurance preferred test strips to match glucose monitor. Test blood sugars once daily., # 100 EA, 3 Refill(s), Pharmacy: [facility], Diabetes mellitus with microalbuminuria Diabetic peripheral vascular disease, 158.5, cm, 05/28/23 13:41:00 EST, Height, 64.5, kg, 05/28/23 13:41:00 EST, Dosing Weight Start: 06-08-2023 DROPLET NDL 31GX 5MM PEN, 0 Refill(s), 63.1 Start: 04-02-2023 See Instructions , test blood sugars once daily, 100 Each, 90 day supply, # 100 EA, 3 Refill(s), Pharmacy: [facility], Diabetes mellitus with microalbuminuria Diabetic peripheral vascular disease, 158.5, cm, 05/28/23 13:41:00 EST, Height, 64.5, kg, 05/28/23 13:41:00 EST, Dosing Weight Start: 06-08-2023 See Instructions , 1 bottle of 100, 90 day supply to test blood sugars once daily. Inulix Freestyle test strips., # 100 EA, 3 Refill(s), [id number], Type II diabetes mellitus, 162.6, cm, 03/14/23 18:13:00 EST, Height, 65.8, kg, 04/02/23 12:36:00 EST, Dosing Weight Start: 05-07-2023 See Instructions , Please provide insurance preferred test strips to match glucose monitor. Test blood sugars once daily., # 100 EA, 3 Refill(s), Pharmacy: [facility], Diabetes mellitus with microalbuminuria Diabetic peripheral vascular disease, 158.5, cm, 05/28/23 13:41:00 EST, Height, 64.5, kg, 05/28/23 13:41:00 EST, Dosing Weight Start: 06-08-2023 DROPLET NDL 31GX 5MM PEN, 0 Refill(s), 63.1 Start: 04-02-2023 See Instructions , test blood sugars once daily, 100 Each, 90 day supply, # 100 EA, 3 Refill(s), Pharmacy: [facility], Diabetes mellitus with microalbuminuria Diabetic peripheral vascular disease, 158.5, cm, 05/28/23 13:41:00 EST, Height, 64.5, kg, 05/28/23 13:41:00 EST, Dosing Weight Start: 06-08-2023 See Instructions , 1 bottle of 100, 90 day supply to test blood sugars once daily. Inulix Freestyle test strips., # 100 EA, 3 Refill(s), Pharmacy: [facility]/pharmacy #[id number], Type II diabetes mellitus, 162.6, cm, 03/14/23 18:13:00 EST, Height, 65.8, kg, 04/02/23 12:36:00 EST, Dosing Weight Start: 05-07-2023 See Instructions , Please provide insurance preferred test strips to match glucose monitor. Test blood sugars once daily., # 100 EA, 3 Refill(s), Pharmacy: [facility], Diabetes mellitus with microalbuminuria Diabetic peripheral vascular disease, 158.5, cm, 05/28/23 13:41:00 EST, Height, 64.5, kg, 05/28/23 13:41:00 EST, Dosing Weight Start: 06-08-2023 DROPLET NDL 31GX 5MM PEN, 0 Refill(s), 63.1 Start: 04-02-2023 See Instructions , test blood sugars once daily, 100 Each, 90 day supply, # 100 EA, 3 Refill(s), Pharmacy: [facility], Diabetes mellitus with microalbuminuria Diabetic peripheral vascular disease, 158.5, cm, 05/28/23 13:41:00 EST, Height, 64.5, kg, 05/28/23 13:41:00 EST, Dosing Weight Start: 06-08-2023 See Instructions , Freestyle Optium Shoshana test strips. Use to check blood sugar once daily. 1 bottle of 100. Dx E11.51, # 1 EA, 11 Refill(s), Pharmacy: [facility], 157.8, cm, 07/29/24 8:38:00 EDT, Height, 64.8, kg, 08/29/24 15:07:00 EDT, Dosing Weight Start: 09-19-2024 See Instructions , dx E11.65, Z74.9 test blood sugars 4 times daily (before meals and bedtime) , 300 Each blood glucose test strips, 90 day supply, 3 refills match to glucometer, # 300 EA, 3 Refill(s), Pharmacy: [facility], Type II diabetes mellitus, 157.8, [...] glucometer, # 300 EA, 3 Refill(s), Pharmacy: [facility], Diabetes mellitus with microalbuminuria Diabetic peripheral vascular disease, 157.8, cm, 07/29/24 8:38:00 EDT, Height, 66.2, kg, 07/29/24 8:38:00 EDT, Dosing Weight Start: 07-29-2024 Functional Status Date Assessment Result Facility 12-13-2023 Functional Status 1st floor bedr oom, 1st floor bathroom, 1st floor laundry [facility] 12-13-2023 Functional Status Identified as high risk, Fall ID band on, Bed alert on, Door open, Room check performed [facility] 12-12-2023 Functional Status Sensory Deficits None A [facility] 12-12-2023 Functional [facility] 12-12-2023 Functional Status Identified as high risk, Fall ID band on [facility] 12-03-2023 Functional Status Assistive Device None A [facility] 12-03-2023 Functional Status ID band on, Call device within reach, Bed in low position [facility] 06-19-2023 Functional Status Standard Safet y ID band on, Allergy Band on, Call device within reach, Bed in low position, Wheels locked, Upper/Half-Length side-rails up, Bedside Cart Locked, Safety level maintained [facility] 03-29-2023 Functional Status Other: 7AM-1PM [facility] 03-29-2023 Functional Status Sequential Com pression Device bilateral knee high applied/on [facility] 03-29-2023 Functional Status Identified as high risk, Fall ID band on, Door open, Non-Slip footwear, supervised while toileting, Room check performed [facility] 03-29-2023 [facility] Status Talisha traore [facility] 03-28-2023 Functional Status Talisha Cam[facility] 03-28-2023 Functional Status Dinner Percent 100 [facility] 03-28-2023 Functional Status Mod I Talisha Camacho [facility] 03-28-2023 [facility] Functional Status Talisha traore [facility] 03-27-2023 Functional Status Positioning Repositions self [facility] 03-27-2023 Functional Status Remains up in chair [facility] 03-27-2023 Functional Status Talisha traore [facility] 03-27-2023 Functional Status Talisha traore [facility] 03-27-2023 Functional Status 10 Talisha traore [facility] 03-27-2023 Functional Status Talisha traore [facility] 03-27-2023 Functional Status Talisha traore [facility] 03-26-2023 Functional Status Talisha traore [facility] 03-26-2023 Functional Status Talisha Cam[facility] 03-26-2023 [facility] Functional Status Talisha [facility] 03-26-2023 Functional Status Talishaaugusto [facility] 03-26-2023 Functional Status Talisah Ho eugenie [facility] 03-25-2023 Functional Status Supervision Talishaaugusto [facility] 03-25-2023 Functional Status Done Talishaaugusto [facility] [place] 03-24-2023 Functional Status Evening Snack Percent 9 5 [facility] 03-24-2023 Functional Status Talisha Doug [facility] 03-24-2023 Functional Status Talishaaugusto Ramirez [place] 03-24-2023 Functional Status Ambulation Patient Effo rt Good [facility] 03-24-2023 Functional Status Talishaaugusto Ramirez [place] 03-23-2023 Functional Status Talishaaugusto Ramirez [place] 03-23-2023 Functional Status Talishaaugusto Ramirez [place] 03-23-2023 Functional Status Mod I Talishaaugusto Ramirez [place] 03-22-2023 Functional Status Talishaaugusto Ramirez [place] 03-22-2023 Functional Status Talishaaugusto Ramirez [place] 03-22-2023 Functional Status Mod I Talishaaugusto [facility] [place] 03-22-2023 Functional Status Talishaaugusto Ramirez [place] 03-21-2023 Functional Status Talishaaugusto Ramirez [place] 03-20-2023 Functional Status Talisha Ho eugenie Ramirez [place] 03-20-2023 Functional Status Talishaaugusto Ramirez [place] 03-20-2023 Functional Status Talishaaugusto Ramirez [place] 03-17-2023 Functional Status Talishaaugusto Ramirez [place] 03-17-2023 Functional Status Talisha Ho eugenie [facility] [place] 03-16-2023 Functional Status Talisha Ho eugenie Ramirez [place] 03-15-2023 Functional Status Talisha Ho eugenie [facility] [place] 03-15-2023 Functional Status Talishaaugusto Ramirez [place] 03-15-2023 Functional Status Multilevel ivone e, 1st floor bedroom, 2nd floor bedroom, 1st floor bathroom, 2nd floor bathroom, 1st floor laundry [facility] 03-14-2023 Functional Status Sensory Deficits None A [facility] 03-14-2023 Functional Status Room check performed [facility] 03-14-2023 Functional Status Talisha [facility]ital 03-14-2023 Functional Status Done [facility] 03-14-2023 Functional Status Breakfast Percent 85 [facility] 03-14-2023 Functional Status Supervised 1 [facility] 03-14-2023 Functional Status Talisha [facility] 03-14-2023 Functional Status [facility] 03-13-2023 Functional Status Min A [facility] 03-13-2023 Functional Status Talisha [facility] 03-13-2023 Functional Status Talisha [facility] 03-13-2023 Functional Status [facility] 03-12-2023 Functional Status Assistive Device Walker [facility] 03-12-2023 Functional Status 100 [facility] 03-12-2023 Functional Status [facility]isha [facility] 03-12-2023 Functional Status Talisha Ho [facility] 03-12-2023 Functional Status [facility] 03-12-2023 Functional Status Multilevel home [facility] 03-12-2023 [facility] Functional Status Ambulation Up with assi stance [facility] 03-11-2023 Functional Status [facility] 03-11-2023 [facility] Functional Status Sensory Deficits None A [facility] 03-10-2023 Functional Status Assistive Device None A [facility] 03-10-2023 Functional Status Two assist [facility] 03-10-2023 Functional Status Standard Safety ID band on [facility] 01-26-2023 Functional Status Minimum assistance [facility] 01-26-2023 Functional Status Minimum assistance [facility] 12-27-2022 Functional Status Activity Sparkle tance Independent [facility] 12-27-2022 Functional Status Standard Safet y ID band on, Allergy Band on, Call device within reach, Bed in low position, Wheels locked, Upper/Half-Length side-rails up, Phone within reach, personal items within reach, Bedside Cart Locked [facility] Mental Status Date Assessment Result Facility 12-13-2023 Mental Status Oriented x 4 [facility] 12-12-2023 [facility] Status [facility] 12-12-2023 [facility]23 Mental Status Orientation Oriented x 4 [facility] 12-03-2023 Mental Status Orientation Oriented x 4 [facility] 12-03-2023 Mental Status [facility] 06-19-2023 Mental Status Orientation Oriented x 4 [facility] 03-29-2023 Mental Status Oriented x 4 [facility] 03-28-2023 [facility]23 [facility]23 [facility]-14-2023 Mental Status Oriented x 4 [facility] 03-14-2023 Mental Status [facility] 03-10-2023 Mental Status Orientation Oriented x 4 [facility] 03-10-2023 Mental Status [facility] 01-26-2023 Mental Status Orientation Oriented x 4 [facility] 01-26-2023 [facility] Mental Status Orientation Oriented x 4 [facility] 12-27-2022 Mental Status [facility] Clinical [facility] 09-27-2021 to 12-13-2023 Note Date & Type Note Facility 12-13-2023 Hospital Discharg e instructions Patient Education 12/13/2023 14:08:37 Near-Syncope, Htze-bu-Vfyf Near-Syncope Near-syncope is when you suddenly get [...] Follow these instructions at home: Medicines Take ixzt-cbf-fjommro and prescription medicines only as told by [...] 09/18/2008 Document Revised: 07/25/2019 Document Reviewed: 02/19/2019 happn Patient Education 2020 [employer]. Follow Up Care 12/12/2023 20:12:24 With:MEY MADDOX Address: [address] [place] [phone] When:3-5 days Comments:Please call to schedule your post-hospital follow-up appointment. [facility] 12-13-2023 Note Discharge Instructions Thank you for allowing [facility] to assist you with your healthcare needs. The following is important discharge information regarding your hospital visit. Your Care Team [facility] Your Diagnosis Cognitive impairment Headache Left shoulder pain Near syncope Symptoms of urinary tract infection What to do next Instructions From Your Doctor All of your regular medications were sent to [facility] in [place]. An antibiotic was sent to [facility] for treatment of possible UTI. It is important that you take your medications as prescribed. Not controlling your blood pressure does put you at risk for stroke. Follow Up Appointments Follow Up with MEY MADDOX When:Within 3-5 days Where:[address] [place] [phone] Additional Information: Please call to schedule your [...] a day Duration: 3 Days Pickup at [facility]/pharmacy #[id number] Changed insulin glargine (Basaglar KwikPen 100 units/ mL subcutaneous solution) 24 unit(s) Subcutaneous Once a day Duration: 30 Days Pickup at [place] [address] Unchanged acetaminophen (Tylenol Extra Strength 500 mg oral tablet) 2 tab(s) by mouth Two (2) times a day Left shoulder pain Duration: 30 Days Pickup at [place] [address] Unchanged aspirin (aspirin 81 mg oral tablet, chewable) 1 tab(s) by mouth Every day Duration: 90 Days Pickup at [place] [address] Unchanged bisoprolol (bisoprolol 5 mg oral tablet) 1 tab(s) by mouth Once a day Pickup at [place] [address] Unchanged DME (Alcohol Swabs) See instructions Diabetes [...] tablet by mouth once daily Pickup at [facility] [address] Unchanged [facility] Med[facility] (DROPLET NDL [id number] PEN) Pharmacy Information [facility] [address]: [address] [phone] [id number] [address], [place] [phone] Please take this list to your next [...] Follow these instructions at home: Medicines Take rztn-paf-xzjtxvf and prescription medicines only as told by [...] Document Reviewed: 02/19/2019 Elsevier Patient Education 2020 happn Inc. Additional Information VACCINATE! IT SAVES LIVES! Members of the community who have not yet received the COVID-19 vaccine and would like to receive it can visit one of [facility] vaccine clinics. There are many vaccine clinic locations within the [facility]. For locations and available times, please visit https://gettheshot.coronavirus.[place].gov/. It is important to note that some COVID mobile vaccine clinics are held outdoors and may be canceled in rainy or stormy conditions. To learn more about pediatric vaccinations (ages 5-11), we invite you to visit the [facility] webpage. https://www.akronFarmans.org/p ages/2624-Klwbu-Gufgmxtzqsq-Freq szazke-Chdeo-Gooyafukq.html To learn more about the COVID-19 vaccine, we invite you to visit the CDC website for a list of frequently asked questions.https://www.cdc.gov/co ronavirus/2019-ncov/vaccines/faq .html [employer] Patient Portal Access Instructions: Stay connected with your healthcare team and access your personal medical information anytime with the [employer] Patient Portal. Please follow the directions below to create your [employer] account: 1.Access the email account you provided upon registration to the hospital/physician office.2.Look for an invitation email from [facility].3.Open the email and access the invitation link: Accept Invitation to [employer].4.Fill in the required christian to create your account. To access your account, visit [email or web address]. Click the blue button labeled Access Patient [...] you will allow to register on the [employer] Patient Portal for access to your information. You can also access the [employer] Patient Portal on the [employer] ricco. Simply click on Patient Portal and then log into your account. If you would like to receive a full copy of your medical records, please contact the [facility] Medical Records Department by calling [phone], Sunday through Sunday between 8 a.m. and [...] Call your local pharmacy or go to http://Segopotso.[facility]/4L3Rz7h to find one close to you.3.Make use of household items: Use cat litter or old coffee grounds to dispose medications if other options are not available. Mix your drugs with these household products, seal them in an airtight container and throw it into the garbage. Call [facility]: [phone] to be sure your drugs can be [...] CHART COPY. Signatures Patient Education Materials Near-Syncope, Uivj-uq-Whez Medication Leaflets My discharge plan and instructions have been reviewed and explained to me and IJOÃO BRIGITTE D understand my current condition and have read and understand these discharge instructions. I have received a written copy of the plan/instructions. If I have questions, I am aware that I should contact my doctor. Patient/National Account Executive Signature: Date/Time: Relationship to Patient: Witness Name/Signature: Date/Time: [facility] 12-13-2023 Evaluation + Plan note Extrac carmen from: Title:History and Physical Author:MOHIT JOHNS Date:12/13/23 1. Headache 2. Cognitive impairment 3. [...] Date:12/14/2023 04:30:00 PM Scheduled Provider:EDDIE ESCOBEDO PA-C Location:[facility] Appointment Type:PC OV ED Follow Up [facility] 08-29-2024 Note Date of Service 12/12/2023 Chief Complaint syncope History of Present Illness 88-year-old female with past medical history significant for type 2 diabetes mellitus on insulin athome, peripheral vascular disease, CKD stage 3B, brachial neuritis hypertension, CVA. Patient presented to [facility] emergency department on 12/11 reports of [...] without CHF 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 nephropathy Left knee pain custodial current use of insulin Low back pain [...] BID DME MISCellaneous See Instructions DROPLET NDL [id number] PEN ibuprofen 200 mg oral tablet 400 [...] Never., 12/10/2018 Home/Environment Living situation: Home/Independent. 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, 2 sons are in the area [...] by MOHIT JOHNS on 12/13/2023 11:57 AM [facility]08-29-2024 Pastoral care Progress note Pastoral Care Note Entered On: 12/13/2023 9:32 EDT Performed On: 12/13/2023 9:27 EDT by Doc Ash Pastoral Care Type of Pastoral Visit : Initial visit Spiritual Care Visit Initiated by : Communications Technician Spiritual Care Reason for Visit : General [...] by Doc Ash on 12/13/2023 09:27 AM [facility]08-28-2024 Note ORIGINAL EXAMINATION: ONE XRAY VIEW OF [...] Date: 12/12/2023 9:31:56 PM Ordering Provider: [facility]08-28-2024 Note ORIGINAL EXAMINATION: CT OF THE HEAD [...] Date: 12/12/2023 9:32:34 PM Ordering Provider[facility] Note Sinus rhythm Left axis deviation Electronic Signature: ALVAREZ WONG MD 12/12/2023 20:52:05[facility] 08-28-2024 Hospital Discharge instructions Patient Education 12/12/2023 [...] can, walk or bike instead of driving. Esmond leaves, garden, or do household repairs. Be [...] healthcare provider before stopping or changing them. [phone] [employer]. [address] [place] [address], [place] [address]. All rights reserved. This information is not intended as a substitute for professional medical care. Always follow yourhealthcare professional's instructions. Follow Up Care 12/12/2023 16:17:34 With:MEY MADDOX Address: [address] [place] [phone] When:2-4 days [facility] 08-28-2024 Note Discharge Instructions Thank you for allowing [facility] to assist you with your healthcare needs. [...] Up with MEY MADDOX When:Within 2-4 days Where:[address] [place] [phone] Allergies Crestor (Moderate) Myalgia Demerol HCl SEVERE [...] once daily Unchanged Misc Medication (DROPLET NDL [id number] PEN) Please take this list to your [...] can, walk or bike instead of driving. Esmond leaves, garden, or do household repairs. Be [...] healthcare provider before stopping or changing them. [phone] [employer]. [address] [place] [address]. All rights reserved. This information is not intended as a substitute for professional medical care. Always follow yourhealthcare professional's instructions. Additional Information VACCINATE! IT SAVES LIVES! Members of the community who have not yet received the COVID-19 vaccine and would like to receive it can visit one of [facility] vaccine clinics. There are many vaccine clinic locations within the [facility]. For locations and available times, please visit www.gettheshot.coronavirus.[place].gov/. It is important to note that some COVID mobile vaccine clinics are held outdoors and may be canceled in rainy or stormy conditions. To learn more about pediatric vaccinations (ages 5-11), we invite you to visit the [facility] webpage. https://www.[facility].org/pages/2661-Mrjaz-Ubijbhpaaih-Cgvwnfmcmv-Sbwdq-Yrt stions.htmlTo learn more about the COVID-19 vaccine, we invite you to visit the CDC website for a list of frequently asked questions. https://www.cdc.gov/coronavirus/2019-ncov/vaccines/faq.html [employer] Patient Portal Access Instructions: Stay connected with your healthcare team and access your personal medical information anytime with the [employer] Patient Portal. If you would like a full copy of your medical records please contact the [facility] Medical Records Department Sunday through Sunday between 8a.m. and 4:30p.m. Please follow the directions below to access the portal: 1.Access the email account you provided upon registration to the hospital.2.Look for an invitation email from [facility].3.Open the email and access the invitation link: Accept Invitation to [employer]4.Fill in the required christian to create your account. Sign into [email or web address] with your username and password that you [...] you will allow to register on the [employer] Patient Portal for access to your information. You can also access the [employer] Patient Portal on the K[employer] ricco. Simply click on Health Records under [employer] and then click on the [employer] logo. HOW TO SAFELY DISPOSE OF PRESCRIPTION [...] Call your local pharmacy or go to http://Segopotso.[facility]/9I1Sa2w to find one close to you.3.Make use of household items: Use cat litter or old coffee grounds to dispose medications if other options arenot available. Mix your drugs with these household products, seal them in an airtight container andthrow it into the garbage. Call [facility]: [phone] to be sure your drugs can be [...] aware that I should contact my doctor. Patient/National Account Executive Signature: Date/Time: Relationship to Patient: Witness Name/Signature: Date/Time: [facility]08-20-2024 Hospital Discharge instructions Patient Education 12/03/2023 23:17:02 [...] face You have trouble talking or seeing [phone] [employer]. [address] [place] [address], [place] [address]. All rights reserved. This information is not [...] that stimulates the heart. This includes many xpwd-tak-fvmpktb cold and sinus decongestant pills and sprays, as well as diet pills. Check the warnings about high blood pressure on thelabel. Before purchasing any kluv-wue-hdztrtw medicines or supplements, always ask the pharmacist [...] on home blood pressure monitoring from the [employer]. Don't smoke or drink coffee [...] of the face Trouble speaking or seeing [phone] [employer] [place] [address]. All rights reserved. This information is not intended as a substitute for professional medical care. Always follow yourhealthcare professional's instructions. Follow Up Care 12/03/2023 21:03:02 With:MEY MADDOX Address: [address] [place] [phone] When:2-4 days [facility] 08-19-2024 Note Discharge Instructions Thank you for allowing [facility] to assist you with your healthcare needs. The following is importantdischarge information regarding your hospital visit. Diagnosis from Today's Visit Headache Hypertension What to Do Next Instructions from Your Care Team No qualifying data available. Post Acute Orders No qualifying data available. You Need to Schedule the Following Appointments Follow Up with MEY MADDOX When:Within 2-4 days Where:[address] [place] [address] [place] [phone] Allergies Crestor (Moderate) Myalgia Demerol HCl SEVERE [...] once daily Unchanged Misc Medication (DROPLET NDL 05ST5MG PEN) Please take this list to your [...] face You have trouble talking or seeing [phone] [employer]. [address] [place] [address]. All rights reserved. This information is not [...] that stimulates the heart. This includes many bvgs-fvo-opwvuan cold and sinus decongestant pills and sprays, as well as diet pills. Check the warnings about high blood pressure on thelabel. Before purchasing any vabj-ovm-tsadikq medicines or supplements, always ask the pharmacist [...] on home blood pressure monitoring from the [employer]. Don't smoke or drink coffee [...] of the face Trouble speaking or seeing [phone] [employer]. [address] [place] [address]. All rights reserved. This information is not intended as a substitute for professional medical care. Always follow yourhealthcare professional's instructions. Additional Information VACCINATE! IT SAVES LIVES! Members of the community who have not yet received the COVID-19 vaccine and would like to receive it can visit one of [facility] vaccine clinics. There are many vaccine clinic locations within the [facility]. For locations and available times, please visit www.gettheshot.coronavirus.[place].gov/. It is important to note that some COVID mobile vaccine clinics are held outdoors and may be canceled in rainy or stormy conditions. To learn more about pediatric vaccinations (ages 5-11), we invite you to visit the [facility] webpage. https://www.[facility].org/pages/8927-Dajcr-Teevijmbwst-Aqceobkrhq-Oksla-Vyw stions.htmlTo learn more about the COVID-19 vaccine, we invite you to visit the CDC website for a list of frequently asked questions. https://www.cdc.gov/coronavirus/2019-ncov/vaccines/faq.html [employer] Patient Portal Access Instructions: Stay connected with your healthcare team and access your personal medical information anytime with the [employer] Patient Portal. If you would like a full copy of your medical records please contact the [facility] Medical Records Department Sunday through Sunday between 8a.m. and 4:30p.m. Please follow the directions below to access the portal: 1.Access the email account you provided upon registration to the [facility].2.Look for an invitation email from [facility].3.Open the email and access the invitation link: Accept Invitation to [employer]4.Fill in the required christian to create your account. Sign into [email or web address] with your username and password that you [...] you will allow to register on the [employer] Patient Portal for access to your information. You can also access the [employer] Patient Portal on the K[employer] ricco. Simply click on Health Records under [employer] and then click on the [employer] logo. HOW TO SAFELY DISPOSE OF PRESCRIPTION [...] Call your local pharmacy or go to http://Segopotso.[facility]/5Q4Nr3y to find one close to you.3.Make use of household items: Use cat litter or old coffee grounds to dispose medications if other options arenot available. Mix your drugs with these household products, seal them in an airtight container andthrow it into the garbage. Call [facility]: [phone] to be sure your drugs can be [...] aware that I should contact my doctor. Patient/National Account Executive Signature: Date/Time: Relationship to Patient: Witness Name/Signature: Date/Time: [facility]08-19-2024 Note ORIGINAL EXAMINATION: CT OF THE HEAD [...] Date: 12/03/2023 10:07:19 PM [facility]ing [facility] Note Sinus rhythm Left anterior fascicular block Abnormal R-wave progression, late transition Left ventricular hypertrophy Electronic Signature: NEHAL PIERCE MD 12/03/2023 21:34:31[facility] 03-05-2024 Hospital Discharge instructions Patient Education 06/19/2023 [...] splint gets wet, dry it with a office chair assembler on a cool setting. You may use kpnq-vfm-pgrmgka pain medicine to control pain, unless another [...] cast or splint develops cracks or breaks [phone] [employer]. [address] [place] [address], [place] [address]. All rights reserved. This information is not intended as a substitute for professional medical care. Always follow yourhealthcare professional's instructions. Follow Up Care 06/19/2023 10:41:55 With:ROEL VASQUEZ DO Orthopedic Address: [address] [place] [address], [address] [place] [address]- [phone] When:2-4 days Comments:call today to arrange an appointment [facility] 03-05-2024 Emergency department Discharge summary Discharge Instructions Thank you for allowing [facility] to assist you with your healthcare needs. [...] call today to arrange an appointment Where: [address] [place] [address], [address] [place] [address] [phone] Allergies Crestor (Myalgia) Demerol HCl (SEVERE N/V) [...] once daily Unchanged Misc Medication (DROPLET NDL 27GY1YY PEN) Please take this list to your [...] splint gets wet, dry it with a office chair assembler on a cool setting. You may use npdg-hpc-fwzkpdf pain medicine to control pain, unless another [...] cast or splint develops cracks or breaks [phone] [employer]. [address] [place] [address], [place] [address]. All rights reserved. This information is not intended as a substitute for professional medical care. Always follow yourhealthcare professional's instructions. Additional Information VACCINATE! IT SAVES LIVES! Members of the community who have not yet received the COVID-19 vaccine and would like to receive it can visit one of [facility] vaccine clinics. There are many vaccine clinic locations within the [facility]. For locations and available times, please visit www.gettheshot.coronavirus.[place].gov/. It is important to note that some COVID mobile vaccine clinics are held outdoors and may be canceled in rainy or stormy conditions. To learn more about pediatric vaccinations (ages 5-11), we invite you to visit the [facility] webpage. https://www.[employer].org/pages/4665-Tnabg-Pnpegnnsqqs-Fwqrpadtox-Ufrhe-Rpg stions.htmlTo learn more about the COVID-19 vaccine, we invite you to visit the CDC website for a list of frequently asked questions. https://www.cdc.gov/coronavirus/2019-ncov/vaccines/faq.html [facility] [employer] Patient Portal Access Instructions: Stay connected with your healthcare team and access your personal medical information anytime with the [employer] Patient Portal. If you would like a full copy of your medical records please contact the [facility] Medical Records Department Sunday through Sunday between 8a.m. and 4:30p.m. Please follow the directions below to access the portal: 1.Access the email account you provided upon registration to the [facility].2.Look for an invitation email from [facility].3.Open the email and access the invitation link: Accept Invitation to [employer]4.Fill in the required christian to create your account. Sign into [email or web address] with your username and password that you [...] you will allow to register on the [employer] Patient Portal for access to your information. You can also access the [employer] Patient Portal on the [employer] ricco. Simply click on Health Records under [employer] and then click on the [employer] logo. HOW TO SAFELY DISPOSE OF PRESCRIPTION [...] Call your local pharmacy or go to http://Segopotso.[facility]/3L1Dm3m to find one close to you.3.Make use of household items: Use cat litter or old coffee grounds to dispose medications if other options arenot available. Mix your drugs with these household products, seal them in an airtight container andthrow it into the garbage. Call [facility]: [phone] to be sure your drugs can be [...] and explained to me and I,ALEXUS MOYER Abigail understand my current condition and have read and understand these discharge instructions. I have received a written copy of the plan/instructions. If I have questions, I am aware that I should contact my doctor. Patient/National Account Executive Signature: Date/Time: Relationship to Patient: Witness Name/Signature: Date/Time: [facility]03-05-2024 Note ORIGINAL EXAMINATION: THREE XRAY VIEWS OF [...] Date: 06/19/2023 11:16:31 AM Ordering Provider: [facility] Discharge instructions Patient Education 03/29/2023 12:49:01 Weakness, Aacb-ve-Vyuw Weakness Weakness is a lack of strength. [...] about working with a physical therapist or health and fitness instructor to help you get stronger. General instructions Take ewum-ebo-hpsmkfe and prescription medicines only as told by [...] 03/15/2009 Document Revised: 11/06/2018 Document Reviewed: 11/06/2018 happn Patient Education 2020 [employer]. Follow Up Care 03/14/2023 15:44:42 With:MEY MADDOX SEQUINS SLINGER-MACHINE PULLER OVER Address: [address] [place] [address] [place] [address] [phone] When:04/02/2023 12:30:00 Comments:This is your post-hospital follow-up appointment. [facility] 12-14-2023 Note Discharge Instructions Thank you for [...] Follow-Up 04/02/2023 12:30 PM EST MEY MADDOX [employer] [facility] [address] [place] [id number] Follow Up Appointments Follow Up with MEY MADDOX When 04/02/2023 12:30 PM EST Why: This is your post-hospital follow-up appointment. Where: [address] [place] [phone] The Following Activity and Diet Have Been [...] Brachial neuritis Duration: 30 Days Pickup at [facility] #[id number] Changed acetaminophen 650 Milligram by mouth Every [...] a meal Duration: 30 Days Pharmacy Information [facility] #[id number]: [address], [place] [phone] What How Much When Comments Stop Taking [...] Medication Leaflets insulin glargine (IN jackson carmine OSCAR hunt) Basaglar KwikPen, Basaglar Tempo Pen, Insulin Glargine Prefilled Pen, Insulin Glargine Solostar Pen, Lantus, Lantus Solostar Pen, Semglee (Prefilled Pen), Semglee (Vial), Toujeo Max SoloStar, Toujeo SoloStar What is the most important information I [...] may report side effects to FDA at 8-515-JJV-7521. What other drugs will affect insulin glargine? Many drugs can affect your blood sugar and may also affect insulin glargine. This includes prescription and hedp-jer-dtwqyvo medicines, vitamins, and herbal products. Tell your [...] to ensure that the information provided by LogicTree. ('Gravitanttum') is accurate, up-to-date, and complete, but no guarantee is made to that effect. Drug information contained herein may be time sensitive. Proxible information has been compiled for use by healthcare practitioners and consumers in the [place] and therefore Proxible does not warrant that uses outside of the [place] are appropriate, unless specifically indicated otherwise. AdToniks drug information does not endorse drugs, diagnose patients or recommend therapy. AdToniks drug information isan informational resource designed to [...] effective or appropriate for any given patient. [facility] does not assume any responsibility for any aspect of healthcare administered with the aid of information [facility] provides. The information contained herein is not intended to cover all possible uses, directions, precautions, warnings, drug interactions, allergic reactions, or adverse effects. If you have questions about the drugs you are taking, check with your doctor, nurse or pharmacist. Copyright 4049-0275 [facility]. Version: 17.. Revision Date: 11/24/2022. nifedipine (rodger [...] products. Avoid taking an herbal supplement containing Clint's wort. Avoid getting up too fast from [...] may report side effects to FDA at 7-451-NVK-7676. What other drugs will affect nifedipine? If [...] or stop using. This includes prescription and bdtu-dul-jyhwvnr medicines, vitamins, and herbal products. Not all [...] to ensure that the information provided by LogicTree. ('Multum') is accurate, up-to-date, and complete, but no guarantee is made to that effect. Drug information contained herein may be time sensitive. Proxible information has been compiled for use by healthcare practitioners and consumers in the [place] and therefore Proxible does not warrant that uses outside of the [place] are appropriate, unless specifically indicated otherwise. AdToniks drug information does not endorse drugs, diagnose patients or recommend therapy. AdToniks drug information isan informational resource designed to [...] effective or appropriate for any given patient. Pro[employer]ible does not assume any responsibility for any aspect of healthcare administered with the aid of information Proxible provides. The information contained herein is not intended to cover all possible uses, directions, precautions, warnings, drug interactions, allergic reactions, or adverse effects. If you have questions about the drugs you are taking, check with your doctor, nurse or pharmacist. Copyright 9915-3959 [employer]. Version: 15.. Revision Date: 11/17/2022. aspirin (oral) ( pir in) Aspi-Cor, Jamey Plus, Durlaza, Ecotrin, Miniprin, Vazalore What is the most important information I should know about aspirin? Aspirin can cause Wiley's syndrome, a serious and sometimes fatal condition in children. What is aspirin? Aspirin is a salicylate (cw-MAA-dq-ate) that is used to treat pain, and [...] may report side effects to FDA at 4-812-TJK-6453. What other drugs will affect aspirin? Ask [...] drugs may affect aspirin, including prescription and sath-zzo-vzbyjyi medicines, vitamins, and herbal products. Not all [...] to ensure that the information provided by LogicTree. ('Traityum') is accurate, up-to-date, and complete, but no guarantee is made to that effect. Drug information contained herein may be time sensitive. Proxible information has been compiled for use by healthcare practitioners and consumers in the [place] and therefore Proxible does not warrant that uses outside of the [place] are appropriate, unless specifically indicated otherwise. [employer]Toniks drug information does not endorse drugs, diagnose patients or recommend therapy. AdToniks drug information isan informational resource designed to [...] effective or appropriate for any given patient. [facility] does not assume any responsibility for any aspect of healthcare administered with the aid of information [facility] provides. The information contained herein is not intended to cover all possible uses, directions, precautions, warnings, drug interactions, allergic reactions, or adverse effects. If you have questions about the drugs you are taking, check with your doctor, nurse or pharmacist. Copyright [facility] [employer]. Version: 18.. Revision Date: 11/06/2022. pantoprazole (oral/injection) (serrano TOE [...] may report side effects to FDA at 2-018-TXE-3411. What other drugs will affect pantoprazole? Tell your doctor about all your other medicines, especially: digoxin; methotrexate; or a diuretic or 'water pill'. This list is not complete. Other drugs may affect pantoprazole, including prescription and wljj-uvr-hxpxzrd medicines, vitamins, and herbal products. Not all [...] to ensure that the information provided by [employer]Tree. ('Multum') is accurate, up-to-date, and complete, but no guarantee is made to that effect. Drug information contained herein may be time sensitive. Proxible information has been compiled for use by healthcare practitioners and consumers in the [place] and therefore Proxible does not warrant that uses outside of the [place] are appropriate, unless specifically indicated otherwise. AdToniks drug information does not endorse drugs, diagnose patients or recommend therapy. AdToniks drug information isan informational resource designed to [...] effective or appropriate for any given patient. Pro[employer]ible does not assume any responsibility for any aspect of healthcare administered with the aid of information Proxible provides. The information contained herein is not intended to cover all possible uses, directions, precautions, warnings, drug interactions, allergic reactions, or adverse effects. If you have questions about the drugs you are taking, check with your doctor, nurse or pharmacist. Copyright 8884-6689 [employer]. Version: 22.01. Revision Date: 03/28/2023. clopidogrel (kloe [...] will not stop. (more content not included)... [facility]12-10-2023 Note Date of Service 03/25/23 Subjective Pt [...] may include grammatical and/or spelling errors. CPT: 82604 Time Spent 20 minutes Digitally Signed by MOHIT JOHNS on 03/25/2023 01:54 PM [facility]12-10-2023 Note Date of Service 03/15/2023 Chief Complaint weakness History of Present Illness Patient is an 87-year-old female, who follows with Mey Maddox CNP with a past medical history significant for type 2 diabetes, hypertension, stage 3a chronic kidney disease, CVA, and brachial neuritis, presented initially to [facility] emergency department on 03/10/2023 with complaint of worsening right upper extremity numbness and tingling, ataxia and dizziness. Because patient presented on the weekend and MRI was not available, patient was transferred to [facility] for neurology consultation and MRI of [...] head without contrast was done in the [facility] ED and showed no acute pathology. Patient has a severe allergy to IV contrast and was, therefore, no sent for CTA of the head and neck. She was transferred that evening to [facility] and seen by neurology. MRA of [...] recommended skilled stay. [facility] Introduced self and role of hospitalist REVENUE COORDINATOR in her swing program stay. Patient denies [...] to PT and OT to evaluate and treat.online services manager following for discharge planning. 2. Type 2 [...] withphysician, discussed plan of care with nursing, social work supervisor and therapy, care conference with pa mendez/family, and documenting in chart. CPT#31986 Problem List/Past Medical History Ongoing Aortic atherosclerosis [...] without CHF 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 nephropathy Left knee pain bulb tester current use of insulin Low back pain [...] Never., 12/10/2018 Home/Environment Living situation: Home/Independent. 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, 2 sons are in the area [...] by ARYA FERNANDEZ on 03/15/2023 02:12 PM [facility]12-07-2023 Note Date of Service 03/22/2023 Subjective Has [...] may include grammatical and/or spelling errors. CPT: 27821 Digitally Signed by MOHIT JOHNS on 03/22/2023 05:06 PM [facility]12-04-2023 Note Date of Service 03/19/2023 Chief Complaint [...] to PT and OT to evaluate and treat.online services manager following for discharge planning. 2. Type 2 [...] patient, collaborating withphysician, and documenting in chart. CPT#99429 Digitally Signed by ARYA FERNANDEZ on 03/19/2023 11:55 AM [facility]11-30-2023 Note. MICRO - Microbiology PROCEDURE: Blood Culture [...] Locations *1: This test was performed at: [address], [address] [place], [place] [address]-15-2023 Note. MICRO - Microbiology PROCEDURE: Blood Culture [...] Locations *1: This test was performed at: [address], [address] [place], [place] [address]-15-2023 Evaluation + Plan noteExtracted from: Title:History and Physical Author:ARYA FERNANDEZ APRN-MACHINE PULLER OVER Date:03/15/23 1. Weakness Acute, secondary to recent left lacunar infarct. Consult placed to PT and OT to evaluate and treat. online services manager following for discharge planning. 2. Type 2 [...] physician, discussed plan of care with nursing, social work supervisor and therapy, care conference with patient/family, and documenting in chart. CPT#46140 Addendum by JONO VALLES MD on March 25, 2023 09:12:23 EST Encounter was completed as a tele-consult over the phone. Care was discussed with collaborating SEQUINS SLINGER Future Appointments Appointment Date:04/02/2023 12:30:00 PM Scheduled Provider:MEY MADDOX APRN-MOLLY Location:[facility] Appointment Type[facility] Follow-Up Future Scheduled Tests Laboratory* Thyroid Stimulating Hormone 04/04/22 * A1C Hemoglobin 04/04/22 * Complete Blood Count 04/04/22 * Lipid Profile 04/04/22 * Hepatitis C Antibody IgG 04/04/22 * Microalbumin Level Urine 04/04/22 * Complete Metabolic Panel 04/04/22 Radiology* BD Bone Density DEXA Axial Skeleton 04/04/22 [facility] 11-30-2023 Note Date of Service 03/15/2023 Chief Complaint weakness History of Present Illness Patient is an 87-year-old female, who follows with Mey Maddox CNP with a past medical history significant for type 2 diabetes, hypertension, stage 3a chronic kidney disease, CVA, and brachial neuritis, presented initially to [facility] emergency department on 03/10/2023 with complaint of worsening right upper extremity numbness and tingling, ataxia and dizziness. Because patient presented on the weekend and MRI was not available, patient was transferred to [facility] for neurology consultation and MRI of [...] head without contrast was done in the [facility] ED and showed no acute pathology. Patient has a severe allergy to IV contrast and was, therefore, no sent for CTA of the head and neck. She was transferred that evening to [facility] and seen by neurology. MRA of [...] recommended skilled stay. Patient was transferred to [facility] for ongoing therapy. Introduced self and role of hospitalist REVENUE COORDINATOR in her swing program stay. Patient denies [...] to PT and OT to evaluate and treat.online services manager following for discharge planning. 2. Type 2 [...] withphysician, discussed plan of care with nursing, social work supervisor and therapy, care conference with pa mendez/family, and documenting in chart. CPT#02670 Problem List/Past Medical History Ongoing Aortic atherosclerosis [...] without CHF 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 nephropathy Left knee pain bulb tester current use of insulin Low back pain [...] Never., 12/10/2018 Home/Environment Living situation: Home/Independent. 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, 2 sons are in the area [...] Code, Constant Order Digitally Signed by ARYA FERNANDEZMACHINE PULLER OVER on 03/15/2023 02:12 PM [facility]2023 Hospital Discharge instructions Patient Education 03/14/2023 15:43:37 [...] Do I need to meet with a communications technician? What equipment will I need to care for myself at home? What diabetes medicines do I need? When should I take them? How often do I need to check my blood sugar? What number can I call if I have questions? When is my next doctor's visit? Where can I find a support group for people with diabetes? Where to find more information [place] Diabetes Association: www.diabetes.org [place] Association of Diabetes Educators: www.diabeteseducator.org/patient-resources Contact a [...] Document Reviewed: 07/05/2018 Elsevier Patient Education 2020 happn Inc. Follow Up Care 03/10/2023 14:02:02 With:[facility], Address:Unknown When:1-2 days Comments:Room 239 [facility] Address: When:Within 3 Week(s) [facility] [place] [address] or Mein With:MEY MADDOX Address: [address] [place] [address]- When:3-7 days Comments:Please call the office within 2 days to schedule a follow-up appointment. [facility] 2023 Note Discharge Instructions Thank you for allowing [facility] to assist you with your healthcare needs. [...] wear for 30 days. Please follow-up with [facility]. I was unable to find records of your insulin. Therefore I prescribed insulin for you. If you have insulin at home, feel free to resume your original regimen. We have added ezetimibe for your cholesterol. Continue to follow with your primary care provider. Follow Up Appointments Follow Up with [facility], When Within 1-2 days Why: Room 239 Follow Up with [facility] When In 3 weeks Why: [facility] [address] [place] [address] or Main Where: Follow Up with MEY MADDOX When Within 3-7 days Why: Please call the office within 2 days to schedule a follow-up appointment. Where: [address] [place] [address]- The Following Activity and Diet Have Been [...] days after discharge, please call [facility] at [phone]. Transfer of Care OT - Ordered -- [...] 12 hours Duration: 1 Days Pickup at [facility] #58204 New clopidogrel (Plavix 75 mg oral tablet) 1 tab(s) by mouth Once a day Duration: 30 Days Refills: 1 Pickup at [facility] #83190 New ezetimibe (ezetimibe 10 mg oral tablet) 1 tab(s) by mouth Once a day Pickup at [facility] #75891 New glucose (glucose 50% intravenous solution) 25 Milliliter IV Push As Directed as needed for Hypoglycemia New hydrALAZINE (hydrALAZINE 20 mg/ mL injectable solution) 0.5 Milliliter IV Push Every 4 hours as needed for Blood pressure control New insulin glargine (Lantus Solostar Pen 100 units/ mL 3 mL Pen) 15 unit(s) Subcutaneous Daily at bedtime Diabetes Pickup at [facility] #81104 New insulin lispro (HumaLOG) (HumaLOG KwikPen 100 units/ mL injectable PEN) 5 unit(s) Subcutaneous Three (3) times a day with meals Diabetes Duration: 30 Days Hold if you eat less than 50% of your meal Pickup at [facility] #40232 New melatonin (melatonin 3 mg oral tablet) 1 tab(s) by mouth Daily at bedtime as needed for Sleep New NIFEdipine (NIFEdipine 30 mg oral tablet, extended release) 1 tab(s) by mouth Once a day Duration: 30 Days please discontinue prescription for nifedipine 60. Decreased to 30 to allow for CANDI in addition given diabetes Pickup at [facility] #27252 New pantoprazole (Protonix 40 mg oral enteric coated tablet) 1 tab(s) by mouth Once a day before a meal Duration: 30 Days Pickup at [facility] #[id number] Changed DME (DME MISCellaneous) See instructions Diabetes Pen needles, enough for 4 injections daily x 30 days. Any 4/ 5 mm pen needle in stock and covered by insurance is appropriate Pickup at [facility] #[id number] Changed lisinopril (lisinopril 5 mg oral tablet) 1 tab(s) by mouth Once a day Duration: 30 Days Pickup at [facility] #32460 Unchanged aspirin (aspirin 81 mg oral tablet, chewable) 1 tab(s) by mouth Every day Duration: 90 Days Unchanged atorvastatin (atorvastatin 80 mg oral tablet) 1 tab(s) by mouth Once a day Duration: 90 Days Unchanged bisoprolol (bisoprolol 5 mg oral tablet) 1 tab(s) by mouth Once a day Pharmacy Information [facility] #[id number]: [address], [place] [phone] What How Much When Comments Stop Taking [...] or retail pharmacies. Medication Leaflets cefdinir (BRITTNI larkin) What is the most important information [...] or rash (including diaper rash in an infant taking liquid cefdinir. This is not a complete list of side effects and others may occur. Call your doctor for medical advice about side effects. You may report side effects to FDA at 4-271-NKK-7427. What other drugs will affect cefdinir? Tell your doctor about all your other medicines, especially: probenecid; or vitamin or mineral supplements that contain iron. This list is not complete. Other drugs may affect cefdinir, including prescription and kyvm-ebv-nwmtdnt medicines, vitamins, and herbal products. Not all [...] to ensure that the information provided by LogicTree. ('Multum') is accurate, up-to-date, and complete, but no guarantee is made to that effect. Drug information contained herein may be time sensitive. Proxible information has been compiled for use by healthcare practitioners and consumers in the [place] and therefore Proxible does not warrant that uses outside of the [place] are appropriate, unless specifically indicated otherwise. AdToniks drug information does not endorse drugs, diagnose patients or recommend therapy. AdToniks drug information isan informational resource designed to [...] effective or appropriate for any given patient. Pro[employer]ible does not assume any responsibility for any aspect of healthcare administered with the aid of information Pro[employer]ible provides. The information contained herein is not intended to cover all possible uses, directions, precautions, warnings, drug interactions, allergic reactions, or adverse effects. If you have questions about the drugs you are taking, check with your doctor, nurse or pharmacist. Copyright 7558-2664 [employer]. Version: 9.01. Revision Date: 11/17/2022. clopidogrel (kloe [...] may report side effects to FDA at 7-621-MMB-7400. What other drugs will affect clopidogrel? Sometimes it is not safe to use certain medications at the same time. Some drugs can affect your blood levels of other drugs you take, which may increase side effects or make the medications less effective. Tell your doctor about all your other medicines, especially: a stomach acid spice mixer such as omeprazole, Nexium, or Prilosec; an antidepressant such as citalopram, fluoxetine, sertraline, Cymbalta, Effexor, Lexapro, Pristiq, or Prozac; rifampin; a blood thinner--warfarin, Coumadin, Jantoven; or NSAIDs (nonsteroidal anti-inflammatory drugs)--aspirin, ibuprofen (Advil, Motrin), naproxen (Aleve), celecoxib, diclofenac, indomethacin, meloxicam, and others. This list is not complete. Other drugs may affect clopidogrel, including prescription and qmov-oba-teiasja medicines, vitamins, and herbal products. Not all [...] to ensure that the information provided by LogicTree. ('Multum') is accurate, up-to-date, and complete, but no guarantee is made to that effect. Drug information contained herein may be time sensitive. Proxible information has been compiled for use by healthcare practitioners and consumers in the [place] and therefore Proxible does not warrant that uses outside of the [place] are appropriate, unless specifically indicated otherwise. AdToniks drug information does not endorse drugs, diagnose patients or recommend therapy. AdToniks drug information isan informational resource designed to [...] effective or appropriate for any given patient. Pro[employer]ible does not assume any responsibility for any aspect of healthcare administered with the aid of information Proxible provides. The information contained herein is not intended to cover all possible uses, directions, precautions, warnings, drug interactions, allergic reactions, or adverse effects. If you have questions about the drugs you are taking, check with your doctor, nurse or pharmacist. Copyright 3845-9780 [employer]. Version: 18.. Revision Date: 07/14/2020. Education Materials [...] Do I need to meet with a communications technician? What equipment will I need to care for myself at home? What diabetes medicines do I need? When should I take them? How often do I need to check my blood sugar? What number can I call if I have questions? When is my next doctor's visit? Where can I find a support group for people with diabetes? Where to find more information [place] Diabetes Association: www.diabetes.org [place] Association of Diabetes Educators: www.diabeteseducator.org/patient-resources Contact a [...] Document Reviewed: 07/05/2018 Elsevier Patient Education 2020 happn Inc. Additional Information VACCINATE! IT SAVES LIVES! Members of the community who have not yet received the COVID-19 vaccine and would like to receive it can visit one of [facility] vaccine clinics. There are many vaccine clinic locations within the [facility] [address] [facility]. For locations and available times, please visit https://gettheshot.coronavirus.[place].gov/. It is important to note that some COVID mobile vaccine clinics are held outdoors and may be canceled in rainy or stormy conditions. To learn more about pediatric vaccinations (ages 5-11), we invite you to visit the [facility] webpage. https://www.[email or web address]/pages/[email or web address]-Kxwyl-Vuwfvcbclei-Hnryqqjbmi-Lkrxc-Mzq stions.htmlTo learn more about the COVID-19 vaccine, we invite you to visit the CDC website for a list of frequently asked questions.https://www.cdc.gov/coronavirus/2019-ncov/vaccines/faq.html [employer] Patient Portal Access Instructions: Stay connected with your healthcare team and access your personal medical information anytime with the [employer] Patient Portal. Please follow the directions below to create your [employer] account: 1.Access the email account you provided upon registration to the hospital/physician office.2.Look for an invitation email from [facility].3.Open the email and access the invitation link: AcceptInvitation to [employer].4.Fill in the required christian to create your account. To access your account, visit [employer]. Click the blue button labeled Access Patient Portal and then log in with the username and password that you created in the steps above. You will be able to view your test results, lab results, a summary of your visits, upcoming appointments and more. There is also a convenient messaging option where you can send secure messages to your p LigerTailvider. In addition, you will have the ability to download any documents or summaries to your computer and/or send the information securely to a physician. Remember that your healthcare information is confidential, so carefully consider who you will allowto register on the [employer] Patient Portal for access to your information. You can also access the [employer] Patient Portal on the [facility]where ricco. Simply click on Patient Portal and then log into your account. If you would like to receive a full copy of your medical records, please contact the [facility] Medical Records Department by calling [phone], Sunday through Sunday between 8 a.m. and [...] Call your local pharmacy or go to [email or web address] to find one close to you.3.Make use of household items: Use cat litter or old coffee grounds to dispose medications if other options arenot available. Mix your drugs with these household products, seal them in an airtight container andthrow it into the garbage. Call [facility]: [phone] to be sure your drugs can be [...] aware that I should contact my doctor. Patient/National Account Executive Signature: Date/Time: Relationship to Patient: Witness Name/Signature: Date/Time: [facility] [id number] Note Discharge Instructions Thank you for allowing [...] Follow Up Appointments Follow Up with [facility], When Within 1-2 days Why: Room 239 Follow Up with [facility] When In 3 weeks Why: [facility] [address], [place] [address] or Main Where: Follow Up with [facility] When Within 3-7 days Why: Please call the office within 2 days to schedule a follow-up appointment. [facility] [place] [address]- The Following Activity and Diet [...] within 7 days after discharge, please call [facility] at [phone]. Transfer of Care OT - Ordered -- [...] 12 hours Duration: 1 Days Pickup at [facility] #[id number] New clopidogrel (Plavix 75 mg oral tablet) 1 tab(s) by mouth Once a day Duration: 30 Days Refills: 1 Pickup at [facility] #08494 New ezetimibe (ezetimibe 10 mg oral tablet) 1 tab(s) by mouth Once a day [facility] New glucose (glucose 50% intravenous solution) 25 Milliliter IV Push As Directed as needed for Hypoglycemia New hydrALAZINE (hydrALAZINE 20 mg/ mL injectable solution) 0.5 Milliliter IV Push Every 4 hours as needed for Blood pressure control New insulin glargine (Lantus Solostar Pen 100 units/ mL 3 mL Pen) 15 unit(s) Subcutaneous Daily at bedtime Diabetes [facility] New insulin lispro (HumaLOG) (HumaLOG KwikPen 100 units/ mL injectable PEN) 5 unit(s) Subcutaneous Three (3) times a day with meals Diabetes Duration: 30 Days Hold if you eat less than 50% of your meal Pickup at [facility] #03606 New melatonin (melatonin 3 mg oral tablet) 1 tab(s) by mouth Daily at bedtime as needed for Sleep New NIFEdipine (NIFEdipine 30 mg oral tablet, extended release) 1 tab(s) by mouth Once a day Duration: 30 Days please discontinue prescription for nifedipine 60. Decreased to 30 to allow for CANDI in addition given diabetes Pickup at [facility] #78825 New pantoprazole (Protonix 40 mg oral enteric coated tablet) 1 tab(s) by mouth Once a day before a meal Duration: 30 Days Pickup at [facility] #10192 Changed DME (DME MISCellaneous) See instructions Diabetes Pen needles, enough for 4 injections daily x 30 days. Any 4/ 5 mm pen needle in stock and covered by insurance is appropriate Pickup at [facility] #89631 Changed lisinopril (lisinopril 5 mg oral tablet) 1 tab(s) by mouth Once a day Duration: 30 Days Pickup at [facility] #19173 Unchanged aspirin (aspirin 81 mg oral tablet, chewable) 1 tab(s) by mouth Every day Duration: 90 Days Unchanged atorvastatin (atorvastatin 80 mg oral tablet) 1 tab(s) by mouth Once a day Duration: 90 Days Unchanged bisoprolol (bisoprolol 5 mg oral tablet) 1 tab(s) by mouth Once a day Pharmacy Information [facility] #[id number]: [address], [place] [id number] [phone] What How Much When Comments Stop Taking [...] providers or retail pharmacies. Medication Leaflets cefdinir ([facility] daniel larkin) What is the most important [...] or rash (including diaper rash in an infant taking liquid cefdinir. This is not a complete list of side effects and others may occur. Call your doctor for medical advice about side effects. You may report side effects to FDA at 4-648-ACU-6417. What other drugs will affect cefdinir? Tell your doctor about all your other medicines, especially: probenecid; or vitamin or mineral supplements that contain iron. This list is not complete. Other drugs may affect cefdinir, including prescription and rmtz-etm-ulkvrfw medicines, vitamins, and herbal products. Not all [...] to ensure that the information provided by [employer]. ('Multum') is accurate, up-to-date, and complete, but no guarantee is made to that effect. Drug information contained herein may be time sensitive. [employer] information has been compiled for use by healthcare practitioners and consumers in the [place] and therefore [employer] does not warrant that uses outside of the [place] are appropriate, unless specifically indicated otherwise. [employer]'s drug information does not endorse drugs, diagnose patients or recommend therapy. [employer]'s drug information isan informational resource designed to [...] effective or appropriate for any given patient. [facility] does not assume any responsibility for any aspect of healthcare administered with the aid of information [facility] provides. The information contained herein is not intended to cover all possible uses, directions, precautions, warnings, drug interactions, allergic reactions, or adverse effects. If you have questions about the drugs you are taking, check with your doctor, nurse or pharmacist. Copyright 5059-1944 [employer]. Version: 9.. Revision Date: 11/17/2022. clopidogrel (kloe PID oh [...] may report side effects to FDA at 3-319-PAS-0409. What other drugs will affect clopidogrel? Sometimes it is not safe to use certain medications at the same time. Some drugs can affect your blood levels of other drugs you take, which may increase side effects or make the medications less effective. Tell your doctor about all your other medicines, especially: a stomach acid spice mixer such as omeprazole, Nexium, or Prilosec; an antidepressant such as citalopram, fluoxetine, sertraline, Cymbalta, Effexor, Lexapro, Pristiq, or Prozac; rifampin; a blood thinner--warfarin, Coumadin, Jantoven; or NSAIDs (nonsteroidal anti-inflammatory drugs)--aspirin, ibuprofen (Advil, Motrin), naproxen (Aleve), celecoxib, diclofenac, indomethacin, meloxicam, and others. This list is not complete. Other drugs may affect clopidogrel, including prescription and vrjm-ofk-hssgojc medicines, vitamins, and herbal products. Not all [...] to ensure that the information provided by [employer]. ('Multum') is accurate, up-to-date, and complete, but no guarantee is made to that effect. Drug information contained herein may be time sensitive. [employer] information has been compiled for use by healthcare practitioners and consumers in the [place] and therefore [employer] does not warrant that uses outside of the [place] are appropriate, unless specifically indicated otherwise. [employer] drug information does not endorse drugs, diagnose patients or recommend therapy. AdToniks drug information isan informational resource designed to [...] effective or appropriate for any given patient. [facility] does not assume any responsibility for any aspect of healthcare administered with the aid of information [employer] provides. The information contained herein is not intended to cover all possible uses, directions, precautions, warnings, drug interactions, allergic reactions, or adverse effects. If you have questions about the drugs you are taking, check with your doctor, nurse or pharmacist. Copyright 9523-5170 [employer]. Version: 18.01. Revision Date: 07/14/2020. Education Materials Diabetes Basics [...] Do I need to meet with a communications technician? What equipment will I need to care for myself at home? What diabetes medicines do I need? When should I take them? How often do I need to check my blood sugar? What number can I call if I have questions? When is my next doctor's visit? Where can I find a support group for people with diabetes? Where to find more information [place] Diabetes Association: www.diabetes.org [employer] Association [employer] Diabetes Educators: www.diabeteseducator.org/patient-resources Contact a [...] 07/05/2018 Document Revised: 05/23/2019 Document Reviewed: 07/05/2018 happn Patient Education 2020 happn Inc. Additional Information VACCINATE! IT SAVES LIVES! Members of the community who have not yet received the COVID-19 vaccine and would like to receive it can visit one of [facility] vaccine clinics. There are many vaccine clinic locations within the [facility]. For locations and available times, please visit https://gettheshot.coronavirus.[place].gov/. It is important to note that some COVID mobile vaccine clinics are held outdoors and may be canceled in rainy or stormy conditions. To learn more about pediatric vaccinations (ages 5-11), we invite you to visit the [facility] webpage. https://www.[email or web address]/pages/6195-Bevoa-Nfcxgotqgfh-Yzmxfrtkbk-Fnzga-Zcu stions.htmlTo learn more about the COVID-19 vaccine, we invite you to visit the CDC website for a list of frequently asked questions.https://www.cdc.gov/coronavirus/2019-ncov/vaccines/faq.html [employer] Patient Portal Access Instructions: Stay connected with your healthcare team and access your personal medical information anytime with the [employer] Patient Portal. Please follow the directions below to create your [employer] account: 1.Access the email account you provided upon registration to the hospital/physician office.2.Look for an invitation email from [facility].3.Open the email and access the invitation link: AcceptInvitation to [facility].4.Fill in the required christian to create your account. To access your account, visit [email or web address]. Click the blue button labeled Access Patient [...] who you will allowto register on the [facility] [employer] Patient Portal for access to your information. You can also access the [facility] [employer] Patient Portal on the [facility] [employer] ricco. Simply click on Patient Portal and then log into your account. If you would like to receive a full copy of your medical records, please contact the [facility] Medical Records Department by calling [phone], Sunday through Sunday between 8 a.m. and [...] Call your local pharmacy or go to http://bit.ly/1C4Pz7q to find one close to you.3.Make use of household items: Use cat litter or old coffee grounds to dispose medications if other options arenot available. Mix your drugs with these household products, seal them in an airtight container andthrow it into the garbage. Call [facility]: [phone] to be sure your drugs can be [...] aware that I should contact my doctor. Patient/National Account Executive Signature: Date/Time: Relationship to Patient: Witness Name/Signature: Date/Time: [facility] Nuzpgxep21-01-1947 Note Discharge Instructions Thank you for allowing [facility] to assist you with your healthcare needs. [...] provider. Follow Up Appointments Follow Up with [place], When Within 1-2 days Why: Room 239 Follow Up with [facility] [place] When In 3 weeks Why: [facility] [address] [place] [address] or Main Where: Follow Up with [facility] When Within 3-7 days Why: Please call the office within 2 days to schedule a follow-up appointment. [facility] [place] [address]- The Following Activity and Diet Have Been [...] within 7 days after discharge, please call [facility] at [phone]. Transfer of Care OT - Ordered -- [...] 1 week, Results Notify to: MEY MADDOX APRN-MACHINE PULLER OVER, 03/14/23 15:10:00 EST Transfer of Care Orders [...] 12 hours Duration: 1 Days Pickup at [facility] #81439 New clopidogrel (Plavix 75 mg oral tablet) 1 tab(s) by mouth Once a day Duration: 30 Days Refills: 1 [facility] New ezetimibe (ezetimibe 10 mg oral tablet) 1 tab(s) by mouth Once a day Pickup at [facility] #57495 New glucose (glucose 50% intravenous solution) 25 Milliliter IV Push As Directed as needed for Hypoglycemia New hydrALAZINE (hydrALAZINE 20 mg/ mL injectable solution) 0.5 Milliliter IV Push Every 4 hours as needed for Blood pressure control New insulin glargine (Lantus Solostar Pen 100 units/ mL 3 mL Pen) 15 unit(s) Subcutaneous Daily at bedtime Diabetes Pickup at [facility] #18884 New insulin lispro (HumaLOG) (HumaLOG KwikPen 100 units/ mL injectable PEN) 5 unit(s) Subcutaneous Three (3) times a day with meals Diabetes Duration: 30 Days Hold if you eat less than 50% of your meal Pickup at [facility] #77036 New melatonin (melatonin 3 mg oral tablet) 1 tab(s) by mouth Daily at bedtime as needed for Sleep New NIFEdipine (NIFEdipine 30 mg oral tablet, extended release) 1 tab(s) by mouth Once a day Duration: 30 Days please discontinue prescription for nifedipine 60. Decreased to 30 to allow for CANDI in addition given diabetes Pickup at [facility] #65450 New pantoprazole (Protonix 40 mg oral enteric coated tablet) 1 tab(s) by mouth Once a day before a meal Duration: 30 Days Pickup at [facility] #41539 Changed DME (DME MISCellaneous) See instructions Diabetes Pen needles, enough for 4 injections daily x 30 days. Any 4/ 5 mm pen needle in stock and covered by insurance is appropriate Pickup at [facility] #98250 Changed lisinopril (lisinopril 5 mg oral tablet) 1 tab(s) by mouth Once a day Duration: 30 Days Pickup at [facility] #33904 Unchanged aspirin (aspirin 81 mg oral tablet, chewable) 1 tab(s) by mouth Every day Duration: 90 Days Unchanged atorvastatin (atorvastatin 80 mg oral tablet) 1 tab(s) by mouth Once a day Duration: 90 Days Unchanged bisoprolol (bisoprolol 5 mg oral tablet) 1 tab(s) by mouth Once a day Pharmacy Information [facility]02038: [address], [place] [id number] [phone] What How Much When Comments Stop Taking [...] to receive it can visit one of [facility] vaccine clinics. There are many vaccine clinic locations within the [facility]. For locations and available times, please visit https://gettheshot.coronavirus.[place].gov/. It is important to note that some COVID mobile vaccine clinics are held outdoors and may be canceled in rainy or stormy conditions. To learn more about pediatric vaccinations (ages 5-11), we invite you to visit the [facility] webpage. https://www.[email or web address].org/pages/7040-Wznpf-Aiibtsdnfiq-Prvvaxjdsq-Zqwdx-Duv stions.htmlTo learn more about the COVID-19 vaccine, we invite you to visit the CDC website for a list of frequently asked questions.https://www.cdc.gov/coronavirus/2019-ncov/vaccines/faq.html [facility] Patient Portal Access Instructions: Stay connected with your healthcare team and access your personal medical information anytime with the [facility] [employer] Patient Portal. Please follow the directions below to create your [facility] [employer] account: 1.Access the email account you provided upon registration to the hospital/physician office.2.Look for an invitation email from [facility].3.Open the email and access the invitation link: AcceptInvitation to [facility] [employer].4.Fill in the required christian to create your account. To access your account, visit [email or web address]. Click the blue button labeled Access Patient [...] who you will allowto register on the [facility] [employer] Patient Portal for access to your information. You can also access the [facility] [employer] Patient Portal on the [facility] [employer] ricco. Simply click on Patient Portal and then log into your account. If you would like to receive a full copy of your medical records, please contact the [facility] Medical Records Department by calling [phone], Sunday through Sunday between 8 a.m. and [...] Call your local pharmacy or go to http://bit.ly/[email or web address] to find one close to you.3.Make use of household items: Use cat litter or old coffee grounds to dispose medications if other options arenot available. Mix your drugs with these household products, seal them in an airtight container andthrow it into the garbage. Call [facility]: [phone] to be sure your drugs can be [...] aware that I should contact my doctor. Patient/National Account Executive Signature: Date/Time: Relationship to Patient: Witness Name/Signature: Date/Time: [facility] [id number] Discharge summary Date of Service 03/14/23 Discharge [...] droop and expressive aphasia who presented to [facility] on 03/10/2023 with a chief complaint of right upper extremity numbness and tingling, worsening ataxia/dizziness. 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 Unrevealing echocardiogram, unrevealing 48-hour Holter monitor. Patient wasstable on aspirin and statin until her presentation this hospitalization. On arrival to [facility] patient was hypertensive in the 180s. Laboratory data revealed hyperglycemia with blood sugar of 238. Urinalysis showed evidence of UTI with moderate leukocyte Estrace, loaded WBCs and trace bacteria. Chest x-ray on admission without acute findings. Patient was transferred to [facility] for neurology consultation. She was determined not to be a tPA candidate due to unknown last known well time at 9 PM the night before. On arrival to [facility], neurology was consulted. CT head completed in [place] shows no acute pathology. MRA head limited [...] lacunar infarct, neurology is recommending a 30-day quality assurance monitor final on discharge, DAPT x 21 days then monotherapy with Plavix. Follow-up with neurology. Aggressive lipid management which can be continued as outpatient. Continue to titrate CANDI inhibitor as o utpatient. With regards to urinary tract infection, Patient was treated with ceftriaxone. Currently patient is planning on rehab at [place] Allergies Crestor (Myalgia) Demerol HCl (SEVERE N/V) [...] Code Status - Ordered -- 03/10/23 18:17:00 ANTONI DNRCC-Arrest Do Not Intubate, Constant Order Admission [...] your primary care provider. Medications New Prescription [id number] Milligram by mouth every 6 hours as [...] oral capsule) Follow Up Follow Up with [facility] [place] Bed, [phone] When Within 1-2 days Why: Room 239 [facility] [place] When In 3 weeks Why: [facility] [address], [place] [address] or Main Where: Follow Up with [facility] When Within 3-7 days Why: Please call the office within 2 days to schedule a follow-up appointment. [facility] [place] [address]- Follow Up Appointments Transfer of Care OT - Ordered -- Reason for therapy: Stroke, 03/14/23 15:10:00 EST Transfer of Care PT - Ordered -- Reason for therapy: Stroke, 03/14/23 15:10:00 EST Follow Up Labs/Studies Discharge Labs Transfer of Care Labwork - Ordered -- BMP, monitor on lisinopril, follow-up within: 1 week, Results Notify to: MEY MADDOX APRN-MOLLY, 03/14/23 15:10:00 EST Discharge Studies No Follow-up [...] DANIEL MONTIEL DO on 03/14/2023 03:[address] 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 Unrevealing echocardiogram, unrevealing 48-hour Holter monitor. Patient wasstable on aspirin and statin until her presentation this hospitalization. On arrival to [facility] patient was hypertensive in the 180s. Laboratory data revealed hyperglycemia with blood sugar of 238. Urinalysis showed evidence of UTI with moderate leukocyte Estrace, loaded WBCs and trace bacteria. Chest x-ray on admission without acute findings. Patient was transferred to [facility] for neurology consultation. She was determined not to be a tPA candidate due to unknown last known well time at 9 PM the night before. On arrival to [facility], neurology was consulted. CT head completed in [place] shows no acute pathology. MRA head limited [...] lacunar infarct, neurology is recommending a 30-day quality assurance monitor final on discharge, DAPT x 21 days then monotherapy with Plavix. Follow-up with neurology. Aggressive lipid management which can be continued as outpatient. With regards to urinary tract infection, Patient was treated with ceftriaxone. Currently patient is planning on rehab at [place] Subjective Patient seen and examined. Complaining of [...] DANIEL MONTIEL DO on 03/14/2023 02:[address] [facility] [id number] Note Date of Service 03/13/2023 Chief Complaint stroke Subjective Pt admitted for stroke. Today no new complaints. She is adamant about wanting to go to [facility] rehab. Objective Vitals and Measurements T: 36.5 [...] KOMAL ESTRADA MD on 03/13/2023 05:[address] [facility] [id number] Neurology Progress note Date of Service 03/13/23 [...] Exam Mental Status: Orientation: oriented to person, [facility], and [facility] Language: normal fluency, normal simple comprehension Speech: [...] 2 P 2 2 Toes eq Coordination: Leggyy-aclr-pfxodr movements intact bilaterally Weight Dosing Weight: 66.8 [...] by MONO POON on 03/13/2023 05:[address] [facility] [id number] Note Chief Complaint: Transition plan Transitional Action Points I did speak with patient regards to transitioning to facility for further rehab on discharge related to CVA and weakness she was in agreements to [facility] We will update social professionals to send referral I did answer questions [...] hrs)__Last Charted Minimum Maximum Temp36.4(MAR 13 04:15)36.4(MAR 13 04:15)36.7(MAR 12 11:00) Heart Rate66(MAR 13 04:15)66(MAR 13 04:15)80(MAR 12 11:00) Resp Rate18(MAR 13 04:15)18(MAR 12 11:00)20(MAR 12 19:57) KLV151(MAR 13 04:15)115(MAR 12 23:05)128(MAR 12 15:44) DBP68(MAR 13 04:15)L [...] LVH (left ventricular hypertrophy) Left knee pain bulb tester current use of insulin Low back pain [...] 11 Refill(s). DME: See Instructions, Dexcom G7 circuit court judge, 1 EA, no refills., 1 EA, 0 [...] Use; Details: Use: Never. Home/Environment Details: 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, lives with her , 2 sons [...] presence of Michaelle Cui. I Michaelle Cui REVENUE COORDINATOR personally preformed the services described in this documentation as described by Viviana Mcghee RN in my presence and it is both accurate and complete. This document is transcribed using voice recognition software that may contain typographical errors. Digitally Signed by MICHAELLE CUI on 03/13/2023 10:[address] [id number] Note ORIGINAL HISTORY: Stroke, left facial droop, [...] abnormal intra or extra-axial fluid collections. There decv-yk-zoyxugza punctate and nodular T2 hyperintensities in the cerebral white matter. Dasilva IMPRESSION: Limited examination. 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 Interpreted by: Adeline Arnold MD Preliminary Report By: Adeline Arnold MD Electronically signed By Adeline Arnold MD Dictated Date: 03/12/2023 2:40:59 PM Prelim Date: 03/12/2023 2:42:45 PM Sign Date: 03/12/2023 2:42:45 PM Ordering Provider: [facility]11-27-2023 Note ORIGINAL HISTORY: Stroke COMPARISON: No TECHNIQUE: 2-D fyep-es-zktirg magnetic resonance angiography of the vessels of [...] Sign Date: 03/12/2023 2:50:48 PM Ordering Provider: [facility]11-27-2023 Note ORIGINAL HISTORY: Stroke COMPARISON: No TECHNIQUE: 3D ieya-iq-ziwycp angiography of the head with 3D post [...] Sign Date: 03/12/2023 2:49:02 PM Ordering Provider: [facility]11-27-2023 Note* Exam Date Time Procedure Performing Provider Status 03/12/23 10:18 AM Echocardiogram, Adul t with Bubble Study- Auth (Verified) [facility] 11-27-2023 Note Date of Service 03/12/2023 Chief [...] mg 1 tab(s), Oral, qHS Lab Results 11/26 03:47 WBC: 6.9 Hgb: 12.5 Hct: 36.6 [...] KOMAL ESTRADA MD on 03/12/2023 07:[address] [facility] [id number] Note Chief Complaint Transition plan Transitional Action [...] LVH (left ventricular hypertrophy) Left knee pain custodial current use of insulin Low back pain [...] 11 Refill(s). DME: See Instructions, Dexcom G7 circuit court judge, 1 EA, no refills., 1 EA, 0 [...] Use; Details: Use: Never. Home/Environment Details: 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, lives with her , 2 sons [...] by MICHAELLE CUI on 03/13/2023 10:[address] [facility] [id number] Note. MICRO - Microbiology PROCEDURE: Urine Culture [*1] SOURCE: Urine, Clean Catch BODY SITE: COLLECTED DATE/TIME: 03/10/2023 13:25 EST RECEIVED DATE/TIME: 03/10/2023 17:47 EST START DATE/TIME: 03/10/2023 17:47 EST FREE TEXT SOURCE: FINAL REPORTS Final Report [] Verified Date/Time/Personnel: 03/11/2023 14:20 EST <10,000 cfu/ml. No Significant growth. Sensitivity not indicated. Performing Locations *1: This test was performed at: [facility], [address] [place] [address], [facility] , [facility] ([place])03-11-2023 Neurology Consult note Date of Service March [...] and a statin. She now returns to [place] with acute onset ofright upper extremity weakness [...] Exam Mental Status: Orientation: oriented to person, [facility], and [facility] Language: normal fluency, normal simple comprehension Speech: [...] 2 P 2 2 Toes eq Coordination: Pqfbnr-qhfx-gvtuhe movements intact bilaterally Lab Results The following [...] without CHF 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 nephropathy Left knee pain custodial current use of insulin Low back pain [...] Use, 03/20/2017 Use: Never., 12/10/2018 Home/Environment 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, lives with her , 2 sons [...] VENKAT LASSITER MD on 03/11/2023 03:[address] [facility] [id number] Note Chief Complaint Transition plan Transitional Action [...] Patient is an 87-year-old female admitted to [facility] with an acute CVA. Prior to admission, [...] Rate18(MAR 11 06:15)18(MAR 10 18:12)18(MAR 10 18:12) TLO284(MAR 11 06:15)118(MAR 11 06:15)H 189(MAR 10 18:12) [...] LVH (left ventricular hypertrophy) Left knee pain custodial current use of insulin Low back pain [...] 11 Refill(s). DME: See Instructions, Dexcom G7 circuit court judge, 1 EA, no refills., 1 EA, 0 [...] Use; Details: Use: Never. Home/Environment Details: 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, lives with her , 2 sons [...] dictation software and may contain typographical errors. Hans Ch LPN, am scribing for , and in the presence of Mercedes Gomez CNP. IMercedes CNP, personally performed the services described in this documentation, as scribed byHans LPN in my presence and it is both accurate and complete. Digitally Signed by YULIANA GOMEZ on 03/11/2023 11:[address] [facility] [facility] [id number] History and physical note Date of Service March 10, 2023 History of Present Illness A 87 years old female with past medical history significant for type 2 diabetes mellitus on insulinat home, peripheral vascular disease, CKD stage II, hypertension, CVA in April 2022 with residualleft facial droop and expressive aphasia presented [facility] on March 10 witha chief concern of right upper extremity numbness/tingling, worsening ataxia and dizziness. Patient's last known well time was around 9 PM when she went to bed, when she woke up this morning she fell down. Patient has had some degree of ataxia at baseline but it was worse this morning, alsocomplained of dizziness/fuzziness on my evaluation. Patient has limited Ukrainian proficiency so history is limited. Patient is [...] antiplatelets. Patient did pass swallow evaluation at [facility] so put on diabetic diet -UA [...] SCDs Heparin subcu Note was written using [employer] bindery library technical assistant software. Some of the meaning of the words and sentences might have changed during bindery library technical assistant, if there was ever some confusion about [...] without CHF 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 nephropathy Left knee pain custodial current use of insulin Low back pain [...] Use, 03/20/2017 Use: Never., 12/10/2018 Home/Environment 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, lives with her , 2 sons are in the area and check on them. 2 daughters are out of state. Spouse Name: , 09/01/2022 OTher risks in environment: no current [...] TAMIKA GRACE MD on 03/10/2023 06:[address] [address] [id number] Evaluation + Plan note Diagnostic Tests Pending * Urine Culture 03/10/23 Future Scheduled Tests Laboratory* Thyroid Stimulating Hormone 04/04/22 * A1C Hemoglobin 04/04/22 * Complete Blood Count 04/04/22 * Lipid Profile 04/04/22 * Hepatitis C Antibody IgG 04/04/22 * Microalbumin Level Urine 04/04/22 * Complete Metabolic Panel 04/04/22 Radiology* BD Bone Density DEXA Axial Skeleton 04/04/22 [facility] 11-25-2023 Evaluation + Plan noteExtracted from: Title:History [...] antiplatelets. Patient did pass swallow evaluation at [facility] so put on diabetic diet -UA [...] SCDs Heparin subcu Note was written using [employer] bindery library technical assistant software. Some of the meaning of the words and sentences might have changed during bindery library technical assistant, if there was ever some confusion about [...] BD Bone Density DEXA Axial Skeleton 04/04/[address] [facility] 11-25-[address] Mccallum requested that the patient be ambulated. Patient ambulated to bathroom with 2 assist andthen required a wheelchair to return from bathroom. Patient states she still feels drunk. Dr. Mccallum made aware. Digitally Signed by Ermelinda Chi RN on 03/10/2023 11:55 AM [facility]11-25-2023 Note ORIGINAL EXAMINATION: CT HEAD TECHNIQUE: Axial [...] Sign Date: 03/10/2023 11:00:16 AM Ordering Provider: [facility]11-25-2023 Note ORIGINAL EXAMINATION: ONE XRAY VIEW OF [...] Date: 03/10/2023 10:57:58 AM Ordering Provider[facility]23 NoteSinus rhythm Left anterior fascicular block Abnormal R-wave progression, late transition Probable left ventricular hypertrophy SEE DICTATION Electronic Signature: REGINALD MCCALLUM MD 03/10/2023 10:03:46[facility] 10-13-2023 Hospital Discharge instructions Patient Education 01/26/2023 [...] face You have trouble talking or seeing 7439-3814 [employer]. [address] [place] [address]. All rights reserved. This information is not intended as a substitute for professional medical care. Always follow yourhealthcare professional's instructions. Follow Up Care 01/26/2023 04:58:43 With:MEY MADDOX Address: [address] [place] [address] [phone] When:2-4 days [facility] 10-13-2023 Note Discharge Instructions Thank you for allowing [place] to assist you with your healthcare needs. The following is importantdischarge information regarding your hospital visit. Diagnosis from Today's Visit Headache What to Do Next Instructions from Your Care Team No qualifying data available. Post Acute Orders No qualifying data available. You Need to Schedule the Following Appointments Follow Up with MEY MADDOX When Within 2-4 days Where: [address] [place] [address] [phone] Allergies Crestor (Myalgia) Demerol HCl (SEVERE N/V) [...] face You have trouble talking or seeing 5700-2640 [employer]. [address] [place] [address]. All rights reserved. This information is not intended as a substitute for professional medical care. Always follow yourhealthcare professional's instructions. Additional Information VACCINATE! IT SAVES LIVES! Members of the community who have not yet received the COVID-19 vaccine and would like to receive it can visit one of [facility] vaccine clinics. There are many vaccine clinic locations within the [facility]. For locations and available times, please visit www.[email or web address].[place].gov/. It is important to note that some COVID mobile vaccine clinics are held outdoors and may be canceled in rainy or stormy conditions. To learn more about pediatric vaccinations (ages 5-11), we invite you to visit the [facility] webpage. https://www.[facility].org/pages/0423-Eirif-Gaqcqqkolhw-Gzzvmltnsa-Brcsd-Vma stions.htmlTo learn more about the COVID-19 vaccine, we invite you to visit the CDC website for a list of frequently asked questions. https://www.cdc.gov/coronavirus/2019-ncov/vaccines/faq.html [facility] [employer] Patient Portal Access Instructions: Stay connected with your healthcare team and access your personal medical information anytime with the [place] [employer] Patient Portal. If you would like a full copy of your medical records please contact the [facility] Medical Records Department Sunday through Sunday between 8a.m. and 4:30p.m. Please follow the directions below to access the portal: 1.Access the email account you provided upon registration to the [facility].2.Look for an invitation email from [facility].3.Open the email and access the invitation link: Accept Invitation to [place] [employer]4.Fill in the required christian to create your account. Sign into [email or web address] with your username and password that you [...] you will allow to register on the [employer] Patient Portal for access to your information. You can also access the [employer] Patient Portal on the [facility]. Simply click on Health Records under [employer] and then click on the [employer] logo. HOW TO SAFELY DISPOSE OF PRESCRIPTION [...] Call your local pharmacy or go to [email or web address].[facility]/[email or web address] to find one close to you.3.Make use of household items: Use cat litter or old coffee grounds to dispose medications if other options arenot available. Mix your drugs with these household products, seal them in an airtight container andthrow it into the garbage. Call [facility]: [phone] to be sure your drugs can be [...] aware that I should contact my doctor. Patient/National Account Executive Signature: Date/Time: Relationship to Patient: Witness Name/Signature: Date/Time: [facility]10-13-2023 Note ORIGINAL EXAMINATION: CT OF THE HEAD [...] Sign Date: 01/26/2023 6:03:14 AM Ordering Provider: [facility]09-13-2023 Hospital Discharge instructions Patient Education 12/27/2022 19:54:32 [...] no pain medicines were prescribed, youcan use idos-fvz-wukzaac pain medicines. Follow instructions for taking any [...] painful when eating. You may use an dhgt-txs-bkxblja local numbing solution for pain relief. If [...] control the wound bleeding with direct pressure. 4442-5872 [employer]. [address] [place] [address]. All rights reserved. This information is not intended as a substitute for professional medical care. Always follow yourhealthcare professional's instructions. Follow Up Care 12/27/2022 17:33:24 With:MEDARDO GARCIA Address: [address] [place] [phone] Business (1) When:2-4 days [facility] 09-13-2023 Note Discharge Instructions Thank you for allowing [place] to assist you with your healthcare needs. [...] MEDARDO GARCIA When Within 2-4 days Where: [address] [place] [address] [phone] Business (1) Allergies Crestor (Myalgia) Demerol HCl [...] no pain medicines were prescribed, youcan use hion-auz-yseznrq pain medicines. Follow instructions for taking any [...] painful when eating. You may use an tuwu-ntq-hfkzpve local numbing solution for pain relief. If [...] control the wound bleeding with direct pressure. 1209-9413 [employer]. [address] [place] [address]. All rights reserved. This information is not intended as a substitute for professional medical care. Always follow yourhealthcare professional's instructions. Additional Information VACCINATE! IT SAVES LIVES! Members of the community who have not yet received the COVID-19 vaccine and would like to receive it can visit one of [facility] vaccine clinics. There are many vaccine clinic locations within the [facility]. For locations and available times, please visit www.[email or web address].[place].gov/. It is important to note that some COVID mobile vaccine clinics are held outdoors and may be canceled in rainy or stormy conditions. To learn more about pediatric vaccinations (ages 5-11), we invite you to visit the [facility] webpage. https://www.[facility].org/pages/4150-Xmhim-Zlpknxgffdo-Pifxazrqsn-Axlnd-Wnt stions.htmlTo learn more about the COVID-19 vaccine, we invite you to visit the CDC website for a list of frequently asked questions. https://www.cdc.gov/coronavirus/2019-ncov/vaccines/faq.html [employer] Patient Portal Access Instructions: Stay connected with your healthcare team and access your personal medical information anytime with the [employer] Patient Portal. If you would like a full copy of your medical records please contact the [facility] Medical Records Department Sunday through Sunday between 8a.m. and 4:30p.m. Please follow the directions below to access the portal: 1.Access the email account you provided upon registration to the hospital.2.Look for an invitation email from [facility].3.Open the email and access the invitation link: Accept Invitation to [employer]4.Fill in the required christian to create your account. Sign into [email or web address] with your username and password that you [...] you will allow to register on the [place] [employer] Patient Portal for access to your information. You can also access the [employer] Patient Portal on the [facility]. Simply click on Health Records under [employer] and then click on the [employer] logo. [...] Call your local pharmacy or go to http://bit.[facility]/6W2Wj1j to find one close to you.3.Make use of household items: Use cat litter or old coffee grounds to dispose medications if other options arenot available. Mix your drugs with these household products, seal them in an airtight container andthrow it into the garbage. Call [facility]: [phone] to be sure your drugs can be [...] aware that I should contact my doctor. Patient/National Account Executive Signature: Date/Time: Relationship to Patient: Witness Name/Signature: Date/Time: [facility]09-13-2023 NoteSinus rhythm Left axis deviation Abnormal R-wave progression, late transition Electronic Signature: ABHIJEET RAMSEY MD 12/27/2022 18:24:15[facility] 09-13-2023 Note ORIGINAL EXAMINATION: ONE XRAY VIEW [...] Sign Date: 12/27/2022 6:17:13 PM Ordering Provider: [place] [address]-13-2023 Note ORIGINAL EXAMINATION: CT OF THE CERVICAL [...] Sign Date: 12/27/2022 6:23:50 PM Ordering Provider: [place] [address]-13-2023 Note ORIGINAL EXAMINATION: CT OF THE HEAD [...] Sign Date: 12/27/2022 6:25:47 PM Ordering Provider: [facility]09-13-2023 Evaluation + Plan note Diagnostic Tests Pending * B-Hydroxybutyrate 12/27/22 Future Scheduled Tests Laboratory* Thyroid Stimulating Hormone 04/04/22 * A1C Hemoglobin 04/04/22 * Complete Blood Count 04/04/22 * Lipid Profile 04/04/22 * Hepatitis C Antibody IgG 04/04/22 * Microalbumin Level Urine 04/04/22 * Complete Metabolic Panel 04/04/22 Radiology* BD Bone Density DEXA Axial Skeleton 04/04/22 [facility] 05-05-2023 SARS-CoV-2 (COVID-19) RNA ANTHONY+probe Ql (Nph) Negative *NA* (08/18/22 11:19 AM)AO Auto Urine [id number] Evaluation + Plan note Future Scheduled Tests Laboratory* Thyroid Stimulating Hormone 04/04/22 * A1C Hemoglobin 04/04/22 * Complete Blood Count 04/04/22 * Lipid Profile 04/04/22 * Hepatitis C Antibody IgG 04/04/22 * Microalbumin Level Urine 04/04/22 * Complete Metabolic Panel 04/04/22 Radiology* BD Bone Density DEXA Axial Skeleton 04/04/22 [facility] 06-14-2022 NoteHNO ID: [id number] Author: Annette Lr APRN.MACHINE PULLER OVER Service: ? Author Type: Nurse Practitioner Type: Progress Notes Filed: 09/27/2021 10:02 AM Note Text: Patient came in with caregiver. Fell and hit her head. Is on a blood thinner and has severe bruising and swelling around eye accompanied by a severe headache. Patient caregiver is going to take her to the ER.[facility]06-14-2022 History of Present illness Narrative* Annette Lr APRN.MACHINE PULLER OVER - 09/27/2021 10:00 AM EDT Patient came in with caregiver. Fell and hit her head. Is on a blood thinner and has severe bruising and swelling around eye accompanied by a severe headache. Patient caregiver is going to take her to the ER. documented [facility] + Plan note Future Appointments Appointment Date:05/31/2021 10:30:00 AM Scheduled Provider:MEDARDO GARCIA DO Location:[facility] Appointment Type:PC OV Follow Up Future Scheduled Tests Radiology* US Thyroid 05/13/20 * US Thyroid 05/12/20 [facility] Evaluation + Plan note Future Appointments Appointment Date:07/19/2021 10:45:00 AM Scheduled Provider:MEDARDO GARCIA DO Location:[facility] Appointment Type:PC OV Follow Up Appointment Date:07/28/2021 01:00:00 PM Scheduled Provider:JENI HARRINGTON MD Location:[facility] Appointment Type:ENDO OV Future Scheduled Tests Radiology* XR Sacrum/Coccyx Minimum 2 Views 06/10/21 * XR Spine Lumbar AP/LAT 06/10/21 [facility] Evaluation + Plan note Future Appointments Appointment Date:09/26/2022 11:00:00 AM Scheduled Provider:MEDARDO GARCIA DO Location:[facility] Appointment Type:PC OV Future Scheduled Tests Laboratory* Thyroid Stimulating Hormone 04/04/22 * A1C Hemoglobin 04/04/22 * Complete Blood Count 04/04/22 * Lipid Profile 04/04/22 * Hepatitis C Antibody IgG 04/04/22 * Microalbumin Level Urine 04/04/22 * Complete Metabolic Panel 04/04/22 Radiology* BD Bone Density DEXA Axial Skeleton 04/04/22 * XR Spine Lumbar W/Obliques 4 Views 10/05/21 [facility] Evaluation + Plan note Future Appointments Appointment Date:09/07/2023 02:30:00 PM Scheduled Provider: Location:[facility] Appointment Type:PT Treatment - [facility] Evaluation + Plan note Future Appointments Appointment Date:02/12/2025 01:00:00 PM Scheduled Provider: Location:[facility] Appointment Type:MEDS - Diabetic Individual Visit Appointment Date:02/20/2025 11:00:00 AM Scheduled Provider:DAVION VARGAS MD Location[facility] Appointment Type:PM OV Appointment Date:06/12/2025 01:00:00 PM Scheduled Provider:MARCO PENNY Location:[facility] Appointment Type:PC OV Future Scheduled Tests Laboratory* Vitamin B1 (Thiamine), Blood 07/29/24 * Folate Level 07/29/24 * Thyroid Stimulating Hormone 07/29/24 * Vitamin B12 Level 07/29/24 * A1C Hemoglobin 07/29/24 * Complete Blood Count 07/29/24 * Lipid Profile 07/29/24 * Albumin/Creatinine Ratio, Random Urine 07/29/24 * PTH, Intact 07/29/24 * Vitamin D Level 07/29/24 * Complete Metabolic Panel 07/29/24 [facility] Evaluation noteNo assessment information available [facility] Work Phone: Evaluation note* Diagnosis Injury of head, initial encounter- Primary documented in this encounter [facility] course Narrative No data available for this section [facility] Hospital Discharge instructions No data available for this section [facility] Progress note No data available for this section [facility] Chief Complaint and Reason for Visit Chief Complaint CAROTID STENOSIS, TI A FALL Chief Complaint PRE OP Advance Directives No Advanced Directives Records Found Advance Directive Response Recorded Date/ Time Advance Directives No March 20, 2017 8:00am Living Will No September 27, 2021 10:23am Power of Coil Assembler No September 27 10:23am Summary Purpose Family [...] Care Team (unrecognized sect ion and content) Elevator Pilot Relationship Specialty Start Date End Date Medardo Garcia IV, MD [address] [place] [address] [id number] PCP - General Family Practice 09/27/21 Team Status: Active Member Role Status Dates Dr. Cosme High , DO Family Provider Active Dr. Medardo Garcia , DO Primary Care Provider Active Team Status: Inactive Member Role Status Dates Dr. Medardo Garcia DO Primary Care Provider Active Dr. Edis Martinez MD Attending Provider, Referring Pr lazaroer Active Goals (unrecognized section and content) Goals may be documented in a n alternate section Source Comments (unrecognize d section and content) In the event this informatio n is protected by the Federal Confidentiality of Alcohol and Drug Abuse Patient Records regulations: The Federal rules restrict any use of the information to criminally investigate or prosecute any alcohol or drug abuse patient.[facility] INFORMATION SOURCE (unrecogn ized section and content) DATE CREATED AUTHOR 09/28/2021 [facility] DATE CREATED AUTHOR AUTHOR'S ORGANIZ ATION 12/18/2023 [facility] DATE CREATED AUTHOR AUTHOR'S ORGANIZ ATION 06/12/2024 [facility] DATE CREATED AUTHOR AUTHOR'S ORGANIZ ATION 02/13/2025 [facility] FOR RECORDS PERTAINING TO PATIENTS WHO ARE [...] BE BASED ON THE PRIMARY CLINICAL RECORDS. [facility]. provides no warranty or guarantee of the accuracy or completeness of information in this document.
[2025-03-20] MEDS: 0.9% Normal Saline (1000mL) 1,000 ML 75 ML IV (22:41)
[2025-03-21 02:30] VITALS: BP 124/45; PULSE 71; RESP 18; TEMP 36.7; O2SAT 96
[2025-03-21 03:44] VITALS: BMI 24.7
[2025-03-21 05:14] VITALS: BMI 24.8
--- NOTE | 2025-03-21 05:55 | MRI_ITS ---
PROCEDURE: MRA NECK WITHOUT CONTRAST 03/21/2025 REASON FOR EXAM: SUSPECTED STROKE COMPARISON: None TECHNIQUE: MRA NECK WITHOUT CONTRAST FINDINGS: Carotids: There is no significant plaque noted in either common carotid artery. Right ICA stenosis (NASCET): None. Left ICA stenosis (NASCET): None. Vertebrals: Left dominant. MRI/MRA Neck without Contrast IMPRESSION: Normal MRA of the neck. Reading Location: [id number]
--- NOTE | 2025-03-21 05:55 | MRI_ITS ---
PROCEDURE: MRA HEAD ONLY WITHOUT CONTRAST 03/21/2025 REASON FOR EXAM: SUSPECTED STROKE COMPARISON: MRI head without contrast, same day. TECHNIQUE: Procedure Code: [id number] Modality: MR Procedure: MRA HEAD ONLY WITHOUT CONTRAST Multiplanar multisequential imaging was performed without IV contrast administration. 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 There is a origin of the LATHE SANDER on the right. Anterior Circulation: No evidence of stenoses, vascular malformations or aneurysms greater than 4 mm. Posterior Circulation: No evidence of stenoses, vascular malformations or aneurysms greater than 4 mm. MRI/MRA Head ONLY without Contrast IMPRESSION: No significant abnormality. Other findings as noted. Reading Location: [id number]
--- NOTE | 2025-03-21 05:55 | ECHOD_ITS ---
Reason For Study : TIA/CVA Procedure This was a 2D Doppler, Color Flow transthoracic echocardiogram. Myocardial strain analysis was performed in this exam to aid in the assessment of cardiac function. The patient is in sinus rhythm. Exam performed portable in patient room. Left Ventricle Normal LV size. The left ventricular ejection fraction is 70 %. No regional wall motion abnormalities noted. Right Ventricle Normal RV size. Normal systolic function. Atria Normal left atrium. Normal right atrium. Mitral Valve There is moderate to severe mitral annular calcification. Tricuspid Valve Normal tricuspid valve. Mild (1+) tricuspid valve insufficiency. Pulmonary artery systolic pressure is 21 mmHg. Aortic Valve Trisinus/trileaflet aortic valve. Moderate focal aortic valve calcification. Peak aortic valve gradient 44 mmHg. Mean aortic valve gradient 28 mmHg. Moderate aortic stenosis. Pulmonic Valve Normal pulmonic valve. Great Vessels Normal aortic root. The pulmonary artery is normal size. Inferior vena cava collapse with respiration. Pericardium/Pleural No pericardial effusion. MMode/2D Measurements & Calculations LVIDd: 4.0 cm IVSd: 1.1 cm LVOT diam: 1.9 cm LVIDs: 1.8 cm LVPWd: 1.1 cm LVOT area: 3.0 cm2 RVDd: 3.3 cm FS: 54.6 % Ao root diam: 2.8 cm asc Aorta Diam: 2.9 cm LAV(MOD- bp): 43.9 ml LAV(MOD- bp) Indexed: 25.8 ml/m2 LAV(MOD- sp2): 42.2 ml LAV(MOD- sp4): 45.6 ml SV(MOD- sp4): 26.3 ml LVAd ap4: 16.1 cm2 LVAd ap2: 15.8 cm2 LVLd ap4: 6.3 cm LVLd ap2: 6.7 cm SI(MOD- sp4): 15.5 ml/m2 EDV(MOD-sp4): 35.0 ml EDV(MOD-sp2): 30.6 ml EDV(sp4-el): 35.2 ml EDV(sp2-el): 31.7 ml LVAs ap4: 7.1 cm2 LVAs ap2: 8.7 cm2 LVLs ap4: 5.0 cm LVLs ap2: 5.9 cm ESV(MOD-sp4): 8.6 ml ESV(MOD-sp2): 11.0 ml ESV(sp4-el): 8.6 ml ESV(sp2-el): 10.9 ml EF(MOD-sp4): 75.3 % EF(MOD-sp2): 64.1 % EF(sp4-el): 75.6 % SV(MOD-sp2): 19.7 ml SV(sp4-el): 26.6 ml Ao sinus diam: 2.9 cm SI(MOD-sp2): 11.6 ml/m2 Ao ST Junction: 2.1 cm LA dimension(2D): 4.0 cm LA A4 area: 17.9 cm2 TAPSE: 1.8 cm RA A4 area: 11.0 cm2 Time Measurements MV dec time: 0.33 sec Doppler Measurements & Calculations MV E max xiang: 99.7 cm/sec Lat Peak E' Xiang: 10.4 cm/sec Med Peak E' Xiang: 5.0 cm/sec MV A max xiang: 141.9 cm/sec E/E' lat: 9.6 E/E' med: 20.0 MV E/A: 0.70 MV V2 max: 131.9 cm/sec MV dec slope: 297.6 cm/sec2 Ao V2 max: 329.6 cm/sec MV max P.0 mmHg Ao max P.5 mmHg MV V2 mean: 78.3 cm/sec Ao V2 mean: 256.8 cm/sec MV mean P.9 mmHg Ao mean P.0 mmHg MV V2 VTI: 55.9 cm Ao V2 VTI: 79.9 cm MVA(VTI): 1.5 cm2 AV (velocity ratio): 0.35 PJ(I,D): 1.0 cm2 PJ(V,D): 0.96 cm2 LV V1 max: 106.9 cm/sec SV(LVOT): 83.0 ml PA V2 max: 86.1 cm/sec LV V1 max P.6 mmHg LV V1 mean P.2 mmHg LV V1 mean: 85.2 cm/sec LV V1 VTI: 28.0 cm TR max xiang: 216.4 cm/sec TR max P.7 mmHg ECHO/Echo Complete Interpretation Summary Normal LV size. The left ventricular ejection fraction is 70 %. There is moderate to severe mitral annular calcification. Mild (1+) tricuspid valve insufficiency. Mean aortic valve gradient 28 mmHg. Moderate aortic stenosis. The global longitudinal strain is borderline abnormal. The global longitudinal strain = -16.1% (abnormal). Ordering Physician: Kris Stoddard Performed By: Kassidy Felix RDCS
--- NOTE | 2025-03-21 06:00 | MRI_ITS ---
PROCEDURE: BRAIN WITHOUT CONTRAST 03/21/2025 REASON FOR EXAM: ACUTE STROKE SUSPECTED TECHNIQUE: Procedure Code: MRIBR Modality: MR Procedure: BRAIN WITHOUT CONTRAST Multiplanar and multisequence images were obtained. COMPARISON: CT head without contrast, 09/27/2021. FINDINGS: There is patchy periventricular and subcortical white matter signal abnormality in both cerebral hemispheres consistent with chronic ischemic white matter disease. There is a normal sulcal pattern and gyral configuration. There is no evidence of acute intracranial hemorrhage or infarction. The truong-white differentiation is well preserved. There is no evidence of restricted diffusion. The ventricles and basilar cisterns are normal. There are normal flow voids demonstrated in the recognized intracranial vessels. The cerebellum and brainstem are unremarkable. The cerebellar pontine angles are normal. The craniovertebral junction is normal. The sella and suprasellar regions are normal. The orbits and retro-orbital regions are unremarkable. The nasal septum is midline. There is no significant paranasal sinus disease. The mastoid air cells are clear. There is normal bone marrow signal in the skull base and calvarium. MRI/Brain without Contrast IMPRESSION: One. No evidence of acute stroke. Two. Other findings as noted. Stroke Alert: No evidence of acute stroke. The critical findings in the findings and impression above were relayed directl y by me by telephone to the charge nurse, in the PCU, on 03/21/2025 at 12:10 pm with readback verification. Reading Location: [id number]
[2025-03-21 06:15] VITALS: BP 147/51; PULSE 71; RESP 18; TEMP 36.6; O2SAT 96
[2025-03-21 08:00] VITALS: BP 148/48; PULSE 70; RESP 18; TEMP 36.4; O2SAT 95
[2025-03-21 08:04] VITALS: BMI 24.8
[2025-03-21 08:41] VITALS: O2SAT 96
[2025-03-21] MEDS: Senna/Docusate Sodium 1 Tablet 2 TABLET PO (08:44)
--- NOTE | 2025-03-21 09:34 | MRI_ITS ---
PROCEDURE: SPINE CERVICAL (ROUTINE) 03/21/2025 REASON FOR EXAM: RIGHT UPPER PARESTHESIAS TECHNIQUE: Procedure Code: MRISPC Modality: MR Procedure: SPINE CERVICAL (ROUTINE) Multiplanar and multisequence images were obtained without IV contrast administration. FINDINGS: Normal cervical vertebral body height and alignment although there is limitation due to motion artifact. There is no compression deformity or Chiari deformity. Axial images are particularly limited. Central protrusion at C2-3 results in mild canal narrowing without cord compression. At C3-4, mild left-sided foraminal stenosis from uncinate spur. C4-5 is negative for central or foraminal impingement. At C5-6 there is micje-fhevdmi-xfeb-left foraminal stenosis from uncinate spur. At C6-7 there is mild canal narrowing from broad-based disc bulging with moderate bilateral C7 foraminal stenosis. C7-T1 exhibits no central or foraminal impingement MRI/Spine Cervical (Routine) IMPRESSION: Multilevel foraminal stenosis. No cord compression. Motion artifact. Correla te for right-sided radiculopathy at C5-6 and C6-7 Reading Location[facility]
--- NOTE | 2025-03-21 09:36 | PN.HOSP_ITS ---
Reason for Visit Chief Complaint: Slurred speech for few days. Subjective Subjective Patient is an 89-year-old lady who presented with slurred speech. Prior to that patient had experienced intermittent paresthesias involving the right upper extremity. Admitted to a monitored bed for workup of suspected CVA Objective Data Objective Data Vital Signs: Vital Signs Temp Pulse Resp BP Pulse Ox O2 Del Method 97.9 F 71 18 147/51 H 96 Room Air 03/21/25 06:15 03/21/25 06:15 03/21/25 06:15 03/21/25 06:15 03/21/25 08:41 03/21/25 08:41 Oxygen Delivery Method Room Air Weight: 65.7 kg Body Mass Index (BMI) 24.8 Intake & Output: Intake and Output for Last 24 Hours 03/19/25 03/20/25 03/21/25 23:59 23:59 23:59 Intake Total 500 / 500 Balance 500 / 500 Lab / Micro Data 03/20/25 20:35 03/20/25 20:35 Labs: Laboratory Results - last 24 hr 03/20/25 20:35: WBC 10.4, RBC 4.25, Hgb 12.8, Hct 37.9, MCV 89.2, MCH 30.1, MCHC 33.8, RDW Std Deviation 42.6, RDW Coeff of Callie 13.1, Plt Count 330, MPV 10.3, Immature Gran % (Auto) 0.300, Neut % (Auto) 69.6, Lymph % (Auto) 19.7, Rosebud % (Auto) 8.8, Eos % (Auto) 1.1, Baso % (Auto) 0.5, Absolute Neuts (auto) 7.2, Absolute Lymphs (auto) 2.04, Nucleated RBC % 0, Sodium 140, Potassium 3.5, Chloride 106, Carbon Dioxide 19.7 L, Anion Gap 14, BUN 15, Creatinine 0.61 L, E stim Creat Clear Calc 41.17 L, Est GFR (MDRD) Non-Af 85, BUN/Creatinine Ratio 23.8 H, Glucose 192 H, Hemoglobin A1c 8.7 H, Calcium 9.0, Magnesium 2.3 H, Triglycerides 108, Cholesterol 275 H, LDL Cholesterol, Calc 199, VLDL Cholesterol 22, HDL Cholesterol 57, Cholesterol/HDL Ratio 4.82, TSH 2.240 03/20/25 21:22: POC Glucose 183 H 03/20/25 22:48: POC Glucose 220 H 03/21/25 06:22: POC Glucose 180 H Physical Exam Narrative GENERAL: cooperative HEENT: Atraumatic; normocephalic EYES; Anicteric, Normal Conjunctiva NECK; supple, normal thyroid, RESPIRATORY: Diminished to auscultation CARDIOVASCULAR: Regular S1 S2, GI: soft, normoactive bowel sounds, : No Renal angle tenderness; EXTREMITIES: No edema, no clubbing, MUSCULOSKELETAL: no muscle wasting NEURO: Awake; no lateralizing signs. 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 Prior to that patient had experienced intermittent paresthesias involving the right upper extremity. Admitted to a monitored bed for workup of suspected CVA 1. TIA ? Patient presented with intermittent slurred speech as well as paresthesias involving the right upper extremity. Initial head CT was negative for CVA. Patient has been admitted to monitored bed. As part of her evaluation ordered MRI 2D echo lipid panel TSH as well as hemoglobin A1c. Also ordered MRI of the cervical spine given her paresthesias which are lasted for almost 6 months. 2. Acute hypertensive urgency ? Patient blood pressure was markedly elevated 250/90On admission. Did receive labetalol. With patient presented with strokelike symptoms permissive hypertensive protocol was followed 3. Cervical radiculopathy ? Patient has known diagnosis of chronic cervical neuropathy. MRI of the cervical spine ordered for subsequent eval 4. Diabetes mellitus type II -patient's oral hypoglycemics held. Placed on long acting insulin, Accu-Cheks a.c. and at bedtime and covered with sliding scale insulin. Hemoglobin A1c ordered on admission came back at 8.7 5. Dyslipidemia ? Patient lipid panel did show LDL of 199 with total cholesterol of 275. Given patient presentation goal will be to keep patient LDL less than 70. Patient was started on statin therapy 6. DVT prophylaxis ? Subcu Lovenox Time spent in the patient's overall evaluation,decision-making process, review of diagnostic data, adjustment of management, discussion with other providers, nursing nursing and ancillary staff involved in patient's care documentation, 40 Minutes Charges/Coding Visit Charges Inpatient E&M: 16586 Subs Hosp L2 NIHSS NIHSS Nursing Documentation NIHSS Nursing Documentation: NIHSS: Ischemic Stroke/TIA Start: 03/20/25 20:33 Text: For PCU Patients: NIH and Neuro Check every 4 Status: Active hours, PRN and with change in RN caregiver. Freq: [id number] Protocol: Activity Type Activity Date Activity User E-sign Co-sign Detail Recorded Client Recorded Date Recorded By Document 03/21/25 07:30 TIARA [id number] 03/21/25 08:03 VT 03/21/25 07:30 NIH Stroke Scale [NIHSS] A score of 0 is normal or asymptomatic . Total possible score is 42. Inpatient: RN or Physician to activate a stroke alert for onset of new stroke symptoms or with NIHSS increase >/= 3 points. Following change in neurological status, NIHSS will be performed per physician order or more frequently PRN. -1a. Level of Consciousness 0 - Alert; keenly responsive -1b. LOC Questions 0 - Answers BOTH questions correctly -1c. LOC Commands 0 - Performs BOTH tasks correctly -2. Best Gaze 0 - Normal -3. Visual 0 - No visual loss -4. Facial Palsy 1 - Minor paralysis ( flattened nasolabial fold , asymmetry on smiling) -5a. Left Arm 0 - No drift; arm holds 90 ( or 45) degrees for full 10 seconds -5b. Right Arm 0 - No drift; arm holds 90 ( or 45) degrees for full 10 seconds -6a. Left Leg 0 - No drift; leg holds 30- degree position for full 5 seconds -6b. Right Leg 0 - No drift; leg holds 30- degree position for full 5 seconds -7. Limb Ataxia 0 - Absent -8. Sensory 1 - Mild-to- moderate sensory loss; -9. Best Language 0 - No aphasia; normal -10. Dysarthria 1 = Mild-to- moderate dysarthria; -11. Extinction and Inattention 0 - No abnormality -Total 3 Query Text:A score of 0 is normal or asymptomatic. Total possible score is 42 . ED: Notify Physician for NIHSS increase by > / = 3 points. Inpatient: RN or Physician to activate a stroke alert for NIHSS increase of > / = 3 points. Coma Scale [Assess] -Eye Opening Spontaneous -Motor Obeys Commands -Verbal Oriented [Total] -Coma Scale Total 15
--- NOTE | 2025-03-21 11:25 | CASEMGMT ---
Social work SW called to ask about POA/LW. The son reported he can corn picker his mother at [facility]. LAUREL Torres
[2025-03-21 11:30] VITALS: BP 159/55; PULSE 73; RESP 18; TEMP 36.3; O2SAT 96
--- NOTE | 2025-03-21 11:45 | CASEMGMT ---
Social Work SW spoke with the patient about DC home with HH or outpatient therapy. Patient reported she does not want either one. LAUREL Torres
--- NOTE | 2025-03-21 12:27 | CASEMGMT ---
Social Work Per imaging pt negative for stroke, therefore PHQ9 not completed. LAUREL Torres
--- NOTE | 2025-03-21 12:53 | NEURO.CONS ---
Assessment and Plan: Neuro Assessment/Plan ALEXUS MOYER is a 89 F with a past medical history of HTN, HLP and DM, being evaluated by Teleneurology for slurred speech and right sided numbness. She is known to have right sided numbness/pain which has been attributed to cervical radiculopathy. On examination, this also involves the face. Therefore, a potential contribution from intracranial source to be considered. Brain MRI is negative for acute ischemia. But shows evidence of white matter hyperintensity. One area involves the descending/ascending tracts may contribute to this and be a sequela of small vessel stroke/pathology. MRA head and neck shows no severe stenosis. The left vertebral artery is dominant and right appears to end in PICA. MRI neck not officially interpreted yet but with findings of severe canal stenosis at C1-C2 level. Symptoms are likely related to worsening of underlying symptoms in the setting of hypertensive urgency (most likely) vs less likely TIA. Plan: - 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 urgency (most likely) vs TIA: MRA negative for severe stenosis TTE is pending ASA 81 mg daily Cardiovascular risk factors control appear not adequately achieved: LDL < 70 (goal) use statin atorvastatin 40 mg daily. BP < 130/80 titrate antihypertensive medications. Glycemic control. Recommend HB1C PT/OT/speech - Cervical spine stenosis: Known. It is not clear who is currently managing. Recommend spine surgery (neurosurgery vs orthopedics) evaluation if not done before. HPI Consult Data Date of Consult: 03/21/25 HPI Narrative HPI Narrative: ALEXUS MOYER, is a 89 F is directly admitted from [facility] ER after she was found to have slurred speech for 2 to 3 days ago and BP 250/90. She was given 1 dose of IV hydralazine and blood pressure dropped to 150s/80. She also has chronic right arm numbness and tingling with history of chronic cervical neuropathy. She went to outside office for pain injection in the neck but it was canceled due to high blood pressure And was sent to ED. She reports having sometime slurred speech per family that it may get better on blood pressure is high. Numbness also may get better when blood pressure is elevated. [facility] Medical History Diabetes Hypertension Hyperlipidemia Home Medications ?Medication ?Instructions ?Recorded ?Last Taken ?Type aspirin 81 mg chewable tablet 81 mg PO DAILY 03/19/17 03/20/17 History bisoprolol 5 1 tab PO DAILY 03/19/17 03/20/25 09:24 History mg-hydrochlorothiazide 6.25 mg tablet calcium 500 mg 1 ea PO DAILY 03/19/17 Unknown History (carb,gluconate)-magnesium 250 mg (gluc,oxide) tablet diphenhydramine HCl 25 mg capsule 50 mg PO QHS 03/19/17 Unknown History furosemide 20 mg tablet 20 mg PO DAILY PRN swelling 03/19/17 Unknown History insulin glargine 100 unit/mL 14 unit SQ .QD 03/19/17 Unknown History subcutaneous solution (Lantus U-100 Insulin) lisinopril 40 mg tablet 40 mg PO DAILY 03/19/17 03/20/25 09:27 History methocarbamol 500 mg tablet 500 mg PO Q6H PRN PRN Muscle Spasm 03/19/17 Unknown History vitamin E 268 mg (400 unit) capsule 400 unit PO BID 03/19/17 Unknown History ibuprofen 200 mg tablet (Advil) 400 mg PO BID 03/20/25 03/20/25 09:30 History Allergy/AdvReac Type Severity Reaction Status Date / Time rosuvastatin (From Crestor) Allergy Intermediate myalgia Verified 03/20/25 20:56 bupivacaine (From Allergy Unknown Verified 09/27/21 10:10 Sensorcaine/Epinephrine) epinephrine (From Allergy Unknown Verified 09/27/21 10:10 Sensorcaine/Epinephrine) iodine Allergy Unknown Verified 09/27/21 10:10 meperidine (From Demerol) Allergy Unknown Verified 09/27/21 10:10 Social History Smoking Status: Never smoker Vital Signs Vital Signs Vital Signs: 03/20/25 20:00 03/20/25 22:00 03/20/25 22:00 Temperature 98.2 F Temperature Source Oral Pulse Rate 71 Pulse Strength Normal (2+) Respiratory Rate 18 Respiratory Effort Normal Non-Labored Respiratory Depth Normal Respiratory Pattern Normal Blood Pressure 199/68 H Blood Pressure Mean 111 Blood Pressure Source Monitor Blood Pressure Position Semi-Fowlers Blood Pressure Location Right Forearm Pulse Ox 95 Oxygen Delivery Method Room Air Room Air 03/21/25 02:30 03/21/25 06:15 03/21/25 08:00 Temperature 98.1 F 97.9 F 97.6 F L Temperature Source Oral Oral Oral Pulse Rate 71 71 70 Pulse Strength Respiratory Rate 18 18 18 Respiratory Effort Respiratory Depth Respiratory Pattern Blood Pressure 124/45 H 147/51 H 148/48 H Blood Pressure Mean 71 83 81 Blood Pressure Source Monitor Monitor Monitor Blood Pressure Position Semi-Fowlers Semi-Fowlers Semi-Fowlers Blood Pressure Location Right Forearm Right Forearm Right Arm Pulse Ox 96 96 95 Oxygen Delivery Method Room Air Room Air Room Air 03/21/25 08:03 03/21/25 08:07 03/21/25 08:41 Temperature Temperature Source Pulse Rate Pulse Strength Normal (2+) Respiratory Rate Respiratory Effort Normal Non-Labored Respiratory Depth Normal Respiratory Pattern Normal Blood Pressure Blood Pressure Mean Blood Pressure Source Blood Pressure Position Blood Pressure Location Pulse Ox 96 Oxygen Delivery Method Room Air Room Air Weight Weight: 65.7 kg Body Mass Index (BMI) 24.8 Lab / Micro Data 03/20/25 20:35 03/20/25 20:35 Labs: Laboratory Results - last 24 hr 03/20/25 20:35: WBC 10.4, RBC 4.25, Hgb 12.8, Hct 37.9, MCV 89.2, MCH 30.1, MCHC 33.8, RDW Std Deviation 42.6, RDW Coeff of Callie 13.1, Plt Count 330, MPV 10.3, Immature Gran % (Auto) 0.300, Neut % (Auto) 69.6, Lymph % (Auto) 19.7, [place] % (Auto) 8.8, Eos % (Auto) 1.1, Baso % (Auto) 0.5, Absolute Neuts (auto) 7.2, Absolute Lymphs (auto) 2.04, Nucleated RBC % 0, Sodium 140, Potassium 3.5, Chloride 106, Carbon Dioxide 19.7 L, Anion Gap 14, BUN 15, Creatinine 0.61 L, Estim Creat Clear Calc 41.17 L, Est GFR (MDRD) Non-Af 85, BUN/Creatinine Ratio 23.8 H, Glucose 192 H, Hemoglobin A1c 8.7 H, Calcium 9.0, Magnesium 2.3 H, Triglycerides 108, Cholesterol 275 H, LDL Cholesterol, Calc 199, VLDL Cholesterol 22, HDL Cholesterol 57, Cholesterol/HDL Ratio 4.82, TSH 2.240 03/20/25 21:22: POC Glucose 183 H 03/20/25 22:48: POC Glucose 220 H 03/21/25 06:22: POC Glucose 180 H 03/21/25 11:26: POC Glucose 211 H Imaging Radiology Impression Head MRA 03/21/25 05:55 IMPRESSION: No significant abnormality. Other findings as noted. Reading Location: [facility] Neck MRA 03/21/25 05:55 IMPRESSION: Normal MRA of the neck. Reading Location: [facility] Brain MRI 03/21/25 06:00 IMPRESSION: One. No evidence of acute stroke. Two. Other findings as noted. Stroke Alert: No evidence of acute stroke. The critical findings in the findings and impression above were relayed directly by me by telephone to the charge nurse, in the PCU, on 03/21/2025 at 12:10 pm with readback verification. Reading Location: [facility] Active Medications Active Medications Active Medications: Current Medications Generic Name Dose Route Start Last Admin Trade Name Freq PRN Reason Stop Dose Admin Acetaminophen 650 mg 03/20/25 20:33 03/21/25 08:45 Acetaminophen 325 Mg Tablet PO 650 mg Q4H PRN PRN Administration Pain 1-10 Or Fever>99.6 Aspirin 81 mg 03/21/25 08:00 03/21/25 08:45 Aspirin 81 Mg Tab.Chew PO 81 mg BREAKFAST MARQUITA Administration Atorvastatin Calcium 40 mg 03/20/25 22:00 03/20/25 22:50 Atorvastatin Calcium 40 Mg Tablet PO 40 mg QHS MARQUITA Administration Enoxaparin Sodium 40 mg 03/20/25 20:33 03/21/25 08:44 Enoxaparin 40 Mg/0.4 Ml Syringe SC 40 mg DAILY MARQUITA Administration Glucagon 1 mg 03/20/25 20:33 Glucagon 1 Mg/Ml Syringe IM X1 PRN Hypoglycemia Protocol Hydralazine HCl 5 mg 03/20/25 20:33 Hydralazine 20 Mg/Ml Vial IV 03/21/25 20:33 Q30M PRN maintain BP parameters with HR <60 Sodium Chloride 250 mls @ 15 mls/hr 03/20/25 20:13 IV .[id number] PRN Saline Flush Sodium Chloride 250 mls @ 15 mls/hr 03/20/25 20:13 IV .[id number] PRN Additional IVPB Infusion Dextrose 250 mls @ 0 mls/hr 03/20/25 20:33 Dextrose 10%-Water IV .Q0M PRN HYPOGLYCEMIA Protocol As Directed Insulin Human Lispro 0 unit 03/20/25 22:00 03/21/25 11:51 Insulin Lispro 100 Unit/Ml Insuln.Pen SC 4 u ACHS MARQUITA Administration Protocol Iopamidol 0 ml 03/20/25 20:33 03/21/25 08:46 Contrast Allergy Safety Check IV Not Given X1 MARQUITA Labetalol HCl 10 - 20 mg 03/20/25 20:33 Labetalol 20 Mg/4 Ml Vial IV 03/21/25 20:33 Q10M PRN PRN maintain BP parameters with HR >/=60 Nitroglycerin 0.4 mg 03/20/25 20:33 Nitroglycerin (Inpatient Use) 0.4 Mg Tab.Subl SL Q5M PRN CARDIAC/CHEST PAIN Pantoprazole Sodium 40 mg 03/21/25 10:00 03/21/25 08:44 Pantoprazole Sodium 40 Mg Tablet PO 40 mg DAILY MARQUITA Administration Senna/Docusate Sodium 2 tablet 03/20/25 20:33 03/21/25 08:44 Senna/Docusate Sodium 1 Tablet PO 2 tablet BID PRN PRN Administration Constipation Sodium Chloride 10 - 40 ml 03/20/25 20:13 0.9% Saline Lock 10 Ml Syringe IV UD PRN SALINE FLUSH NIHSS NIHSS Nursing Documentation NIHSS Nursing Documentation: NIHSS: Ischemic Stroke/TIA Start: 03/20/25 20:33 Text: For PCU Patients: NIH and Neuro Check every 4 Status: Active hours, PRN and with change in RN caregiver. Freq: [id number] Protocol: Activity Type Activity Date Activity User E-sign Co-sign Detail Recorded Client Recorded Date Recorded By Document 03/21/25 07:30 AL [id number] 03/21/25 08:03 [place] 03/21/25 07:30 NIH Stroke Scale [NIHSS] A score of 0 is normal or asymptomatic . Total possible score is 42. Inpatient: RN or Physician to activate a stroke alert for onset of new stroke symptoms or with NIHSS increase >/= 3 points. Following change in neurological status, NIHSS will be performed per physician order or more frequently PRN. -1a. Level of Consciousness 0 - Alert; keenly responsive -1b. LOC Questions 0 - Answers BOTH questions correctly -1c. LOC Commands 0 - Performs BOTH tasks correctly -2. Best Gaze 0 - Normal -3. Visual 0 - No visual loss -4. Facial Palsy 1 - Minor paralysis ( flattened nasolabial fold , asymmetry on smiling) -5a. Left Arm 0 - No drift; arm holds 90 ( or 45) degrees for full 10 seconds -5b. Right Arm 0 - No drift; arm holds 90 ( or 45) degrees for full 10 seconds -6a. Left Leg 0 - No drift; leg holds 30- degree position for full 5 seconds -6b. Right Leg 0 - No drift; leg holds 30- degree position for full 5 seconds -7. Limb Ataxia 0 - Absent -8. Sensory 1 - Mild-to- moderate sensory loss; -9. Best Language 0 - No aphasia; normal -10. Dysarthria 1 = Mild-to- moderate dysarthria; -11. Extinction and Inattention 0 - No abnormality -Total 3 Query Text:A score of 0 is normal or asymptomatic. Total possible score is 42 . ED: Notify Physician for NIHSS increase by > / = 3 points. Inpatient: RN or Physician to activate a stroke alert for NIHSS increase of > / = 3 points. Coma Scale [Assess] -Eye Opening Spontaneous -Motor Obeys Commands -Verbal Oriented [Total] -Coma Scale Total 15 NIHSS 1a. Level of Consciousness: 0 - Alert; keenly responsive 1b. LOC Questions: 0 - Answers BOTH questions correctly 1c. LOC Commands: 0 - Performs BOTH tasks correctly 2. Best Gaze: 0 - Normal 3. Visual: 0 - No visual loss 4. Facial Palsy: 0 - Normal symmetrical movements 5a. Left Arm: 0 - No drift; arm holds 90 (or 45) degrees for full 10 seconds 5b. Right Arm: 0 - No drift; arm holds 90 (or 45) degrees for full 10 seconds 6a. Left Le - No drift; leg holds 30-degree position for full 5 seconds 6b. Right Le - No drift; leg holds 30-degree position for full 5 seconds 7. Limb Ataxia: 0 - Absent 8. Sensory: 1 - Xlrm-ic-zyluzmxm sensory loss; 9. Best Language: 0 - No aphasia; normal 10. Dysarthria: 0 - Normal 11. Extinction and Inattention: 0 - No abnormality Total: 1
--- NOTE | 2025-03-21 13:04 | CASEMGMT ---
MAGDI LARRY note: Intro role of CM to patient and SANDOVAL form explained re: Observation status for treatment of TIA.? Explained hospitalization will be paid per?her insurance policy for Outpatient billing?and condition will continue to be evaluated for Inpt necessity. Also let pt know that [facility] sends paper in the billing packet with their phone number if questions arise. Pt verbalizes understanding and does not have further questions. ?Form signed, copy made and placed in chart, and original given to pt. Fern SAHU RN CM
--- NOTE | 2025-03-21 13:06 | CASEMGMT ---
Social Work SW had an OP speech therapy script signed in case patient changes her mind. Green sheet and script on the chart. LAUREL Torres
--- NOTE | 2025-03-21 13:32 | CM.UR ---
MAGDI LARRY NOTE: Per PT/OT, no additional recommendations. ST was in to see pt earlier but pt was out of room at that time. MAGDI LARRY called ST at this time to inquire if they were available to eval pt today. No answer. VM left. MAGDI LARRY to room. Pt sitting up in chair, son and other family members @ bedside. Pt lives alone. She states she feels safe discharging home alone. Pt continues w/slurred speech. Per family, this comes and goes. Discussed ST w/pt and family. Pt states she is interested in doing OP ST, stating, I have to do something, this bothers me. Script for OP ST signed by Dr Ni given to pt. Pt and family provided w/list of local locations that do OP ST and made aware they can take to location of choice. Further questions answered. They deny having further discharge needs or concerns. Fern SAHU RN CM
--- NOTE | 2025-03-21 14:10 | PCM.DC.SUM ---
Providers Date of Admission: 03/20/25 Primary Care Physician: Dr. 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 Prior to that patient had experienced intermittent paresthesias involving the right upper extremity. Admitted to a monitored bed for workup of suspected CVA 1. TIA ? Patient presented with intermittent slurred speech as well as paresthesias involving the right upper extremity. Initial head CT was negative for CVA. Patient has been admitted to monitored bed. As part of her evaluation ordered MRI 2D echo lipid panel TSH as well as hemoglobin A1c. Also ordered MRI of the cervical spine given her paresthesias which are lasted for almost 6 months. Patient MRI was negative for CVA. It was felt symptoms were related to acute hypertensive urgency as a result of pain due to her severe cervical stenosis. Note and recommendations from [facility] teleneurologist reviewed. Plan was for patient to have been referred to spine surgery at [facility] Dr. Schneider patient however patient and family wanted patient to stay in the [facility] system. They were instructed to call primary care physician within 3 to 5 days for referral to be evaluated by spine surgery 2. Acute hypertensive urgency ? Patient blood pressure was markedly elevated 250/90On admission. Did receive labetalol. With patient presented with strokelike symptoms permissive hypertensive protocol was followed ? Adjusted patient home meds once CVA was ruled 3. Cervical radiculopathy ? Patient has known diagnosis of chronic cervical neuropathy. MRI of the cervical spine ordered for subsequent eval 4. Diabetes mellitus type II -patient's oral hypoglycemics held. Placed on long acting insulin, Accu-Cheks a.c. and at bedtime and covered with sliding scale insulin. Hemoglobin A1c ordered on admission came back at 8.7 5. Dyslipidemia ? Patient lipid panel did show LDL of 199 with total cholesterol of 275. Given patient presentation goal will be to keep patient LDL less than 70. Patient was started on statin therapy 6. DVT prophylaxis ? Subcu Lovenox Time spent in the patient's overall evaluation,decision-making process, review of diagnostic data, adjustment of management, discussion with other providers, nursing nursing and ancillary staff involved in patient's care documentation, 40 Minutes Medications at Discharge Home Medications aspirin 81 mg chewable tablet 81 mg PO DAILY 03/19/17 bisoprolol 5 mg-hydrochlorothiazide 6.25 mg tablet 1 tab PO DAILY 03/19/17 calcium 500 mg (carb,gluconate)-magnesium 250 mg (gluc,oxide) tablet 1 ea PO DAILY 03/19/17 diphenhydramine HCl 25 mg capsule 50 mg PO QHS 03/19/17 furosemide 20 mg tablet 20 mg PO DAILY PRN swelling 03/19/17 insulin glargine 100 unit/mL subcutaneous solution (Lantus U-100 Insulin) 14 unit SQ .QD 03/19/17 lisinopril 40 mg tablet 40 mg PO DAILY 03/19/17 methocarbamol 500 mg tablet 500 mg PO Q6H PRN PRN Muscle Spasm 03/19/17 vitamin E 268 mg (400 unit) capsule 400 unit PO BID 03/19/17 ibuprofen 200 mg tablet (Advil) 400 mg PO BID 03/20/25 amlodipine 5 mg tablet 5 mg PO DAILY #30 tabs 03/21/25 atorvastatin 40 mg tablet 40 mg PO QHS #30 tabs 03/21/25 Physical Exam Narrative GENERAL: cooperative HEENT: Atraumatic; normocephalic EYES; Anicteric, Normal Conjunctiva NECK; supple, normal thyroid, RESPIRATORY: Diminished to auscultation CARDIOVASCULAR: Regular S1 S2, GI: soft, normoactive bowel sounds, : No Renal angle tenderness; EXTREMITIES: No edema, no clubbing, MUSCULOSKELETAL: no muscle wasting NEURO: Awake; no lateralizing signs. SKIN: No Rash PSYCH; Flat affect Weight / BMI Weight Weight: 65.7 kg Body Mass Index (BMI) 24.8 ABG / Lab / Microbiology Data 03/20/25 20:35 03/20/25 20:35 Laboratory: Laboratory Results - last 24 hr 03/20/25 20:35: WBC 10.4, RBC 4.25, Hgb 12.8, Hct 37.9, MCV 89.2, MCH 30.1, MCHC 33.8, RDW Std Deviation 42.6, RDW Coeff of Callie 13.1, Plt Count 330, MPV 10.3, Immature Gran % (Auto) 0.300, Neut % (Auto) 69.6, Lymph % (Auto) 19.7, [place] % (Auto) 8.8, Eos % (Auto) 1.1, Baso % (Auto) 0.5, Absolute Neuts (auto) 7.2, Absolute Lymphs (auto) 2.04, Nucleated RBC % 0, Sodium 140, Potassium 3.5, Chloride 106, Carbon Dioxide 19.7 L, Anion Gap 14, BUN 15, Creatinine 0.61 L, Estim Creat Clear Calc 41.17 L, Est GFR (MDRD) Non-Af 85, BUN/Creatinine Ratio 23.8 H, Glucose 192 H, Hemoglobin A1c 8.7 H, Calcium 9.0, Magnesium 2.3 H, Triglycerides 108, Cholesterol 275 H, LDL Cholesterol, Calc 199, VLDL Cholesterol 22, HDL Cholesterol 57, Cholesterol/HDL Ratio 4.82, TSH 2.240 03/20/25 21:22: POC Glucose 183 H 03/20/25 22:48: POC Glucose 220 H 03/21/25 06:22: POC Glucose 180 H 03/21/25 11:26: POC Glucose 211 H Radiography Diagnostic Testing: Radiology Impression Echocardiogram 03/21/25 05:55 Interpretation Summary Normal LV size. The left ventricular ejection fraction is 70 %. There is moderate to severe mitral annular calcification. Mild (1+) tricuspid valve insufficiency. Mean aortic valve gradient 28 mmHg. Moderate aortic stenosis. The global longitudinal strain is borderline abnormal. The global longitudinal strain = -16.1% (abnormal). Ordering Physician: Kris Stoddard Performed By: Kassidy Felix RDCS Head MRA 03/21/25 05:55 IMPRESSION: No significant abnormality. Other findings as noted. Reading Location: [facility] Neck MRA 03/21/25 05:55 IMPRESSION: Normal MRA of the neck. Reading Location: [facility] Brain MRI 03/21/25 06:00 IMPRESSION: One. No evidence of acute stroke. Two. Other findings as noted. Stroke Alert: No evidence of acute stroke. The critical findings in the findings and impression above were relayed directly by me by telephone to the charge nurse, in the PCU, on 03/21/2025 at 12:10 pm with readback verification. Reading Location: [facility] D/C Instructions DC O2, CPAP, BIPAP Needs Home O2 Discharge instructions: No Meaningful Use Info Meaningful Use Meaningful Use Diagnoses (Choose all that apply): None applicable Discharge Plan Admission Admit Date/Time: 03/20/25 19:59 Attending Provider: Blaze Ni Primary Care Provider: Isacc Saravia Consulting Providers: Kaushal Westfall; Donna Browne; Katey Calle; María Kerr; Eden Mann; Alec Sanchez; Beverly Wang; Getachew Feng; Abdi Huang; Wilmer Staples; Purvi Roca; Ivelisse Bruce; Arias Camar[place]; Dawn Abernathy; Nkechi Harris; Gil Diallo; Main Santos; Danae Byrne; Chinmay Powell; Becky Taveras; Isatu Red; Kris Stoddard Discharge Orders/Prescriptions Prescriptions: New atorvastatin 40 mg Tablet 40 mg PO QHS Qty: 30 0RF amlodipine 5 mg tablet 5 mg PO DAILY Qty: 30 0RF Continued methocarbamol 500 MG tablet 500 mg PO Q6H PRN PRN (Reason: Muscle Spasm) insulin glargine [Lantus U-100 Insulin] 100 UNIT/ML solution 14 unit SQ .QD bisoprolol-hydrochlorothiazide 1 TAB tablet 1 tab PO DAILY diphenhydramine HCl 25 MG capsule 50 mg PO QHS aspirin 81 MG tablet,chewable 81 mg PO DAILY furosemide 20 MG tablet 20 mg PO DAILY PRN (Reason: swelling) lisinopril 40 MG tablet 40 mg PO DAILY vitamin E 400 UNIT capsule 400 unit PO BID calcium carb,gluc-mag gluc,ox 1 EACH tablet 1 ea PO DAILY ibuprofen [Advil] 200 mg tablet 400 mg PO BID Rx Instructions: takes 400 mg in AM, 200 mg in PM Referrals / Follow Up: Isacc Saravia DO [Primary Care Provider, Family Practice] - Within 1 Week Disposition Disposition (needs filled in before D/C Order can be placed): Home, Self Care
== END 2025-03-21 14:55 | disposition home or self-care (01) ==
PROVIDERS: Internal Medicine; Admitting Provider Hospitalist; PCP Student in an Organized Health Care Education/Training Program; Visit Provider Internal Medicine
DX: G45.9 Transient cerebral ischemic attack, unspecified (principal); E11.40 Type 2 diabetes mellitus with diabetic neuropathy, unspecified; E11.21 Type 2 diabetes mellitus with diabetic nephropathy; Z79.4 Long term (current) use of insulin; Z79.82 Long term (current) use of aspirin; Z86.73 Personal history of transient ischemic attack (TIA), and cerebral infarction without residual deficits; I10 Essential (primary) hypertension; R47.81 Slurred speech; I16.0 Hypertensive urgency; R29.701 NIHSS score 1; E78.5 Hyperlipidemia, unspecified; M54.12 Radiculopathy, cervical region; Z79.899 Other long term (current) drug therapy
CPT/HCPCS: 36415; 70544; 70547; 70551; 72141; 80048; 80061; 82962; 83036; 83735; 84443; 85025; 93306; 96360; 96361; 96372; 97162; 97165; 99221; G0378; G0379